=== PATIENT | female | born 1955 | race Caucasian/White ===

== ENCOUNTER 2020-05-19 08:12 | Outpatient (CLI) | payer MEDICARE, SELFPAY ==
--- NOTE | ~2020-05-19 | NM_ITS ---
EXAMINATION: NM madelyn stress w perfusion DATE: 05/19/2020 14:23 INDICATION: Dyspnea on exertion. TECHNIQUE: Rest images were obtained following intravenous administration of 10.9 mCi Tc99m tetrofosm in (Myoview). The patient was infused intravenously with Lexiscan (regadenoson). Then, 33 mCi Tc99m t etrofosmin (Myoview) was administered intravenously, and supine and prone stress images were obtained . Data was reconstructed into short axis and horizontal and vertical long axis SPECT images. Gated SP ECT images were also obtained. COMPARISON: Myocardial perfusion imaging 11/11/2016 FINDINGS: There is no definite reversible or fixed perfusion abnormality to suggest ischemia or infar ction. There is no segmental wall motion abnormality. Left ventricular ejection fraction measures > 70%. IMPRESSION: 1. No definite ischemia or infarct. 2. Normal left ventricular ejection fraction measuring >70%. Reviewed, dictated and finalized at location A.
--- NOTE | 2020-05-19 09:38 | EST_ITS ---
Patient Info Name: Inna Craig Age: 64 years : 1955 Gender: Female Ht: 60 in Wt: 250 lbs BSA: 2.27 m2 Exam Date: 05/19/2020 9:45 AM Exam Location: [facility] Stress Patient Status: Outpatient Admit Date: 05/19/2020 Staff Ordering Physician: Aleksandra Robbins NP Attending Provider: Aleksandra Robbins NP Exercise Technologist: Ashley Hampton RDCS Exercise Physician: Alvarez Nunes DO Exam Type: CA stress madelyn w NM Study Info Indications R06.02 - Shortness of breath A regadenoson stress test was performed. Summary 1. 1. Negative Lexiscan stress test for ischemic ST changes by ECG criteria. 2. 2. Stable hemodynamics throughout the test. 3. 3. Nuclear scan to follow and will be reported separately. Please correlate with it. 4. 4. Patient informed of the above results. Protocol: Lexiscan Stress ECG Details Stage: REST Duration (min): 9 min : 30 sec HR (bpm): 69 SBP (mmHg): 128 DBP (mmHg): 72 Stage: REST Duration (min): 14 min : 35 sec HR (bpm): 71 SBP (mmHg): 128 DBP (mmHg): 72 Stage: STAGE 1 Duration (min): 1 min : 0 sec HR (bpm): 72 SBP (mmHg): 137 DBP (mmHg): 80 Stage: RECOVERY Duration (min): 1 min : 0 sec HR (bpm): 78 SBP (mmHg): 137 DBP (mmHg): 80 Stage: RECOVERY Duration (min): 2 min : 0 sec HR (bpm): 78 SBP (mmHg): 128 DBP (mmHg): 76 Stage: RECOVERY Duration (min): 3 min : 0 sec HR (bpm): 77 SBP (mmHg): 117 DBP (mmHg): 71 Stage: RECOVERY Duration (min): 4 min : 0 sec HR (bpm): 76 SBP (mmHg): 117 DBP (mmHg): 71 Stage: RECOVERY Duration (min): 5 min : 0 sec HR (bpm): 74 SBP (mmHg): 130 DBP (mmHg): 71 Stage: RECOVERY Duration (min): 5 min : 3 sec HR (bpm): 74 SBP (mmHg): 130 DBP (mmHg): 71 Rest HR: 71 bpm Peak HR: 80 bpm Rest Sys BP: 128 mmHg Peak Sys BP: 137 mmHg Max Pred HR: 156 bpm % Max Pred HR: 51 % Target HR: 133 bpm Max RPP: 10,960 bpm*mmHg Termination Reason: Completed protocol Cardiac Symptoms: Shortness of breath Total Time: 1 min : 0 sec Rest Sales BP: 72 mmHg Peak Sales BP: 80 mmHg Total Dose: 0.4 mg Resting ECG Sinus rhythm. Stress ECG No ST changes. Arrhythmias None. Report Signatures
== END 2020-05-19 08:13 | disposition home or self-care (01) ==
LOC: ANHCARD 08:25
PROVIDERS: PCP Nurse Practitioner; Visit Provider Nurse Practitioner
DX: R06.02 Shortness of breath (principal)
CPT/HCPCS: 78452; 93017; A9502; J2785

== ENCOUNTER 2020-07-13 14:04 | Outpatient (CLI) | payer MEDICARE, SELFPAY ==
--- NOTE | ~2020-07-13 | MR_ITS ---
EXAMINATION: MR humerus RT wo con DATE: 07/13/2020 14:59 INDICATION: Right upper arm pain TECHNIQUE: Magnetic resonance imaging (MRI) of the right humerus/upper arm was performed without intr avenous contrast. Sequences included axial, sagittal and coronal T1-weighted FSE and axial, sagittal and coronal fluid sensitive FSE STIR. COMPARISON: Radiographs dated 03/21/2019 FINDINGS: Bone alignment is normal. Normal marrow signal throughout with no fracture, reactive edema or patholo gic marrow replacing process. Normal muscle bulk and signal throughout the right upper arm. No right elbow or glenohumeral joint effusion. Supraspinatus tendon tear along the greater tuberosity which ap pears likely for near full-thickness. Further assessment is limited by the large field of view of betsy ging no evident asymmetric fatty atrophy of the visualized rotator cuff musculature. IMPRESSION: 1. Right rotator cuff tear involving the distal supraspinatus tendon which appears winter near full-t hickness however evaluation is limited due to the large field of view of imaging. If clinically indic ated could consider dedicated right shoulder MRI. Reviewed, dictated and finalized at location A. 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 Right rotator cuff tear involving the distal supraspinatus tendon which appe ars winter near full-thickness however evaluation is limited due to the large f ield of view of imaging. If clinically indicated could consider dedicated right shoulder MRI.
== END 2020-07-13 14:05 | disposition home or self-care (01) ==
PROVIDERS: PCP Nurse Practitioner; Visit Provider Nurse Practitioner
DX: M75.111 Incomplete rotator cuff tear or rupture of right shoulder, not specified as traumatic (principal)
CPT/HCPCS: 73218

== ENCOUNTER → 2020-07-29 08:06 | Outpatient (CLI) | payer MEDICARE, SELFPAY ==
--- NOTE | ~2020-07-29 | CT_ITS ---
EXAMINATION:CT chest wo con DATE: 07/29/2020 08:31 INDICATION: Solitary pulmonary nodule. TECHNIQUE: Computed tomography (CT) of the chest was performed without intravenous contrast. Automate d exposure control and iterative reconstruction technique were employed. The dose-length product (DLP ) was 349.73 mGy-cm. COMPARISON: Chest CT 02/28/2014 FINDINGS: There is a 7 mm nodule in right upper lobe, stable from 02/28/2014. There is mild atelectasi s bilaterally. There are subpleural bands in the lower lobes. No pleural effusion. The heart size is normal. There are coronary artery calcifications. No pericardial effusion. There is diffuse hepatic s teatosis. There are changes of anterior fusion procedure in cervical spine. There is mild thoracic sp ondylosis. IMPRESSION: 1. Chronic pulmonary nodule, consistent with granulomatous disease. Reviewed, dictated and finalized at location A. ER ENAMELING
== END ==
PROVIDERS: PCP Nurse Practitioner; Visit Provider Nurse Practitioner
DX: R91.1 Solitary pulmonary nodule (principal)
CPT/HCPCS: 71250

== ENCOUNTER → 2020-08-31 13:29 | Outpatient (CLI) | payer MEDICARE, SELFPAY ==
--- NOTE | ~2020-08-31 | MM_ITS ---
EXAMINATION: MM screening lisa BI w isabella HISTORY: Screening TECHNIQUE: Craniocaudal and mediolateral oblique 3-D tomosynthesis images were obtained and synthetic 2-D images were generated. CAD analysis was submitted and interpreted. COMPARISON: Comparison to multiple prior studies sequentially, with oldest reviewed study dated 01/20. BREAST PARENCHYMAL COMPOSITION: There are scattered areas of fibroglandular density. FINDINGS: There is no evidence of suspicious mass, calcification, or architectural distortion to sugg est malignancy in either breast. There has been no suspicious interval change. IMPRESSION: 1. No mammographic evidence of malignancy. 2. Recommend routine screening mammography in one year. BI-RADS Category 1: Negative Reviewed, dictated and finalized at location A. 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
== END ==
PROVIDERS: PCP Nurse Practitioner; Visit Provider Nurse Practitioner
DX: Z12.31 Encounter for screening mammogram for malignant neoplasm of breast (principal)
CPT/HCPCS: 77063; 77067

== ENCOUNTER 2020-10-30 18:11 | Emergency (ER) | payer MEDICARE, SELFPAY ==
[2020-10-30 20:47] VITALS: BP 131/87; PULSE 116; RESP 20; TEMP 35.8; O2SAT 95
[2020-10-30] MEDS: IBUPROFEN 600 MG TABLET PO (22:23)
[2020-10-30] MEDS: diazePAM (*CRX) 5 MG TABLET PO (22:23)
--- NOTE | 2020-10-30 23:14 | ED.BACK ---
HPI - Back Pain/Injury General Chief Complaint: Back Pain/Injury Stated Complaint: jittery Time Seen by Provider: 10/30/20 21:32 History of Present Illness HPI Narrative: Patient is a 65-year-old female who presents ER with complaint of increased movement in her legs. Patient reports she has some chronic back pain that is flaring tonight. There is no improvement with Flexeril. Is causing her restless leg syndrome to be worse than typical and her legs just will not stop moving despite her taking her ropinirole. She denies any new traumatic injury. No numbness or tingling. She has no urinary or fecal incontinence/retention. Related Data Allergies Allergy/AdvReac Type Severity Reaction Status Date / Time adhesive Allergy Unknown Unknown Verified 10/30/20 20:46 ciprofloxacin Allergy Unknown Unknown Verified 10/30/20 20:46 clarithromycin Allergy Unknown Unknown Verified 10/30/20 20:46 gabapentin Allergy Unknown Unknown Verified 10/30/20 20:46 metformin Allergy Unknown diarrhea Verified 10/30/20 20:46 neomycin Allergy Unknown Itching Verified 10/30/20 20:46 oseltamivir Allergy Unknown Unknown Verified 10/30/20 20:46 Penicillins Allergy Unknown Unknown Verified 10/30/20 20:46 Sulfa (Sulfonamide Allergy Unknown Unknown Verified 10/30/20 20:46 Antibiotics) Review of Systems Genitourinary: Genitourinary: Denies nocturia and Denies urinary incontinence Musculoskeletal: Musculoskeletal: Reports back pain and Denies muscle cramps Comments: Restless legs Neurologic: Denies focal weakness and Denies numbness PMFSH Past Medical History Medical History Asthma Basal cell carcinoma BMI 45.0-49.9, adult Depression Diabetes Fibromyalgia Ganglion cyst GERD without esophagitis Hepatic steatosis Hyperlipemia, mixed Hypertension Hypertension IBS (irritable bowel syndrome) Lumbar disc disease Nodule of right lung Right rotator cuff tendinitis RLS (restless legs syndrome) Tinea pedis of both feet Type 2 diabetes mellitus with diabetic neuropathy Surgical History Surgical History History of carpal tunnel release (~1996) History of cholecystectomy (~1989) History of discectomy (~2004) Cervical History of hysterectomy (~1980) History of lithotripsy (~2001) Hx of sinus surgery (~1997) Hx of tonsillectomy Family History Family History Father Hypertension Cerebrovascular accident Family history of suicide, Onset Age: 72 Patient's father is Mother Family history of malignant neoplasm Family history of primary malignant neoplasm of liver, Onset Age: 50 Patient's mother is Grandparent Cerebrovascular accident Sibling Patient's brother is in good health Patient's sister is Other Diabetes mellitus Social History Social History Smoking status: Never smoker Alcohol intake: current Gender identity (if verbalized by the patient): Female Sexual Orientation (if Verbalized by the Patient): Straight or Heterosexual Exam Narrative: Exam Narrative: GENERAL: Well-appearing, well-nourished, and in no acute distress. HEAD: Normocephalic, atraumatic. EXTREMITIES: Normal range of motion. Constant restless movement of the lower extremities at the ankles. Back: No reproducible midline tenderness of the lumbar or sacral spine. No paraspinal muscular tenderness at these levels. No visual evidence of trauma. SKIN: Warm, dry, no rash. NEURO: No focal deficits. Alert and oriented x3. PSYCH: Normal mood and affect. Course Course Emergency Course: Patient feels much more comfortable and legs have calmed down since receiving Valium and ibuprofen. Discharge home. Vital Signs Vital signs: Vital Signs Temperature 96.4 F L 10/30/20 20:47 Pulse Rate 116 H
[2020-10-30 23:27] VITALS: BP 146/104; PULSE 99; RESP 22; O2SAT 96
== END 2020-10-30 23:29 | disposition home or self-care (01) ==
PROVIDERS: Emergency Provider Emergency Medicine; PCP Nurse Practitioner
DX: G25.81 Restless legs syndrome (principal); E11.42 Type 2 diabetes mellitus with diabetic polyneuropathy; J45.909 Unspecified asthma, uncomplicated; M79.7 Fibromyalgia; K21.9 Gastro-esophageal reflux disease without esophagitis; E78.2 Mixed hyperlipidemia; I10 Essential (primary) hypertension; K58.9 Irritable bowel syndrome, unspecified; Z85.828 Personal history of other malignant neoplasm of skin; Z79.84 Long term (current) use of oral hypoglycemic drugs
CPT/HCPCS: 99283; A9270

== ENCOUNTER 2020-11-04 13:49 | Emergency (ER) | payer MEDICARE, SELFPAY ==
[2020-11-04 13:54] VITALS: BP 148/84; PULSE 97; RESP 16; TEMP 36.9; O2SAT 98
--- NOTE | 2020-11-04 13:56 | ED.GENADULT ---
HPI - General Adult General Chief complaint: Skin/Abscess/Foreign Body Stated complaint: swelling in nose Time Seen by Provider: 11/04/20 13:52 Source: patient Mode of arrival: ambulatory Limitations: no limitations History of Present Illness HPI narrative: 65-year-old female patient presents to the [facility] with complaints of swelling to the inside of the left nostril for the past 2 to 3 days. Patient denies any injury to the nose that she is aware of. Patient states she went to her primary doctor yesterday and they looked inside her nose but just said that it was red. Patient states that the swelling has significantly worsened since yesterday. Patient states that it is a little tender when palpating the left outer nose. Patient denies any fevers, body aches or chills. Denies any nosebleed. Patient states she is scheduled to see Dr. Bello on Monday. Patient states she does have a history of basal cell carcinoma to this area. Related Data Allergies Allergy/AdvReac Type Severity Reaction Status Date / Time adhesive Allergy Unknown Unknown Verified 10/30/20 20:46 ciprofloxacin Allergy Unknown Unknown Verified 10/30/20 20:46 clarithromycin Allergy Unknown Unknown Verified 10/30/20 20:46 gabapentin Allergy Unknown Unknown Verified 10/30/20 20:46 metformin Allergy Unknown diarrhea Verified 10/30/20 20:46 neomycin Allergy Unknown Itching Verified 10/30/20 20:46 oseltamivir Allergy Unknown Unknown Verified 10/30/20 20:46 Penicillins Allergy Unknown Unknown Verified 10/30/20 20:46 Sulfa (Sulfonamide Allergy Unknown Unknown Verified 10/30/20 20:46 Antibiotics) Review of Systems Review of Systems: Narrative: CONSTITUTIONAL: Denies fever, chills, or sweats. EYES: Denies visual changes, redness, or discharge. ENT: Positive left nostril swelling and pain. Denies rhinorrhea, congestion, sore throat, or otalgia. CARDIOVASCULAR: Denies chest pain, palpitations, or edema. RESPIRATORY: Denies cough or dyspnea. GASTROINTESTINAL: Denies abdominal pain, nausea, vomiting, or diarrhea. GENITOURINARY: Denies dysuria or hematuria. SKIN: Denies rash or itching. MUSCULOSKELETAL: Denies back pain, joint pain, or myalgia. NEUROLOGIC: Denies headache, numbness, or weakness. PSYCHIATRIC: Denies anxiety or depression. [facility] Past Medical History Medical History Abdominal pain, chronic, left upper quadrant Abscess Allergic dermatitis Asthma Basal cell carcinoma Benign hypertension Bilateral leg cramps BMI 45.0-49.9, adult Cellulitis of left ear canal Chronic pain disorder Cough in adult Degeneration of intervertebral disc, site unspecified Depression Diabetes Diabetes 1.5, managed as type 2 Diarrhea in adult patient Difficulty chewing due to dentures Disorder of thyroid, unspecified NAVARRO (dyspnea on exertion) Encounter for screening mammogram for malignant neoplasm of breast Enlarged liver Essential (primary) hypertension Family history of other cardiovascular diseases Fibromyalgia Ganglion cyst Generalized anxiety disorder GERD without esophagitis Heartburn Hepatic steatosis Hx of pancreatitis Hyperlipemia, mixed Hyperlipidemia, unspecified Hypersomnia Hypertension Hypertension Hypokalemia IBS (irritable bowel syndrome) Impacted cerumen of both ears Intervertebral disc disorders with radiculopathy, thoracolumbar region Irritable bowel syndrome with diarrhea Irritable bowel syndrome without diarrhea Left leg pain Lumbar back pain with radiculopathy affecting right lower extremity Lumbar disc disease Lymph node symptom Medicare annual wellness visit, subsequent Morbid (severe) obesity due to excess calories Morbid obesity Myalgia and myositis, unspecified Nodule of right lung Obesity (BMI 30.0-34.9) Obesity, unspecified Obstructive sleep apnea (adult) (pediatric) Other and unspecified hyperlipidemia Other asthma Other chronic pain Other specified acquired hypothyroidism Presence o
== END 2020-11-04 14:14 | disposition home or self-care (01) ==
PROVIDERS: Emergency Provider Nurse Practitioner Family; PCP Nurse Practitioner Family
DX: J34.89 Other specified disorders of nose and nasal sinuses (principal); J45.909 Unspecified asthma, uncomplicated; Z85.828 Personal history of other malignant neoplasm of skin; I10 Essential (primary) hypertension; M79.7 Fibromyalgia; K21.9 Gastro-esophageal reflux disease without esophagitis; R11.2 Nausea with vomiting, unspecified; G25.81 Restless legs syndrome; E66.01 Morbid (severe) obesity due to excess calories; E11.42 Type 2 diabetes mellitus with diabetic polyneuropathy
CPT/HCPCS: 99213; G0463

== ENCOUNTER 2021-02-07 18:59 | Inpatient (IN) | payer MEDICARE, SELFPAY ==
--- NOTE | ~2021-02-07 | CT_ITS ---
EXAMINATION: CT abdomen pelvis w con DATE: 02/07/2021 20:27 INDICATION: Epigastric abdominal pain TECHNIQUE: Computed tomography (CT) of the abdomen and pelvis was performed with 100 cc Omnipaque 350 intravenous contrast. Automated exposure control and iterative reconstruction technique were employe d. Exam dose: 1316.31 mGy-cm total exam DLP. COMPARISON: None. FINDINGS: There is atelectasis at the base of the lingula and both lower lobes. Normal heart size. No pericardial or pleural effusion. Diffuse hepatic steatosis. Status post cholecystectomy. No pancreatic mass lesion or calcification. N ormal splenic size. Normal morphology of the adrenal glands. There is an indeterminate hypoenhancing 2.7 cm mid lateral left renal mass with attenuation of 30 Stan nsfield units. There is adjacent perinephric stranding thickening of the lateral conal fascia, which may indicate inflammatory change has been renal abscess versus malignancy. Consider MR renal examinat ion for further evaluation of both kidneys. There is loss of cortical medullary differentiation in the posterior lateral aspect of the mid right kidney and anteromedial lower pole of the right kidney. Consider pyelonephritis, infarction. At least one pinpoint nonobstructing right renal calculus is noted. No ureteral calculus or hydrouret eronephrosis. There is calcification of the abdominal aorta and iliac arteries but no aneurysm. No intraperitoneal or retroperitoneal or pelvic mass lesion or adenopathy or ascites. Stable appearance of the appendix since 11/23/2017. There is diverticulosis of the left colon; no CT e vidence of diverticulitis. No bowel obstruction, bowel wall thickening, pneumatosis or intraperitonea l free air is detected. The urinary bladder is evacuated, which may account for moderate prominent thickening of the urinary bladder wall. Status post hysterectomy. Diffuse idiopathic skeletal hyperostosis of the thoracic spine. No suspicious osteolytic or osteoblastic lesions are noted. IMPRESSION: Diffuse hepatic steatosis Status post cholecystectomy Indeterminate hypoenhancing 2.7 cm mid lateral left renal mass with adjacent perinephric stranding an d lateral conal fascial thickening, with attenuation of 30 Hounsfield units. Differential diagnosis i ncludes abscess, neoplasm. Consider MR evaluation Loss of cortical medullary differentiation at sites within the right kidney, suggesting possible infe ction versus infarction At least one pinpoint nonobstructing right renal calculus Diverticulosis of the colon; no CT evidence of diverticulitis Status post hysterectomy Reviewed, dictated and finalized at Location A. Reviewed, dictated and finalized at location A. IMPRESSION: Diffuse hepatic steatosis Status post cholecystectomy Indeterminate hypoenhancing 2.7 cm mid lateral left renal mass with adjacent pe rinephric stranding and lateral conal fascial thickening, with attenuation of 3 0 Hounsfield units. Differential diagnosis includes abscess, neoplasm. Consider MR evaluation Loss of cortical medullary differentiation at sites within the right kidney, knox ggesting possible infection versus infarction At least one pinpoint nonobstructing right renal calculus Diverticulosis of the colon; no CT evidence of diverticulitis Status post hysterectomy
--- NOTE | ~2021-02-07 | MR_ITS ---
EXAMINATION: MR abdomen wo/w con DATE: 02/08/2021 12:16 INDICATION: Left kidney mass. TECHNIQUE: Magnetic resonance imaging (MRI) of the abdomen was performed without and with 20 mL Multi Demian intravenous contrast. Sequences included coronal T2-weighted FS FSE, coronal and axial FIESTA F S, coronal LAVA-flex, axial LAVA, axial T2-weighted FSE, axial T1-weighted dual-echo FSPGR, axial STI R FSE, and axial DWI. Postcontrast sequences included coronal LAVA-flex and a time course of axial LA VA. COMPARISON: CT abdomen and pelvis 02/07/2021, 01/12/2016 FINDINGS: There is diffuse hepatic steatosis. The liver and spleen are normal. There are changes of cholecystec marni. The pancreas, adrenal glands are normal. There is cortical thinning of the kidneys. There is a 2.8 cm hemorrhagic cyst in left kidney. There are no dilated loops of bowel. There are no pathologica lly enlarged lymph nodes. There is no free intraperitoneal fluid. IMPRESSION: 1. 2.8 cm hemorrhagic cyst in left kidney. 2. Mild atrophy of the kidneys. 3. Diffuse hepatic steatosis. Reviewed, dictated and finalized at location A.
[2021-02-07 19:05] VITALS: BP 144/90; PULSE 79; RESP 18; TEMP 36.5; O2SAT 95
[2021-02-07 19:36] LABS: Basophils Absolute Auto 0.1 K/mm3 (0.0-0.1); Basophils Percent Auto 0.4 % (0.2-1.2); Eosinophils Absolute Auto 0.1 K/mm3 (0-0.3); Eosinophils Percent Auto 0.8 % (0-4.4); Hematocrit 40.6 % (37.0-47.0); Hemoglobin 13.1 g/dL (12.0-15.0); Immature Granulocyte Absolute 0.19 K/mm3 (0.00-0.031); Immature Granulocyte Percent A 1.1 % (0-0.5); Lymphocytes Absolute Auto 3.48 K/mm3 (0.9-3.2); Lymphocytes Percent Auto 20.4 % (18.3-44.2); Mean Corpuscular HGB Conc 32.3 g/dl (32-36); Mean Corpuscular Volume 83.5 fl (80-100); Mean Platelet Volume 10.9 fl (7.4-10.4); Monocytes Absolute Auto 1.2 K/mm3 (0.1-0.6); Monocytes Percent Auto 6.9 % (2.6-8.5); Neutrophils Percent Auto 70.4 % (45.5-73.1); Platelet Count Result 247 k/mm3 (150-375); Red Blood Count 4.86 M/mm3 (4.2-5.4); Red Cell Distribution Width 13.9 % (11.5-14.5); White Blood Count 17.1 K/mm3 (4.5-10.0)
[2021-02-07 19:41] LABS: Add Urine Microscopic? YES; Appearance Urine Cloudy (Clear); Bacteria Urine Trace /hpf; Bilirubin Urine Negative (Negative); Blood Urine Negative (Negative); Color Urine Amber (Yellow); Glucose Urine UA Negative (Negative); Ketones Urine Negative (Negative); Leukocyte Esterase Ur 2+ LEU/UL (Negative); Mucus Urine Rare /lpf; Nitrate Urine Negative (Negative); Protein Urine 2+ mg/dL (Negative); Specific Grav Ur 1.018 (1.001-1.035); Squamous Epithelial Cell Urine Many /hpf (Few); Transitional Epi Cells Urine Rare /hpf (None Seen); WBC Urine >75 /hpf
[2021-02-07 19:47] LABS: Alanine Aminotransferase 23 U/L (4-35); Alkaline Phosphatase 88 U/L (38-126); Anion Gap 12 mmol/L (8-16); Aspartate Amino Transferase 34 U/L (14-36); Bilirubin,Total 0.9 mg/dL (0.2-1.3); Blood Urea Nitrogen 13 mg/dL (7-17); Calcium 9.8 mg/dL (8.4-10.2); Carbon Dioxide 26 mmol/L (22-30); Chloride 98 mmol/L (98-107); Estimated CRCL calculation 58 ml/min; Estimated Glomerular Filt Rate > 60; Glucose 193 mg/dL (65-105); Lipase 24 U/L (23-300); Potassium 4.1 mmol/L (3.4-5.0); Sodium 136 mmol/L (137-145)
--- NOTE | 2021-02-07 19:50 | ED.ABDPAIN ---
HPI - Abdominal Pain General Chief Complaint: Abdominal Pain Stated Complaint: epigastric pain radiating to back Time Seen by Provider: 02/07/21 19:02 Source: patient, RN notes reviewed and old records reviewed Mode of arrival: ambulatory Limitations: no limitations History of Present Illness HPI narrative: Patient 65 years old white female drove herself to the emergency room because of abdominal pain and vomiting started yesterday. Patient reported the pain at the left abdomen radiating to the left flank area and across the abdomen. Associated with multiple vomiting yesterday. Today no vomiting, patient did not eat anything today. Patient reports possible fever, chills. History of cholecystectomy, appendectomy, diverticulitis and kidney stone. History of diabetes, hypertension, hyperlipidemia, asthma, hypothyroidism. Related Data Allergies Allergy/AdvReac Type Severity Reaction Status Date / Time adhesive Allergy Unknown Unknown Verified 02/07/21 19:44 ciprofloxacin Allergy Unknown Unknown Verified 02/07/21 19:44 clarithromycin Allergy Unknown Unknown Verified 02/07/21 19:44 gabapentin Allergy Unknown Unknown Verified 02/07/21 19:44 metformin Allergy Unknown diarrhea Verified 02/07/21 19:44 neomycin Allergy Unknown Itching Verified 02/07/21 19:44 oseltamivir Allergy Unknown Unknown Verified 02/07/21 19:44 Penicillins Allergy Unknown Unknown Verified 02/07/21 19:44 Sulfa (Sulfonamide Allergy Unknown Unknown Verified 02/07/21 19:44 Antibiotics) Review of Systems Review of Systems: Narrative: CONSTITUTIONAL: Denies fever, chills, or sweats. EYES: Denies visual changes, redness, or discharge. ENT: Denies rhinorrhea, congestion, sore throat, or otalgia. CARDIOVASCULAR: Denies chest pain, palpitations, or edema. RESPIRATORY: Denies cough or dyspnea. GASTROINTESTINAL: Denies abdominal pain, nausea, vomiting, or diarrhea. GENITOURINARY: Denies dysuria or hematuria. SKIN: Denies rash or itching. MUSCULOSKELETAL: Denies back pain, joint pain, or myalgia. NEUROLOGIC: Denies headache, numbness, or weakness. PSYCHIATRIC: Denies anxiety or depression. [facility] Past Medical History Medical History Abdominal pain, chronic, left upper quadrant Abscess Allergic dermatitis Asthma Basal cell carcinoma Benign hypertension Bilateral leg cramps BMI 45.0-49.9, adult BMI greater than 40 Cellulitis of left ear canal Chronic pain disorder Cough in adult Degeneration of intervertebral disc, site unspecified Depression Diabetes Diabetes 1.5, managed as type 2 Diarrhea in adult patient Difficulty chewing due to dentures Disorder of thyroid, unspecified NAVARRO (dyspnea on exertion) Encounter for screening mammogram for malignant neoplasm of breast Enlarged liver Essential (primary) hypertension Family history of other cardiovascular diseases Fibromyalgia Ganglion cyst Generalized anxiety disorder GERD without esophagitis Heartburn Hepatic steatosis Hx of pancreatitis Hyperlipemia, mixed Hyperlipidemia, unspecified Hypersomnia Hypertension Hypertension Hypokalemia IBS (irritable bowel syndrome) Impacted cerumen of both ears Intervertebral disc disorders with radiculopathy, thoracolumbar region Irritable bowel syndrome with diarrhea Irritable bowel syndrome without diarrhea Left leg pain Lumbar back pain with radiculopathy affecting right lower extremity Lumbar disc disease Lymph node symptom Medicare annual wellness visit, subsequent Morbid (severe) obesity due to excess calories Morbid obesity Myalgia and myositis, unspecified Nodule of right lung Obesity (BMI 30.0-34.9) Obesity, unspecified Obstructive sleep apnea (adult) (pediatric) Other and unspecified hyperlipidemia Other asthma Other chronic pain Other specified acquired hypothyroidism Presence of dental prosthetic device (complete) (partial) Pyelonephritis Renal insufficiency Right arm numbness Right rotator cuff tendinitis RLS
[2021-02-07] MEDS: SODIUM CHLORIDE 0.9% IV 1,000 ML 999 ML IV CONT (20:01)
[2021-02-07] MEDS: ONDANSETRON INJ 4 MG/2 ML VIAL IV PUSH (20:02)
[2021-02-07] MEDS: HYDROmorphone HCL INJ (*CRX) 1 MG/ML SYR 0.5 MG IV PUSH (20:04)
[2021-02-07 20:05] LABS: Troponin I < 0.012 ng/mL (0.000-0.034)
[2021-02-07 20:08] VITALS: BP 137/61; PULSE 75; RESP 18; O2SAT 92
[2021-02-07 22:18] VITALS: BP 107/63; PULSE 73; RESP 18; O2SAT 93
--- NOTE | 2021-02-07 23:31 | ADMGEN ---
This patient, Inna Craig, was admitted to 3 Medical Room 340-01 @2330. Patient/family oriented to hospital policies and general routines including ID bracelet, bed and alarms, visiting hours, pain management, procedures, bathroom and other care routines, personal items, smoking policy, room service/diet, and visiting hours. Information on how to activate the Rapid Response Team has been discussed. Patient/Family are encouraged to report perceived risks to care and to ask questions if they do not understand what they are told or what they should do.
[2021-02-07 23:38] VITALS: BP 134/68; PULSE 77; RESP 18; TEMP 36.9; O2SAT 98; BMI 44.5
[2021-02-08] MEDS: SODIUM CHLORIDE 0.9% IV 1,000 ML 125 ML IV CONT ×2 (00:02→08:12)
[2021-02-08] MEDS: traMADol HCL (*CRX) 50 MG TABLET PO ×4 (01:51→23:51)
--- NOTE | 2021-02-08 02:55 | PM.IMHP ---
H&P: HPI History of Present Illness Date/Time: 02/08/21 02:55 Chief Complaint: Left abdominal pain, left flank pain Narrative: 65-year-old female past medical history of kidney stones, prior urinary tract infections, uncontrolled diabetes and chronic pain who presented to the ER with abdominal pain and flank pain. The patient reports that she has had 3 days of left anterior abdominal pain that radiates through to her back similar to when she had prior kidney stones. Pain also has radiated across her anterior abdomen to the right side as well. She denies any accompanying dysuria or hematuria. She has noticed darker urine for the last 2 days. She reports chronic urinary urgency and frequency. She reported that her symptoms worsened on the when she developed nausea and vomiting. She reported that the only thing she was able to keep down was watermelon. Her emesis was clear without hematemesis or coffee-ground emesis. She reports chronic loose stools is unchanged from baseline. She denies any hematochezia or melena. She reported having diaphoresis, subjective fevers and chills. She checked her temperature with a temporal scanning thermometer when she was diaphoretic and temperature was 97.6?. She has been afebrile since presentation to the ER. She reports that her glucoses have been high for quite some time. However over the last couple of days her glucoses have been higher than usual up in the 300s. Her last hemoglobin A1c was 10.6. Her primary care physician was talking was starting her on some insulin but has not done so yet. Her diet with little success. She is requesting a dietitian consult. She reports that her vision has been blurry for the last several months. She has not scheduled her routine eye exam due to the pandemic. She reports her last kidney stone was about 6 years ago. She does have occasional dyspnea on exertion and chest tightness. Her symptoms are usually relieved with albuterol inhaler. She has not had any recent cough or congestion. Review of Systems Review of Systems: Narrative: 12 systems were reviewed with pertinent positives and negatives per HPI. Except as documented in the HPI, all other systems were reviewed and are negative. [facility] Past Medical History Medical History (Updated 02/08/21 @ 03:47 by Carolann Martinez DO) Allergic dermatitis Asthma Basal cell carcinoma BMI greater than 40 Chronic diarrhea Chronic pain disorder Degenerative disc disease Depression Diabetes 1.5, managed as type 2 Essential (primary) hypertension Fibromyalgia Generalized anxiety disorder GERD without esophagitis Hepatic steatosis Hyperlipemia, mixed Hypothyroidism Irritable bowel syndrome with diarrhea Lumbar back pain with radiculopathy affecting right lower extremity Lumbar disc disease Morbid (severe) obesity due to excess calories Morbid obesity Nodule of right lung Obesity, unspecified Obstructive sleep apnea (adult) (pediatric) Likely obstructive sleep apnea however patient has not have polysomnogram Other asthma Right arm numbness Right rotator cuff tendinitis RLS (restless legs syndrome) Tinea pedis of both feet Type 2 diabetes mellitus with diabetic neuropathy Type 2 diabetes mellitus with other specified complication Urinary incontinence in female Surgical History Surgical History (Updated 02/08/21 @ 03:22 by Carolann Martinez DO) History of appendectomy History of carpal tunnel release (~1996) History of cholecystectomy (~1989) History of discectomy (~2004) Cervical History of lithotripsy (~2001) History of total hysterectomy with bilateral salpingo-oophorectomy (BSO) (~1980) Hx of sinus surgery (~1997) Hx of tonsillectomy Family History Family History (Updated 02/08/21 @ 03:30 by Carolann Martinez DO) Father Hypertension Cerebrovascular accident Family history of suicide, Onset Age: 72 Mother Family history of malignant neoplasm Family history of primary ma
[2021-02-08 05:51] VITALS: BP 114/56; PULSE 73; RESP 16; TEMP 36.7; O2SAT 93
[2021-02-08] MEDS: LEVOTHYROXINE SODIUM 75 MCG TABLET PO (05:52)
[2021-02-08 06:04] LABS: Basophils Absolute Auto 0.1 K/mm3 (0.0-0.1); Basophils Percent Auto 0.4 % (0.2-1.2); Eosinophils Absolute Auto 0.2 K/mm3 (0-0.3); Eosinophils Percent Auto 1.3 % (0-4.4); Hematocrit 36.7 % (37.0-47.0); Hemoglobin 11.6 g/dL (12.0-15.0); Immature Granulocyte Percent A 0.8 % (0-0.5); Lymphocytes Absolute Auto 2.73 K/mm3 (0.9-3.2); Lymphocytes Percent Auto 21.8 % (18.3-44.2); Mean Corpuscular HGB Conc 31.6 g/dl (32-36); Mean Corpuscular Hemoglobin 26.9 pg (26-34); Mean Corpuscular Volume 85.2 fl (80-100); Monocytes Absolute Auto 0.8 K/mm3 (0.1-0.6); Monocytes Percent Auto 6.3 % (2.6-8.5); Neutrophils Absolute Auto 8.7 K/mm3 (1.3-6.7); Neutrophils Percent Auto 69.4 % (45.5-73.1); Platelet Count Result 210 k/mm3 (150-375); Red Blood Count 4.31 M/mm3 (4.2-5.4); Red Cell Distribution Width 13.8 % (11.5-14.5); White Blood Count 12.5 K/mm3 (4.5-10.0)
[2021-02-08 06:28] LABS: Anion Gap 9 mmol/L (8-16); Blood Urea Nitrogen 13 mg/dL (7-17); Calcium 8.4 mg/dL (8.4-10.2); Carbon Dioxide 25 mmol/L (22-30); Chloride 104 mmol/L (98-107); Estimated CRCL calculation 59 ml/min; Estimated Glomerular Filt Rate > 60; Glucose 152 mg/dL (65-105); Potassium 3.4 mmol/L (3.4-5.0); Sodium 138 mmol/L (137-145)
[2021-02-08 06:40] VITALS: O2SAT 93
[2021-02-08 08:04] LABS: Glucose Point of Care 146 mg/dl (65-105)
[2021-02-08] MEDS: ENOXAPARIN 40 MG/0.4 ML SYRINGE SUB-Q (08:13)
[2021-02-08] MEDS: PREGABALIN (*CRX) 50 MG CAPSULE PO (08:13)
[2021-02-08] MEDS: DULoxetine HCL 60 MG CAPSULE.DR PO (08:13)
[2021-02-08 08:14] VITALS: PULSE 96; O2SAT 93
[2021-02-08] MEDS: ROSUVASTATIN 10 MG TABLET 20 MG PO (08:14)
[2021-02-08] MEDS: LOSARTAN POTASSIUM 100 MG TABLET PO (08:14)
[2021-02-08] MEDS: GLIMEPIRIDE 2 MG TABLET PO (08:14)
[2021-02-08] MEDS: atenoloL 50 MG TABLET PO (08:14)
[2021-02-08] MEDS: hydroCHLOROthiazide 12.5 MG CAPSULE PO (08:14)
[2021-02-08] MEDS: PANTOPRAZOLE 40 MG TABLET PO (08:14)
[2021-02-08] MEDS: rOPINIRole HCL 0.5 MG TABLET PO ×3 (08:15→17:42)
--- NOTE | 2021-02-08 11:13 | PCNSR ---
On 02/08/21, the student,Tg Sidhu, provided care and completed [facility] documentation on this patient. I have reviewed the student's documentation and agree with the findings.
[2021-02-08 12:32] LABS: Glucose Point of Care 180 mg/dl (65-105)
--- NOTE | 2021-02-08 13:28 | WPDURCON ---
Assessment and Plan Assessment and plan (1) Renal cyst, left: Code(s): N28.1 - Cyst of kidney, acquired Status: Acute Assessment and Plan: this is a benign hemorrhagic cyst. No further Evaluation or treatment is needed (2) Abnormal urinalysis: Code(s): R82.90 - Unspecified abnormal findings in urine Status: Acute Assessment and Plan: admitted with a presumptive diagnosis of pyelonephritis. Urine culture pending. Treat with appropriate oral antibiotics (3) History of kidney stones: Code(s): Z87.442 - Personal history of urinary calculi Status: Acute Assessment and Plan: no large stones on CT scan. Suggestion of a punctate right renal stone on CT Urology Consult Note HPI Date Seen: 02/08/21 Requesting Physician: Eloy Chavez MD Primary Care Provider: Carlos Ivan NP Consult Narrative Narrative: Inna Craig is a 65 year old female With a previous history of nephrolithiasis. She has not had any stones in the last 7 or 8 years. She was treated with lithotripsy in the past and [facility] and [place]. She comes into the hospital with a several day history of left flank pain. She had some dark urine and low-grade fever. She has been presumptively diagnosed with pyelonephritis. A CT scan revealed a 2.7 cm left renal mass. It was cystic in nature. MRI confirms hemorrhagic cyst. She does not get frequent bladder infections. She has not get frequent kidney infections. Review of Systems Review of Systems: All systems reviewed & are unremarkable except as noted in HPI and below PMFSH Past Medical History Medical History (Updated 02/08/21 @ 13:30 by Reilly Abdi MD) Allergic dermatitis Asthma Basal cell carcinoma BMI greater than 40 Chronic diarrhea Chronic pain disorder Degenerative disc disease Depression Diabetes 1.5, managed as type 2 Essential (primary) hypertension Fibromyalgia Generalized anxiety disorder GERD without esophagitis Hepatic steatosis Hyperlipemia, mixed Hypothyroidism Irritable bowel syndrome with diarrhea Lumbar back pain with radiculopathy affecting right lower extremity Lumbar disc disease Morbid (severe) obesity due to excess calories Morbid obesity Nodule of right lung Obesity, unspecified Obstructive sleep apnea (adult) (pediatric) Likely obstructive sleep apnea however patient has not have polysomnogram Other asthma Right arm numbness Right rotator cuff tendinitis RLS (restless legs syndrome) Tinea pedis of both feet Type 2 diabetes mellitus with diabetic neuropathy Type 2 diabetes mellitus with other specified complication Urinary incontinence in female Surgical History Surgical History (Updated 02/08/21 @ 07:19 by Carolann Martinez DO) H/O cervical spine surgery History of appendectomy History of carpal tunnel release (~1996) History of cholecystectomy (~1989) History of discectomy (~2004) Cervical History of lithotripsy (~2001) History of total hysterectomy with bilateral salpingo-oophorectomy (BSO) (~1980) Hx of sinus surgery (~1997) Hx of tonsillectomy Family History Family History (Updated 02/08/21 @ 03:30 by Carolann Martinez DO) Father Hypertension Cerebrovascular accident Family history of suicide, Onset Age: 72 Mother Family history of malignant neoplasm Family history of primary malignant neoplasm of liver, Onset Age: 50 Grandparent Cerebrovascular accident Sibling Patient's brother is in good health Patient's sister is Other Diabetes mellitus Social History Social History (Updated 02/08/21 @ 03:38 by Carolann Martinez DO) Social History: She has been to her current for 18 years. 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 She has 2 daughters and 2 stepdaughters. She recently lost 1 of her stepdaughters. Primary care provider: Carlos Pearl
[2021-02-08 14:00] VITALS: BP 92/52; PULSE 66; RESP 16; TEMP 36.8; O2SAT 92
--- NOTE | 2021-02-08 14:57 | PM.IMPN ---
Progress Note: A&P Assessment and Plan (1) Acute pyelonephritis: Code(s): N10 - Acute pyelonephritis Status: Acute Assessment and Plan: uti with possible pyleonephritis with left flank pain. goign for evaluation with MRI today. will contieu ceftraixone which is ordered. follw urine culture (2) Left kidney mass: Code(s): N28.89 - Other specified disorders of kidney and ureter Status: Acute Assessment and Plan: will consult urology for evaluation of this. 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 along with glimiperide, januva. ssi. hypoglycmia protocol. she is planend to start on insulin as op basis which has not yet started. Subjective Date/time seen: 02/08/21 14:57 Interval history: reports pain in her left flank. no fever, chills. no nausea, vomtiign. may be she had low grade fever. ct scan reviewd. goign for MRI today. Review of Systems Review of Systems: Narrative: - CONSTITUTIONAL: Denies weight loss, fever and chills. - HEENT: Denies changes in vision and hearing - RESPIRATORY: Denies SOB and cough. - CV: Denies palpitations and CP. - GI: reports abdominal pain, denies nausea, vomiting and diarrhea. - : Denies dysuria and urinary frequency. - MSK: Denies myalgia and joint pain. - SKIN: Denies rash and pruritus. - NEUROLOGICAL: Denies headache and syncope. - PSYCHIATRIC: Denies recent changes in mood. Denies anxiety and depression. All systems reviewed & are unremarkable except as noted in HPI and below Constitutional: Constitutional: Reports fatigue and Reports weakness Neurologic: Reports weakness Endocrine: Endocrine: Reports fatigue Exam Narrative: Exam Narrative: PHYSICAL EXAM: General: Morbidly obese, no acute distress HEENT: Mucous membranes are tacky, edentulous in upper and lower jaw, crowded posterior oropharynx, pupils are equal and reactive, large neck circumference, palpable thyroid Respiratory: no added sounds clear to ausculation, no increased work of breathing Cardiovascular: Regular rate, regular rhythm, 2+ bilateral radial pedal pulses Gastrointestinal: Obese, nontender, soft, positive bowel sounds Skin: Generalized pallor, non jaundice Musculoskeletal: No pitting edema, no clubbing, no cyanosis Neurological: alert and oreinted, no gross motor deficits noted Psychiatric: Appropriate mood and affect, pleasant and cooperative : Deferred Hematologic/lymphatic: No petechiae, no bruising, no significant lymphadenopathy Objective Data Vital Signs Vital Signs: Vital Signs - 24 hr 02/07/21 19:05 02/07/21 20:08 02/07/21 22:18 Temperature 97.7 F Pulse Rate 79 75 73 Respiratory Rate 18 18 18 Blood Pressure 144/90 H 137/61 107/63 Pulse Oximetry 95 92 93 02/07/21 23:38 02/08/21 05:51 02/08/21 06:40 Temperature 98.5 F 98.0 F Pulse Rate 77 73 Respiratory Rate 18 16 Blood Pressure 134/68 114/56 L Pulse Oximetry 98 93 93 02/08/21 08:14 Temperature Pulse Rate 96 Respiratory Rate Blood Pressure Pulse Oximetry 93 Intake/Output Intake/Output: Intake & Output 02/05/21 02/06/21 02/07/21 02/08/21 23:59 23:59 23:59 23:59 Intake Total 1050 1630 Output Total 400 Balance 1050 1230 Meds/Results Medications: Active Medications Generic Name Dose Route Start Last Admin Trade Name Freq PRN Reason Stop Dose Admin Acetaminophen 650 mg 02/08/21 03:42 Acetaminophen 325 Mg Tablet PO Q4H PRN Mild Pain (1-3) or Fever Albuterol 2.5 mg 02/08/21 03:00 Albuterol Sulfate Neb 2.5 Mg/3 Ml Inh INHALATION Q4-6H PRN shortness of breath or wheezing Alprazol
[2021-02-08 15:40] LABS: Glucose Point of Care 170 mg/dl (65-105)
[2021-02-08 19:41] VITALS: BP 104/57; PULSE 75; RESP 18; TEMP 36.3; O2SAT 96
[2021-02-08] MEDS: INSULIN GLARGINE (*BKC) 100 UNITS/ML 10 UNITS SUB-Q (21:00)
[2021-02-08 22:03] LABS: Glucose Point of Care 158 mg/dl (65-105)
[2021-02-09 04:43] VITALS: BP 98/55; PULSE 87; RESP 16; TEMP 36.9; O2SAT 92
[2021-02-09] MEDS: traMADol HCL (*CRX) 50 MG TABLET PO (05:52)
[2021-02-09] MEDS: LEVOTHYROXINE SODIUM 75 MCG TABLET PO (05:52)
[2021-02-09 05:56] LABS: Basophils Percent Auto 0.3 % (0.2-1.2); Eosinophils Absolute Auto 0.2 K/mm3 (0-0.3); Eosinophils Percent Auto 1.7 % (0-4.4); Hemoglobin 11.7 g/dL (12.0-15.0); Immature Granulocyte Absolute 0.11 K/mm3 (0.00-0.031); Immature Granulocyte Percent A 0.8 % (0-0.5); Lymphocytes Percent Auto 23.1 % (18.3-44.2); Mean Corpuscular HGB Conc 30.8 g/dl (32-36); Mean Corpuscular Hemoglobin 26.4 pg (26-34); Mean Corpuscular Volume 85.8 fl (80-100); Mean Platelet Volume 11.2 fl (7.4-10.4); Monocytes Absolute Auto 0.7 K/mm3 (0.1-0.6); Monocytes Percent Auto 5.5 % (2.6-8.5); Neutrophils Absolute Auto 8.9 K/mm3 (1.3-6.7); Neutrophils Percent Auto 68.6 % (45.5-73.1); Platelet Count Result 254 k/mm3 (150-375); Red Blood Count 4.43 M/mm3 (4.2-5.4); Red Cell Distribution Width 13.8 % (11.5-14.5)
[2021-02-09 06:07] LABS: Anion Gap 10 mmol/L (8-16); Blood Urea Nitrogen 14 mg/dL (7-17); Calcium 9.1 mg/dL (8.4-10.2); Carbon Dioxide 25 mmol/L (22-30); Chloride 102 mmol/L (98-107); Estimated CRCL calculation 45 ml/min; Estimated Glomerular Filt Rate 45; Glucose 179 mg/dL (65-105); Potassium 3.6 mmol/L (3.4-5.0); Sodium 137 mmol/L (137-145)
[2021-02-09 07:03] LABS: Glucose Point of Care 166 mg/dl (65-105)
[2021-02-09] MEDS: GLIMEPIRIDE 2 MG TABLET PO (07:08)
[2021-02-09] MEDS: ENOXAPARIN 40 MG/0.4 ML SYRINGE SUB-Q (10:29)
[2021-02-09] MEDS: DULoxetine HCL 60 MG CAPSULE.DR PO (10:29)
[2021-02-09 10:30] VITALS: PULSE 87
[2021-02-09] MEDS: rOPINIRole HCL 0.5 MG TABLET PO ×3 (10:30→16:55)
[2021-02-09] MEDS: ROSUVASTATIN 10 MG TABLET 20 MG PO (10:30)
[2021-02-09] MEDS: PREGABALIN (*CRX) 50 MG CAPSULE PO (10:30)
[2021-02-09] MEDS: LOSARTAN POTASSIUM 100 MG TABLET PO (10:30)
[2021-02-09] MEDS: atenoloL 50 MG TABLET PO (10:30)
[2021-02-09] MEDS: PANTOPRAZOLE 40 MG TABLET PO (10:31)
[2021-02-09] MEDS: hydroCHLOROthiazide 12.5 MG CAPSULE PO (10:31)
[2021-02-09 11:39] LABS: Glucose Point of Care 135 mg/dl (65-105)
[2021-02-09 14:00] VITALS: BP 107/49; PULSE 73; RESP 14; TEMP 36; O2SAT 95
--- NOTE | 2021-02-09 14:36 | PM.IMPN ---
Progress Note: A&P Assessment and Plan (1) Acute pyelonephritis: Code(s): N10 - Acute pyelonephritis Status: Acute Assessment and Plan: uti with possible pyleonephritis with left flank pain. goign for evaluation with MRI today. will contieu ceftraixone which is ordered. follw urine culture 02/09/21 14:36 Patient morbidly obese admitted with a pyelonephritis urine culture is pending patient also found to have lesion on left kidney and was concerning for malignancy however MRI showed hemorrhagic cyst patient is seen by urologist and further recommendation to follow, today patient states feeling better denies any abdominal pain nausea or vomiting fever or chills, will continue the present management will follow-up on urine culture and recommendation from urologist for further planning. (2) Left kidney mass: Code(s): N28.89 - Other specified disorders of kidney and ureter Status: Acute Assessment and Plan: will consult urology for evaluation of this. also goign for MRI (3) Type 2 diabetes mellitus with hyperglycemia: Qualifiers: Diabetes mellitus senior living insulin use: without terminal system operator use Qualified Code(s): E11.65 - Type 2 diabetes mellitus with hyperglycemia Code(s): E11.65 - Type 2 diabetes mellitus with hyperglycemia Status: Acute Assessment and Plan: lantus 10 untis here. along with glimiperide, januva. ssi. hypoglycmia protocol. she is planend to start on insulin as op basis which has not yet started. Additional Plan Patient's urine is not impressive for evidence of UTI however CT does suggest pyelonephritis in the right kidney and possible kidney mass verses kidney abscess of the left kidney. Patient has subsequently been started on empiric antibiotic therapy with Rocephin. Urine cultures are pending. The patient reports that her allergy to penicillins is intractable nausea and vomiting. She has not had any further vomiting or nausea since admission to the floor. She does have longstanding uncontrolled diabetes. Will start the patient on Lantus 10 units subq daily. Will continue home glimepiride and Januvia. Will add moderate sliding scale insulin with Accu-Cheks a.c. HS and hypoglycemia protocol. Dietitian consult. Subjective Date/time seen: 02/09/21 14:36 Patient morbidly obese admitted with a pyelonephritis urine culture is pending patient also found to have lesion on left kidney and was concerning for malignancy however MRI showed hemorrhagic cyst patient is seen by urologist and further recommendation to follow, today patient states feeling better denies any abdominal pain nausea or vomiting fever or chills, will continue the present management will follow-up on urine culture and recommendation from urologist for further planning. Interval history: reports pain in her left flank. no fever, chills. no nausea, vomtiign. may be she had low grade fever. ct scan reviewd. goign for MRI today. Review of Systems Review of Systems: All systems reviewed & are unremarkable except as noted in HPI and below Exam Narrative: Exam Narrative: Morbidly obese Patient is comfortable, NAD HEENT: eyes are clear and none icteric LUNGS:CTA HEART: RR S1S2 ABD: BS+, Soft and nontender Lower extremities: no edema SKIN: nonjaundiced Neuro: grossly intact. Objective Data Vital Signs Vital Signs: Vital Signs - 24 hr 02/08/21 19:41 02/09/21 04:43 02/09/21 10:30 Temperature 97.4 F L 98.5 F Pulse Rate 75 87 87 Respiratory Rate 18 16 Blood Pressure 104/57 L 98/55 L Pulse Oximetry 96 92 02/09/21 14:00 Temperature 96.8 F L Pulse Rate 73 Respiratory Rate 14 Blood Pressure 107/49 L Pulse Oximetry 95 Intake/Output Intake/Output: Intake & Output 02/06/21 02/07/21 02/08/21 02/09/21 23:59 23:59 23:59 23:59 Intake Total 1050 2720 1120 Output Total 1200 900 Balance 1050 1520 220 Meds/Results Medications: Active Medications Generic Name Dose Ro
[2021-02-09 17:30] LABS: Glucose Point of Care 145 mg/dl (65-105)
[2021-02-09 17:49] LABS: Glucose Point of Care 142 mg/dl (65-105)
[2021-02-09 20:33] VITALS: BP 107/49; PULSE 61; RESP 16; TEMP 36.8; O2SAT 97
[2021-02-09] MEDS: INSULIN GLARGINE (*BKC) 100 UNITS/ML 10 UNITS SUB-Q (21:09)
[2021-02-09 21:13] LABS: Glucose Point of Care 145 mg/dl (65-105)
[2021-02-10] MEDS: traMADol HCL (*CRX) 50 MG TABLET PO ×2 (00:02→05:55)
[2021-02-10 05:17] VITALS: BP 138/75; PULSE 68; RESP 16; TEMP 36.1; O2SAT 70
[2021-02-10] MEDS: LEVOTHYROXINE SODIUM 75 MCG TABLET PO (05:55)
[2021-02-10 07:50] LABS: Glucose Point of Care 155 mg/dl (65-105)
[2021-02-10 09:03] LABS: Hematocrit 36.8 % (37.0-47.0); Hemoglobin 11.5 g/dL (12.0-15.0); Mean Corpuscular HGB Conc 31.3 g/dl (32-36); Mean Corpuscular Hemoglobin 25.9 pg (26-34); Mean Corpuscular Volume 82.9 fl (80-100); Mean Platelet Volume 10.8 fl (7.4-10.4); Platelet Count Result 278 k/mm3 (150-375); Red Blood Count 4.44 M/mm3 (4.2-5.4); Red Cell Distribution Width 13.4 % (11.5-14.5); White Blood Count 11.7 K/mm3 (4.5-10.0)
[2021-02-10 09:12] LABS: Anion Gap 11 mmol/L (8-16); Blood Urea Nitrogen 13 mg/dL (7-17); Calcium 10.1 mg/dL (8.4-10.2); Carbon Dioxide 29 mmol/L (22-30); Chloride 98 mmol/L (98-107); Estimated CRCL calculation 54 ml/min; Estimated Glomerular Filt Rate 56; Glucose 150 mg/dL (65-105); Potassium 3.8 mmol/L (3.4-5.0); Sodium 138 mmol/L (137-145)
[2021-02-10 10:09] VITALS: PULSE 68
[2021-02-10] MEDS: atenoloL 50 MG TABLET PO (10:09)
[2021-02-10] MEDS: GLIMEPIRIDE 2 MG TABLET PO (10:10)
[2021-02-10] MEDS: ENOXAPARIN 40 MG/0.4 ML SYRINGE SUB-Q (10:11)
[2021-02-10] MEDS: DULoxetine HCL 60 MG CAPSULE.DR PO (10:11)
[2021-02-10] MEDS: hydroCHLOROthiazide 12.5 MG CAPSULE PO (10:11)
[2021-02-10] MEDS: PREGABALIN (*CRX) 50 MG CAPSULE PO (10:12)
[2021-02-10] MEDS: LOSARTAN POTASSIUM 100 MG TABLET PO (10:12)
[2021-02-10] MEDS: PANTOPRAZOLE 40 MG TABLET PO (10:12)
[2021-02-10] MEDS: ROSUVASTATIN 10 MG TABLET 20 MG PO (10:13)
[2021-02-10] MEDS: rOPINIRole HCL 0.5 MG TABLET PO ×2 (10:13→12:55)
[2021-02-10 11:49] LABS: Glucose Point of Care 117 mg/dl (65-105)
[2021-02-10 12:00] VITALS: BMI 44.5
[2021-02-10] MEDS: CYCLOBENZAPRINE HCL 5 MG TABLET PO (12:55)
--- NOTE | 2021-02-10 13:11 | PM.DS ---
DS: Admitting Diagnosis Admitting Diagnosis Admitting Diagnosis: Chief Complaint: Left abdominal pain, left flank pain DS: Discharge Diagnosis Discharge Diagnosis (1) Acute pyelonephritis: Code(s): N10 - Acute pyelonephritis Status: Acute Assessment and Plan: uti with possible pyleonephritis with left flank pain. goign for evaluation with MRI today. will contieu ceftraixone which is ordered. [facility] urine culture 02/09/21 14:36 Patient morbidly obese admitted with a pyelonephritis urine culture is pending patient also found to have lesion on left kidney and was concerning for malignancy however MRI showed hemorrhagic cyst patient is seen by urologist and further recommendation to follow, today patient states feeling better denies any abdominal pain nausea or vomiting fever or chills, will continue the present management will follow-up on urine culture and recommendation from urologist for further planning. (2) Left kidney mass: Code(s): N28.89 - Other specified disorders of kidney and ureter Status: Acute Assessment and Plan: will consult urology for evaluation of this. 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 along with glimiperide, januva. ssi. hypoglycmia protocol. she is planend to start on insulin as op basis which has not yet started. DS: Summary Hospital Course Reason for hospitalization: Chief Complaint: Left abdominal pain, left flank pain Narrative: 65-year-old female past medical history of kidney stones, prior urinary tract infections, uncontrolled diabetes and chronic pain who presented to the ER with abdominal pain and flank pain. The patient reports that she has had 3 days of left anterior abdominal pain that radiates through to her back similar to when she had prior kidney stones. Pain also has radiated across her anterior abdomen to the right side as well. She denies any accompanying dysuria or hematuria. She has noticed darker urine for the last 2 days. She reports chronic urinary urgency and frequency. She reported that her symptoms worsened on the when she developed nausea and vomiting. She reported that the only thing she was able to keep down was watermelon. Her emesis was clear without hematemesis or coffee-ground emesis. She reports chronic loose stools is unchanged from baseline. She denies any hematochezia or melena. She reported having diaphoresis, subjective fevers and chills. She checked her temperature with a temporal scanning thermometer when she was diaphoretic and temperature was 97.6?. She has been afebrile since presentation to the ER. She reports that her glucoses have been high for quite some time. However over the last couple of days her glucoses have been higher than usual up in the 300s. Her last hemoglobin A1c was 10.6. Her primary care physician was talking was starting her on some insulin but has not done so yet. Her diet with little success. She is requesting a dietitian consult. She reports that her vision has been blurry for the last several months. She has not scheduled her routine eye exam due to the pandemic. She reports her last kidney stone was about 6 years ago. She does have occasional dyspnea on exertion and chest tightness. Her symptoms are usually relieved with albuterol inhaler. She has not had any recent cough or congestion. Hospital Course: Patient morbidly obese admitted with a pyelonephritis urine culture is pending patient also found to have lesion on left kidney and was concerning for malignancy however MRI showed hemorrhagic cyst patient is seen by urologist and further recommendation to follow, today patient states fe
== END 2021-02-10 14:00 | disposition home or self-care (01) | DRG 690 ==
LOC: ANHED 22:43 → ANH3MED 02-08 01:09
PROVIDERS: Emergency Medicine; Family Medicine; Admitting Provider Internal Medicine; Emergency Provider Emergency Medicine; PCP Nurse Practitioner Family; Visit Provider Internal Medicine
DX: N10 Acute pyelonephritis (principal); Z68.41 Body mass index [BMI] 40.0-44.9, adult; E66.01 Morbid (severe) obesity due to excess calories; N28.89 Other specified disorders of kidney and ureter; E13.65 Other specified diabetes mellitus with hyperglycemia; E13.42 Other specified diabetes mellitus with diabetic polyneuropathy; E78.5 Hyperlipidemia, unspecified; E03.9 Hypothyroidism, unspecified; J45.909 Unspecified asthma, uncomplicated; G47.33 Obstructive sleep apnea (adult) (pediatric); F41.1 Generalized anxiety disorder; M79.7 Fibromyalgia; K21.9 Gastro-esophageal reflux disease without esophagitis; K58.0 Irritable bowel syndrome with diarrhea; K76.0 Fatty (change of) liver, not elsewhere classified; G25.81 Restless legs syndrome; I10 Essential (primary) hypertension; R32 Unspecified urinary incontinence; Z87.442 Personal history of urinary calculi; Z90.49 Acquired absence of other specified parts of digestive tract; Z85.828 Personal history of other malignant neoplasm of skin; Z90.710 Acquired absence of both cervix and uterus; Z90.722 Acquired absence of ovaries, bilateral
CPT/HCPCS: 36415; 74177; 74183; 80048; 80053; 81001; 82948; 83690; 84484; 85025; 85027; 87077; 87086; 87088; 87186; 96361; 96374; 96375; 99285; A9270; A9577; J0696; J1170; J1650; J1815; J2405; J7030; Q9967

== ENCOUNTER → 2021-06-19 08:41 | Outpatient (CLI) | payer MEDICARE, SELFPAY ==
--- NOTE | ~2021-06-19 | XR_ITS ---
XR ankle LT 2V 06/19/2021 13:23 Indication: Left ankle pain Procedure: 2 views left ankle Comparison: 07/11/2018 Findings: There is anatomic alignment. No fracture, subluxation or dislocation. There is degenerative calcaneal enthesophyte. No focal soft tissue abnormality. Ankle mortise intact. Impression: 1: No acute bone or joint abnormality. Reviewed, dictated and finalized at location A. Impression: 1: No acute bone or joint abnormality.
--- NOTE | ~2021-06-19 | XR_ITS ---
XR knee LT 2V 06/19/2021 13:23 Indication: Left knee pain Procedure: 2 views left knee Comparison: 06/15/2015 Findings: No fracture, subluxation or dislocation. No significant joint effusion. No significant join t space narrowing. No soft tissue abnormality. No foreign bodies. Impression: 1: No acute bone or joint abnormality. Reviewed, dictated and finalized at location A. Impression: 1: No acute bone or joint abnormality.
--- NOTE | ~2021-06-19 | XR_ITS ---
XR elbow LT 2V 06/19/2021 13:23 Indication: Left elbow pain Procedure: 2 views left elbow Comparison: No prior studies for comparison. Findings: No fracture, subluxation or dislocation. No significant joint effusion. No foreign bodies. Impression: 1: No acute bone or joint abnormality. Reviewed, dictated and finalized at location A. Impression: 1: No acute bone or joint abnormality.
== END ==
PROVIDERS: Visit Provider Nurse Practitioner Family
DX: M25.40 Effusion, unspecified joint (principal); M25.522 Pain in left elbow; M25.562 Pain in left knee; M25.572 Pain in left ankle and joints of left foot
CPT/HCPCS: 73070; 73560; 73600

== ENCOUNTER 2021-07-01 13:22 | Outpatient (CLI) | payer MEDICARE, SELFPAY ==
--- NOTE | ~2021-07-01 | US_ITS ---
EXAMINATION: US venous doppler LE EXAM DATE: 07/01/2021 15:34 INDICATION: M79.89 - Other specified soft tissue disorders. Bilateral leg pain. TECHNIQUE: Multiple grayscale, color flow and Doppler images of the lower extremity deep venous syste ms bilaterally were obtained and reviewed. Comparison is made to prior examination from 07/11/2018. FINDINGS: Right side: The right common femoral, femoral and profunda veins demonstrate normal color flow, respi ratory variation, augmentation and compressibility. Compressibility, color flow confirmed within the right popliteal, posterior tibial, peroneal, and greater saphenous veins. There is an anechoic righ t popliteal fossa round region measuring about 1.2 cm, without internal vascularity demonstrated, con tiguous to the popliteal artery and vein. No internal vascularity was demonstrated. Could be Rossi's cyst or thrombosed pseudoaneurysm. Left side: The left common femoral, femoral and profunda veins demonstrate normal color flow, respira tory variation, augmentation and compressibility. Compressibility, color flow confirmed within the l eft popliteal, posterior tibial, peroneal, and greater saphenous veins. IMPRESSION: 1. No lower extremity deep venous thrombosis bilaterally. 2. Round anechoic right popliteal fossa region, Rossi's cyst or possibly thrombosed pseudoaneurysm. Reviewed, dictated and finalized at location B. IMPRESSION: 1. No lower extremity deep venous thrombosis bilaterally. 2. Round anechoic right popliteal fossa region, Rossi's cyst or possibly throm bosed pseudoaneurysm.
== END 2021-07-01 13:23 | disposition home or self-care (01) ==
LOC: ANHIMG 13:29
PROVIDERS: PCP Family Medicine; Visit Provider Nurse Practitioner Family
DX: M79.89 Other specified soft tissue disorders (principal)
CPT/HCPCS: 93970

== ENCOUNTER → 2021-08-04 07:33 | Outpatient (CLI) | payer MEDICARE, SELFPAY ==
--- NOTE | ~2021-08-04 | XR_ITS ---
EXAMINATION: XR thoracic spine 2V EXAM DATE: 08/04/2021 09:26 INDICATION: M54.9 - Dorsalgia, unspecified . Mid and lower back pain. TECHNIQUE: Frontal and lateral projections of the thoracic spine as well as lateral swimmers projecti on of the upper thoracic spine for interpretation. There is no prior study for comparison. FINDINGS: Lower cervical fusion hardware. There is mild mid and lower thoracic disc disease. Mild mi d thoracic dextrocurvature. There are no bony erosions identified. There are no acute fractures ident ified. Paraspinal soft tissue is unremarkable. IMPRESSION: Mild thoracic spondylosis and scoliosis. Reviewed, dictated and finalized at location A. 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
--- NOTE | ~2021-08-04 | XR_ITS ---
EXAMINATION: XR lumbar spine 2-3V EXAM DATE: 08/04/2021 09:26 INDICATION: M54.9 - Dorsalgia, unspecified . TECHNIQUE: Lumber spine frontal, lateral, lateral L5-S1 projections for interpretation. There is no prior study for comparison. FINDINGS: Moderate scattered aortic arterial sclerosis. Mild diffuse lumbar disc disease. The verteb ral bodies are aligned in the AP dimension. There is moderate lower lumbar facet arthropathy. There a re no acute fractures identified. No spondylolysis. Mild lumbar levocurvature. There are cholecystect gwen clips. Sacrum, sacroiliac joints, sacral arcuate lines are intact. IMPRESSION: 1. Moderate lower lumbar facet arthropathy. 2. Mild disc disease. Reviewed, dictated and finalized at location A. ESS SERVICES MANAGER
--- NOTE | ~2021-08-04 | MM_ITS ---
EXAMINATION: MM diagnostic lisa BI w isabella HISTORY: Bilateral breast pain, tender medial palpable right breast lump, bilateral axillary swelling , redness TECHNIQUE: ML, MLO and craniocaudal 3-D tomosynthesis images of both breasts were performed and synth etic 2-D images were generated. CAD analysis was submitted and interpreted. COMPARISON: 08/31/2020, 08/19/2019, 08/08/2018 bilateral screening mammogram examinations BREAST PARENCHYMAL COMPOSITION: The breasts are almost entirely fatty. FINDINGS: Scattered bilateral benign calcifications are noted. No suspicious mass or architectural di stortion, malignant calcification, skin thickening or retraction or significant new or developing den sity is detected. IMPRESSION: 1. No mammographic evidence of malignancy 2. Routine mammographic screening is recommended. BI-RADS Category 1: Negative Reviewed, dictated and finalized at location A. R TELEVISION CONSOLE MONITOR
--- NOTE | ~2021-08-04 | US_ITS ---
US abdomen complete EXAMINATION: US Abdomen Complete INDICATION: Generalized abdominal pain PROCEDURE: Realtime High Resolution abdomen ultrasound. COMPARISON: No prior studies for comparison FINDINGS: Gallbladder is surgically absent. Common bile duct measures 10 mm. Liver echotexture is increased, consistent with fatty infiltration. Pancreas within normal limits. Pancreatic tail is obscured by bowel gas. Spleen is unremarkeable. Renal echotexture is within lorena l limits bilaterally without hydronephrosis, contour deforming mass or renal stone. Right kidney jamila ures 7.7 cm. Left kidney measures 9.3 cm. Visualized aspects of the aorta and IVC are within normal limits. Portal vein is patent. No sonograph ic Joyner's sign indicated by the technologist. IMPRESSION: 1: Hepatic steatosis 2: Status post cholecystectomy with expected prominence of the common duct. Reviewed, dictated and finalized at location B. PULLER
== END ==
PROVIDERS: PCP Nurse Practitioner Family; Visit Provider Nurse Practitioner Family
DX: N64.4 Mastodynia (principal); M51.36 Other intervertebral disc degeneration, lumbar region; M47.894 Other spondylosis, thoracic region; M41.9 Scoliosis, unspecified; K76.0 Fatty (change of) liver, not elsewhere classified; Z90.49 Acquired absence of other specified parts of digestive tract
CPT/HCPCS: 72070; 72100; 76700; 77062; 77066; G0279

== ENCOUNTER → 2021-09-06 01:10 | Outpatient (CLI) | payer OTHER, SELFPAY ==
[2021-09-07 13:55] LABS: SARS-CoV-2 RNA PCR Negative
== END ==
PROVIDERS: PCP Nurse Practitioner Family; Visit Provider Nurse Practitioner Family
DX: R68.89 Other general symptoms and signs (principal); Z20.822 Contact with and (suspected) exposure to COVID-19
CPT/HCPCS: C9803; U0003; U0005

== ENCOUNTER 2021-09-16 10:06 | Outpatient (CLI) | payer OTHER, SELFPAY ==
--- NOTE | 2021-09-16 11:30 | NEURO_ITS ---
Impression: # Complains of left upper extremity numbness particularly left 4th and 5th fingers. # Left ulnar neuropathy. # No Carpal Tunnel Syndrome. # Normal needle/EMG exam. Nerve Conduction Studies Anti Sensory Summary Table Stim Site NR Peak (ms) P-T Amp (?V) Site1 Site2 Delta-P (ms) Dist (cm) Robi (m/s) Left Median Anti Sensory (2-3nd Digit) Wrist 3.2 63.4 Wrist 2-3nd Digit 3.2 14.0 44 Wrist 3.3 39.1 Wrist 2-3nd Digit 3.2 14.0 44 Right Median Anti Sensory (2-3nd Digit) Wrist 2.4 92.0 Wrist 2-3nd Digit 2.4 14.0 58 Wrist 2.4 70.3 Wrist 2-3nd Digit 2.4 14.0 58 Left Radial Anti Sensory (Base 1st Digit) Wrist 2.1 18.0 Wrist Base 1st Digit 2.1 0.0 Right Radial Anti Sensory (Base 1st Digit) Wrist 2.1 17.5 Wrist Base 1st Digit 2.1 0.0 Left Ulnar Anti Sensory (5th Digit) Wrist 2.3 44.6 Wrist 5th Digit 2.3 14.0 61 Right Ulnar Anti Sensory (5th Digit) Wrist 2.1 56.5 Wrist 5th Digit 2.1 14.0 67 Motor Summary Table Stim Site NR Onset (ms) O-P Amp (mV) Site1 Site2 Delta-0 (ms) Dist (cm) Robi (m/s) Left Median Motor (Abd Poll Brev) Wrist 3.7 1.5 Elbow Wrist 4.8 27.0 56 Elbow 8.5 2.7 Right Median Motor (Abd Poll Brev) Wrist 2.8 2.3 Elbow Wrist 4.4 24.0 55 Elbow 7.2 1.5 Left Ulnar Motor (Abd Dig Minimi) Wrist 2.7 5.7 A Elbow Wrist 5.7 28.0 49 A Elbow 8.4 4.8 B Elbow Wrist 4.3 25.0 58 B Elbow 7.0 8.3 Right Ulnar Motor (Abd Dig Minimi) Wrist 2.3 6.9 A Elbow Wrist 4.4 25.0 57 A Elbow 6.7 7.5 F Wave Studies NR F-Lat (ms) L-R F-Lat (ms) Left Median (Mrkrs) (Abd Poll Brev) 27.33 0.16 Right Median (Mrkrs) (Abd Poll Brev) 27.17 0.16 Left Ulnar (Mrkrs) (Abd Dig Min) 28.95 1.03 Right Ulnar (Mrkrs) (Abd Dig Min) 27.91 1.03 EMG Side Muscle Nerve Root Ins Act Fibs Amp Dur Recrt Comment Right 1stDorInt Ulnar C8-T1 Nml Nml Nml Nml Nml Right Ext Indicis Radial (Post Int) C7-8 Nml Nml Nml Nml Nml Right Ext Digitorum Radial (Post Int) C7-8 Nml Nml Nml Nml Nml Right BrachioRad Radial C5-6 Nml Nml Nml Nml Nml Right PronatorTeres Median C6-7 Nml Nml Nml Nml Nml Right Abd Poll Brev Median C8-T1 Nml Nml Nml Nml Nml Left 1stDorInt Ulnar C8-T1 Nml Nml Nml Nml Nml Left Ext Indicis Radial (Post Int) C7-8 Nml Nml Nml Nml Nml Left Ext Digitorum Radial (Post Int) C7-8 Nml Nml Nml Nml Nml Left BrachioRad Radial C5-6 Nml Nml Nml Nml Nml Left PronatorTeres Median C6-7 Nml Nml Nml Nml Nml Left Abd Poll Brev Median C8-T1 Nml Nml Nml Nml Nml MTDD
== END 2021-09-16 10:07 | disposition home or self-care (01) ==
LOC: ANHNEURO 10:08
PROVIDERS: PCP Nurse Practitioner Family; Visit Provider Nurse Practitioner Family
DX: R20.2 Paresthesia of skin (principal); G56.22 Lesion of ulnar nerve, left upper limb
CPT/HCPCS: 95886; 95911

== ENCOUNTER 2022-03-05 17:05 | Emergency (ER) | payer MEDICARE, SELFPAY ==
[2022-03-05 17:08] VITALS: BP 152/82; PULSE 69; RESP 18; TEMP 36.5; O2SAT 97
--- NOTE | 2022-03-05 17:32 | ED.BACK ---
HPI - Back Pain/Injury General Chief Complaint: Back Pain/Injury Stated Complaint: back pain Time Seen by Provider: 03/05/22 17:13 Source: patient History of Present Illness HPI Narrative: Patient presents with low back pain. Reports a history of degenerative disc disease has had intermittent back pain but this episode is more severe than usual. Her pain has been present for approximately 1 week achy constant no radiation worse with utilizing her back. She saw her primary care doctor got a shot of Toradol with some relief of her symptoms however pain is returned so she wanted to come to the ER for further evaluation. She denies any focal numbness or weakness denies any bowel or bladder incontinence denies any recent spinal instrumentation. Reports she has previously seen a neurosurgeon for her back pain and was told there is anything that can be done to help her pain. She has previously attempted muscle relaxers and is currently on pregabalin. Reports she was just sitting there when her pain started she denies any trauma or injuries to the area. She denies any major change in weight history of malignancy IV drug use and recent spinal instrumentation. Related Data Allergies Allergy/AdvReac Type Severity Reaction Status Date / Time adhesive Allergy Unknown Unknown Verified 03/01/22 12:58 ciprofloxacin Allergy Unknown Unknown Verified 03/01/22 12:58 clarithromycin Allergy Unknown Unknown Verified 03/01/22 12:58 gabapentin Allergy Unknown Unknown Verified 03/01/22 12:58 metformin Allergy Unknown diarrhea Verified 03/01/22 12:58 neomycin Allergy Unknown Itching Verified 03/01/22 12:58 oseltamivir Allergy Unknown Unknown Verified 03/01/22 12:58 Penicillins Allergy Unknown Unknown Verified 03/01/22 12:58 Sulfa (Sulfonamide Allergy Unknown Unknown Verified 03/01/22 12:58 Antibiotics) Review of Systems Review of Systems: CONSTITUTIONAL: Denies fever, chills, or sweats. EYES: Denies visual changes, redness, or discharge. ENT: Denies rhinorrhea, congestion, sore throat, or otalgia. CARDIOVASCULAR: Denies chest pain, palpitations, or edema. RESPIRATORY: Denies cough or dyspnea. GASTROINTESTINAL: Denies abdominal pain, nausea, vomiting, or diarrhea. GENITOURINARY: Denies dysuria or hematuria. SKIN: Denies rash or itching. MUSCULOSKELETAL: Denies back pain, joint pain, or myalgia. NEUROLOGIC: Denies headache, numbness, dizziness, or weakness. PSYCHIATRIC: Denies anxiety or depression. All systems reviewed & are unremarkable except as noted in HPI and below PMFSH Past Medical History Medical History Allergic dermatitis Asthma Basal cell carcinoma BMI greater than 40 Chronic diarrhea Chronic pain disorder Degenerative disc disease Depression Diabetes 1.5, managed as type 2 Essential (primary) hypertension Fibromyalgia Generalized anxiety disorder GERD without esophagitis Hepatic steatosis Hyperlipemia, mixed Hypothyroidism Irritable bowel syndrome with diarrhea Lumbar back pain with radiculopathy affecting right lower extremity Lumbar disc disease Morbid (severe) obesity due to excess calories Morbid obesity Nodule of right lung Obesity, unspecified Obstructive sleep apnea (adult) (pediatric) Likely obstructive sleep apnea however patient has not have polysomnogram Other asthma Restless leg syndrome Right arm numbness Right rotator cuff tendinitis RLS (restless legs syndrome) Tinea pedis of both feet Type 2 diabetes mellitus with diabetic neuropathy Type 2 diabetes mellitus with other specified complication Ulnar neuropathy at elbow Urinary incontinence in female Surgical History Surgical History H/O cervical spine surgery History of appendectomy History of carpal tunnel release (~1996) History of cholecystectomy (~1989) History of discectomy (~2004) Cervical History of lithotripsy (~2001) History of total hysterectom
[2022-03-05] MEDS: KETOROLAC 30 MG/ML VIAL (*BKC) IM (17:35)
== END 2022-03-05 17:44 | disposition home or self-care (01) ==
PROVIDERS: Emergency Provider Emergency Medicine; PCP Nurse Practitioner Family
DX: M54.50 Low back pain, unspecified (principal); E78.2 Mixed hyperlipidemia; E03.9 Hypothyroidism, unspecified; E11.9 Type 2 diabetes mellitus without complications; I10 Essential (primary) hypertension
CPT/HCPCS: 96372; 99283; J1885

== ENCOUNTER 2022-03-16 10:53 | Outpatient (CLI) | payer MEDICARE, SELFPAY ==
--- NOTE | ~2022-03-16 | CT_ITS ---
EXAMINATION: CT diagnostic chest wo con DATE: 03/16/2022 11:17 INDICATION: Solitary pulmonary nodule TECHNIQUE: Computed tomography (CT) of the chest was performed without intravenous contrast. Automate d exposure control and iterative reconstruction technique were employed. Exam dose: 323.95 mGy-cm to israel exam DLP. COMPARISON: 07/29/2020 CT chest FINDINGS: There is a stable posterior right upper lobe mass measuring approximately 5 x 7 mm, unchang ed since 07/29/2024 02/28/2014, consistent with benign process. No other pulmonary mass lesion is detected. There is mild discoid atelectasis or scarring in the right upper lobe, middle lobe, lingula and lower lobes and mild bilateral dependent lower lobe atelectasis. Otherwise no pulmonary infiltrate or consolidation. Normal heart size. No pericardial or pleural effusion. No thoracic aortic aneurysm or dissection. No hilar or mediastinal mass lesion or lymphadenopathy. Probable cholecystectomy clip is noted on the lowermost image. Included portions of the adrenal gland s are normal. Status post lower anterior cervical spine surgical fusion. No suspicious osteolytic or osteoblastic lesions. IMPRESSION: Long-term stable 5 x 7 mm posterior segment right upper lobe nodule, not significant kathrine nge since 2013, consistent with benign process Scattered areas of mild discoid atelectasis or scarring of both lungs Reviewed, dictated and finalized at Location A. Reviewed, dictated and finalized at location A. IMPRESSION: Long-term stable 5 x 7 mm posterior segment right upper lobe nodul e, not significant change since 2013, consistent with benign process Scattered areas of mild discoid atelectasis or scarring of both lungs
== END 2022-03-16 10:54 ==
PROVIDERS: PCP Nurse Practitioner Family; Visit Provider Nurse Practitioner Family
DX: R91.1 Solitary pulmonary nodule (principal); Z98.1 Arthrodesis status
CPT/HCPCS: 71250

== ENCOUNTER 2022-03-18 13:15 | Outpatient (CLI) | payer MEDICARE, SELFPAY ==
--- NOTE | ~2022-03-18 | MR_ITS ---
EXAMINATION: MR lumbar spine wo con DATE: 03/18/2022 14:18 INDICATION: Low back pain. TECHNIQUE: Magnetic resonance imaging (MRI) of the lumbar spine was performed without intravenous con trast. Sequences included sagittal T2-weighted FSE, sagittal T2-weighted FS FSE, sagittal T1-weighted FSE, and axial T2-weighted FSE. COMPARISON: Lumbar spine MRI 07/19/2018 FINDINGS: There is 12 degrees levoscoliosis of lumbar spine. Vertebral body heights are normal. There are hemangiomas in L2 and L3 vertebral bodies. There is mildly decreased disc height at L4-L5. The d istal spinal cord signal intensity is normal. The conus medullaris is at L1. The following disc level s are specifically discussed: L1-L2: There is a right central protrusion. There is no facet joint osteoarthritis. There is no neura l foraminal stenosis. There is mild central canal stenosis. L2-L3: The disc is mildly bulging. There is mild bilateral facet joint osteoarthritis. There is mild left neural foraminal stenosis. There is mild central canal stenosis. L3-L4: The disc is bulging and has an annular fissure. There is severe bilateral facet joint osteoart hritis. There is mild bilateral neural foraminal stenosis. There is no central canal stenosis. L4-L5: The disc is bulging and has an annular fissure. There is severe right and moderate left facet joint osteoarthritis. There is mild bilateral neural foraminal stenosis. There is mild central canal stenosis. L5-S1: The disc does not extend beyond the endplate margin. There is severe bilateral facet joint ost eoarthritis. There is mild bilateral neural foraminal stenosis. There is no central canal stenosis. IMPRESSION: 1. Mild lumbar spondylosis, stable from 07/19/2018. Reviewed, dictated and finalized at location A.
== END 2022-03-18 13:16 ==
LOC: MICIMG 13:17
PROVIDERS: PCP Nurse Practitioner Family; Visit Provider Nurse Practitioner Family
DX: M47.896 Other spondylosis, lumbar region (principal)
CPT/HCPCS: 72148

== ENCOUNTER 2022-05-31 17:57 | Emergency (ER) | payer OTHER, SELFPAY ==
[2022-05-31] VITALS (13 sets, daily range): BP systolic 115–184; BP diastolic 55–84; PULSE 64–83; RESP 12–18; TEMP 36.2; O2SAT 95–100
--- NOTE | ~2022-05-31 | XR_ITS ---
EXAMINATION: XR chest 1V portable DATE: 05/31/2022 19:22 INDICATION: Chest pain and shortness of breath TECHNIQUE: frontal view of the chest was obtained. COMPARISON: Chest CT dated 03/16/2022 FINDINGS: Opacities at the left lower lung zone extending between the apex of the heart and the costophrenic an gle which corresponds to a prominent left paracardial fat pad and mild lingular atelectasis on prior CT. No other airspace opacities, pulmonary edema, pleural effusion or pneumothorax. The cardiomediast inal silhouette is normal. Anterior spinal fusion with anterior plate and screw fixation at C5-C7. IMPRESSION: 1. No acute cardiopulmonary disease. Reviewed, dictated and finalized at location A.
--- NOTE | 2022-05-31 18:00 | ECG_ITS ---
Measurements Intervals [place] Rate: 74 P: 41 MI: 131 QRS: -3 QRSD: 89 T: 52 QT: 381 QTc: 423 Interpretive Statements SINUS RHYTHM BORDERLINE R WAVE PROGRESSION, ANTERIOR LEADS INFERIOR INFARCT, AGE INDETERMINATE BORDERLINE ST-T WAVE ABNORMALITY- HIGH LATERAL LEADS ABNORMAL ECG NO PREVIOUS ECG AVAILABLE FOR COMPARISON Electronically Signed On 05-31-2022 21:53:51 CDT by Alvarez Nunes D.O.
[2022-05-31 18:21] LABS: Glucose Point of Care 321 mg/dl (65-105)
[2022-05-31 18:35] LABS: Basophils Absolute Auto 0.1 K/mm3 (0.0-0.1); Basophils Percent Auto 0.5 % (0.2-1.2); Eosinophils Absolute Auto 0.2 K/mm3 (0-0.3); Eosinophils Percent Auto 1.7 % (0-4.4); Hematocrit 44.8 % (37.0-47.0); Hemoglobin 13.9 g/dL (12.0-15.0); Immature Granulocyte Absolute 0.07 K/mm3 (0.00-0.031); Immature Granulocyte Percent A 0.7 % (0-0.5); Lymphocytes Percent Auto 35.8 % (18.3-44.2); Mean Corpuscular Hemoglobin 26.6 pg (26-34); Mean Corpuscular Volume 85.7 fl (80-100); Mean Platelet Volume 11.5 fl (7.4-10.4); Monocytes Absolute Auto 0.5 K/mm3 (0.1-0.6); Monocytes Percent Auto 4.9 % (2.6-8.5); Neutrophils Percent Auto 56.4 % (45.5-73.1); Platelet Count Result 227 k/mm3 (150-375); Red Blood Count 5.23 M/mm3 (4.2-5.4); Red Cell Distribution Width 14.7 % (11.5-14.5); White Blood Count 10.6 K/mm3 (4.5-10.0)
[2022-05-31 18:44] LABS: Appearance Urine Slightly Cloudy (Clear); Bilirubin Urine Negative (Negative); Blood Urine Negative (Negative); Color Urine Yellow (Yellow); Glucose Urine UA 3+ mg/dL (Negative); Ketones Urine Trace mg/dL (Negative); Leukocyte Esterase Ur Negative LEU/UL (Negative); Nitrate Urine Negative (Negative); Protein Urine Negative (Negative)
[2022-05-31 18:46] LABS: Prothrombin Time 13.2 Seconds (11.1-14.7)
[2022-05-31 18:47] LABS: Partial Thromboplastin Time 26.1 SECONDS (22.3-36.8)
[2022-05-31 18:51] LABS: Alanine Aminotransferase 15 U/L (6-35); Alkaline Phosphatase 102 U/L (38-126); Anion Gap 10 mmol/L (8-16); Aspartate Amino Transferase 15 U/L (14-36); Bilirubin,Total 0.3 mg/dL (0.2-1.3); Blood Urea Nitrogen 7 mg/dL (7-17); Carbon Dioxide 27 mmol/L (22-30); Chloride 103 mmol/L (98-107); Estimated CRCL calculation 53 ml/min; Estimated Glomerular Filt Rate 55; Glucose 315 mg/dL (65-110); Lipase 58 U/L (23-300); Potassium 3.4 mmol/L (3.4-5.0); Sodium 140 mmol/L (137-145)
[2022-05-31 18:55] LABS: Bacteria Urine Trace /hpf; Mucus Urine Rare /lpf; RBC Urine 0-2 /hpf (0-2); Squamous Epithelial Cell Urine Many /hpf (Few); WBC Urine 0-3 /hpf
[2022-05-31 18:56] LABS: Add Urine Microscopic? YES
[2022-05-31 18:59] LABS: Troponin I < 0.012 ng/mL (0.000-0.034)
--- NOTE | 2022-05-31 19:25 | ED.GENADULT ---
HPI - General Adult General Chief complaint: Chest Pain Stated complaint: cp, sob Time Seen by Provider: 05/31/22 19:00 History of Present Illness HPI narrative: 66-year-old female with history of type 2 diabetes presenting to the emergency department for evaluation of multiple days of not feeling right . Patient states she has had some intermittent nausea lightheaded and dizziness. Patient states she did have some chest pressure earlier but denies any current chest pressure. Patient has no prior history of GA. Patient did have a stress test approximately 5 to 6 years ago. Patient denies any sick contacts. Related Data Allergies Allergy/AdvReac Type Severity Reaction Status Date / Time adhesive Allergy Unknown Unknown Verified 05/31/22 19:13 ciprofloxacin Allergy Unknown Unknown Verified 05/31/22 19:13 clarithromycin Allergy Unknown Unknown Verified 05/31/22 19:13 gabapentin Allergy Unknown Unknown Verified 05/31/22 19:13 metformin Allergy Unknown diarrhea Verified 05/31/22 19:13 neomycin Allergy Unknown Itching Verified 05/31/22 19:13 oseltamivir Allergy Unknown Unknown Verified 05/31/22 19:13 Penicillins Allergy Unknown Unknown Verified 05/31/22 19:13 Sulfa (Sulfonamide Allergy Unknown Unknown Verified 05/31/22 19:13 Antibiotics) Review of Systems Review of Systems: CONSTITUTIONAL: Not feeling well EYES: Denies visual changes, redness, or discharge. ENT: Denies rhinorrhea, congestion, sore throat, or otalgia. CARDIOVASCULAR: See HPI RESPIRATORY: Denies cough or dyspnea. GASTROINTESTINAL: Some nausea but no vomiting GENITOURINARY: Denies dysuria or hematuria. SKIN: Denies rash or itching. MUSCULOSKELETAL: Denies back pain, joint pain, or myalgia. NEUROLOGIC: Denies headache, numbness, or weakness. PSYCHIATRIC: History of anxiety COUNTS INCLUDE 234 BEDS AT [facility] Past Medical History Medical History Allergic dermatitis Asthma Basal cell carcinoma BMI greater than 40 Chronic diarrhea Chronic pain disorder Degenerative disc disease Depression Diabetes 1.5, managed as type 2 Essential (primary) hypertension Fibromyalgia Generalized anxiety disorder GERD without esophagitis Hepatic steatosis Hyperlipemia, mixed Hypothyroidism Irritable bowel syndrome with diarrhea Lumbar back pain with radiculopathy affecting right lower extremity Lumbar disc disease Morbid (severe) obesity due to excess calories Morbid obesity Nodule of right lung Obesity, unspecified Obstructive sleep apnea (adult) (pediatric) Likely obstructive sleep apnea however patient has not have polysomnogram Other asthma Restless leg syndrome Right arm numbness Right rotator cuff tendinitis RLS (restless legs syndrome) Tinea pedis of both feet Type 2 diabetes mellitus with diabetic neuropathy Type 2 diabetes mellitus with other specified complication Ulnar neuropathy at elbow Urinary incontinence in female Surgical History Surgical History H/O cervical spine surgery History of appendectomy History of carpal tunnel release (~1996) History of cholecystectomy (~1989) History of discectomy (~2004) Cervical History of lithotripsy (~2001) History of total hysterectomy with bilateral salpingo-oophorectomy (BSO) (~1980) Hx of sinus surgery (~1997) Hx of tonsillectomy Family History Family History Father Hypertension Cerebrovascular accident Family history of suicide, Onset Age: 72 Mother Family history of malignant neoplasm Family history of primary malignant neoplasm of liver, Onset Age: 50 Grandparent Cerebrovascular accident Sibling Patient's brother is in good health Patient's sister is Other Diabetes mellitus Social History Social History Social History: She has been to her current for 18 years. S
[2022-05-31] MEDS: ASPIRIN 81 MG CHEWABLE TABLET 324 MG PO (19:30)
[2022-05-31 20:18] LABS: SARS-CoV-2 RNA PCR Negative
[2022-05-31 21:44] LABS: Troponin I < 0.012 ng/mL (0.000-0.034)
[2022-05-31] MEDS: SODIUM CHLORIDE 0.9% IV 1,000 ML 999 ML IV CONT (22:05)
[2022-05-31 23:21] LABS: Glucose Point of Care 99 mg/dl (65-105)
== END 2022-06-01 00:02 | disposition home or self-care (01) ==
PROVIDERS: General Practice; Emergency Provider Emergency Medicine; PCP Nurse Practitioner Family
DX: E13.65 Other specified diabetes mellitus with hyperglycemia (principal); R53.1 Weakness; Z20.822 Contact with and (suspected) exposure to COVID-19; E13.40 Other specified diabetes mellitus with diabetic neuropathy, unspecified; J45.998 Other asthma; E03.9 Hypothyroidism, unspecified; K21.9 Gastro-esophageal reflux disease without esophagitis; K58.0 Irritable bowel syndrome with diarrhea; G25.81 Restless legs syndrome; G89.4 Chronic pain syndrome; M79.7 Fibromyalgia; R07.89 Other chest pain; E66.01 Morbid (severe) obesity due to excess calories; Z68.41 Body mass index [BMI] 40.0-44.9, adult; Z90.710 Acquired absence of both cervix and uterus; Z90.722 Acquired absence of ovaries, bilateral; Z79.4 Long term (current) use of insulin; Z79.84 Long term (current) use of oral hypoglycemic drugs; Z79.899 Other long term (current) drug therapy; R94.31 Abnormal electrocardiogram [ECG] [EKG]
CPT/HCPCS: 36415; 71045; 80053; 81001; 82948; 83690; 84484; 85025; 85610; 85730; 93005; 96360; 96361; 99284; A9270; C9803; J7030; U0003; U0005

== ENCOUNTER 2022-06-27 13:02 | Observation (INO) | payer OTHER, SELFPAY ==
[2022-06-27] VITALS (25 sets, daily range): BP systolic 88–135; BP diastolic 39–68; PULSE 57–79; RESP 15–20; TEMP 36.2–36.6; O2SAT 91–100; BMI 46.5
--- NOTE | ~2022-06-27 | CT_ITS ---
EXAMINATION: CT brain wo con DATE: 06/28/2022 11:53 INDICATION: Weakness. Altered mental status with responsive changes. Hypertension. TECHNIQUE: Computed tomography (CT) of the head was performed without intravenous contrast. Sagittal and coronal reconstructions were performed. The mA was adjusted according to patient size. Iterative reconstruction technique was employed. The dose-length product was 605.33 mGy-cm. COMPARISON: 02/20/2016 FINDINGS: No acute intracranial hemorrhage, acute infarction or abnormal extra axial fluid collection. Small ol d lacunar infarct at the left basal ganglia, new since the prior study. There is minimal scattered wh ite matter hypoattenuation consistent with chronic small vessel ischemic disease. Ventricles are nor mal and symmetric. No mass/mass effect. Changes of bilateral intraocular lens replacement. The orbits and mastoid air cells are normal. Mild mucoperiosteal thickening the bilateral ethmoid sinuses. IMPRESSION: 1. No acute intracranial process. 2. Small old lacunar infarct at the left basal ganglia and minimal scattered white matter hypoattenua tion consistent with chronic small vessel ischemic disease. Reviewed, dictated and finalized at location A. IMPRESSION: 1. No acute intracranial process. 2. Small old lacunar infarct at the left basal ganglia and minimal scattered wh ite matter hypoattenuation consistent with chronic small vessel ischemic disecrystal johnson
--- NOTE | ~2022-06-27 | CT_ITS ---
EXAMINATION: CT abdomen pelvis w con DATE: 06/27/2022 18:00 INDICATION: Generalized abdominal pain. Diarrhea. Weakness. TECHNIQUE: Computed tomography (CT) of the abdomen and pelvis was performed with 100 CC Omnipaque 350 intravenous contrast. Automated exposure control and iterative reconstruction technique were employe d. Exam dose: 1490.46 mGy-cm total exam DLP. COMPARISON: 08/04/2021 abdominal ultrasound complete examination 02/07/2021 CT abdomen pelvis FINDINGS: There is minimal dependent atelectasis in the mid and lower lung zones. Normal heart size. No pericardial or pleural effusion. There is diffuse hepatic steatosis. No hepatic, splenic, pancreatic or adrenal space-occupying mass l esion. Status post cholecystectomy with chronic stable mild bile duct prominence. Normal pancreatic duct yaneth iber. Mild bilateral renal scarring. No renal space occupying mass lesion is detected. Resolution of indete rminate 2.7 cm mid lateral left renal mass and adjacent fascial thickening since 02/07/2021. Line there is atherosclerotic calcification of the abdominal aorta and iliac arteries. No abdominal aortic aneu rysm. No intraperitoneal or retroperitoneal or pelvic mass lesion or adenopathy or ascites. Mild colonic diverticulosis; no CT evidence of diverticulitis. No bowel obstruction or intraperitonea l free air. Small fat-containing umbilical hernia. The urinary bladder is unremarkable. Status post hysterectomy. There are several nonobstructing right renal calculi, measuring approximately 4 mm or smaller. No ure teral calculus or hydroureteronephrosis. No suspicious osteolytic or osteoblastic lesions. IMPRESSION: Hepatic steatosis Status post cholecystectomy Right nonobstructive nephrolithiasis Bilateral renal scarring Mild colonic diverticulosis Reviewed, dictated and finalized at Location [facility]. Reviewed, dictated and finalized at location A.
--- NOTE | ~2022-06-27 | XR_ITS ---
EXAMINATION: XR chest 2V DATE: 06/27/2022 14:27 INDICATION: Shortness of breath. Dizziness. TECHNIQUE: Frontal and lateral views of the chest were obtained. COMPARISON: Chest single view 03/30/2022 FINDINGS: There is no pneumonia, pleural effusion, or pneumothorax. The heart size is normal. There a re changes of anterior fusion procedure in cervical spine. There are surgical clips in the abdomen. IMPRESSION: 1. No acute cardiopulmonary disease. Reviewed, dictated and finalized at location A.
--- NOTE | 2022-06-27 13:08 | ECG_ITS ---
Measurements Intervals [place] Rate: 59 P: 41 DE: 148 QRS: -6 QRSD: 82 T: 90 QT: 414 QTc: 412 Interpretive Statements SINUS BRADYCARDIA NONSPECIFIC T-WAVE ABNORMALITY LOW-VOLTAGE QRS IN PRECORDIAL LEADS CANNOT RULE OUT INFERIOR INFARCT, AGE INDETERMINATE ABNORMAL ECG COMPARED TO ECG 05/31/2022 18:13:41 HEART RATE HAS DECREASED Electronically Signed On 06-27-2022 16:25:10 CDT by Clark Gutiérrez M.D.
--- NOTE | 2022-06-27 13:30 | ED.GENADULT ---
HPI - General Adult General Chief complaint: Shortness of Breath/Dyspnea Stated complaint: dizzy, weakness, ear pain Time Seen by Provider: 06/27/22 13:09 History of Present Illness HPI narrative: this is a 66-year-old female presenting ED with a chief complaint of fatigue. Patient says that starting yesterday she has been feeling dizzy and weak. She has had multiple episodes of explosive diarrhea. She has also been nauseous. She reports being short of breath and is was 90% on room air. EMS was called she was brought to hospital. Patient denies chest pain, abdominal pain, fever or chills. Patient is vaccinated against COVID. patient has not gotten a flu vaccine this year. Related Data Allergies Allergy/AdvReac Type Severity Reaction Status Date / Time adhesive Allergy Unknown Unknown Verified 06/27/22 13:11 ciprofloxacin Allergy Unknown Unknown Verified 06/27/22 13:11 clarithromycin Allergy Unknown Unknown Verified 06/27/22 13:11 gabapentin Allergy Unknown Unknown Verified 06/27/22 13:11 metformin Allergy Unknown diarrhea Verified 06/27/22 13:11 neomycin Allergy Unknown Itching Verified 06/27/22 13:11 oseltamivir Allergy Unknown Unknown Verified 06/27/22 13:11 Penicillins Allergy Unknown Unknown Verified 06/27/22 13:11 Sulfa (Sulfonamide Allergy Unknown Unknown Verified 06/27/22 13:11 Antibiotics) [facility] Past Medical History Medical History Allergic dermatitis Asthma Basal cell carcinoma BMI greater than 40 Chronic diarrhea Chronic pain disorder Degenerative disc disease Depression Diabetes 1.5, managed as type 2 Essential (primary) hypertension Fibromyalgia Generalized anxiety disorder GERD without esophagitis Hepatic steatosis Hyperlipemia, mixed Hypothyroidism Irritable bowel syndrome with diarrhea Lumbar back pain with radiculopathy affecting right lower extremity Lumbar disc disease Morbid (severe) obesity due to excess calories Morbid obesity Nodule of right lung Obesity, unspecified Obstructive sleep apnea (adult) (pediatric) Likely obstructive sleep apnea however patient has not have polysomnogram Other asthma Restless leg syndrome Right arm numbness Right rotator cuff tendinitis RLS (restless legs syndrome) Tinea pedis of both feet Type 2 diabetes mellitus with diabetic neuropathy Type 2 diabetes mellitus with other specified complication Ulnar neuropathy at elbow Urinary incontinence in female Surgical History Surgical History H/O cervical spine surgery History of appendectomy History of carpal tunnel release (~1996) History of cholecystectomy (~1989) History of discectomy (~2004) Cervical History of lithotripsy (~2001) History of total hysterectomy with bilateral salpingo-oophorectomy (BSO) (~1980) Hx of sinus surgery (~1997) Hx of tonsillectomy Family History Family History Father Hypertension Cerebrovascular accident Family history of suicide, Onset Age: 72 Mother Family history of malignant neoplasm Family history of primary malignant neoplasm of liver, Onset Age: 50 Grandparent Cerebrovascular accident Sibling Patient's brother is in good health Patient's sister is Other Diabetes mellitus Social History Social History Social History: She has been to her current for 18 years. 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 She has 2 daughters and 2 stepdaughters. She recently lost 1 of her stepdaughters. Primary care provider: Carlos Ivan NP Code status: Full code Surrogate decision maker: Smoking status: Never smoker Second hand tobacco smoke exposure: Yes Alcohol intake: current Alcohol use details: [place]
[2022-06-27] MEDS: SODIUM CHLORIDE 0.9% IV 2,000 ML 999 ML IV CONT (13:41)
[2022-06-27 14:01] LABS: Basophils Absolute Auto 0.1 K/mm3 (0.0-0.1); Basophils Percent Auto 0.8 % (0.2-1.2); Eosinophils Absolute Auto 0.2 K/mm3 (0-0.3); Eosinophils Percent Auto 1.7 % (0-4.4); Hematocrit 42.2 % (37.0-47.0); Hemoglobin 13.4 g/dL (12.0-15.0); Immature Granulocyte Absolute 0.04 K/mm3 (0.00-0.031); Immature Granulocyte Percent A 0.4 % (0-0.5); Immature Platelet Fraction Pct 15.7 % (0.9-11.2); Lymphocytes Absolute Auto 3.33 K/mm3 (0.9-3.2); Lymphocytes Percent Auto 33.6 % (18.3-44.2); Mean Corpuscular HGB Conc 31.8 g/dl (32-36); Mean Corpuscular Volume 85.1 fl (80-100); Mean Platelet Volume 13.2 fl (7.4-10.4); Monocytes Absolute Auto 0.7 K/mm3 (0.1-0.6); Monocytes Percent Auto 6.6 % (2.6-8.5); Neutrophils Absolute Auto 5.6 K/mm3 (1.3-6.7); Neutrophils Percent Auto 56.9 % (45.5-73.1); Platelet Count Result 200 k/mm3 (150-375); Red Blood Count 4.96 M/mm3 (4.2-5.4); Red Cell Distribution Width 14.1 % (11.5-14.5); White Blood Count 9.9 K/mm3 (4.5-10.0)
[2022-06-27 14:10] LABS: INR 1.1; Prothrombin Time 13.5 Seconds (11.1-14.7)
[2022-06-27 14:11] LABS: Partial Thromboplastin Time 21.1 SECONDS (22.3-36.8)
[2022-06-27 14:19] LABS: Add Urine Microscopic? YES; Appearance Urine Cloudy (Clear); Bacteria Urine Trace /hpf; Bilirubin Urine Negative (Negative); Blood Urine Negative (Negative); Color Urine Amber (Yellow); Glucose Urine UA 3+ mg/dL (Negative); Ketones Urine Negative (Negative); Leukocyte Esterase Ur Negative LEU/UL (Negative); Mucus Urine Rare /lpf; Nitrate Urine Negative (Negative); Protein Urine Negative (Negative); RBC Urine 0-2 /hpf (0-2); Squamous Epithelial Cell Urine Many /hpf (Few); Urobilinogen Urine Negative mg/dL (<2.0); WBC Urine 0-3 /hpf
[2022-06-27 14:37] LABS: Influenza A QL RT-PCR Negative (Negative); Influenza B QL RT-PCR Negative (Negative); SARS-CoV-2 RNA PCR Negative
[2022-06-27 14:54] LABS: Alanine Aminotransferase 23 U/L (6-35); Albumin Level 3.8 g/dL (3.5-5.1); Alkaline Phosphatase 94 U/L (38-126); Anion Gap 11 mmol/L (8-16); Aspartate Amino Transferase 42 U/L (14-36); Bilirubin,Total 0.8 mg/dL (0.2-1.3); Blood Urea Nitrogen 10 mg/dL (7-17); Calcium 8.5 mg/dL (8.4-10.2); Carbon Dioxide 20 mmol/L (22-30); Chloride 105 mmol/L (98-107); Estimated CRCL calculation 54 ml/min; Estimated Glomerular Filt Rate 55; Glucose 163 mg/dL (65-110); Lipase 431 U/L (23-300); Potassium 3.6 mmol/L (3.4-5.0); Sodium 136 mmol/L (137-145)
[2022-06-27 15:06] LABS: Troponin I < 0.012 ng/mL (0.000-0.034)
[2022-06-27] MEDS: DOXYCYCLINE 100 MG/NS 100 ML 100 MG/100 ML BAG IVPB (16:13)
[2022-06-27] MEDS: SODIUM CHLORIDE 0.9% IV 1,000 ML 999 ML IV CONT (16:30)
[2022-06-27 16:33] LABS: Troponin I < 0.012 ng/mL (0.000-0.034)
--- NOTE | 2022-06-27 17:25 | PC.NURSE ---
Ambulatory to bathroom without difficulty.
--- NOTE | 2022-06-27 18:00 | PM.IMHP ---
H&P: HPI History of Present Illness Date/Time: 06/27/22 18:00 <Juany Palencia PA-C - Last Filed: 06/28/22 00:11> Chief Complaint: Weakness. <Juany Palencia PA-C - Last Filed: 06/28/22 00:11> Narrative: This is a 66-year-old female with hypertension, hyperlipidemia, diabetes, hypothyroidism, history of pancreatitis, and other comorbidities who presented to the emergency department for evaluation of weakness. She reports loose stools the last several days with nausea and decreased appetite which has caused her to feel more weak than usual. This morning while on the phone with her daughter she had difficulties staying awake however with further questioning it sounds as though this is a chronic finding for the patient. They have suspected that she has sleep apnea for quite some time though with the COVID pandemic she was never able to have a formal sleep study done. It is not unusual for her to fall asleep in mid sentence and she frequently snores at night with occasional paroxysmal nocturnal dyspnea. She tells me that she is always exhausted and that her thinking is a bit foggy. In any event, her vital signs were stable on arrival to the ER. Aside from a mild bump in AST and lipase, 42 and 431 respectively, her labs were unremarkable. CT scan of the abdomen and pelvis showed no acute findings and her chest x-ray was also unremarkable. Due to continued diarrhea and weakness she is being admitted overnight for cautious IV fluid rehydration and PT/OT consult. At the time my evaluation she has no specific complaints and she denies chills, sweats, fever, sinus congestion, sore throat, cough, vomiting, melena, hematochezia, dysuria, focal weakness, paresthesias, vertigo, dysarthria, dysphagia, and facial asymmetry. <Juany Palencia PA-C - Last Filed: 06/28/22 00:11> Review of Systems Review of Systems: Twelve systems were reviewed and are negative except for as per HPI. <Juany Palencia PA-C - Last Filed: 06/28/22 00:11> FORMERLY [facility] Past Medical History Medical History: Medical History Allergic dermatitis Asthma Basal cell carcinoma BMI greater than 40 Chronic diarrhea Chronic pain disorder Degenerative disc disease Depression Diabetes 1.5, managed as type 2 Essential (primary) hypertension Fibromyalgia Generalized anxiety disorder GERD without esophagitis Hepatic steatosis History of bruising easily History of stress test Hyperlipemia, mixed Hypothyroidism Irritable bowel syndrome with diarrhea Lumbar back pain with radiculopathy affecting right lower extremity Lumbar disc disease Morbid (severe) obesity due to excess calories Morbid obesity Nodule of right lung Obesity, unspecified Obstructive sleep apnea (adult) (pediatric) Likely obstructive sleep apnea however patient has not have polysomnogram Other asthma Restless leg syndrome Right arm numbness Right rotator cuff tendinitis RLS (restless legs syndrome) Suspected sleep apnea Tinea pedis of both feet Type 2 diabetes mellitus with diabetic neuropathy Type 2 diabetes mellitus with other specified complication Ulnar neuropathy at elbow Urinary incontinence in female <Juany Palencia PA-C - Last Filed: 06/28/22 00:11> Surgical History Surgical History: Surgical History H/O cervical spine surgery H/O colonoscopy with polypectomy History of appendectomy (~1980) History of carpal tunnel release (~1996) History of cholecystectomy (~1995) History of dental surgery History of discectomy (~2004) Cervical History of lithotripsy (~2001) History of total hysterectomy with bilateral salpingo-oophorectomy (BSO) (~1980) Hx of sinus surgery (~1997) Hx of tonsillectomy (~1961) <Juany Palencia PA-C - Last Filed: 06/28/22 00:11> Family History Family History: Family History (Reviewed 07/11/22 @ 11:05 by Kezia Mustafa
--- NOTE | 2022-06-27 18:41 | ADMGEN ---
This patient, Inna Craig, was admitted to Medical Room 250-01. Patient/family oriented to hospital policies and general routines including ID bracelet, bed and alarms, visiting hours, pain management, procedures, bathroom and other care routines, personal items, smoking policy, room service/diet, and visiting hours. Information on how to activate the Rapid Response Team has been discussed. Patient/Family are encouraged to report perceived risks to care and to ask questions if they do not understand what they are told or what they should do.
[2022-06-27 19:44] LABS: Troponin I < 0.012 ng/mL (0.000-0.034)
[2022-06-27 21:51] LABS: Glucose Point of Care 236 mg/dl (65-105)
[2022-06-27] MEDS: cycloSPORINE 0.4 ML OPHTH SOLUTION 1 DROP EACH EYE (22:59)
[2022-06-27] MEDS: PREGABALIN (*CRX) 75 MG CAPSULE PO (22:59)
[2022-06-27] MEDS: rOPINIRole HCL 0.5 MG TABLET PO (22:59)
--- NOTE | 2022-06-28 00:08 | ECHO_ITS ---
Patient Info Name: Inna Craig Age: 66 years : 1955 Gender: Female Ht: 60 in Wt: 238 lbs BSA: 2.21 m2 HR: 75 bpm BP: 124 / 70 mmHg Technical Quality: Fair Exam Date: 06/28/2022 11:20 AM Exam Location: [facility] Patient Status: Outpatient Admit Date: 06/27/2022 Staff Ordering Physician: Juany Palencia PA-C Tube Winder: Ashley Hampton RDCS Attending Provider: Ninoska Segura MD Referring Physician: Talha JIANG; Exam Type: CA echo doppler color flow Study Info Indications R01.1 - Cardiac murmur, unspecified R53.1 - Weakness Complete two-dimensional, color flow and Doppler transthoracic echocardiogram is performed. Summary 1. Complete two-dimensional, color flow and Doppler transthoracic echocardiogram is performed. 2. Left ventricular chamber dimension is normal. 3. Left ventricular systolic function is normal, estimated at 60-65%. 4. There is mildly increased left ventricular wall thickness. 5. The left ventricular diastolic function is grade I diastolic dysfunction. 6. E/e' 12 is mildly elevated. 7. Global longitudinal strain is abnormal at -14.7%. 8. There is mild aortic valve sclerosis. 9. There is trace tricuspid valve regurgitation. 10. Mild pulmonary hypertension, estimated pulmonary arterial systolic pressure is 45 mmHg. Left Ventricle E/e' 12 is mildly elevated. Global longitudinal strain is abnormal at -14.7%. Left ventricular chamber dimension is normal. Left ventricular systolic function is normal, estimated at 60-65%. There is mildly increased left ventricular wall thickness. The left ventricular diastolic function is grade I diastolic dysfunction. Right Ventricle Right ventricular systolic function is normal and with normal TAPSE 2.8 cm. Right ventricular chamber dimension is normal. Left Atria Left atrial chamber dimension is normal. Right Atria Right atrial chamber dimension is normal. Aortic Valve The aortic valve is trileaflet. There is mild aortic valve sclerosis. There is no aortic valve stenosis. There is no aortic valve regurgitation. Pulmonic Valve There is no pulmonic regurgitation. Mitral Valve There is no mitral valve stenosis. There is no mitral valve regurgitation. Tricuspid Valve There is trace tricuspid valve regurgitation. Mild pulmonary hypertension, estimated pulmonary arterial systolic pressure is 45 mmHg. Pericardium/Pleural There is no pericardial effusion. Inferior Vena Cava Normal inferior vena cava with >50% collapse upon inspiration consistent with normal right atrial pressure, 5 mmHg. Aorta The aortic root size at the sinus of Valsalva is normal. Left Ventricular Outflow Tract Name Value Normal LVOT 2D LVOT Diameter 1.9 cm LVOT Doppler LVOT Peak Gradient 8 mmHg LVOT Mean Gradient 4 mmHg LVOT VTI 29 cm LVOT VTI/AV VTI Ratio 0.8 LVOT Stroke Volume 80 ml LVOT CO 6.0 l/min LVOT CI
[2022-06-28] MEDS: SODIUM CHLORIDE 0.9% IV 1,000 ML 100 ML IV CONT (03:18)
[2022-06-28 06:22] LABS: Hematocrit 38.4 % (37.0-47.0); Hemoglobin 12.2 g/dL (12.0-15.0); Mean Corpuscular HGB Conc 31.8 g/dl (32-36); Mean Corpuscular Hemoglobin 26.5 pg (26-34); Mean Corpuscular Volume 83.3 fl (80-100); Mean Platelet Volume 11.8 fl (7.4-10.4); Platelet Count Result 159 k/mm3 (150-375); Red Blood Count 4.61 M/mm3 (4.2-5.4); Red Cell Distribution Width 14.2 % (11.5-14.5); White Blood Count 9.1 K/mm3 (4.5-10.0)
[2022-06-28] MEDS: LEVOTHYROXINE SODIUM 75 MCG TABLET PO (06:29)
[2022-06-28 06:32] LABS: Alanine Aminotransferase 18 U/L (6-35); Albumin Level 3.6 g/dL (3.5-5.1); Alkaline Phosphatase 82 U/L (38-126); Anion Gap 10 mmol/L (8-16); Aspartate Amino Transferase 22 U/L (14-36); Bilirubin,Total 0.3 mg/dL (0.2-1.3); Blood Urea Nitrogen 8 mg/dL (7-17); Calcium 8.3 mg/dL (8.4-10.2); Carbon Dioxide 25 mmol/L (22-30); Chloride 106 mmol/L (98-107); Estimated CRCL calculation 54 ml/min; Estimated Glomerular Filt Rate 55; Glucose 154 mg/dL (65-110); Lipase 56 U/L (23-300); Magnesium 1.6 mg/dL (1.6-2.3); Potassium 3.5 mmol/L (3.4-5.0); Sodium 141 mmol/L (137-145)
[2022-06-28] MEDS: MAGNESIUM SULF 4 GM/WATER100ML 4 GM/100 ML BAG IVPB (06:49)
[2022-06-28 06:50] VITALS: BP 114/42; BP 98/61; PULSE 101; PULSE 73; RESP 16; RESP 18; TEMP 36.1; TEMP 36.4; O2SAT 94; O2SAT 95
[2022-06-28 06:55] LABS: Hemoglobin A1C 8.3 % (<5.7)
[2022-06-28 08:00] VITALS: BP 131/45; PULSE 64
[2022-06-28 08:04] VITALS: BP 142/62; PULSE 66
[2022-06-28 08:08] VITALS: BP 122/66; PULSE 71
[2022-06-28 08:09] LABS: Free T4 Free Thyroxine Reflex 1.26 ng/dL (0.78-2.19)
--- NOTE | 2022-06-28 08:15 | PM.IMPN ---
Progress Note: A&P Assessment and Plan (1) Diarrhea: Code(s): R19.7 - Diarrhea, unspecified Status: Acute Assessment and Plan: Chronic, however worse then normal Stool studies pending Could be contributing to her dehydration GI consult for further recommendations (2) Generalized weakness: Code(s): R53.1 - Weakness Status: Acute Assessment and Plan: Reported increased weakness Daughter reported noticeable responsive changes Could be related to infection, however, no indication at this time PT/OT eval Seems to be resolved (3) Hypertension: Code(s): I10 - Essential (primary) hypertension Status: Acute Assessment and Plan: Current BP is 124/40 Hold atenolol as her blood pressure is labile and is currently low Echo ordered Trend BP Adjust therapy as indicated (4) Hypothyroidism: Qualifiers: Hypothyroidism type: unspecified Qualified Code(s): E03.9 - Hypothyroidism, unspecified Code(s): E03.9 - Hypothyroidism, unspecified Status: Acute Assessment and Plan: Continue levothyroxine 75 mcg PO Daily TSH 4.320, T4 1.26, T3 1.11 Adjust therapy as indicated (5) Diabetes mellitus: Code(s): E11.9 - Type 2 diabetes mellitus without complications Status: Acute Assessment and Plan: Glucose is 154 Continue glimepiride 4mg PO daily Continue sliding scale GLP-1 on hold AC/HS A1c is Trend glucose Adjust therapy as indicated (6) Hypotension: Code(s): I95.9 - Hypotension, unspecified Status: Acute Assessment and Plan: BP noted to be 88/39 in the ed Currently stable at 124/40 Hold home atenolol Probably related to dehydration Echo ordered Seems to be present at this time (7) Mild dehydration: Code(s): E86.0 - Dehydration Status: Acute Assessment and Plan: BP noted to be low No renal failure noted IV fluids overnight Continue to trend renal function BP is stable (8) Suspected sleep apnea: Code(s): R29.818 - Other symptoms and signs involving the nervous system Status: Acute Assessment and Plan: Apnea link overnight AHI is 13 Indicates further work up need Sleep study outpatient needed (9) Elevated lipase: Code(s): R74.8 - Abnormal levels of other serum enzymes Status: Acute Assessment and Plan: Lipase 431 on admission Current lipase 56 IV fluids on board Trend labs stable at this time Time Spent With Patient Time with patient: Greater than 35 minutes Subjective Date/time seen: 06/28/22 08:15 Interval history: 06/28/22814 Patient stated that she is just having some sciatic pain today. She stated that the pain is pretty normal for her. She denies any chest pain, shortness a breath, nausea, vomiting, constipation. She did state that she had a bout of diarrhea overnight last night. She also stated that they were waiting to get stool samples. She stated that her biggest complaint is that the diarrhea is out of control and that is explosive. She also stated that when it comes it does not given a warning and his fast and she is unable to get the bathroom. She stated that her diarrhea is more than usual. She has never see Diya with GI. Also talk to her a sleep study which she said she had schedule in the past however never followed through due to COVID and never went to follow-up. Explained her that she will need to have a sleep study outpatient when she leaves. 06/27/22? 18:00 This is a 66-year-old female with hypertension, hyperlipidemia, diabetes, hypothyroidism, history of pancreatitis, and other comorbidities who presented to the emergency department for evaluation of weakness. She reports loose stools the last several days with nausea and decreased appetite
--- NOTE | 2022-06-28 08:15 | P.PNIM_ITS ---
Progress Note: A&P Assessment and Plan (1) Diarrhea: Code(s): R19.7 - Diarrhea, unspecified Status: Acute Assessment and Plan: * Chronic, however worse then normal * Stool studies pending * Could be contributing to her dehydration * GI consult for further recommendations (2) Generalized weakness: Code(s): R53.1 - Weakness Status: Acute Assessment and Plan: * Reported increased weakness * Daughter reported noticeable responsive changes * Could be related to infection, however, no indication at this time * PT/OT eval * Seems to be resolved (3) Hypertension: Code(s): I10 - Essential (primary) hypertension Status: Acute Assessment and Plan: * Current BP is 124/40 * Hold atenolol as her blood pressure is labile and is currently low * Echo ordered * Trend BP * Adjust therapy as indicated (4) Hypothyroidism: Qualifiers: Hypothyroidism type: unspecified Qualified Code(s): E03.9 - Hypothyroidism, unspecified Code(s): E03.9 - Hypothyroidism, unspecified Status: Acute Assessment and Plan: * Continue levothyroxine 75 mcg PO Daily * TSH 4.320, T4 1.26, T3 1.11 * Adjust therapy as indicated (5) Diabetes mellitus: Code(s): E11.9 - Type 2 diabetes mellitus without complications Status: Acute Assessment and Plan: * Glucose is 154 * Continue glimepiride 4mg PO daily * Continue sliding scale * GLP-1 on hold * AC/HS * A1c is * Trend glucose * Adjust therapy as indicated (6) Hypotension: Code(s): I95.9 - Hypotension, unspecified Status: Acute Assessment and Plan: * BP noted to be 88/39 in the ed * Currently stable at 124/40 * Hold home atenolol * Probably related to dehydration * Echo ordered * Seems to be present at this time (7) Mild dehydration: Code(s): E86.0 - Dehydration Status: Acute Assessment and Plan: * BP noted to be low * No renal failure noted * IV fluids overnight * Continue to trend renal function * BP is stable (8) Suspected sleep apnea: Code(s): R29.818 - Other symptoms and signs involving the nervous system Status: Acute Assessment and Plan: * Apnea link overnight * AHI is 13 * Indicates further work up need * Sleep study outpatient needed (9) Elevated lipase: Code(s): R74.8 - Abnormal levels of other serum enzymes Status: Acute Assessment and Plan: * Lipase 431 on admission * Current lipase 56 * IV fluids on board * Trend labs * stable at this time Time Spent With Patient Time with patient: Greater than 35 minutes Subjective Date/time seen: 06/28/22 08:15 Interval history: 06/28/22814 Patient stated that she is just having some sciatic pain today. She stated that the pain is pretty normal for her. She denies any chest pain, shortness a breath, nausea, vomiting, constipation. She did state that she had a bout of diarrhea overnight last night. She also stated that they were waiting to get stool samples. She stated that her biggest complaint is that the diarrhea is out of control and that is explosive. She also stated that when it comes it does n
[2022-06-28 08:50] LABS: Total Triiodothyronine (T3) 1.11 NG/ML (0.97-1.69)
[2022-06-28 08:58] LABS: Glucose Point of Care 172 mg/dl (65-105)
[2022-06-28] MEDS: ENOXAPARIN 40 MG/0.4 ML SYRINGE SUB-Q (10:04)
[2022-06-28] MEDS: cycloSPORINE 0.4 ML OPHTH SOLUTION 1 DROP EACH EYE ×2 (10:04→21:33)
[2022-06-28] MEDS: GLIMEPIRIDE 2 MG TABLET 4 MG PO (10:05)
[2022-06-28] MEDS: DULoxetine HCL 60 MG CAPSULE.DR PO (10:06)
[2022-06-28 12:21] LABS: Glucose Point of Care 242 mg/dl (65-105)
[2022-06-28] MEDS: INSULIN ASPART (*BKC) 100 UNITS/ML SUB-Q (12:31)
[2022-06-28] MEDS: TIZANIDINE HCL 2 MG TABLET PO (12:31)
[2022-06-28 14:05] VITALS: BP 128/62; PULSE 70; RESP 18; TEMP 36.4; O2SAT 97
[2022-06-28] MEDS: HYDROcodone/acetaminophen (*CRX) 5-325 MG TABLET 1 TAB PO (16:38)
[2022-06-28 17:11] LABS: Glucose Point of Care 157 mg/dl (65-105)
[2022-06-28] MEDS: PREGABALIN (*CRX) 75 MG CAPSULE PO (21:24)
[2022-06-28] MEDS: rOPINIRole HCL 0.5 MG TABLET PO (21:33)
[2022-06-28 21:44] LABS: Glucose Point of Care 152 mg/dl (65-105)
[2022-06-28 22:32] VITALS: BP 122/69; PULSE 70; RESP 16; TEMP 36.2; O2SAT 94
[2022-06-29] VITALS (10 sets, daily range): BP systolic 121–174; BP diastolic 44–81; PULSE 69–81; RESP 18–22; TEMP 35.7–36.6; O2SAT 93–99
[2022-06-29] MEDS: HYDROcodone/acetaminophen (*CRX) 5-325 MG TABLET 1 TAB PO ×3 (01:45→22:14)
[2022-06-29 05:40] LABS: Basophils Absolute Auto 0.1 K/mm3 (0.0-0.1); Basophils Percent Auto 0.8 % (0.2-1.2); Eosinophils Absolute Auto 0.2 K/mm3 (0-0.3); Eosinophils Percent Auto 2.4 % (0-4.4); Hematocrit 38.7 % (37.0-47.0); Hemoglobin 12.1 g/dL (12.0-15.0); Immature Granulocyte Absolute 0.07 K/mm3 (0.00-0.031); Immature Granulocyte Percent A 0.8 % (0-0.5); Lymphocytes Absolute Auto 4.43 K/mm3 (0.9-3.2); Lymphocytes Percent Auto 47.8 % (18.3-44.2); Mean Corpuscular HGB Conc 31.3 g/dl (32-36); Mean Corpuscular Hemoglobin 26.4 pg (26-34); Mean Corpuscular Volume 84.3 fl (80-100); Mean Platelet Volume 11.5 fl (7.4-10.4); Monocytes Absolute Auto 0.6 K/mm3 (0.1-0.6); Neutrophils Absolute Auto 3.9 K/mm3 (1.3-6.7); Neutrophils Percent Auto 42.2 % (45.5-73.1); Platelet Count Result 169 k/mm3 (150-375); Red Blood Count 4.59 M/mm3 (4.2-5.4); Red Cell Distribution Width 14.4 % (11.5-14.5); White Blood Count 9.3 K/mm3 (4.5-10.0)
[2022-06-29 05:49] LABS: Alanine Aminotransferase 18 U/L (6-35); Albumin Level 3.9 g/dL (3.5-5.1); Alkaline Phosphatase 77 U/L (38-126); Anion Gap 8 mmol/L (8-16); Aspartate Amino Transferase 21 U/L (14-36); Bilirubin,Total 0.5 mg/dL (0.2-1.3); Blood Urea Nitrogen 9 mg/dL (7-17); Calcium 8.5 mg/dL (8.4-10.2); Carbon Dioxide 27 mmol/L (22-30); Chloride 104 mmol/L (98-107); Estimated CRCL calculation 55 ml/min; Estimated Glomerular Filt Rate 55; Glucose 115 mg/dL (65-110); Magnesium 2.2 mg/dL (1.6-2.3); Potassium 3.3 mmol/L (3.4-5.0); Sodium 139 mmol/L (137-145)
[2022-06-29] MEDS: LEVOTHYROXINE SODIUM 75 MCG TABLET PO (05:52)
[2022-06-29] MEDS: POTASSIUM CHLORIDE 20 MEQ TABLET PO (08:35)
[2022-06-29] MEDS: GLIMEPIRIDE 2 MG TABLET 4 MG PO (08:35)
[2022-06-29] MEDS: ENOXAPARIN 40 MG/0.4 ML SYRINGE SUB-Q (08:35)
[2022-06-29] MEDS: cycloSPORINE 0.4 ML OPHTH SOLUTION 1 DROP EACH EYE ×2 (08:36→20:51)
[2022-06-29] MEDS: DULoxetine HCL 60 MG CAPSULE.DR PO (08:36)
[2022-06-29 08:41] LABS: Glucose Point of Care 113 mg/dl (65-105)
[2022-06-29 11:59] LABS: Glucose Point of Care 136 mg/dl (65-105)
--- NOTE | 2022-06-29 13:33 | PC.NURSE ---
On 06/29/22, the student, [Altagracia Hill], provided care and completed [facility] documentation on this patient. I have reviewed the student's documentation and agree with the findings.
--- NOTE | 2022-06-29 14:19 | PC.NURSE ---
On 06/29/22, the student, [Altagracia Hill], provided care and completed [facility] documentation on this patient. I have reviewed the student's documentation and agree with the findings.
[2022-06-29 16:57] LABS: Glucose Point of Care 155 mg/dl (65-105)
--- NOTE | 2022-06-29 17:14 | WPDGICN ---
Assessment and Plan Assessment and plan (1) Chronic diarrhea: Code(s): K52.9 - Noninfective gastroenteritis and colitis, unspecified Status: Acute Assessment and Plan: wonder if could be functional or related to DM, will do a colonoscopy with random colon bx to check if colitis also get esr, crp and serology for celiac disease another differential could be EPI (apparently h/o pancreatitis), CT scan negative but mild elevated lipase. If work up negative probably can try as outpatient on pancreatic enzymes (2) Diabetes mellitus: Code(s): E11.9 - Type 2 diabetes mellitus without complications Status: Acute Assessment and Plan: on treatment (3) Elevated lipase: Code(s): R74.8 - Abnormal levels of other serum enzymes Status: Acute Assessment and Plan: no abdominal pain or signs of pancreatitis monitor (4) Mild dehydration: Code(s): E86.0 - Dehydration Status: Acute Assessment and Plan: treated (5) Hypotension: Code(s): I95.9 - Hypotension, unspecified Status: Acute Assessment and Plan: treated (6) Generalized weakness: Code(s): R53.1 - Weakness Status: Acute GI Consult Note Consult date/time: 06/29/22 17:14 Reason for consult: diarrhea HPI: Inna Craig is a 66 year old female with history of hypertension, hyperlipidemia, diabetes, hypothyroidism, history of pancreatitis who presented to the emergency department for evaluation of weakness and also slurred speech and difficulty staying awake. She was hypotensive and treated accordingly. She is feeling ok right now. She has chronic diarrhea and diagnosed with possible IBS and fibromyalgia years ago but last few months has been experiencing loose stools mostly after eating anything, sometimes she can not even make it to the restroom and will have accidents, she is not taking anything to control diarrhea. Also history of GERD on omeprazole daily, last colonoscopy about [address] scan of the abdomen and pelvis reviewed and acute findings and her chest x-ray was also unremarkable. Review of Systems Review of Systems: CONSTITUTIONAL: Not feeling well EYES: Denies visual changes, redness, or discharge. ENT: Denies rhinorrhea, congestion, sore throat, or otalgia. CARDIOVASCULAR: See HPI RESPIRATORY: Denies cough or dyspnea. GASTROINTESTINAL: Some nausea but no vomiting GENITOURINARY: Denies dysuria or hematuria. SKIN: Denies rash or itching. MUSCULOSKELETAL: Denies back pain, joint pain, or myalgia. NEUROLOGIC: Denies headache, numbness, or weakness. PSYCHIATRIC: History of anxiety [facility] Past Medical History Medical History (Updated 06/29/22 @ 17:19 by Stephen Royal MD) Allergic dermatitis Asthma Basal cell carcinoma BMI greater than 40 Chronic diarrhea Chronic pain disorder Degenerative disc disease Depression Diabetes 1.5, managed as type 2 Essential (primary) hypertension Fibromyalgia Generalized anxiety disorder GERD without esophagitis Hepatic steatosis Hyperlipemia, mixed Hypothyroidism Irritable bowel syndrome with diarrhea Lumbar back pain with radiculopathy affecting right lower extremity Lumbar disc disease Morbid (severe) obesity due to excess calories Morbid obesity Nodule of right lung Obesity, unspecified Obstructive sleep apnea (adult) (pediatric) Likely obstructive sleep apnea however patient has not have polysomnogram Other asthma Restless leg syndrome Right arm numbness Right rotator cuff tendinitis RLS (restless legs syndrome) Suspected sleep apnea Tinea pedis of both feet Type 2 diabetes mellitus with diabetic neuropathy Type 2 diabetes mellitus with other specified complication Ulnar neuropathy at elbow Urinary incontinence in female Surgical History Surgical History H/O cervical spine surgery History of appendectomy History of carpal tunnel release (
--- NOTE | 2022-06-29 17:37 | PM.IMPN ---
Progress Note: A&P Assessment and Plan (1) Diarrhea: Code(s): R19.7 - Diarrhea, unspecified Status: Chronic Assessment and Plan: chronic issue which she states has worsened appreciate GI consultation planning for colonoscopy tomorrow with biopsy serology for celiac disease pending (2) Mild dehydration: Code(s): E86.0 - Dehydration Status: Acute Assessment and Plan: patient with poor p.o. intake and chronic diarrhea, appeared dry and dehydration with low BP she has been rehydrated with IV fluids volume status is adequate at this time tolerating p.o. intake without difficulty. encouraged continued p.o. fluid intake (3) Generalized weakness: Code(s): R53.1 - Weakness Status: Acute Assessment and Plan: presented with increased weakness likely related to acute dehydration she is at her baseline functional status at this time (4) Hypotension: Code(s): I95.9 - Hypotension, unspecified Status: Acute Assessment and Plan: BP noted to be 88/39 on presentation patient was adequately rehydrated and BP has improved remaining stable on the lower end of normal home atenolol is on hold monitor orthostatics (5) Hypothyroidism: Qualifiers: Hypothyroidism type: unspecified Qualified Code(s): E03.9 - Hypothyroidism, unspecified Code(s): E03.9 - Hypothyroidism, unspecified Status: Acute Assessment and Plan: TSH 4.320, T4 1.26, T3 1.11 continue home levothyroxine (6) Diabetes mellitus: Code(s): E11.9 - Type 2 diabetes mellitus without complications Status: Acute Assessment and Plan: A1c is 8.3. Blood sugars have been well controlled continue Accu-Cheks, sliding scale insulin, and hypoglycemic protocol continue home glimepiride 4 mg daily semaglutide on hold (7) Suspected sleep apnea: Code(s): R29.818 - Other symptoms and signs involving the nervous system Status: Acute Assessment and Plan: Apnea link completed with AHI is 13 will need outpatient formal sleep study Subjective Date/time seen: 06/29/22 17:37 Interval history: date of service: 06/29/2022 Inna Craig is a 66-year-old female with a history of hypertension, hyperlipidemia, hypothyroidism, CARMEN, type 2 diabetes mellitus, fibromyalgia, asthma, and several other medical problems who is seen in follow-up for acute dehydration and diarrhea. She is feeling much better today. She does have a mild headache. Her dizziness has resolved. Her last bowel movement was on Monday when she had explosive diarrhea but has not had any bowel movements since that time. She has no abdominal pain. She denies nausea or vomiting. She is tolerating her diet. No fevers or chills. No shortness breath, cough, chest pain, palpitations. Review of Systems Review of Systems: All systems reviewed & are unremarkable except as noted in HPI and below Exam Narrative: General: Obese, well-appearing 66-year-old female, sitting up in bed, comfortable, NARD Neuro: awake, alert and oriented x4, speech clear, no focal neuro deficits noted HEENMT: normocephalic, atraumatic, EOMI, sclerae anicteric Respiratory: clear to auscultation bilaterally, nonlabored breathing Cardio: regular rate, regular rhythm with S1-S2 Abdomen: nondistended, normoactive bowel sounds, soft, nontender to palpation Extremities: no edema, erythema, or tenderness to palpation, DP pulses 2+ bilaterally Skin: no rashes or lesions, warm and dry Psych: appropriate mood and affect, judgment and insight intact Objective Data Vital Signs Vital Signs: Vital Signs - 24 hr 06/28/22 22:32 06/29/22 06:00 06/29/22 06:00 Temperature 97.1 F L 96.3 F L 96.3 F L Pulse Rate 70 69 69 Respiratory Rate 16 20 20 Blood Pressure 122/69 121/47 L 121/47 L Pulse Oximetry 94 99 99 Oxygen Delivery 06/29/22 06:05 06/05
[2022-06-29] MEDS: polyethylene glycoL 3350 238 GM BOTTLE PO (18:13)
[2022-06-29] MEDS: BISACODYL 5 MG TABLET EC 20 MG PO (18:59)
[2022-06-29] MEDS: rOPINIRole HCL 0.5 MG TABLET PO (20:51)
[2022-06-29] MEDS: PREGABALIN (*CRX) 75 MG CAPSULE PO (20:51)
[2022-06-29 21:03] LABS: Glucose Point of Care 224 mg/dl (65-105)
[2022-06-30] VITALS (15 sets, daily range): BP systolic 110–154; BP diastolic 45–78; PULSE 69–92; RESP 14–20; TEMP 35.8–36.8; O2SAT 94–99
[2022-06-30 05:19] LABS: Hematocrit 37.1 % (37.0-47.0); Hemoglobin 11.8 g/dL (12.0-15.0); Mean Corpuscular HGB Conc 31.8 g/dl (32-36); Mean Corpuscular Hemoglobin 26.4 pg (26-34); Platelet Count Result 171 k/mm3 (150-375); Red Blood Count 4.47 M/mm3 (4.2-5.4); Red Cell Distribution Width 14.2 % (11.5-14.5); White Blood Count 8.6 K/mm3 (4.5-10.0)
[2022-06-30 05:31] LABS: Anion Gap 10 mmol/L (8-16); Blood Urea Nitrogen 6 mg/dL (7-17); CRP 1.4 mg/dL (<1.0); Calcium 8.6 mg/dL (8.4-10.2); Carbon Dioxide 27 mmol/L (22-30); Chloride 104 mmol/L (98-107); Estimated CRCL calculation 62 ml/min; Estimated Glomerular Filt Rate > 60; Glucose 113 mg/dL (65-110); Potassium 3.6 mmol/L (3.4-5.0); Sodium 141 mmol/L (137-145)
[2022-06-30] MEDS: LEVOTHYROXINE SODIUM 75 MCG TABLET PO (06:00)
[2022-06-30] MEDS: PANTOPRAZOLE 40 MG TABLET PO (06:18)
[2022-06-30 08:33] LABS: Glucose Point of Care 109 mg/dl (65-105)
[2022-06-30] MEDS: ENOXAPARIN 40 MG/0.4 ML SYRINGE SUB-Q (08:42)
[2022-06-30] MEDS: cycloSPORINE 0.4 ML OPHTH SOLUTION 1 DROP EACH EYE ×2 (08:43→20:32)
[2022-06-30] MEDS: GLIMEPIRIDE 2 MG TABLET 4 MG PO (08:43)
[2022-06-30] MEDS: DULoxetine HCL 60 MG CAPSULE.DR PO (08:43)
[2022-06-30 08:50] LABS: Erythrocyte Sedimentation Rate 18 mm/hr (0-20)
[2022-06-30] MEDS: HYDROcodone/acetaminophen (*CRX) 5-325 MG TABLET 1 TAB PO ×2 (11:36→20:35)
[2022-06-30 12:26] LABS: Glucose Point of Care 91 mg/dl (65-105)
--- NOTE | 2022-06-30 13:02 | WPDANESEPPF ---
Anes - Initial Pre Proc Eval Procedure: Operation Date: 06/30/22 16:00 Proposed Procedures p Colonoscopy - Stephen Royal MD Date/Time: 06/30/22 13:02 Surgeon: Kelly Marinelli PA-C Pre Op Diagnosis: Dehydration Patient Data Age: 66 Gender: F Height: 1.52 m Weight: 113 kg Last Vital Signs Temp 36.2 C L 06/30/22 10:17 Pulse 78 06/30/22 10:17 Resp 17 06/30/22 10:17 BP 144/65 H 06/30/22 10:17 Pulse Ox 96 06/30/22 10:17 O2 Del Method Room Air 06/30/22 08:40 O2 Flow Rate 2 06/27/22 13:10 Allergies Allergy/AdvReac Type Severity Reaction Status Date / Time adhesive Allergy Unknown Unknown Verified 06/27/22 18:50 ciprofloxacin Allergy Unknown Unknown Verified 06/27/22 18:50 clarithromycin Allergy Unknown Unknown Verified 06/27/22 18:50 gabapentin Allergy Unknown Unknown Verified 06/27/22 18:50 metformin Allergy Unknown diarrhea Verified 06/27/22 18:50 neomycin Allergy Unknown Itching Verified 06/27/22 18:50 oseltamivir Allergy Unknown Unknown Verified 06/27/22 18:50 Penicillins Allergy Unknown Unknown Verified 06/27/22 18:50 Sulfa (Sulfonamide Allergy Unknown Unknown Verified 06/27/22 18:50 Antibiotics) Home Medications Medication Instructions Recorded Confirmed Type lancets (Accu-Chek Multiclix #200 ea 06/28/21 06/28/22 Rx Lancet) cyclosporine 0.05 % eye drops 1 drp EACH EYE Q12H #5.5 mL 11/17/21 06/27/22 Rx (Restasis MultiDose) propylene glycol 0.6 % eye drops 1 drp EACH EYE TID PRN dry eye(s) 11/17/21 06/27/22 Rx (Systane Complete) #5 mL albuterol sulfate 2.5 mg/3 mL 2.5 mg (3 mL) inhalation Q4-6H PRN 11/25/21 06/27/22 Rx (0.083 %) solution for nebulization shortness of breath or wheezing #75 mL alprazolam 0.25 mg tablet 0.25 mg PO DAILY PRN anxiety #90 11/25/21 06/27/22 Rx tabs ondansetron HCl 4 mg tablet 4 mg PO Q8H PRN nausea and 11/25/21 06/27/22 Rx vomiting #30 tabs blood sugar diagnostic (Accu-Chek #150 strips 03/07/22 06/28/22 Rx Guide test strips) albuterol sulfate 90 mcg/actuation 2 puff inhalation Q4H PRN 03/08/22 06/27/22 Rx aerosol inhaler Shortness Of Breath #8.5 grams duloxetine 60 mg capsule,delayed 60 mg PO DAILY #90 caps 04/12/22 06/27/22 Rx release glimepiride 4 mg tablet 4 mg PO QAM #90 tabs 04/20/22 06/27/22 Rx insulin aspart U-100 100 unit/mL 1 sliding scale dose subcut TIDWM 04/20/22 06/27/22 Rx subcutaneous solution #10 mL semaglutide 0.25 mg or 0.5 mg (2 0.25 mg (0.2 mL) subcut WEEKLY 05/12/22 06/27/22 Rx mg/1.5 mL) subcutaneous pen #1.5 mL injector ([employer]) blood-glucose meter (Accu-Chek #1 ea 05/26/22 06/28/22 Rx Guide Glucose Meter) insulin syringe-needle U-100 0.5 #100 ea 05/26/22 06/28/22 Rx mL 30 gauge x 1/2 (BD Insulin Syringe Ultra-Fine) tizanidine 2 mg tablet 2 mg PO TID PRN pain #30 tabs 06/17/22 06/27/22 Rx atenolol 50 mg tablet 50 mg PO DAILY 06/27/22 06/27/22 History clobetasol 0.05 % topical cream 1 applic topical DAILY PRN 06/27/22 06/27/22 History irritation levothyroxine 75 mcg tablet 75 mcg PO DAILY 06/27/22 06/27/22 History nystatin 100,000 unit/gram topical 1 applic topical TID PRN Itching 06/27/22 06/27/22 History powder omeprazole 20 mg capsule,delayed 20 mg PO DAILY PRN Heartburn 06/27/22 06/27/22 History release pregabalin 75 mg capsule 75 mg PO HS 06/27/22 06/27/22 History ropinirole 0.5 mg tablet 0.5 mg PO HS 06/27/22 06/27/22 History triamcinolone acetonide 0.1 % 1 applic topical BID PRN Skin 06/27/22 06/27/22 History topical cream Irritation Laboratory Tests 06/29/22 06/29/22 06/30/22 16:54 20:53 05:07 WBC 8.6 K/mm3 K/mm3 (4.5-10.0) RBC 4.47 M/mm3 M/mm3 (4.2-5.4) Hgb 11.8 g/dL L g/dL (12.0-15.0) Hct 37.1 % % (37.0-47.0) MCV 83.0 fl fl (80-100) MCH 26.4 pg pg (26-34) MCHC 31.8 g/dl L g/dl (32-36) RDW 14.2 % % (11.5-14.5) Plt Count 17
--- NOTE | 2022-06-30 14:15 | PM.IMPN ---
Progress Note: A&P Assessment and Plan (1) Diarrhea: Code(s): R19.7 - Diarrhea, unspecified Status: Chronic Assessment and Plan: chronic issue which she states has worsened appreciate GI consultation planning for colonoscopy this afternoon serology for celiac disease pending (2) Mild dehydration: Code(s): E86.0 - Dehydration Status: Resolved Assessment and Plan: patient with poor p.o. intake and chronic diarrhea, appeared dry and dehydrated with low BP she has been rehydrated with IV fluids volume status is adequate at this time tolerating p.o. intake without difficulty (NPO today for colonoscopy) (3) Generalized weakness: Code(s): R53.1 - Weakness Status: Acute Assessment and Plan: presented with increased weakness likely related to acute dehydration she is at her baseline functional status at this time (4) Hypotension: Code(s): I95.9 - Hypotension, unspecified Status: Acute Assessment and Plan: BP noted to be 88/39 on presentation patient was adequately rehydrated and BP has improved Blood pressures improved now. Will resume PO atenolol following colonoscopy monitor orthostatics (5) Hypothyroidism: Qualifiers: Hypothyroidism type: unspecified Qualified Code(s): E03.9 - Hypothyroidism, unspecified Code(s): E03.9 - Hypothyroidism, unspecified Status: Acute Assessment and Plan: TSH 4.320, T4 1.26, T3 1.11 continue home levothyroxine (6) Diabetes mellitus: Code(s): E11.9 - Type 2 diabetes mellitus without complications Status: Acute Assessment and Plan: A1c is 8.3. Blood sugars have been well controlled continue Accu-Cheks, sliding scale insulin, and hypoglycemic protocol continue home glimepiride 4 mg daily semaglutide on hold (7) Suspected sleep apnea: Code(s): R29.818 - Other symptoms and signs involving the nervous system Status: Acute Assessment and Plan: Apnea link completed with AHI is 13 will need outpatient formal sleep study Subjective Date/time seen: 06/30/22 14:15 Interval history: date of service: 06/30/2022 Inna Craig is a 66-year-old female with a history of hypertension, hyperlipidemia, hypothyroidism, CARMEN, type 2 diabetes mellitus, fibromyalgia, asthma, and several other medical problems who is seen in follow-up for acute dehydration and diarrhea. She is feeling okay today. She does have some shoulder and arm discomfort. She thinks this is related to her fibromyalgia and thinks it has been irritated by having her blood pressure checked on the arm. She also has some low back pain which she contributes to sciatica. She tolerated prep for colonoscopy well. She has been having loose, yellowish stools today. She denies nausea or vomiting. She did have an episode of GERD last night but this improved with medication. She denies shortness of breath. No fever, chills, nausea, vomiting. Denies urinary symptoms. She was concerned because she noticed some inaccurate diagnoses in her medical chart. Informed her that she can be in touch with medical records to request correction. Offered to provide phone number but patient states she will follow-up in person. Review of Systems Review of Systems: All systems reviewed & are unremarkable except as noted in HPI and below Exam Narrative: General: Obese, well-appearing 66-year-old female, sitting up in bed, comfortable, NARD Neuro: awake, alert and oriented x4, speech clear, no focal neuro deficits noted HEENMT: normocephalic, atraumatic, EOMI, sclerae anicteric Respiratory: clear to auscultation bilaterally, nonlabored breathing Cardio: regular rate, regular rhythm with S1-S2 Abdomen: nondistended, normoactive bowel sounds, soft, nontender to palpation Extremities: no edema, erythema, or tenderness to palpation, DP pulses 2+ bilater
--- NOTE | 2022-06-30 14:54 | PCPTNOTE ---
Patient refused treatment this session due to patient waiting to go down for testing and wanted to stay in bed at this time.
[2022-06-30] MEDS: LACTATED RINGERS 1,000 ML 150 ML IV CONT (15:45)
[2022-06-30 17:26] LABS: Glucose Point of Care 71 mg/dl (65-105)
[2022-06-30 19:03] LABS: Glucose Point of Care 73 mg/dl (65-105)
[2022-06-30] MEDS: PREGABALIN (*CRX) 75 MG CAPSULE PO (20:32)
[2022-06-30] MEDS: rOPINIRole HCL 0.5 MG TABLET PO (20:32)
[2022-06-30 20:42] LABS: Glucose Point of Care 91 mg/dl (65-105)
[2022-07-01 03:13] VITALS: BP 117/51; PULSE 66; RESP 18; TEMP 35.7; O2SAT 95
[2022-07-01] MEDS: HYDROcodone/acetaminophen (*CRX) 5-325 MG TABLET 1 TAB PO ×2 (03:22→10:04)
[2022-07-01 05:33] LABS: Hematocrit 35.6 % (37.0-47.0); Hemoglobin 11.2 g/dL (12.0-15.0); Mean Corpuscular HGB Conc 31.5 g/dl (32-36); Mean Corpuscular Hemoglobin 26.2 pg (26-34); Mean Corpuscular Volume 83.4 fl (80-100); Mean Platelet Volume 11.4 fl (7.4-10.4); Platelet Count Result 171 k/mm3 (150-375); Red Blood Count 4.27 M/mm3 (4.2-5.4); Red Cell Distribution Width 14.2 % (11.5-14.5); White Blood Count 7.8 K/mm3 (4.5-10.0)
[2022-07-01] MEDS: LEVOTHYROXINE SODIUM 75 MCG TABLET PO (05:49)
[2022-07-01 06:10] LABS: Anion Gap 10 mmol/L (8-16); Blood Urea Nitrogen 5 mg/dL (7-17); Calcium 8.4 mg/dL (8.4-10.2); Carbon Dioxide 26 mmol/L (22-30); Chloride 104 mmol/L (98-107); Estimated CRCL calculation 61 ml/min; Estimated Glomerular Filt Rate > 60; Glucose 108 mg/dL (65-110); Potassium 3.2 mmol/L (3.4-5.0); Sodium 140 mmol/L (137-145)
[2022-07-01 09:12] LABS: Glucose Point of Care 96 mg/dl (65-105)
[2022-07-01] MEDS: POTASSIUM CHLORIDE 20 MEQ TABLET 40 MEQ PO (09:35)
[2022-07-01] MEDS: GLIMEPIRIDE 2 MG TABLET 4 MG PO (09:35)
[2022-07-01] MEDS: ENOXAPARIN 40 MG/0.4 ML SYRINGE SUB-Q (09:35)
[2022-07-01] MEDS: DULoxetine HCL 60 MG CAPSULE.DR PO (09:35)
[2022-07-01 10:50] VITALS: BP 139/58
[2022-07-01 10:55] VITALS: BP 141/66
[2022-07-01 11:00] VITALS: BP 127/61
[2022-07-01 12:26] LABS: Glucose Point of Care 139 mg/dl (65-105)
--- NOTE | 2022-07-01 13:16 | PM.DS ---
DS: Admitting Diagnosis Discharge Date 07/01/2022 Admitting Diagnosis Dehydration DS: Discharge Diagnosis Discharge Diagnosis (1) Diarrhea: Code(s): R19.7 - Diarrhea, unspecified Status: Chronic Assessment and Plan: Chronic issue which she states has worsened recently. She was seen in consultation by GI and underwent colonoscopy which revealed diverticulosis, colon polyp, and internal hemorrhoids without evidence of obvious colitis or any other findings to explain diarrhea. Several biopsies taken to evaluate for microscopic colitis. Serology for celiac disease pending. She will follow-up with GI as an outpatient for review of biopsy and serology results. (2) Mild dehydration: Code(s): E86.0 - Dehydration Status: Resolved Assessment and Plan: Patient with poor p.o. intake and chronic diarrhea, appeared dry and dehydrated with low BP on admission. She was adequately rehydrated with IV fluids and was able to tolerate appropriate PO intake. (3) Generalized weakness: Code(s): R53.1 - Weakness Status: Acute Assessment and Plan: Presented with increased weakness. Likely related to acute dehydration. This improved and patient returned to baseline functional status. (4) Hypotension: Code(s): I95.9 - Hypotension, unspecified Status: Acute Assessment and Plan: BP noted to be 88/39 on presentation. Improved with IV fluid bolus. BP stable following. Orthostatics negative. (5) Hypothyroidism: Qualifiers: Hypothyroidism type: unspecified Qualified Code(s): E03.9 - Hypothyroidism, unspecified Code(s): E03.9 - Hypothyroidism, unspecified Status: Acute Assessment and Plan: TSH 4.320, T4 1.26, T3 1.11. Continue home levothyroxine (6) Diabetes mellitus: Code(s): E11.9 - Type 2 diabetes mellitus without complications Status: Acute Assessment and Plan: A1c is 8.3. Blood sugars were well controlled during admission. Continue home glimepiride 4 mg daily and weekly Ozempic. (7) Suspected sleep apnea: Code(s): R29.818 - Other symptoms and signs involving the nervous system Status: Acute Assessment and Plan: Apnea link completed with AHI 13. Will need outpatient formal sleep study (8) Hypokalemia: Code(s): E87.6 - Hypokalemia Status: Acute Assessment and Plan: Potassium slightly low at 3.2 following colonoscopy, likely due to colonoscopy prep and subsequent diarrhea and NPO for procedure. Potassium supplemented. Anticipate complete resolution as diet was resumed. DS: Summary Hospital Course Hospital Course: Date of admission 06/27/2022 Date of discharge 07/01/2022 Inna Craig is a 66-year-old female with a history of hypertension, hyperlipidemia, hypothyroidism, CARMEN, type 2 diabetes mellitus, fibromyalgia, asthma, and several other medical problems who presented to the emergency department on 06/27/2022 with complaints of fatigue and weakness following several episodes of diarrhea. On presentation to the ED, her BP was low at 95/54 with additional vital signs stable, laboratory workup relatively unremarkable, COVID influenza negative, UA without concerns for infection, CXR showed no acute findings, and CT of the abdomen/pelvis showed hepatic steatosis and mild colonic diverticulosis with no other acute findings. She was admitted to the hospitalist service for further evaluation and management was seen in consultation by Gastroenterology. Please see above for further details. Patient was rehydrated and had symptomatic improvement. She was ambulating independently. Underwent colonoscopy and will follow-up outpatient with GI to review results. Patient very eager for discharge back home given her overall improvement. She determined to no longer require inpatient care and was discharged in hemodynamically stable condition 07/01/2022. Discussed with the pa
[2022-07-05 18:22] LABS: Tissue Transglutaminase IgA Ab <1.0 U/mL (<15.0)
[2022-07-06 17:48] LABS: Tissue Transglutaminase IgG Ab <1.0 U/mL (<15.0)
== END 2022-07-01 14:27 | disposition home or self-care (01) ==
LOC: ANHED 16:05 → ANH2MED 18:43
PROVIDERS: Emergency Medicine; Internal Medicine Gastroenterology; Nurse Practitioner; Physician Assistant; Admitting Provider Family Medicine; Emergency Provider Emergency Medicine; PCP Family Medicine; Visit Provider Physician Assistant
PROC: 0DJD8ZZ Inspection of Lower Intestinal Tract, Via Natural or Artificial Opening Endoscopic (ICD-10-PCS; CPT 45378; principal; 2022-06-30 16:00)
DX: D12.0 Benign neoplasm of cecum (principal); D12.3 Benign neoplasm of transverse colon; N20.0 Calculus of kidney; K57.30 Diverticulosis of large intestine without perforation or abscess without bleeding; R19.7 Diarrhea, unspecified; R53.1 Weakness; K64.8 Other hemorrhoids; J45.909 Unspecified asthma, uncomplicated; I11.0 Hypertensive heart disease with heart failure; I50.30 Unspecified diastolic (congestive) heart failure; I27.20 Pulmonary hypertension, unspecified; I35.8 Other nonrheumatic aortic valve disorders; Z20.822 Contact with and (suspected) exposure to COVID-19; E78.2 Mixed hyperlipidemia; E03.9 Hypothyroidism, unspecified; G47.30 Sleep apnea, unspecified; R29.818 Other symptoms and signs involving the nervous system; R06.09 Other forms of dyspnea; I95.9 Hypotension, unspecified; E66.01 Morbid (severe) obesity due to excess calories; E86.0 Dehydration; Z68.42 Body mass index [BMI] 45.0-49.9, adult; E11.40 Type 2 diabetes mellitus with diabetic neuropathy, unspecified; Z90.49 Acquired absence of other specified parts of digestive tract; Z82.49 Family history of ischemic heart disease and other diseases of the circulatory system; Z83.3 Family history of diabetes mellitus; Z77.22 Contact with and (suspected) exposure to environmental tobacco smoke (acute) (chronic); F10.90 Alcohol use, unspecified, uncomplicated; F12.90 Cannabis use, unspecified, uncomplicated; Z87.19 Personal history of other diseases of the digestive system; R74.8 Abnormal levels of other serum enzymes; Z86.73 Personal history of transient ischemic attack (TIA), and cerebral infarction without residual deficits; Z79.51 Long term (current) use of inhaled steroids; Z79.84 Long term (current) use of oral hypoglycemic drugs; Z79.52 Long term (current) use of systemic steroids; Z79.899 Other long term (current) drug therapy
CPT/HCPCS: 45380; 36415; 51701; 70450; 71046; 74177; 80048; 80053; 81001; 82948; 83036; 83516; 83690; 83735; 84439; 84443; 84480; 84484; 85025; 85027; 85055; 85610; 85652; 85730; 86140; 87040; 87502; 88305; 93005; 93306; 96361; 96365; 96367; 96372; 96375; 97110; 97161; 97165; 97530; 99285; A9270; G0378; J0696; J1650; J1815; J2704; J3475; J7030; J7120; Q9967; U0003; U0005

== ENCOUNTER 2022-07-05 13:40 | Outpatient (CLI) | payer OTHER, SELFPAY ==
--- NOTE | ~2022-07-05 | MMUS_ITS ---
EXAMINATION: MM diagnostic lisa BI w isabella, US breast BI complete HISTORY: Right breast lump. Bilateral breast pain. TECHNIQUE: Additional 3-D tomosynthesis images of the breasts were performed and synthetic 2-D images were generated. CAD analysis was submitted and interpreted. High resolution complete bilateral breas t ultrasound was performed. COMPARISON: Comparison to multiple prior studies sequentially, with oldest reviewed study dated 05/31. BREAST PARENCHYMAL COMPOSITION: Breast composition is almost entirely fatty FINDINGS: MAMMOGRAPHIC FINDINGS: The breast are stable. No suspicious masses, calcifications or architectural distortion are seen in e ither breast to suggest malignancy. ULTRASOUND: Complete bilateral US of all 4 quadrants of the breasts and retroareolar region was reviewed. There a re bilateral breast cysts including a 3 mm cyst at the right breast at 11:00, 5 cm from the nipple a 3 mm cyst in the left breast at 9:00, 6 cm from the nipple and a 5 mm cyst in the left breast at 10:0 0, 5 cm from the nipple. No suspicious solid masses to suggest malignancy IMPRESSION: 1. No evidence for malignancy in either breast. Benign findings. 2. Routine yearly screening mammogram and regular clinical breast examination are recommended. BI-RADS Category 2: Benign finding(s). Reviewed, dictated and finalized at location A. IMPRESSION: 1. No evidence for malignancy in either breast. Benign findings. 2. Routine yearly screening mammogram and regular clinical breast examination a re recommended. BI-RADS Category 2: Benign finding(s).
== END 2022-07-05 13:41 ==
PROVIDERS: PCP Nurse Practitioner Family; Visit Provider Nurse Practitioner Family
DX: N63.10 Unspecified lump in the right breast, unspecified quadrant (principal); R92.8 Other abnormal and inconclusive findings on diagnostic imaging of breast
CPT/HCPCS: 76641; 77062; 77066; G0279

== ENCOUNTER 2022-10-26 08:28 | Outpatient (CLI) | payer OTHER, SELFPAY ==
--- NOTE | 2022-11-06 14:55 | WPDHOMESLEEP ---
Sleep Study - Home Unattended Date of Study: 10/26/22 Ordering Provider: Sam Delgado MD Interpreting Provider: Rhina Thakkar, DO Home Sleep Study Type: Watch PAT Height: 1.52 m Weight: 104.326 kg Body Mass Index: 44.9 Neck Circumference (inches): 16.5 [place]: 14 Reason for Sleep Study Loud snoring, multiple nighttime awakenings Sleep History The patient is a 67-year-old female with hypothyroidism, hypertension, GERD, depression, fibromyalgia, anxiety, type 2 diabetes, restless legs morbid obesity had a sleep study ordered for evaluation of sleep apnea. The patient constantly awakens from sleep short of breath. She constantly awakens at night with heartburn, belching or cough. She constantly snores loudly enough that others complain. She constantly has trouble sleeping when she has a cold. She frequently wakes up gasping for air throughout the night. She frequently has breathing problems at night observed by herself or others. She constantly sweats excessively at night. He frequently has heart palpitations or irregular heartbeats during the night. She constantly falls asleep during the day but never while driving. He denies sleep paralysis and cataplexy. She denies having trouble at school or work due to sleepiness. She constantly experiences vivid dreamlike scenes upon awakening or falling asleep. He denies feeling afraid of going to sleep. She occasionally has nightmares occasionally remembers her dreams. She constantly has thoughts racing through her mind. She constantly feels sad or depressed. She constantly has anxiety. She frequently has muscular tension. She occasionally notices parts of her body jerk. She frequently has crawling and aching feelings in her legs and frequently has leg pain during the night. she is constantly bothered by pain during the day it but rarely awakened by pain during the night. She constantly wakes up feeling stiff morning. She constantly wakes up with sore or achy muscles. She constantly wakes up with pain in the neck, spine or other joints. She does not have a set bedtime on weekdays or weekends. the amount of time it takes for her to fall asleep is variable. She wakes up every 1-2 hours for unknown reasons. It can take her up to an hour or 2 to fall back asleep. When she awakens during the night, she will roque. She does not have a set wake up time on weekdays or weekends. She will get 6 hours of sleep at most throughout the night and during the day. She will stay in bed most of the day after waking up in the morning. She will sit and roque while watching television. She currently lives with her . She will consume caffeinated beverages within 2 hours of bedtime. She does not engage in physical exercise before bedtime. She will watch television before falling asleep. She will take naps in the afternoon or the evening but they are not refreshing. She drinks 2 caffeinated beverages throughout the day. She denies tobacco and alcohol use. She does use CBD gummies. [facility] Past Medical History Medical History Allergic dermatitis Asthma Basal cell carcinoma BMI greater than 40 Chronic diarrhea Chronic pain disorder Degenerative disc disease Depression Diabetes 1.5, managed as type 2 Essential (primary) hypertension Fibromyalgia Generalized anxiety disorder GERD without esophagitis Hepatic steatosis History of bruising easily History of stress test Hyperlipemia, mixed Hypothyroidism Irritable bowel syndrome with diarrhea Lumbar back pain with radiculopathy affecting right lower extremity Lumbar disc disease Morbid (severe) obesity due to excess calories Morbid obesity Nodule of right lung Obesity, unspecified Obstructive sleep apnea (adult) (pediatric) Likely obstructive sleep apnea however patient has not have polysomnogram Other asthma Restless leg syndrome Right arm numbness Right rotator cuff
[2022-11-06 15:13] VITALS: BMI 44.9
== END 2022-10-27 10:09 | disposition home or self-care (01) ==
LOC: ANHCSM 08:30
PROVIDERS: PCP Nurse Practitioner Family; Visit Provider Family Medicine
DX: R29.818 Other symptoms and signs involving the nervous system (principal); G47.10 Hypersomnia, unspecified; G47.33 Obstructive sleep apnea (adult) (pediatric)
CPT/HCPCS: 95800

== ENCOUNTER 2022-12-20 16:38 | Outpatient (CLI) | payer OTHER, SELFPAY ==
--- NOTE | ~2022-12-20 | DEXA_ITS ---
Bone Density Report Name: KEYON SINGLETARY Age: 67 Sex: Female Ethnicity: White Date of : 1955 Indication: postmenopausal; screening for osteoporosis; hysterectomy; Referring Provider: ISIDRO FRY Study: Bone densitometry was performed. Exam Date: December 20, 2022 Accession number: [id number] Bone Density: Region BMD T-score Z-score Classification AP Spine(L1-L4) 1.000 -0.4 1.5 Normal Femoral Neck (Left) 0.752 -0.9 0.8 Normal Total Hip (Left) 0.945 0.0 1.4 Normal Femoral Neck (Right) 0.757 -0.8 0.8 Normal Total Hip (Right) 0.945 0.0 1.4 Normal Total Hip Mean 0.945 0.0 1.4 Normal World Health Organization criteria for BMD impression classify patients as: Normal (T-score at or above -1.0), Osteopenia (T-score between -1.0 and -2.5), or Osteoporosis (T-score at or below -2.5). 10-year Fracture Risk: FRAX not reported because: All T-scores for Spine Total, Hip Total, Femoral Neck at or above -1.0 Clinical Information Provided by Patient: Has the following medical conditions: Hysterectomy Patient maximum height was 60 Menopause Age: 36 No regular weight bearing exercise Drinks caffeinated beverages Onset of menses at age 13 Number of children 2 Impression: The patient has normal bone mass. Discussion: BONE DENSITY IS ABOVE THE MINIMUM DESIRABLE LEVEL AT ALL SKELETAL SITES TESTED. This patient?s bone mineral density is above the minimum desirable level (T-score -1.0 or better) at all sites measured. The patient should follow a healthful lifestyle (good nutrition with adequate calcium and vitamin D, and appropriate weight-bearing exercise). Follow-Up: Consider repeating this study in 5 years or sooner if there is some new clinical indication. Reported by: [facility] on 12/20/2022 5:02:00 PM. Reviewed, dictated and finalized at location [facility]
== END 2022-12-20 16:39 | disposition home or self-care (01) ==
PROVIDERS: PCP Family Medicine; Visit Provider Nurse Practitioner Family
DX: Z78.0 Asymptomatic menopausal state (principal); Z91.89 Other specified personal risk factors, not elsewhere classified
CPT/HCPCS: 77080

== ENCOUNTER 2023-02-10 09:44 | Emergency (ER) | payer OTHER, SELFPAY ==
--- NOTE | ~2023-02-10 | XR_ITS ---
EXAMINATION: XR shoulder LT min 2V DATE: 02/10/2023 10:57 INDICATION: Left shoulder pain. TECHNIQUE: 4 views of left shoulder were obtained. COMPARISON: None. FINDINGS: Bone alignment is normal. No fracture. There is mild osteoarthritis of glenohumeral joint a nd severe osteoarthritis of acromioclavicular joint. There are changes of anterior fusion procedure i n cervical spine. IMPRESSION: 1. Polyarticular osteoarthritis. Reviewed, dictated and finalized at location A.
[2023-02-10 09:45] VITALS: BP 182/64; PULSE 79; RESP 16; TEMP 36.4; O2SAT 98
[2023-02-10] MEDS: KETOROLAC 15 MG/ML VIAL (*BKC) IV PUSH (10:31)
[2023-02-10 10:55] LABS: Basophils Absolute Auto 0.1 K/mm3 (0.0-0.1); Basophils Percent Auto 0.7 % (0.2-1.2); Eosinophils Absolute Auto 0.2 K/mm3 (0-0.3); Eosinophils Percent Auto 1.7 % (0-4.4); Hematocrit 41.9 % (37.0-47.0); Hemoglobin 12.9 g/dL (12.0-15.0); Immature Granulocyte Absolute 0.07 K/mm3 (0.00-0.031); Immature Granulocyte Percent A 0.7 % (0-0.5); Lymphocytes Absolute Auto 3.49 K/mm3 (0.9-3.2); Lymphocytes Percent Auto 36.9 % (18.3-44.2); Mean Corpuscular HGB Conc 30.8 g/dl (32-36); Mean Corpuscular Hemoglobin 25.4 pg (26-34); Mean Corpuscular Volume 82.5 fl (80-100); Mean Platelet Volume 11.9 fl (7.4-10.4); Monocytes Absolute Auto 0.5 K/mm3 (0.1-0.6); Monocytes Percent Auto 5.5 % (2.6-8.5); Neutrophils Absolute Auto 5.2 K/mm3 (1.3-6.7); Neutrophils Percent Auto 54.5 % (45.5-73.1); Platelet Count Result 188 k/mm3 (150-375); Red Blood Count 5.08 M/mm3 (4.2-5.4); Red Cell Distribution Width 14.6 % (11.5-14.5); White Blood Count 9.5 K/mm3 (4.5-10.0)
[2023-02-10 10:58] LABS: Appearance Urine Clear (Clear); Bilirubin Urine Negative (Negative); Blood Urine Negative (Negative); Color Urine Yellow (Yellow); Glucose Urine UA 3+ mg/dL (Negative); Ketones Urine Negative (Negative); Leukocyte Esterase Ur Negative LEU/UL (Negative); Nitrate Urine Negative (Negative); Protein Urine Negative (Negative); Specific Grav Ur 1.035 (1.001-1.035); Urobilinogen Urine 0.2 mg/dL (<2.0); pH Urine 6.5 (5.0-9.0)
[2023-02-10 11:08] LABS: Alanine Aminotransferase 17 U/L (6-35); Alkaline Phosphatase 119 U/L (38-126); Anion Gap 6 mmol/L (8-16); Aspartate Amino Transferase 17 U/L (14-36); Bilirubin,Total 0.3 mg/dL (0.2-1.3); Blood Urea Nitrogen 17 mg/dL (7-17); Calcium 9.4 mg/dL (8.4-10.2); Carbon Dioxide 27 mmol/L (22-30); Chloride 102 mmol/L (98-107); Estimated CRCL calculation 65 ml/min; Estimated Glomerular Filt Rate > 60; Glucose 335 mg/dL (65-110); Potassium 3.9 mmol/L (3.4-5.0); Sodium 135 mmol/L (137-145)
[2023-02-10 11:11] LABS: Add Urine Microscopic? NO
--- NOTE | 2023-02-10 12:23 | ED.BACK ---
HPI - Back Pain/Injury General Chief Complaint: Back Pain/Injury Stated Complaint: back pain Time Seen by Provider: 02/10/23 09:59 History of Present Illness HPI Narrative: Patient is a 67-year-old female with history of fibromyalgia that presents ER with right-sided back pain. Sudden onset this morning. Is a grabbing sensation. No radiation into the legs. No numbness or tingling in the legs or groin. Has not taken any medication for it. Denies fevers or chills or sweats. Patient also reports that she has been having left shoulder discomfort for the last 3 weeks. She saw her PCP 2 days ago and mention it but there is been no orders in regards to it. Denies any known injury. No numbness or tingling. Related Data Home Medications Medication Instructions Recorded Confirmed clobetasol 0.05 % topical cream 1 applic topical DAILY PRN 06/27/22 02/07/23 irritation nystatin 100,000 unit/gram topical 1 applic topical TID PRN Itching 06/27/22 02/07/23 powder omeprazole 20 mg capsule,delayed 20 mg PO DAILY PRN Heartburn 06/27/22 02/07/23 release triamcinolone acetonide 0.1 % 1 applic topical BID PRN Skin 06/27/22 02/07/23 topical cream Irritation Allergies Allergy/AdvReac Type Severity Reaction Status Date / Time adhesive Allergy Unknown Unknown Verified 02/10/23 09:56 ciprofloxacin Allergy Unknown Unknown Verified 02/10/23 09:56 clarithromycin Allergy Unknown Unknown Verified 02/10/23 09:56 gabapentin Allergy Unknown Unknown Verified 02/10/23 09:56 metformin Allergy Unknown diarrhea Verified 02/10/23 09:56 neomycin Allergy Unknown Itching Verified 02/10/23 09:56 oseltamivir Allergy Unknown Unknown Verified 02/10/23 09:56 Penicillins Allergy Unknown Unknown Verified 02/10/23 09:56 Sulfa (Sulfonamide Allergy Unknown Unknown Verified 02/10/23 09:56 Antibiotics) [facility] Past Medical History Medical History Allergic dermatitis Asthma Basal cell carcinoma BMI greater than 40 Chronic diarrhea Chronic pain disorder Degenerative disc disease Depression Diabetes 1.5, managed as type 2 Essential (primary) hypertension Fibromyalgia Generalized anxiety disorder GERD without esophagitis Hepatic steatosis History of bruising easily History of stress test Hyperlipemia, mixed Hypothyroidism Irritable bowel syndrome with diarrhea Lumbar back pain with radiculopathy affecting right lower extremity Lumbar disc disease Morbid (severe) obesity due to excess calories Morbid obesity Nodule of right lung Obesity, unspecified Obstructive sleep apnea (adult) (pediatric) Likely obstructive sleep apnea however patient has not have polysomnogram Other asthma Restless leg syndrome Right arm numbness Right rotator cuff tendinitis RLS (restless legs syndrome) Suspected sleep apnea Tinea pedis of both feet Type 2 diabetes mellitus with diabetic neuropathy Type 2 diabetes mellitus with other specified complication Ulnar neuropathy at elbow Urinary incontinence in female Surgical History Surgical History H/O cervical spine surgery H/O colonoscopy with polypectomy History of appendectomy (~1980) History of carpal tunnel release (~1996) History of cholecystectomy (~1995) History of dental surgery History of discectomy (~2004) Cervical History of lithotripsy (~2001) History of total hysterectomy with bilateral salpingo-oophorectomy (BSO) (~1980) Hx of sinus surgery (~1997) Hx of tonsillectomy (~1961) Family History Family History Father Hypertension Cerebrovascular accident Family history of suicide, Onset Age: 72 Mother Family history of malignant neoplasm Family history of primary malignant neoplasm of liver, Onset Age: 50 Liver cancer Grandparent Cerebrovascular accident Sibling Patient's brother is in good health Pat
[2023-02-10 12:56] VITALS: BP 226/79; PULSE 76; RESP 20; O2SAT 100
== END 2023-02-10 12:57 | disposition home or self-care (01) ==
PROVIDERS: Emergency Provider Emergency Medicine; PCP Family Medicine
DX: M54.9 Dorsalgia, unspecified (principal); J45.909 Unspecified asthma, uncomplicated; F32.A Depression, unspecified; E11.9 Type 2 diabetes mellitus without complications; I10 Essential (primary) hypertension; M79.7 Fibromyalgia; F41.9 Anxiety disorder, unspecified; K21.9 Gastro-esophageal reflux disease without esophagitis; E03.9 Hypothyroidism, unspecified
CPT/HCPCS: 36415; 73030; 80053; 81003; 85025; 96374; 99284; J1885

== ENCOUNTER 2023-07-27 06:16 | Emergency (ER) | payer MEDICARE, SELFPAY ==
[2023-07-27 06:19] VITALS: BP 181/90; PULSE 88; RESP 20; TEMP 37; O2SAT 97
--- NOTE | 2023-07-27 07:00 | ED.EXTPRO ---
HPI - Extremity Problem General Chief complaint: Extremity Problem,Nontraumatic Stated complaint: bilateral leg pain Time Seen by Provider: 07/27/23 06:51 History of Present Illness HPI Narrative: 67-year-old female history of fibromyalgia and restless leg presented to the emergency department for evaluation of worsening chronic leg pain. Patient denies any falls or injuries. Patient states the last 2 days she has increased bilateral knee and ankle pain but denies any falls or injuries. Patient also describes a worsening of her restless legs syndrome. Patient did take her medications last night with no significant improvement. Patient did take her gabapentin and Tylenol for pain control. Related Data Home Medications Medication Instructions Recorded Confirmed clobetasol 0.05 % topical cream 1 applic topical DAILY PRN 06/27/22 05/12/23 irritation nystatin 100,000 unit/gram topical 1 applic topical TID PRN Itching 06/27/22 05/12/23 powder omeprazole 20 mg capsule,delayed 20 mg PO DAILY PRN Heartburn 06/27/22 05/12/23 release triamcinolone acetonide 0.1 % 1 applic topical BID PRN Skin 06/27/22 05/12/23 topical cream Irritation empagliflozin 25 mg tablet 25 mg PO DAILY 05/12/23 05/12/23 (Jardiance) Allergies Allergy/AdvReac Type Severity Reaction Status Date / Time adhesive Allergy Unknown Unknown Verified 07/27/23 08:06 ciprofloxacin Allergy Unknown Unknown Verified 07/27/23 08:06 clarithromycin Allergy Unknown Unknown Verified 07/27/23 08:06 gabapentin Allergy Unknown Unknown Verified 07/27/23 08:06 metformin Allergy Unknown diarrhea Verified 07/27/23 08:06 neomycin Allergy Unknown Itching Verified 07/27/23 08:06 oseltamivir Allergy Unknown Unknown Verified 07/27/23 08:06 Penicillins Allergy Unknown Unknown Verified 07/27/23 08:06 Sulfa (Sulfonamide Allergy Unknown Unknown Verified 07/27/23 08:06 Antibiotics) Review of Systems Review of Systems: All systems reviewed & are unremarkable except as noted in HPI and below PMFSH Past Medical History Medical History (Updated 07/27/23 @ 08:12 by Jim Garza MD) Allergic dermatitis Asthma Basal cell carcinoma BMI greater than 40 Chronic diarrhea Chronic pain disorder Degenerative disc disease Depression Diabetes 1.5, managed as type 2 Essential (primary) hypertension Fibromyalgia Generalized anxiety disorder GERD without esophagitis Hepatic steatosis History of bruising easily History of kidney stones History of stress test Hyperlipemia, mixed Hypothyroidism Irritable bowel syndrome with diarrhea Lumbar back pain with radiculopathy affecting right lower extremity Lumbar disc disease Morbid (severe) obesity due to excess calories Morbid obesity Nodule of right lung Obesity, unspecified Obstructive sleep apnea (adult) (pediatric) Likely obstructive sleep apnea however patient has not have polysomnogram Other asthma Restless leg syndrome Right arm numbness Right rotator cuff tendinitis RLS (restless legs syndrome) Suspected sleep apnea Tinea pedis of both feet Type 2 diabetes mellitus with diabetic neuropathy Type 2 diabetes mellitus with other specified complication Ulnar neuropathy at elbow Urinary incontinence in female Surgical History Surgical History (Updated 05/12/23 @ 14:41 by Sam Delgado MD) H/O cervical spine surgery H/O colonoscopy with polypectomy History of appendectomy (~1980) History of carpal tunnel release (~1996) History of carpal tunnel surgery History of cholecystectomy (~1995) History of dental surgery History of discectomy (~2004) Cervical History of lithotripsy (~2001) History of total hysterectomy with bilateral salpingo-oophorectomy (BSO) (~1980) Hx of sinus surgery (~1997) Hx of tonsillectomy (~1961) Family History Family History Father Hypertension Cerebrovascular accident Family history of suicide, Onset Age: 72 Mother Dec
[2023-07-27] MEDS: HYDROcodone/acetaminophen (*CRX) 5-325 MG TABLET 1 TAB PO ×2 (07:05→08:15)
--- NOTE | 2023-07-27 07:08 | PC.NURSE ---
Report to KARENA English.
[2023-07-27 07:22] LABS: Basophils Percent Auto 0.4 % (0.2-1.2); Eosinophils Absolute Auto 0.1 K/mm3 (0-0.3); Eosinophils Percent Auto 1.3 % (0-4.4); Hematocrit 40.2 % (37.0-47.0); Hemoglobin 12.6 g/dL (12.0-15.0); Immature Granulocyte Absolute 0.04 K/mm3 (0.00-0.031); Immature Granulocyte Percent A 0.4 % (0-0.5); Lymphocytes Absolute Auto 3.29 K/mm3 (0.9-3.2); Mean Corpuscular HGB Conc 31.3 g/dl (32-36); Mean Corpuscular Hemoglobin 26.4 pg (26-34); Mean Corpuscular Volume 84.1 fl (80-100); Mean Platelet Volume 12.8 fl (7.4-10.4); Monocytes Absolute Auto 0.7 K/mm3 (0.1-0.6); Monocytes Percent Auto 7.1 % (2.6-8.5); Neutrophils Absolute Auto 5.5 K/mm3 (1.3-6.7); Neutrophils Percent Auto 56.8 % (45.5-73.1); Platelet Count Result 167 k/mm3 (150-375); Red Blood Count 4.78 M/mm3 (4.2-5.4); Red Cell Distribution Width 14.6 % (11.5-14.5); White Blood Count 9.7 K/mm3 (4.5-10.0)
[2023-07-27 07:31] LABS: Alanine Aminotransferase 18 U/L (6-35); Albumin Level 3.8 g/dL (3.5-5.1); Alkaline Phosphatase 110 U/L (38-126); Anion Gap 9 mmol/L (8-16); Aspartate Amino Transferase 19 U/L (14-36); Bilirubin,Total 0.4 mg/dL (0.2-1.3); Blood Urea Nitrogen 10 mg/dL (7-17); Calcium 9.1 mg/dL (8.4-10.2); Carbon Dioxide 24 mmol/L (22-30); Chloride 101 mmol/L (98-107); Creatine Kinase 59 U/L (30-135); Estimated CRCL calculation 71 ml/min; Estimated Glomerular Filt Rate > 60; Glucose 307 mg/dL (65-110); Potassium 4.2 mmol/L (3.4-5.0); Sodium 134 mmol/L (137-145)
[2023-07-27] MEDS: LORazepam (*CRX) 1 MG TABLET PO (07:51)
[2023-07-27 07:54] VITALS: BP 147/78; PULSE 93; RESP 16; O2SAT 97
== END 2023-07-27 08:22 | disposition home or self-care (01) ==
PROVIDERS: Emergency Provider Emergency Medicine; PCP Family Medicine
DX: G25.81 Restless legs syndrome (principal); J45.909 Unspecified asthma, uncomplicated; I10 Essential (primary) hypertension; E13.40 Other specified diabetes mellitus with diabetic neuropathy, unspecified; E78.2 Mixed hyperlipidemia; E66.01 Morbid (severe) obesity due to excess calories; Z68.41 Body mass index [BMI] 40.0-44.9, adult; M79.7 Fibromyalgia; K21.9 Gastro-esophageal reflux disease without esophagitis; G47.33 Obstructive sleep apnea (adult) (pediatric); F32.A Depression, unspecified; Z87.442 Personal history of urinary calculi; Z90.49 Acquired absence of other specified parts of digestive tract; Z90.710 Acquired absence of both cervix and uterus; Z90.722 Acquired absence of ovaries, bilateral; Z90.79 Acquired absence of other genital organ(s); Z77.22 Contact with and (suspected) exposure to environmental tobacco smoke (acute) (chronic); Z79.4 Long term (current) use of insulin; Z79.84 Long term (current) use of oral hypoglycemic drugs
CPT/HCPCS: 36415; 80053; 82550; 85025; 99283; A9270

== ENCOUNTER 2023-09-05 16:30 | Emergency (ER) | payer MEDICARE, SELFPAY ==
[2023-09-05 16:31] VITALS: BP 182/83; PULSE 99; RESP 16; TEMP 36.8; O2SAT 99
--- NOTE | 2023-09-05 18:52 | PC.NURSE ---
pt states she is going to go home.
--- NOTE | 2023-09-05 20:31 | PC.NURSE ---
Patient did not answer page to go to room
== END 2023-09-05 21:21 | disposition left against medical advice (07) ==
PROVIDERS: PCP Family Medicine
DX: K59.00 Constipation, unspecified (principal)
CPT/HCPCS: 99199

== ENCOUNTER 2023-11-25 14:52 | Inpatient (IN) | payer MEDICARE, SELFPAY ==
[2023-11-25] VITALS (22 sets, daily range): BP systolic 84–121; BP diastolic 51–87; PULSE 57–91; RESP 12–25; TEMP 36.1–36.3; O2SAT 92–100
--- NOTE | ~2023-11-25 | CT_ITS ---
EXAMINATION: CTA brain carotid DATE: 11/25/2023 18:29 INDICATION: ams, slurred speech, lethargy TECHNIQUE: Computed tomographic angiography (CTA) of the head and neck was performed with 100 mL Omni paque-350 intravenous contrast. Automated exposure control and iterative reconstruction technique wer e employed. The dose-length product was 970.19 mGy-cm. Maximum intensity projection and volume rende red 3D-reconstructions were created by the technologist on a separate workstation. COMPARISON: CT brain, same date. FINDINGS: CTA HEAD: No large vessel occlusion, aneurysm, high flow vascular malformation, nidus or extravasation. Hypopla stic bilateral P1 segments with dominant flow coming from the bilateral posterior to indicating arter ies. CTA NECK: Aortic arch and proximal great vessels: Atherosclerotic calcifications at the visualized aortic arch and proximal great vessels. Moderate stenosis of the left subclavian artery origin. Moderate short se gment stenosis at the origin of the left vertebral artery. Patent cerebral veins. Symmetric parenchym al enhancement. Right common carotid, carotid bifurcation, and internal carotid artery: Moderate calcified and noncal cified plaque at the bifurcation and carotid bulb.There is 17% stenosis of the proximal right interna l carotid artery relative to normal distal artery lumen diameter (NASCET criteria). Left common carotid, carotid bifurcation, and internal carotid artery: Atherosclerosis-descibe if com plex features:No significant moderate calcified and noncalcified plaque at the bifurcation and caroti d bulb.There is 0% stenosis of the proximal left internal carotid artery relative to normal distal ar maggie lumen diameter (NASCET criteria). Vertebral arteries: No significant plaque or stenosis. Vertebral arteries co-dominant. Other findings: None. IMPRESSION: No large vessel intracranial occlusion, high-grade intracranial stenosis, or aneurysm. No carotid or vertebral artery occlusion, dissection, or significant stenosis. Reviewed, dictated and finalized at location K. IMPRESSION: No large vessel intracranial occlusion, high-grade intracranial stenosis, or an eurysm. No carotid or vertebral artery occlusion, dissection, or significant stenosis.
--- NOTE | ~2023-11-25 | CT_ITS ---
EXAMINATION: CT brain wo con DATE: 11/25/2023 15:48 INDICATION: ams . TECHNIQUE: Computed tomography (CT) of the head was performed without 06/28/2022 intravenous contrast . The mA was adjusted according to patient size. Iterative reconstruction technique was employed. The dose-length product was 605.33 mGy-cm. COMPARISON: None. FINDINGS: No acute intracranial hemorrhage or extra-axial fluid collection. No hydrocephalus, mass, or herniation. No acute ischemic infarct. Unremarkable dural venous sinus attenuation. No acute osseous abnormality. The aerated spaces are clear. Mild atrophy and chronic white matter change. Atherosclerotic intracranial calcification. Bilateral l ens replacements. IMPRESSION: No acute intracranial process. Reviewed, dictated and finalized at location K.
--- NOTE | ~2023-11-25 | MR_ITS ---
EXAMINATION: MR lumbar spine wo con DATE: 11/27/2023 17:20 INDICATION: Left sided weakness. TECHNIQUE: Magnetic resonance imaging (MRI) of the lumbar spine was performed without intravenous con trast. Sequences included sagittal T2-weighted FSE, sagittal T2-weighted FS FSE, sagittal T1-weighted FSE, and axial T2-weighted FSE. COMPARISON: Lumbar spine MRI 03/18/2022 FINDINGS: There is 8 degrees levocurvature of lumbar spine. Vertebral body heights are normal. There are hemangiomas in L2 and L3 vertebral bodies. There is mildly decreased disc height at L4-L5. The di stal spinal cord signal intensity is normal. The conus medullaris is at L1. The following disc levels are specifically discussed: L1-L2: The disc is bulging. There is mild bilateral facet joint osteoarthritis. There is mild bilater al neural foraminal stenosis. There is mild central canal stenosis. L2-L3: The disc is bulging. There is severe right and moderate left facet joint osteoarthritis. There is mild bilateral neural foraminal stenosis. There is mild central canal stenosis. L3-L4: The disc is bulging. There is severe bilateral facet joint osteoarthritis. There is mild bilat eral neural foraminal stenosis. There is mild central canal stenosis. L4-L5: The disc is bulging. There is severe bilateral facet joint osteoarthritis. There is mild bilat eral neural foraminal stenosis. There is mild central canal stenosis. L5-S1: The disc is bulging. There is severe bilateral facet joint osteoarthritis. There is mild bilat eral neural foraminal stenosis. There is mild central canal stenosis. IMPRESSION: 1. Mild lumbar spondylosis, stable from 03/18/2022. Reviewed, dictated and finalized at location E.
--- NOTE | ~2023-11-25 | MR_ITS ---
EXAMINATION: MR brain/brain stem wo con DATE: 11/27/2023 17:20 INDICATION: Altered mental status and left-sided weakness. TECHNIQUE: Magnetic resonance imaging (MRI) of the brain and brainstem was performed without intraven ous contrast. Sequences included sagittal and axial T1-weighted SE, axial diffusion-weighted FS SE, a xial T2*-weighted GRE, axial 3D SWAN, axial T2-weighted FLAIR, and axial T2-weighted FSE. Apparent di ffusion coefficient (ADC) maps were created. COMPARISON: Head CT and CT angiogram dated 11/25/2023 FINDINGS: There are no areas of restricted diffusion to suggest acute infarction. No intracranial hemorrhage or abnormal intracranial mass lesion. There are no intraparenchymal signal abnormalities seen on the ot her pulse sequences. The ventricles are symmetric and normal in size. There are no abnormal extra-axi al fluid collections. Flow voids are seen in the cerebral arteries on the T2-weighted sequences consi stent with their expected patency. Changes of bilateral intraocular lens replacement. Visualized orb its and soft tissues are unremarkable. There are no areas of abnormal enhancement on the post contras t images. IMPRESSION: 1. Unremarkable brain MRI. No acute intracranial process. Reviewed, dictated and finalized at location A.
--- NOTE | ~2023-11-25 | CT_ITS ---
EXAMINATION: CT abdomen pelvis w con DATE: 11/25/2023 16:43 INDICATION: L lower back pain, ams TECHNIQUE: Computed tomography (CT) of the abdomen and pelvis was performed with 100 mL Omnipaque-350 intravenous contrast. Automated exposure control and iterative reconstruction technique were employe d. The dose-length product was 1358.59 mGy-cm. COMPARISON: 06/27/2022. FINDINGS: Lower thorax: Coronary artery calcification. Dependent scar/atelectasis. Liver: Diffusely low density liver parenchyma. Biliary/Gallbladder: Gallbladder is absent. Mildly dilated common bile duct likely secondary to age a nd cholecystectomy change. Pancreas: No mass or duct dilation. Spleen: Normal. Adrenals:No mass. Kidneys: No suspicious mass, obstructing stone, or hydronephrosis. Punctate nonobstructing right katie l calculi. GI tract: Mild distal esophageal and gastric wall edema. Segmental mid sigmoid wall thickening with m ild surrounding inflammatory change/fluid and an inflamed diverticulum. No adjacent gas collection. N o rim-enhancing fluid collection to suggest abscess. No small or large bowel dilation. Normal appendi x. Mesentery/Peritoneum: No ascites, mass, or free air. Retroperitoneum: No mass. Atherosclerotic abdominal aortic and/or arterial calcifications. Pelvis: Mild stranding about the urinary bladder. Absent uterus. Normal left ovary. Right ovary not c onfidently identified.. Soft Tissues: Soft tissues and body wall unremarkable. Bones: No acute osseous finding. IMPRESSION: Mild esophagitis/gastritis. Hepatic steatosis. Acute uncomplicated sigmoid diverticulitis. Mild bladder wall inflammation may be related to cystitis or reactive inflammatory change. Reviewed, dictated and finalized at location K. IMPRESSION: Mild esophagitis/gastritis. Hepatic steatosis. Acute uncomplicated sigmoid diverticulitis. Mild bladder wall inflammation may be related to cystitis or reactive inflammat ory change.
--- NOTE | ~2023-11-25 | XR_ITS ---
EXAMINATION: XR chest 2V Exam Date/Time: 11/25/2023 15:50 CDT HISTORY: ams Comparison: 06/27/2022. RESULT: Lines, tubes, and devices: ACDF hardware. Lungs and pleura: Low volumes with crowding. No focal consolidation, pleural effusion, or pneumothor ax. Cardiomediastinal silhouette: Stable. Other: No acute osseous or upper abdominal finding. IMPRESSION: No acute cardiopulmonary process. Reviewed, dictated and finalized at location K.
--- NOTE | ~2023-11-25 | MR_ITS ---
EXAMINATION: MR cervical spine wo con DATE: 11/27/2023 17:20 INDICATION: Left-sided weakness. TECHNIQUE: Magnetic resonance imaging (MRI) of the cervical spine was performed without intravenous c ontrast. COMPARISON: Cervical spine MRI 10/18/2012 FINDINGS: There is mild kyphosis of cervical spine. Vertebral body heights are normal. There are sol ges of anterior fusion procedure from C5 to C7 with anterior plate and screws. There is moderately de creased disc height at C3-C4 and mildly decreased disc height at C4-C5. There is chronic increased T2 -weighted signal intensity in the spinal cord at C5-C6 on the right, consistent with myelomalacia. Th e following disc levels are specifically discussed: C2-C3: The disc does not extend beyond the endplate margin. There is no uncovertebral joint osteoarth ritis. There is severe bilateral facet joint osteoarthritis. There is mild bilateral neural foraminal stenosis. There is no central canal stenosis. C3-C4: The disc is bulging. There is severe bilateral uncovertebral joint osteoarthritis. There is se khari bilateral facet joint osteoarthritis. There is moderate bilateral neural foraminal stenosis. The re is moderate central canal stenosis with ventral and dorsal indentation of the spinal cord. C4-C5: There is a left central extrusion. There is severe bilateral uncovertebral joint osteoarthriti s. There is severe right and moderate left facet joint osteoarthritis. There is mild bilateral neural foraminal stenosis. There is mild central canal stenosis. C5-C6: There is mild bilateral uncovertebral joint hypertrophy. There is moderate bilateral facet analy nt osteoarthritis. There is mild bilateral neural foraminal stenosis. There is no central canal steno sis. C6-C7: There is mild bilateral uncovertebral joint hypertrophy. There is moderate bilateral facet analy nt hypertrophy. There is mild bilateral neural foraminal stenosis. There is no central canal stenosis . C7-T1: The disc does not extend beyond the endplate margin. There is mild bilateral uncovertebral analy nt osteoarthritis. There is severe bilateral facet joint osteoarthritis. There is mild bilateral neur al foraminal stenosis. There is no central canal stenosis. IMPRESSION: 1. Moderate cervical spondylosis, worsened from 10/18/2012. 2. Anterior fusion procedure from C5 to C7. 3. Chronic myelomalacia at C5-C6. Reviewed, dictated and finalized at location E.
--- NOTE | 2023-11-25 15:00 | ECG_ITS ---
Measurements Intervals [place] Rate: 57 P: 43 TN: 140 QRS: -7 QRSD: 91 T: 87 QT: 423 QTc: 415 Interpretive Statements SINUS BRADYCARDIA DELAYED PRECORDIAL R/S TRANSITION CONSIDER INFERIOR INFARCT, AGE INDETERMINATE BORDERLINE T WAVE ABNORMALITY- HIGH LATERAL LEADS ABNORMAL ECG COMPARED TO ECG 06/27/2022 13:06:54 NO SIGNIFICANT CHANGES Electronically Signed On 11-26-2023 7:33:16 CDT by Alvarez Nunes D.O.
[2023-11-25 15:23] LABS: Basophils Percent Auto 0.3 % (0.2-1.2); Eosinophils Absolute Auto 0.2 K/mm3 (0-0.3); Eosinophils Percent Auto 1.7 % (0-4.4); Hematocrit 43.5 % (37.0-47.0); Hemoglobin 13.7 g/dL (12.0-15.0); Immature Granulocyte Absolute 0.07 K/mm3 (0.00-0.031); Immature Granulocyte Percent A 0.7 % (0-0.5); Lymphocytes Percent Auto 40.4 % (18.3-44.2); Mean Corpuscular HGB Conc 31.5 g/dl (32-36); Mean Corpuscular Hemoglobin 26.4 pg (26-34); Mean Platelet Volume 10.2 fl (7.4-10.4); Monocytes Absolute Auto 0.5 K/mm3 (0.1-0.6); Neutrophils Percent Auto 51.9 % (45.5-73.1); Platelet Count Result 257 k/mm3 (150-375); Red Blood Count 5.18 M/mm3 (4.2-5.4); Red Cell Distribution Width 15.8 % (11.5-14.5); White Blood Count 9.7 K/mm3 (4.5-10.0)
[2023-11-25 15:31] LABS: Alanine Aminotransferase 12 U/L (6-35); Albumin Level 4.1 g/dL (3.5-5.1); Alkaline Phosphatase 101 U/L (38-126); Anion Gap 7 mmol/L (8-16); Aspartate Amino Transferase 16 U/L (14-36); Bilirubin,Total 0.5 mg/dL (0.2-1.3); Blood Urea Nitrogen 16 mg/dL (7-17); Carbon Dioxide 26 mmol/L (22-30); Chloride 103 mmol/L (98-107); Estimated CRCL calculation 75 ml/min; Estimated Glomerular Filt Rate > 60; Glucose 151 mg/dL (65-110); INR 0.9; Potassium 3.3 mmol/L (3.4-5.0); Prothrombin Time 12.8 Seconds (11.1-14.7); Sodium 136 mmol/L (137-145)
[2023-11-25 15:32] LABS: Partial Thromboplastin Time 24.8 Seconds (22.3-36.8)
[2023-11-25 15:37] LABS: Magnesium 1.7 mg/dL (1.6-2.3)
[2023-11-25 15:39] LABS: Glucose Point of Care 150 mg/dl (65-105)
[2023-11-25 15:40] LABS: Alveolar/Arterial O2 Gradient 36.5 mmHg; Carboxyhemoglobin 0.4 % THb (0-2.0); Fractional Inspired Oxygen 21 %; HCO3 ABG 23.5 mEq/l (22.0-26.0); Methemoglobin ABG 0.2 %THb (0-1.5); Oxygen Content ABG 17.6 %vol (16.0-22.0); Oxygen Saturation ABG 95.2 % (95.0-100.0); Oxyhemoglobin 93.9 % THb (90.0-100.0); PCO2 ABG 34.6 mmHg (35.0-45.0); PO2 ABG 71.8 mmHg (80.0-100.0); PO2 FiO2 Ratio Arterial Blood 3.42 %; Reduced Hemoglobin 5.5 %THb (0-5.0); Total Hemoglobin 13.3 g/dL (12.0-18.0); pH ABG 7.449 (7.350-7.450)
[2023-11-25 15:40] LABS: Lactic Acid Reflex 2.3 mmol/L (0.7-2.0)
[2023-11-25 15:41] LABS: Device ROOM AIR; Modified Allen's Test Pass; Site Drawn RIGHT RADIAL
[2023-11-25 15:48] LABS: NT Pro B Type Natriuretic Pept 117 pg/mL (19.9-100)
[2023-11-25 15:53] LABS: Influenza A QL RT-PCR Negative (Negative); Influenza B QL RT-PCR Negative (Negative); RSV RNA, RT-PCR Negative (Negative); SARS-CoV-2 RNA PCR Negative (Negative)
[2023-11-25 15:55] LABS: Beta-Hydroxybutyrate/Acetoacetate 0.08 mmol/L (0.02-0.27)
--- NOTE | 2023-11-25 15:55 | ED.AMS ---
HPI - Altered Mental Status General Chief Complaint: Altered Mental Status <Tammy Wilkins PA-C - Last Filed: 11/25/23 18:21> Stated Complaint: ams <Tammy Wilkins PA-C - Last Filed: 11/25/23 18:21> Time Seen by Provider: 11/25/23 15:07 <Tammy Wilkins PA-C - Last Filed: 11/25/23 18:21> Source: patient <Tammy Wilkins PA-C - Last Filed: 11/25/23 18:21> Mode of arrival: EMS <CONRADO Alatorre Last Filed: 11/25/23 18:21> Limitations: altered mental status and clinical condition <CONRADO Alatorre Last Filed: 11/25/23 18:21> History of Present Illness HPI narrative: Patient is a 68-year-old female, with pmh of CARMEN noncompliant with CPAP, RLS, IDDM, hypothyroidism, fibromyalgia, who presents to the ED via EMS with report of AMS. patient is able to answer my questions, but does appear very somnolent on exam, slurred speech noted. She complains of pain to her left lower back, intermittently radiating down her left leg. She does have history of sciatica. Family at bedside assisted in providing information. They report patient has been increasingly weak and fatigued over the last several months. They state she will often fall asleep mid sentence. They have not tried following up with PCP. She has been increasingly altered and lethargic today. They state she was unable to ambulate or dress herself due to weakness and confusion. Family also noticed patient to have slurred speech today which prompted them to call EMS. Daughter reports patient's BG was in the 400s earlier today. She was given 40 units of her insulin prior to arrival. <Tammy Wilkins PA-C - Last Filed: 11/25/23 18:21> Related Data Home Medications: Home Medications Medication Instructions Recorded Confirmed clobetasol 0.05 % topical cream 1 applic topical DAILY PRN 06/27/22 10/20/23 irritation nystatin 100,000 unit/gram topical 1 applic topical TID PRN Itching 06/27/22 10/20/23 powder omeprazole 20 mg capsule,delayed 20 mg PO DAILY PRN Heartburn 06/27/22 10/20/23 release triamcinolone acetonide 0.1 % 1 applic topical BID PRN Skin 06/27/22 10/20/23 topical cream Irritation empagliflozin 25 mg tablet 25 mg PO DAILY 05/12/23 10/20/23 (Jardiance) <Tammy Wilkins PA-C - Last Filed: 11/25/23 18:21> Allergies/Adverse Reactions: Allergies Allergy/AdvReac Type Severity Reaction Status Date / Time adhesive Allergy Unknown Unknown Verified 10/11/23 07:53 ciprofloxacin Allergy Unknown Unknown Verified 10/11/23 07:53 clarithromycin Allergy Unknown Unknown Verified 10/11/23 07:53 gabapentin Allergy Unknown Unknown Verified 10/11/23 07:53 metformin Allergy Unknown diarrhea Verified 10/11/23 07:53 neomycin Allergy Unknown Itching Verified 10/11/23 07:53 oseltamivir Allergy Unknown Unknown Verified 10/11/23 07:53 Penicillins Allergy Unknown Unknown Verified 10/11/23 07:53 Sulfa (Sulfonamide Allergy Unknown Unknown Verified 10/11/23 07:53 Antibiotics) <Tammy Wilkins PA-C - Last Filed: 11/25/23 18:21> Review of Systems Review of Systems: CONSTITUTIONAL: Denies fever, chills, or sweats. MUSCULOSKELETAL: See HPI. NEUROLOGIC: See HPI. <Tammy Wilkins PA-C - Last Filed: 11/25/23 18:21> ROS unobtainable: Yes unobtainable due to mental status <Tammy Wilkins PA-C - Last Filed: 11/25/23 18:21> PMFSH Past Medical History Medical History: Medical History Allergic dermatitis Asthma Basal cell carcinoma BMI greater than 40 Body mass index (BMI) of 40.1 to 44.9 in adult Chronic diarrhea Chronic pain disorder Degenerative disc disease Depression Diabetes 1.5, managed as type 2 Essential (primary) hypertension Fibromyalgia Generalized anxiety disorder GERD without esophagitis Hepatic steatosis History of bruising easily History of kidney stones Histor
[2023-11-25 16:12] LABS: Appearance Urine Clear (Clear); Color Urine Yellow (Yellow)
[2023-11-25 16:14] LABS: Add Urine Microscopic? NO; Bilirubin Urine Negative (Negative); Blood Urine Negative (Negative); Glucose Urine UA 3+ mg/dL (Negative); Ketones Urine Trace mg/dL (Negative); Leukocyte Esterase Ur Negative LEU/UL (Negative); Nitrate Urine Negative (Negative); Protein Urine Negative (Negative); Urobilinogen Urine 0.2 mg/dL (<2.0)
[2023-11-25 16:15] LABS: Amphetamine Screen Urine Negative (Negative); Barbiturate Screen Urine Negative (Negative); Benzodiazepines Screen Urine Positive (Negative); Cannabinoid Screen Urine Negative (Negative); Cocaine Screen Urine Negative (Negative); Methadone Screen Urine Negative (Negative); Opiate Screen Urine Negative (Negative); Phencyclidine Screen Urine Negative (Negative)
[2023-11-25 16:35] LABS: Ethanol < 10 mg/dL (<10)
[2023-11-25] MEDS: KCL 20 MEQ/SW 100 ML 100 ML 50 MEQ IVPB (16:53)
[2023-11-25] MEDS: SODIUM CHLORIDE 0.9% IV 1,000 ML 999 ML IV CONT ×2 (16:53→17:05)
[2023-11-25] MEDS: MAGNESIUM SULF 2 GM/WATER 50ML 2 GM/50 ML BAG IVPB (16:56)
[2023-11-25 18:04] LABS: Folic Acid 6.8 ng/mL (2.76->20)
[2023-11-25 18:28] LABS: Reflex Lactic Acid Yes or No Add Lactic
[2023-11-25] MEDS: metroNIDAZOLE 500 MG/ISO 100ML 500 MG/100 ML BAG 100 MG IVPB (18:37)
[2023-11-25 19:15] LABS: Lactic Acid 2.3 mmol/L (0.7-2.0)
--- NOTE | 2023-11-25 19:56 | PM.IMHP ---
H&P: HPI History of Present Illness Date/Time: 11/25/23 19:00 Chief Complaint: Confusion. Narrative: This is a pleasant 68-year-old female with hypertension, hyperlipidemia, insulin-dependent type 2 diabetes mellitus, hypothyroidism, pancreatitis, untreated obstructive sleep apnea, restless leg syndrome, and other comorbidities who presented to the emergency department for evaluation of confusion. She is alert and oriented x4 at the time my evaluation and is able to provide a good history. Her daughters provide additional information, with the patient's permission. Her unexpectedly approximately 5 months ago and she has been grieving his loss but she feels as though she is handling it quite well. Daughters report that her sleep seems to be disturbed and it is not unusual for her to sleep for 2 hours at a time before getting up. She has excessive daytime sleepiness and can fall asleep easily during the middle of conversations. She has periods of forgetfulness and sometime she does not remember conversations that she had with her daughters an hour prior. Her balance is not great and she has had several near falls. She holds onto ann and furniture when ambulating to prevent herself from falling. She is having intermittent tremors of the hands which she is unable to control. Her appetite has not been great for several days and she reports intermittent diarrhea and left-sided abdominal discomfort. This morning she once again seemed to be confused and required assistance dressing herself. Daughter became increasingly concerned as her speech was very slurred and difficult to understand which is somewhat of a new finding. She was given a L of normal saline and something to eat on arrival to the ED and she is awake, alert, and oriented x4 at the time of my evaluation. She denies headache, syncope, visual changes, facial droop, difficulty swallowing, focal weakness, paresthesias, fever, chills, sweats, cold and flu symptoms, chest and pleuritic pain, nausea, vomiting, dysuria, and incontinence. She has not had any recent change in medications and denies concerns for accidental overdose. If anything, she tends to miss some of her medications. She does not take her alprazolam daily. In the ED: She was afebrile on arrival. Blood pressure was as low as 84/51 but has improved after receiving 2 L normal saline bolus. Labs were significant for WBC count of 9.7, hemoglobin 13.7, sodium 136, potassium 3.3, lactic acid 2.3, BUN 16, creatinine 0.70, glucose 151. Urine was positive for 3+ glucose and trace ketones. Urine drug screen was positive for benzodiazepines. She tested negative for influenza, RSV, and COVID. Brain CT showed no acute intracranial process and CT of the head and neck was without significant findings. CT of the abdomen and pelvis showed findings of mild esophagitis/gastritis, acute uncomplicated sigmoid diverticulitis, mild bladder wall inflammation, and hepatic steatosis. Potassium was replaced and she was started on ceftriaxone and metronidazole for findings of diverticulitis. She is being admitted in this setting for further treatment and evaluation. Review of Systems Review of Systems: Twelve systems were reviewed and are negative except for as per HPI. [facility] Past Medical History Medical History (Updated 11/25/23 @ 22:37 by Juany Palencia PA-C) Allergic dermatitis Asthma Basal cell carcinoma Chronic diarrhea Chronic pain disorder Degenerative disc disease Depression Essential (primary) hypertension Fibromyalgia Generalized anxiety disorder GERD without esophagitis Hepatic steatosis History of kidney stones Hyperlipemia, mixed Hypothyroidism Irritable bowel syndrome with diarrhea Lichen sclerosus Obstructive sleep apnea (adult) (pediatric) Likely obstructive sleep apnea however patient has not have polysomnogram Restless leg syndrome Type 2 diabetes mellitus with diabetic neuropathy Ulnar neuropathy at elbow Urinary i
[2023-11-26] VITALS (13 sets, daily range): BP systolic 101–146; BP diastolic 57–83; PULSE 57–108; RESP 12–20; TEMP 36.1–36.4; O2SAT 94–100
[2023-11-26] MEDS: ACETAMINOPHEN 325 MG TABLET 650 MG PO
[2023-11-26] MEDS: atenoloL 25 MG TABLET 75 MG PO ×2 (00:01→21:45)
[2023-11-26] MEDS: SODIUM CHLORIDE 0.9% IV 1,000 ML 100 ML IV CONT (00:01)
[2023-11-26] MEDS: HYDROmorphone HCL INJ (*CRX) 1 MG/ML SYR IV PUSH ×5 (03:01→21:44)
[2023-11-26] MEDS: LEVOTHYROXINE SODIUM 75 MCG TABLET PO (05:40)
[2023-11-26] MEDS: metroNIDAZOLE 500 MG/ISO 100ML 500 MG/100 ML BAG 100 MG IVPB ×3 (05:40→21:46)
[2023-11-26 07:28] LABS: Hematocrit 40.1 % (37.0-47.0); Hemoglobin 12.1 g/dL (12.0-15.0); Mean Corpuscular HGB Conc 30.2 g/dl (32-36); Mean Corpuscular Hemoglobin 26.4 pg (26-34); Mean Corpuscular Volume 87.6 fl (80-100); Mean Platelet Volume 10.8 fl (7.4-10.4); Platelet Count Result 254 k/mm3 (150-375); Red Blood Count 4.58 M/mm3 (4.2-5.4); Red Cell Distribution Width 16.1 % (11.5-14.5); White Blood Count 10.9 K/mm3 (4.5-10.0)
[2023-11-26 07:45] LABS: Glucose Point of Care 229 mg/dl (65-105)
[2023-11-26 07:48] LABS: Anion Gap 7 mmol/L (8-16); Blood Urea Nitrogen 13 mg/dL (7-17); Calcium 8.3 mg/dL (8.4-10.2); Carbon Dioxide 19 mmol/L (22-30); Chloride 110 mmol/L (98-107); Estimated CRCL calculation 75 ml/min; Estimated Glomerular Filt Rate > 60; Glucose 232 mg/dL (65-110); Magnesium 1.9 mg/dL (1.6-2.3); Potassium 4.6 mmol/L (3.4-5.0); Sodium 136 mmol/L (137-145)
[2023-11-26] MEDS: DULoxetine HCL 60 MG CAPSULE.DR 120 MG PO (09:12)
[2023-11-26] MEDS: GLIMEPIRIDE 2 MG TABLET 4 MG PO (09:12)
[2023-11-26] MEDS: PREGABALIN (*CRX) 75 MG CAPSULE PO ×2 (09:12)
[2023-11-26] MEDS: EMPAGLIFLOZIN 25 MG TABLET PO (09:12)
[2023-11-26] MEDS: buPROPion HCL XL (24 HR) 150 MG TABCR PO (09:12)
[2023-11-26] MEDS: INSULIN ASPART (*BKC) 100 UNITS/ML SUB-Q (09:13)
[2023-11-26] MEDS: ENOXAPARIN 40 MG/0.4 ML SYRINGE SUB-Q (09:13)
[2023-11-26 11:21] LABS: Glucose Point of Care 160 mg/dl (65-105)
--- NOTE | 2023-11-26 14:28 | PM.IMPN ---
Progress Note: A&P Assessment and Plan (1) Insulin dependent type 2 diabetes mellitus: Code(s): E11.9 - Type 2 diabetes mellitus without complications; Z79.4 - [facility] (current) use of insulin Status: Acute (2) Obstructive sleep apnea: Code(s): G47.33 - Obstructive sleep apnea (adult) (pediatric) Status: Acute (3) Elevated lactic acid level: Code(s): R79.89 - Other specified abnormal findings of blood chemistry Status: Acute (4) Daytime hypersomnolence: Code(s): G47.19 - Other hypersomnia Status: Acute (5) Intermittent confusion: Code(s): R41.0 - Disorientation, unspecified Status: Acute (6) Lethargy: Code(s): R53.83 - Other fatigue Status: Acute (7) Slurred speech: Code(s): R47.81 - Slurred speech Status: Acute Plan 68-year-old female with a history of hypertension, hyperlipidemia, insulin-dependent type 2 diabetes mellitus, hypothyroidism, obesity, history of pancreatitis, CARMEN noncompliant with CPAP, restless leg syndrome, fibromyalgia, sciatica, chronic pain, depression, GERD, generalized anxiety disorder. Patient presents as noticed by family to be sleeping during the day and on able to be aroused. Reports she had slurred speech as well. Patient admitted on 11/24 for further evaluation and treatment. Do not think that the patient has any acute abnormalities that can be fixed in this hospital stay aside from diverticulitis which we will continue antibiotics for. An extensive discussion held with multiple family members in the room about the patient's possible just met disorder from her 's , her noncompliant with CPAP in all other medications and hyperglycemia, her use of multiple sedatives/polypharmacy. Plan will be as follows: Neurology consult pending Continue ceftriaxone and metronidazole Lovenox 40 mg subQ daily Continue Wellbutrin and duloxetine Continue sliding scale and Accu-Cheks. Continue glimepiride and Jardiance Continue ropinirole Continue levothyroxine Continue Xanax low-dose Add capsaicin cream Add lidocaine patch Discontinue Lyrica Counseled on CPAP use. Rubio patient to follow-up with pulmonology Advised patient to adhere to medical recommendations. Avoid CBD gummies. Follow-up TSH and B12 streetcar dispatcher consulted. Family would like to be present when the educators there. The patient lives alone. Check HbA1c She reports her chronic sciatica cause for her poor quality of life. Advised the patient she needs to be referred to a physical medicine and rehabilitation doctor or a pain doctor. Advised on lifestyle modification including weight loss. Monitor leukocytosis Trend lactic acid Patient has received fluid resuscitation for dehydration Full code Stable on medical floor Subjective Date/time seen: 11/26/23 14:28 Interval history: No acute overnight events. The patient complains of sciatica. She is lucid and her family is at bedside. Review of Systems Review of Systems: All systems reviewed & are unremarkable except as noted in HPI and below (Subjective) Exam Const: General: comfortable and no acute distress Other: A&O x4 Eyes: Pupils: Equal, round and reactive pupils present Neck: Neck: supple Resp: Effort & Inspection: normal respiratory effort Auscultation: clear to auscultation bilaterally Cardio: Rate: regular rate Rhythm: regular rhythm GI: GI Palp: Yes Soft to palpation and No Tenderness to palpation present (GI) Neuro: Motor exam (neuro): 5/5 motor strength present throughout Sensory Exam: normal sensation Other: Cranial nerves 2-12 grossly intact Extrem: General: no edema Objective Data Vital Signs Vital Signs: Vital Signs - 24 hr 11/25/23 14:54 11/25/23 14:57 11/25/23 15:00 Temperature 97.4 F L Pulse Rate 64 68 60 Respiratory Rate 25 H 19 21 H Blood Pressure 92/64 L Pulse Oximetry 100 Oxygen Delivery Room Air 11/25/23 15:
--- NOTE | 2023-11-26 14:54 | PC.NURSE ---
On 11/26/23, the BIOLOGY MANAGER, Sanjuanita, provided care and completed [facility] documentation on this patient. I have reviewed the BIOLOGY MANAGER's documentation and agree with the findings
[2023-11-26] MEDS: rOPINIRole HCL 1 MG TABLET PO ×2 (15:27→21:45)
[2023-11-26 16:34] LABS: Glucose Point of Care 159 mg/dl (65-105)
[2023-11-26 21:17] LABS: Glucose Point of Care 170 mg/dl (65-105)
[2023-11-26] MEDS: INSULIN GLARGINE (*BKC) 100 UNITS/ML 15 UNITS SUB-Q (21:42)
[2023-11-26] MEDS: CAPSAICIN 0.025% CREAM 60 GM TUBE 1 APPLIC TOPICAL (21:45)
[2023-11-27] VITALS (9 sets, daily range): BP systolic 113–152; BP diastolic 44–72; PULSE 56–93; RESP 16–20; TEMP 36.1–36.6; O2SAT 94–98; BMI 36.3
[2023-11-27] MEDS: HYDROmorphone HCL INJ (*CRX) 1 MG/ML SYR IV PUSH ×2 (03:50→11:00)
[2023-11-27] MEDS: LEVOTHYROXINE SODIUM 75 MCG TABLET PO (05:24)
[2023-11-27] MEDS: metroNIDAZOLE 500 MG/ISO 100ML 500 MG/100 ML BAG 100 MG IVPB ×3 (05:24→21:07)
[2023-11-27] MEDS: rOPINIRole HCL 1 MG TABLET PO ×3 (05:26→21:04)
[2023-11-27 06:47] LABS: Anion Gap 6 mmol/L (8-16); Blood Urea Nitrogen 15 mg/dL (7-17); Calcium 8.5 mg/dL (8.4-10.2); Carbon Dioxide 19 mmol/L (22-30); Chloride 109 mmol/L (98-107); Estimated CRCL calculation 75 ml/min; Estimated Glomerular Filt Rate > 60; Glucose 205 mg/dL (65-110); Potassium 4.6 mmol/L (3.4-5.0); Sodium 134 mmol/L (137-145)
[2023-11-27 07:09] LABS: Lactic Acid Reflex 1.2 mmol/L (0.7-2.0)
[2023-11-27 07:10] LABS: Procalcitonin 0.1 ng/mL
[2023-11-27 07:27] LABS: Glucose Point of Care 168 mg/dl (65-105)
[2023-11-27] MEDS: GLIMEPIRIDE 2 MG TABLET 4 MG PO (08:56)
[2023-11-27] MEDS: buPROPion HCL XL (24 HR) 150 MG TABCR PO (08:56)
[2023-11-27] MEDS: EMPAGLIFLOZIN 25 MG TABLET PO (08:57)
[2023-11-27] MEDS: LIDOCAINE 5% PATCH 1 PATCH TRANSDERM (08:57)
[2023-11-27] MEDS: ENOXAPARIN 40 MG/0.4 ML SYRINGE SUB-Q (08:57)
[2023-11-27] MEDS: DULoxetine HCL 60 MG CAPSULE.DR 120 MG PO (08:57)
[2023-11-27 08:59] LABS: Basophils Absolute Auto 0.1 K/mm3 (0.0-0.1); Basophils Percent Auto 0.5 % (0.2-1.2); Eosinophils Absolute Auto 0.2 K/mm3 (0-0.3); Eosinophils Percent Auto 2.2 % (0-4.4); Hematocrit 38.2 % (37.0-47.0); Hemoglobin 11.6 g/dL (12.0-15.0); Immature Granulocyte Absolute 0.07 K/mm3 (0.00-0.031); Immature Granulocyte Percent A 0.8 % (0-0.5); Lymphocytes Absolute Auto 3.45 K/mm3 (0.9-3.2); Lymphocytes Percent Auto 37.3 % (18.3-44.2); Mean Corpuscular HGB Conc 30.4 g/dl (32-36); Mean Corpuscular Hemoglobin 26.5 pg (26-34); Mean Corpuscular Volume 87.4 fl (80-100); Mean Platelet Volume 10.8 fl (7.4-10.4); Monocytes Absolute Auto 0.6 K/mm3 (0.1-0.6); Neutrophils Absolute Auto 4.9 K/mm3 (1.3-6.7); Neutrophils Percent Auto 53.2 % (45.5-73.1); Platelet Count Result 229 k/mm3 (150-375); Red Blood Count 4.37 M/mm3 (4.2-5.4); Red Cell Distribution Width 16.5 % (11.5-14.5); White Blood Count 9.3 K/mm3 (4.5-10.0)
[2023-11-27 11:23] LABS: Glucose Point of Care 160 mg/dl (65-105)
--- NOTE | 2023-11-27 13:31 | WPDNEURCNPN ---
Assessment and Plan Assessment and plan (1) Daytime hypersomnolence: Code(s): G47.19 - Other hypersomnia Status: Acute (2) Intermittent confusion: Code(s): R41.0 - Disorientation, unspecified Status: Acute (3) Obstructive sleep apnea: Code(s): G47.33 - Obstructive sleep apnea (adult) (pediatric) Status: Acute (4) Insulin dependent type 2 diabetes mellitus: Code(s): E11.9 - Type 2 diabetes mellitus without complications; Z79.4 - intermediate (current) use of insulin Status: Acute (5) Diverticulitis of sigmoid colon: Code(s): K57.32 - Diverticulitis of large intestine without perforation or abscess without bleeding Status: Acute Plan Inna Craig is a 68 year old female with a history of diabetes, CARMEN, fibromyalgia, HLD, RLS, hypothyroidism, anxiety, depression, presenting for evaluation of excessive somnolence and altered mental status. Seems likely to be multifactorial -- she takes Xanax PRN, is not compliant with her CPAP for CARMEN, and hyperglycemia. Also found to have diverticulitis which could be contributing as well. She is complaining of weakness/numbness in the LUE/LLE. Seems more likely spine related but will obtain MRI brain, in addition to MRI cervical spine and MRI lumbar spine. If the spine imaging shows chronic changes, she will need to follow-up with her spine doctor as outpatient. If any acute is seen on brain imaging, that will addressed accordingly. Consult date: 11/27/23 Reason for consult: Altered mental status HPI: Inna Craig is a 68 year old female with a history of diabetes, CARMEN, fibromyalgia, HLD, RLS, hypothyroidism, anxiety, depression, presenting for evaluation of altered mental status. Patient presented appearing to be somnolent, with slurred speech. In the ED, her glucose was elevated to 400s. She was AOx3 but somnolent. Her BP was 92/64-114/64. WBC was normal. TSH slightly elevated to 4.690. UA was not concerning for infection. She does take Xanax PRN. Her tox screen was positive for benzodiazepines. CT abdomen/pelvis showed evidence of uncomplicated diverticulitis. She was started on antibiotics and admitted. Her B12 is borderline low at 319. Patient does not use her CPAP due to discomfort with the mask. Blood sugars have improved but still elevated up to 200s. She is complaining of weakness/numbness/pain in the LUE and LLE. She has previously had cervical spine surgery. She has a history of lumbar radiculopathy, but has not had any surgery on lumbar spine. She received fentanyl this morning for back pain just prior to my evaluation. From a mental status standpoint, she appears to be close to her baseline. Review of Systems Review of Systems: All systems reviewed & are unremarkable except as noted in HPI and below PMFSH Past Medical History Medical History Allergic dermatitis Asthma Basal cell carcinoma Chronic diarrhea Chronic pain disorder Degenerative disc disease Depression Essential (primary) hypertension Fibromyalgia Generalized anxiety disorder GERD without esophagitis Hepatic steatosis History of kidney stones Hyperlipemia, mixed Hypothyroidism Irritable bowel syndrome with diarrhea Lichen sclerosus Obstructive sleep apnea (adult) (pediatric) Likely obstructive sleep apnea however patient has not have polysomnogram Restless leg syndrome Type 2 diabetes mellitus with diabetic neuropathy Ulnar neuropathy at elbow Urinary incontinence in female Surgical History Surgical History History of appendectomy (~1980) History of carpal tunnel surgery History of cervical discectomy History of cholecystectomy (~1995) History of colonoscopy with polypectomy History of dental surgery History of lithotripsy (~2001) History of sinus surgery History of tonsillectomy History of total hysterectomy with bilateral salpingo-oophorectomy (BSO)
--- NOTE | 2023-11-27 14:14 | PM.IMPN ---
Progress Note: A&P Assessment and Plan (1) Insulin dependent type 2 diabetes mellitus: Code(s): E11.9 - Type 2 diabetes mellitus without complications; Z79.4 - [facility] (current) use of insulin Status: Acute (2) Obstructive sleep apnea: Code(s): G47.33 - Obstructive sleep apnea (adult) (pediatric) Status: Acute (3) Elevated lactic acid level: Code(s): R79.89 - Other specified abnormal findings of blood chemistry Status: Acute (4) Daytime hypersomnolence: Code(s): G47.19 - Other hypersomnia Status: Acute (5) Intermittent confusion: Code(s): R41.0 - Disorientation, unspecified Status: Acute (6) Lethargy: Code(s): R53.83 - Other fatigue Status: Acute (7) Slurred speech: Code(s): R47.81 - Slurred speech Status: Acute Plan 68-year-old female with a history of hypertension, hyperlipidemia, insulin-dependent type 2 diabetes mellitus, hypothyroidism, obesity, history of pancreatitis, CARMEN noncompliant with CPAP, restless leg syndrome, fibromyalgia, sciatica, chronic pain, depression, GERD, generalized anxiety disorder. Patient presents as noticed by family to be sleeping during the day and unable to be aroused. Reports she had slurred speech as well. By the time she was admitted she was back to her baseline status. CT head and CTA head and neck on admission did not demonstrate acute abnormalities. Patient admitted on 11/24 for further evaluation and treatment. The patient otherwise has a multitude of other complaints which are all chronic. She complains of intermittent tremors of the hands along with intermittent tremors of the 1st and 2nd digits of the hands bilaterally at the same time. She reports her mother had Parkinson's disease. She thinks that this intermittent tremor has caused weakness although the weakness is isolated to the left arm and leg. Her only deficit on neurological exam is may be 4.5/5 strength of the left lower extremity. No sequela of Parkinson's. Briefly discussed with Dr. Rueda of Neurology today we will obtain a MRI noncontrast of the brain, C-spine and L-spine. Appreciate the complete Neurology recommendation later today. 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 Around the time of her hypersomnolence she was noted to have blood sugar in 400's as well. She was taking Xanax and Lyrica at home. Xanax has been restarted at a very low dose but Lyrica has been held. 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 She was also taking CBD gummies. She has been educated extensively. For her pain we will continue Tylenol and I have added a lidocaine patch and capsaicin cream. The patient does not seem to want to participate with rehab but she has been educated to try as narcotics and sedatives should be avoided. Also suggested if her pain continues to be uncontrolled he should seek out evaluation by PM&R or pain medicine doctor. She is also on Wellbutrin and duloxetine for her depression and fibromyalgia. Unclear if diverticulitis had a role to play in her altered mental status. CT abdomen pelvis with contrast demonstrating segmental mid sigmoid wall thickening and mild surrounding inflammatory change and inflamed diverticulum. Sepsis without shock technically present on admission with lactic acidosis and leukocytosis which is now resolved. Continue ceftriaxone and Flagyl today and transition to p.o. tomorrow if she is stable and still no evidence of sepsis. Continue Accu-Cheks and sliding scale. Continue levothyroxine Continue CPAP at night. Advised to follow with PCP and pulmonology. TSH high. It was not reflex to free T4 so we will check that now. Vitamin B12 within normal limits. FEN: Saline lock IV GI prophylaxis: Not indicated DVT prophyla
[2023-11-27 17:12] LABS: Glucose Point of Care 134 mg/dl (65-105)
[2023-11-27 20:32] LABS: Glucose Point of Care 141 mg/dl (65-105)
[2023-11-27] MEDS: atenoloL 25 MG TABLET 75 MG PO (21:04)
[2023-11-27] MEDS: ALPRAZolam (*CRX) 0.5 MG TABLET PO (21:05)
[2023-11-27] MEDS: INSULIN GLARGINE (*BKC) 100 UNITS/ML 15 UNITS SUB-Q (21:16)
[2023-11-27] MEDS: CYCLOBENZAPRINE HCL 5 MG TABLET PO (22:01)
[2023-11-27 22:06] LABS: Hemoglobin A1C 11.5 % (<5.7)
[2023-11-28] VITALS (8 sets, daily range): BP systolic 145–155; BP diastolic 70–85; PULSE 58–72; RESP 13–18; TEMP 36.1–36.3; O2SAT 96–100
--- NOTE | 2023-11-28 01:47 | PC.NURSE ---
Spoke with Dr. Ferguson at this time r/t chronic back pain. Cyclobenzoprine not effective. New order received for tramadol 50 mg PO once.
[2023-11-28] MEDS: traMADol HCL (*CRX) 50 MG TABLET PO ×2 (01:56→06:07)
--- NOTE | 2023-11-28 02:20 | PC.NURSE ---
2030 Patient comes out of room fully dressed in street clothes asking what am I supposed to be doing now. I asked patient if she knew where she was and she said in the hospital. She said she was going to go back upstairs where she was. I explained to patient that she has been in this same room since she got here. Patient then asked why she was in the hospital. I explained that she had been confused at home and was in a lot of pain, so her daughters brought here and that we were treating her with antibiotics for diverticulitis. Patient goes back to bed and called her daughter. Daughter called and I updated her on recent event. Daughter says that patient has been acting like this at home recently, but she seemed fine and oriented when she was visiting her today. I explained that patient has had some periods of confusion at night since she's been here, but has been easily re-oriented. All questions and concerns answered.
--- NOTE | 2023-11-28 05:49 | PC.NURSE ---
Spoke with Dr. Ferguson about patient asking for another pain med. New order received for tramadol 50 mg po once.
[2023-11-28] MEDS: LEVOTHYROXINE SODIUM 75 MCG TABLET PO (06:07)
[2023-11-28] MEDS: rOPINIRole HCL 1 MG TABLET PO ×3 (06:07→21:40)
[2023-11-28] MEDS: metroNIDAZOLE 500 MG/ISO 100ML 500 MG/100 ML BAG 100 MG IVPB ×3 (06:08→21:39)
[2023-11-28 07:06] LABS: Basophils Absolute Auto 0.1 K/mm3 (0.0-0.1); Basophils Percent Auto 0.7 % (0.2-1.2); Eosinophils Absolute Auto 0.2 K/mm3 (0-0.3); Eosinophils Percent Auto 2.2 % (0-4.4); Hematocrit 41.7 % (37.0-47.0); Hemoglobin 12.9 g/dL (12.0-15.0); Immature Granulocyte Absolute 0.08 K/mm3 (0.00-0.031); Immature Granulocyte Percent A 0.8 % (0-0.5); Lymphocytes Percent Auto 36.8 % (18.3-44.2); Mean Corpuscular HGB Conc 30.9 g/dl (32-36); Mean Corpuscular Hemoglobin 26.4 pg (26-34); Mean Corpuscular Volume 85.3 fl (80-100); Mean Platelet Volume 10.6 fl (7.4-10.4); Monocytes Absolute Auto 0.6 K/mm3 (0.1-0.6); Monocytes Percent Auto 5.6 % (2.6-8.5); Neutrophils Absolute Auto 5.6 K/mm3 (1.3-6.7); Neutrophils Percent Auto 53.9 % (45.5-73.1); Platelet Count Result 253 k/mm3 (150-375); Red Blood Count 4.89 M/mm3 (4.2-5.4); Red Cell Distribution Width 16.3 % (11.5-14.5); White Blood Count 10.3 K/mm3 (4.5-10.0)
[2023-11-28 07:34] LABS: Anion Gap 5 mmol/L (8-16); Blood Urea Nitrogen 17 mg/dL (7-17); Calcium 8.9 mg/dL (8.4-10.2); Carbon Dioxide 23 mmol/L (22-30); Chloride 107 mmol/L (98-107); Estimated CRCL calculation 86 ml/min; Estimated Glomerular Filt Rate > 60; Glucose 134 mg/dL (65-110); Potassium 4.1 mmol/L (3.4-5.0); Sodium 135 mmol/L (137-145)
[2023-11-28 07:53] LABS: Glucose Point of Care 133 mg/dl (65-105)
[2023-11-28 08:19] LABS: Free T4 Free Thyroxine 1.13 ng/mL (0.78-2.19)
[2023-11-28] MEDS: GLIMEPIRIDE 2 MG TABLET 4 MG PO (09:22)
[2023-11-28] MEDS: ACETAMINOPHEN 325 MG TABLET 650 MG PO (09:22)
[2023-11-28] MEDS: EMPAGLIFLOZIN 25 MG TABLET PO (09:23)
[2023-11-28] MEDS: DULoxetine HCL 60 MG CAPSULE.DR 120 MG PO (09:23)
[2023-11-28] MEDS: buPROPion HCL XL (24 HR) 150 MG TABCR PO (09:23)
[2023-11-28] MEDS: LIDOCAINE 5% PATCH 1 PATCH TRANSDERM (09:24)
[2023-11-28] MEDS: ENOXAPARIN 40 MG/0.4 ML SYRINGE SUB-Q (09:24)
[2023-11-28 11:38] LABS: Glucose Point of Care 188 mg/dl (65-105)
[2023-11-28] MEDS: HYDROcodone/acetaminophen (*CRX) 5-325 MG TABLET 1 TAB PO ×2 (12:18→21:39)
[2023-11-28] MEDS: MORPHINE SULFATE (*CRX) 4 MG/ML INJ IV PUSH (15:26)
--- NOTE | 2023-11-28 15:57 | PM.IMPN ---
Progress Note: A&P Assessment and Plan (1) Insulin dependent type 2 diabetes mellitus: Code(s): E11.9 - Type 2 diabetes mellitus without complications; Z79.4 - [facility] (current) use of insulin Status: Acute (2) Obstructive sleep apnea: Code(s): G47.33 - Obstructive sleep apnea (adult) (pediatric) Status: Acute (3) Elevated lactic acid level: Code(s): R79.89 - Other specified abnormal findings of blood chemistry Status: Acute (4) Daytime hypersomnolence: Code(s): G47.19 - Other hypersomnia Status: Acute (5) Intermittent confusion: Code(s): R41.0 - Disorientation, unspecified Status: Acute (6) Lethargy: Code(s): R53.83 - Other fatigue Status: Acute (7) Slurred speech: Code(s): R47.81 - Slurred speech Status: Acute Plan 68-year-old female with a history of hypertension, hyperlipidemia, insulin-dependent type 2 diabetes mellitus, hypothyroidism, obesity, history of pancreatitis, CARMEN noncompliant with CPAP, restless leg syndrome, fibromyalgia, sciatica, chronic pain, depression, GERD, generalized anxiety disorder. Patient presents as noticed by family to be sleeping during the day and unable to be aroused. Reports she had slurred speech as well. By the time she was admitted she was back to her baseline status. CT head and CTA head and neck on admission did not demonstrate acute abnormalities. Patient admitted on 11/24 for further evaluation and treatment. The patient otherwise has a multitude of other complaints which are all chronic. She complains of intermittent tremors of the hands along with intermittent tremors of the 1st and 2nd digits of the hands bilaterally at the same time. She reports her mother had Parkinson's disease. She thinks that this intermittent tremor has caused weakness although the weakness is isolated to the left arm and leg. Her only deficit on neurological exam is may be 4.5/5 strength of the left lower extremity. No sequela of Parkinson's. Briefly discussed with Dr. Rueda of Neurology today we will obtain a MRI noncontrast of the brain, C-spine and L-spine. Appreciate the complete Neurology recommendation later today. 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 Around the time of her hypersomnolence she was noted to have blood sugar in 400's as well. She was taking Xanax and Lyrica at home. Xanax has been restarted at a very low dose but Lyrica has been held. 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 She was also taking CBD gummies. She has been educated extensively. For her pain we will continue Tylenol and I have added a lidocaine patch and capsaicin cream. The patient does not seem to want to participate with rehab but she has been educated to try as narcotics and sedatives should be avoided. Also suggested if her pain continues to be uncontrolled he should seek out evaluation by PM&R or pain medicine doctor. She is also on Wellbutrin and duloxetine for her depression and fibromyalgia. Unclear if diverticulitis had a role to play in her altered mental status. CT abdomen pelvis with contrast demonstrating segmental mid sigmoid wall thickening and mild surrounding inflammatory change and inflamed diverticulum. Sepsis without shock technically present on admission with lactic acidosis and leukocytosis which is now resolved. Continue with IV ceftriaxone and Flagyl. Will transition to oral on discharge. Continue Accu-Cheks and sliding scale. Continue levothyroxine Continue CPAP at night. Advised to follow with PCP and pulmonology. TSH borderline high at 4.690, free T4 borderline low at 1.3. Increased levothyroxine to 88 mcg daily. Chronic low back: Patient started on tramadol without much help. Advanced to [place] 5/325 mg p.o. q.8 h
[2023-11-28 16:22] LABS: Glucose Point of Care 205 mg/dl (65-105)
[2023-11-28] MEDS: INSULIN ASPART (*BKC) 100 UNITS/ML SUB-Q (17:20)
[2023-11-28 20:36] LABS: Glucose Point of Care 187 mg/dl (65-105)
[2023-11-28] MEDS: ALPRAZolam (*CRX) 0.5 MG TABLET PO (21:40)
[2023-11-28] MEDS: atenoloL 25 MG TABLET 75 MG PO (21:40)
[2023-11-28] MEDS: INSULIN GLARGINE (*BKC) 100 UNITS/ML 15 UNITS SUB-Q (21:51)
[2023-11-29 05:13] VITALS: BP 134/71; PULSE 57; RESP 13; TEMP 36.3; O2SAT 97
[2023-11-29] MEDS: rOPINIRole HCL 1 MG TABLET PO ×2 (05:45→14:06)
[2023-11-29] MEDS: LEVOTHYROXINE SODIUM 88 MCG TABLET PO (05:45)
[2023-11-29] MEDS: metroNIDAZOLE 500 MG/ISO 100ML 500 MG/100 ML BAG 100 MG IVPB ×2 (05:45→14:06)
[2023-11-29 07:32] LABS: Basophils Absolute Auto 0.1 K/mm3 (0.0-0.1); Basophils Percent Auto 0.5 % (0.2-1.2); Eosinophils Absolute Auto 0.2 K/mm3 (0-0.3); Hematocrit 40.2 % (37.0-47.0); Hemoglobin 12.5 g/dL (12.0-15.0); Immature Granulocyte Absolute 0.09 K/mm3 (0.00-0.031); Lymphocytes Absolute Auto 3.38 K/mm3 (0.9-3.2); Lymphocytes Percent Auto 36.1 % (18.3-44.2); Mean Corpuscular HGB Conc 31.1 g/dl (32-36); Mean Corpuscular Hemoglobin 26.3 pg (26-34); Mean Corpuscular Volume 84.6 fl (80-100); Mean Platelet Volume 10.3 fl (7.4-10.4); Monocytes Absolute Auto 0.5 K/mm3 (0.1-0.6); Monocytes Percent Auto 5.7 % (2.6-8.5); Neutrophils Absolute Auto 5.1 K/mm3 (1.3-6.7); Neutrophils Percent Auto 54.7 % (45.5-73.1); Platelet Count Result 252 k/mm3 (150-375); Red Blood Count 4.75 M/mm3 (4.2-5.4); Red Cell Distribution Width 16.6 % (11.5-14.5); White Blood Count 9.4 K/mm3 (4.5-10.0)
[2023-11-29 07:50] LABS: Anion Gap 3 mmol/L (4-12); Blood Urea Nitrogen 14 mg/dL (7-17); Carbon Dioxide 27 mmol/L (22-30); Chloride 105 mmol/L (98-107); Estimated CRCL calculation 75 ml/min; Estimated Glomerular Filt Rate > 60; Glucose 129 mg/dL (65-110); Phosphorus 4.1 mg/dL (2.5-4.5); Potassium 3.9 mmol/L (3.4-5.0); Sodium 135 mmol/L (137-145)
[2023-11-29 08:05] LABS: Glucose Point of Care 107 mg/dl (65-105)
[2023-11-29] MEDS: HYDROcodone/acetaminophen (*CRX) 5-325 MG TABLET 1 TAB PO (09:14)
[2023-11-29] MEDS: ENOXAPARIN 40 MG/0.4 ML SYRINGE SUB-Q (09:14)
[2023-11-29] MEDS: GLIMEPIRIDE 2 MG TABLET 4 MG PO (09:14)
[2023-11-29] MEDS: DULoxetine HCL 60 MG CAPSULE.DR 120 MG PO (09:14)
[2023-11-29] MEDS: buPROPion HCL XL (24 HR) 150 MG TABCR PO (09:14)
[2023-11-29] MEDS: LIDOCAINE 5% PATCH 1 PATCH TRANSDERM (09:14)
[2023-11-29] MEDS: EMPAGLIFLOZIN 25 MG TABLET PO (09:15)
[2023-11-29 11:39] LABS: Glucose Point of Care 138 mg/dl (65-105)
--- NOTE | 2023-11-29 11:39 | WPDNEUROPN ---
Progress Note: A&P Time Spent With Patient Time with patient: 15 - 25 minutes Subjective Date/time seen: 11/29/23 11:39 Interval history: 68 years old right-handed female with multiple medical problems including diabetes mellitus, obstructive sleep apnea, fibromyalgia, hyperlipidemia, restless leg syndrome, hypothyroidism, anxiety with depression, admitted for excessive somnolence also poorly control of the pain she has been taking multiple medication initial documentation of non compliant with the CPAP . doing very well wants to find the pain medication which is not being provided by the family physician advised her the control of the pain medication will be under his care once she gets discharged from here, her MRI of cervical spine has documented moderate cervical spondylosis worsen from 214 to 013 and with anterior fusion procedure from C5-C7 and chronic myelomalacia at C5 and C6, multiple lumbar is spondylosis noted on the MRI of lumbosacral spine but MRI of the head is completely normal routine blood studies are not significant she will be followed by her family physician the control of the pain Objective Data Vital Signs Vital Signs: Vital Signs - 24 hr 11/28/23 14:00 11/28/23 20:00 11/28/23 20:53 Temperature 36.1 C L 36.1 C L Pulse Rate 66 69 71 Respiratory Rate 18 13 Blood Pressure 154/70 H 148/76 H 152/78 H Pulse Oximetry 97 98 99 Oxygen Delivery 11/28/23 20:53 11/28/23 21:32 11/28/23 20:00 Temperature 36.1 C L Pulse Rate 72 69 Respiratory Rate 13 Blood Pressure 148/70 H 148/76 H Pulse Oximetry 100 98 98 Oxygen Delivery Room Air 11/29/23 05:13 11/29/23 08:00 Temperature 36.3 C L Pulse Rate 57 L Respiratory Rate 13 Blood Pressure 134/71 Pulse Oximetry 97 Oxygen Delivery Room Air Intake/Output Intake/Output: Intake & Output 11/26/23 11/27/23 11/28/23 11/29/23 23:59 23:59 23:59 23:59 Intake Total 2078 2790 1936 990 Output Total 400 4400 2200 Balance 0769 -1610 -301 990 Meds/Results Medications: Active Medications Generic Name Dose Route Start Last Admin Trade Name Freq PRN Reason Stop Dose Admin Acetaminophen 650 mg 11/25/23 22:42 03/26/24 09:22 Acetaminophen 325 Mg Tablet PO 650 mg Q6H PRN Administration Mild Pain (1-3) or Fever Hydrocodone Bitart/Acetaminophen 1 tab 11/28/23 11:35 11/29/23 09:14 Hydrocodone/Acetaminophen (*Crx) 5-325 Mg Tablet PO 1 tab Q8H PRN Administration Pain Rated 4-6 Albuterol 2.5 mg 11/25/23 22:44 Albuterol Sulfate Neb 2.5 Mg/3 Ml Inh INHALATION Q4-6H PRN shortness of breath or wheezing Albuterol 2 puff 11/25/23 22:44 Albuterol Sulfate (*Sp) Aerosol 1 Puff INHALATION Q4H PRN Shortness Of Breath Alprazolam 0.5 mg 11/25/23 22:44 11/28/23 21:40 Alprazolam (*Crx) 0.5 Mg Tablet PO 0.5 mg BID PRN Administration anxiety Artificial Tears 1 drop 11/25/23 23:01 Artificial Tears Ophth Soln 15 Ml Bottle EACH EYE TID PRN dry eye(s) Atenolol 75 mg 11/25/23 21:00 11/28/23 21:40 Atenolol 25 Mg Tablet PO 75 mg HS RO Administration Bupropion HCl 150 mg 11/26/23 09:00 11/29/23 09:14 Bupropion Hcl Xl (24 Hr) 150 Mg Tabcr PO 150 mg QAM RO Administration Capsaicin 1 applic 11/26/23 22:00 11/29/23 05:08 Capsaicin 0.025% Cream 60 Gm Tube TOPICAL Not Given Q8HR RO Clobetasol Propionate 1 applic 11/25/23 22:44 Clobetasol Propionate 0.05% Cream 15 Gm TOPICAL DAILY PRN irritation Cyclosporine 1 drop 11/25/23 22:44 Cyclosporine 0.4 Ml Ophth Solution EACH EYE Q12H PRN Dry Eyes Dextrose 12.5 gm 11/25/23 22:42 Dextrose 50% 25 Gm/50 Ml Syringe IV PUSH PRN PRN Hypoglycemia Protocol Duloxetine HCl 120 mg 11/26/23 09:00 11/29/23 09:14 Duloxetine Hcl 60 Mg Capsule.Dr PO 120 mg DAILY RO Administration Empagliflozin 25 mg 11/26/23 09:00 11/29/23 09:15 Empagliflo
--- NOTE | 2023-11-29 13:57 | PM.DS ---
DS: Admitting Diagnosis Discharge Date 11/29/2023: Admitting Diagnosis (1) Insulin dependent type 2 diabetes mellitus: ?Code(s): E11.9 - Type 2 diabetes mellitus without complications; Z79.4 - skilled nursing (current) use of insulin ?Status:?Acute (2) Obstructive sleep apnea: ?Code(s): G47.33 - Obstructive sleep apnea (adult) (pediatric) ?Status:?Acute (3) Elevated lactic acid level: ?Code(s): R79.89 - Other specified abnormal findings of blood chemistry ?Status:?Acute (4) Daytime hypersomnolence: ?Code(s): G47.19 - Other hypersomnia ?Status:?Acute (5) Intermittent confusion: ?Code(s): R41.0 - Disorientation, unspecified ?Status:?Acute (6) Lethargy: ?Code(s): R53.83 - Other fatigue ?Status:?Acute (7) Slurred speech: ?Code(s): R47.81 - Slurred speech ?Status:?Acute DS: Discharge Diagnosis Discharge Diagnosis (1) Insulin dependent type 2 diabetes mellitus: Code(s): E11.9 - Type 2 diabetes mellitus without complications; 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 Status: Acute (2) Obstructive sleep apnea: Code(s): G47.33 - Obstructive sleep apnea (adult) (pediatric) Status: Acute (3) Daytime hypersomnolence: Code(s): G47.19 - Other hypersomnia Status: Acute (4) Intermittent confusion: Code(s): R41.0 - Disorientation, unspecified Status: Acute (5) Lichen sclerosus: Code(s): L90.0 - Lichen sclerosus et atrophicus Status: Acute (6) Lactic acidosis: Code(s): E87.20 - Acidosis, unspecified Status: Acute (7) Diverticulitis of sigmoid colon: Code(s): K57.32 - Diverticulitis of large intestine without perforation or abscess without bleeding Status: Acute (8) Type 2 diabetes mellitus with diabetic neuropathy: Qualifiers: Diabetes mellitus qualification engineer insulin use: without group home use Qualified Code(s): E11.40 - Type 2 diabetes mellitus with diabetic neuropathy, unspecified Code(s): E11.40 - Type 2 diabetes mellitus with diabetic neuropathy, unspecified Status: Chronic (9) Fibromyalgia: Code(s): M79.7 - Fibromyalgia Status: Chronic (10) Hyperlipemia, mixed: Code(s): E78.2 - Mixed hyperlipidemia Status: Chronic (11) Hypothyroidism: Qualifiers: Hypothyroidism type: unspecified Qualified Code(s): E03.9 - Hypothyroidism, unspecified Code(s): E03.9 - Hypothyroidism, unspecified Status: Chronic (12) RLS (restless legs syndrome): Code(s): G25.81 - Restless legs syndrome Status: Chronic (13) Vitamin D deficiency, unspecified: Code(s): E55.9 - Vitamin D deficiency, unspecified Status: Chronic (14) Anxiety and depression: Code(s): F41.9 - Anxiety disorder, unspecified; F32.9 - Major depressive disorder, single episode, unspecified Status: Chronic (15) Hyperlipidemia: Qualifiers: Hyperlipidemia type: unspecified Qualified Code(s): E78.5 - Hyperlipidemia, unspecified Code(s): E78.5 - Hyperlipidemia, unspecified Status: Chronic (16) Degenerative disc disease: Status: Chronic (17) Neuropathy: Code(s): G62.9 - Polyneuropathy, unspecified Status: Chronic (18) Anemia: Qualifiers: Anemia type: unspecified type Qualified Code(s): D64.9 - Anemia, unspecified Code(s): D64.9 - Anemia, unspecified Status: Chronic (19) Panic attacks: Code(s): F41.0 - Panic disorder [episodic paroxysmal anxiety] Status: Chronic (20) Iron deficiency: Code(s): E61.1 - Iron deficiency Status: Chronic (21) CARMEN (obstructive sleep apnea): Code(s): G47.33 - Obstructive sleep apnea (adult) (pediatric) Status: Chronic (22) Postmenopausal: Code(s): Z78.0 - Asymptomatic menopausal state Status: Acute (23) Primary localized osteoarthritis of both knees: Code(s
[2023-11-29 14:00] VITALS: BP 122/57; PULSE 65; RESP 18; TEMP 36; O2SAT 96
--- NOTE | 2023-12-04 15:28 | PCCDE ---
12/04/23 Reached patient by phone. Denies immediate questions. Stating BGs gotten into the mid'100's. FJ
== END 2023-11-29 14:50 | disposition home or self-care (01) | DRG 392 ==
LOC: ANHED 17:27 → ANH3MEDSUR 20:43
PROVIDERS: Emergency Medicine; General Practice; Physician Assistant; Admitting Provider Internal Medicine; Emergency Provider Physician Assistant; PCP Family Medicine; Visit Provider Family Medicine
DX: K57.32 Diverticulitis of large intestine without perforation or abscess without bleeding (principal); E87.21 Acute metabolic acidosis; R47.81 Slurred speech; I95.9 Hypotension, unspecified; G47.33 Obstructive sleep apnea (adult) (pediatric); E66.9 Obesity, unspecified; E03.9 Hypothyroidism, unspecified; E78.5 Hyperlipidemia, unspecified; I10 Essential (primary) hypertension; G25.81 Restless legs syndrome; M79.7 Fibromyalgia; K21.9 Gastro-esophageal reflux disease without esophagitis; F32.A Depression, unspecified; F41.1 Generalized anxiety disorder; R25.1 Tremor, unspecified; G47.19 Other hypersomnia; R91.1 Solitary pulmonary nodule; E55.9 Vitamin D deficiency, unspecified; E11.42 Type 2 diabetes mellitus with diabetic polyneuropathy; R32 Unspecified urinary incontinence; M19.90 Unspecified osteoarthritis, unspecified site; M50.30 Other cervical disc degeneration, unspecified cervical region; M51.36 Other intervertebral disc degeneration, lumbar region; K58.0 Irritable bowel syndrome with diarrhea; Z68.36 Body mass index [BMI] 36.0-36.9, adult; Z91.199 Patient's noncompliance with other medical treatment and regimen due to unspecified reason; Z85.828 Personal history of other malignant neoplasm of skin; Z87.442 Personal history of urinary calculi; Z90.49 Acquired absence of other specified parts of digestive tract; Z90.710 Acquired absence of both cervix and uterus; Z90.722 Acquired absence of ovaries, bilateral
CPT/HCPCS: 36415; 36600; 70450; 70496; 70498; 70551; 71046; 72141; 72148; 74177; 80048; 80053; 80307; 81003; 82010; 82375; 82607; 82746; 82805; 82948; 83036; 83050; 83605; 83735; 83880; 84100; 84145; 84439; 84443; 85025; 85027; 85610; 85730; 87040; 87637; 93005; 96365; 96366; 96367; 96368; 96372; 96375; 96376; 97161; 97165; 99285; A9270; G0378; J0696; J1170; J1650; J1815; J1836; J2270; J3475; J3480; J7030; Q9967

== ENCOUNTER 2024-01-23 13:00 | Outpatient (RCR) | payer MEDICARE, SELFPAY ==
[2024-01-23 12:58] VITALS: BMI 41.5
[2024-01-23 13:40] VITALS: BMI 41.5
== END 2024-03-18 09:10 | disposition home or self-care (01) ==
LOC: ANHDMC 13:00
PROVIDERS: PCP Family Medicine; Visit Provider Family Medicine
DX: E11.40 Type 2 diabetes mellitus with diabetic neuropathy, unspecified (principal); Z71.89 Other specified counseling; Z71.3 Dietary counseling and surveillance
CPT/HCPCS: 97802; G0108

== ENCOUNTER 2024-02-16 11:08 | Emergency (ER) | payer MEDICARE, SELFPAY ==
[2024-02-16 11:13] VITALS: BP 169/79; PULSE 116; RESP 20; TEMP 36.3; O2SAT 97
--- NOTE | 2024-02-16 11:52 | ED.GENADULT ---
HPI - General Adult General Chief complaint: Skin/Abscess/Foreign Body Stated complaint: sore spots on top of head/neck Time Seen by Provider: 02/16/24 11:26 History of Present Illness HPI narrative: Patient is a 68-year-old female who presents ER with to sores the top of her head. Right side. One at the right occipital condyle and 1 at the top of the head in the right side parietal region. No draining. Mild tenderness to touch. Mild swelling of lymph nodes behind the right ear. No vesicles or pustules. No known trauma. Patient is not had exposure to outdoor allergens. No itching or burning or tingling. Related Data Home Medications Medication Instructions Recorded Confirmed clobetasol 0.05 % topical cream 1 applic topical DAILY PRN 06/27/22 01/24/24 irritation nystatin 100,000 unit/gram topical 1 applic topical TID PRN Itching 06/27/22 01/24/24 powder triamcinolone acetonide 0.1 % 1 applic topical BID PRN Skin 06/27/22 01/24/24 topical cream Irritation empagliflozin 25 mg tablet 25 mg PO DAILY 05/12/23 01/24/24 (Jardiance) cyclosporine 0.05 % eye drops 1 drp EACH EYE Q12H PRN Dry Eyes 11/25/23 01/24/24 (Restasis MultiDose) cyclobenzaprine 10 mg tablet 10 mg PO ONCE 12/12/23 01/24/24 Allergies Allergy/AdvReac Type Severity Reaction Status Date / Time adhesive Allergy Unknown Unknown Verified 02/16/24 11:43 clarithromycin Allergy Unknown Unknown Verified 02/16/24 11:43 gabapentin Allergy Unknown Unknown Verified 02/16/24 11:43 metformin Allergy Unknown diarrhea Verified 02/16/24 11:43 neomycin Allergy Unknown Itching Verified 02/16/24 11:43 oseltamivir Allergy Unknown Unknown Verified 02/16/24 11:43 Penicillins Allergy Unknown Unknown Verified 02/16/24 11:43 Sulfa (Sulfonamide Allergy Unknown Unknown Verified 02/16/24 11:43 Antibiotics) latex Allergy Mild Hives Uncoded 02/16/24 11:43 Review of Systems Constitutional: Constitutional: Reports no additional constitutional complaints Integumentary/Breasts: Skin/Breast: Denies pruritus, Reports erythema, Denies rash and Reports skin ulcer PMFSH Past Medical History Medical History (Updated 02/16/24 @ 11:57 by Joe Mccollum MD) Allergic dermatitis Asthma Basal cell carcinoma Chronic diarrhea Chronic pain disorder Degenerative disc disease Degenerative disc disease, cervical Degenerative disc disease, lumbar Depression Diverticulitis of sigmoid colon Essential (primary) hypertension Fibromyalgia Forgetfulness Generalized anxiety disorder GERD without esophagitis Hepatic steatosis History of abnormal mammogram History of kidney stones Hyperlipemia, mixed Hypothyroidism Irritable bowel syndrome with diarrhea Lichen sclerosus Morbid (severe) obesity due to excess calories Nasal lesion Obstructive sleep apnea (adult) (pediatric) Likely obstructive sleep apnea however patient has not have polysomnogram Pain aggravated by physical activity Panic attacks Postmenopausal Renal cyst, left Restless leg syndrome Screening for osteoporosis Skin exam for malignant neoplasm Type 2 diabetes mellitus with diabetic neuropathy Ulnar neuropathy at elbow Urinary incontinence in female Surgical History Surgical History History of appendectomy (~1980) History of carpal tunnel surgery History of cervical discectomy History of cholecystectomy (~1995) History of colonoscopy with polypectomy History of dental surgery History of lithotripsy (~2001) History of sinus surgery History of tonsillectomy History of total hysterectomy with bilateral salpingo-oophorectomy (BSO) (~1980) Family History Family History Father Hypertension Cerebrovascular accident Family history of suicide, Onset Age: 72 Mother Family history of malignant neoplasm Family history of primary malignant neoplasm of liver, Onset Age: 50 Dec
[2024-02-16 12:15] VITALS: BP 151/74; PULSE 98; RESP 16; TEMP 36.5; O2SAT 98
== END 2024-02-16 12:16 | disposition home or self-care (01) ==
PROVIDERS: Emergency Provider Emergency Medicine; PCP Family Medicine
DX: L73.9 Follicular disorder, unspecified (principal); I10 Essential (primary) hypertension; E11.40 Type 2 diabetes mellitus with diabetic neuropathy, unspecified; E03.9 Hypothyroidism, unspecified; E78.2 Mixed hyperlipidemia; G47.33 Obstructive sleep apnea (adult) (pediatric); G25.81 Restless legs syndrome; K58.0 Irritable bowel syndrome with diarrhea; K21.9 Gastro-esophageal reflux disease without esophagitis; M79.7 Fibromyalgia; R32 Unspecified urinary incontinence; Z87.442 Personal history of urinary calculi; Z85.828 Personal history of other malignant neoplasm of skin; Z90.49 Acquired absence of other specified parts of digestive tract; Z90.710 Acquired absence of both cervix and uterus; Z90.722 Acquired absence of ovaries, bilateral; Z90.79 Acquired absence of other genital organ(s); Z79.84 Long term (current) use of oral hypoglycemic drugs
CPT/HCPCS: 99283

== ENCOUNTER 2024-02-28 13:47 | Outpatient (CLI) | payer MEDICARE, SELFPAY ==
--- NOTE | ~2024-02-28 | XR_ITS ---
EXAMINATION: XR_KNEE1-2VRT_CR, XR_KNEE1-2VLT_CR DATE: 02/28/2024 14:08 INDICATION: Bilateral knee pain TECHNIQUE: 1. AP and lateral views of the right knee were obtained. 2. AP and lateral views of the left knee were obtained.. COMPARISON: None. FINDINGS: Bone alignment is normal at both knees. No fracture. Mild joint space narrowing at the medial compart ment the right knee seen on the lateral projection. Remaining joint spaces appear normal. Small enthe sophytes at the inferior poles of the patellae and at the right anterior tibial tuberosity. Soft tiss ues are unremarkable with no knee joint effusions. IMPRESSION: 1. Mild osteoarthritis at the medial compartment of the right knee. No joint effusion or acute osseou s abnormality at either knee. Reviewed, dictated and finalized at location B. IMPRESSION: 1. Mild osteoarthritis at the medial compartment of the right knee. No joint ef fusion or acute osseous abnormality at either knee.
== END 2024-02-28 13:48 | disposition home or self-care (01) ==
LOC: ANHIMG 13:48
PROVIDERS: PCP Family Medicine; Visit Provider Nurse Practitioner Adult Health
DX: M25.562 Pain in left knee (principal); M17.11 Unilateral primary osteoarthritis, right knee
CPT/HCPCS: 73560

== ENCOUNTER 2024-04-30 02:09 | Day surgery (SDC) | payer MEDICARE, SELFPAY ==
[2024-03-14 14:33] VITALS: BMI 41.5
[2024-04-17 08:29] VITALS: BMI 41.5
[2024-04-30 13:19] VITALS: BP 148/86; PULSE 109; RESP 18; TEMP 36.2; O2SAT 98
[2024-04-30 13:22] LABS: Glucose Point of Care 231 mg/dl (65-105)
[2024-04-30] MEDS: LACTATED RINGERS 1,000 ML 150 ML IV CONT (13:30)
--- NOTE | 2024-04-30 14:03 | WPDANESEPPF ---
Anes - Initial Pre Proc Eval Procedure: Operation Date: 04/30/24 14:30 Proposed Procedures p Esophagogastroduodenoscopy & Colonoscopy - Stephen Royal MD Date/Time: 04/30/24 14:03 Surgeon: Stephen Royal MD Pre Op Diagnosis: Anorexia, GERD, Full incontinence of feces, Patient Data Age: 68 Gender: F Height: 1.52 m Weight: 92.2 kg Last Vital Signs Temp 97.2 F L 04/30/24 13:19 Pulse 109 H 04/30/24 13:19 Resp 18 04/30/24 13:19 BP 148/86 H 04/30/24 13:19 Pulse Ox 98 04/30/24 13:19 O2 Del Method Room Air 04/30/24 13:19 Allergies Allergy/AdvReac Type Severity Reaction Status Date / Time adhesive Allergy Unknown Unknown Verified 04/30/24 13:17 clarithromycin Allergy Unknown Unknown Verified 04/30/24 13:17 gabapentin Allergy Unknown Unknown Verified 04/30/24 13:17 metformin Allergy Unknown diarrhea Verified 04/30/24 13:17 neomycin Allergy Unknown Itching Verified 04/30/24 13:17 oseltamivir Allergy Unknown Unknown Verified 04/30/24 13:17 Penicillins Allergy Unknown Unknown Verified 04/30/24 13:17 Sulfa (Sulfonamide Allergy Unknown Unknown Verified 04/30/24 13:17 Antibiotics) latex Allergy Mild Hives Uncoded 04/17/24 08:23 Home Medications Medication Instructions Recorded Confirmed Type propylene glycol 0.6 % eye drops 1 drp EACH EYE TID PRN dry eye(s) 11/17/21 04/30/24 Rx (Systane Complete) #5 mL ondansetron HCl 4 mg tablet 4 mg PO Q8H PRN nausea and 11/25/21 04/30/24 Rx vomiting #30 tabs albuterol sulfate 90 mcg/actuation 2 puff inhalation Q4H PRN 03/08/22 04/30/24 Rx aerosol inhaler Shortness Of Breath #8.5 grams glimepiride 4 mg tablet 4 mg PO QAM #90 tabs 04/20/22 04/30/24 Rx clobetasol 0.05 % topical cream 1 applic topical DAILY PRN 06/27/22 04/30/24 History irritation nystatin 100,000 unit/gram topical 1 applic topical TID PRN Itching 06/27/22 04/30/24 History powder triamcinolone acetonide 0.1 % 1 applic topical BID PRN Skin 06/27/22 04/30/24 History topical cream Irritation blood-glucose meter (Accu-Chek #1 ea 07/06/22 04/17/24 Rx Guide Glucose Meter) pregabalin 75 mg capsule 75 mg PO BID #180 caps 05/01/23 04/30/24 Rx empagliflozin 25 mg tablet 25 mg PO DAILY 05/12/23 04/30/24 History (Jardiance) blood sugar diagnostic (Accu-Chek #100 ea 06/08/23 04/17/24 Rx Guide test strips) ropinirole 1 mg tablet 1 mg PO TID #270 tabs 10/10/23 04/30/24 Rx cyclosporine 0.05 % eye drops 1 drp EACH EYE Q12H PRN Dry Eyes 11/25/23 04/30/24 History (Restasis MultiDose) duloxetine 60 mg capsule,delayed 60 mg PO DAILY #180 caps 12/12/23 04/30/24 Rx release (Cymbalta) insulin lispro 100 unit/mL 1 sliding scale dose subcut .QAC 12/12/23 04/30/24 Rx subcutaneous pen #15 mL insulin glargine 100 unit/mL 15 unit (0.15 mL) subcut HS #30 mL 01/10/24 04/30/24 Rx subcutaneous solution omeprazole 40 mg capsule,delayed 40 mg PO DAILY #30 caps 01/22/24 04/30/24 Rx release atenolol 50 mg tablet 75 mg PO DAILY #90 tabs 01/24/24 04/30/24 Rx bupropion HCl 150 mg 24 hr tablet, 300 mg PO QAM #90 tabs 01/24/24 04/30/24 Rx extended release levothyroxine 88 mcg tablet 88 mcg PO DAILY #90 tabs 01/24/24 04/30/24 Rx albuterol sulfate 2.5 mg/3 mL 2.5 mg (3 mL) inhalation Q4-6H PRN 02/13/24 04/30/24 Rx (0.083 %) solution for nebulization shortness of breath or wheezing #75 mL atorvastatin 20 mg tablet 20 mg PO DAILY #30 tabs 03/08/24 04/30/24 Rx alprazolam 0.5 mg tablet 0.5 mg PO BID PRN anxiety #60 tabs 04/09/24 04/30/24 Rx Laboratory Tests 04/30/24 13:20 POC Capillary Glucose 231 H mg/dl (65-105) Patient hx anesthesia problems: none Family hx anesthesia problems: none Results Review: All pre-operative results and documents have been reviewed as part of the pre-operative evaluation. [facility] Past Medical History Medical History (Updated 02/17/24 @ 00:01 by Background Hemant) Allergic dermatitis Asthma Basal cell carcino
--- NOTE | 2024-04-30 14:04 | PM.HPGS ---
History of Present Illness History of Present Illness Consent: Risks, benefits, and alternatives have been discussed and questions answered. Patient agrees to proceed with procedure. Chief complaint: Anorexia, GERD, Full incontinence of feces, Narrative: Inna Craig is a 68 year old female here for egd and colonoscopy, she was in hospital June 2022 for diarrhea and had a colonoscopy 06/30/2022- no microscopic colitis, had TA polyps. She has lower abdominal pain that is crampy and intermittent in nature and improves with BM's. She has occasional nausea without vomiting, still with diarrhea. Review of Systems Review of Systems: All systems reviewed & are unremarkable except as noted in HPI and below PMFSH Past Medical History Medical History (Updated 02/17/24 @ 00:01 by Rey Marcos) Allergic dermatitis Asthma Basal cell carcinoma Chronic diarrhea Chronic pain disorder Degenerative disc disease Degenerative disc disease, cervical Degenerative disc disease, lumbar Depression Diverticulitis of sigmoid colon Essential (primary) hypertension Fibromyalgia Forgetfulness Generalized anxiety disorder GERD without esophagitis Hepatic steatosis History of abnormal mammogram History of kidney stones Hyperlipemia, mixed Hypothyroidism Irritable bowel syndrome with diarrhea Lichen sclerosus Morbid (severe) obesity due to excess calories Nasal lesion Obstructive sleep apnea (adult) (pediatric) Likely obstructive sleep apnea however patient has not have polysomnogram Pain aggravated by physical activity Panic attacks Postmenopausal Renal cyst, left Restless leg syndrome Screening for osteoporosis Skin exam for malignant neoplasm Type 2 diabetes mellitus with diabetic neuropathy Ulnar neuropathy at elbow Urinary incontinence in female Surgical History Surgical History History of appendectomy (~1980) History of carpal tunnel surgery History of cervical discectomy History of cholecystectomy (~1995) History of colonoscopy with polypectomy History of dental surgery History of lithotripsy (~2001) History of sinus surgery History of tonsillectomy History of total hysterectomy with bilateral salpingo-oophorectomy (BSO) (~1980) Family History Family History Father Hypertension Cerebrovascular accident Family history of suicide, Onset Age: 72 Mother Family history of malignant neoplasm Family history of primary malignant neoplasm of liver, Onset Age: 50 Liver cancer Grandparent Cerebrovascular accident Sibling Patient's brother is in good health Patient's sister is Other Diabetes mellitus Social History Social History Social History: Surrogate medical decision maker: Estefanía Gutierrez and Dalila Oconnor (daughters). Code status: Full code. Smoking status: Never smoker Second hand tobacco smoke exposure: Yes Alcohol intake: current Drinks per week: 1 Alcohol use details: Occasional Substance use: current Substance use type: does not use Other substance usage details: CBD Last use: cbd gummies Do You Feel Safe in your Home?: Yes Lack of Transportation: No Lack of Food: Never True Current Housing: I Have Housing Concerned About Future Housing: No Difficulty Paying Gas/Electric Bills: No Difficulty Paying for Meds: YES Currently Unemployed: YES Education: High School Diploma/GED Difficulty w/ Childcare or Family Care: No Living arrangements: alone Additional living arrangements comments: fall 2022. 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
--- NOTE | 2024-04-30 14:18 | SUR.OPER ---
EGD end time: 1410, Colonoscopy start time: 1417
[2024-04-30 14:33] VITALS: BP 121/61; PULSE 84; RESP 19; O2SAT 97
[2024-04-30 14:43] VITALS: BP 121/73; PULSE 84; RESP 17; O2SAT 99
[2024-04-30 14:53] VITALS: BP 122/69; PULSE 82; RESP 23; O2SAT 100
[2024-04-30 14:56] LABS: Glucose Point of Care 186 mg/dl (65-105)
== END 2024-04-30 15:02 | disposition home or self-care (01) ==
PROVIDERS: PCP Family Medicine; Referring Provider Nurse Practitioner Family; Visit Provider Internal Medicine Gastroenterology
PROC: 0DJ08ZZ Inspection of Upper Intestinal Tract, Via Natural or Artificial Opening Endoscopic (ICD-10-PCS; CPT 43235; principal; 2024-04-30 14:30)
DX: K29.50 Unspecified chronic gastritis without bleeding (principal); B96.81 Helicobacter pylori [H. pylori] as the cause of diseases classified elsewhere; D12.2 Benign neoplasm of ascending colon; K64.8 Other hemorrhoids; Z90.710 Acquired absence of both cervix and uterus; J45.909 Unspecified asthma, uncomplicated; I10 Essential (primary) hypertension; K21.9 Gastro-esophageal reflux disease without esophagitis; F41.8 Other specified anxiety disorders; E03.9 Hypothyroidism, unspecified; E66.01 Morbid (severe) obesity due to excess calories; Z68.39 Body mass index [BMI] 39.0-39.9, adult; E11.40 Type 2 diabetes mellitus with diabetic neuropathy, unspecified
CPT/HCPCS: 45380; 45385; 43239; 82948; 88305; 88342; J2001; J2704; J7120

== ENCOUNTER 2024-05-12 08:06 | Emergency (ER) | payer MEDICARE, SELFPAY ==
[2024-05-12 08:15] VITALS: BP 172/83; PULSE 84; RESP 20; TEMP 36.9; O2SAT 97
--- NOTE | 2024-05-12 09:22 | ED.GENADULT ---
HPI - General Adult General Chief complaint: Wound/Laceration Stated complaint: wound to top of head Time Seen by Provider: 05/12/24 09:06 History of Present Illness HPI narrative: Patient is a 60-year-old female who presents emergency department with chief complaint of wound on her scalp. Patient reported that she noticed several small bumps that appeared on her scalp several days ago reports that she then noticed there was some redness and swelling in the area patient states that hoang and itches. Related Data Home Medications Medication Instructions Recorded Confirmed clobetasol 0.05 % topical cream 1 applic topical DAILY PRN 06/27/22 04/30/24 irritation nystatin 100,000 unit/gram topical 1 applic topical TID PRN Itching 06/27/22 04/30/24 powder triamcinolone acetonide 0.1 % 1 applic topical BID PRN Skin 06/27/22 04/30/24 topical cream Irritation empagliflozin 25 mg tablet 25 mg PO DAILY 05/12/23 04/30/24 (Jardiance) cyclosporine 0.05 % eye drops 1 drp EACH EYE Q12H PRN Dry Eyes 11/25/23 04/30/24 (Restasis MultiDose) Allergies Allergy/AdvReac Type Severity Reaction Status Date / Time adhesive Allergy Unknown Unknown Verified 04/30/24 13:17 clarithromycin Allergy Unknown Unknown Verified 04/30/24 13:17 gabapentin Allergy Unknown Unknown Verified 04/30/24 13:17 metformin Allergy Unknown diarrhea Verified 04/30/24 13:17 neomycin Allergy Unknown Itching Verified 04/30/24 13:17 oseltamivir Allergy Unknown Unknown Verified 04/30/24 13:17 Penicillins Allergy Unknown Unknown Verified 04/30/24 13:17 Sulfa (Sulfonamide Allergy Unknown Unknown Verified 04/30/24 13:17 Antibiotics) latex Allergy Mild Hives Uncoded 04/17/24 08:23 Review of Systems Review of Systems: A 10 system review of systems was completed on the patient and is negative except for what is stated in the HPI. Nursing and ancillary documentation was reviewed. [facility] Past Medical History Medical History Allergic dermatitis Asthma Basal cell carcinoma Chronic diarrhea Chronic pain disorder Degenerative disc disease Degenerative disc disease, cervical Degenerative disc disease, lumbar Depression Diverticulitis of sigmoid colon Essential (primary) hypertension Fibromyalgia Forgetfulness Generalized anxiety disorder GERD without esophagitis Helicobacter positive gastritis Hepatic steatosis History of abnormal mammogram History of kidney stones Hyperlipemia, mixed Hypothyroidism Irritable bowel syndrome with diarrhea Lichen sclerosus Morbid (severe) obesity due to excess calories Nasal lesion Obstructive sleep apnea (adult) (pediatric) Likely obstructive sleep apnea however patient has not have polysomnogram Pain aggravated by physical activity Panic attacks Postmenopausal Renal cyst, left Restless leg syndrome Screening for osteoporosis Skin exam for malignant neoplasm Type 2 diabetes mellitus with diabetic neuropathy Ulnar neuropathy at elbow Urinary incontinence in female Surgical History Surgical History History of appendectomy (~1980) History of carpal tunnel surgery History of cervical discectomy History of cholecystectomy (~1995) History of colonoscopy with polypectomy History of dental surgery History of lithotripsy (~2001) History of sinus surgery History of tonsillectomy History of total hysterectomy with bilateral salpingo-oophorectomy (BSO) (~1980) Family History Family History Father Hypertension Cerebrovascular accident Family history of suicide, Onset Age: 72 Mother Family history of malignant neoplasm Family history of primary malignant neoplasm of liver, Onset Age: 50 Liver cancer Grandparent Cerebrovascular accident Sibling Patient's brother is in good health Patient's siste
== END 2024-05-12 09:44 | disposition home or self-care (01) ==
PROVIDERS: Emergency Provider Emergency Medicine; PCP Family Medicine
DX: L03.811 Cellulitis of head [any part, except face] (principal); B02.9 Zoster without complications; E11.40 Type 2 diabetes mellitus with diabetic neuropathy, unspecified; E78.5 Hyperlipidemia, unspecified; I10 Essential (primary) hypertension; E03.9 Hypothyroidism, unspecified; J45.909 Unspecified asthma, uncomplicated; M79.7 Fibromyalgia; K21.9 Gastro-esophageal reflux disease without esophagitis; K58.0 Irritable bowel syndrome with diarrhea; G47.33 Obstructive sleep apnea (adult) (pediatric); G25.81 Restless legs syndrome; Z79.84 Long term (current) use of oral hypoglycemic drugs; Z79.4 Long term (current) use of insulin; Z79.51 Long term (current) use of inhaled steroids
CPT/HCPCS: 99283

== ENCOUNTER 2024-05-14 06:55 | Emergency (ER) | payer MEDICARE, SELFPAY ==
[2024-05-14] VITALS (23 sets, daily range): BP systolic 103–146; BP diastolic 44–92; PULSE 73–77; RESP 12–22; TEMP 36.2; O2SAT 91–97
--- NOTE | 2024-05-14 09:49 | ED.HA ---
HPI - Headache General Chief Complaint: Headache Stated Complaint: knot on top of head , dizziness, VEGA Time Seen by Provider: 05/14/24 09:31 Source: patient and family Limitations: no limitations History of Present Illness HPI Narrative: Patient presents with report of a headache, dizziness, and a knot on the top of her head. Recently seen and diagnosed with cellulitis. Discharged with Rx x2 but states symptoms worsening including pain which she states is at this lump which is sharp. States the skin feels tight. Thinks she might have had MRSA at one point though unsure. Daughter is also a patient and states she has had recurrent abscesses. Related Data Home Medications Medication Instructions Recorded Confirmed clobetasol 0.05 % topical cream 1 applic topical DAILY PRN 06/27/22 04/30/24 irritation nystatin 100,000 unit/gram topical 1 applic topical TID PRN Itching 06/27/22 04/30/24 powder triamcinolone acetonide 0.1 % 1 applic topical BID PRN Skin 06/27/22 04/30/24 topical cream Irritation empagliflozin 25 mg tablet 25 mg PO DAILY 05/12/23 04/30/24 (Jardiance) cyclosporine 0.05 % eye drops 1 drp EACH EYE Q12H PRN Dry Eyes 11/25/23 04/30/24 (Restasis MultiDose) Allergies Allergy/AdvReac Type Severity Reaction Status Date / Time adhesive Allergy Unknown Unknown Verified 05/14/24 06:56 clarithromycin Allergy Unknown Unknown Verified 05/14/24 06:56 gabapentin Allergy Unknown Unknown Verified 05/14/24 06:56 metformin Allergy Unknown diarrhea Verified 05/14/24 06:56 neomycin Allergy Unknown Itching Verified 05/14/24 06:56 oseltamivir Allergy Unknown Unknown Verified 05/14/24 06:56 Penicillins Allergy Unknown Unknown Verified 05/14/24 06:56 Sulfa (Sulfonamide Allergy Unknown Unknown Verified 05/14/24 06:56 Antibiotics) latex Allergy Mild Hives Uncoded 04/17/24 08:23 PENDING SALE TO [facility] Past Medical History Medical History Allergic dermatitis Asthma Basal cell carcinoma Chronic diarrhea Chronic pain disorder Degenerative disc disease, cervical Degenerative disc disease, lumbar Depression Diverticulitis of sigmoid colon Essential (primary) hypertension Fibromyalgia Forgetfulness Generalized anxiety disorder GERD without esophagitis Helicobacter positive gastritis Hepatic steatosis History of abnormal mammogram History of kidney stones Hyperlipemia, mixed Hypothyroidism Irritable bowel syndrome with diarrhea Lichen sclerosus Morbid (severe) obesity due to excess calories Nasal lesion Obstructive sleep apnea (adult) (pediatric) Likely obstructive sleep apnea however patient has not have polysomnogram Pain aggravated by physical activity Panic attacks Postmenopausal Renal cyst, left Restless leg syndrome Screening for osteoporosis Skin exam for malignant neoplasm Type 2 diabetes mellitus with diabetic neuropathy Ulnar neuropathy at elbow Urinary incontinence in female Surgical History Surgical History History of appendectomy (~1980) History of carpal tunnel surgery History of cervical discectomy History of cholecystectomy (~1995) History of colonoscopy with polypectomy History of dental surgery History of lithotripsy (~2001) History of sinus surgery History of tonsillectomy History of total hysterectomy with bilateral salpingo-oophorectomy (BSO) (~1980) Family History Family History (Updated 05/14/24 @ 22:34 by Audra Calvillo MD) Father Hypertension Cerebrovascular accident Family history of suicide, Onset Age: 72 Mother Family history of malignant neoplasm Family history of primary malignant neoplasm of liver, Onset Age: 50 Liver cancer Grandparent Cerebrovascular accident Sibling Patient's brother is in good health Patient's sister is Daughter Abscess Other Diabetes mellitus Social History Social History (Revi
[2024-05-14] MEDS: MORPHINE SULFATE INJ (*CRX) 10 MG/ML AMP 4 MG IM (10:28)
== END 2024-05-14 13:15 | disposition home or self-care (01) ==
PROVIDERS: Emergency Provider Student in an Organized Health Care Education/Training Program; PCP Family Medicine
DX: L02.811 Cutaneous abscess of head [any part, except face] (principal); L03.811 Cellulitis of head [any part, except face]; I10 Essential (primary) hypertension; E11.40 Type 2 diabetes mellitus with diabetic neuropathy, unspecified; E66.01 Morbid (severe) obesity due to excess calories; Z68.39 Body mass index [BMI] 39.0-39.9, adult; J45.909 Unspecified asthma, uncomplicated; G25.81 Restless legs syndrome; E03.9 Hypothyroidism, unspecified; K21.9 Gastro-esophageal reflux disease without esophagitis; M79.7 Fibromyalgia; M50.30 Other cervical disc degeneration, unspecified cervical region; M51.36 Other intervertebral disc degeneration, lumbar region; F41.1 Generalized anxiety disorder; F32.A Depression, unspecified; Z87.442 Personal history of urinary calculi; Z85.828 Personal history of other malignant neoplasm of skin; Z90.49 Acquired absence of other specified parts of digestive tract; Z90.710 Acquired absence of both cervix and uterus; Z90.722 Acquired absence of ovaries, bilateral; Z90.79 Acquired absence of other genital organ(s); Z79.4 Long term (current) use of insulin; Z79.899 Other long term (current) drug therapy; Z79.84 Long term (current) use of oral hypoglycemic drugs
CPT/HCPCS: 10060; 96372; 99283; J2270

== ENCOUNTER 2024-06-08 07:48 | Inpatient (IN) | payer MEDICARE, SELFPAY ==
[2024-06-08] VITALS (20 sets, daily range): BP systolic 124–179; BP diastolic 66–104; PULSE 70–98; RESP 12–20; TEMP 36.2–36.8; O2SAT 94–98; BMI 38.8
--- NOTE | ~2024-06-08 | CT_ITS ---
EXAMINATION: CTA BRAIN/CAROTID DATE: 06/08/2024 09:45 INDICATION: Ataxia TECHNIQUE: Computed tomographic angiography (CTA) of the head and neck was performed with 100 mL Omni paque-350 intravenous contrast. Multiplanar reconstructions and maximum intensity projection 3D-recon structions of the carotid arteries and of the intracranial arteries were created by the technologist on a separate workstation. Precontrast CT of the head was also obtained. Automated exposure control and iterative reconstruction technique were employed.The dose-length product was 2134.89 mGy-cm. COMPARISON: Brain MR dated 11/27/[address] brain and carotids dated 11/25/2023 FINDINGS: Carotid arteries: Visualized aortic arch is normal in caliber with no dissection. There is 0% stenosis of the right car otid bulb relative to normal distal artery lumen diameter (NASCET criteria). There is minimal atheros clerotic plaque with 0% stenosis of the left carotid bulb relative to normal distal artery lumen diam eter. Likely benign 6 mm pleural-based nodules at the posterior right upper lobe which is unchanged s kush chest CT dated 03/16/2022. Severe cervical spondylosis with C5-C7 anterior spinal fusion with ant erior plate and screw fixation. Head: No acute intracranial hemorrhage, acute infarction or abnormal extra axial fluid collection. There is mild scattered white matter hypoattenuation consistent with chronic small vessel ischemic disease. V entricles are normal and symmetric. No mass/mass effect. No abnormally enhancing brain lesions on the postcontrast imaging. Changes of bilateral intraocular lens replacement. The orbits, paranasal sinus es and mastoid air cells are normal. Intracranial arteries There is no hemodynamically significant stenosis in the vertebral, basilar and internal carotid arter ies. Vertebral arteries are codominant. There are no aneurysms identified. Both A1 segments are deleon nt. There are diminutive bilateral P1 segments with the majority of vessel flow to the posterior cere bral artery supplied via a patent bilateral posterior commuting arteries. Cerebral arterial arborizat ion appears symmetric. IMPRESSION: 1. 0% stenosis of the right and left carotid bulbs relative to normal distal artery lumen diameter (N ASCET criteria). 2. Mild scattered white matter hypoattenuation consistent with chronic small vessel disease. No acute intracranial process or abnormally enhancing brain lesions. 3. Unremarkable cerebral CT angiogram with no aneurysm, thrombosis or hemodynamically significant jyoti nosis. Reviewed, dictated and finalized at location A. IMPRESSION: 1. 0% stenosis of the right and left carotid bulbs relative to normal distal ar maggie lumen diameter (NASCET criteria). 2. Mild scattered white matter hypoattenuation consistent with chronic small ve ssel disease. No acute intracranial process or abnormally enhancing brain lesio ns. 3. Unremarkable cerebral CT angiogram with no aneurysm, thrombosis or hemodynam ically significant stenosis.
--- NOTE | ~2024-06-08 | XR_ITS ---
EXAMINATION: XR chest 2V DATE: 06/08/2024 08:43 INDICATION: Weakness, diplopia and tremors TECHNIQUE: frontal and lateral views of the chest were obtained. COMPARISON: Chest radiograph dated 11/25/[address] dated 03/16/2022 FINDINGS: Mild discoid atelectasis at the lingula. Lungs are otherwise clear with no other airspace opacities, pulmonary edema, pleural effusion or pneumothorax. The cardiomediastinal silhouette is normal. Modera te thoracic spondylosis. Anterior plate-screw fixation for lower cervical anterior spinal fusion. Cho lecystectomy clips in the upper abdomen. IMPRESSION: 1. Mild discoid atelectasis at the lingula. No other acute cardiopulmonary disease. Reviewed, dictated and finalized at location A. IMPRESSION: 1. Mild discoid atelectasis at the lingula. No other acute cardiopulmonary dise ase.
--- NOTE | ~2024-06-08 | MR_ITS ---
MRI of the brain Clinical History: Change in neuro exam Technique: Axial and sagittal T1-weighted images were acquired. These were followed by axial T2-weigh evelin, diffusion weighted, gradient, and FLAIR images. COMPARISON: 11/27/2023 Findings: No abnormal signal seen in the brain parenchyma. No acute infarct, intracranial hemorrhage or mass lesion. Ventricles and subarachnoid spaces are unremarkable. Orbits are unremarkable. Paranasal sinuses and m astoid air cells are clear. Major intracranial flow voids are intact. Sagittal midline structures are intact. IMPRESSION: Normal exam. Reviewed, dictated and finalized at location M. IMPRESSION: Normal exam.
--- NOTE | 2024-06-08 08:01 | ECG_ITS ---
Test Date: 2024-06-08 08:23:17 Measurements Intervals [place] Rate: 82 P: 43 MI: 145 QRS: -10 QRSD: 91 T: 23 QT: 387 QTc: 454 Interpretive Statements SINUS RHYTHM poor R-wave progression. INFERIOR MYOCARDIAL INFARCTION , PROBABLY OLD [40+ ms Q WAVE AND/OR ST/T ABNORMALITY IN II/aVF] No previous ECG available for comparison Electronically Signed On 06-08-2024 16:21:38 CDT by Ananya Gr M.D.
[2024-06-08 08:02] LABS: Glucose Point of Care 229 mg/dl (65-105)
--- NOTE | 2024-06-08 08:45 | ED.WEAKNESS ---
HPI - Weakness General Chief complaint: Weakness Stated complaint: dizzyness Time Seen by Provider: 06/08/24 08:00 Source: patient and family Mode of arrival: ambulatory Limitations: no limitations History of Present Illness HPI Narrative: This is a 68-year-old female, with history of COPD, diabetes, hypothyroidism and hypertension, who presents to the emergency department complaining loss of balance and double vision for the past several days. The patient states last known well was 4 days ago, when she noticed this sensation of feeling off balance. This was associated with some trembling in the arms. In the past 2 days, she began noticing double vision. She denies other focal weakness, nausea, vomiting, chest pain or shortness of breath. She states she has fallen twice in the past 4 days though denies head injury or loss of consciousness. She has no other complaints at this time. Related Data Home Medications Medication Instructions Recorded Confirmed clobetasol 0.05 % topical cream 1 applic topical DAILY PRN 06/27/22 06/08/24 irritation triamcinolone acetonide 0.1 % 1 applic topical BID PRN Skin 06/27/22 06/08/24 topical cream Irritation cyclosporine 0.05 % eye drops 1 drp EACH EYE Q12H PRN Dry Eyes 11/25/23 06/08/24 (Restasis MultiDose) alprazolam 1 mg tablet 1 mg PO Q12H PRN anxiety 06/08/24 06/08/24 atenolol 50 mg tablet 75 mg PO HS 06/08/24 06/08/24 bismuth subsalicylate 262 mg 2 tablet PO QID 06/08/24 06/08/24 chewable tablet doxycycline hyclate 100 mg capsule 100 mg PO Q12H 06/08/24 06/08/24 glimepiride 4 mg tablet 4 mg PO QAM 06/08/24 06/08/24 insulin glargine 100 unit/mL 15 unit subcut HS 06/08/24 06/08/24 subcutaneous solution (Lantus U-100 Insulin) metronidazole 500 mg tablet 500 mg PO Q8H 06/08/24 06/08/24 pregabalin 75 mg capsule 75 mg PO Q12H 06/08/24 06/08/24 tetracycline 500 mg capsule 500 mg PO Q6H 06/08/24 06/08/24 tirzepatide 2.5 mg/0.5 mL 2.5 mg subcut WEEKLY 06/08/24 06/08/24 subcutaneous pen injector (Gopalunabilioro) valacyclovir 1 gram tablet 1,000 mg PO TID 06/08/24 06/08/24 Allergies Allergy/AdvReac Type Severity Reaction Status Date / Time adhesive Allergy Unknown Unknown Verified 05/22/24 15:44 clarithromycin Allergy Unknown Unknown Verified 05/22/24 15:44 gabapentin Allergy Unknown Unknown Verified 05/22/24 15:44 metformin Allergy Unknown diarrhea Verified 05/22/24 15:44 neomycin Allergy Unknown Itching Verified 05/22/24 15:44 oseltamivir Allergy Unknown Unknown Verified 05/22/24 15:44 Penicillins Allergy Unknown Unknown Verified 05/22/24 15:44 Sulfa (Sulfonamide Allergy Unknown Unknown Verified 05/22/24 15:44 Antibiotics) latex Allergy Mild Hives Uncoded 05/22/24 15:44 Review of Systems Review of Systems: All systems reviewed & are unremarkable except as noted in HPI and below PMFSH Past Medical History Medical History Abscess Allergic dermatitis Asthma Basal cell carcinoma Cristina infection Chronic diarrhea Chronic pain disorder Degenerative disc disease, cervical Degenerative disc disease, lumbar Depression Diverticulitis of sigmoid colon Essential (primary) hypertension Fibromyalgia Forgetfulness Generalized anxiety disorder GERD without esophagitis Glucosuria Helicobacter positive gastritis Hepatic steatosis History of abnormal mammogram History of kidney stones Hyperlipemia, mixed Hypothyroidism Irritable bowel syndrome with diarrhea Lichen sclerosus Morbid (severe) obesity due to excess calories Nasal lesion Obstructive sleep apnea (adult) (pediatric) Likely obstructive sleep apnea however patient has not have polysomnogram Pain aggravated by physical activity Panic attacks Postmenopausal Renal cyst, left Restless leg syndrome Screening for osteoporosis Skin exam for malignant neoplasm Type 2 diabetes mellitus with diabetic neuropathy Ulnar neuropathy at elbow Urinary incontinence in female Surg
[2024-06-08 08:59] LABS: Basophils Absolute Auto 0.1 K/mm3 (0.0-0.1); Basophils Percent Auto 0.6 % (0.2-1.2); Eosinophils Absolute Auto 0.1 K/mm3 (0-0.3); Eosinophils Percent Auto 1.1 % (0-4.4); Hemoglobin 14.4 g/dL (12.0-15.0); Immature Granulocyte Absolute 0.07 K/mm3 (0.00-0.031); Immature Granulocyte Percent A 0.7 % (0-0.5); Lymphocytes Percent Auto 31.4 % (18.3-44.2); Mean Corpuscular HGB Conc 32.7 g/dl (32-36); Mean Corpuscular Hemoglobin 27.4 pg (26-34); Mean Corpuscular Volume 83.7 fl (80-100); Mean Platelet Volume 11.7 fl (7.4-10.4); Monocytes Absolute Auto 0.8 K/mm3 (0.1-0.6); Monocytes Percent Auto 7.7 % (2.6-8.5); Neutrophils Percent Auto 58.5 % (45.5-73.1); Platelet Count Result 246 k/mm3 (150-375); Red Blood Count 5.26 M/mm3 (4.2-5.4); Red Cell Distribution Width 16.1 % (11.5-14.5); White Blood Count 10.2 K/mm3 (4.5-10.0)
[2024-06-08 09:01] LABS: Add Urine Microscopic? NO; Appearance Urine Clear (Clear); Bilirubin Urine Negative (Negative); Blood Urine Negative (Negative); Color Urine Yellow (Yellow); Glucose Urine UA 3+ mg/dL (Negative); Ketones Urine Negative (Negative); Leukocyte Esterase Ur Negative LEU/UL (Negative); Nitrate Urine Negative (Negative); Protein Urine Negative (Negative); Specific Grav Ur > 1.045 (1.001-1.035); pH Urine 6.5 (5.0-9.0)
[2024-06-08 09:10] LABS: Alanine Aminotransferase 12 U/L (6-35); Albumin Level 4.1 g/dL (3.5-5.1); Alkaline Phosphatase 81 U/L (38-126); Anion Gap 11 mmol/L (4-12); Aspartate Amino Transferase 16 U/L (14-36); Bilirubin,Total 0.6 mg/dL (0.2-1.3); Blood Urea Nitrogen 10 mg/dL (7-17); Calcium 9.5 mg/dL (8.4-10.2); Carbon Dioxide 25 mmol/L (22-30); Chloride 102 mmol/L (98-107); Estimated Glomerular Filt Rate > 60; Glucose 215 mg/dL (65-110); Potassium 2.8 mmol/L (3.4-5.0); Sodium 138 mmol/L (137-145)
[2024-06-08 09:13] LABS: Ethanol < 10 mg/dL (<10)
[2024-06-08 09:18] LABS: Amphetamine Screen Urine Negative (Negative); Barbiturate Screen Urine Negative (Negative); Benzodiazepines Screen Urine Negative (Negative); Cannabinoid Screen Urine Negative (Negative); Cocaine Screen Urine Negative (Negative); Methadone Screen Urine Negative (Negative); Opiate Screen Urine Negative (Negative); Phencyclidine Screen Urine Negative (Negative)
[2024-06-08 09:23] LABS: Troponin I < 0.012 ng/mL (0.000-0.034)
[2024-06-08] MEDS: POTASSIUM CHLORIDE 20 MEQ PACKET (FOR LIQUID) 40 MEQ PO (11:29)
--- NOTE | 2024-06-08 12:32 | PM.IMHP ---
H&P: HPI History of Present Illness Date/Time: 06/08/24 12:32 Chief Complaint: CC: weakness This is a 68-year-old female with PMH/o COPD, diabetes, hypothyroidism and hypertension, who admitted from ED for c/o loss of balance and double vision for the past several days. This was associated with some trembling in the arms. In the past 2 days, she began noticing double vision. She denies other focal weakness, nausea, vomiting, chest pain or shortness of breath. She has fallen twice in the past 4 days - denies head injury or loss of consciousness. She has no other complaints at this time. IN ED: CBC unremarkable. Hypokalemia with potassium of 2.8. Chest x-ray negative for acute cardiopulmonary process. CT of the head and neck could not concerning for intracranial hemorrhage or mass. CT angiogram not concerning for acute occlusion. Urinalysis not concerning for UTI. Urine drug screen negative. Serum alcohol level negative. EKG demonstrates sinus rhythm without other concerning for ischemia or arrhythmia. Neurologist, Dr. Lucia was consulted. of note- she was seen per her PCP on 05/22/24- for hospital f/u- admit 05-14-24 cc: headache Dx: cellulitis of scalp and 05-12-24 cc: wound on top of head. Dx: shingles. She reported anxiety worsening (upcoming first anniversary of her husbands unexpected ). She was also c/o pain and itching under her breasts d/t yeast, it is red and has an odor. 06/06- pt is very pleasant. reports feeling fine this afternoon. Weak and dizzy, recent falls. blurred vision at times. Review of Systems Review of Systems: All systems reviewed & are unremarkable except as noted in HPI and below (h/p) [facility] Past Medical History Medical History Abscess Allergic dermatitis Asthma Basal cell carcinoma Cristina infection Chronic diarrhea Chronic pain disorder Degenerative disc disease, cervical Degenerative disc disease, lumbar Depression Diverticulitis of sigmoid colon Essential (primary) hypertension Fibromyalgia Forgetfulness Generalized anxiety disorder GERD without esophagitis Glucosuria Helicobacter positive gastritis Hepatic steatosis History of abnormal mammogram History of kidney stones Hyperlipemia, mixed Hypothyroidism Irritable bowel syndrome with diarrhea Lichen sclerosus Morbid (severe) obesity due to excess calories Nasal lesion Obstructive sleep apnea (adult) (pediatric) Likely obstructive sleep apnea however patient has not have polysomnogram Pain aggravated by physical activity Panic attacks Postmenopausal Renal cyst, left Restless leg syndrome Screening for osteoporosis Skin exam for malignant neoplasm Type 2 diabetes mellitus with diabetic neuropathy Ulnar neuropathy at elbow Urinary incontinence in female Surgical History Surgical History History of appendectomy (~1980) History of carpal tunnel surgery History of cervical discectomy History of cholecystectomy (~1995) History of colonoscopy with polypectomy History of dental surgery History of lithotripsy (~2001) History of sinus surgery History of tonsillectomy History of total hysterectomy with bilateral salpingo-oophorectomy (BSO) (~1980) Family History Family History Father Hypertension Cerebrovascular accident Family history of suicide, Onset Age: 72 Mother Family history of malignant neoplasm Family history of primary malignant neoplasm of liver, Onset Age: 50 Liver cancer Grandparent Cerebrovascular accident Sibling Patient's brother is in good health Patient's sister is Daughter Abscess Other Diabetes mellitus Social History Social History Social History: Surrogate medical decision maker: Estefanía Gutierrez and Dalila Oconnor (daughters). Code status: Full code.
--- NOTE | 2024-06-08 13:28 | ADMGEN ---
This patient, Inna Craig, was admitted to IMU Room 209-01. Patient/family oriented to hospital policies and general routines including ID bracelet, bed and alarms, visiting hours, pain management, procedures, bathroom and other care routines, personal items, smoking policy, room service/diet, and visiting hours. Information on how to activate the Rapid Response Team has been discussed. Patient/Family are encouraged to report perceived risks to care and to ask questions if they do not understand what they are told or what they should do.
--- NOTE | 2024-06-08 13:39 | ADMGEN ---
This patient, Inna Craig, was admitted to IMU Room 209-01. Patient/family oriented to hospital policies and general routines including ID bracelet, bed and alarms, visiting hours, pain management, procedures, bathroom and other care routines, personal items, smoking policy, room service/diet, and visiting hours. Information on how to activate the Rapid Response Team has been discussed. Patient/Family are encouraged to report perceived risks to care and to ask questions if they do not understand what they are told or what they should do. Patient arrive to the IMU at 1430.
--- NOTE | 2024-06-08 14:02 | WPDNEURCNPN ---
Consult date: 06/08/24 HPI: Inna Craig is a 68 year old female Admitted to the hospital through the emergency room where he presented with the complaints of headache, dizziness, and a knot on the top of her head. Has been to the hospital before and has been discharged x2 but reportedly symptomatology is getting worse she also complained of knees feeling tight and was concerned about the possibility of MRSA . At the time of admission to the hospital this time through the ER medications included Jardiance 25mg daily and also history of multiple allergies as outlined. Patient does have ongoing history of multiple medical problem which particularly involves chronic pain disorder, degenerate disc disease of cervical and lumbar spine, generalized anxiety disorder with fibromyalgia, restless leg syndrome, and has undergone multiple surgeries as outlined including cervical diskectomy, she has history of occasional alcohol use, initial exam in the emergency room was documented with no focal neurological deficit and her vital signs were normal particularly she was afebrile with blood pressure 46/82 which came down to 116/59, CTA of the brain was normal with no evidence of aneurysm or thrombosis, cervical spine MRI has been done in November of this year and was compatible with only moderate cervical spondylosis along with the anterior fusion procedure from C5-C7 and chronic myelomalacia at C5 and C6. routine lab studies at this time documented a potassium of only 2.8 with glucose of 215 and urine drug screen was negative. On the revisit to the ER on 06/08 24 main complaint of loss of balance and double vision the last several days along with the trembling sensation and history of fall twice in the last 4 days without becoming unconscious PMFSH Past Medical History Medical History Abscess Allergic dermatitis Asthma Basal cell carcinoma Cristina infection Chronic diarrhea Chronic pain disorder Degenerative disc disease, cervical Degenerative disc disease, lumbar Depression Diverticulitis of sigmoid colon Essential (primary) hypertension Fibromyalgia Forgetfulness Generalized anxiety disorder GERD without esophagitis Glucosuria Helicobacter positive gastritis Hepatic steatosis History of abnormal mammogram History of kidney stones Hyperlipemia, mixed Hypothyroidism Irritable bowel syndrome with diarrhea Lichen sclerosus Morbid (severe) obesity due to excess calories Nasal lesion Obstructive sleep apnea (adult) (pediatric) Likely obstructive sleep apnea however patient has not have polysomnogram Pain aggravated by physical activity Panic attacks Postmenopausal Renal cyst, left Restless leg syndrome Screening for osteoporosis Skin exam for malignant neoplasm Type 2 diabetes mellitus with diabetic neuropathy Ulnar neuropathy at elbow Urinary incontinence in female Surgical History Surgical History History of appendectomy (~1980) History of carpal tunnel surgery History of cervical discectomy History of cholecystectomy (~1995) History of colonoscopy with polypectomy History of dental surgery History of lithotripsy (~2001) History of sinus surgery History of tonsillectomy History of total hysterectomy with bilateral salpingo-oophorectomy (BSO) (~1980) Family History Family History Father Hypertension Cerebrovascular accident Family history of suicide, Onset Age: 72 Mother Family history of malignant neoplasm Family history of primary malignant neoplasm of liver, Onset Age: 50 Liver cancer Grandparent Cerebrovascular accident Sibling Patient's brother is in good health Patient's sister is Daughter Abscess Other Diabetes mellitus Social History Social History [place]
--- NOTE | 2024-06-08 14:35 | WPDNEURCNPN ---
Assessment and Plan Assessment and plan (1) Ataxia: Code(s): R27.0 - Ataxia, unspecified Status: Acute (2) Diabetic neuropathy: Code(s): E11.40 - Type 2 diabetes mellitus with diabetic neuropathy, unspecified Status: Acute (3) Neurologic gait dysfunction: Code(s): R26.9 - Unspecified abnormalities of gait and mobility Status: Acute Plan 1. Diabetes mellitus 2. Hypertension 3. Possible TIA for the complaints of double vision 4. Diabetic neuropathy with gait dysfunction 5. Hypothyroidism by history. And 6. Fibromyalgia by history. Suggestion to educate, give her physical therapy, head and neck CTA is negative, cervical MRI in the past has already documented significant spondylosis with chronic myelomalacia which obviously can aggravate the ambulatory dysfunction, and brain MRI in November of this year was completely normal. She can be a educated for the ongoing chronic problems to avoid the fall, to avoid the overmedication ,and regular follow-up with the family physician. In addition to physical therapy, as for as the scalp lesion concerned, again that needs to be clarified to her Consult date: 06/08/24 HPI: Inna Craig is a 68 year old female Admitted to the hospital through the emergency room where she presented with the complaints of headaches dizziness and knot on the top of her head. Patient has been to the hospital before and has been discharged x2 but reportedly symptomatology is getting worse she also complained of knees feeling tight and was concerned about the possibility of MRSA infection. At the time of admission to the hospital this time, through the ER, medications included Jardiance 25mg daily, history of multiple allergies as outlined. Patient does have ongoing history of multiple medical problems which particularly involve chronic pain disorder, degenerative disc disease of cervical and lumbar spine, generalized anxiety disorder with fibromyalgia, restless leg syndrome and has undergone multiple surgeries as outlined including cervical diskectomy, she also has history of occasional alcohol use, initial exam in the emergency room was documented with no focal neurological deficit and her vital signs were normal particularly she was afebrile with blood pressure of 146/82 which came down to 116/59 subsequently, CTA of the brain was normal with no evidence of aneurysm, thrombosis and cervical spine MRI was done in November of this year which was compatible with only moderate cervical spondylosis along with the anterior fusion procedure from C5-C7 and chronic myelomalacia at C5 and C6. Routine lab studies at this time documented a potassium of only 2.8 with glucose of 215 and urine drug screen was negative. On the visit to the ER on June 08, 2024 main complaint was of loss of balance and double vision the last several days along with the trembling sensation and history of fall twice in the last 4 days without becoming unconscious. Review of Systems Review of Systems: All systems reviewed & are unremarkable except as noted in HPI and below PMFSH Past Medical History Medical History Abscess Allergic dermatitis Asthma Basal cell carcinoma Cristina infection Chronic diarrhea Chronic pain disorder Degenerative disc disease, cervical Degenerative disc disease, lumbar Depression Diverticulitis of sigmoid colon Essential (primary) hypertension Fibromyalgia Forgetfulness Generalized anxiety disorder GERD without esophagitis Glucosuria Helicobacter positive gastritis Hepatic steatosis History of abnormal mammogram History of kidney stones Hyperlipemia, mixed Hypothyroidism Irritable bowel syndrome with diarrhea Lichen sclerosus Morbid (severe) obesity due to excess calories Nasal lesion Obstructive sleep apnea (adult) (pediatric) Likely obstructive sleep apnea however patient has not have polysomnogram Pain aggravated by physical activity Pa
[2024-06-08 15:21] LABS: Hemoglobin A1C 9.6 % (<5.7)
--- NOTE | 2024-06-08 15:24 | PCRCNOTE ---
Discussed with patient the home BiPAP/CPAP order that was put in. Pt said that she does not wear her home unit very often. Daughter said mom you have never worn it and have not even set it up . Pt does not want to wear it at home and stated that she does not wish for us to supply her with one here in the hospital. I did tell patient and daughter that if the patient decides that she would like to try it or feels that she needs it that she can let the nurse know and they can inform respiratory therapy.
[2024-06-08] MEDS: POTASSIUM CHLORIDE INJ 40 MEQ in SODIUM CHLORIDE 0.9% IV 500 ML 130 MEQ IVPB (16:38)
[2024-06-08] MEDS: valACYclovir HCL 500 MG TABLET 1000 MG PO (16:39)
[2024-06-08] MEDS: rOPINIRole HCL 1 MG TABLET PO (16:39)
[2024-06-08] MEDS: BISMUTH SUBSALICYLATE 262 MG CHEWABLE TABLET 524 MG PO (16:40)
[2024-06-08 16:56] LABS: Glucose Point of Care 286 mg/dl (65-105)
[2024-06-08] MEDS: INSULIN GLARGINE (*BKC) 100 UNITS/ML 15 UNITS SUB-Q (20:08)
[2024-06-08] MEDS: TRIAMCINOLONE ACET 0.1% CREAM 15 GM TUBE 1 APPLIC TOPICAL (20:08)
[2024-06-08] MEDS: atenoloL 25 MG TABLET 75 MG PO (20:09)
[2024-06-08] MEDS: ALPRAZolam (*CRX) 0.5 MG TABLET 1 MG PO (20:15)
[2024-06-08 20:24] LABS: Glucose Point of Care 254 mg/dl (65-105)
--- NOTE | 2024-06-08 22:33 | PC.NURSE ---
Return phone call received from Michelle SALVADOR. Jack SALVADOR made a johnson of patient c/o of headache and request for Tylenol. OK to order Tylenol at this time.
[2024-06-08] MEDS: ACETAMINOPHEN 325 MG TABLET 650 MG PO (22:43)
[2024-06-09] VITALS (18 sets, daily range): BP systolic 111–155; BP diastolic 52–77; PULSE 58–78; RESP 16–22; TEMP 36.1–36.8; O2SAT 97–100
[2024-06-09 04:22] LABS: Basophils Percent Auto 0.5 % (0.2-1.2); Eosinophils Absolute Auto 0.2 K/mm3 (0-0.3); Eosinophils Percent Auto 2.6 % (0-4.4); Hematocrit 41.5 % (37.0-47.0); Hemoglobin 12.9 g/dL (12.0-15.0); Immature Granulocyte Absolute 0.05 K/mm3 (0.00-0.031); Immature Granulocyte Percent A 0.6 % (0-0.5); Lymphocytes Absolute Auto 3.99 K/mm3 (0.9-3.2); Lymphocytes Percent Auto 45.2 % (18.3-44.2); Mean Corpuscular HGB Conc 31.1 g/dl (32-36); Mean Corpuscular Hemoglobin 26.7 pg (26-34); Mean Corpuscular Volume 85.9 fl (80-100); Mean Platelet Volume 11.9 fl (7.4-10.4); Monocytes Absolute Auto 0.6 K/mm3 (0.1-0.6); Monocytes Percent Auto 7.2 % (2.6-8.5); Neutrophils Absolute Auto 3.9 K/mm3 (1.3-6.7); Neutrophils Percent Auto 43.9 % (45.5-73.1); Platelet Count Result 221 k/mm3 (150-375); Red Blood Count 4.83 M/mm3 (4.2-5.4); Red Cell Distribution Width 16.3 % (11.5-14.5); White Blood Count 8.8 K/mm3 (4.5-10.0)
[2024-06-09 04:33] LABS: Potassium 3.2 mmol/L (3.4-5.0)
[2024-06-09 04:36] LABS: Anion Gap 8 mmol/L (4-12); Blood Urea Nitrogen 6 mg/dL (7-17); Calcium 8.6 mg/dL (8.4-10.2); Carbon Dioxide 26 mmol/L (22-30); Chloride 105 mmol/L (98-107); Estimated CRCL calculation 59 ml/min; Estimated Glomerular Filt Rate > 60; Glucose 189 mg/dL (65-110); Sodium 139 mmol/L (137-145)
[2024-06-09] MEDS: rOPINIRole HCL 1 MG TABLET PO ×3 (05:44→18:37)
[2024-06-09] MEDS: LEVOTHYROXINE SODIUM 88 MCG TABLET PO (05:44)
[2024-06-09 07:44] LABS: Glucose Point of Care 194 mg/dl (65-105)
--- NOTE | 2024-06-09 08:05 | PM.IMPN ---
Progress Note: A&P Assessment and Plan (1) Ataxia: Code(s): R27.0 - Ataxia, unspecified Status: Acute Assessment and Plan: - neurology consulted - tele - high fall risk -neurology saw her on 06/08- notes reviewed: Suggestion to educate, give her physical therapy, head and neck CTA is negative, cervical MRI in the past has already documented significant spondylosis with chronic myelomalacia which obviously can aggravate the ambulatory dysfunction, and brain MRI in November of this year was completely normal. She can be a educated for the ongoing chronic problems to avoid the fall, to avoid the overmedication ,and regular follow-up with the family physician. - will add PT/OT today - possible downgrade to medsur floor if stable (2) Acute hypokalemia: Code(s): E87.6 - Hypokalemia Status: Acute Assessment and Plan: - replaced K in ed with 40 meq - will order IV dose -will recheck and monitor -06/09- K 3.2 today- will continue with PO replacement now (3) Abscess: Code(s): L02.91 - Cutaneous abscess, unspecified Status: Acute (4) GERD (gastroesophageal reflux disease): Qualifiers: Esophagitis presence: esophagitis presence not specified Qualified Code(s): K21.9 - Gastro-esophageal reflux disease without esophagitis Code(s): K21.9 - Gastro-esophageal reflux disease without esophagitis Status: Acute Assessment and Plan: chronic issues - will resume home pomeprazole (5) Chronic pain disorder: Code(s): G89.4 - Chronic pain syndrome Status: Acute Assessment and Plan: continue home pain regimen (6) Degenerative disc disease, cervical: Code(s): M50.30 - Other cervical disc degeneration, unspecified cervical region Status: Acute (7) Insulin dependent type 2 diabetes mellitus: Code(s): E11.9 - Type 2 diabetes mellitus without complications; Z79.4 - drawer maker (current) use of insulin Status: Acute Assessment and Plan: on home glimepiride, jardiance, mounjaro (monday will be 3rd dose) lantus 15 units and ss - will hold po meds, hold mounjaro and order ss and lantus 15 units - hypoglycemic protocol, c carb diet 10/6- will increase lantus a little bit to provide better bS control - when pt is discharged, she is to go back to her 15 units of lantus- no need to keep 17 as she would resume her tirzepitide dose and the ultimate goal would be to d/c insulin all together Plan # hypothyroid- chronic- resume home meds # RLS- will resume home meds # Huan - chronic- duloxetine, wellbutrin, xanax prn # HLD- chronic- continue home statin DVT prophylaxis: lonenox 40 mg SQ Time Spent With Patient Time with patient: Greater than 35 minutes Subjective Date/time seen: 06/09/24 08:05 Interval history: pt is seen and examined this am. Reports no acute events overnight. Neurology saw her- no new work up is advised. Still reports some blurred vision and dizzy/unsteady but otherwise feels ok. Review of Systems Review of Systems: All systems reviewed & are unremarkable except as noted in HPI and below (h/p) Eyes: Eyes: Reports blurry vision Respiratory: Respiratory: Denies chest congestion and Denies cough Gastrointestinal: Gastrointestinal: Denies abdominal pain Genitourinary: Genitourinary: Denies hematuria Neurologic: Reports abnormal gait Exam Const: General: comfortable Resp: Effort & Inspection: normal respiratory effort Auscultation: clear to auscultation bilaterally Cardio: Rate: regular rate Rhythm: regular rhythm Skin: General skin exam: normal color Neuro: Speech: normal speech Motor exam (neuro): 5/5 motor strength present throughout Extrem: General: normal to inspection Psych: Mental Status: mental status grossly normal Affect: normal affect Objective Data Vital Signs Vital Signs: Vital Signs - 24 hr 06/08/24 08:08 06/08/24 08:31 06/08/24 09:01 Temperature 97.9 F 97.8 F
[2024-06-09] MEDS: ALPRAZolam (*CRX) 0.5 MG TABLET 1 MG PO ×2 (09:24→20:03)
[2024-06-09] MEDS: buPROPion HCL XL (24 HR) 150 MG TABCR 300 MG PO (09:24)
[2024-06-09] MEDS: ATORVASTATIN 20 MG TABLET PO (09:25)
[2024-06-09] MEDS: valACYclovir HCL 500 MG TABLET 1000 MG PO ×3 (09:25→18:37)
[2024-06-09] MEDS: DULoxetine HCL 60 MG CAPSULE.DR PO (09:25)
[2024-06-09] MEDS: PANTOPRAZOLE 40 MG TABLET PO ×2 (09:26→18:36)
[2024-06-09] MEDS: POTASSIUM CHLORIDE 20 MEQ PACKET (FOR LIQUID) 40 MEQ PO (09:26)
[2024-06-09] MEDS: BISMUTH SUBSALICYLATE 262 MG CHEWABLE TABLET 524 MG PO ×3 (09:27→18:36)
[2024-06-09] MEDS: TRIAMCINOLONE ACET 0.1% CREAM 15 GM TUBE 1 APPLIC TOPICAL (09:28)
[2024-06-09 11:51] LABS: Glucose Point of Care 210 mg/dl (65-105)
[2024-06-09] MEDS: INSULIN ASPART (*BKC) 100 UNITS/ML SUB-Q (12:06)
--- NOTE | 2024-06-09 15:17 | PC.NURSE ---
1535 - Patient reported she was feeling confused, dizzy, and more tired than usual. This RN completed a full neuro exam noting mild ataxia present in the right upper extremity consistent with patients baseline exam, mildly blurry vision, and double vision present in the lower merritt of vision. Sensation, strength, and pupillary response intact. The patient is alert and oriented x4, NSR in the 70s, BP 148/55 (77), blood sugar 164, patient denies headache and other vision changes.
[2024-06-09 15:54] LABS: Glucose Point of Care 164 mg/dl (65-105)
[2024-06-09] MEDS: INSULIN GLARGINE (*BKC) 100 UNITS/ML 17 UNITS SUB-Q (20:01)
[2024-06-09] MEDS: atenoloL 25 MG TABLET 75 MG PO (20:02)
[2024-06-09 20:28] LABS: Glucose Point of Care 237 mg/dl (65-105)
--- NOTE | 2024-06-09 21:15 | PC.NURSE ---
This patient, Inna Craig, was transferred to [[id number] ] on 06/09/24 at 2113. Personal belongings sent with patient. Report given to [ Scott RN]. Appropriate documentation sent with patient.
[2024-06-10] VITALS: PULSE 72
[2024-06-10 04:00] VITALS: BP 147/78; PULSE 61; PULSE 69; RESP 22; TEMP 36.2; O2SAT 100
[2024-06-10] MEDS: LEVOTHYROXINE SODIUM 88 MCG TABLET PO (06:41)
[2024-06-10 07:03] LABS: Basophils Percent Auto 0.5 % (0.2-1.2); Eosinophils Absolute Auto 0.4 K/mm3 (0-0.3); Eosinophils Percent Auto 4.8 % (0-4.4); Hematocrit 40.3 % (37.0-47.0); Hemoglobin 12.4 g/dL (12.0-15.0); Immature Granulocyte Absolute 0.04 K/mm3 (0.00-0.031); Immature Granulocyte Percent A 0.5 % (0-0.5); Lymphocytes Absolute Auto 3.59 K/mm3 (0.9-3.2); Lymphocytes Percent Auto 45.4 % (18.3-44.2); Mean Corpuscular HGB Conc 30.8 g/dl (32-36); Mean Corpuscular Hemoglobin 26.7 pg (26-34); Mean Corpuscular Volume 86.7 fl (80-100); Mean Platelet Volume 11.8 fl (7.4-10.4); Monocytes Absolute Auto 0.6 K/mm3 (0.1-0.6); Monocytes Percent Auto 7.1 % (2.6-8.5); Neutrophils Absolute Auto 3.3 K/mm3 (1.3-6.7); Neutrophils Percent Auto 41.7 % (45.5-73.1); Platelet Count Result 203 k/mm3 (150-375); Red Blood Count 4.65 M/mm3 (4.2-5.4); Red Cell Distribution Width 16.5 % (11.5-14.5); White Blood Count 7.9 K/mm3 (4.5-10.0)
[2024-06-10 07:15] LABS: Magnesium 1.6 mg/dL (1.6-2.3)
[2024-06-10 07:17] LABS: Alanine Aminotransferase 11 U/L (6-35); Albumin Level 3.5 g/dL (3.5-5.1); Alkaline Phosphatase 68 U/L (38-126); Anion Gap 8 mmol/L (4-12); Aspartate Amino Transferase 14 U/L (14-36); Bilirubin,Total 0.4 mg/dL (0.2-1.3); Blood Urea Nitrogen 6 mg/dL (7-17); Calcium 8.8 mg/dL (8.4-10.2); Carbon Dioxide 23 mmol/L (22-30); Chloride 107 mmol/L (98-107); Estimated CRCL calculation 68 ml/min; Estimated Glomerular Filt Rate > 60; Glucose 165 mg/dL (65-110); Potassium 3.1 mmol/L (3.4-5.0); Sodium 138 mmol/L (137-145)
[2024-06-10 07:18] LABS: Glucose Point of Care 138 mg/dl (65-105)
[2024-06-10 08:00] VITALS: BP 148/67; PULSE 65; RESP 19; TEMP 36.1; O2SAT 99
[2024-06-10 08:21] LABS: Folic Acid 4.1 ng/mL (2.76->20)
--- NOTE | 2024-06-10 08:41 | PM.IMPN ---
Progress Note: A&P Assessment and Plan (1) Ataxia: Code(s): R27.0 - Ataxia, unspecified Status: Acute Assessment and Plan: Head/neck CTA: 1. 0% stenosis of the right and left carotid bulbs relative to normal distal artery lumen diameter (NASCET criteria). 2. Mild scattered white matter hypoattenuation consistent with chronic small vessel disease. No acute intracranial process or abnormally enhancing brain lesions. 3. Unremarkable cerebral CT angiogram with no aneurysm, thrombosis or hemodynamically significant stenosis. Brain MRI: Normal exam - Continue tele - High fall risk, continue fall precautions - B12 06/10: 284 -Neurology consulted Educate for the ongoing chronic problems to avoid the fall, to avoid the overmedication ,and regular follow-up with the family physician. Give her physical therapy. - PT/OT consulted (2) Acute hypokalemia: Code(s): E87.6 - Hypokalemia Status: Acute Assessment and Plan: - replaced K in ed with 40 meq - will order IV dose -will recheck and monitor -06/10 K 3.1 (3) GERD (gastroesophageal reflux disease): Qualifiers: Esophagitis presence: esophagitis presence not specified Qualified Code(s): K21.9 - Gastro-esophageal reflux disease without esophagitis Code(s): K21.9 - Gastro-esophageal reflux disease without esophagitis Status: Acute Assessment and Plan: chronic issues - will resume home pomeprazole (4) Chronic pain disorder: Code(s): G89.4 - Chronic pain syndrome Status: Acute Assessment and Plan: continue home pain regimen (5) Degenerative disc disease, cervical: Code(s): M50.30 - Other cervical disc degeneration, unspecified cervical region Status: Acute (6) Insulin dependent type 2 diabetes mellitus: Code(s): E11.9 - Type 2 diabetes mellitus without complications; Z79.4 - 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 purification 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 (current) use of insulin Status: Acute Assessment and Plan: on home glimepiride, jardiance, mounjaro (monday will be 3rd dose) lantus 15 units and ss - will hold po meds, hold mounjaro and order ss and lantus 15 units - hypoglycemic protocol, c carb diet 06/09- will increase lantus a little bit to provide better bS control - when pt is discharged, she is to go back to her 15 units of lantus- no need to keep 17 as she would resume her tirzepitide dose and the ultimate goal would be to d/c insulin all together Plan # hypothyroid- chronic- resume home meds # RLS- will resume home meds # Huan - chronic- duloxetine, wellbutrin, xanax prn # HLD- chronic- continue home statin DVT prophylaxis: lonenox 40 mg SQ Subjective Date/time seen: 06/10/24 08:41 Interval history: 68-year-old female with PMH/o COPD, diabetes, hypothyroidism and hypertension, who admitted from ED for c/o loss of balance and double vision for the past several days. Review of Systems Review of Systems: All systems reviewed & are unremarkable except as noted in HPI and below (h/p) Exam Narrative: AF HR 63 RR 19 SpO2 100 BP 136/52 General: female in no acute respiratory distress who is nontoxic appearing, lying semi recumbent in bed. HEENT: Normocephalic. Atraumatic. Pupils equal round reactive to light. Extraocular movement intact. Sclera clear and anicteric. No facial asymmetry. Chest: Lungs are clear to auscultation bilaterally. No wheezes or crackles. CV: Heart was regular rate and rhythm. S1-S2. No murmurs, gallops, or rubs. Abd: Abdomen was soft. Nontender. Nondistended. Positive bowel sounds. No organomegaly or masses. Ext: No clubbing, cyanosis, or edema. 2+ DP pulses bilaterally. Neuro: Patient is alert and oriented x4. Strength is 5/5 in both upper and lower extremities. Cranial nerves 2-12 are intact. Speech is clear. Objective Data Vital Signs Vital Signs: Vital Signs - 24 hr 06/09/24 10:00 06/09/24 11:52 06/09/24 12:00 Temperature 98.1 F Pulse Rate 67 74 72 Respiratory Rate
[2024-06-10] MEDS: POTASSIUM CHLORIDE 20 MEQ ER TABLET 40 MEQ PO (09:11)
[2024-06-10] MEDS: buPROPion HCL XL (24 HR) 150 MG TABCR 300 MG PO (09:12)
[2024-06-10] MEDS: ATORVASTATIN 20 MG TABLET PO (09:12)
[2024-06-10] MEDS: POTASSIUM CHLORIDE 20 MEQ PACKET (FOR LIQUID) 40 MEQ PO (09:12)
[2024-06-10] MEDS: PANTOPRAZOLE 40 MG TABLET PO (09:13)
[2024-06-10] MEDS: valACYclovir HCL 500 MG TABLET 1000 MG PO (09:13)
[2024-06-10] MEDS: rOPINIRole HCL 1 MG TABLET PO (09:14)
[2024-06-10] MEDS: DULoxetine HCL 60 MG CAPSULE.DR PO (09:15)
[2024-06-10] MEDS: TRIAMCINOLONE ACET 0.1% CREAM 15 GM TUBE 1 APPLIC TOPICAL (09:17)
--- NOTE | 2024-06-10 10:20 | WPDNEUROPN ---
Progress Note: A&P Assessment and Plan (1) Diabetic neuropathy: Code(s): E11.40 - Type 2 diabetes mellitus with diabetic neuropathy, unspecified Status: Acute (2) Ataxia: Code(s): R27.0 - Ataxia, unspecified Status: Acute (3) Double vision: Code(s): H53.2 - Diplopia Status: Acute (4) Insulin dependent type 2 diabetes mellitus: Code(s): E11.9 - Type 2 diabetes mellitus without complications; Z79.4 - custodial (current) use of insulin Status: Acute (5) Obstructive sleep apnea: Code(s): G47.33 - Obstructive sleep apnea (adult) (pediatric) Status: Acute (6) Fibromyalgia: Code(s): M79.7 - Fibromyalgia Status: Chronic Plan Patient has symptoms of diplopia and imbalance and occasional headache. She had surgery on the cervical spine 2002. She suffer from diabetes mellitus and obstructive sleep apnea syndrome. Based upon overall evaluation I think the test she requires continued physical therapy and gait strengthening to prevent fall. CT angiogram of the head and neck was normal. MRI of the brain was performed this morning which also did not show any abnormalities. Prior to that she has had MRI of the brain and CT angiogram of head and neck in November 2023. MRI of the lumbosacral spine was performed on 11/27/2023 which shows mild lumbar spondylosis stable compared to the previous examination on 03/18/2022. The patient may also have deconditioning and attention to pain and conditioning help. With regard to diplopia I did not find any significant focal deficit however I will go ahead and order a acetylcholine receptor antibody. Subjective Date/time seen: 06/10/24 10:20 Interval history: Patient is 68-year-old with complaints of headache and dizziness. Headaches are better however she is feeling dizzy. She states that she was very blurry and had difficulty seeing because the symptoms. Patient has history of diabetes mellitus and obstructive sleep apnea syndrome and she has had a surgeon cervical spine 2002. She was seen by Dr. Hull 2 days ago. Previous reports and consultation and investigations were reviewed. Patient has had issue with the balance and diplopia on and off. She has difficulty with ambulation. Physical therapy was about start working on her today. Patient does admit that she is not able to exercise or walk on a regular basis. Patient has had MRI of the brain and cervical spine and lumbar spine this year and the results were reviewed. CT angiogram of the head and neck was performed which did not show any abnormality on this admission. Review of Systems Review of Systems: All systems reviewed & are unremarkable except as noted in HPI and below Exam Narrative: Fully conscious , alert and oriented. no aphasia or dysarthria. Cranial nerves used intact. No nystagmus intention tremors were noted. Normal strength in upper and lower limbs. Deep tendon reflexes the knees and ankles appear decreased but no asymmetry was noted. No involuntary movements are seen. Sensory is grossly intact. Objective Data Vital Signs Vital Signs: Vital Signs - 24 hr 06/09/24 11:52 06/09/24 12:00 06/09/24 12:00 Temperature 98.1 F Pulse Rate 74 72 Respiratory Rate 16 Blood Pressure 112/52 L Pulse Oximetry 98 Oxygen Delivery Room Air 06/09/24 14:00 06/09/24 16:00 06/09/24 16:00 Temperature 98.0 F Pulse Rate 75 70 70 Respiratory Rate 20 Blood Pressure 151/74 H Pulse Oximetry 97 Oxygen Delivery 06/09/24 18:00 06/09/24 19:37 06/09/24 20:02 Temperature 98.2 F Pulse Rate 68 78 75 Respiratory Rate 20 Blood Pressure 138/63 Pulse Oximetry 97 Oxygen Delivery 06/09/24 20:00 06/09/24 20:00 06/09/24 21:31 Temperature 97.0 F L Pulse Rate 75 70 Respiratory Rate 16 Blood Pressure 111/74 Pulse Oximetry 97 Oxygen Delivery Room Air 06/09/24 23:53 06/10/24 00:00 06/10/24 04:00 Temperature
[2024-06-10 11:13] LABS: Creatine Kinase 40 U/L (30-135)
[2024-06-10 11:38] LABS: Vitamin D 25 Hydroxy 29.1 ng/mL
[2024-06-10 11:45] VITALS: BP 136/52; PULSE 63; RESP 19; TEMP 35.4; O2SAT 100
[2024-06-10 11:46] LABS: Glucose Point of Care 204 mg/dl (65-105)
--- NOTE | 2024-06-10 11:55 | PC.NURSE ---
On 06/10/24, the student, [Peter Barrios], provided care and completed [facility] documentation on this patient. I have reviewed the student's documentation and agree with the findings.
[2024-06-10 12:00] VITALS: PULSE 68
[2024-06-10] MEDS: INSULIN ASPART (*BKC) 100 UNITS/ML SUB-Q (12:21)
--- NOTE | 2024-06-10 14:12 | PM.DS ---
DS: Admitting Diagnosis Discharge Date 06/10/2024 Admitting Diagnosis ataxia acute hypokalemia GERD chronic pain degenerative disc disease insulin dependent type 2 diabetes DS: Discharge Diagnosis Discharge Diagnosis (1) Ataxia: Code(s): R27.0 - Ataxia, unspecified Status: Acute (2) Acute hypokalemia: Code(s): E87.6 - Hypokalemia Status: Acute (3) GERD (gastroesophageal reflux disease): Qualifiers: Esophagitis presence: esophagitis presence not specified Qualified Code(s): K21.9 - Gastro-esophageal reflux disease without esophagitis Code(s): K21.9 - Gastro-esophageal reflux disease without esophagitis Status: Acute (4) Chronic pain disorder: Code(s): G89.4 - Chronic pain syndrome Status: Acute (5) Degenerative disc disease, cervical: Code(s): M50.30 - Other cervical disc degeneration, unspecified cervical region Status: Acute (6) Insulin dependent type 2 diabetes mellitus: Code(s): E11.9 - Type 2 diabetes mellitus without complications; Z79.4 - exterminator helper termite (current) use of insulin Status: Acute DS: Summary Hospital Course Reason for hospitalization: ataxia acute hypokalemia GERD chronic pain degenerative disc disease insulin dependent type 2 diabetes Hospital Course: 68-year-old female with PMH/o COPD, diabetes, hypothyroidism and hypertension, who admitted from ED for c/o loss of balance and double vision for the past several days. On admission her labs were primary unremarkable besides a potassium of 2.8. She received supplementation and was started on daily potassium at time of discharge with plan to follow up with her PCP. UDS negative. Chest x-ray negative for acute cardiopulmonary process. Head/neck CTA showed 0% stenosis of the right and left carotid bulbs and mild scattered white matter hypoattenuation consistent with chronic small vessel disease. No acute intracranial process was seen. Unremarkable cerebral CT angiogram with no aneurysm, thrombosis or hemodynamically significant stenosis. A brain MRI was normal and B12 was WNL. Neurology was consulted. Per neurology the ataxia seems to be more so related to deconditioning and attention to pain. They recommend continued therapy. patient worked with PT /OT during her admission and ataxia was not noted , they are recommending home health services at time of discharge. As for the patients diplopia no focal deficit was seen but an acetylcholine receptor antibody was obtained by neurology. Prior to discharge patient denies any headaches or vision changes. She also denied chest pain, shortness a breath, nausea/ vomiting, and abdominal pain. patient discharged home with home health in a stable condition. She has a follow-up with her primary care provider in 1 week. Status at Discharge Functional status at discharge: independent ambulation Time Spent with Patient Time attestation: Total time spent providing and/or coordinating discharge services: Time spent: Greater than 30 minutes Exam Narrative: AF HR 63 RR 19 SpO2 100 BP 136/52 General: female in no acute respiratory distress who is nontoxic appearing, lying semi recumbent in bed. HEENT: Normocephalic. Atraumatic. Pupils equal round reactive to light. Extraocular movement intact. Sclera clear and anicteric. No facial asymmetry. Chest: Lungs are clear to auscultation bilaterally. No wheezes or crackles. CV: Heart was regular rate and rhythm. S1-S2. No murmurs, gallops, or rubs. Abd: Abdomen was soft. Nontender. Nondistended. Positive bowel sounds. No organomegaly or masses. Ext: No clubbing, cyanosis, or edema. 2+ DP pulses bilaterally. Neuro: Patient is alert and oriented x4. Strength is 5/5 in both upper and lower extremities. Cranial nerves 2-12 are intact. Speech is clear. DS: Data Data Completed and Pending Completed studies during hospitalization: Brain MRI head/neck CTA chest x-ray Labs on day of di
[2024-06-15 08:04] LABS: Methylmalonic Acid 231 nmol/L (69-390)
== END 2024-06-10 15:10 | disposition home health service (06) | DRG 92 ==
LOC: ANHED 10:30 → ANHIMU 14:58 → ANH3MEDSUR 06-10 06:45 → ANHIMU 06-12 11:11
PROVIDERS: Nurse Practitioner; Psychiatry & Neurology Neurology; Admitting Provider Internal Medicine; Emergency Provider Preventive Medicine Aerospace Medicine; PCP Family Medicine; Visit Provider Student in an Organized Health Care Education/Training Program
DX: R27.0 Ataxia, unspecified (principal); G95.89 Other specified diseases of spinal cord; J44.9 Chronic obstructive pulmonary disease, unspecified; I10 Essential (primary) hypertension; E03.9 Hypothyroidism, unspecified; E78.2 Mixed hyperlipidemia; E11.42 Type 2 diabetes mellitus with diabetic polyneuropathy; E87.6 Hypokalemia; K58.0 Irritable bowel syndrome with diarrhea; K21.9 Gastro-esophageal reflux disease without esophagitis; K57.30 Diverticulosis of large intestine without perforation or abscess without bleeding; K76.0 Fatty (change of) liver, not elsewhere classified; L90.0 Lichen sclerosus et atrophicus; M51.369 Other intervertebral disc degeneration, lumbar region without mention of lumbar back pain or lower extremity pain; M50.30 Other cervical disc degeneration, unspecified cervical region; M79.7 Fibromyalgia; G89.4 Chronic pain syndrome; G25.81 Restless legs syndrome; G47.33 Obstructive sleep apnea (adult) (pediatric); H53.2 Diplopia; F32.A Depression, unspecified; F41.1 Generalized anxiety disorder; Z87.442 Personal history of urinary calculi; Z79.4 Long term (current) use of insulin
CPT/HCPCS: 36415; 70496; 70498; 70551; 71046; 80048; 80053; 80307; 81003; 82077; 82306; 82550; 82607; 82746; 82948; 83036; 83735; 83921; 84443; 84484; 85025; 93005; 97161; 97165; 99285; A9270; J1815; J3480; J7040; Q9967

== ENCOUNTER 2024-07-16 11:23 | Emergency (ER) | payer MEDICARE, SELFPAY ==
--- NOTE | ~2024-07-16 | XR_ITS ---
3 VIEWS LUMBAR SPINE Ordering provider: Jim Garza MD History: . low back pain X 20+ YRS, WORSENING . Comparison: None. FINDINGS: VERTEBRAL BODIES: No visible fracture or subluxation. Degenerative changes of the spine. Levoscoliosi s. Bending of the coccyx. DISK SPACES: Narrowing of the disc L1-L2, L4-L5 and L5-S1. Facet joint disease at the level of L5-S1 SOFT TISSUES: Aortic atherosclerotic changes. IMPRESSION: No acute osseous abnormality lumbar spine. Multilevel degenerative disc disease. Reviewed, dictated and finalized at location A. TH INFORMATION MANAGER
[2024-07-16 11:45] VITALS: BP 155/113; PULSE 92; RESP 17; TEMP 36.5; O2SAT 97
--- NOTE | 2024-07-16 12:39 | ED.GENADULT ---
HPI - General Adult General Chief complaint: Back Pain/Injury Stated complaint: lower back pain Time Seen by Provider: 07/16/24 12:20 History of Present Illness HPI narrative: 68-year-old female present to the emergency department for evaluation for acute on chronic back pain. Patient states she does typically have lower back pain but feels that it is been worsening. Patient does have a history of remote falls but denies any recent falls or injuries. Patient denies any change in bowel or bladder habits. Related Data Home Medications Medication Instructions Recorded Confirmed clobetasol 0.05 % topical cream 1 applic topical DAILY PRN 06/27/22 06/18/24 irritation triamcinolone acetonide 0.1 % 1 applic topical BID PRN Skin 06/27/22 06/18/24 topical cream Irritation cyclosporine 0.05 % eye drops 1 drp EACH EYE Q12H PRN Dry Eyes 11/25/23 06/18/24 (Restasis MultiDose) alprazolam 1 mg tablet 1 mg PO Q12H PRN anxiety 06/08/24 06/18/24 atenolol 50 mg tablet 75 mg PO HS 06/08/24 06/18/24 bismuth subsalicylate 262 mg 2 tablet PO QID PRN Acid Reflux 06/08/24 06/18/24 chewable tablet glimepiride 4 mg tablet 4 mg PO QAM 06/08/24 06/18/24 insulin glargine 100 unit/mL 15 unit subcut HS 06/08/24 06/18/24 subcutaneous solution (Lantus U-100 Insulin) valacyclovir 1 gram tablet 1,000 mg PO TID PRN Cold Sores 06/08/24 06/18/24 ropinirole 1 mg tablet 1 mg PO BID 06/13/24 06/18/24 Allergies Allergy/AdvReac Type Severity Reaction Status Date / Time adhesive Allergy Unknown Unknown Verified 07/16/24 11:24 clarithromycin Allergy Unknown Unknown Verified 07/16/24 11:24 gabapentin Allergy Unknown Unknown Verified 07/16/24 11:24 metformin Allergy Unknown diarrhea Verified 07/16/24 11:24 neomycin Allergy Unknown Itching Verified 07/16/24 11:24 oseltamivir Allergy Unknown Unknown Verified 07/16/24 11:24 Penicillins Allergy Unknown Unknown Verified 07/16/24 11:24 Sulfa (Sulfonamide Allergy Unknown Unknown Verified 07/16/24 11:24 Antibiotics) latex Allergy Mild Hives Uncoded 07/16/24 11:24 Review of Systems Review of Systems: All systems reviewed & are unremarkable except as noted in HPI and below [facility] Past Medical History Medical History (Updated 07/17/24 @ 00:00 by Background Daemon) Abscess Allergic dermatitis Asthma Basal cell carcinoma Cristina infection Chronic diarrhea Chronic pain disorder Degenerative disc disease, cervical Degenerative disc disease, lumbar Depression Diverticulitis of sigmoid colon Essential (primary) hypertension Fibromyalgia Forgetfulness Frequent falls Generalized anxiety disorder GERD without esophagitis Glucosuria Helicobacter positive gastritis Hepatic steatosis History of abnormal mammogram History of kidney stones Hyperlipemia, mixed Hypothyroidism Irritable bowel syndrome with diarrhea Lichen sclerosus Morbid (severe) obesity due to excess calories Nasal lesion Obstructive sleep apnea (adult) (pediatric) Likely obstructive sleep apnea however patient has not have polysomnogram Pain aggravated by physical activity Panic attacks Postmenopausal Renal cyst, left Restless leg syndrome Screening for osteoporosis Skin exam for malignant neoplasm Type 2 diabetes mellitus with diabetic neuropathy Ulnar neuropathy at elbow Urinary incontinence in female Surgical History Surgical History History of appendectomy (~1980) History of carpal tunnel surgery History of cervical discectomy History of cholecystectomy (~1995) History of colonoscopy with polypectomy History of dental surgery History of lithotripsy (~2001) History of sinus surgery History of tonsillectomy History of total hysterectomy with bilateral salpingo-oophorectomy (BSO) (~1980) Family History Family History Father Hypertension Cerebrovascular accident Family history of suicide, Onset Age: 72 Mother Family history of malignant neoplasm Family history of primary malignant neoplasm of liver, Onset Age: 50 Liver cancer Grandparent Cerebrovascular accident Sibling Patient's brother is in good health Patient's sister is Daughter Abscess Other Diabetes mellitus Social History Social History Social History: Surrogate medical decision maker: Estefanía Gutierrez and Dalila Oconnor (daughters). Code status: Full code. Smoking status: Never smoker Second hand tobacco smoke exposure: Yes Alcohol intake: never Drinks per week: 1 Alcohol use details: Occasional Substance use: never Substance use type: does not use Other substance usage details: CBD Last use: cbd gummies Do You Feel Safe in your Home?: Yes Lack of Transportation: No Lack of Food: Never True Current Housing: I Have Housing Concerned About Future Housing: No Difficulty Paying Gas/Electric Bills: No Difficulty Paying for Meds: No Currently Unemployed: No Education: Associate Degree Difficulty w/ Childcare or Family Care: No Living arrangements: alone Additional living arrangements comments: fall 2022. 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 HEAD: normocephalic, atraumatic. EYES: PERRLA/EOMI, conjunctivae clear. NOSE: Normal no drainage EARS:TMS clear with good light reflex. THROAT: Pharynx clear, no exudate. NECK: Supple. No adenopathy, no masses. RESPIRATORY: Airway patent, respirations nonlabored. Clear to auscultation bilaterally, no rales, rhonchi, wheezing. CARDIOVASCULAR: Regular rate and rhythm without murmurs rubs or gallops. ABDOMINAL: Soft, nontender, nondistended, normal bowel sounds MUSCULOSKELETAL: Midline lower back tenderness to palpation with no deformity NEURO: Alert. Cranial nerves II through XII intact. Good gait. Good coordination SKIN: Warm, dry. Normal Color Course Vital Signs Vital signs: Vital Signs Temperature 97.7 F 07/16/24 11:45 Pulse Rate 92 07/16/24 11:45 Respiratory Rate 17 07/16/24 11:45 Blood Pressure 155/113 H 07/16/24 11:45 Pulse Oximetry 97 07/16/24 11:45 Oxygen Delivery Room Air 07/16/24 11:45 Temperature 98.1 F 07/16/24 14:07 Pulse Rate 91 07/16/24 14:07 Respiratory Rate 17 07/16/24 14:07 Blood Pressure 131/85 07/16/24 14:07 Pulse Oximetry 96 07/16/24 14:07 Oxygen Delivery Room Air 07/16/24 11:45 Medical Decision Making MDM Narrative Medical decision making narrative: 60-year-old female presents to the emergency department for evaluation for acute on chronic lower back pain. Patient denies any recent falls or injuries. UA shows no significant urinary tract infection. Urinary culture was ordered. Lumbar x-ray shows no acute fracture dislocation. Patient was provided narcotic pain medication and Flexeril for increased pain relief at home. Patient was encouraged of close follow-up with her primary care physician P Differential Diagnosis Differential Diagnosis: Back strain, deconditioning, arthritis Vital Signs Vital Signs: Vital Signs Temperature 97.7 F 07/16/24 11:45 Pulse Rate 92 07/16/24 11:45 Respiratory Rate 17 07/16/24 11:45 Blood Pressure 155/113 H 07/16/24 11:45 Pulse Oximetry 97 07/16/24 11:45 Oxygen Delivery Room Air 07/16/24 11:45 Temperature 98.1 F 07/16/24 14:07 Pulse Rate 91 07/16/24 14:07 Respiratory Rate 17 07/16/24 14:07 Blood Pressure 131/85 07/16/24 14:07 Pulse Oximetry 96 07/16/24 14:07 Oxygen Delivery Room Air 07/16/24 11:45 Lab Data Lab results reviewed: Yes I reviewed the patient's lab results. Labs: Lab Results 07/16/24 Range/Units 11:53 Urine Color Dark yellow (Yellow) Urine Appearance Cloudy H (Clear) Urine pH 6.5 (5.0-9.0) Ur Specific [place] 1.041 H (1.001-1.035) Urine Protein 2+ H (Negative) mg/dL Urine Glucose (UA) 2+ H (Negative) mg/dL Urine Ketones 1+ H (Negative) mg/dL Ur Blood (Man) Negative (Negative) Urine Nitrate Negative (Negative) Urine Bilirubin 1+ H (Negative) Urine Urobilinogen 1.0 (<2.0) mg/dL Add Ur Microanalysis Reviewed Leukocyte Esterase Rfl Negative (Negative) SUSAN/UL Urine RBC 0-2 (0-2) /hpf Urine WBC 0-5 (0-3) /hpf Ur Squamous Epith Cells Moderate (Few) /hpf Urine Bacteria 1+ H /hpf Urine Casts 11-20 Discharge Plan Discharge Clinical Impression: Acute exacerbation of chronic low back pain Patient Disposition: Home, Self-Care Condition: Stable Instructions: Antibiotic Form, Back Pain (ED) Additional Instructions: Flexeril for muscle spasm. [place] for back pain. Have close follow-up with primary care physician. If you have any worsening symptoms then please call or return to the emergency department. Prescriptions: New hydrocodone-acetaminophen 5-325 mg tablet 1 tablet PO Q12H PRN (Reason: pain) Qty: 14 0RF No Action duloxetine [Cymbalta] 60 mg capsule,delayed release(DR/EC) 60 mg PO DAILY Qty: 180 0RF dapagliflozin propanediol [Farxiga] 5 mg tablet 5 mg PO DAILY Qty: 90 1RF tirzepatide 5 mg/0.5 mL pen injector 5 mg SUBCUT WEEKLY Qty: 2 2RF Rx Instructions: for 4 weeks atorvastatin 20 mg tablet 20 mg PO DAILY Qty: 30 6RF bupropion HCl 300 mg tablet extended release 24 hr 300 mg PO QAM Qty: 30 3RF nystatin 100,000 unit/gram powder 1 applic topical TID PRN (Reason: Itching) Qty: 30 1RF ropinirole 1 mg tablet 1 mg PO BID cholecalciferol (vitamin D3) 1,250 mcg (50,000 unit) capsule 1,250 mcg PO WEEKLY Qty: 8 0RF Systane Complete 0.6 % drops 1 drp EACH EYE TID PRN (Reason: dry eye(s)) Qty: 5 0RF (DME) blood-glucose meter [Accu-Chek Guide Glucose Meter] Misc See Rx Instructions .Route Qty: 1 0RF Rx Instructions: As directed for diabetes clobetasol 0.05 % cream 1 applic TOPICAL DAILY PRN (Reason: irritation) Rx Instructions: vaginal area triamcinolone acetonide 0.1 % cream 1 applic topical BID PRN (Reason: Skin Irritation) insulin glargine [Lantus U-100 Insulin] 100 unit/mL solution 15 unit SUBCUT HS valacyclovir 1 gram Tablet 1,000 mg PO TID PRN (Reason: Cold Sores) glimepiride 4 mg Tablet 4 mg PO QAM Rx Instructions: administer with breakfast bismuth subsalicylate 262 mg Tablet,Chewable 2 tablet PO QID PRN (Reason: Acid Reflux) alprazolam 1 mg tablet 1 mg PO Q12H PRN (Reason: anxiety) atenolol 50 mg tablet 75 mg PO HS Rx Instructions: Takes med before bed potassium chloride 20 mEq Packet 40 meq PO DAILY Qty: 30 0RF Restasis MultiDose 0.05 % drops 1 drp EACH EYE Q12H PRN (Reason: Dry Eyes) Rx Instructions: Uses PRN albuterol sulfate 90 mcg/actuation HFA aerosol inhaler 2 puff inhalation Q4H PRN (Reason: Shortness Of Breath) Qty: 8.5 5RF Rx Instructions: INHALE 2 PUFFS EVERY 4 HOURS NEEDED FOR SHORTNESS OF BREATH OR WHEEZING (DME) Accu-Chek Guide test strips Strip See Rx Instructions .ROUTE .MEDSUPPLY Qty: 100 0RF Rx Instructions: Check glucose bid for diabetes levothyroxine 88 mcg tablet 88 mcg PO DAILY Qty: 90 0RF albuterol sulfate 2.5 mg /3 mL (0.083 %) solution for nebulization 2.5 mg INHALATION Q4-6H PRN (Reason: shortness of breath or wheezing) Qty: 75 2RF insulin aspart U-100 [Novolog U-100 Insulin aspart] 100 unit/mL solution 1 sliding scale dose subcut USEASDIRECTD Qty: 10 1RF omeprazole 40 mg capsule,delayed release(DR/EC) 40 mg PO DAILY Qty: 30 2RF ondansetron HCl 4 mg tablet 4 mg PO Q8H PRN (Reason: nausea and vomiting) Qty: 30 2RF cyclobenzaprine 5 mg tablet 5 mg PO DAILY PRN (Reason: muscle spasm) Qty: 20 0RF Follow-up/Referrals: Sam Delgado MD [Primary Care Provider] -
[2024-07-16 12:41] LABS: Add Urine Microscopic? YES; Appearance Urine Cloudy (Clear); Bacteria Urine 1+ /hpf; Bilirubin Urine 1+ (Negative); Blood Urine Negative (Negative); Color Urine Dark Yellow (Yellow); Glucose Urine UA 2+ mg/dL (Negative); Ketones Urine 1+ mg/dL (Negative); Leukocyte Esterase Ur Negative LEU/UL (Negative); Need Manual Microscopic Reviewed; Nitrate Urine Negative (Negative); Protein Urine 2+ mg/dL (Negative); RBC Urine 0-2 /hpf (0-2); Specific Grav Ur 1.041 (1.001-1.035); Squamous Epithelial Cell Urine Moderate /hpf (Few); WBC Urine 0-5 /hpf (0-3); pH Urine 6.5 (5.0-9.0)
[2024-07-16] MEDS: KETOROLAC 30 MG/ML VIAL (*BKC) IM (12:57)
[2024-07-16] MEDS: HYDROcodone/acetaminophen (*CRX) 5-325 MG TABLET 1 TAB PO (12:58)
[2024-07-16 14:07] VITALS: BP 131/85; PULSE 91; RESP 17; TEMP 36.7; O2SAT 96
== END 2024-07-16 14:08 | disposition home or self-care (01) ==
PROVIDERS: Emergency Provider Emergency Medicine; PCP Family Medicine
DX: M54.50 Low back pain, unspecified (principal); G89.29 Other chronic pain; J45.909 Unspecified asthma, uncomplicated; F32.A Depression, unspecified; I10 Essential (primary) hypertension; F41.9 Anxiety disorder, unspecified; K21.9 Gastro-esophageal reflux disease without esophagitis; K76.0 Fatty (change of) liver, not elsewhere classified; E78.5 Hyperlipidemia, unspecified; E03.9 Hypothyroidism, unspecified; G47.30 Sleep apnea, unspecified; E11.9 Type 2 diabetes mellitus without complications; Z79.4 Long term (current) use of insulin
CPT/HCPCS: 72100; 81001; 96372; 99283; A9270; J1885

== ENCOUNTER 2024-07-18 13:47 | Emergency (ER) | payer MEDICARE, SELFPAY ==
--- NOTE | ~2024-07-18 | CT_ITS ---
EXAMINATION: CT abdomen pelvis wo con DATE: 07/18/2024 15:04 INDICATION: Left lower quadrant abdominal and back pain TECHNIQUE: Computed tomography (CT) of the abdomen and pelvis was performed without intravenous contr ast. Automated exposure control and iterative reconstruction technique were employed. The dose-length product was 1025.10 mGy-cm. COMPARISON: None FINDINGS: Mild discoid atelectasis in the left lower lobe and lingula. Heart size is normal. Atherosclerotic co ronary artery calcification. No pericardial or pleural effusion. Cholecystectomy clips at gallbladder fossa. Liver, spleen, pancreas and bilateral adrenal glands are normal. Bilateral nonobstructing nep hrolithiasis with 3 stones measuring up to 3-4 mm and single 1 mm stone at a lower pole calyx of the left kidney. No ureteral stones or hydronephrosis. Mild scattered colonic diverticulosis. There is fo yaneth wall thickening at the mid sigmoid colon with mild stranding extending adjacent left pelvic retro peritoneal fat. No bowel obstruction. The appendix is not visualized. No pericecal inflammatory rosas e to suggest acute appendicitis. Bladder is normal. The uterus is not identified and has likely been surgically resected. Small fat-containing umbilical hernia. No free intraperitoneal gas or fluid. No pathologically enlarged abdominal or pelvic lymphadenopathy. Mild lumbar levoscoliosis with moderate lumbar and lower thoracic spondylosis. IMPRESSION: 1. Wall thickening and mild associated stranding along a short segment of the sigmoid colon suspiciou s for diverticulitis. If not recently performed would recommend follow-up colonoscopy when clinically appropriate to exclude colon cancer which could present similarly. 2. Nonobstructing bilateral nephrolithiasis. Reviewed, dictated and finalized at location B. [facility] IMPRESSION: 1. Wall thickening and mild associated stranding along a short segment of the s igmoid colon suspicious for diverticulitis. If not recently performed would rec ommend follow-up colonoscopy when clinically appropriate to exclude colon cance r which could present similarly. 2. Nonobstructing bilateral nephrolithiasis.
[2024-07-18 14:03] VITALS: BP 165/113; PULSE 116; RESP 18; TEMP 36.6; O2SAT 100
--- NOTE | 2024-07-18 14:34 | ED_ITS ---
HPI - Back Pain/Injury General Chief Complaint: Back Pain/Injury Stated Complaint: Lower Back pain, Here 3 days in a row Focused HPI: 68-year-old female presents to the emergency department for acute on chronic low back pain. Patient states the pain is in her lower back around to the left side. She was evaluated in our emergency department yesterday for back pain. She had a negative lumbar x-ray and urinalysis was discharged home with hydrocodone. She has been using this with improvement for a while and then the pain returns. Today she noticed pain in her left lower quadrant which is new from yesterday. She does report a history of kidney stones but denies dysuria, hematuria frequency or urgency. She denies fever. Denies recent injury trauma or back, saddle anesthesia, leg weakness. GENERAL: Well-appearing, well-nourished, and in no acute distress. HEAD: Normocephalic, atraumatic. CHEST: Clear to auscultation. ?No respiratory distress. HEART: Regular rate and rhythm.? NEURO: ?Alert and oriented x3. Patient screened in triage and initial orders placed.? ?Additional care and disposition to be based upon?diagnostic testing and treatment. Related Data Home Medications Medication Instructions Recorded Confirmed clobetasol 0.05 % topical cream 1 applic topical DAILY PRN 06/27/22 06/18/24 irritation triamcinolone acetonide 0.1 % 1 applic topical BID PRN Skin 06/27/22 06/18/24 topical cream Irritation cyclosporine 0.05 % eye drops 1 drp EACH EYE Q12H PRN Dry Eyes 11/25/23 06/18/24 (Restasis MultiDose) alprazolam 1 mg tablet 1 mg PO Q12H PRN anxiety 06/08/24 06/18/24 atenolol 50 mg tablet 75 mg PO HS 06/08/24 06/18/24 bismuth subsalicylate 262 mg 2 tablet PO QID PRN Acid Reflux 06/08/24 06/18/24 chewable tablet glimepiride 4 mg tablet 4 mg PO QAM 06/08/24 06/18/24 insulin glargine 100 unit/mL 15 unit subcut HS 06/08/24 06/18/24 subcutaneous solution (Lantus U-100 Insulin) valacyclovir 1 gram tablet 1,000 mg PO TID PRN Cold Sores 06/08/24 06/18/24 ropinirole 1 mg tablet 1 mg PO BID 06/13/24 06/18/24 Allergies Allergy/AdvReac Type Severity Reaction Status Date / Time adhesive Allergy Unknown Unknown Verified 07/18/24 13:48 clarithromycin Allergy Unknown Unknown Verified 07/18/24 13:48 gabapentin Allergy Unknown Unknown Verified 07/18/24 13:48 metformin Allergy Unknown diarrhea Verified 07/18/24 13:48 neomycin Allergy Unknown Itching Verified 07/18/24 13:48 oseltamivir Allergy Unknown Unknown Verified 07/18/24 13:48 Penicillins Allergy Unknown Unknown Verified 07/18/24 13:48 Sulfa (Sulfonamide Allergy Unknown Unknown Verified 07/18/24 13:48 Antibiotics) latex Allergy Mild Hives Uncoded 07/18/24 13:48 [facility] Past Medical History Medical History Abscess Allergic dermatitis Asthma Basal cell carcinoma Cristina infection Chronic diarrhea Chronic pain disorder Degenerative disc disease, cervical Degenerative disc disease, lumbar Depression Diverticulitis of sigmoid colon Essential (primary) hypertension Fibromyalgia Forgetfulness Frequent falls Generalized anxiety disorder GERD without esophagitis Glucosuria Helicobacter positive gastritis Hepatic steatosis History of abnormal mammogram History of kidney stones Hyperlipemia, mixed Hypothyroidism Irritable bowel syndrome with diarrhea Lichen sclerosus Morbid (severe) obesity due to excess calories Nasal lesion Obstructive sleep apnea (adult) (pediatric) Likely obstructive sleep apnea however patient has not have polysomnogram Pain aggravated by physical activity Panic attacks Postmenopausal Renal cyst, left Restless leg syndrome Screening for osteoporosis Skin exam for malignant neoplasm Type 2 diabetes mellitus with diabetic neuropathy Ulnar neuropathy at elbow Urinary incontinence in female Surgical History Surgical History History of appendectomy (~1980) History of carpal tunnel surgery History of cervical discectomy History of cholecystectomy (~1995) History of colonoscopy with polypectomy History of dental surgery History of lithotripsy (~2001) History of sinus surgery History of tonsillectomy History of total hysterectomy with bilateral salpingo-oophorectomy (BSO) (~1980) Family History Family History Father Hypertension Cerebrovascular accident Family history of suicide, Onset Age: 72 Mother Family history of malignant neoplasm Family history of primary malignant neoplasm of liver, Onset Age: 50 Liver cancer Grandparent Cerebrovascular accident Sibling Patient's brother is in good health Patient's sister is Daughter Abscess Other Diabetes mellitus Social History Social History Social History: Surrogate medical decision maker: Estefanía Gutierrez and Dalila Oconnor (daughters). Code status: Full code. Smoking status: Never smoker Second hand tobacco smoke exposure: Yes Alcohol intake: never Drinks per week: 1 Alcohol use details: Occasional Substance use: never Substance use type: does not use Other substance usage details: CBD Last use: cbd gummies Do You Feel Safe in your Home?: Yes Lack of Transportation: No Lack of Food: Never True Current Housing: I Have Housing Concerned About Future Housing: No Difficulty Paying Gas/Electric Bills: No Difficulty Paying for Meds: No Currently Unemployed: No Education: Associate Degree Difficulty w/ Childcare or Family Care: No Living arrangements: alone Additional living arrangements comments: fall 2022. 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 Lab Data 07/18/24 16:30 07/18/24 16:30 Labs: Lab Results 07/18/24 Range/Units 16:30 WBC 12.8 H (4.5-10.0) K/mm3 RBC 5.69 H (4.2-5.4) M/mm3 Hgb 15.6 H D (12.0-15.0) g/dL Hct 47.7 H (37.0-47.0) % MCV 83.8 (80-100) fl MCH 27.4 (26-34) pg MCHC 32.7 (32-36) g/dl RDW 15.4 H (11.5-14.5) % Plt Count 244 (150-375) k/mm3 MPV 11.7 H (7.4-10.4) fl Immature Gran % (Auto) 0.5 (0-0.5) % Neut % (Auto) 61.7 (45.5-73.1) % Lymph % (Auto) 30.2 (18.3-44.2) % [place] % (Auto) 5.0 (2.6-8.5) % Eos % (Auto) 2.2 (0-4.4) % Baso % (Auto) 0.4 (0.2-1.2) % Lymph # (Auto) 3.88 H (0.9-3.2) K/mm3 [place] # (Auto) 0.6 (0.1-0.6) K/mm3 Eos # (Auto) 0.3 (0-0.3) K/mm3 Baso # (Auto) 0.1 (0.0-0.1) K/mm3 Abs Immat Gran (auto) 0.06 H (0.00-0.031) K/mm3 Absolute Neuts (auto) 7.9 H (1.3-6.7) K/mm3 Absolute Nucleated RBC 0.000 (0.0-0.012) K/mm3 Nucleated RBC % 0.0 (0.0-0.2) % Sodium 138 (137-145) mmol/L Potassium 3.8 (3.4-5.0) mmol/L Chloride 102 (98-107) mmol/L Carbon Dioxide 26 (22-30) mmol/L Anion Gap 10 (4-12) mmol/L BUN 15 D (7-17) mg/dL Creatinine 0.70 (0.7-1.0) mg/dL Estim Creat Clear Calc 66 ml/min Estimated GFR > 60 (59 - ) Glucose 245 H (65-110) mg/dL Calcium 9.9 (8.4-10.2) mg/dL Total Bilirubin 0.3 (0.2-1.3) mg/dL AST 19 (14-36) U/L ALT 14 (6-35) U/L Alkaline Phosphatase 131 H (38-126) U/L Total Protein 8.0 (6.3-8.2) g/dL Albumin 4.4 (3.5-5.1) g/dL Lipase 62 (23-300) U/L Urine Color Yellow (Yellow) Urine Appearance Cloudy H (Clear) Urine pH 5.5 (5.0-9.0) Ur Specific [place] 1.040 H (1.001-1.035) Urine Protein 1+ H (Negative) mg/dL Urine Glucose (UA) 2+ H (Negative) mg/dL Urine Ketones Trace H (Negative) mg/dL Ur Blood (Man) Negative (Negative) Urine Nitrate Negative (Negative) Urine Bilirubin Negative (Negative) Urine Urobilinogen 1.0 (<2.0) mg/dL Add Ur Microanalysis Reviewed Leukocyte Esterase Rfl Negative (Negative) SUSAN/UL Urine RBC 3-5 H (0-2) /hpf Urine WBC 21-50 H (0-3) /hpf Ur Squamous Epith Cells Few (Few) /hpf Calcium Oxalate Crystal Present (None) /hpf Urine Bacteria 4+ H /hpf Urine Casts 0-2 Discharge Plan Discharge Clinical Impression: Acute on chronic low back pain Patient Disposition: Elopement After Seen by Prov Condition: Stable Prescriptions: No Action duloxetine [Cymbalta] 60 mg capsule,delayed release(DR/EC) 60 mg PO DAILY Qty: 180 0RF dapagliflozin propanediol [Farxiga] 5 mg tablet 5 mg PO DAILY Qty: 90 1RF tirzepatide 5 mg/0.5 mL pen injector 5 mg SUBCUT WEEKLY Qty: 2 2RF Rx Instructions: for 4 weeks atorvastatin 20 mg tablet 20 mg PO DAILY Qty: 30 6RF bupropion HCl 300 mg tablet extended release 24 hr 300 mg PO QAM Qty: 30 3RF nystatin 100,000 unit/gram powder 1 applic topical TID PRN (Reason: Itching) Qty: 30 1RF ropinirole 1 mg tablet 1 mg PO BID cholecalciferol (vitamin D3) 1,250 mcg (50,000 unit) capsule 1,250 mcg PO WEEKLY Qty: 8 0RF Systane Complete 0.6 % drops 1 drp EACH EYE TID PRN (Reason: dry eye(s)) Qty: 5 0RF (DME) blood-glucose meter [Accu-Chek Guide Glucose Meter] Misc See Rx Instructions .Route Qty: 1 0RF Rx Instructions: As directed for diabetes clobetasol 0.05 % cream 1 applic TOPICAL DAILY PRN (Reason: irritation) Rx Instructions: vaginal area triamcinolone acetonide 0.1 % cream 1 applic topical BID PRN (Reason: Skin Irritation) insulin glargine [Lantus U-100 Insulin] 100 unit/mL solution 15 unit SUBCUT HS valacyclovir 1 gram Tablet 1,000 mg PO TID PRN (Reason: Cold Sores) glimepiride 4 mg Tablet 4 mg PO QAM Rx Instructions: administer with breakfast bismuth subsalicylate 262 mg Tablet,Chewable 2 tablet PO QID PRN (Reason: Acid Reflux) alprazolam 1 mg tablet 1 mg PO Q12H PRN (Reason: anxiety) atenolol 50 mg tablet 75 mg PO HS Rx Instructions: Takes med before bed potassium chloride 20 mEq Packet 40 meq PO DAILY Qty: 30 0RF hydrocodone-acetaminophen 5-325 mg tablet 1 tablet PO Q12H PRN (Reason: pain) Qty: 14 0RF Restasis MultiDose 0.05 % drops 1 drp EACH EYE Q12H PRN (Reason: Dry Eyes) Rx Instructions: Uses PRN albuterol sulfate 90 mcg/actuation HFA aerosol inhaler 2 puff inhalation Q4H PRN (Reason: Shortness Of Breath) Qty: 8.5 5RF Rx Instructions: INHALE 2 PUFFS EVERY 4 HOURS NEEDED FOR SHORTNESS OF BREATH OR WHEEZING (DME) Accu-Chek Guide test strips Strip See Rx Instructions .ROUTE .MEDSUPPLY Qty: 100 0RF Rx Instructions: Check glucose bid for diabetes levothyroxine 88 mcg tablet 88 mcg PO DAILY Qty: 90 0RF albuterol sulfate 2.5 mg /3 mL (0.083 %) solution for nebulization 2.5 mg INHALATION Q4-6H PRN (Reason: shortness of breath or wheezing) Qty: 75 2RF insulin aspart U-100 [Novolog U-100 Insulin aspart] 100 unit/mL solution 1 sliding scale dose subcut USEASDIRECTD Qty: 10 1RF omeprazole 40 mg capsule,delayed release(DR/EC) 40 mg PO DAILY Qty: 30 2RF ondansetron HCl 4 mg tablet 4 mg PO Q8H PRN (Reason: nausea and vomiting) Qty: 30 2RF cyclobenzaprine 5 mg tablet 5 mg PO DAILY PRN (Reason: muscle spasm) Qty: 20 0RF Follow-up/Referrals: Sam Delgado MD [Primary Care Provider] -
[2024-07-18 16:41] LABS: Basophils Absolute Auto 0.1 K/mm3 (0.0-0.1); Basophils Percent Auto 0.4 % (0.2-1.2); Eosinophils Absolute Auto 0.3 K/mm3 (0-0.3); Eosinophils Percent Auto 2.2 % (0-4.4); Hematocrit 47.7 % (37.0-47.0); Hemoglobin 15.6 g/dL (12.0-15.0); Immature Granulocyte Absolute 0.06 K/mm3 (0.00-0.031); Immature Granulocyte Percent A 0.5 % (0-0.5); Lymphocytes Absolute Auto 3.88 K/mm3 (0.9-3.2); Lymphocytes Percent Auto 30.2 % (18.3-44.2); Mean Corpuscular HGB Conc 32.7 g/dl (32-36); Mean Corpuscular Hemoglobin 27.4 pg (26-34); Mean Corpuscular Volume 83.8 fl (80-100); Mean Platelet Volume 11.7 fl (7.4-10.4); Monocytes Absolute Auto 0.6 K/mm3 (0.1-0.6); Neutrophils Absolute Auto 7.9 K/mm3 (1.3-6.7); Neutrophils Percent Auto 61.7 % (45.5-73.1); Platelet Count Result 244 k/mm3 (150-375); Red Blood Count 5.69 M/mm3 (4.2-5.4); Red Cell Distribution Width 15.4 % (11.5-14.5); White Blood Count 12.8 K/mm3 (4.5-10.0)
[2024-07-18 16:58] LABS: Alanine Aminotransferase 14 U/L (6-35); Albumin Level 4.4 g/dL (3.5-5.1); Alkaline Phosphatase 131 U/L (38-126); Anion Gap 10 mmol/L (4-12); Aspartate Amino Transferase 19 U/L (14-36); Bilirubin,Total 0.3 mg/dL (0.2-1.3); Blood Urea Nitrogen 15 mg/dL (7-17); Calcium 9.9 mg/dL (8.4-10.2); Carbon Dioxide 26 mmol/L (22-30); Chloride 102 mmol/L (98-107); Estimated CRCL calculation 66 ml/min; Estimated Glomerular Filt Rate > 60; Glucose 245 mg/dL (65-110); Lipase 62 U/L (23-300); Potassium 3.8 mmol/L (3.4-5.0); Sodium 138 mmol/L (137-145)
[2024-07-18 17:07] LABS: Add Urine Microscopic? YES; Appearance Urine Cloudy (Clear); Bacteria Urine 4+ /hpf; Bilirubin Urine Negative (Negative); Blood Urine Negative (Negative); Calcium Oxalate Crystals Urine Present /hpf; Color Urine Yellow (Yellow); Glucose Urine UA 2+ mg/dL (Negative); Ketones Urine Trace mg/dL (Negative); Leukocyte Esterase Ur Negative LEU/UL (Negative); Need Manual Microscopic Reviewed; Nitrate Urine Negative (Negative); Non Pathogenic Casts 0-2; Protein Urine 1+ mg/dL (Negative); Squamous Epithelial Cell Urine Few /hpf (Few); WBC Urine 21-50 /hpf (0-3); pH Urine 5.5 (5.0-9.0)
--- NOTE | 2024-07-18 17:33 | PC.NURSE ---
Pt declined to be seen due to wait times. This RN discussed results are back and to stay for imaging and lab results. Pt states No, I am leaving. I will check my patient portal or my doctor can call me. Pt ambulated out w/out distress.
== END 2024-07-18 18:37 | disposition left against medical advice (07) ==
PROVIDERS: Emergency Provider Physician Assistant; PCP Family Medicine
DX: M54.50 Low back pain, unspecified (principal); G89.4 Chronic pain syndrome; I10 Essential (primary) hypertension; E11.40 Type 2 diabetes mellitus with diabetic neuropathy, unspecified; E03.9 Hypothyroidism, unspecified; E78.5 Hyperlipidemia, unspecified; E66.01 Morbid (severe) obesity due to excess calories; Z68.38 Body mass index [BMI] 38.0-38.9, adult; G47.33 Obstructive sleep apnea (adult) (pediatric); G25.81 Restless legs syndrome; K21.9 Gastro-esophageal reflux disease without esophagitis; M79.7 Fibromyalgia; M51.369 Other intervertebral disc degeneration, lumbar region without mention of lumbar back pain or lower extremity pain; M50.30 Other cervical disc degeneration, unspecified cervical region; K58.0 Irritable bowel syndrome with diarrhea; Z85.828 Personal history of other malignant neoplasm of skin; Z87.442 Personal history of urinary calculi; Z90.49 Acquired absence of other specified parts of digestive tract; Z90.710 Acquired absence of both cervix and uterus; Z90.79 Acquired absence of other genital organ(s); Z90.722 Acquired absence of ovaries, bilateral; Z79.899 Other long term (current) drug therapy; Z79.4 Long term (current) use of insulin; Z79.84 Long term (current) use of oral hypoglycemic drugs
CPT/HCPCS: 36415; 74176; 80053; 81001; 83690; 85025; 87086; 99284

== ENCOUNTER 2024-11-20 14:53 | Outpatient (CLI) | payer MEDICARE, SELFPAY ==
--- NOTE | ~2024-11-20 | CT_ITS ---
CLINICAL INDICATION: DVT COMPARISON: 07/18/2024. TECHNIQUE: Multiple contiguous axial images of the abdomen and pelvis were performed without the admi nistration of intravenous contrast The dose-length product (DLP) was 796.00 mGy-cm. Automated exposure control and iterative reconstruction technique were employed. FINDINGS/OBSERVATIONS: Visualized lower thorax: The bilateral lung bases are clear. The heart is of normal size, without pericardial effusion. Small hiatal hernia is present. Liver: The liver demonstrates homogeneous attenuation and is not enlarged measuring 18 cm in longitudinal di mension. Gallbladder and biliary system: The gallbladder is surgically absent. Pancreas: Limited evaluation of the pancreas secondary to the lack of intravenous contrast. Spleen: The spleen demonstrates homogeneous attenuation and is not enlarged measuring 6 cm in longitudinal di mension. Kidneys: Scattered 2 and 3 mm nonobstructing calculi within the right kidney. No stones detected within the left kidney. The remainder of the bilateral kidneys are otherwise unremarkable, without hydronephrosis or addition al renal calculi. Adrenal glands: Unremarkable. Gastrointestinal tract: Colonic diverticulosis without surrounding inflammatory change. Fecal stasis within the colon. Appendix: The appendix is not definitively visualized. However, no pericecal inflammatory change is identified suggest the presence of acute appendicitis. Vasculature: Unremarkable. Lymph nodes: No pathologically enlarged or morphologically suspicious lymph nodes within the retroperitoneum or at the root of the mesentery. Pelvic structures: The bladder is only minimally distended, and otherwise unremarkable. The uterus is either atrophic or surgically absent. Body wall and musculoskeletal: Small fat-containing umbilical hernia. Trace degenerative disease within the lumbosacral spine with vacuum phenomena and disc space narrowin g at the level of L4/L5 and L1/L2. IMPRESSION: Scattered 2 and 3 mm nonobstructing stones within the right kidney. Remainder of the examination is otherwise unremarkable. Reviewed, dictated and finalized at location A.
--- OUTSIDE RECORDS SUMMARY | 2024-11-20 16:30 | XMS_ITS | Clinical Summary ---
Author Organization [facility] Address [address] [place] [address] Phone Care Team Providers Care Tiler'S Assistant Name Role Phone Unavailable Primary Care Provider Unavailabl e Allergies Active Allergy Reactions Criticality Noted Date Comments Oseltamivir Nausea and Vomiting Low 12/06/2022 Penicillins Nausea and Vomiting Low 12/06/2022 Medications albuterol (PROVENTIL,VENTOL IN) 2.5 mg /3 mL (0.083 %) Solution for Nebulization INHALE 3ML (1 VIAL) VIA NEBULIZER EVERY 4 TO 6 HOURS NEEDED FOR SHORTNESS OF BREATH 3 Active ALPRAZolam (XANAX) 0.5 mg tablet Take 0.5 mg by mouth 2 times daily as needed. 3 Active atenoloL (TENORMIN) 50 mg tablet 50 mg. 3 Active benzonatate (TESSALON) 100 mg capsule TAKE 1 CAPSULE BY MOUTH THREE TIMES A DAY NEEDED FOR COUGH X10 DAYS 3 Active DULoxetine (CYMBALTA) 60 mg Capsule, Delayed Release(E.C.) Take 60 mg by mouth daily. 3 Active levothyroxine 75 mcg tablet Take 75 mcg by mouth daily. 3 Active pregabalin (LYRICA) 75 mg Capsule 3 Active rOPINIRole (REQUIP) 1 mg tablet TAKE 1 TABLET BY MOUTH 3 TIMES A DAY 3 Active nystatin (MYCOSTATIN) 100,000 unit/gram Ointment Apply to affected area 2 times daily. Active omeprazole (PriLOSEC) 20 mg Capsule, Delayed Release(E.C.) Take 20 mg by mouth daily. Active ondansetron (ZOFRAN) 4 mg Tablet Take 4 mg by mouth every 8 hours as needed for Nausea/Emesis. Active SITagliptin phosphate (JANUVIA) 25 mg Tablet Take 25 mg by mouth daily with breakfast. Active glimepiride (AMARYL) 4 mg tablet Take 4 mg by mouth daily with breakfast. 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 [employer] Gender Identity Not on file Sexual Orientation Not on file Last Filed Vital Signs Vital Sign Reading Time Taken Comments Blood Pressure 148/68 12/06/2022 2:02 PM CDT Pulse - - Temperature - - Respiratory Rate - - Oxygen Saturation - - Inhaled Oxygen Concentration - - Weight 101.2 kg (223 lb) 12/06/2022 2:02 PM CDT Height 152.4 cm (5') 12/06/2022 2:02 PM CDT Body Mass Index 43.55 12/06/2022 2:02 PM CDT Plan of Treatment Health Maintenance Due Date Last Done Comments DTAP/TDAP/TD VACCINES (1 - Tdap) 1974 BREAST CANCER SCREENING 1995 COLORECTAL SCREENING 2000 Colorectal Cancer Screening 2000 FIT-DNA Q 3 years 2000 FIT/FOBT Q 1 year 2000 Flex Sig/CT Colonography Q 5 years 2000 PNEUMOCOCCAL VACCINE 50+ YEARS (1 of 1 - PCV) 08/16/20 05 ZOSTER VACCINE (1 of 2) 2005 OSTEOPOROSIS SCREENING 2020 INFLUENZA VACCINE (#1) 2024 RSV VACCINE (60+ or ) (1 - 1-dose 75+ series) 2030 Insurance
--- OUTSIDE RECORDS SUMMARY | 2024-11-20 16:30 | XMS_ITS | Continuity of Care Document ---
Author Organization [facility] Address [address] [place] [address] Phone Care Team Providers Care Certified Home Health Aide Name Role Phone Franco OD, Roman Unavailable Unavailable Advance Directives Directive Yes / No Effective Date File Name No Information Encounters Encounter Description Practice Location Reason(s) For Visit Diagnoses Date Provider Providers Copied on Encounter [facility], [address], [place], [place], [id number], [place] tel:[phone] [address] [facility] [address] No Information 8-200 [address] Franco OD Roman. [address] , [address], [place], [address], [place]. tel:[phone] Family History Family Member Type Diagnosis Age At Onset No Information Payers Payer name Insurance type Covered green party ID Authoriza tion(s) No Information Social History Type Description Quantity Date Captured Comments Sex Female Smoking Status No Information Chief Complaint And Reason For Visit No Information Reason For Referral Reason For Referral No Information History Of Present Illness Encounter Date Complaint History Of Prese nt Illness No Information Functional Status Date Functional Assessmen t No Information Instructions Date Instruction Additional Infor mation No Information Assessments Type Assessment Date No Information Patient Care Teams Name Effective Dates (start - stop) Status Members No Information
--- OUTSIDE RECORDS SUMMARY | 2024-11-20 16:30 | XMS_ITS | Clinical Summary ---
Author Organization [facility] Address [address] [place] [address] Care Team Providers Care Manager Shift Name Role Phone Sam Delgado MD Primary Care Provider [phone] Source Comments [facility],non-[facility] Affiliates and Associated Physician Practices is amultiple site organization consisting of ambulatory clinics and hospital sitesin [place], [place], [place] and [place]. This disclosure is being madepursuant to the Care Everywhere program and may not contain all information available regarding this patient. Last updated 18.[facility] [employer] Social History Tobacco Use Types Packs/Day Years Used Date Smoking Tobacco: Never Assessed Sex and Gender Information Value Date Recorded Sex Assigned at Not on file Gender Identity Not on file Sexual Orientation Not on file Plan of Treatment Health Maintenance Due Date Last Done Comments BONE DENSITY TESTING 1955 COLOGUARD (AGES 45-75) - COL ON CA SCREENING 1955 COLON MONITORING 1955 COLONOSCOPY - COLON CA SCREENING 1955 CT COLONOGRAPHY - COLON CA SCREENING 1955 Colorectal Cancer Screening 1955 FIT - COLON CA SCREENING 1955 FLEX SIG - COLON CA SCREENING 1955 LIPID TESTING 1955 MAMMOGRAM 1955 HEPATITIS C SCREENING 08/11/1973 DTAP/TDAP/TD VACCINES (1 - Tdap) 1974 PNEUMOCOCCAL VACCINE 50+ (1 of 1 - PCV) 2005 ZOSTER VACCINE (1 of 2) 2005 COVID-19 VACCINE (2023-2 5 season) 2024 INFLUENZA VACCINE (#1) 2024 DEPRESSION SCREENING 09/04/2024 MEDICARE AWV CALENDAR YEAR 2024 Respiratory Syncytial Virus (RSV) Vaccine Pt: or over 60 yrs (1 - 1-dose 75+ series) 2030 HEPATITIS B VACCINE Aged Out No longe r eligible based on patient's age to complete this topic HIB VACCINE Aged Out No longer eligi ble based on patient's age to complete this topic HPV VACCINE Aged Out No longer eligi ble based on patient's age to complete this topic MENINGOCOCCAL (Group B) VACC INE SHARED DECISION-MAKING Aged Out No longer eligibl e based on patient's age to complete this topic MENINGOCOCCAL GROUPS A/C/Y/W VACCINE Aged Out No longer eligible b ased on patient's age to complete this topic Care Teams Manager Shift Relationship Specialty Start Date End Date Sam Delgado MD [address] [place] [address] [facility] - General 07/04/22
--- OUTSIDE RECORDS SUMMARY | 2024-11-20 16:30 | XMS_ITS | CONTINUITY OF CARE DOCUMENT ---
Author Name hanna ferreira Address Unknown Organization [facility] Address [address] [place] [address] Phone [phone] Care Team Providers Care Provisioning Analyst Name Role Phone Zak Butt MD Unavailable [phone] Zak Butt MD Unavailable [phone] INSURANCE PROVIDERS Payer name Policy type / Coverage type [place] [employer] party ID AARP MEDICARE ADVANTAGE HMO-POS HMO [id number]
--- OUTSIDE RECORDS SUMMARY | 2024-11-20 16:30 | XMS_ITS | Referral Summary ---
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 Name Role Phone Sam Delgado MD Primary Care Provider Encounters Date Type Department Care Team Description 10/29/2024 1:00 PM DRUM SANDER SETTER - 10/29/2024 7:55 PM [facility] Emergency [facility] Emergency Department [address] [place] [address] Fran Swan MD Acute diverticulitis (Primary Dx); Hyperglycemia; Nausea and vomiting, unspecified vomiting type; Abdominal pain Discharge Disposition: Discharge to home or self care 08/28/2024 5:34 AM DRUM SANDER SETTER - 09/02/2024 2:00 PM DRUM SANDER SETTER Hospital Encounter [facility] 5 Med [address] [place] [address] Olivier Bhagat MD Telemaque, Juno Sequeira MD Sepsis due to anaerobic bacteria (HCC) (Primary Dx); Abdominal pain; Acute serous otitis media, recurrence not specified, unspecified laterality Discharge Disposition: Discharge to home or self care 08/27/2024 - 08/27/2024 11:59 PM DRUM SANDER SETTER Hospital Encounter [facility] Outside Images [address] [place], [place] [id number] Discharge Disposition: Discharge to home or self care 08/27/2024 - 08/27/2024 11:59 PM DRUM SANDER SETTER Hospital Encounter [facility] Outside Images [address] [place] [id number] Discharge Disposition: Discharge to home or self care from Last 3 Months Allergies Active Allergy Reactions Criticality Noted Date Comments Adhesive Tape-Silicones Rash Medium Penicillins Nausea & Vomiting Low Lmopqhg-Ths-Vhn Reductase Inhibitors Hives Medium Medications buPROPion XL (WELLBUTRIN XL) 300 mg 24 hr tablet Take 1 tablet (300 mg total) by mouth every morning 05/22/20 24 Active levothyroxine (SYNTHROID) 75 mcg tablet Take 1 tablet (75 mcg total) by mouth daily 09/27/19 23 Active atenoloL (TENORMIN) 50 mg tablet Take 1 tablet (50 mg total) by mouth daily Active clobetasoL (TEMOVATE) 0.05 % cream Apply 1 Application topically 2 (two) times a day as needed (skin irritation) Active ALPRAZolam (XANAX) 1 mg tablet Take 1 tablet (1 mg total) by mouth 2 (two) times a day Active Mounjaro 2.5 mg/0.5 mL pen injector 0.5 mL (2.5 mg total) by abdominal subcutaneous route once a week 05/12/20 24 Active SITagliptin phosphate (JANUVIA) 25 mg tablet Take 1 tablet (25 mg total) by mouth daily Active glimepiride (AMARYL) 4 mg tablet Take 1 tablet (4 mg total) by mouth daily Active Jardiance 25 mg tablet Take 1 tablet (25 mg total) by mouth daily 05/22/20 24 Active atorvastatin (LIPITOR) 20 mg tablet Take 1 tablet (20 mg total) by mouth daily 05/22/20 24 Active rOPINIRole (REQUIP) 1 mg tablet Take 1 tablet (1 mg total) by mouth 2 (two) times a day Active LANTUS 100 unit/mL vial for injection Inject 15 Units under the skin nightly 07/15/20 24 Active albuterol 2.5 mg /3 mL (0.083 %) nebulizer solution Take 3 mL (2.5 mg total) by nebulization every 6 (six) hours as needed for wheezing or shortness of breath 11/05/19 23 Active HYDROcodone-aceta minophen (NORCO) 5-325 mg per tablet Take 1 tablet by mouth every 12 (twelve) hours as needed for pain 07/16/20 24 Active omeprazole (PriLOSEC) 40 mg capsule Take 1 capsule (40 mg total) by mouth daily Active DULoxetine DR (CYMBALTA) 60 mg capsule Take 1 capsule (60 mg total) by mouth daily 11/06/19 23 Active cyclobenzaprine (FLEXERIL) 5 mg tablet Take 1 tablet (5 mg total) by mouth daily as needed for muscle spasms 07/15/20 24 Active amLODIPine (NORVASC) 5 mg tablet Take 1 tablet (5 mg total) by mouth daily 30 tablet 1 07/26/20 24 025 Active meclizine (ANTIVERT) 25 mg tabletIndications :Vertigo Take 1 tablet (25 mg total) by mouth 3 (three) times a day as needed for dizziness 30 tablet 09/02/20 24 Active ondansetron ODT (ZOFRAN-ODT) 4 mg disintegrating tablet Take 1 tablet (4 mg total) by mouth every 8 (eight) hours as needed for nausea or vomiting 20 tablet 10/29/19 25 Active ondansetron (ZOFRAN) 4 mg tablet Take 1 tablet (4 mg total) by mouth every 8 (eight) hours as needed for nausea or vomiting 025 Discontinu ed(Therapy completed) ciprofloxacin (CIPRO) 750 mg tablet Take 1 tablet (750 mg total) by mouth 2 (two) times a day for 10 days 20 tablet 10/29/19 25 025 metroNIDAZOLE (FLAGYL) 500 mg tablet Take 1 tablet (500 mg total) by mouth 4 (four) times a day for 10 days 40 tablet 10/29/19 25 025 Active Problems Problem Noted Date Diagnosed Date Sepsis due to anaerobic bacteria 08/28/2024 Abdominal pain 07/22/2024 Hypothyroidism 01/18/2014 Overview (12/09/2016): HYPOTHYROIDISM NOS Social History Tobacco Use Types Packs/Day Years Used Date Smoking Tobacco: Never Tobacco Cessation:Counseling Given: Not Answered Alcohol Use Standard Drinks/Week Comments No 0 (1 standard drink = 0.6 oz pur e alcohol) [facility] Utilities Answer Date Recorded In the past 12 months has e [employer], gas, oil, or water [facility] threatened to shut off services in your home? No 08/29/2024 Social Connection and Isolat ion Panel [NHANES] Answer Date Recorded In a typical week, how many times do you talk on the phone with family, friends, or neighbors? More than three times a week 08/29/2024 How often do you get togethe r with friends or relatives? More than three times a week 08/29/2024 How often do you attend chur ch or rastafari services? Never 08/29/2024 Do you belong to any clubs o r organizations such as pentecostal groups, unions, fraternal or athletic groups, or school groups? No 08/29/2024 How often do you attend meet ings of the clubs or organizations you belong to? Never 08/29/2024 Are you , , di vorced, , never , or living with a partner? 08/29/2024 AUDIT-C Answer Date Recorded Q1: How often do you have a drink containing alcohol? Never 07/22/2024 Q2: How many drinks containi ng alcohol do you have on a typical day when you are drinking? Patient does not drink Q3: How often do you have si x or more drinks on one occasion? Never 07/22/2024 Overall Financial Resource Strain (CARDIA) Answe r Date Recorded How hard is it for you to pa y for the very basics like food, housing, medical care, and heating? Not hard at all 08/29/2024 Hunger Vital Sign Answer Date Recorded Within the past 12 months, y ou worried that your food would run out before you got the money to buy more. Never true 08/29/20 24 Within the past 12 months, t he food you bought just didn't last and you didn't have money to get more. Never true 08/29/2024 PRAPARE - Transportation Answer Date Re corded In the past 12 months, has l ack of transportation kept you from medical appointments or from getting medications? No 08/05 In the past 12 months, has l ack of transportation kept you from meetings, work, or from getting things needed for daily living? No 08/29/2024 Housing Stability Vital Sign Answer Gus e Recorded In the last 12 months, was t here a time when you were not able to pay the mortgage or rent on time? No 08/29/2024 In the past 12 months, how m any times have you moved where you were living? 0 08/29/2024 At any time in the past 12 m [facility], were you homeless or living in a alf (including now)? No 08/29/2024 Personal Safety Answer Date Recorded Have you ever been in or are you currently in a harmful physical or emotional relationship or is someone making you feel afraid or unsafe? Denies 10/29/2024 Comments No Sex and Gender Information Value Date Recorded Sex Assigned at Not on file Legal Sex Female 12:42 AM DRUM SANDER SETTER Gender Identity Not on file Sexual Orientation Not on file Last Filed Vital Signs Vital Sign Reading Time Taken Comments Blood Pressure 141/83 10/29/2024 6:15 PM DRUM SANDER SETTER Pulse 98 10/29/2024 6:15 PM DRUM SANDER SETTER Temperature 36.4 C (97.6 F) 10/29/2024 12:12 PM DRUM SANDER SETTER Respiratory Rate 17 10/29/2024 6:15 PM DRUM SANDER SETTER Oxygen Saturation 99% 10/29/2024 6:15 PM DRUM SANDER SETTER Inhaled Oxygen Concentration - - Weight 90.6 kg (199 lb 11.2 oz) 08/28/2024 6:04 AM DRUM SANDER SETTER Height 152.4 cm (5') 08/28/2024 6:04 AM DRUM SANDER SETTER Body Mass Index 39 08/28/2024 6:04 AM DRUM SANDER SETTER Plan of Treatment Not on file Procedures Procedure Name Priority Date/Time Associated Diagnosis Comments POCT GLUCOSE DEVICE Routine 10/29/2024 7 :07 PM DRUM SANDER SETTER POCT GLUCOSE DEVICE Routine 10/29/2024 5 :[address] ABDOMEN PELVIS W CONTRAST ED 10/29/2024 4:42 PM DRUM SANDER SETTER EGFR STAT 10/29/2024 4:31 PM DRUM SANDER SETTER BETA-HYDROXYBUTYRATE Routine 10/29/2024 4:31 PM DRUM SANDER SETTER BLOOD GAS, VENOUS Routine 10/29/2024 4:3 1 PM DRUM SANDER SETTER COMPREHENSIVE METABOLIC PANEL STAT 10/29/2024 4:31 PM DRUM SANDER SETTER SEPSIS LACTATE WITH REFLEX Timed 10/29/2024 4:31 PM DRUM SANDER SETTER POCT GLUCOSE DEVICE Routine 10/29/2024 4 :27 PM DRUM SANDER SETTER AL CRITICAL CARE ILL/INJURED PATIENT INIT 30-74 MIN Routine 10/29/2024 3:59 PM DRUM SANDER SETTER TROPONIN T HIGH-SENSITIVITY STAT 10/29/2024 3:29 PM DRUM SANDER SETTER TROPONIN T HIGH-SENSITIVITY 2-HOUR Timed 10/29/2024 3:29 PM DRUM SANDER SETTER LIPASE STAT 10/29/2024 3:29 PM DRUM SANDER SETTER POCT GLUCOSE DEVICE Routine 10/29/2024 3 :28 PM DRUM SANDER SETTER EGFR STAT 10/29/2024 1:31 PM DRUM SANDER SETTER DIFFERENTIAL AUTO STAT 10/29/2024 1:3 1 PM DRUM SANDER SETTER SEPSIS LACTATE WITH REFLEX STAT 10/29/2024 1:31 PM DRUM SANDER SETTER COMPREHENSIVE METABOLIC PANEL STAT 10/29/2024 1:31 PM DRUM SANDER SETTER CBC WITH AUTO DIFFERENTIAL STAT 10/29/2024 1:31 PM DRUM SANDER SETTER RESPIRATORY PATHOGEN PANEL STAT 10/29/2024 1:31 PM DRUM SANDER SETTER XR CHEST 1 VIEW ED 10/29/2024 1:29 PM DRUM SANDER SETTER ECG 12-LEAD Routine 10/29/2024 12:18 PM DRUM SANDER SETTER POCT GLUCOSE DEVICE Routine 10/29/2024 1 2:13 PM DRUM SANDER SETTER POCT GLUCOSE DEVICE Routine 09/02/2024 1 1:26 AM DRUM SANDER SETTER POCT GLUCOSE DEVICE Routine 09/02/2024 7 :49 AM DRUM SANDER SETTER EGFR Routine 09/02/2024 5:08 AM DRUM SANDER SETTER BASIC METABOLIC PANEL Routine 09/02/2024 5:08 AM DRUM SANDER SETTER POCT GLUCOSE DEVICE Routine 09/01/2024 8 :17 PM DRUM SANDER SETTER POCT GLUCOSE DEVICE Routine 09/01/2024 4 :28 PM DRUM SANDER SETTER POCT GLUCOSE DEVICE Routine 09/01/2024 1 2:25 PM DRUM SANDER SETTER POCT GLUCOSE DEVICE Routine 09/01/2024 7 :37 AM DRUM SANDER SETTER EGFR Routine 09/01/2024 4:44 AM DRUM SANDER SETTER BASIC METABOLIC PANEL Routine 09/01/2024 4:44 AM DRUM SANDER SETTER POCT GLUCOSE DEVICE Routine 08/31/2024 9 :55 PM DRUM SANDER SETTER POCT GLUCOSE DEVICE Routine 08/31/2024 5 :24 PM DRUM SANDER SETTER VANCOMYCIN LEVEL TROUGH Timed 08/31/2024 5:18 PM DRUM SANDER SETTER POCT GLUCOSE DEVICE Routine 08/31/2024 1 2:41 PM DRUM SANDER SETTER XR CHEST 1 VIEW IP Routine 08/31/2024 11:01 AM DRUM SANDER SETTER POCT GLUCOSE DEVICE Routine 08/31/2024 7 :46 AM DRUM SANDER SETTER EGFR Routine 08/31/2024 4:09 AM DRUM SANDER SETTER BASIC METABOLIC PANEL Routine 08/31/2024 4:09 AM DRUM SANDER SETTER POCT GLUCOSE DEVICE Routine 08/30/2024 8 :28 PM DRUM SANDER SETTER POCT GLUCOSE DEVICE Routine 08/30/2024 3 :58 PM DRUM SANDER SETTER POCT GLUCOSE DEVICE Routine 08/30/2024 1 1:51 AM DRUM SANDER SETTER POCT GLUCOSE DEVICE Routine 08/30/2024 7 :34 AM DRUM SANDER SETTER EGFR Routine 08/30/2024 4:19 AM DRUM SANDER SETTER BASIC METABOLIC PANEL Routine 08/30/2024 4:19 AM DRUM SANDER SETTER THYROID FUNCTION CASCADE Routine 08/29/2024 11:30 PM DRUM SANDER SETTER TRICHOMONAS VAGINALIS PCR Routine 08/29/2024 10:09 PM DRUM SANDER SETTER N. GONORRHOEAE/C. TRACHOMATIS AMPLIFICATION Routine 08/29/2024 10:09 PM DRUM SANDER SETTER POCT GLUCOSE DEVICE Routine 08/29/2024 8 :50 PM DRUM SANDER SETTER POCT GLUCOSE DEVICE Routine 08/29/2024 6 :15 PM DRUM SANDER SETTER VAGINITIS PANEL Routine 08/29/2024 5:16 PM DRUM SANDER SETTER POCT GLUCOSE DEVICE Routine 08/29/2024 1 2:47 PM DRUM SANDER SETTER POCT GLUCOSE DEVICE Routine 08/29/2024 8 :29 AM DRUM SANDER SETTER ECG 12-LEAD Routine 08/29/2024 8:13 AM DRUM SANDER SETTER EGFR Routine 08/29/2024 1:21 AM DRUM SANDER SETTER COMPREHENSIVE METABOLIC PANEL Routine 08/29/2024 1:21 AM DRUM SANDER SETTER POCT GLUCOSE DEVICE Routine 08/28/2024 8 :30 PM DRUM SANDER SETTER POCT GLUCOSE DEVICE Routine 08/28/2024 5 :12 PM DRUM SANDER SETTER POCT GLUCOSE DEVICE Routine 08/28/2024 1 1:[address] ABDOMEN PELVIS W CONTRAST IP Routine 08/28/2024 11:27 AM DRUM SANDER SETTER POCT GLUCOSE DEVICE Routine 08/28/2024 8 :17 AM DRUM SANDER SETTER EGFR Routine 08/28/2024 7:12 AM DRUM SANDER SETTER BASIC METABOLIC PANEL Routine 08/28/2024 7:12 AM DRUM SANDER SETTER DIFFERENTIAL AUTO Routine 08/28/2024 7:1 2 AM DRUM SANDER SETTER LACTATE STAT 08/28/2024 7:12 AM DRUM SANDER SETTER CBC WITH AUTO DIFFERENTIAL Routine 08/28/2024 7:12 AM DRUM SANDER SETTER CREATINE KINASE (CK), TOTAL Routine 08/28/2024 7:12 AM DRUM SANDER SETTER POCT GLUCOSE DEVICE Routine 08/28/2024 6 :[address] BODY OUTSIDE REFERENCE Routine 08/27/2024 12:00 AM DRUM SANDER SETTER XR TRANSFER OF OUTSIDE FILMS Routine 08/27/2024 12:00 AM DRUM SANDER SETTER HEMOGLOBIN A1C Routine 07/23/2024 9:07 AM DRUM SANDER SETTER from Last 3 Months or Most Recently Relevant to Health Maintenance Results * POCT glucose (10/29/2024 7:07 PM DRUM SANDER SETTER) Glucose, POC 168 70 - 199 mg/dL Blood 10/29/2024 7:07 PM DRUM SANDER SETTER 10/29/2024 7:07 PM DRUM SANDER SETTER us Fran Swan MD LAB POCT ORDERABLES - DEANDRE CE Final Result [facility] JOIN[facility] [id number] Department [place] [address] * (ABNORMAL) POCT glucose (10/29/2024 5:53 PM DRUM SANDER SETTER) Glucose, POC 257(H) 70 - 199 mg/dL Blood 10/29/2024 5:53 PM DRUM SANDER SETTER 10/29/2024 5:53 PM DRUM SANDER SETTER us Fran Swan MD LAB POCT ORDERABLES - DEANDRE CE Final Result [facility] [id number] Department [place] [address] * CT Abdomen Pelvis W Contrast (10/29/2024 4:42 PM DRUM SANDER SETTER) Anatomical Region Laterality Modality Body N/A Computed Tomogra phy 10/29/2024 5:25 PM DRUM SANDER SETTER Impressions 10/29/2024 5:25 PM DRUM SANDER SETTER MILD ACUTE SIGMOID DIVERTICULITIS Electronically signed by: Richard Alexis M.D. Narrative 10/29/2024 5:25 PM DRUM SANDER SETTER EXAMINATION: CT ABDOMEN PELVIS W CONTRAST DATE: 10/29/2024 4:40 PM CLINICAL HISTORY: Abdominal pain, acute, nonlocalized TECHNIQUE: Axial CT imaging of the abdomen and pelvis performed with 91mL of Optiray 350 intravenous contrast. 2-D Reformatted images are obtained. COMPARISON: None FINDINGS: LOWER THORAX: The lung bases are clear. LIVER: Normal in appearance as visualized. BILIARY: Previous cholecystectomy with no biliary ductal dilatation. as visualized. SPLEEN: Normal in appearance as visualized. PANCREAS: Normal in appearance ADRENALS: Normal in appearance KIDNEYS: Normal renal outlines. No sign of hydronephrosis. There are several small nonobstructing intrarenal calculi in the mid right kidney. GI TRACT: There is nonspecific gastric antral mucosal and/or wall thickening. The small bowel is normal in caliber with minimal fluid retention. The colon demonstrates scattered diverticulosis. Moderate bowel wall thickening in the sigmoid region is associated with very early adjacent mesenteric edema suggesting mild acute diverticulitis... No free intraperitoneal air is present. APPENDIX: Normal in appearance ABDOMINAL WALL: Unremarkable RETROPERITONEUM/LYMPH/MESENTERIC NODES: No retroperitoneal or mesenteric lymphadenopathy identified. VESSELS: The great vessels of the abdomen are unremarkable. PELVIC ORGANS: There is a decompressed under distended urinary bladder, unable to evaluate the significance of the wall thickening. BONES: Disc degenerative change and narrowing at L1-L2 and L4-L5.. No suspicious osteolytic or osteoblastic lesions. . Procedure Note Richard Alexis MD - 10/29/2024 EXAMINATION: CT ABDOMEN PELVIS W CONTRAST DATE: 10/29/2024 4:40 PM CLINICAL HISTORY: Abdominal pain, acute, nonlocalized TECHNIQUE: Axial CT imaging of the abdomen and pelvis performed with 91mL of Optiray 350 intravenous contrast. 2-D Reformatted images are obtained. COMPARISON: None FINDINGS: LOWER THORAX: The lung bases are clear. LIVER: Normal in appearance as visualized. BILIARY: Previous cholecystectomy with no biliary ductal dilatation. as visualized. SPLEEN: Normal in appearance as visualized. PANCREAS: Normal in appearance ADRENALS: Normal in appearance KIDNEYS: Normal renal outlines. No sign of hydronephrosis. There are several small nonobstructing intrarenal calculi in the mid right kidney. GI TRACT: There is nonspecific gastric antral mucosal and/or wall thickening. The small bowel is normal in caliber with minimal fluid retention. The colon demonstrates scattered diverticulosis. Moderate bowel wall thickening in the sigmoid region is associated with very early adjacent mesenteric edema suggesting mild acute diverticulitis... No free intraperitoneal air is present. APPENDIX: Normal in appearance ABDOMINAL WALL: Unremarkable RETROPERITONEUM/LYMPH/MESENTERIC NODES: No retroperitoneal or mesenteric lymphadenopathy identified. VESSELS: The great vessels of the abdomen are unremarkable. PELVIC ORGANS: There is a decompressed under distended urinary bladder, unable to evaluate the significance of the wall thickening. BONES: Disc degenerative change and narrowing at L1-L2 and L4-L5.. No suspicious osteolytic or osteoblastic lesions. . IMPRESSION: MILD ACUTE SIGMOID DIVERTICULITIS Electronically signed by: Richard Alexis M.D. Fran Swan MD IMG CT PROCEDURES Final Re sult * Sepsis Lactate w/ Reflex (10/29/2024 4:31 PM DRUM SANDER SETTER) Sepsis Lactate 1.7 0.7 - 2.0 mmol/L Blood 10/29/2024 4:31 PM DRUM SANDER SETTER 10/29/2024 4:35 PM DRUM SANDER SETTER Fran Swan MD LAB BLOOD ORDERABLES Final Result [facility] [id number] [facility] [place] [address] * eGFR (10/29/2024 4:31 PM DRUM SANDER SETTER) eGFR 74 >=60 mL/min/1. 73 m2 Comment: Interpretive Data Reference Interval Normal >/= 90 mL/min/1.73m2 Mildly decreased* 60 - 89 mL/min/1.73m2 Mildly to moderately decreased 45 - 59 mL/min/1.73m2 Moderately to severely decreased 30 - 44 mL/min/1.73m2 Severely decreased 15 - 29 mL/min/1.73m2 Kidney Failure < 15 mL/min/1.73m2 *Relative to young adult level Estimated glomerular filtration rate is determined by the 2020 CKD-EPI equation recommended by the National Kidney Foundation (A Unifying Approach to GFR Estimation: Recommendations of the NKF-ASK Task Force on Reassessing the Inclusion of Race in Diagnosing Kidney Disease, JASN 2020). The CKD-EPI equation should not be used for patients with unstable renal function and has not been validated in children and those over 70. Current interpretive data was last reviewed 2021. Blood 10/29/2024 4:31 PM DRUM SANDER SETTER 10/29/2024 4:35 PM DRUM SANDER SETTER Fran Swan MD LAB BLOOD ORDERABLES Final Result [facility] [id number] [place] [address] * (ABNORMAL) Beta-hydroxybutyrate (10/29/2024 4:31 PM DRUM SANDER SETTER) Beta-Hydroxybut yrate 1.2(H) <=0.5 mmol/L Blood 10/29/2024 4:31 PM DRUM SANDER SETTER 10/29/2024 4:35 PM DRUM SANDER SETTER Fran Swan MD LAB BLOOD ORDERABLES Final Result Performing Organization Address [facility] Co de Phone Number FREDERICK JOINER [id number] Department [place] [address] * (ABNORMAL) Blood gas, venous (10/29/2024 4:31 PM DRUM SANDER SETTER) pH, Venous 7.42 7.32 - 7.43 PCO2, Venous 37(L) 40 - 50 mmHg C[facility]ER [facility] PO2, Venous 43 mmHg [facility] Comment: Interpretive Data No Reference Range Established Current Interpretive Data was last revised on 2017. HCO3 Venous, Calculated 24 20 - 30 mmol/L C[facility] CH BE, venous -1 mmol/L [facility] Comment: Interpretive Data No Reference Range Established Current Interpretive Data was last revised on 2017. Blood 10/29/2024 4:31 PM DRUM SANDER SETTER 10/29/2024 4:35 PM DRUM SANDER SETTER Fran Swan MD LAB BLOOD ORDERABLES Final Result Performing Organization Address [facility] de Phone Number FREDERICK JOINER [id number] Department [place] [address] * (ABNORMAL) Comprehensive metabolic panel (10/29/2024 4:31 PM DRUM SANDER SETTER) Pathologist [facility] Sodium 135 135 - 145 mmol/L Potassium, pl 4.0 3.3 - 4.9 mmol/L CERNER Chloride 100 97 - 110 mmol/L CERNER CO2 21(L) 22 - 32 mmol/L CERNER Anion gap 14 2 - 15 mmol/L [facility] BUN 19 6 - 25 mg/dL [facility] Creatinine 0.85 0.60 - 1.10 mg/dL [facility] Glucose 248(H) 70 - 199 mg/dL [facility] Comment: Interpretive Data Fasting glucose >/= 126 mg/dl is diagnostic for diabetes. Fasting is defined as no caloric intake for at least 8 hours. Fasting glucose between 100 mg/dl to 125 mg/dl is diagnostic of prediabetes. In a patient with classic symptoms of hyperglycemia or hyperglycemic crisis, a random glucose >/= 200 mg/dl is diagnostic for diabetes. In the absence of unequivocal hyperglycemia, results should be confirmed by repeat testing. The classification and Diagnosis of Diabetes Diabetes Care 2021; 46: S19-S40. Current interpretive data was last revised 2022. Calcium 8.0(L) 8.5 - 10.3 mg/dL [facility] Bilirubin, total 0.3 0.1 - 1.2 mg/dL [facility] Protein, pl 6.0(L) 6.5 - 8.5 g/dL [facility] Albumin 3.4(L) 3.5 - 5.0 g/dL [facility] Alk phos 106 40 - 130 Units/L [facility] ALT 9 7 - 45 Units/L [facility] AST 11 10 - 45 Units/L [facility] Blood 10/29/2024 4:31 PM DRUM SANDER SETTER 10/29/2024 4:35 PM DRUM SANDER SETTER us Fran Swan MD LAB BLOOD ORDERABLES Final Result Performing Organization Address City/[facility]/ZIP Co de Phone Number JULIANJENIFER [id number] Department [place] [address] * (ABNORMAL) POCT glucose (10/29/2024 4:27 PM DRUM SANDER SETTER) Glucose, POC 227(H) 70 - 199 mg/dL Blood 10/29/2024 4:27 PM DRUM SANDER SETTER 10/29/2024 4:27 PM DRUM SANDER SETTER Fran Swan MD LAB POCT ORDERABLES - DEANDRE CE Final Result JULIANJENIFER [id number] Department [place] [address] * AL CRITICAL CARE ILL/INJURED PATIENT INIT 30-74 MIN (10/29/2024 3:59 PM DRUM SANDER SETTER) Narrative Fran Swan MD - 10/29/2024 3:59 PM DRUM SANDER SETTER Fran Swan MD 11/04/2024 4:49 AM Critical Care Performed by: Fran Swan MD Authorized by: Fran Swan MD Critical care provider statement: As reflected in the history, physical exam, orders, notes, and/or MDM, I was personally present while the patient was critically ill and provided critical care services for 35 minutes, excluding time involved in separately billable procedures. Critical care was necessary to treat or prevent imminent or life-threatening deterioration of the following condition(s): hypo/hyper glycemic control intra-abdominal infection Critical care was time spent by me providing the following: continuous telemetry, continuous pulse oximetry, interpretation of bedside monitors, imaging, and arterial/venous lab draws, serial bedside patient exams, serial laboratory checks and resuscitation with fluids glycemic control empiric broad coverage antibiotics I provided emergent necessary critical care medicine services to this patient. I ordered and reviewed test results and/or imaging studies. I spent time discussing the management of this critically ill patient with consultants and the medical staff. I spent time discussing the management and therapeutic options for this critically ill patient with the patient themselves or with the appropriate designated surrogate decision-maker. I spent time documenting in the medical record. us Fran Swan MD IN CLINIC/BEDSIDE ORDERABL ES Final Result * Troponin T high-sensitivity 2-hour (10/29/2024 3:29 PM DRUM SANDER SETTER) Trop T hs See Comment <=14 Comment: Interpretive Data For further hscTnT resources including the diagnostic algorithm and an aid in interpretation, copy and paste this link: [email or web address]://nrl.testcatalog.org/show/[email or web address] Current Interpretive Data last revised 2020. Trop T hs interp See Comment FREDERICK JOINER Blood 10/29/2024 3:29 PM DRUM SANDER SETTER 10/29/2024 3:31 PM DRUM SANDER SETTER us Fran Swan MD LAB BLOOD ORDERABLES Final Result FREDERICK JOINER [address] Department [place] [address] * Troponin T high-sensitivity (10/29/2024 3:29 PM DRUM SANDER SETTER) Trop T hs 13 <=14 ng/L Comment: Interpretive Data For further hscTnT resources including the diagnostic algorithm and an aid in interpretation, copy and paste this link: [email or web address].testcatalog.org/[email or web address] Current Interpretive Data last revised 2020. Blood 10/29/2024 3:29 PM DRUM SANDER SETTER 10/29/2024 4:56 PM DRUM SANDER SETTER Fran Swan MD LAB BLOOD ORDERABLES Final Result FREDERICK JOINER [address] [place] [address] * Lipase (10/29/2024 3:29 PM DRUM SANDER SETTER) Lipase 20 10 - 99 Units/L Blood Venous blood specimen / Unknown 10/29/2024 3:29 PM DRUM SANDER SETTER 10/29/2024 4:55 PM DRUM SANDER SETTER Fran Swan MD LAB BLOOD ORDERABLES Final Result Performing Organization Address [facility] de Phone Number JULIANJENIFER JOINER [address] [place] [address] * (ABNORMAL) POCT glucose (10/29/2024 3:28 PM DRUM SANDER SETTER) Glucose, POC 288(H) 70 - 199 mg/dL Blood 10/29/2024 3:28 PM DRUM SANDER SETTER 10/29/2024 3:28 PM DRUM SANDER SETTER Fran Swan MD LAB POCT ORDERABLES - DEANDRE CE Final Result Performing Organization Address [facility] Co de Phone Number FREDERICK JOINER [address] [facility] [employer] [place], [place] [id number] * (ABNORMAL) Sepsis Lactate w/ Reflex (10/29/2024 1:31 PM DRUM SANDER SETTER) Sepsis Lactate 2.9(H) 0.7 - 2.0 mmol/L Blood 10/29/2024 1:31 PM DRUM SANDER SETTER 10/29/2024 1:41 PM DRUM SANDER SETTER Fran Swan MD LAB BLOOD ORDERABLES Final Result Performing Organization Address [facility]/ZIP Co de Phone Number FREDERICK JOINER [address] Department [place] [address] * eGFR (10/29/2024 1:31 PM DRUM SANDER SETTER) eGFR 67 >=60 mL/min/1. 73 m2 Comment: Interpretive Data Reference Interval Normal >/= 90 mL/min/1.73m2 Mildly decreased* 60 - 89 mL/min/1.73m2 Mildly to moderately decreased 45 - 59 mL/min/1.73m2 Moderately to severely decreased 30 - 44 mL/min/1.73m2 Severely decreased 15 - 29 mL/min/1.73m2 Kidney Failure < 15 mL/min/1.73m2 *Relative to young adult level Estimated glomerular filtration rate is determined by the 2020 CKD-EPI equation recommended by the National Kidney Foundation (A Unifying Approach to GFR Estimation: Recommendations of the NKF-ASK Task Force on Reassessing the Inclusion of Race in Diagnosing Kidney Disease, JASN 2020). The CKD-EPI equation should not be used for patients with unstable renal function and has not been validated in children and those over 70. Current interpretive data was last reviewed 2021. Blood 10/29/2024 1:31 PM DRUM SANDER SETTER 10/29/2024 1:43 PM DRUM SANDER SETTER Fran Swan MD LAB BLOOD ORDERABLES Final Result JULIANJENIFER JOINER [address] Department [place] [address] * (ABNORMAL) Differential, auto (10/29/2024 1:31 PM DRUM SANDER SETTER) Neutrophil abs 5.7 1.5 - 6.5 K/cumm Imm gran abs 0.2(H) 0.0 - 0.1 K/cumm [facility] Lymphocyte abs 3.4(H) 0.8 - 3.3 K/cumm [facility] Monocyte abs 1.0(H) 0.2 - 0.8 K/cumm [facility] Eosinophil abs 0.1 0.0 - 0.5 K/cumm [facility] Basophil abs 0.1 0.0 - 0.1 K/cumm [facility] Neutrophil pct 54.8 % [facility] Comment: Interpretive Data Percent cell count reference ranges are not reported, since discordance with absolute values may lead to misinterpretation of CBC data. Current Interpretive Data was last revised on 2017. Imm gran pct 1.5 % [facility] Comment: Interpretive Data Percent cell count reference ranges are not reported, since discordance with absolute values may lead to misinterpretation of CBC data. Current Interpretive Data was last revised on 2017. Lymphocyte pct 32.5 % [facility] Comment: Interpretive Data Percent cell count reference ranges are not reported, since discordance with absolute values may lead to misinterpretation of CBC data. Current Interpretive Data was last revised on 2017. Monocyte pct 9.8 % [facility] Comment: Interpretive Data Percent cell count reference ranges are not reported, since discordance with absolute values may lead to misinterpretation of CBC data. Current Interpretive Data was last revised on 2017. Eosinophil pct 0.7 % [facility] Comment: Interpretive Data Percent cell count reference ranges are not reported, since discordance with absolute values may lead to misinterpretation of CBC data. Current Interpretive Data was last revised on 2017. Basophil pct 0.7 % [facility] Comment: Interpretive Data Percent cell count reference ranges are not reported, since discordance with absolute values may lead to misinterpretation of CBC data. Current Interpretive Data was last revised on 2017. Blood 10/29/2024 1:31 PM DRUM SANDER SETTER 10/29/2024 1:42 PM DRUM SANDER SETTER us Fran Swan MD LAB BLOOD ORDERABLES Final Result FREDERICK [address] Department [place] [address] * Respiratory pathogen panel Nasopharyngeal (10/29/2024 1:31 PM DRUM SANDER SETTER) Pathologist [facility] Influenza A RNA Not Detected Not Detected Influenza B RNA Not Detected Not Detected [facility] RSV RNA Not Detected Not Detected [facility] COVID-19 RNA Not Detected Not Detected [facility] Coronavirus 229E RNA Not Detected Not Detected [facility] Coronavirus HKU1 RNA Not Detected Not Detected [facility] Coronavirus NL63 RNA Not Detected Not Detected [facility] Coronavirus OC43 RNA Not Detected Not Detected [facility] Adenovirus DNA Not Detected Not Detected [facility] Metapneumovirus RNA Not Detected Not Detected [facility] Rhinovirus/Enterov irus RNA Not Detected Not Detected [facility] Parainfluenza 1 RNA Not Detected Not Detected [facility] Parainfluenza 2 RNA Not Detected Not Detected [facility] Parainfluenza 3 RNA Not Detected Not Detected [facility] Parainfluenza 4 RNA Not Detected Not Detected [facility] B. pertussis DNA Not Detected Not Detected [facility] B. parapertussis DNA Not Detected Not Detected [facility] C. pneumoniae DNA Not Detected Not Detected [facility] M. pneumoniae DNA Not Detected Not Detected [facility] Comment: Interpretive Data The [employer] FilmArray Respiratory Panel (RP2.1) assay is a multiplexed real-time PCR based nucleic acid test capable of simultaneous qualitative detection and identification of multiple respiratory viral and bacterial nucleic acids, including SARS Coronavirus 2 (the causative agent of COVID-19). The following bacteria, viruses and virus subtypes can be identified using the FilmArray RP2.1 assay: Bordetella pertussis, Bordetella parapertussis, Chlamydia pneumoniae, Mycoplasma pneumoniae, Adenovirus, SARS Coronavirus 2, seasonal coronaviruses (Coronavirus HKU1, Coronavirus NL63, Coronavirus 229E, and Coronavirus OC43), Influenza A, Influenza A subtype H1, Influenza A subtype H3, Influenza A subtype 2009 H1, Influenza B, Metapneumovirus, Parainfluenza 1, Parainfluenza 2, Parainfluenza 3, Parainfluenza 4, RSV, Rhinovirus/Enterovirus. Due to the genetic similarity between human Rhinovirus and Enterovirus, the FilmArray RP2.1 assay cannot reliably differentiate them. Coronavirus OC43 may cross-react with some isolates of Coronavirus HKU1. A dual positive result may be due to cross-reactivity or may indicate a co- infection. The detection and identification of specific viral and bacterial nucleic acids from individuals exhibiting signs and symptoms of a respiratory infection aids in the diagnosis of respiratory infection if used in conjunction with other clinical and epidemiological information. The results of this test should not be used as the sole basis for diagnosis, treatment, or other management decisions. Negative results in the setting of a respiratory illness may be due to infection with pathogens that are not detected by this test. Positive results do not rule out infection/co-infection with other organisms. The agent(s) detected by the FilmArray RP2.1 may not be the definite cause of disease. Additional testing (lab, imaging, etc.) may be necessary when evaluating a patient with possible respiratory tract infection. The FilmArray RP2.1 assay has FDA clearance for testing of WHITESMITH swabs. The performance characteristics of this assay have been determined by [facility]. Current interpretive data was last revised on 2021. Nasopharyngeal 10/29/2024 1: 31 PM DRUM SANDER SETTER 10/29/2024 1:42 PM DRUM SANDER SETTER Narrative [facility] - 10/29/2024 2:37 PM DRUM SANDER SETTER Is the Patient experiencing symptoms consistent with COVID?->Yes Surveillance testing for transplant patient?->No Fran Swan MD LAB MICROBIOLOGY - GENERAL ORDERABLES Final Result [facility] [address] Department [place] [address] CH * (ABNORMAL) CBC with auto differential (10/29/2024 1:31 PM DRUM SANDER SETTER) [facility] WBC 10.5(H) 3.8 - 9.9 K/cumm Hgb 16.0(H) 11.9 - 15.5 g/dL [facility] Hct 50.4(H) 35.6 - 45.5 % [facility] Plt 305 150 - 400 K/cumm [facility] MPV 12.0 9.1 - 12.3 fL [facility] RBC 5.99(H) 3.90 - 5.20 M/cumm [facility] MCV 84.1 81.3 - 96.4 fL [facility] MCH 26.7(L) 27.1 - 33.3 pg [facility] MCHC 31.7(L) 32.3 - 35.7 g/dL [facility] RDW CV 14.5 11.1 - 14.9 % [facility] RDW SD 44.1 35.7 - 48.1 fL [facility] NRBC abs 0.00 0.00 - 0.01 K/cumm [facility] Blood 10/29/2024 1:31 PM DRUM SANDER SETTER 10/29/2024 1:42 PM DRUM SANDER SETTER us Fran Swan MD LAB BLOOD [place] [address] [address] Department [place] [address] * (ABNORMAL) Comprehensive metabolic panel (10/29/2024 1:31 PM DRUM SANDER SETTER) Sodium 129(L) 135 - 145 mmol/L Potassium, pl 4.8 3.3 - 4.9 mmol/L [facility] Chloride 94(L) 97 - 110 mmol/L [facility] CO2 14(L) 22 - 32 mmol/L [facility] Anion gap 21(H) 2 - 15 mmol/L [facility] BUN 20 6 - 25 mg/dL [facility] Creatinine 0.93 0.60 - 1.10 mg/dL [facility] Glucose 359(H) 70 - 199 mg/dL [facility] Comment: Interpretive Data Fasting glucose >/= 126 mg/dl is diagnostic for diabetes. Fasting is defined as no caloric intake for at least 8 hours. Fasting glucose between 100 mg/dl to 125 mg/dl is diagnostic of prediabetes. In a patient with classic symptoms of hyperglycemia or hyperglycemic crisis, a random glucose >/= 200 mg/dl is diagnostic for diabetes. In the absence of unequivocal hyperglycemia, results should be confirmed by repeat testing. The classification and Diagnosis of Diabetes Diabetes Care 2021; 46: S19-S40. Current interpretive data was last revised 2022. Calcium 9.2 8.5 - 10.3 mg/dL [facility] Bilirubin, total 0.4 0.1 - 1.2 mg/dL [facility] Protein, pl 7.4 6.5 - 8.5 g/dL [facility] Albumin 3.7 3.5 - 5.0 g/dL [facility] Alk phos 131(H) 40 - 130 Units/L [facility] ALT 12 7 - 45 Units/L [facility] AST 25 10 - 45 Units/L [facility] Blood 10/29/2024 1:31 PM DRUM SANDER SETTER 10/29/2024 1:43 PM DRUM SANDER SETTER us Fran Swan MD LAB BLOOD ORDERABLES Final Result FREDERICK JOINER [address] Department [place] [address] * XR Chest 1 Vw Portable (if patient condition/safety warrant portable) (10/29/2024 1:29 PM DRUM SANDER SETTER) Anatomical Region Laterality Modality Body, Chest N/A Computed Radiogr aphy 10/29/2024 2:03 PM DRUM SANDER SETTER Impressions 10/29/2024 2:03 PM DRUM SANDER SETTER No active disease. Electronically signed by: Stu Mejia M.D. Narrative 10/29/2024 2:03 PM DRUM SANDER SETTER EXAMINATION: XR CHEST 1 VIEW DATE: 10/29/2024 1:20 PM HISTORY: elevated heart rate, cough, vomiting FINDINGS: No infiltrate, effusion or pneumothorax is present. Heart size, mediastinum and pulmonary vascularity are normal. Procedure Note Stu Mejia MD - 10/29/2024 EXAMINATION: XR CHEST 1 VIEW DATE: 10/29/2024 1:20 PM HISTORY: elevated heart rate, cough, vomiting FINDINGS: No infiltrate, effusion or pneumothorax is present. Heart size, mediastinum and pulmonary vascularity are normal. IMPRESSION: No active disease. Electronically signed by: Stu Mejia M.D. Fran Swan MD IMG XR PROCEDURES Final Re sult * ECG 12 lead (10/29/2024 12:18 PM DRUM SANDER SETTER) 10/29/2024 12:1 8 PM DRUM SANDER SETTER Narrative [facility] - 10/29/2024 12:58 PM DRUM SANDER SETTER Vent Rate: 118 bpm RR Interval: 507 msec AL Interval: 131 msec QRS Duration: 85 msec QT Interval: 313 msec QTC Interval: 383 msec P-R-T [place]: 35 - -47 - 69 degrees IMPRESSION: SINUS TACHYCARDIA LEFT AXIS DEVIATION [QRS AXIS < -30] POSSIBLE ANTERIOR MYOCARDIAL INFARCTION , OF INDETERMINATE AGE [30 ms Q WAVE IN V3/V4, OR R < 0.2 mV IN V4] ABNORMAL ECG Electronically Signed By: Rashaad Massey MD us Fran Swan MD ECG ORDERABLES Final Resu lt [facility] * (ABNORMAL) POCT glucose (10/29/2024 12:13 PM DRUM SANDER SETTER) Glucose, POC 313(H) 70 - 199 mg/dL Blood 10/29/2024 12:1 3 PM DRUM SANDER SETTER 10/29/2024 12:13 PM DRUM SANDER SETTER us Notinfile Unknown LAB POCT ORDERABLES - DEVICE F inal Result Performing Organization Address [facility] Co de Phone Number FREDERICK [address] [facility] Department [place] [address] * (ABNORMAL) POCT glucose (09/02/2024 11:26 AM DRUM SANDER SETTER) Glucose, POC 291(H) 70 - 199 mg/dL Comment:Testing performed by : [facility], [address] [place] [address]., [address] Blood 09/02/2024 11:2 6 AM DRUM SANDER SETTER 09/02/2024 11:26 AM DRUM SANDER SETTER us Juno Hernandez MD LAB POCT ORDERABLES - DEVICE Final Result Performing Organization Address City/[facility]/ZIP Co de Phone Number FREDERICK [address] [facility] Department of [place] [address] * POCT glucose (09/02/2024 7:49 AM DRUM SANDER SETTER) Glucose, POC 147 70 - 199 mg/dL Comment:Testing performed by : [address] [address] Blood 09/02/2024 7:49 AM DRUM SANDER SETTER 09/02/2024 7:49 AM DRUM SANDER SETTER Juno Hernandez MD LAB POCT ORDERABLES - DEVICE Final Result Performing Organization Address City/[facility] Co de Phone Number FREDERICK [address] [facility] Department [place] [address] * eGFR (09/02/2024 5:08 AM DRUM SANDER SETTER) Pathologist [facility] eGFR >90 >=60 mL/min/1. 73 m2 Comment: Interpretive Data Reference Interval Normal >/= 90 mL/min/1.73m2 Mildly decreased* 60 - 89 mL/min/1.73m2 Mildly to moderately decreased 45 - 59 mL/min/1.73m2 Moderately to severely decreased 30 - 44 mL/min/1.73m2 Severely decreased 15 - 29 mL/min/1.73m2 Kidney Failure < 15 mL/min/1.73m2 *Relative to young adult level Estimated glomerular filtration rate is determined by the 2020 CKD-EPI equation recommended by the National Kidney Foundation (A Unifying Approach to GFR Estimation: Recommendations of the NKF-ASK Task Force on Reassessing the Inclusion of Race in Diagnosing Kidney Disease, JASN 2020). The CKD-EPI equation should not be used for patients with unstable renal function and has not been validated in children and those over 70. Current interpretive data was last reviewed 2021. Testing performed by: [address] [address] Blood 09/02/2024 5:08 AM DRUM SANDER SETTER 09/02/2024 6:15 AM DRUM SANDER SETTER us Juno Hernandez MD LAB BLOOD ORDERABLES Final Result FREDERICK [address] [facility] Department of [place] [address] * Basic metabolic panel (09/02/2024 5:08 AM DRUM SANDER SETTER) Sodium 139 135 - 145 mmol/L Comment:Testing performed by : [facility], [address] [place] [address]., [address] Potassium, pl 3.5 3.3 - 4.9 mmol/L FREDERICK Comment:Testing performed by : [address], [place]., [address] Chloride 106 97 - 110 mmol/L FREDERICK Comment:Testing performed by : [address], [place]., [address] CO2 26 22 - 32 mmol/L FREDERICK Comment:Testing performed by : [address], [place]., [address] Anion gap 7 2 - 15 mmol/L FREDERICK Comment:Testing performed by : [address] [address] BUN 13 6 - 25 mg/dL FREDERICK Comment:Testing performed by : [address] [address] Creatinine 0.70 0.60 - 1.10 mg/dL FREDERICK Comment:Testing performed by : [address] [address] Glucose 154 70 - 199 mg/dL FREDERICK Comment: Interpretive Data Fasting glucose >/= 126 mg/dl is diagnostic for diabetes. Fasting is defined as no caloric intake for at least 8 hours. Fasting glucose between 100 mg/dl to 125 mg/dl is diagnostic of prediabetes. In a patient with classic symptoms of hyperglycemia or hyperglycemic crisis, a random glucose >/= 200 mg/dl is diagnostic for diabetes. In the absence of unequivocal hyperglycemia, results should be confirmed by repeat testing. The classification and Diagnosis of Diabetes Diabetes Care 202; 46: S19-S40. Current interpretive data was last revised 2022. Testing performed by: [address] [address] Calcium 8.9 8.5 - 10.3 mg/dL FREDERICK VALENCIA Comment:Testing performed by : [address] [address] Blood 09/02/2024 5:08 AM DRUM SANDER SETTER 09/02/2024 6:15 AM DRUM SANDER SETTER Juno Hernandez MD LAB BLOOD ORDERABLES Final Result Performing Organization Address [facility] de Phone Number JULIANJENIFER [address] [address] * POCT glucose (09/01/2024 8:17 PM DRUM SANDER SETTER) Glucose, POC 174 70 - 199 mg/dL Comment:Testing performed by : [address] [address] Glucose comment 1 Use This Result RFEDERICK Comment:Testing performed by : [address] [address] Glucose comment 2 RN/MD Notified FREDERICK Comment:Testing performed by : [address] [address] Blood 09/01/2024 8:17 PM DRUM SANDER SETTER 09/01/2024 8:17 PM DRUM SANDER SETTER Juno Hernandez MD LAB POCT ORDERABLES - DEVICE Final Result Performing Organization Address [facility] de Phone Number [address] [address] * (ABNORMAL) POCT glucose (09/01/2024 4:28 PM DRUM SANDER SETTER) Glucose, POC 206(H) 70 - 199 mg/dL Comment:Testing performed by : [address] [address] Glucose comment 1 Use This Result FREDERICK Comment:Testing performed by : [address] [address] Blood 09/01/2024 4:28 PM DRUM SANDER SETTER 09/01/2024 4:28 PM DRUM SANDER SETTER Juno Hernandez MD LAB POCT ORDERABLES - DEVICE Final Result Performing Organization Address City/[facility] Co de Phone Number FREDERICK [facility] [place] [address] * (ABNORMAL) POCT glucose (09/01/2024 12:25 PM DRUM SANDER SETTER) Glucose, POC 323(H) 70 - 199 mg/dL Comment:Testing performed by : [facility], [address] [place] [address]., [address] Glucose comment 1 RN/MD Notified FREDERICK VALENCIA Comment:Testing performed by : [address] [address] Blood 09/01/2024 12:2 5 PM DRUM SANDER SETTER 09/01/2024 12:25 PM DRUM SANDER SETTER Juno Hernandez MD LAB POCT ORDERABLES - DEVICE Final Result Performing Organization Address [facility] Co de Phone Number FREDERICK [address] [address] * POCT glucose (09/01/2024 7:37 AM DRUM SANDER SETTER) Glucose, POC 121 70 - 199 mg/dL Comment:Testing performed by : [address] [address] Glucose comment 1 Use This Result FREDERICK VALENCIA Comment:Testing performed by : [address] [address] Blood 09/01/2024 7:37 AM DRUM SANDER SETTER 09/01/2024 7:37 AM DRUM SANDER SETTER Juno Hernandez MD LAB POCT ORDERABLES - DEVICE Final Result Performing Organization Address City/[facility]/ZIP Co de Phone Number FREDERICK [facility] [employer] [place] [address] * eGFR (09/01/2024 4:44 AM DRUM SANDER SETTER) eGFR >90 >=60 mL/min/1. 73 m2 Comment: Interpretive Data Reference Interval Normal >/= 90 mL/min/1.73m2 Mildly decreased* 60 - 89 mL/min/1.73m2 Mildly to moderately decreased 45 - 59 mL/min/1.73m2 Moderately to severely decreased 30 - 44 mL/min/1.73m2 Severely decreased 15 - 29 mL/min/1.73m2 Kidney Failure < 15 mL/min/1.73m2 *Relative to young adult level Estimated glomerular filtration rate is determined by the 2020 CKD-EPI equation recommended by the National Kidney Foundation (A Unifying Approach to GFR Estimation: Recommendations of the NKF-ASK Task Force on Reassessing the Inclusion of Race in Diagnosing Kidney Disease, JASN 2020). The CKD-EPI equation should not be used for patients with unstable renal function and has not been validated in children and those over 70. Current interpretive data was last reviewed 2021. Testing performed by: [address] [address] Blood 09/01/2024 4:44 AM DRUM SANDER SETTER 09/01/2024 5:18 AM DRUM SANDER SETTER Juno Hernandez MD LAB BLOOD ORDERABLES Final Result FREDERICK [address] [facility] Department of Laboratories [employer] [id number] * Basic metabolic panel (09/01/2024 4:44 AM DRUM SANDER SETTER) Pathologist [facility] Sodium 140 135 - 145 mmol/L Comment:Testing performed by : [address] [address] Potassium, pl 3.7 3.3 - 4.9 mmol/L FREDERICK VALENCIA Comment:Testing performed by : [address] [address] Chloride 104 97 - 110 mmol/L FREDERICK VALENCIA Comment:Testing performed by : [address] [address] CO2 26 22 - 32 mmol/L FREDERICK VALENCIA Comment:Testing performed by : [address] [address] Anion gap 10 2 - 15 mmol/L FREDERICK Comment:Testing performed by : [address] [address] BUN 11 6 - 25 mg/dL FREDERICK Comment:Testing performed by : [address] [address] Creatinine 0.70 0.60 - 1.10 mg/dL FREDERICK Comment:Testing performed by : [address] [address] Glucose 126 70 - 199 mg/dL FREDERICK Comment: Interpretive Data Fasting glucose >/= 126 mg/dl is diagnostic for diabetes. Fasting is defined as no caloric intake for at least 8 hours. Fasting glucose between 100 mg/dl to 125 mg/dl is diagnostic of prediabetes. In a patient with classic symptoms of hyperglycemia or hyperglycemic crisis, a random glucose >/= 200 mg/dl is diagnostic for diabetes. In the absence of unequivocal hyperglycemia, results should be confirmed by repeat testing. The classification and Diagnosis of Diabetes Diabetes Care 202; 46: S19-S40. Current interpretive data was last revised 2022. Testing performed by: [address] [address] Calcium 9.2 8.5 - 10.3 mg/dL FREDERICK Comment:Testing performed by : [address] [address] Blood 09/01/2024 4:44 AM DRUM SANDER SETTER 09/01/2024 5:18 AM DRUM SANDER SETTER us Juno Hernandez MD LAB BLOOD ORDERABLES Final Result JULIANJENIFER [address] [facility] Department of [place] [address] * POCT glucose (08/31/2024 9:55 PM DRUM SANDER SETTER) [facility] Signature Glucose, POC 194 70 - 199 mg/dL Comment:Testing performed by : [address] [address] Glucose comment 1 Use This Result FREDERICK VALENCIA Comment:Testing performed by : [address] [address] Glucose comment 2 RN/MD Notified FREDERICK VALENCIA Comment:Testing performed by : [address] [address] Blood 08/31/2024 9:55 PM DRUM SANDER SETTER 08/31/2024 9:55 PM DRUM SANDER SETTER Juno Hernandez MD LAB POCT ORDERABLES - DEVICE Final Result Performing Organization Address [facility] [place] [facility] de Phone Number JUL[address] [employer] [place] [address] * (ABNORMAL) POCT glucose (08/31/2024 5:24 PM DRUM SANDER SETTER) [facility] Glucose, POC 221(H) 70 - 199 mg/dL Comment:Testing performed by : [address] [address] Blood 08/31/2024 5:24 PM DRUM SANDER SETTER 08/31/2024 5:24 PM DRUM SANDER SETTER Juno Hernandez MD LAB POCT ORDERABLES - DEVICE Final Result Performing Organization Address [facility] de Phone Number [address] [employer] [place] [address] * Vancomycin level trough (08/31/2024 5:18 PM DRUM SANDER SETTER) [facility] Vancomycin trough 10.2 10.0 - 20.0 mcg/mL Comment:Testing performed by : [address] [address] Blood 08/31/2024 5:18 PM DRUM SANDER SETTER 08/31/2024 5:44 PM DRUM SANDER SETTER Olivier Bhagat MD LAB BLOOD ORDERABLES Final Re sult Performing Organization Address City/[facility] Co de Phone Number [address] [employer] [place] [address] * (ABNORMAL) POCT glucose (08/31/2024 12:41 PM DRUM SANDER SETTER) Glucose, POC 280(H) 70 - 199 mg/dL Comment:Testing performed by : [facility], [address] [place] [address]., [address] Blood 08/31/2024 12:4 1 PM DRUM SANDER SETTER 08/31/2024 12:41 PM DRUM SANDER SETTER us Juno Hernandez MD LAB POCT ORDERABLES - DEVICE Final Result [facility] [place] [address] * XR Chest 1 View (08/31/2024 11:01 AM DRUM SANDER SETTER) Anatomical Region Laterality Modality Body, Chest N/A Computed Radiogr aphy 08/31/2024 1:04 PM DRUM SANDER SETTER Narrative 08/31/2024 1:07 PM DRUM SANDER SETTER EXAM DESCRIPTION: XR CHEST 1 VIEW REASON FOR STUDY: SOB TECHNIQUE: Single radiographic view(s) of the chest. COMPARISON: Chest radiograph 07/21/2024 FINDINGS: LUNGS: Mild bilateral emphysematous changes. Right lower lobe opacity may represent consolidation or atelectasis. Small right pleural effusion. No pneumothorax. HEART/MEDIASTINUM: Cardiac silhouette normal in size. Mediastinal and hilar contours appear normal. LINES/TUBES: None. BONES: No acute osseous abnormality. IMPRESSION: Right lower lobe opacity may represent consolidation or atelectasis. Small right pleural effusion. THIS IS AN ELECTRONICALLY VERIFIED FINAL REPORT 08/31/2024 1:07 PM - Electronically signed by Joyce Jackson M.D. FT: FT Report ID: [id number] Reading Location: [id number] Procedure Note Joyce Tang MD - 08/31/2024 EXAM DESCRIPTION: XR CHEST 1 VIEW REASON FOR STUDY: SOB TECHNIQUE: Single radiographic view(s) of the chest. COMPARISON: Chest radiograph 07/21/2024 FINDINGS: LUNGS: Mild bilateral emphysematous changes. Right lower lobe opacity may represent consolidation or atelectasis. Small right pleural effusion. No pneumothorax. HEART/MEDIASTINUM: Cardiac silhouette normal in size. Mediastinal andhilar contours appear normal. LINES/TUBES: None. BONES: No acute osseous abnormality. IMPRESSION: Right lower lobe opacity may represent consolidation or atelectasis. Small right pleural effusion. THIS IS AN ELECTRONICALLY VERIFIED FINAL REPORT 08/31/2024 1:07 PM - Electronically signed by Joyce Jackson M.D. FT: FT Report ID: [id number] Reading Location: [place] [address] Juno Hernandez MD IMG XR PROCEDURES Fi nal Result * POCT glucose (08/31/2024 7:46 AM DRUM SANDER SETTER) Pathologist [facility] Glucose, POC 147 70 - 199 mg/dL Comment:Testing performed by : [facility], [address] [place] [address]., [address] Blood 08/31/2024 7:46 AM DRUM SANDER SETTER 08/31/2024 7:46 AM DRUM SANDER SETTER Juno Hernandez MD LAB POCT ORDERABLES - DEVICE Final Result [facility] [address] [facility] Department of [place] [address] * eGFR (08/31/2024 4:09 AM DRUM SANDER SETTER) Pathologist [facility] eGFR 69 >=60 mL/min/1. 73 m2 Comment: Interpretive Data Reference Interval Normal >/= 90 mL/min/1.73m2 Mildly decreased* 60 - 89 mL/min/1.73m2 Mildly to moderately decreased 45 - 59 mL/min/1.73m2 Moderately to severely decreased 30 - 44 mL/min/1.73m2 Severely decreased 15 - 29 mL/min/1.73m2 Kidney Failure < 15 mL/min/1.73m2 *Relative to young adult level Estimated glomerular filtration rate is determined by the 2020 CKD-EPI equation recommended by the National Kidney Foundation (A Unifying Approach to GFR Estimation: Recommendations of the NKF-ASK Task Force on Reassessing the Inclusion of Race in Diagnosing Kidney Disease, JASN 2020). The CKD-EPI equation should not be used for patients with unstable renal function and has not been validated in children and those over 70. Current interpretive data was last reviewed 2021. Testing performed by: [address] [address] Blood 08/31/2024 4:09 AM DRUM SANDER SETTER 08/31/2024 4:18 AM DRUM SANDER SETTER Juno Hernandez MD LAB BLOOD ORDERABLES Final Result [facility] Department [place] [address] * Basic metabolic panel (08/31/2024 4:09 AM DRUM SANDER SETTER) Sodium 141 135 - 145 mmol/L Comment:Testing performed by : [address] [address] Potassium, pl 3.6 3.3 - 4.9 mmol/L [facility] Comment:Testing performed by : [address] [address] Chloride 106 97 - 110 mmol/L [facility] Comment:Testing performed by : [address] [address] CO2 27 22 - 32 mmol/L [facility] Comment:Testing performed by : [address] [address] Anion gap 8 2 - 15 mmol/L [facility] Comment:Testing performed by : [address] [address] BUN 9 6 - 25 mg/dL [facility] VALENCIA Comment:Testing performed by : [address] [address] Creatinine 0.90 0.60 - 1.10 mg/dL [facility] Comment:Testing performed by : [address] [address] Glucose 177 70 - 199 mg/dL [facility] Comment: Interpretive Data Fasting glucose >/= 126 mg/dl is diagnostic for diabetes. Fasting is defined as no caloric intake for at least 8 hours. Fasting glucose between 100 mg/dl to 125 mg/dl is diagnostic of prediabetes. In a patient with classic symptoms of hyperglycemia or hyperglycemic crisis, a random glucose >/= 200 mg/dl is diagnostic for diabetes. In the absence of unequivocal hyperglycemia, results should be confirmed by repeat testing. The classification and Diagnosis of Diabetes Diabetes Care 202; 46: S19-S40. Current interpretive data was last revised 2022. Testing performed by: [address] [address] Calcium 9.3 8.5 - 10.3 mg/dL [facility] Comment:Testing performed by : [address] [address] Blood 08/31/2024 4:09 AM DRUM SANDER SETTER 08/31/2024 4:18 AM DRUM SANDER SETTER us Juno Hernandez MD LAB BLOOD ORDERABLES Final Result [facility] [address] [facility] Department of [employer] [id number] * (ABNORMAL) POCT glucose (08/30/2024 8:28 PM DRUM SANDER SETTER) [facility] Glucose, POC 279(H) 70 - 199 mg/dL Comment:Testing performed by : [address] [address] Glucose comment 1 Use This Result [facility] Comment:Testing performed by : [address] [address] Glucose comment 2 RN/MD Notified [facility] VAL[facility] Comment:Testing performed by : [address] [address] Blood 08/30/2024 8:28 PM DRUM SANDER SETTER 08/30/2024 8:28 PM DRUM SANDER SETTER us Juno Hernanedz MD LAB POCT ORDERABLES - DEVICE Final Result Performing Organization Address City/[facility]/ZIP Co de Phone Number [facility] [address] [address] * (ABNORMAL) POCT glucose (08/30/2024 3:58 PM DRUM SANDER SETTER) Glucose, POC 209(H) 70 - 199 mg/dL Comment:Testing performed by : [address] [address] Blood 08/30/2024 3:58 PM DRUM SANDER SETTER 08/30/2024 3:58 PM DRUM SANDER SETTER us Juno Hernandez MD LAB POCT ORDERABLES - DEVICE Final Result Performing Organization Address [facility] Co de Phone Number [facility] [address] [address] * (ABNORMAL) POCT glucose (08/30/2024 11:51 AM DRUM SANDER SETTER) Glucose, POC 304(H) 70 - 199 mg/dL Comment:Testing performed by : [address] [address] Blood 08/30/2024 11:5 1 AM DRUM SANDER SETTER 08/30/2024 11:51 AM DRUM SANDER SETTER us Juno Hernandez MD LAB POCT ORDERABLES - DEVICE Final Result Performing Organization Address City/[facility] Co de Phone Number [facility] [address] [address] * POCT glucose (08/30/2024 7:34 AM DRUM SANDER SETTER) Glucose, POC 141 70 - 199 mg/dL Comment:Testing performed by : [address] [address] Blood 08/30/2024 7:34 AM DRUM SANDER SETTER 08/30/2024 7:34 AM DRUM SANDER SETTER us Juno Hernandez MD LAB POCT ORDERABLES - DEVICE Final Result Performing Organization Address City/[facility]/ZIP Co de Phone Number [facility] [address] [employer] [place] [address] * eGFR (08/30/2024 4:19 AM DRUM SANDER SETTER) eGFR 69 >=60 mL/min/1. 73 m2 Comment: Interpretive Data Reference Interval Normal >/= 90 mL/min/1.73m2 Mildly decreased* 60 - 89 mL/min/1.73m2 Mildly to moderately decreased 45 - 59 mL/min/1.73m2 Moderately to severely decreased 30 - 44 mL/min/1.73m2 Severely decreased 15 - 29 mL/min/1.73m2 Kidney Failure < 15 mL/min/1.73m2 *Relative to young adult level Estimated glomerular filtration rate is determined by the 2020 CKD-EPI equation recommended by the National Kidney Foundation (A Unifying Approach to GFR Estimation: Recommendations of the NKF-ASK Task Force on Reassessing the Inclusion of Race in Diagnosing Kidney Disease, JASN 2020). The CKD-EPI equation should not be used for patients with unstable renal function and has not been validated in children and those over 70. Current interpretive data was last reviewed 2021. Testing performed by: [facility], [address] [place] [address]., [address] Blood 08/30/2024 4:19 AM DRUM SANDER SETTER 08/30/2024 4:28 AM DRUM SANDER SETTER us Juno Hernandez MD LAB BLOOD ORDERABLES Final Result [facility]0 [facility] [place] [address] * Basic metabolic panel (08/30/2024 4:19 AM DRUM SANDER SETTER) Sodium 142 135 - 145 mmol/L Comment:Testing performed by : [facility], [address] [place] [address], [place]., [address] Potassium, pl 3.6 3.3 - 4.9 mmol/L [facility] Comment:Testing performed by : [address], [place]., [address] Chloride 106 97 - 110 mmol/L [facility] Comment:Testing performed by : [address], [place]., [address] CO2 26 22 - 32 mmol/L [facility] Comment:Testing performed by : [address], [place]., [address] Anion gap 10 2 - 15 mmol/L [facility] Comment:Testing performed by : [address], [place]., [address] BUN 8 6 - 25 mg/dL [facility] Comment:Testing performed by : [address], [place]., [address] Creatinine 0.90 0.60 - 1.10 mg/dL [facility] Comment:Testing performed by : [address], [place]., [address] Glucose 164 70 - 199 mg/dL [facility] Comment: Interpretive Data Fasting glucose >/= 126 mg/dl is diagnostic for diabetes. Fasting is defined as no caloric intake for at least 8 hours. Fasting glucose between 100 mg/dl to 125 mg/dl is diagnostic of prediabetes. In a patient with classic symptoms of hyperglycemia or hyperglycemic crisis, a random glucose >/= 200 mg/dl is diagnostic for diabetes. In the absence of unequivocal hyperglycemia, results should be confirmed by repeat testing. The classification and Diagnosis of Diabetes Diabetes Care 202; 46: S19-S40. Current interpretive data was last revised 2022. Testing performed by: [address], [place]., [address] Calcium 9.3 8.5 - 10.3 mg/dL [facility] Comment:Testing performed by : [address], [place]., [address] Blood 08/30/2024 4:19 AM DRUM SANDER SETTER 08/30/2024 4:28 AM DRUM SANDER SETTER us Juno Hernandez MD LAB BLOOD ORDERABLES Final Result Performing Organization Address City/[facility]/ZIP Co de Phone Number [facility] [place] [address] * Thyroid Function Merrick (08/29/2024 11:30 PM DRUM SANDER SETTER) Pathologist [facility] TSH 3.73 0.30 - 4.20 mcIUnit/mL Comment:Testing performed by : [address] [address] Blood 08/29/2024 11:3 0 PM DRUM SANDER SETTER 08/29/2024 11:39 PM DRUM SANDER SETTER us Juno Hernandez MD LAB BLOOD ORDERABLES Final Result Performing Organization Address [facility] Co de Phone Number [facility]ER[facility] [address] [address] * N. gonorrhoeae/C. trachomatis Amplification Vaginal (08/29/2024 10:09 PM DRUM SANDER SETTER) Pathologist [facility] C. trachomatis Not Detected Not Detected Comment:Testing performed by : [address] [address] N. gonorrhoeae Not Detected Not Detected [facility] Comment: Interpretive Data This assay detects Chlamydia trachomatis and Neisseria gonorrhoeae by nucleic acid amplification testing (NAAT). This assay has been cleared by the [place] Food and Drug administration. The performance characteristics of this test have been verified by the [facility]. The performance characteristics of this test have not been evaluated in individuals less than 14 years of age. Current Interpretive Data last revised 2023. Testing performed by: [address] [address] Vaginal (None) 08/29/2024 10 :09 PM DRUM SANDER SETTER 08/29/2024 10:31 PM DRUM SANDER SETTER us Juno Hernandez MD LAB MICROBIOLOGY - G ENERAL ORDERABLES Final Result Performing Organization Address [facility] Co de Phone Number [facility] [address] [place] [address] * Trichomonas vaginalis PCR Vaginal (08/29/2024 10:09 PM DRUM SANDER SETTER) [facility] Trichomonas DNA Not Detected Not Detected [facility] Comment: Interpretive Data This assay detects Trichomonas vaginalis by nucleic acid amplification testing (NAAT). This assay has been cleared by the [place] Food and Drug administration. The performance characteristics of this test have been verified by the [facility] Molecular Infectious Disease laboratory. Excess blood in specimens may be inhibitory and result in false negative results. The performance of this test has not been evaluated in women or individuals less than 18 years of age. Current Interpretive Data last revised 2023. Testing performed by: [facility], [address] [place] [address]., [address] Vaginal 08/29/2024 10:0 9 PM DRUM SANDER SETTER 08/29/2024 10:31 PM DRUM SANDER SETTER Juno Hernandez MD LAB MICROBIOLOGY - G ENERAL ORDERABLES Final Result Performing Organization Address [facility] de Phone Number [facility] [address] [place] [address] [facility] * (ABNORMAL) POCT glucose (08/29/2024 8:50 PM DRUM SANDER SETTER) [facility] Glucose, POC 203(H) 70 - 199 mg/dL Comment:Testing performed by : [address] [address] Glucose comment 1 Use This Result [facility] Comment:Testing performed by : [address] [address] Blood 08/29/2024 8:50 PM DRUM SANDER SETTER 08/29/2024 8:50 PM DRUM SANDER SETTER us Juno Hernandez MD LAB POCT ORDERABLES - DEVICE Final Result Performing Organization Address [facility] Co de Phone Number [facility] [address] [place] [address] * POCT glucose (08/29/2024 6:15 PM DRUM SANDER SETTER) [facility] Glucose, POC 181 70 - 199 mg/dL Comment:Testing performed by : [address] [address] Blood 08/29/2024 6:15 PM DRUM SANDER SETTER 08/29/2024 6:15 PM DRUM SANDER SETTER us Juno Hernandez MD LAB POCT ORDERABLES - DEVICE Final Result Performing Organization Address [facility] Co de Phone Number [facility] [address] [place] [address] * Vaginitis panel Vaginal (08/29/2024 5:16 PM DRUM SANDER SETTER) [facility] Cristina DNA probe Not Detected Not Detected Comment:Testing performed by : [address] [address] Gardnerella DNA probe Not Detected Not Detected [facility] Comment:Testing performed by : [address] [address] Trichomonas DNA probe Not Detected Not Detected [facility] Comment: Interpretive Data Testing performed by [facility] via [employer] VPIII Microbial Identification Test, a DNA probe test for use in the detection and identification of Cristina species, Gardnerella vaginalis and Trichomonas vaginalis nucleic acid in vaginal fluid specimens from patients with symptoms of vaginitis/vaginosis. Negative results for these tests suggest the patient does not have candidiasis, bacterial vaginosis and/or trichomoniasis when consistent with clinical signs and symptoms. Current interpretive data was last revised on 2020. Testing performed by: [address] [address] Vaginal 08/29/2024 5:16 PM DRUM SANDER SETTER 08/29/2024 5:51 PM DRUM SANDER SETTER us Juno Hernandez MD LAB MICROBIOLOGY - G ENERAL ORDERABLES Final Result Performing Organization Address [facility] de Phone Number [facility] [address] [address] * (ABNORMAL) POCT glucose (08/29/2024 12:47 PM DRUM SANDER SETTER) Glucose, POC 271(H) 70 - 199 mg/dL Comment:Testing performed by : [address] [address] Blood 08/29/2024 12:4 7 PM DRUM SANDER SETTER 08/29/2024 12:47 PM DRUM SANDER SETTER Juno Hernandez MD LAB POCT ORDERABLES - DEVICE Final Result Performing Organization Address [facility] de Phone Number [facility] [address] [address] * POCT glucose (08/29/2024 8:29 AM DRUM SANDER SETTER) [facility] Glucose, POC 134 70 - 199 mg/dL Comment:Testing performed by : [address] [address] Blood 08/29/2024 8:29 AM DRUM SANDER SETTER 08/29/2024 8:29 AM DRUM SANDER SETTER us Juno Hernandez MD LAB POCT ORDERABLES - DEVICE Final Result Performing Organization Address [facility] Co de Phone Number [facility] [address] [employer] [place] [address] * ECG 12 lead (08/29/2024 8:13 AM DRUM SANDER SETTER) [facility] Ventricular Rate EKG/Min 66 BPM [facility] Atrial Rate 66 BPM [facility] AL-Interval (MSEC) 140 ms [facility] QRS-Interval (MSEC) 88 ms [facility] QT-Interval (MSEC) 420 ms [facility] QTc 440 ms [facility] P [place] 54 degrees [facility] R [place] -1 degrees [facility] T [place] 35 degrees [facility] Diagnosis Normal sinus rhythm Possible Inferior infarct , age undetermined Abnormal ECG No previous ECGs available Confirmed by JYOTSNA DOS SANTOS M.D. ([id number]) on 08/29/2024 10:44:27 AM [facility] 08/29/2024 8:13 AM DRUM SANDER SETTER 08/29/2024 10:44 AM DRUM SANDER SETTER Olivier Bhagat MD ECG ORDERABLES Final Result Performing Organization Address City/[facility]/ZIP Co de Phone Number [facility] * eGFR (08/29/2024 1:21 AM DRUM SANDER SETTER) eGFR 80 >=60 mL/min/1. 73 m2 Comment: Interpretive Data Reference Interval Normal >/= 90 mL/min/1.73m2 Mildly decreased* 60 - 89 mL/min/1.73m2 Mildly to moderately decreased 45 - 59 mL/min/1.73m2 Moderately to severely decreased 30 - 44 mL/min/1.73m2 Severely decreased 15 - 29 mL/min/1.73m2 Kidney Failure < 15 mL/min/1.73m2 *Relative to young adult level Estimated glomerular filtration rate is determined by the 2020 CKD-EPI equation recommended by the National Kidney Foundation (A Unifying Approach to GFR Estimation: Recommendations of the NKF-ASK Task Force on Reassessing the Inclusion of Race in Diagnosing Kidney Disease, JASN 2020). The CKD-EPI equation should not be used for patients with unstable renal function and has not been validated in children and those over 70. Current interpretive data was last reviewed 2021. Testing performed by: [facility], [address] [place] [address]., [address] Blood 08/29/2024 1:21 AM DRUM SANDER SETTER 08/29/2024 1:37 AM DRUM SANDER SETTER Olivier Bhagat MD LAB BLOOD ORDERABLES Final Re sult [facility] [address] [facility] Department [place] [address] * (ABNORMAL) Comprehensive metabolic panel (08/29/2024 1:21 AM DRUM SANDER SETTER) Sodium 141 135 - 145 mmol/L Comment:Testing performed by : [address] [address] Potassium, pl 3.6 3.3 - 4.9 mmol/L [facility] Comment:Testing performed by : [address], [place]., [address] Chloride 107 97 - 110 mmol/L [facility] Comment:Testing performed by : [address], [place]., [address] CO2 24 22 - 32 mmol/L [facility] Comment:Testing performed by : [address] [address] Anion gap 10 2 - 15 mmol/L [facility] Comment:Testing performed by : [address], [place]., [address] BUN 4(L) 6 - 25 mg/dL [facility] Comment:Testing performed by : [address], [place]., [address] Creatinine 0.80 0.60 - 1.10 mg/dL [facility] Comment:Testing performed by : [address] [address] Glucose 166 70 - 199 mg/dL [facility] Comment: Interpretive Data Fasting glucose >/= 126 mg/dl is diagnostic for diabetes. Fasting is defined as no caloric intake for at least 8 hours. Fasting glucose between 100 mg/dl to 125 mg/dl is diagnostic of prediabetes. In a patient with classic symptoms of hyperglycemia or hyperglycemic crisis, a random glucose >/= 200 mg/dl is diagnostic for diabetes. In the absence of unequivocal hyperglycemia, results should be confirmed by repeat testing. The classification and Diagnosis of Diabetes Diabetes Care 202; 46: S19-S40. Current interpretive data was last revised 2022. Testing performed by: [address] [address] Calcium 9.1 8.5 - 10.3 mg/dL [facility] Comment:Testing performed by : [address] [address] Bilirubin, total 0.3 0.1 - 1.2 mg/dL [facility] Comment:Testing performed by : [address] [address] Protein, pl 5.3(L) 6.5 - 8.5 g/dL [facility] Comment:Testing performed by : [address] [address] Albumin 3.3(L) 3.5 - 5.0 g/dL [facility] Comment:Testing performed by : [address] [address] Alk phos 83 40 - 130 Units/L [facility] Comment:Testing performed by : [address] [address] ALT 8 7 - 45 Units/L [facility] Comment:Testing performed by : [address] [address] AST 9(L) 10 - 45 Units/L [facility] Comment:Testing performed by : [address] [address] Blood 08/29/2024 1:21 AM DRUM SANDER SETTER 08/29/2024 1:37 AM DRUM SANDER SETTER us Olivier Bhagat MD LAB BLOOD ORDERABLES Final Re sult [facility] [address] [facility] Department of [place] [address] * (ABNORMAL) POCT glucose (08/28/2024 8:30 PM DRUM SANDER SETTER) [facility] Glucose, POC 245(H) 70 - 199 mg/dL Comment:Testing performed by : [address] [address] Glucose comment 1 Use This Result [facility] Comment:Testing performed by : [address] [address] Blood 08/28/2024 8:30 PM DRUM SANDER SETTER 08/28/2024 8:30 PM DRUM SANDER SETTER us Juno Hernandez MD LAB POCT ORDERABLES - DEVICE Final Result Performing Organization Address [facility] Co de Phone Number [facility] [address] [address] * (ABNORMAL) POCT glucose (08/28/2024 5:12 PM DRUM SANDER SETTER) Glucose, POC 242(H) 70 - 199 mg/dL Comment:Testing performed by : [facility], [address] [place] [address]., [address] Glucose comment 1 Use This Result [facility] Comment:Testing performed by : [address] [id number] Blood 08/28/2024 5:12 PM DRUM SANDER SETTER 08/28/2024 5:12 PM DRUM SANDER SETTER Juno Hernandez MD LAB POCT ORDERABLES - DEVICE Final Result Performing Organization Address [facility] de Phone Number FREDERICK [address] [address] * POCT glucose (08/28/2024 11:57 AM DRUM SANDER SETTER) Glucose, POC 166 70 - 199 mg/dL Comment:Testing performed by : [facility], [address] [place] [address]., [id number] Glucose comment 1 Use This Result FREDERICK Comment:Testing performed by : [address] [address] Blood 08/28/2024 11:5 7 AM DRUM SANDER SETTER 08/28/2024 11:57 AM DRUM SANDER SETTER Juno Hernandez MD LAB POCT ORDERABLES - DEVICE Final Result Performing Organization Address [facility] Co de Phone Number FREDERICK [address] [address] * CT Abdomen Pelvis W Contrast (08/28/2024 11:27 AM DRUM SANDER SETTER) Anatomical Region Laterality Modality Body N/A Computed Tomogra phy 08/28/2024 12:0 3 PM DRUM SANDER SETTER Narrative 08/28/2024 12:22 PM DRUM SANDER SETTER EXAM DESCRIPTION: CT ABDOMEN PELVIS W CONTRAST REASON FOR STUDY: LLQ abdominal pain LLQ abdominal pain Sepsis due to anaerobic bacteria TECHNIQUE: CT scan of the abdomen and pelvis performed with intravenous and without oral contrast using helical scanning technique with dynamic intravenous contrast injection. Reconstructed coronal and sagittal MPR images reviewed. All images stored on PACS. Automated exposure control was used as a dose optimization technique for this examination. CONTRAST TYPE/DOSE: 100mL of IOVERSOL 350 MG IODINE/ML INTRAVENOUS SYRINGE injected via intravenous COMPARISON: 07/21/2024 REFERENCE: Per ACR white paper recommendations, unless otherwise specified no follow-up imaging is recommended for incidental renal and adrenal lesions per consensus recommendations based on imaging criteria. Further lab evaluation could be pursued based on clinical findings. FINDINGS: LOWER CHEST: No significant pulmonary abnormalities. No effusion. LIVER: No concerning lesions. GALLBLADDER/BILE DUCTS: Mild prominence of the biliary ducts similar to prior and likely physiologic in the setting of cholecystectomy. SPLEEN: Small splenule, otherwise unremarkable. PANCREAS: Diffuse parenchymal atrophy without ductal dilatation or discrete lesion. ADRENALS: No measurable nodule. KIDNEYS/URETERS: Nonobstructing small and punctate right-sided nephrolithiasis. No hydronephrosis. BLADDER/URINARY: No significant wall thickening. Apparent partial tethering of the left posterolateral bladder wall to the sigmoid colon may reflect chronic scarring (such as series 5, image 73). REPRODUCTIVE: Status post hysterectomy. Bilateral ovaries are not definitively visualized and are poorly evaluated by CT. Mild asymmetric soft tissue fullness of the perineum likely secondary to pelvic floor laxity (such as series 2 image 146-150). GASTROINTESTINAL: Scattered colonic diverticulosis. Mild short-segment wall thickening of the sigmoid colon at site of previously characterized diverticulitis which may be accentuated by decompression and chronic scarring in the setting of diverticulosis. Thickening of the peritoneum in the left lower quadrant with short-segment tethering of the adjacent sigmoid colonic wall compatible with scarring (such as series 4 image 55). LYMPH NODES: No pathologically enlarged abdominal or pelvic lymphadenopathy. PERITONEUM/RETROPERITONEUM: Peritoneal thickening and scarring in the left lower quadrant as detailed above. No significant free fluid. No free air. No organized drainable fluid collection. VASCULATURE: Multifocal atherosclerotic changes of the abdominal aorta and its major branches. No abdominal aortic aneurysm. Grossly patent portal vein. MUSCULOSKELETAL: Multilevel degenerative changes of the visualized spine. No aggressive appearing osseous lesions. No acute osseous abnormality. OTHER: No significant abnormality. IMPRESSION: No definite acute abnormality with the abdomen or pelvis. Mild short-segment wall thickening of the sigmoid colon which is likely accentuated by decompression and chronic scarring as detailed above. Mild nonspecific colitis could give a similar appearance. Recommend follow-up colonoscopy to exclude underlying mass if not recently performed. Nonobstructing right nephrolithiasis. THIS IS AN ELECTRONICALLY VERIFIED FINAL REPORT 08/28/2024 12:22 PM - Electronically signed by Alexandr Goodson M.D. NS: NS Report ID: [id number] Reading Location: [id number] Procedure Note Alexandr Goodson MD - 08/28/2024 EXAM DESCRIPTION: CT ABDOMEN PELVIS W CONTRAST REASON FOR STUDY: LLQ abdominal pain LLQ abdominal pain Sepsis due to anaerobic bacteria TECHNIQUE: CT scan of the abdomen and pelvis performed with intravenousand without oral contrast using helical scanning technique with dynamic intravenous contrast injection. Reconstructed coronal and sagittal MPRimages reviewed. All images stored on PACS. Automated exposure control was usedas a dose optimization technique for this examination. CONTRAST TYPE/DOSE: 100mL of IOVERSOL 350 MG IODINE/ML INTRAVENOUSSYRINGE injected via intravenous COMPARISON: 07/21/2024 REFERENCE: Per ACR white paper recommendations, unless otherwise specifiedno follow-up imaging is recommended for incidental renal and adrenal lesionsper consensus recommendations based on imaging criteria. Further labevaluation could be pursued based on clinical findings. FINDINGS: LOWER CHEST: No significant pulmonary abnormalities. Noeffusion. LIVER: No concerning lesions. GALLBLADDER/BILE DUCTS: Mild prominence of the biliary ducts similar toprior and likely physiologic in the setting of cholecystectomy. SPLEEN: Small splenule, otherwise unremarkable. PANCREAS: Diffuse parenchymal atrophy without ductal dilatation ordiscrete lesion. ADRENALS: No measurable nodule. KIDNEYS/URETERS: Nonobstructing small and punctate right-sided nephrolithiasis. No hydronephrosis. BLADDER/URINARY: No significant wall thickening. Apparent partialtethering of the left posterolateral bladder wall to the sigmoid colon may reflect chronic scarring (such as series 5, image 73). REPRODUCTIVE: Status post hysterectomy. Bilateral ovaries are not definitively visualized and are poorly evaluated by CT. Mild asymmetricsoft tissue fullness of the perineum likely secondary to pelvic floor laxity(such as series 2 image 146-150). GASTROINTESTINAL: Scattered colonic diverticulosis. Mild short-segmentwall thickening of the sigmoid colon at site of previously characterized diverticulitis which may be accentuated by decompression and chronicscarring in the setting of diverticulosis. Thickening of the peritoneum in theleft lower quadrant with short-segment tethering of the adjacent sigmoidcolonic wall compatible with scarring (such as series 4 image 55). LYMPH NODES: No pathologically enlarged abdominal or pelviclymphadenopathy. PERITONEUM/RETROPERITONEUM: Peritoneal thickening and scarring in theleft lower quadrant as detailed above. No significant free fluid. No freeair. No organized drainable fluid collection. VASCULATURE: Multifocal atherosclerotic changes of the abdominal aortaand its major branches. No abdominal aortic aneurysm. Grossly patent portalvein. MUSCULOSKELETAL: Multilevel degenerative changes of the visualized spine.No aggressive appearing osseous lesions. No acute osseous abnormality. OTHER: No significant abnormality. IMPRESSION: No definite acute abnormality with the abdomen or pelvis. Mild short-segment wall thickening of the sigmoid colon which is likely accentuated by decompression and chronic scarring as detailed above. Mild nonspecific colitis could give a similar appearance. Recommend follow-up colonoscopy to exclude underlying mass if not recently performed. Nonobstructing right nephrolithiasis. THIS IS AN ELECTRONICALLY VERIFIED FINAL REPORT 08/28/2024 12:22 PM - Electronically signed by Alexandr Goodson M.D. NS: NS Report ID: [id number] Reading Location: [place] [address] us Olivier Bhagat MD IM CT PROCEDURES Final Resul t * POCT glucose (08/28/2024 8:17 AM DRUM SANDER SETTER) Glucose, POC 153 70 - 199 mg/dL Comment:Testing performed by : [facility], [address] [place] [address]., [id number] Glucose comment 1 Use This Result FREDERICK VALENCIA Comment:Testing performed by : [address] [address] Blood 08/28/2024 8:17 AM DRUM SANDER SETTER 08/28/2024 8:17 AM DRUM SANDER SETTER us Juno Hernandez MD LAB POCT ORDERABLES - DEVICE Final Result Performing Organization Address City/[facility]/ZIP Co de Phone Number JULIAN[address] [address] * Lactate (08/28/2024 7:12 AM DRUM SANDER SETTER) Pathologist [facility] Lactate 1.6 0.7 - 2.0 mmol/L Comment:Testing performed by : [address] [address] Blood 08/28/2024 7:12 AM DRUM SANDER SETTER 08/28/2024 7:16 AM DRUM SANDER SETTER us Olivier Bhagat MD LAB BLOOD ORDERABLES Final Re sult Performing Organization Address City/[facility]/ZIP Co de Phone Number JULIAN[address] [address] * eGFR (08/28/2024 7:12 AM DRUM SANDER SETTER) eGFR 80 >=60 mL/min/1. 73 m2 Comment: Interpretive Data Reference Interval Normal >/= 90 mL/min/1.73m2 Mildly decreased* 60 - 89 mL/min/1.73m2 Mildly to moderately decreased 45 - 59 mL/min/1.73m2 Moderately to severely decreased 30 - 44 mL/min/1.73m2 Severely decreased 15 - 29 mL/min/1.73m2 Kidney Failure < 15 mL/min/1.73m2 *Relative to young adult level Estimated glomerular filtration rate is determined by the 2020 CKD-EPI equation recommended by the National Kidney Foundation (A Unifying Approach to GFR Estimation: Recommendations of the NKF-ASK Task Force on Reassessing the Inclusion of Race in Diagnosing Kidney Disease, JASN 2020). The CKD-EPI equation should not be used for patients with unstable renal function and has not been validated in children and those over 70. Current interpretive data was last reviewed 2021. Testing performed by: [address] [address] Blood 08/28/2024 7:12 AM DRUM SANDER SETTER 08/28/2024 7:25 AM DRUM SANDER SETTER us Juno Hernandez MD LAB BLOOD ORDERABLES Final Result [facility] [address] [facility] Department of [place] [address] * (ABNORMAL) Differential, auto (08/28/2024 7:12 AM DRUM SANDER SETTER) Neutrophil abs 5.8 1.5 - 6.5 K/cumm Comment:Testing performed by : [address] [address] Imm gran abs 0.1 0.0 - 0.1 K/cumm FREDERICK Comment:Testing performed by : [address] [address] Lymphocyte abs 3.6(H) 0.8 - 3.3 K/cumm FREDERICK Comment:Testing performed by : [address] [address] Monocyte abs 0.7 0.2 - 0.8 K/cumm FREDERICK Comment:Testing performed by : [address] [address] Eosinophil abs 0.1 0.0 - 0.5 K/cumm FREDERICK Comment:Testing performed by : [address] [address] Basophil abs 0.1 0.0 - 0.1 K/cumm FREDERICK Comment:Testing performed by : [address] [address] Neutrophil pct 56.3 % FREDERICK Comment: Interpretive Data Percent cell count reference ranges are not reported, since discordance with absolute values may lead to misinterpretation of CBC data. Current Interpretive Data was last revised on 2017. Testing performed by: [address] [address] Imm gran pct 0.7 % [facility] Comment: Interpretive Data Percent cell count reference ranges are not reported, since discordance with absolute values may lead to misinterpretation of CBC data. Current Interpretive Data was last revised on 2017. Testing performed by: [address] [address] Lymphocyte pct 34.6 % [facility] Comment: Interpretive Data Percent cell count reference ranges are not reported, since discordance with absolute values may lead to misinterpretation of CBC data. Current Interpretive Data was last revised on 2017. Testing performed by: [address] [address] Monocyte pct 6.6 % [facility] Comment: Interpretive Data Percent cell count reference ranges are not reported, since discordance with absolute values may lead to misinterpretation of CBC data. Current Interpretive Data was last revised on 2017. Testing performed by: [address] [address] Eosinophil pct 1.3 % [facility] Comment: Interpretive Data Percent cell count reference ranges are not reported, since discordance with absolute values may lead to misinterpretation of CBC data. Current Interpretive Data was last revised on 2017. Testing performed by: [address] [address] Basophil pct 0.5 % [facility] Comment: Interpretive Data Percent cell count reference ranges are not reported, since discordance with absolute values may lead to misinterpretation of CBC data. Current Interpretive Data was last revised on 2017. Testing performed by: [address] [address] Blood 08/28/2024 7:12 AM DRUM SANDER SETTER 08/28/2024 7:25 AM DRUM SANDER SETTER us Olivier Bhagat MD LAB BLOOD ORDERABLES Final Re sult FREDERICK [address] [facility] Department of Laboratories [employer], [place] [id number] * (ABNORMAL) CBC with auto differential (08/28/2024 7:12 AM DRUM SANDER SETTER) [facility] WBC 10.4(H) 3.8 - 9.9 K/cumm Comment:Testing performed by : [address], [address] Hgb 12.3 11.9 - 15.5 g/dL FREDERICK Comment:Testing performed by : [address], [address] Hct 38.0 35.6 - 45.5 % FREDERICK Comment:Testing performed by : [address], [address] Plt 216 150 - 400 K/cumm FREDERICK Comment:Testing performed by : [address], [address] MPV 10.9 9.1 - 12.3 fL FREDERICK Comment:Testing performed by : [address], [address] RBC 4.56 3.90 - 5.20 M/cumm FREDERICK Comment:Testing performed by : [address], [address] MCV 83.3 81.3 - 96.4 fL FREDERICK Comment:Testing performed by : [address] [address] MCH 27.0(L) 27.1 - 33.3 pg FREDERICK Comment:Testing performed by : [address], [address] MCHC 32.4 32.3 - 35.7 g/dL FREDERICK Comment:Testing performed by : [address], [address] RDW CV 15.3(H) 11.1 - 14.9 % FREDERICK Comment:Testing performed by : [address], [address] RDW SD 46.2 35.7 - 48.1 fL FREDERICK Comment:Testing performed by : [address], [address] NRBC abs 0.00 0.00 - 0.01 K/cumm FREDERICK Comment:Testing performed by : [address] [address] Blood 08/28/2024 7:12 AM DRUM SANDER SETTER 08/28/2024 7:25 AM DRUM SANDER SETTER Olivier Bhagat MD LAB BLOOD ORDERABLES Final Re sult Performing Organization Address [facility] Co de Phone Number [address] [place] [address] * Creatine kinase (CK), total (08/28/2024 7:12 AM DRUM SANDER SETTER) Pathologist [facility] CK 56 30 - 200 Units/L Comment:Testing performed by : [address] [address] Blood 08/28/2024 7:12 AM DRUM SANDER SETTER 08/28/2024 7:25 AM DRUM SANDER SETTER Olivier Bhagat MD LAB BLOOD ORDERABLES Final Re sult Performing Organization Address [facility] Co de Phone Number [address] [address] * (ABNORMAL) Basic metabolic panel (08/28/2024 7:12 AM DRUM SANDER SETTER) Pathologist [facility] Sodium 138 135 - 145 mmol/L Comment:Testing performed by : [address] [address] Potassium, pl 3.0(L) 3.3 - 4.9 mmol/L FREDERICK Comment:Testing performed by : [address] [address] Chloride 103 97 - 110 mmol/L FREDERICK Comment:Testing performed by : [address] [address] CO2 21(L) 22 - 32 mmol/L FREDERICK VALENCIA Comment:Testing performed by : [address] [address] Anion gap 14 2 - 15 mmol/L FREDERICK VALENCIA Comment:Testing performed by : [address] [address] BUN 7 6 - 25 mg/dL FREDERICK VALENCIA Comment:Testing performed by : [address] [address] Creatinine 0.80 0.60 - 1.10 mg/dL FREDERICK VALENCIA Comment:Testing performed by : [address] [address] Glucose 202(H) 70 - 199 mg/dL FREDERICK VALENCIA Comment: Interpretive Data Fasting glucose >/= 126 mg/dl is diagnostic for diabetes. Fasting is defined as no caloric intake for at least 8 hours. Fasting glucose between 100 mg/dl to 125 mg/dl is diagnostic of prediabetes. In a patient with classic symptoms of hyperglycemia or hyperglycemic crisis, a random glucose >/= 200 mg/dl is diagnostic for diabetes. In the absence of unequivocal hyperglycemia, results should be confirmed by repeat testing. The classification and Diagnosis of Diabetes Diabetes Care 2021; 46: S19-S40. Current interpretive data was last revised 2022. Testing performed by: [address] [address] Calcium 9.4 8.5 - 10.3 mg/dL FREDERICK Comment:Testing performed by : [address] [address] Blood 08/28/2024 7:12 AM DRUM SANDER SETTER 08/28/2024 7:25 AM DRUM SANDER SETTER Juno Hernandez MD LAB BLOOD ORDERABLES Final Result FREDERICK VALENCIA [address] [facility] Department of [place] [address] * (ABNORMAL) POCT glucose (08/28/2024 6:08 AM DRUM SANDER SETTER) [facility] Glucose, POC 216(H) 70 - 199 mg/dL Comment:Testing performed by : [address] [address] Glucose comment 1 Use This Result FREDERICK VALENCIA Comment:Testing performed by : [address] [address] Glucose comment 2 RN/MD Notified FREDERICK VALENCIA Comment:Testing performed by : [facility], [address] [place] [address]., [address] Blood 08/28/2024 6:08 AM DRUM SANDER SETTER 08/28/2024 6:08 AM DRUM SANDER SETTER Olivier Bhagat MD LAB POCT ORDERABLES - DEVICE Final Result Performing Organization Address [facility] de Phone Number FREDERICK [address] [facility] Department of [place] [address] * CT Body Outside Reference (08/27/2024 12:00 AM DRUM SANDER SETTER) Narrative [id number] - 10/01/2024 8:35 AM DRUM SANDER SETTER This order has been auto-finalized and does not contain a result. us Provider Transcribed Order IMG CT PROCEDURES Fin al Result Performing Organization Address [facility] de Phone Number [email or web address] * XR Outside Reference (08/27/2024 12:00 AM DRUM SANDER SETTER) Narrative [id number] - 10/01/2024 8:33 AM DRUM SANDER SETTER This order has been auto-finalized and does not contain a result. us Provider Transcribed Order IMG XR PROCEDURES Fin al Result Performing Organization Address [facility] de Phone Number [email or web address] * (ABNORMAL) Hemoglobin A1c (07/23/2024 9:07 AM DRUM SANDER SETTER) Hgb A1C 9.8(H) 4.0 - 5.6 % Comment:Testing performed by : [facility], [address] [place] [address]., [address] Estimated Average Glucose 235 mg/dL FREDERICK VALENCIA Comment: The ADA recommends reporting an estimated Average Glucose (eAG) with all Hemoglobin A1c results using the equation derived from a study of 507 normal and diabetic adults. Minority populations were underrepresented and children were not included. (Diabetes Care 31:5780-2246, 2008). The eAG is not equivalent to a fasting glucose. Testing performed by: [facility], [address] [place] [address]., [address] Blood 07/23/2024 9:07 AM DRUM SANDER SETTER 07/23/2024 9:50 AM DRUM SANDER SETTER us Juliano Chavarria MD LAB BLOOD ORDERABLES Final Result FREDERICK [address] [facility] Department of [place] [address] from Last 3 Months or Most Recently Relevant to Health Maintenance Insurance [employer] MED[employer]ARE [employer]UTIONS Advance Directives For more information, please contact: [phone] * Full Code (Latest Code Status on File) Date Activated Date Inactivated Comments 08/28/2024 7:07 AM 09/02/2024 6:00 PM * Full Code Date Activated Date Inactivated Comments 07/22/2024 3:20 AM 07/25/2024 3:36 PM Care Teams Shear Grinder Operator Helper Relationship Specialty Start Date End Date Sam Delgado MD PCP - General 05/15/08
--- OUTSIDE RECORDS SUMMARY | 2024-11-20 16:30 | XMS_ITS | Clinical Summary ---
Author Organization [facility] Address [address] [place] [address] Care Team Providers Care Byproducts Operator Name Role Phone Sam Delgado MD Primary Care Provider + [phone] Allergies Active Allergy Reactions Criticality Noted Date Comments Adhesive Tape-Silicones Rash Medium Penicillins Nausea & Vomiting Low Gbtzvfp-Tyv-Cce Reductase Inhibitors Hives Medium Medications buPROPion XL [...] 07/22/2024 Hypothyroidism 01/18/2014 Overview (12/09/2016): HYPOTHYROIDISM NOS Encounters Date Type Department Care Team Description 10/29/2024 1:00 PM TRAFFIC COORDINATOR - 10/29/2024 7:55 PM [facility] Emergency [facility] Emergency Department [address] [place] [address] Fran Swan MD Acute diverticulitis (Primary Dx); Hyperglycemia; Nausea and vomiting, unspecified vomiting type; Abdominal pain Discharge Disposition: Discharge to home or self care 08/28/2024 5:34 AM TRAFFIC COORDINATOR - 09/02/2024 2:00 PM TRAFFIC COORDINATOR Hospital Encounter [place] [id number] Med [address] [place] [address] Olivier Bhagat MD Telemaque, Juno Sequeira MD Sepsis due to anaerobic bacteria (HCC) (Primary Dx); Abdominal pain; Acute serous otitis media, recurrence not specified, unspecified laterality Discharge Disposition: Discharge to home or self care 08/27/2024 - 08/27/2024 11:59 PM TRAFFIC COORDINATOR Hospital Encounter [facility] Outside Images [address] [place] [address] Discharge Disposition: Discharge to home or self care 08/27/2024 - 08/27/2024 11:59 PM TRAFFIC COORDINATOR Hospital Encounter [facility] Outside Images [address] [place] [address] Discharge Disposition: Discharge to home or self care from Last 3 Months Surgical History Surgery Date Site/Laterality Comments CARPAL TUNNEL RELEASE 1998 Carpal tunnel release TOTAL ABDOMINAL HYSTERECTOMY W/ BILATERAL SALPINGOOPHORECTOMY 1980 Hysterectomy, total abdominal, BSO Medical History Medical History Date Comments Calculus of kidney kidney stones Hx Other Medical 2004 neck surgery Hx Other Medical diverticulitis Disorder of thyroid Thyroid dise ase Gastroesophageal reflux disease GERD Hyperlipidemia Hyperlipidemia Diabetes mellitus (HCC) Family History Medical History Relation Name Comments Diabetes type II Other Family hist ory of Diabetes -Type II; Hypertension Other Family history of Hypertension; Relation Name Status Comments Other Social History Tobacco Use Types Packs/Day Years Used Date Smoking Tobacco: Never Tobacco Cessation:Counseling Given: Not Answered Alcohol Use Standard Drinks/Week Comments No 0 (1 standard drink = 0.6 oz pur e alcohol) [facility] Utilities Answer Date Recorded In the past 12 months has th e electric, gas, oil, or water company threatened to shut off services in your [...] often do you attend chur ch or jew services? Never 08/29/2024 Do you belong to any clubs o r organizations such as buddhism groups, unions, fraternal or athletic groups, or [...] any time in the past 12 m [facility], were you homeless or living in a custodial (including now)? No 08/29/2024 Personal Safety Answer Date Recorded Have you ever been in or are you currently in a harmful physical or emotional relationship or is someone making you feel afraid or unsafe? Denies 10/29/2024 Comments No Sex and Gender Information Value Date Recorded Sex Assigned at Not on file Legal Sex Female 12:42 AM TRAFFIC COORDINATOR Gender Identity Not on file Sexual Orientation Not on file Obstetrics History Last Filed Vital Signs Vital Sign Reading Time Taken Comments Blood Pressure 141/83 10/29/2024 6:15 PM TRAFFIC COORDINATOR Pulse 98 10/29/2024 6:15 PM TRAFFIC COORDINATOR Temperature 36.4 C (97.6 F) 10/29/2024 12:12 PM TRAFFIC COORDINATOR Respiratory Rate 17 10/29/2024 6:15 PM TRAFFIC COORDINATOR Oxygen Saturation 99% 10/29/2024 6:15 PM TRAFFIC COORDINATOR Inhaled Oxygen Concentration - - Weight 90.6 kg (199 lb 11.2 oz) 08/28/2024 6:04 AM TRAFFIC COORDINATOR Height 152.4 cm (5') 08/28/2024 6:04 AM TRAFFIC COORDINATOR Body Mass Index 39 08/28/2024 6:04 AM TRAFFIC COORDINATOR Plan of Treatment Health Maintenance Due Date Last Done Comments Albumin Creatinine Ratio, Urine 1955 Breast Cancer Screening-Mammogram 1955 Colon Cancer Screening-Colonoscopy 1955 Depression Screening 1955 Hepatitis C Screening 1955 Osteoporosis Screening-Bone Density Scan 1955 Dilated Eye Exam 1955 Foot Exam 1955 Lipid Panel 1955 DTaP/Tdap/Td Vaccine (1 - Tdap) 1966 Hepatitis B Screening 1973 Pneumococcal vaccine 65+ (1 of 2 - PCV) 1974 Zoster Vaccine (1 of 2) 2005 Well Visit 65+ 2020 Covid-19 Vaccine (5 - 2023-2 5 season) 2024 09/14/2022, 09/14/2021, 04/27/2021, Additional history exists Influenza Vaccine (#1) 2024 09/14/2021 Hemoglobin A1C 01/20/2025 07/23/2024 Fall Risk Assessment 09/02/2025 09/02/2024 eGFR 10/29/2025 10/29/2024, 022 01/2025, 09/02/2024, Additional history exists Procedures Procedure Name Priority Date/Time Associated Diagnosis Comments POCT GLUCOSE DEVICE Routine 10/29/2024 7 :07 PM TRAFFIC COORDINATOR POCT GLUCOSE DEVICE Routine 10/29/2024 5 :[address] ABDOMEN PELVIS W CONTRAST ED 10/29/2024 4:42 PM TRAFFIC COORDINATOR EGFR STAT 10/29/2024 4:31 PM TRAFFIC COORDINATOR BETA-HYDROXYBUTYRATE Routine 10/29/2024 4:31 PM TRAFFIC COORDINATOR BLOOD GAS, VENOUS Routine 10/29/2024 4:3 1 PM TRAFFIC COORDINATOR COMPREHENSIVE METABOLIC PANEL STAT 10/29/2024 4:31 PM TRAFFIC COORDINATOR SEPSIS LACTATE WITH REFLEX Timed 10/29/2024 4:31 PM TRAFFIC COORDINATOR POCT GLUCOSE DEVICE Routine 10/29/2024 4 :27 PM TRAFFIC COORDINATOR HI CRITICAL CARE ILL/INJURED PATIENT INIT 30-74 MIN Routine 10/29/2024 3:59 PM TRAFFIC COORDINATOR TROPONIN T HIGH-SENSITIVITY STAT 10/29/2024 3:29 PM TRAFFIC COORDINATOR TROPONIN T HIGH-SENSITIVITY 2-HOUR Timed 10/29/2024 3:29 PM TRAFFIC COORDINATOR LIPASE STAT 10/29/2024 3:29 PM TRAFFIC COORDINATOR POCT GLUCOSE DEVICE Routine 10/29/2024 3 :28 PM TRAFFIC COORDINATOR EGFR STAT 10/29/2024 1:31 PM TRAFFIC COORDINATOR DIFFERENTIAL AUTO STAT 10/29/2024 1:3 1 PM TRAFFIC COORDINATOR SEPSIS LACTATE WITH REFLEX STAT 10/29/2024 1:31 PM TRAFFIC COORDINATOR COMPREHENSIVE METABOLIC PANEL STAT 10/29/2024 1:31 PM TRAFFIC COORDINATOR CBC WITH AUTO DIFFERENTIAL STAT 10/29/2024 1:31 PM TRAFFIC COORDINATOR RESPIRATORY PATHOGEN PANEL STAT 10/29/2024 1:31 PM TRAFFIC COORDINATOR XR CHEST 1 VIEW ED 10/29/2024 1:29 PM TRAFFIC COORDINATOR ECG 12-LEAD Routine 10/29/2024 12:18 PM TRAFFIC COORDINATOR POCT GLUCOSE DEVICE Routine 10/29/2024 1 2:13 PM TRAFFIC COORDINATOR POCT GLUCOSE DEVICE Routine 09/02/2024 1 1:26 AM TRAFFIC COORDINATOR POCT GLUCOSE DEVICE Routine 09/02/2024 7 :49 AM TRAFFIC COORDINATOR EGFR Routine 09/02/2024 5:08 AM TRAFFIC COORDINATOR BASIC METABOLIC PANEL Routine 09/02/2024 5:08 AM TRAFFIC COORDINATOR POCT GLUCOSE DEVICE Routine 09/01/2024 8 :17 PM TRAFFIC COORDINATOR POCT GLUCOSE DEVICE Routine 09/01/2024 4 :28 PM TRAFFIC COORDINATOR POCT GLUCOSE DEVICE Routine 09/01/2024 1 2:25 PM TRAFFIC COORDINATOR POCT GLUCOSE DEVICE Routine 09/01/2024 7 :37 AM TRAFFIC COORDINATOR EGFR Routine 09/01/2024 4:44 AM TRAFFIC COORDINATOR BASIC METABOLIC PANEL Routine 09/01/2024 4:44 AM TRAFFIC COORDINATOR POCT GLUCOSE DEVICE Routine 08/31/2024 9 :55 PM TRAFFIC COORDINATOR POCT GLUCOSE DEVICE Routine 08/31/2024 5 :24 PM TRAFFIC COORDINATOR VANCOMYCIN LEVEL TROUGH Timed 08/31/2024 5:18 PM TRAFFIC COORDINATOR POCT GLUCOSE DEVICE Routine 08/31/2024 1 2:41 PM TRAFFIC COORDINATOR XR CHEST 1 VIEW IP Routine 08/31/2024 11:01 AM TRAFFIC COORDINATOR POCT GLUCOSE DEVICE Routine 08/31/2024 7 :46 AM TRAFFIC COORDINATOR EGFR Routine 08/31/2024 4:09 AM TRAFFIC COORDINATOR BASIC METABOLIC PANEL Routine 08/31/2024 4:09 AM TRAFFIC COORDINATOR POCT GLUCOSE DEVICE Routine 08/30/2024 8 :28 PM TRAFFIC COORDINATOR POCT GLUCOSE DEVICE Routine 08/30/2024 3 :58 PM TRAFFIC COORDINATOR POCT GLUCOSE DEVICE Routine 08/30/2024 1 1:51 AM TRAFFIC COORDINATOR POCT GLUCOSE DEVICE Routine 08/30/2024 7 :34 AM TRAFFIC COORDINATOR EGFR Routine 08/30/2024 4:19 AM TRAFFIC COORDINATOR BASIC METABOLIC PANEL Routine 08/30/2024 4:19 AM TRAFFIC COORDINATOR THYROID FUNCTION CASCADE Routine 08/29/2024 11:30 PM TRAFFIC COORDINATOR TRICHOMONAS VAGINALIS PCR Routine 08/29/2024 10:09 PM TRAFFIC COORDINATOR N. GONORRHOEAE/C. TRACHOMATIS AMPLIFICATION Routine 08/29/2024 10:09 PM TRAFFIC COORDINATOR POCT GLUCOSE DEVICE Routine 08/29/2024 8 :50 PM TRAFFIC COORDINATOR POCT GLUCOSE DEVICE Routine 08/29/2024 6 :15 PM TRAFFIC COORDINATOR VAGINITIS PANEL Routine 08/29/2024 5:16 PM TRAFFIC COORDINATOR POCT GLUCOSE DEVICE Routine 08/29/2024 1 2:47 PM TRAFFIC COORDINATOR POCT GLUCOSE DEVICE Routine 08/29/2024 8 :29 AM TRAFFIC COORDINATOR ECG 12-LEAD Routine 08/29/2024 8:13 AM TRAFFIC COORDINATOR EGFR Routine 08/29/2024 1:21 AM TRAFFIC COORDINATOR COMPREHENSIVE METABOLIC PANEL Routine 08/29/2024 1:21 AM TRAFFIC COORDINATOR POCT GLUCOSE DEVICE Routine 08/28/2024 8 :30 PM TRAFFIC COORDINATOR POCT GLUCOSE DEVICE Routine 08/28/2024 5 :12 PM TRAFFIC COORDINATOR POCT GLUCOSE DEVICE Routine 08/28/2024 1 1:[address] ABDOMEN PELVIS W CONTRAST IP Routine 08/28/2024 11:27 AM TRAFFIC COORDINATOR POCT GLUCOSE DEVICE Routine 08/28/2024 8 :17 AM TRAFFIC COORDINATOR EGFR Routine 08/28/2024 7:12 AM TRAFFIC COORDINATOR BASIC METABOLIC PANEL Routine 08/28/2024 7:12 AM TRAFFIC COORDINATOR DIFFERENTIAL AUTO Routine 08/28/2024 7:1 2 AM TRAFFIC COORDINATOR LACTATE STAT 08/28/2024 7:12 AM TRAFFIC COORDINATOR CBC WITH AUTO DIFFERENTIAL Routine 08/28/2024 7:12 AM TRAFFIC COORDINATOR CREATINE KINASE (CK), TOTAL Routine 08/28/2024 7:12 AM TRAFFIC COORDINATOR POCT GLUCOSE DEVICE Routine 08/28/2024 6 :[address] BODY OUTSIDE REFERENCE Routine 08/27/2024 12:00 AM TRAFFIC COORDINATOR XR TRANSFER OF OUTSIDE FILMS Routine 08/27/2024 12:00 AM TRAFFIC COORDINATOR HEMOGLOBIN A1C Routine 07/23/2024 9:07 AM TRAFFIC COORDINATOR from Last 3 Months or Most Recently Relevant to Health Maintenance Results * POCT glucose (10/29/2024 7:07 PM TRAFFIC COORDINATOR) Glucose, POC 168 70 - 199 mg/dL Blood 10/29/2024 7:07 PM TRAFFIC COORDINATOR 10/29/2024 7:07 PM TRAFFIC COORDINATOR Fran Swan MD LAB POCT ORDERABLES - DEANDRE CE Final Result Performing Organization Address [facility] Co de Phone Number FR[place] [phone] [address] [facility] [employer] [place] [address] * (ABNORMAL) POCT glucose (10/29/2024 5:53 PM TRAFFIC COORDINATOR) Glucose, POC 257(H) 70 - 199 mg/dL Blood 10/29/2024 5:53 PM TRAFFIC COORDINATOR 10/29/2024 5:53 PM TRAFFIC COORDINATOR Fran Swan MD LAB POCT ORDERABLES - DEANDRE CE Final Result Performing Organization Address [facility] Co de Phone Number FREDERICK JOINER [phone] [address] [facility] [address] [place] [address] * CT Abdomen Pelvis W Contrast (10/29/2024 4:42 PM TRAFFIC COORDINATOR) Anatomical Region Laterality Modality Body N/A Computed Tomogra phy 10/29/2024 5:25 PM TRAFFIC COORDINATOR Impressions 10/29/2024 5:25 PM TRAFFIC COORDINATOR MILD ACUTE SIGMOID DIVERTICULITIS Electronically signed by: Richard Alexis M.D. Narrative 10/29/2024 5:25 PM TRAFFIC COORDINATOR EXAMINATION: CT ABDOMEN PELVIS W CONTRAST DATE: [...] Sepsis Lactate w/ Reflex (10/29/2024 4:31 PM TRAFFIC COORDINATOR) Sepsis Lactate 1.7 0.7 - 2.0 mmol/L Blood 10/29/2024 4:31 PM TRAFFIC COORDINATOR 10/29/2024 4:35 PM TRAFFIC COORDINATOR Fran Swan MD LAB BLOOD ORDERABLES Final Result [facility] [id number] [address] [facility] [place] [address] * eGFR (10/29/2024 4:31 PM TRAFFIC COORDINATOR) eGFR 74 >=60 mL/min/1. 73 m2 Comment: [...] last reviewed 2021. Blood 10/29/2024 4:31 PM TRAFFIC COORDINATOR 10/29/2024 4:35 PM TRAFFIC COORDINATOR Fran Swan MD LAB BLOOD ORDERABLES Final Result FR[place]ICK JOINER [address] [address] [employer] [place], [place] [id number] * (ABNORMAL) Beta-hydroxybutyrate (10/29/2024 4:31 PM TRAFFIC COORDINATOR) Beta-Hydroxybut yrate 1.2(H) <=0.5 mmol/L Blood 10/29/2024 4:31 PM TRAFFIC COORDINATOR 10/29/2024 4:35 PM TRAFFIC COORDINATOR Fran Swan MD LAB BLOOD ORDERABLES Final Result FR[place]ICK JOINER [id number] [address] Department [employer] [place], [place] [id number] * (ABNORMAL) Blood gas, venous (10/29/2024 4:31 PM TRAFFIC COORDINATOR) pH, Venous 7.42 7.32 - 7.43 PCO2, Venous 37(L) 40 - 50 mmHg FREDERICK JOINER PO2, Venous 43 mmHg C[facility]ER CH Comment: Interpretive Data No Reference Range Established Current Interpretive Data was last revised on 2017. HCO3 Venous, Calculated 24 20 - 30 mmol/L CERNER CH BE, venous -1 mmol/L [facility] CH Comment: Interpretive Data No Reference Range Established Current Interpretive Data was last revised on 2017. Blood 10/29/2024 4:31 PM TRAFFIC COORDINATOR 10/29/2024 4:35 PM TRAFFIC COORDINATOR us Fran Swan MD LAB [place] [address] [address] Department [place] [address] * (ABNORMAL) Comprehensive metabolic panel (10/29/2024 4:31 PM TRAFFIC COORDINATOR) Sodium 135 135 - 145 mmol/L Potassium, pl 4.0 3.3 - 4.9 mmol/L CERNER CH Chloride 100 97 - 110 mmol/L [facility] CH CO2 21(L) 22 - 32 mmol/L [facility] CH Anion gap 14 2 - 15 mmol/L [facility] CH BUN 19 6 - 25 mg/dL [facility] CH Creatinine 0.85 0.60 - 1.10 mg/dL [facility] CH Glucose 248(H) 70 - 199 mg/dL CERNER [...] Units/L [facility]ERNER CH Blood 10/29/2024 4:31 PM TRAFFIC COORDINATOR 10/29/2024 4:35 PM TRAFFIC COORDINATOR Fran Swan MD LAB BLOOD ORDERABLES Final Result Performing Organization Address [facility] Co de Phone Number FREDERICK JOINER [phone] [address] [place] [address] * (ABNORMAL) POCT glucose (10/29/2024 4:27 PM TRAFFIC COORDINATOR) Glucose, POC 227(H) 70 - 199 mg/dL Blood 10/29/2024 4:27 PM TRAFFIC COORDINATOR 10/29/2024 4:27 PM TRAFFIC COORDINATOR Fran Swan MD LAB POCT ORDERABLES - DEANDRE CE Final Result Performing Organization Address [facility] Co de Phone Number [facility] [phone] [address] [facility] [address] [place] [address] * HI CRITICAL CARE ILL/INJURED PATIENT INIT 30-74 MIN (10/29/2024 3:59 PM TRAFFIC COORDINATOR) Narrative Fran Swan MD - 10/29/2024 3:59 PM TRAFFIC COORDINATOR Fran Swan MD 11/04/2024 4:49 AM Critical [...] spent time documenting in the medical record. Fran Swan MD IN CLINIC/BEDSIDE ORDERABL ES Final Result * Troponin T high-sensitivity 2-hour (10/29/2024 3:29 PM TRAFFIC COORDINATOR) Trop T hs See Comment <=14 Comment: Interpretive Data For further hscTnT resources including the diagnostic algorithm and an aid in interpretation, copy and paste this link: https://nrl.[employer].org/show/hsTrop Current Interpretive Data last revised 2020. Trop T hs interp See Comment FREDERICK JOINER Blood 10/29/2024 3:29 PM TRAFFIC COORDINATOR 10/29/2024 3:31 PM TRAFFIC COORDINATOR Result [facility] Fran Swan MD LAB BLOOD ORDERABLES Final Result FR[place] [address] [facility] Department [place] [address] * Troponin T high-sensitivity (10/29/2024 3:29 PM TRAFFIC COORDINATOR) Trop T hs 13 <=14 ng/L Comment: Interpretive Data For further hscTnT resources including the diagnostic algorithm and an aid in interpretation, copy and paste this link: https://nrl.[employer].org/show/hsTrop Current Interpretive Data last revised 2020. Blood 10/29/2024 3:29 PM TRAFFIC COORDINATOR 10/29/2024 4:56 PM TRAFFIC COORDINATOR Fran Swan MD LAB BLOOD ORDERABLES Final Result FREDERICK JOINER [address] [address] [facility] [address] [place] [address] * Lipase (10/29/2024 3:29 PM TRAFFIC COORDINATOR) [facility] Lipase 20 10 - 99 Units/L Blood Venous blood specimen / Unknown 10/29/2024 3:29 PM TRAFFIC COORDINATOR 10/29/2024 4:55 PM TRAFFIC COORDINATOR Fran Swan MD LAB BLOOD ORDERABLES Final Result Performing Organization Address [facility] Co de Phone Number FREDERICK JOINER [phone] [address] [facility] [address] [place] [address] * (ABNORMAL) POCT glucose (10/29/2024 3:28 PM TRAFFIC COORDINATOR) [facility] Glucose, POC 288(H) 70 - 199 mg/dL Blood 10/29/2024 3:28 PM TRAFFIC COORDINATOR 10/29/2024 3:28 PM TRAFFIC COORDINATOR Fran Swna MD LAB POCT ORDERABLES - DEANDRE CE Final Result Performing Organization Address [facility] Co de Phone Number FREDERICK JOINER [phone] [address] [facility] [address] [place] [address] * (ABNORMAL) Sepsis Lactate w/ Reflex (10/29/2024 1:31 PM TRAFFIC COORDINATOR) [facility] Sepsis Lactate 2.9(H) 0.7 - 2.0 mmol/L Blood 10/29/2024 1:31 PM TRAFFIC COORDINATOR 10/29/2024 1:41 PM TRAFFIC COORDINATOR Fran Swan MD LAB BLOOD ORDERABLES Final Result Performing Organization Address City/[facility]/ZIP Co de Phone Number FR[place]ERICK [phone] [address] [facility] [address] [place] [address] * eGFR (10/29/2024 1:31 PM TRAFFIC COORDINATOR) eGFR 67 >=60 mL/min/1. 73 m2 Comment: [...] last reviewed 2021. Blood 10/29/2024 1:31 PM TRAFFIC COORDINATOR 10/29/2024 1:43 PM TRAFFIC COORDINATOR us Fran Swan MD LAB BLOOD ORDERABLES Final Result [facility] [address] [address] Department [place] [address] * (ABNORMAL) Differential, auto (10/29/2024 1:31 PM TRAFFIC COORDINATOR) Pathologist [facility] Neutrophil abs 5.7 1.5 - 6.5 K/cumm Imm gran abs 0.2(H) 0.0 - 0.1 K/cumm [facility] Lymphocyte abs 3.4(H) 0.8 - 3.3 K/cumm [facility] Monocyte abs 1.0(H) 0.2 - 0.8 K/cumm [facility] Eosinophil abs 0.1 0.0 - 0.5 K/cumm [facility] Basophil abs 0.1 0.0 - 0.1 K/cumm [facility] Neutrophil pct 54.8 % [facility] Comment: Interpretive Data Percent cell count reference ranges are not reported, since discordance with absolute values may lead to misinterpretation of CBC data. Current Interpretive Data was last revised on 2017. Imm gran pct 1.5 % CERNER Comment: Interpretive Data Percent cell count reference ranges are not reported, since discordance with absolute values may lead to misinterpretation of CBC data. Current Interpretive Data was last revised on 2017. Lymphocyte pct 32.5 % [facility] Comment: Interpretive Data Percent cell count reference ranges are not reported, since discordance with absolute values may lead to misinterpretation of CBC data. Current Interpretive Data was last revised on 2017. Monocyte pct 9.8 % [facility] Comment: Interpretive Data Percent cell count reference ranges are not reported, since discordance with absolute values may lead to misinterpretation of CBC data. Current Interpretive Data was last revised on 2017. Eosinophil pct 0.7 % [facility] Comment: Interpretive Data Percent cell count reference ranges are not reported, since discordance with absolute values may lead to misinterpretation of CBC data. Current Interpretive Data was last revised on 2017. Basophil pct 0.7 % [facility]ER Comment: Interpretive Data Percent cell count reference ranges are not reported, since discordance with absolute values may lead to misinterpretation of CBC data. Current Interpretive Data was last revised on 2017. Blood 10/29/2024 1:31 PM TRAFFIC COORDINATOR 10/29/2024 1:42 PM TRAFFIC COORDINATOR Fran Swan MD LAB BLOOD ORDERABLES Final Result Performing Organization Address City/State/[facility] Co de Phone Number [facility] [phone] [address] Department [place] [address] * Respiratory pathogen panel Nasopharyngeal (10/29/2024 1:31 PM TRAFFIC COORDINATOR) Pathologist [facility] Influenza A RNA Not Detected Not Detected Influenza B RNA Not Detected Not Detected [facility] RSV RNA Not Detected Not Detected [facility] COVID-19 RNA Not Detected Not Detected [facility] Coronavirus 229E RNA Not Detected Not Detected [facility] Coronavirus HKU1 RNA Not Detected Not Detected [facility] Coronavirus NL63 RNA Not Detected Not Detected [facility] Coronavirus OC43 RNA Not Detected Not Detected [facility] Adenovirus DNA Not Detected Not Detected [facility] Metapneumovirus RNA Not Detected Not Detected [facility] Rhinovirus/Enterov irus RNA Not Detected Not Detected [facility] Parainfluenza 1 RNA Not Detected Not Detected [facility] Parainfluenza 2 RNA Not Detected Not Detected [facility] Parainfluenza 3 RNA Not Detected Not Detected [facility] Parainfluenza 4 RNA Not Detected Not Detected [facility] B. pertussis DNA Not Detected Not Detected [facility] B. parapertussis DNA Not Detected Not Detected [facility] C. pneumoniae DNA Not Detected Not Detected [facility] M. pneumoniae DNA Not Detected Not Detected [facility] Comment: Interpretive Data [employer] FilmArray Respiratory Panel (RP2.1) assay is a [...] assay has FDA clearance for testing of RETAIL SALES VITAMIN CONSULTANT swabs. The performance characteristics of this assay have been determined by [facility]. Current interpretive data was last revised on 2021. Nasopharyngeal 10/29/2024 1: 31 PM TRAFFIC COORDINATOR 10/29/2024 1:42 PM TRAFFIC COORDINATOR Narrative [facility] - 10/29/2024 2:37 PM TRAFFIC COORDINATOR Is the Patient experiencing symptoms consistent with COVID?->Yes Surveillance testing for transplant patient?->No Fran Swan MD LAB MICROBIOLOGY - GENERAL ORDERABLES Final Result [facility] [id number] [address] Department [place] [address] * (ABNORMAL) CBC with auto differential (10/29/2024 1:31 PM TRAFFIC COORDINATOR) WBC 10.5(H) 3.8 - 9.9 K/cumm Hgb 16.0(H) 11.9 - 15.5 g/dL [facility]ERNER Hct 50.4(H) 35.6 - 45.5 % [facility] Plt 305 150 - 400 K/cumm [facility] MPV 12.0 9.1 - 12.3 fL [facility] RBC 5.99(H) 3.90 - 5.20 M/cumm [facility] MCV 84.1 81.3 - 96.4 fL [facility] MCH 26.7(L) 27.1 - 33.3 pg CERNER MCHC 31.7(L) 32.3 - 35.7 g/dL CERNER RDW CV 14.5 11.1 - 14.9 % [facility] CH RDW SD 44.1 35.7 - 48.1 fL [facility] NRBC abs 0.00 0.00 - 0.01 K/cumm [facility] Blood 10/29/2024 1:31 PM TRAFFIC COORDINATOR 10/29/2024 1:42 PM TRAFFIC COORDINATOR Fran Swan MD LAB [place] [address] [address] Department [place] [address] * (ABNORMAL) Comprehensive metabolic panel (10/29/2024 1:31 PM TRAFFIC COORDINATOR) Sodium 129(L) 135 - 145 mmol/L Potassium, [...] Units/L [facility] Blood 10/29/2024 1:31 PM TRAFFIC COORDINATOR 10/29/2024 1:43 PM TRAFFIC COORDINATOR us Fran Swan MD LAB BLOOD ORDERABLES Final Result FR[place]ERICK JOINER [address] [address] Department [place] [address] * XR Chest 1 Vw Portable (if patient condition/safety warrant portable) (10/29/2024 1:29 PM TRAFFIC COORDINATOR) Anatomical Region Laterality Modality Body, Chest N/A Computed Radiogr aphy 10/29/2024 2:03 PM TRAFFIC COORDINATOR Impressions 10/29/2024 2:03 PM TRAFFIC COORDINATOR No active disease. Electronically signed by: Stu Mejia M.D. Narrative 10/29/2024 2:03 PM TRAFFIC COORDINATOR EXAMINATION: XR CHEST 1 VIEW DATE: 10/29/2024 [...] disease. Electronically signed by: Stu Mejia M.D. us Fran Swan MD IMG XR PROCEDURES Final Re sult * ECG 12 lead (10/29/2024 12:18 PM TRAFFIC COORDINATOR) 10/29/2024 12:1 8 PM TRAFFIC COORDINATOR Narrative [facility] - 10/29/2024 12:58 PM TRAFFIC COORDINATOR Vent Rate: 118 bpm RR Interval: 507 msec HI Interval: 131 msec QRS Duration: 85 msec QT Interval: 313 msec QTC Interval: 383 msec P-R-T [place]: 35 - -47 - 69 degrees IMPRESSION: SINUS TACHYCARDIA LEFT AXIS DEVIATION [QRS AXIS < -30] POSSIBLE ANTERIOR MYOCARDIAL INFARCTION , OF INDETERMINATE AGE [30 ms Q WAVE IN V3/V4, OR R < 0.2 mV IN V4] ABNORMAL ECG Electronically Signed By: Rashaad Massey MD us Fran Swan MD ECG ORDERABLES Final Resu lt [facility] * (ABNORMAL) POCT glucose (10/29/2024 12:13 PM TRAFFIC COORDINATOR) Glucose, POC 313(H) 70 - 199 mg/dL Blood 10/29/2024 12:1 3 PM TRAFFIC COORDINATOR 10/29/2024 12:13 PM TRAFFIC COORDINATOR us Notinfile Unknown LAB POCT ORDERABLES - DEVICE F inal Result Performing Organization Address [facility]/ZIP Co de Phone Number FREDERICK [address] [facility] Department [place] [address] * (ABNORMAL) POCT glucose (09/02/2024 11:26 AM TRAFFIC COORDINATOR) Glucose, POC 291(H) 70 - 199 mg/dL Comment:Testing performed by : [address] [address] Blood 09/02/2024 11:2 6 AM TRAFFIC COORDINATOR 09/02/2024 11:26 AM TRAFFIC COORDINATOR us Juno Hernandez MD LAB POCT ORDERABLES - DEVICE Final Result Performing Organization Address City/[facility]/ZIP Co de Phone Number FREDERICK [address] [facility] Department [place] [address] * POCT glucose (09/02/2024 7:49 AM TRAFFIC COORDINATOR) Glucose, POC 147 70 - 199 mg/dL Comment:Testing performed by : [address] [address] Blood 09/02/2024 7:49 AM TRAFFIC COORDINATOR 09/02/2024 7:49 AM TRAFFIC COORDINATOR Juno Hernandez MD LAB POCT ORDERABLES - DEVICE Final Result Performing Organization Address [facility] Co de Phone Number FREDERICK [address] [place] [address] * eGFR (09/02/2024 5:08 AM TRAFFIC COORDINATOR) eGFR >90 >=60 mL/min/1. 73 m2 Comment: [...] was last reviewed 2021. Testing performed by: [address] [address] Blood 09/02/2024 5:08 AM TRAFFIC COORDINATOR 09/02/2024 6:15 AM TRAFFIC COORDINATOR Juno Hernandez MD LAB BLOOD ORDERABLES Final Result Performing Organization Address City/[facility]/ZIP Co de Phone Number FREDERICK [facility] [place] [address] * Basic metabolic panel (09/02/2024 5:08 AM TRAFFIC COORDINATOR) Sodium 139 135 - 145 mmol/L Comment:Testing performed by : [address] [address] Potassium, pl 3.5 3.3 - 4.9 mmol/L FREDERICK Comment:Testing performed by : [address] [address] Chloride 106 97 - 110 mmol/L FREDERICK Comment:Testing performed by : [address], [place]., [address] CO2 26 22 - 32 mmol/L FREDERICK Comment:Testing performed by : [address] [address] Anion gap 7 2 - 15 mmol/L FREDERICK Comment:Testing performed by : [address] [address] BUN 13 6 - 25 mg/dL FREDERICK Comment:Testing performed by : [address] [address] Creatinine 0.70 0.60 - 1.10 mg/dL FREDERICK Comment:Testing performed by : [address] [address] Glucose 154 70 - 199 mg/dL FREDERICK [...] was last revised 2022. Testing performed by: [address] [address] Calcium 8.9 8.5 - 10.3 mg/dL FREDERICK Comment:Testing performed by : [address] [address] Blood 09/02/2024 5:08 AM TRAFFIC COORDINATOR 09/02/2024 6:15 AM TRAFFIC COORDINATOR us Juno Hernandez MD LAB BLOOD ORDERABLES Final Result [facility] [id number] [place] [address] * POCT glucose (09/01/2024 8:17 PM TRAFFIC COORDINATOR) [facility] Glucose, POC 174 70 - 199 mg/dL Comment:Testing performed by : [address] [address] Glucose comment 1 Use This Result FREDERICK Comment:Testing performed by : [address] [address] Glucose comment 2 RN/MD Notified FREDERICK Comment:Testing performed by : [address] [address] Blood 09/01/2024 8:17 PM TRAFFIC COORDINATOR 09/01/2024 8:17 PM TRAFFIC COORDINATOR Juno Hernandez MD LAB POCT ORDERABLES - DEVICE Final Result Performing Organization Address [facility] de Phone Number [address] [address] * (ABNORMAL) POCT glucose (09/01/2024 4:28 PM TRAFFIC COORDINATOR) [facility] Glucose, POC 206(H) 70 - 199 mg/dL Comment:Testing performed by : [address] [address] Glucose comment 1 Use This Result FREDERICK Comment:Testing performed by : [address] [address] Blood 09/01/2024 4:28 PM TRAFFIC COORDINATOR 09/01/2024 4:28 PM TRAFFIC COORDINATOR us uJno Hernandez MD LAB POCT ORDERABLES - DEVICE Final Result Performing Organization Address City/[facility] Co de Phone Number [address] [address] * (ABNORMAL) POCT glucose (09/01/2024 12:25 PM TRAFFIC COORDINATOR) [facility] Glucose, POC 323(H) 70 - 199 mg/dL Comment:Testing performed by : [facility], [address] [place] [address]., [address] Glucose comment 1 RN/MD Notified FREDERICK VALENCIA Comment:Testing performed by : [address] [address] Blood 09/01/2024 12:2 5 PM TRAFFIC COORDINATOR 09/01/2024 12:25 PM TRAFFIC COORDINATOR Juno Hernandez MD LAB POCT ORDERABLES - DEVICE Final Result Performing Organization Address City/[facility] Co de Phone Number FREDERICK [address] [place] [address] * POCT glucose (09/01/2024 7:37 AM TRAFFIC COORDINATOR) [facility] Glucose, POC 121 70 - 199 mg/dL Comment:Testing performed by : [address] [address] Glucose comment 1 Use This Result FREDERICK VALENCIA Comment:Testing performed by : [address] [address] Blood 09/01/2024 7:37 AM TRAFFIC COORDINATOR 09/01/2024 7:37 AM TRAFFIC COORDINATOR Juno Hernandez MD LAB POCT ORDERABLES - DEVICE Final Result Performing Organization Address City/[facility] Co de Phone Number JULIAN[address] [place] [address] * eGFR (09/01/2024 4:44 AM TRAFFIC COORDINATOR) [facility] eGFR >90 >=60 mL/min/1. 73 m2 Comment: [...] was last reviewed 2021. Testing performed by: [address] [address] Blood 09/01/2024 4:44 AM TRAFFIC COORDINATOR 09/01/2024 5:18 AM TRAFFIC COORDINATOR us Juno Hernandez MD LAB BLOOD ORDERABLES Final Result FREDERICK [facility] Department [place] [address] * Basic metabolic panel (09/01/2024 4:44 AM TRAFFIC COORDINATOR) Sodium 140 135 - 145 mmol/L Comment:Testing performed by : [address] [address] Potassium, pl 3.7 3.3 - 4.9 mmol/L FREDERICK Comment:Testing performed by : [address] [address] Chloride 104 97 - 110 mmol/L FREDERICK Comment:Testing performed by : [address] [address] CO2 26 22 - 32 mmol/L FREDERICK Comment:Testing performed by : [address] [address] Anion gap 10 2 - 15 mmol/L FREDERICK Comment:Testing performed by : [address] [address] BUN 11 6 - 25 mg/dL FREDERICK Comment:Testing performed by : [address] [address] Creatinine 0.70 0.60 - 1.10 mg/dL FREDERICK VALENCIA Comment:Testing performed by : [address] [address] Glucose 126 70 - 199 mg/dL FREDERICK VALENCIA Comment: [...] was last revised 2022. Testing performed by: [address] [address] Calcium 9.2 8.5 - 10.3 mg/dL FREDERICK Comment:Testing performed by : [address] [address] Blood 09/01/2024 4:44 AM TRAFFIC COORDINATOR 09/01/2024 5:18 AM TRAFFIC COORDINATOR us Juno Hernandez MD LAB BLOOD ORDERABLES Final Result Performing Organization Address City/State/[facility] Co de Phone Number FREDERICK [address] [facility] Department of Laboratories [place], [place] [id number] * POCT glucose (08/31/2024 9:55 PM TRAFFIC COORDINATOR) [facility] Signature Glucose, POC 194 70 - 199 mg/dL Comment:Testing performed by : [address] [address] Glucose comment 1 Use This Result FREDERICK VALENCIA Comment:Testing performed by : [address] [address] Glucose comment 2 RN/MD Notified FREDERICK VALENCIA Comment:Testing performed by : [address] [address] Blood 08/31/2024 9:55 PM TRAFFIC COORDINATOR 08/31/2024 9:55 PM TRAFFIC COORDINATOR Juno Hernandez MD LAB POCT ORDERABLES - DEVICE Final Result Performing Organization Address [facility] Co de Phone Number FREDERICK [address] [place] [address] * (ABNORMAL) POCT glucose (08/31/2024 5:24 PM TRAFFIC COORDINATOR) Glucose, POC 221(H) 70 - 199 mg/dL Comment:Testing performed by : [address] [address] Blood 08/31/2024 5:24 PM TRAFFIC COORDINATOR 08/31/2024 5:24 PM TRAFFIC COORDINATOR Juno Hernandez MD LAB POCT ORDERABLES - DEVICE Final Result Performing Organization Address [facility] de Phone Number JULIAN[address] [place] [address] * Vancomycin level trough (08/31/2024 5:18 PM TRAFFIC COORDINATOR) Vancomycin trough 10.2 10.0 - 20.0 mcg/mL Comment:Testing performed by : [address] [address] Blood 08/31/2024 5:18 PM TRAFFIC COORDINATOR 08/31/2024 5:44 PM TRAFFIC COORDINATOR Olivier Bhagat MD LAB BLOOD ORDERABLES Final Re sult Performing Organization Address [facility] Co de Phone Number [address] [place] [address] * (ABNORMAL) POCT glucose (08/31/2024 12:41 PM TRAFFIC COORDINATOR) Glucose, POC 280(H) 70 - 199 mg/dL Comment:Testing performed by : [address] [address] Blood 08/31/2024 12:4 1 PM TRAFFIC COORDINATOR 08/31/2024 12:41 PM TRAFFIC COORDINATOR us Juno Hernandez MD LAB POCT ORDERABLES - DEVICE Final Result JULIANNER MH [address] [facility] Department [place] [address] * XR Chest 1 View (08/31/2024 11:01 AM TRAFFIC COORDINATOR) Anatomical Region Laterality Modality Body, Chest N/A Computed Radiogr aphy 08/31/2024 1:04 PM TRAFFIC COORDINATOR Narrative 08/31/2024 1:07 PM TRAFFIC COORDINATOR EXAM DESCRIPTION: XR CHEST 1 VIEW REASON [...] Joyce Jackson M.D. FT: FT Report ID: [id number] Reading Location: [id number] Procedure Note Joyce Tang MD - 08/31/2024 [...] Joyce Jackson M.D. FT: FT Report ID: [id number] Reading Location: [id number] Juno Hernandez MD IMG XR PROCEDURES Fi nal Result * POCT glucose (08/31/2024 7:46 AM TRAFFIC COORDINATOR) Glucose, POC 147 70 - 199 mg/dL Comment:Testing performed by : [facility], [address] [place] [address]., [address] Blood 08/31/2024 7:46 AM TRAFFIC COORDINATOR 08/31/2024 7:46 AM TRAFFIC COORDINATOR Juno Hernandez MD LAB POCT ORDERABLES - DEVICE Final Result [facility] [address] [facility] Department [place] [address] * eGFR (08/31/2024 4:09 AM TRAFFIC COORDINATOR) eGFR 69 >=60 mL/min/1. 73 m2 Comment: [...] was last reviewed 2021. Testing performed by: [address] [address] Blood 08/31/2024 4:0 9 AM TRAFFIC COORDINATOR 08/31/2024 4:18 AM TRAFFIC COORDINATOR Juno Hernandez MD LAB BLOOD ORDERABLES Final Result [facility] [address] [facility] Department [place] [address] * Basic metabolic panel (08/31/2024 4:09 AM TRAFFIC COORDINATOR) Sodium 141 135 - 145 mmol/L Comment:Testing performed by : [address] [address] Potassium, pl 3.6 3.3 - 4.9 mmol/L FREDERICK Comment:Testing performed by : [address] [address] Chloride 106 97 - 110 mmol/L FREDERICK Comment:Testing performed by : [address] [address] CO2 27 22 - 32 mmol/L FREDERICK Comment:Testing performed by : [address] [address] Anion gap 8 2 - 15 mmol/L FREDERICK Comment:Testing performed by : [address] [address] BUN 9 6 - 25 mg/dL FREDERICK Comment:Testing performed by : [address] [address] Creatinine 0.90 0.60 - 1.10 mg/dL FREDERICK Comment:Testing performed by : [address] [address] Glucose 177 70 - 199 mg/dL FREDERICK Comment: Interpretive [...] was last revised 2022. Testing performed by: [address] [address] Calcium 9.3 8.5 - 10.3 mg/dL FREDERICK VALENCIA Comment:Testing performed by : [address] [address] Blood 08/31/2024 4:09 AM TRAFFIC COORDINATOR 08/31/2024 4:18 AM TRAFFIC COORDINATOR Juno Hernandez MD LAB BLOOD ORDERABLES Final Result Performing Organization Address [facility] de Phone Number FREDERICK [address] [place] [address] * (ABNORMAL) POCT glucose (08/30/2024 8:28 PM TRAFFIC COORDINATOR) [facility] Glucose, POC 279(H) 70 - 199 mg/dL Comment:Testing performed by : [address] [address] Glucose comment 1 Use This Result FREDERICK VALENCIA Comment:Testing performed by : [address] [address] Glucose comment 2 RN/MD Notified FREDERICK Comment:Testing performed by : [address] [address] Blood 08/30/2024 8:28 PM TRAFFIC COORDINATOR 08/30/2024 8:28 PM TRAFFIC COORDINATOR Juno Hernandez MD LAB POCT ORDERABLES - DEVICE Final Result Performing Organization Address [facility] Co de Phone Number FREDERICK [address] [place] [address] * (ABNORMAL) POCT glucose (08/30/2024 3:58 PM TRAFFIC COORDINATOR) Glucose, POC 209(H) 70 - 199 mg/dL Comment:Testing performed by : [address] [address] Blood 08/30/2024 3:58 PM TRAFFIC COORDINATOR 08/30/2024 3:58 PM TRAFFIC COORDINATOR us Juno Hernandez MD LAB POCT ORDERABLES - DEVICE Final Result Performing Organization Address City/[facility] Co de Phone Number [address] [place] [address] * (ABNORMAL) POCT glucose (08/30/2024 11:51 AM TRAFFIC COORDINATOR) Glucose, POC 304(H) 70 - 199 mg/dL Comment:Testing performed by : [address] [address] Blood 08/30/2024 11:5 1 AM TRAFFIC COORDINATOR 08/30/2024 11:51 AM TRAFFIC COORDINATOR us Juno Hernandez MD LAB POCT ORDERABLES - DEVICE Final Result Performing Organization Address [facility] Co de Phone Number [address] [place] [address] * POCT glucose (08/30/2024 7:34 AM TRAFFIC COORDINATOR) Glucose, POC 141 70 - 199 mg/dL Comment:Testing performed by : [address] [address] Blood 08/30/2024 7:34 AM TRAFFIC COORDINATOR 08/30/2024 7:34 AM TRAFFIC COORDINATOR us Juno Hernandez MD LAB POCT ORDERABLES - DEVICE Final Result Performing Organization Address City/[facility]/ZIP Co de Phone Number [address] [place] [address] * eGFR (08/30/2024 4:19 AM TRAFFIC COORDINATOR) eGFR 69 >=60 mL/min/1. 73 m2 Comment: [...] was last reviewed 2021. Testing performed by: [address] [address] Blood 08/30/2024 4:19 AM TRAFFIC COORDINATOR 08/30/2024 4:28 AM TRAFFIC COORDINATOR us Juno Hernandez MD LAB BLOOD ORDERABLES Final Result Performing Organization Address City/State/[facility] Co de Phone Number FREDERICK [address] [facility] Department [place] [address] * Basic metabolic panel (08/30/2024 4:19 AM TRAFFIC COORDINATOR) Sodium 142 135 - 145 mmol/L Comment:Testing performed by : [address] [address] Potassium, pl 3.6 3.3 - 4.9 mmol/L FREDERICK VALENCIA Comment:Testing performed by : [address] [address] Chloride 106 97 - 110 mmol/L FREDERICK VALENCIA Comment:Testing performed by : [address] [address] CO2 26 22 - 32 mmol/L FREDERICK Comment:Testing performed by : [address] [address] Anion gap 10 2 - 15 mmol/L FREDERICK Comment:Testing performed by : [address] [address] BUN 8 6 - 25 mg/dL FREDERICK Comment:Testing performed by : [address] [address] Creatinine 0.90 0.60 - 1.10 mg/dL FREDERICK Comment:Testing performed by : [address] [address] Glucose 164 70 - 199 mg/dL FREDERICK Comment: Interpretive [...] was last revised 2022. Testing performed by: [address] [address] Calcium 9.3 8.5 - 10.3 mg/dL FREDERICK Comment:Testing performed by : [address] [address] Blood 08/30/2024 4:19 AM TRAFFIC COORDINATOR 08/30/2024 4:28 AM TRAFFIC COORDINATOR us Juno Hernandez MD LAB BLOOD ORDERABLES Final Result FREDERICK VALENCIA [address] [facility] Department [place] [address] * Thyroid Function [place] (08/29/2024 11:30 PM TRAFFIC COORDINATOR) TSH 3.73 0.30 - 4.20 mcIUnit/mL Comment:Testing performed by : [facility], [address] [place] [address]., [address] Blood 08/29/2024 11:3 0 PM TRAFFIC COORDINATOR 08/29/2024 11:39 PM TRAFFIC COORDINATOR Juno Hernandez MD LAB BLOOD ORDERABLES Final Result Performing Organization Address City/[facility] Co de Phone Number FREDERICK [facility]7 [facility] [place] [address] * N. gonorrhoeae/C. trachomatis Amplification Vaginal (08/29/2024 10:09 PM TRAFFIC COORDINATOR) [facility] C. trachomatis Not Detected Not Detected Comment:Testing performed by : [facility], [address] [place] [address]., [address] N. gonorrhoeae Not Detected Not Detected [facility] Comment: Interpretive Data This assay detects Chlamydia trachomatis and Neisseria gonorrhoeae by nucleic acid amplification testing (NAAT). This assay has been cleared by the [place] Food and Drug administration. The performance characteristics of this test have been verified by the [facility]. The performance characteristics of this test have not been evaluated in individuals less than 14 years of age. Current Interpretive Data last revised 2023. Testing performed by: [facility], [address] [place] [address]., [address] Vaginal (None) 08/29/2024 10 :09 PM TRAFFIC COORDINATOR 08/29/2024 10:31 PM TRAFFIC COORDINATOR us Juno Hernandez MD LAB MICROBIOLOGY - G ENERAL ORDERABLES Final Result Performing Organization Address City/[facility]/ZIP Co de Phone Number FREDERICK [facility]0 [facility] [employer] [place], [place] [id number] * Trichomonas vaginalis PCR Vaginal (08/29/2024 10:09 PM TRAFFIC COORDINATOR) [facility] Trichomonas DNA Not Detected Not Detected [facility] Comment: Interpretive Data This assay detects Trichomonas vaginalis by nucleic acid amplification testing (NAAT). This assay has been cleared by the [place] Food and Drug administration. The performance characteristics of this test have been verified by the [facility] Molecular Infectious Disease laboratory. Excess blood in specimens may be inhibitory and result in false negative results. The performance of this test has not been evaluated in women or individuals less than 18 years of age. Current Interpretive Data last revised 2023. Testing performed by: [facility], [address] [place]., [address] Vaginal 08/29/2024 10:0 9 PM TRAFFIC COORDINATOR 08/29/2024 10:31 PM TRAFFIC COORDINATOR Juno Hernandez MD LAB MICROBIOLOGY - G ENERAL ORDERABLES Final Result Performing Organization Address City/[facility]/ZIP Co de Phone Number FREDERICK [address] [place] [address] [facility] * (ABNORMAL) POCT glucose (08/29/2024 8:50 PM TRAFFIC COORDINATOR) Glucose, POC 203(H) 70 - 199 mg/dL Comment:Testing performed by : [address] [address] Glucose comment 1 Use This Result FREDERICK Comment:Testing performed by : [address] [address] Blood 08/29/2024 8:50 PM TRAFFIC COORDINATOR 08/29/2024 8:50 PM TRAFFIC COORDINATOR Juno Hernandez MD LAB POCT ORDERABLES - DEVICE Final Result Performing Organization Address City/[facility]/ZIP Co de Phone Number JULIAN[address] [place] [address] * POCT glucose (08/29/2024 6:15 PM TRAFFIC COORDINATOR) Glucose, POC 181 70 - 199 mg/dL Comment:Testing performed by : [address] [address] Blood 08/29/2024 6:15 PM TRAFFIC COORDINATOR 08/29/2024 6:15 PM TRAFFIC COORDINATOR Juno Hernandez MD LAB POCT ORDERABLES - DEVICE Final Result Performing Organization Address [facility] Co de Phone Number FREDERICK VALENCIA [address] [facility] [address] [place] [address] * Vaginitis panel Vaginal (08/29/2024 5:16 PM TRAFFIC COORDINATOR) [facility] Cristina DNA probe Not Detected Not Detected Comment:Testing performed by : [address] [address] Gardnerella DNA probe Not Detected Not Detected FREDERICK Comment:Testing performed by : [address] [address] Trichomonas DNA probe Not Detected Not Detected FREDERICK Comment: Interpretive Data Testing performed by [facility] via [employer] VPIII Microbial Identification Test, [...] last revised on 2020. Testing performed by: [address] [address] Vaginal 08/29/2024 5:16 PM TRAFFIC COORDINATOR 08/29/2024 5:51 PM TRAFFIC COORDINATOR Juno Hernandez MD LAB MICROBIOLOGY - G ENERAL ORDERABLES Final Result Performing Organization Address City/[facility]/ZIP Co de Phone Number FREDERICK [address] [facility] [address] [place] [address] * (ABNORMAL) POCT glucose (08/29/2024 12:47 PM TRAFFIC COORDINATOR) [facility] Glucose, POC 271(H) 70 - 199 mg/dL Comment:Testing performed by : [address] [address] Blood 08/29/2024 12:4 7 PM TRAFFIC COORDINATOR 08/29/2024 12:47 PM TRAFFIC COORDINATOR us Juno Hernandez MD LAB POCT ORDERABLES - DEVICE Final Result Performing Organization Address [facility] de Phone Number FREDERICK [address] [address] * POCT glucose (08/29/2024 8:29 AM TRAFFIC COORDINATOR) Pathologist [facility] Glucose, POC 134 70 - 199 mg/dL Comment:Testing performed by : [address] [address] Blood 08/29/2024 8:29 AM TRAFFIC COORDINATOR 08/29/2024 8:29 AM TRAFFIC COORDINATOR Juno Hernandez MD LAB POCT ORDERABLES - DEVICE Final Result Performing Organization Address [facility] de Phone Number FREDERICK [address] [address] * ECG 12 lead (08/29/2024 8:13 AM TRAFFIC COORDINATOR) [facility] Ventricular Rate EKG/Min 66 BPM [facility] Atrial Rate [address] [facility] HI-Interval (MSEC) [address] [facility] QRS-Interval (MSEC) [address] [facility] QT-Interval (MSEC) [address] [facility] QTc [address] [facility] P [place] [address] [facility] R [place] -[address] [facility] T [place] [address] [facility] Diagnosis Normal sinus rhythm Possible Inferior infarct , age undetermined Abnormal ECG No previous ECGs available Confirmed by JYOTSNA DOS SANTOS M.D. ([id number]) on 08/29/2024 10:44:27 AM [facility] 08/29/2024 8:13 AM TRAFFIC COORDINATOR 08/29/2024 10:44 AM TRAFFIC COORDINATOR us Olivier Bhagat MD ECG ORDERABLES Final Result [facility] * eGFR (08/29/2024 1:21 AM TRAFFIC COORDINATOR) eGFR 80 >=60 mL/min/1. 73 m2 Comment: [...] was last reviewed 2021. Testing performed by: [address] [address] Blood 08/29/2024 1:21 AM TRAFFIC COORDINATOR 08/29/2024 1:37 AM TRAFFIC COORDINATOR Olivier Bhagat MD LAB BLOOD ORDERABLES Final Re sult Performing Organization Address City/[facility]/ZIP Co de Phone Number [facility] [address] [facility] Department [place] [address] * (ABNORMAL) Comprehensive metabolic panel (08/29/2024 1:21 AM TRAFFIC COORDINATOR) Pathologist [facility] Sodium 141 135 - 145 mmol/L Comment:Testing performed by : [address] [address] Potassium, pl 3.6 3.3 - 4.9 mmol/L FREDERICK VALENCIA Comment:Testing performed by : [address] [address] Chloride 107 97 - 110 mmol/L [facility] Comment:Testing performed by : [address] [address] CO2 24 22 - 32 mmol/L FREDERICK Comment:Testing performed by : [address] [address] [address] Anion gap 10 2 - 15 mmol/L [facility] Comment:Testing performed by : [address] [address] BUN 4(L) 6 - 25 mg/dL [facility] Comment:Testing performed by : [address], [place]., [address] Creatinine 0.80 0.60 - 1.10 mg/dL [facility] Comment:Testing performed by : [address] [address] Glucose 166 70 - 199 mg/dL [facility] Comment: Interpretive Data Fasting glucose >/= 126 [...] was last revised 2022. Testing performed by: [address] [address] Calcium 9.1 8.5 - 10.3 mg/dL [facility] Comment:Testing performed by : [address] [address] Bilirubin, total 0.3 0.1 - 1.2 mg/dL [facility] Comment:Testing performed by : [address] [address] Protein, pl 5.3(L) 6.5 - 8.5 g/dL [facility] Comment:Testing performed by : [address] [address] Albumin 3.3(L) 3.5 - 5.0 g/dL [facility] Comment:Testing performed by : [address] [address] Alk phos 83 40 - 130 Units/L [facility] Comment:Testing performed by : [address] [address] ALT 8 7 - 45 Units/L [facility] Comment:Testing performed by : [address] [address] AST 9(L) 10 - 45 Units/L [facility] Comment:Testing performed by : [address] [address] Blood 08/29/2024 1:21 AM TRAFFIC COORDINATOR 08/29/2024 1:37 AM TRAFFIC COORDINATOR us Olivier Bhagat MD LAB BLOOD ORDERABLES Final Re sult Performing Organization Address [facility] Co de Phone Number [address] [place] [address] * (ABNORMAL) POCT glucose (08/28/2024 8:30 PM TRAFFIC COORDINATOR) Glucose, POC 245(H) 70 - 199 mg/dL Comment:Testing performed by : [address], [address] Glucose comment 1 Use This Result [facility] Comment:Testing performed by : [address] [address] Blood 08/28/2024 8:30 PM TRAFFIC COORDINATOR 08/28/2024 8:30 PM TRAFFIC COORDINATOR us Juno Hernandez MD LAB POCT ORDERABLES - DEVICE Final Result Performing Organization Address City/[facility] Co de Phone Number [address] [place] [address] * (ABNORMAL) POCT glucose (08/28/2024 5:12 PM TRAFFIC COORDINATOR) Glucose, POC 242(H) 70 - 199 mg/dL Comment:Testing performed by : [address] [address] Glucose comment 1 Use This Result [facility] Comment:Testing performed by : [address] [address] Blood 08/28/2024 5:12 PM TRAFFIC COORDINATOR 08/28/2024 5:12 PM TRAFFIC COORDINATOR us Juno Hernandez MD LAB POCT ORDERABLES - DEVICE Final Result Performing Organization Address [facility] de Phone Number [facility] [place] [address] * POCT glucose (08/28/2024 11:57 AM TRAFFIC COORDINATOR) [facility] Signature Glucose, POC 166 70 - 199 mg/dL Comment:Testing performed by : [address] [address] Glucose comment 1 Use This Result [facility] Comment:Testing performed by : [address] [address] Blood 08/28/2024 11:5 7 AM TRAFFIC COORDINATOR 08/28/2024 11:57 AM TRAFFIC COORDINATOR us Juno Hernandez MD LAB POCT ORDERABLES - DEVICE Final Result Performing Organization Address [facility] de Phone Number FREDERICK [address] [address] * CT Abdomen Pelvis W Contrast (08/28/2024 11:27 AM TRAFFIC COORDINATOR) Anatomical Region Laterality Modality Body N/A Computed Tomogra phy 08/28/2024 12:0 3 PM TRAFFIC COORDINATOR Narrative 08/28/2024 12:22 PM TRAFFIC COORDINATOR EXAM DESCRIPTION: CT ABDOMEN PELVIS W CONTRAST [...] Alexandr Goodson M.D. NS: NS Report ID: [id number] Reading Location: [place] [address] Procedure Note Alexandr Goodson MD - 08/28/2024 [...] Alexandr Goodson M.D. NS: NS Report ID: [id number] Reading Location: [id number] us Olivier Bhagat MD IMG CT PROCEDURES Final Resul t * POCT glucose (08/28/2024 8:17 AM TRAFFIC COORDINATOR) Glucose, POC 153 70 - 199 mg/dL Comment:Testing performed by : [address] [address] Glucose comment 1 Use This Result [facility] Comment:Testing performed by : [address] [address] Blood 08/28/2024 8:17 AM TRAFFIC COORDINATOR 08/28/2024 8:17 AM TRAFFIC COORDINATOR Juno Hernandez MD LAB POCT ORDERABLES - DEVICE Final Result [facility] [address] [facility] Department [place] [address] * Lactate (08/28/2024 7:12 AM TRAFFIC COORDINATOR) Lactate 1.6 0.7 - 2.0 mmol/L Comment:Testing performed by : [address] [address] Blood 08/28/2024 7:12 AM TRAFFIC COORDINATOR 08/28/2024 7:16 AM TRAFFIC COORDINATOR us Olivier Bhagat MD LAB BLOOD ORDERABLES Final Re sult FR[facility]ER[facility] [address] [place] [address] * eGFR (08/28/2024 7:12 AM TRAFFIC COORDINATOR) eGFR 80 >=60 mL/min/1. 73 m2 Comment: [...] was last reviewed 2021. Testing performed by: [address] [address] Blood 08/28/2024 7:12 AM TRAFFIC COORDINATOR 08/28/2024 7:25 AM TRAFFIC COORDINATOR us Juno Hernandez MD LAB BLOOD ORDERABLES Final Result [facility] [address] [facility] Department [place] [address] * (ABNORMAL) Differential, auto (08/28/2024 7:12 AM TRAFFIC COORDINATOR) Neutrophil abs 5.8 1.5 - 6.5 K/cumm Comment:Testing performed by : [address] [address] Imm gran abs 0.1 0.0 - 0.1 K/cumm [facility] Comment:Testing performed by : [address] [address] Lymphocyte abs 3.6(H) 0.8 - 3.3 K/cumm [facility] Comment:Testing performed by : [address] [address] Monocyte abs 0.7 0.2 - 0.8 K/cumm [facility] Comment:Testing performed by : [address] [address] Eosinophil abs 0.1 0.0 - 0.5 K/cumm [facility] Comment:Testing performed by : [address] [address] Basophil abs 0.1 0.0 - 0.1 K/cumm [facility] Comment:Testing performed by : [address] [address] Neutrophil pct 56.3 % [facility] Comment: Interpretive Data Percent cell count reference ranges are not reported, since discordance with absolute values may lead to misinterpretation of CBC data. Current Interpretive Data was last revised on 2017. Testing performed by: [address] [address] Imm gran pct 0.7 % [facility] Comment: Interpretive Data Percent cell count reference ranges are not reported, since discordance with absolute values may lead to misinterpretation of CBC data. Current Interpretive Data was last revised on 2017. Testing performed by: [address] [address] Lymphocyte pct 34.6 % [facility] Comment: Interpretive Data Percent cell count reference ranges are not reported, since discordance with absolute values may lead to misinterpretation of CBC data. Current Interpretive Data was last revised on 2017. Testing performed by: [address] [address] Monocyte pct 6.6 % [facility] Comment: Interpretive Data Percent cell count reference ranges are not reported, since discordance with absolute values may lead to misinterpretation of CBC data. Current Interpretive Data was last revised on 2017. Testing performed by: [address] [address] Eosinophil pct 1.3 % [facility] Comment: Interpretive Data Percent cell count reference ranges are not reported, since discordance with absolute values may lead to misinterpretation of CBC data. Current Interpretive Data was last revised on 2017. Testing performed by: [address] [address] Basophil pct 0.5 % [facility] Comment: Interpretive Data Percent cell count reference ranges are not reported, since discordance with absolute values may lead to misinterpretation of CBC data. Current Interpretive Data was last revised on 2017. Testing performed by: [address] [address] Blood 08/28/2024 7:12 AM TRAFFIC COORDINATOR 08/28/2024 7:25 AM TRAFFIC COORDINATOR us Olivier Bhagat MD LAB BLOOD ORDERABLES Final Re sult [facility] [address] [facility] Department [place] [address] * (ABNORMAL) CBC with auto differential (08/28/2024 7:12 AM TRAFFIC COORDINATOR) WBC 10.4(H) 3.8 - 9.9 K/cumm Comment:Testing performed by : [address] [address] Hgb 12.3 11.9 - 15.5 g/dL [facility] Comment:Testing performed by : [address] [address] Hct 38.0 35.6 - 45.5 % [facility] Comment:Testing performed by : [address], [address] Plt 216 150 - 400 K/cumm [facility] Comment:Testing performed by : [address], [address] MPV 10.9 9.1 - 12.3 fL [facility] Comment:Testing performed by : [address], [address] RBC 4.56 3.90 - 5.20 M/cumm [facility] Comment:Testing performed by : [address], [address] MCV 83.3 81.3 - 96.4 fL [facility] Comment:Testing performed by : [address], [address] MCH 27.0(L) 27.1 - 33.3 pg [facility] Comment:Testing performed by : [address], [address] MCHC 32.4 32.3 - 35.7 g/dL [facility] Comment:Testing performed by : [address], [address] RDW CV 15.3(H) 11.1 - 14.9 % [facility] Comment:Testing performed by : [address], [address] RDW SD 46.2 35.7 - 48.1 fL [facility] Comment:Testing performed by : [address], [address] NRBC abs 0.00 0.00 - 0.01 K/cumm [facility] Comment:Testing performed by : [address], [address] Blood 08/28/2024 7:12 AM TRAFFIC COORDINATOR 08/28/2024 7:25 AM TRAFFIC COORDINATOR us Olivier Bhagat MD LAB BLOOD ORDERABLES Final Re sult [facility] [address] [facility] Department [place] [address] * Creatine kinase (CK), total (08/28/2024 7:12 AM TRAFFIC COORDINATOR) Pathologist [facility] CK 56 30 - 200 Units/L Comment:Testing performed by : [address] [address] Blood 08/28/2024 7:12 AM TRAFFIC COORDINATOR 08/28/2024 7:25 AM TRAFFIC COORDINATOR us Olivier Bhagat MD LAB BLOOD ORDERABLES Final Re sult [facility] [address] [facility] Department [place] [address] * (ABNORMAL) Basic metabolic panel (08/28/2024 7:12 AM TRAFFIC COORDINATOR) [facility] Sodium 138 135 - 145 mmol/L Comment:Testing performed by : [address] [address] Potassium, pl 3.0(L) 3.3 - 4.9 mmol/L [facility] Comment:Testing performed by : [address] [address] Chloride 103 97 - 110 mmol/L [facility] Comment:Testing performed by : [address] [address] CO2 21(L) 22 - 32 mmol/L [facility] Comment:Testing performed by : [address] [address] Anion gap 14 2 - 15 mmol/L [facility] Comment:Testing performed by : [address] [address] BUN 7 6 - 25 mg/dL [facility] Comment:Testing performed by : [address] [address] Creatinine 0.80 0.60 - 1.10 mg/dL [facility] Comment:Testing performed by : [address] [address] Glucose 202(H) 70 - 199 mg/dL [facility] Comment: Interpretive [...] was last revised 2022. Testing performed by: [address] [address] Calcium 9.4 8.5 - 10.3 mg/dL [facility] Comment:Testing performed by : [address] [address] Blood 08/28/2024 7:12 AM TRAFFIC COORDINATOR 08/28/2024 7:25 AM TRAFFIC COORDINATOR us Juno Hernandez MD LAB BLOOD ORDERABLES Final Result [facility] [address] [facility] Department [place] [address] * (ABNORMAL) POCT glucose (08/28/2024 6:08 AM TRAFFIC COORDINATOR) [facility] Glucose, POC 216(H) 70 - 199 mg/dL Comment:Testing performed by : [address] [address] Glucose comment 1 Use This Result [facility] Comment:Testing performed by : [address] [address] Glucose comment 2 RN/MD Notified [facility] Comment:Testing performed by : [address] [address] Blood 08/28/2024 6:08 AM TRAFFIC COORDINATOR 08/28/2024 6:08 AM TRAFFIC COORDINATOR us Olivier Bhagat MD LAB POCT ORDERABLES - DEVICE Final Result Performing Organization Address City/[facility] Co de Phone Number [facility] [address] [facility] Department [place] [address] * CT Body Outside Reference (08/27/2024 12:00 AM TRAFFIC COORDINATOR) Narrative DENYS_MHE - 10/01/2024 8:35 AM TRAFFIC COORDINATOR This order has been auto-finalized and does not contain a result. us Provider Transcribed Order IMG CT PROCEDURES Fin al Result Performing Organization Address [facility] de Phone Number [email or web address] * XR Outside Reference (08/27/2024 12:00 AM TRAFFIC COORDINATOR) Narrative DENYS_MHE - 10/01/2024 8:33 AM TRAFFIC COORDINATOR This order has been auto-finalized and does not contain a result. us Provider Transcribed Order IMG XR PROCEDURES Fin al Result Performing Organization Address [facility] Co de Phone Number [email or web address] * (ABNORMAL) Hemoglobin A1c (07/23/2024 9:07 AM TRAFFIC COORDINATOR) Hgb A1C 9.8(H) 4.0 - 5.6 % Comment:Testing performed by : [address] [address] Estimated Average Glucose 235 mg/dL [facility] Comment: The ADA recommends reporting an estimated Average Glucose (eAG) with all Hemoglobin A1c results using the equation derived from a study of 507 normal and diabetic adults. Minority populations were underrepresented and children were not included. (Diabetes Care 31:4656-5749, 2008). The eAG is not equivalent to a fasting glucose. Testing performed by: [address] [address] Blood 07/23/2024 9:07 AM TRAFFIC COORDINATOR 07/23/2024 9:50 AM TRAFFIC COORDINATOR Juliano Chavarria MD LAB BLOOD ORDERABLES Final Result [facility] [address] [facility] Department of [address] [place] [address] from Last 3 Months or Most Recently Relevant to Health Maintenance Insurance MEDICARE SOLUTIONS MEDICARE SOLUTIONS Advance Directives For more information, please contact: [phone] * Full Code (Latest Code Status on File) Date Activated Date Inactivated Comments 08/28/2024 7:07 AM 09/02/2024 6:00 PM * Full Code Date Activated Date Inactivated Comments 07/22/2024 3:20 AM 07/25/2024 3:36 PM Care Teams Byproducts Operator Relationship Specialty Start Date End Date Sam Delgado MD PCP - General 05/15/08
== END 2024-11-20 14:54 | disposition home or self-care (01) ==
PROVIDERS: PCP Nurse Practitioner Adult Health; Visit Provider Nurse Practitioner Adult Health
DX: N20.0 Calculus of kidney (principal); K57.92 Diverticulitis of intestine, part unspecified, without perforation or abscess without bleeding; R50.9 Fever, unspecified
CPT/HCPCS: 74176

== ENCOUNTER 2025-01-08 14:59 | Emergency (ER) | payer MEDICARE, SELFPAY ==
--- NOTE | ~2025-01-08 | CT_ITS ---
EXAMINATION: CTA chest abdomen pelvis DATE: 01/08/2025 16:51 CDT INDICATION: Left-sided back pain with difficulty breathing TECHNIQUE: Computed tomographic angiography (CTA) of the chest was performed, along with multiple con tiguous axial images of the abdomen and pelvis with 100 mL Omnipaque-350 intravenous contrast. The do se-length product was 1082.63 mGy-cm. Maximum intensity projection 3D-reconstructions of the aorta an d other arteries were constructed by the technologist on a separate workstation. FINDINGS/OBSERVATIONS: PULMONARY ARTERIES: No filling defect is identified within the main or proximal pulmonary artery. The main pulmonary artery is not enlarged. THORACIC AORTA: No aneurysmal dilatation or dissection is present. The great vessels are intact LUNGS: Trace bibasilar atelectasis. The remainder of the lungs are clear. MEDIASTINUM: No morphologically suspicious or pathologically enlarged lymph nodes are identified with in the mediastinum or bilateral axilla. BONES OF THE CHEST: No acute fracture. No significant degenerative disease. No lytic or blastic lesions. HEART: The heart is of normal size, without pericardial effusion. LIVER: The liver enhances homogeneously and is borderline enlarged measuring 19 cm in longitudinal dimension . GALLBLADDER AND BILIARY SYSTEM: The gallbladder is surgically absent. PANCREAS: Fatty atrophy of the pancreas, without ductal dilatation. SPLEEN: The spleen enhances homogeneously and is not enlarged. KIDNEYS: The bilateral kidneys enhance symmetrically without hydronephrosis or renal calculi. ADRENAL GLANDS: Unremarkable. GASTROINTESTINAL TRACT: Mural thickening and edema is identified within the rectosigmoid colon with diverticulosis and surrou nding inflammatory change, findings suggesting acute/early diverticulitis for which clinical correlat ion is needed. APPENDIX: Surgically absent. VASCULATURE: Calcified atherosclerotic disease. LYMPH NODES: No pathologically enlarged or morphologically suspicious lymph nodes within the retroperitoneum or at the root of the mesentery. PELVIC STRUCTURES: The bladder is only minimally distended, and otherwise unremarkable. The uterus is surgically absent. BODY WALL AND MUSCULOSKELETAL: Small fat-containing umbilical hernia. Age-appropriate degenerative disease. IMPRESSION: Bibasilar atelectasis. No pulmonary embolus. No aortic dissection. Findings within the rectosigmoid colon suggesting acute/early diverticulitis for which clinical corre lation is needed. Reviewed, dictated and finalized at location A. IMPRESSION: Bibasilar atelectasis. No pulmonary embolus. No aortic dissection. Findings within the rectosigmoid colon suggesting acute/early diverticulitis fo r which clinical correlation is needed.
--- NOTE | 2025-01-08 15:02 | ECG_ITS ---
Test Date: 2025-01-08 15:06:30 Measurements Intervals [place] Rate: 114 P: 51 [place]: 132 QRS: -7 QRSD: 81 T: 60 QT: 313 QTc: 432 Interpretive Statements SINUS TACHYCARDIA Compared to ECG 06/08/2024 08:23:17 NO SIGNIFICANT CHANGES Electronically Signed On 01-09-2025 10:01:52 CDT by Mi Carey M.D.
--- OUTSIDE RECORDS SUMMARY | 2025-01-08 15:02 | XMS_ITS | Clinical Summary ---
Author Organization [facility] Address [address] [place] [address] Care Team Providers Care Industrial Designer Name Role Phone Sam Delgado MD Primary Care Provider [phone] Source Comments [facility],non-[facility] Affiliates and Associated Physician Practices is amultiple site organization consisting of ambulatory clinics and hospital sitesin [place], [place], [place] and [place]. This disclosure is being madepursuant to the Care Everywhere program and may not contain all information available regarding this patient. 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 Gender Identity Not on file Sexual Orientation [...] VACCINE (1 of 2) 2005 COVID-19 VACCINE (1 - 2023-2 5 season) 2024 DEPRESSION SCREENING 09/04/2024 MEDICARE AWV CALENDAR YEAR 2024 INFLUENZA VACCINE (Season Ended) 2025 Respiratory Syncytial Virus (RSV) Vaccine Pt: or [...] on patient's age to complete this topic Insurance [employer] MEDICARE [employer] MANAGED MEDICARE ADV [employer] SELF PAY NO INSURANCE Member Subscriber Plan / Payer (Ef fective for All Dates) Name:Keyon Craig Member ID:Not on file Relation to Subscriber:Not on file Name:KEYON CRAIG Subscriber ID:Not on file (Home) Address: [address] [place] [id number] Payer ID:Not on file Group ID:Not on file Type:Self Pay Address: [place], [place] Care Teams Industrial Designer Relationship Specialty Start Date End Date Sam Delgado MD [address] [place] [address] PCP - General 07/04/22
--- OUTSIDE RECORDS SUMMARY | 2025-01-08 15:02 | XMS_ITS | Clinical Summary ---
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
--- OUTSIDE RECORDS SUMMARY | 2025-01-08 15:02 | XMS_ITS | Referral Summary ---
Author Organization [facility] Address [address] [place] [address] Care Team Providers Care Cargo Surveyor Name Role Phone Sam Delgado MD Primary Care Provider [phone] Encounters Date Type Department Care Team Description 10/29/2024 1:00 PM METHODS TIME ANALYST - 10/29/2024 7:55 PM [facility] Emergency [facility] Emergency Department [address] [place] [address] Fran Swan MD Acute diverticulitis (Primary Dx); Hyperglycemia; Nausea and vomiting, unspecified vomiting type; Abdominal pain Discharge Disposition: Discharge to home or self care from Last 3 Months Allergies Active Allergy Reactions Criticality Noted Date Comments Adhesive Tape-Silicones Rash Medium Penicillins Nausea & Vomiting Low Mdrwpyh-Vwq-Hym Reductase Inhibitors Hives Medium Medications buPROPion XL [...] or shortness of breath 11/05/19 23 Active HYDROcodone-acetam inophen (NORCO) 5-325 mg per tablet Take 1 [...] 24 025 Active meclizine (ANTIVERT) 25 mg tabletIndications: Vertigo Take 1 tablet (25 mg total) by mouth 3 (three) times a day as needed for dizziness 30 tablet 09/02/20 24 Active ondansetron ODT (ZOFRAN-ODT) 4 mg disintegrating tablet Take 1 tablet (4 mg total) by mouth every 8 (eight) hours as needed for nausea or vomiting 20 tablet 10/29/19 25 Active Active Problems Problem Noted Date Diagnosed Date Sepsis due to anaerobic bacteria 08/28/2024 Abdominal pain 07/22/2024 Hypothyroidism 01/18/2014 Overview (12/09/2016): HYPOTHYROIDISM NOS Social History Tobacco Use Types Packs/Day Years Used Date Smoking Tobacco: Never Tobacco Cessation:Counseling Given: Not Answered Alcohol Use Standard Drinks/Week Comments No 0 (1 standard drink = 0.6 oz pur e alcohol) [facility] Utilities Answer Date Recorded In the [...] often do you attend chur ch or synagogue services? Never 08/29/2024 Do you belong to any clubs o r organizations such as mandaeism groups, unions, fraternal or athletic groups, or [...] any time in the [facility], were you homeless or living in a care home (including now)? No 08/29/2024 Personal Safety Answer Date Recorded Have you ever been in or are you currently in a harmful physical or emotional relationship or is someone making you feel afraid or unsafe? Denies 10/29/2024 Comments No Sex and Gender Information Value Date Recorded Sex Assigned at Not on file Legal Sex Female 12:42 AM METHODS TIME ANALYST Gender Identity Not on file Sexual Orientation Not on file Last Filed Vital Signs Vital Sign Reading Time Taken Comments Blood Pressure 141/83 10/29/2024 6:15 PM METHODS TIME ANALYST Pulse 98 10/29/2024 6:15 PM METHODS TIME ANALYST Temperature 36.4 C (97.6 F) 10/29/2024 12:12 PM METHODS TIME ANALYST Respiratory Rate 17 10/29/2024 6:15 PM METHODS TIME ANALYST Oxygen Saturation 99% 10/29/2024 6:15 PM METHODS TIME ANALYST Inhaled Oxygen Concentration - - Weight 90.6 kg (199 lb 11.2 oz) 08/28/2024 6:04 AM METHODS TIME ANALYST Height 152.4 cm (5') 08/28/2024 6:04 AM METHODS TIME ANALYST Body Mass Index 39 08/28/2024 6:04 AM METHODS TIME ANALYST Plan of Treatment Not on file Procedures Procedure Name Priority Date/Time Associated Diagnosis Comments POCT GLUCOSE DEVICE Routine 10/29/2024 7 :07 PM METHODS TIME ANALYST POCT GLUCOSE DEVICE Routine 10/29/2024 5 :[address] ABDOMEN PELVIS W CONTRAST ED 10/29/2024 4:42 PM METHODS TIME ANALYST EGFR STAT 10/29/2024 4:31 PM METHODS TIME ANALYST BETA-HYDROXYBUTYRATE Routine 10/29/2024 4:31 PM METHODS TIME ANALYST BLOOD GAS, VENOUS Routine 10/29/2024 4:3 1 PM METHODS TIME ANALYST COMPREHENSIVE METABOLIC PANEL STAT 10/29/2024 4:31 PM METHODS TIME ANALYST SEPSIS LACTATE WITH REFLEX Timed 10/29/2024 4:31 PM METHODS TIME ANALYST POCT GLUCOSE DEVICE Routine 10/29/2024 4 :27 PM METHODS TIME ANALYST WA CRITICAL CARE ILL/INJURED PATIENT INIT 30-74 MIN Routine 10/29/2024 3:59 PM METHODS TIME ANALYST TROPONIN T HIGH-SENSITIVITY STAT 10/29/2024 3:29 PM METHODS TIME ANALYST TROPONIN T HIGH-SENSITIVITY 2-HOUR Timed 10/29/2024 3:29 PM METHODS TIME ANALYST LIPASE STAT 10/29/2024 3:29 PM METHODS TIME ANALYST POCT GLUCOSE DEVICE Routine 10/29/2024 3 :28 PM METHODS TIME ANALYST EGFR STAT 10/29/2024 1:31 PM METHODS TIME ANALYST DIFFERENTIAL AUTO STAT 10/29/2024 1:3 1 PM METHODS TIME ANALYST SEPSIS LACTATE WITH REFLEX STAT 10/29/2024 1:31 PM METHODS TIME ANALYST COMPREHENSIVE METABOLIC PANEL STAT 10/29/2024 1:31 PM METHODS TIME ANALYST CBC WITH AUTO DIFFERENTIAL STAT 10/29/2024 1:31 PM METHODS TIME ANALYST RESPIRATORY PATHOGEN PANEL STAT 10/29/2024 1:31 PM METHODS TIME ANALYST XR CHEST 1 VIEW ED 10/29/2024 1:29 PM METHODS TIME ANALYST ECG 12-LEAD Routine 10/29/2024 12:18 PM METHODS TIME ANALYST POCT GLUCOSE DEVICE Routine 10/29/2024 1 2:13 PM METHODS TIME ANALYST HEMOGLOBIN A1C Routine 07/23/2024 9:07 AM METHODS TIME ANALYST from Last 3 Months or Most Recently Relevant to Health Maintenance Results * POCT glucose (10/29/2024 7:07 PM METHODS TIME ANALYST) Glucose, POC 168 70 - 199 mg/dL Blood 10/29/2024 7:07 PM METHODS TIME ANALYST 10/29/2024 7:07 PM METHODS TIME ANALYST Fran Swan MD LAB POCT ORDERABLES - DEANDRE CE Final Result Performing Organization Address [facility] Co de Phone Number FR[place] [phone] [address] [place] [address] * (ABNORMAL) POCT glucose (10/29/2024 5:53 PM METHODS TIME ANALYST) Glucose, POC 257(H) 70 - 199 mg/dL Blood 10/29/2024 5:53 PM METHODS TIME ANALYST 10/29/2024 5:53 PM METHODS TIME ANALYST Fran Swan MD LAB POCT ORDERABLES - DEANDRE CE Final Result Performing Organization Address [facility] [place] [address] [place] [address] * CT Abdomen Pelvis W Contrast (10/29/2024 4:42 PM METHODS TIME ANALYST) Anatomical Region Laterality Modality Body N/A Computed Tomogra phy 10/29/2024 5:25 PM METHODS TIME ANALYST Impressions 10/29/2024 5:25 PM METHODS TIME ANALYST MILD ACUTE SIGMOID DIVERTICULITIS Electronically signed by: Richard Alexis M.D. Narrative 10/29/2024 5:25 PM METHODS TIME ANALYST EXAMINATION: CT ABDOMEN PELVIS W CONTRAST DATE: [...] Sepsis Lactate w/ Reflex (10/29/2024 4:31 PM METHODS TIME ANALYST) Sepsis Lactate 1.7 0.7 - 2.0 mmol/L Blood 10/29/2024 4:31 PM METHODS TIME ANALYST 10/29/2024 4:35 PM METHODS TIME ANALYST Fran Swan MD LAB BLOOD ORDERABLES Final Result [address] [facility] [place] [address] * eGFR (10/29/2024 4:31 PM METHODS TIME ANALYST) eGFR 74 >=60 mL/min/1. 73 m2 Comment: [...] data was last reviewed 2021. Blood 10/29/2024 4:3 1 PM METHODS TIME ANALYST 10/29/2024 4:35 PM METHODS TIME ANALYST Fran Swan MD LAB BLOOD ORDERABLES Final Result JULIANJENIFER [address] [place] [address] * (ABNORMAL) Beta-hydroxybutyrate (10/29/2024 4:31 PM METHODS TIME ANALYST) Beta-Hydroxybut yrate 1.2(H) <=0.5 mmol/L Blood 10/29/2024 4:31 PM METHODS TIME ANALYST 10/29/2024 4:35 PM METHODS TIME ANALYST Fran Swan MD LAB BLOOD ORDERABLES Final Result Performing Organization Address City/[facility]/ZIP Co de Phone Number FREDERICK JOINER [address] [place] [address] * (ABNORMAL) Blood gas, venous (10/29/2024 4:31 PM METHODS TIME ANALYST) pH, Venous 7.42 7.32 - 7.43 PCO2, Venous 37(L) 40 - 50 mmHg CERNER PO2, Venous 43 mmHg CERNER Comment: Interpretive Data No Reference Range Established Current Interpretive Data was last revised on 2017. HCO3 Venous, Calculated 24 20 - 30 mmol/L CERNER CH BE, venous -1 mmol/L CERNER CH Comment: Interpretive Data No Reference Range Established Current Interpretive Data was last revised on 2017. Blood 10/29/2024 4:31 PM METHODS TIME ANALYST 10/29/2024 4:35 PM METHODS TIME ANALYST Fran Swan MD LAB [place]LOOD [place] [address] [address] [facility] [place] [address] * (ABNORMAL) Comprehensive metabolic panel (10/29/2024 4:31 PM METHODS TIME ANALYST) Sodium 135 135 - 145 mmol/L Potassium, [...] Units/L CERNER CH Blood 10/29/2024 4:31 PM METHODS TIME ANALYST 10/29/2024 4:35 PM METHODS TIME ANALYST Fran Swan MD LAB BLOOD ORDERABLES Final Result FR[place]ICK [address] [place] [place] [address] * (ABNORMAL) POCT glucose (10/29/2024 4:27 PM METHODS TIME ANALYST) Glucose, POC 227(H) 70 - 199 mg/dL Blood 10/29/2024 4:27 PM METHODS TIME ANALYST 10/29/2024 4:27 PM METHODS TIME ANALYST Fran Swan MD LAB POCT ORDERABLES - DEANDRE CE Final Result Performing Organization Address [facility]/ZIP Co de Phone Number FREDERICK JOINER [address] [place] [place] [address] * WA CRITICAL CARE ILL/INJURED PATIENT INIT 30-74 MIN (10/29/2024 3:59 PM METHODS TIME ANALYST) Narrative Fran Swan MD - 10/29/2024 3:59 PM METHODS TIME ANALYST Fran Swan MD 11/04/2024 4:49 AM Critical [...] Troponin T high-sensitivity 2-hour (10/29/2024 3:29 PM METHODS TIME ANALYST) Trop T hs See Comment <=14 Comment: Interpretive Data For further hscTnT resources including the diagnostic algorithm and an aid in interpretation, copy and paste this link: https://nrl.Mind-NRG.org/show/hsTrop Current Interpretive Data last revised 2020. Trop T hs interp See Comment FREDERICK JOINER Blood 10/29/2024 3:29 PM METHODS TIME ANALYST 10/29/2024 3:31 PM METHODS TIME ANALYST Fran Swan MD LAB BLOOD ORDERABLES Final Result JULIANJENIFER MARIS[address] [place] [address] * Troponin T high-sensitivity (10/29/2024 3:29 PM METHODS TIME ANALYST) Pathologist [facility] Trop T hs 13 <=14 ng/L Comment: Interpretive Data For further hscTnT resources including the diagnostic algorithm and an aid in interpretation, copy and paste this link: https://nrl.Mind-NRG.org/show/hsTrop Current Interpretive Data last revised 2020. Blood 10/29/2024 3:29 PM METHODS TIME ANALYST 10/29/2024 4:56 PM METHODS TIME ANALYST Fran Swan MD LAB BLOOD ORDERABLES Final Result JULIANJENIFER [address] [facility] [place] [address] * Lipase (10/29/2024 3:29 PM METHODS TIME ANALYST) Lipase 20 10 - 99 Units/L Blood Venous blood specimen / Unknown 10/29/2024 3:29 PM METHODS TIME ANALYST 10/29/2024 4:55 PM METHODS TIME ANALYST Fran Swan MD LAB BLOOD ORDERABLES Final Result Performing Organization Address [facility] Co de Phone Number FREDERICK JOINER [address] [facility] [place] [address] * (ABNORMAL) POCT glucose (10/29/2024 3:28 PM METHODS TIME ANALYST) Pathologist [facility] Glucose, POC 288(H) 70 - 199 mg/dL Blood 10/29/2024 3:28 PM METHODS TIME ANALYST 10/29/2024 3:28 PM METHODS TIME ANALYST Fran Swan MD LAB POCT ORDERABLES - DEANDRE CE Final Result Performing Organization Address [facility] de Phone Number JULIANJENIFER [address] [place] [address] * (ABNORMAL) Sepsis Lactate w/ Reflex (10/29/2024 1:31 PM METHODS TIME ANALYST) [facility] Sepsis Lactate 2.9(H) 0.7 - 2.0 mmol/L Blood 10/29/2024 1:31 PM METHODS TIME ANALYST 10/29/2024 1:41 PM METHODS TIME ANALYST Fran Swan MD LAB BLOOD ORDERABLES Final Result Performing Organization Address [facility] de Phone Number FREDERICK JOINER [address] [facility] [place] [address] * eGFR (10/29/2024 1:31 PM METHODS TIME ANALYST) [facility] eGFR 67 >=60 mL/min/1. 73 m2 Comment: [...] of Race in Diagnosing Kidney Disease, JASN 202). The CKD-EPI equation should not be used for patients with unstable renal function and has not been validated in children and those over 70. Current interpretive data was last reviewed 2021. Blood 10/29/2024 1:31 PM METHODS TIME ANALYST 10/29/2024 1:43 PM METHODS TIME ANALYST us Fran Swan MD LAB BLOOD ORDERABLES Final Result [facility] [address] [place] [address] * (ABNORMAL) Differential, auto (10/29/2024 1:31 PM METHODS TIME ANALYST) Neutrophil abs 5.7 1.5 - 6.5 K/cumm Imm gran abs 0.2(H) 0.0 - 0.1 K/cumm [facility] Lymphocyte abs 3.4(H) 0.8 - 3.3 K/cumm [facility] Monocyte abs 1.0(H) 0.2 - 0.8 K/cumm [facility] Eosinophil abs 0.1 0.0 - 0.5 K/cumm [facility] Basophil abs 0.1 0.0 - 0.1 K/cumm [facility] Neutrophil pct 54.8 % [facility] Comment: Interpretive Data Percent cell count reference ranges are not reported, since discordance with absolute values may lead to misinterpretation of CBC data. Current Interpretive Data was last revised on 2017. Imm gran pct 1.5 % [facility] Comment: Interpretive Data Percent cell count reference ranges are not reported, since discordance with absolute values may lead to misinterpretation of CBC data. Current Interpretive Data was last revised on 2017. Lymphocyte pct 32.5 % [facility] Comment: Interpretive Data Percent cell count [...] revised on 2017. Blood 10/29/2024 1:31 PM METHODS TIME ANALYST 10/29/2024 1:42 PM METHODS TIME ANALYST Fran Swan MD LAB BLOOD ORDERABLES Final Result [facility] [address] Department of Laboratories [place], [place] [id number] * Respiratory pathogen panel Nasopharyngeal (10/29/2024 1:31 PM METHODS TIME ANALYST) Pathologist [facility] Influenza A RNA Not Detected Not Detected Influenza B RNA Not Detected Not Detected [facility] RSV RNA Not Detected Not Detected [facility] COVID-19 RNA Not Detected Not Detected [facility] Coronavirus 229E RNA Not Detected Not Detected [facility] Coronavirus HKU1 RNA Not Detected Not Detected [facility] Coronavirus NL63 RNA Not Detected Not Detected [facility] Coronavirus OC43 RNA Not Detected Not Detected [facility] Adenovirus DNA Not Detected Not Detected [facility] Metapneumovirus RNA Not Detected Not Detected [facility] Rhinovirus/Enterov irus RNA Not Detected Not Detected [facility] Parainfluenza 1 RNA Not Detected Not Detected [facility] Parainfluenza 2 RNA Not Detected Not Detected [facility] Parainfluenza 3 RNA Not Detected Not Detected [facility] Parainfluenza 4 RNA Not Detected Not Detected [facility] B. pertussis DNA Not Detected Not Detected [facility] B. parapertussis DNA Not Detected Not Detected [facility] C. pneumoniae DNA Not Detected Not Detected [facility] M. pneumoniae DNA Not Detected Not Detected [facility] Comment: Interpretive Data The [employer] FilmArray Respiratory Panel (RP2.1) assay is a [...] assay has FDA clearance for testing of TELECOMMUNICATION ENGINEER swabs. The performance characteristics of this assay have been determined by [facility]. Current interpretive data was last revised on 2021. Nasopharyngeal 10/29/2024 1: 31 PM METHODS TIME ANALYST 10/29/2024 1:42 PM METHODS TIME ANALYST Narrative C[facility]ER CH - 10/29/2024 2:37 PM METHODS TIME ANALYST Is the Patient experiencing symptoms consistent with COVID?->Yes Surveillance testing for transplant patient?->No Fran Swan MD LAB MICROBIOLOGY - GENERAL ORDERABLES Final Result Performing Organization Address City/[facility]/ZIP Co de Phone Number FREDERICK JOINER [address] [place] [address] CH * (ABNORMAL) CBC with auto differential (10/29/2024 1:31 PM METHODS TIME ANALYST) [facility] WBC 10.5(H) 3.8 - 9.9 K/cumm Hgb 16.0(H) 11.9 - 15.5 g/dL CERNER Hct 50.4(H) 35.6 - 45.5 % [facility] CH Plt 305 150 - 400 K/cumm [facility] CH MPV 12.0 9.1 - 12.3 fL CERNER RBC 5.99(H) 3.90 - 5.20 M/cumm [facility] CH MCV 84.1 81.3 - 96.4 fL [facility] CH MCH 26.7(L) 27.1 - 33.3 pg [facility] CH MCHC 31.7(L) 32.3 - 35.7 g/dL [facility] CH RDW CV 14.5 11.1 - 14.9 % [facility] CH RDW SD 44.1 35.7 - 48.1 fL [facility] NRBC abs 0.00 0.00 - 0.01 K/cumm C[facility]ER Blood 10/29/2024 1:31 PM METHODS TIME ANALYST 10/29/2024 1:42 PM METHODS TIME ANALYST Fran Swan MD LAB BLOOD ORDERABLES Final Result Performing Organization Address City/[facility]/ZIP Co de Phone Number FREDERICK JOINER [address] [place] [address] * (ABNORMAL) Comprehensive metabolic panel (10/29/2024 1:31 PM METHODS TIME ANALYST) Sodium 129(L) 135 - 145 mmol/L Potassium, [...] Units/L [facility]ER CH Blood 10/29/2024 1:31 PM METHODS TIME ANALYST 10/29/2024 1:43 PM METHODS TIME ANALYST us Fran Swan MD LAB BLOOD ORDERABLES Final Result FR[facility]ERICK JOINER [address] Department [place] [address] * XR Chest 1 Vw Portable (if patient condition/safety warrant portable) (10/29/2024 1:29 PM METHODS TIME ANALYST) Anatomical Region Laterality Modality Body, Chest N/A Computed Radiogr aphy 10/29/2024 2:03 PM METHODS TIME ANALYST Impressions 10/29/2024 2:03 PM METHODS TIME ANALYST No active disease. Electronically signed by: Stu Mejia M.D. Narrative 10/29/2024 2:03 PM METHODS TIME ANALYST EXAMINATION: XR CHEST 1 VIEW DATE: 10/29/2024 [...] * ECG 12 lead (10/29/2024 12:18 PM METHODS TIME ANALYST) 10/29/2024 12:1 8 PM METHODS TIME ANALYST Narrative [facility] - 10/29/2024 12:58 PM METHODS TIME ANALYST Vent Rate: 118 bpm RR Interval: 507 msec [place] Interval: 131 msec QRS Duration: 85 msec QT Interval: 313 msec QTC Interval: 383 msec P-R-T [place]: 35 - -47 - 69 degrees IMPRESSION: SINUS TACHYCARDIA LEFT AXIS DEVIATION [QRS AXIS < -30] POSSIBLE ANTERIOR MYOCARDIAL INFARCTION , OF INDETERMINATE AGE [30 ms Q WAVE IN V3/V4, OR R < 0.2 mV IN V4] ABNORMAL ECG Electronically Signed By: Rashaad Massey MD us Fran Swan MD ECG ORDERABLES Final Resu lt [facility] * (ABNORMAL) POCT glucose (10/29/2024 12:13 PM METHODS TIME ANALYST) Glucose, POC 313(H) 70 - 199 mg/dL Blood 10/29/2024 12:1 3 PM METHODS TIME ANALYST 10/29/2024 12:13 PM METHODS TIME ANALYST us Notinfile Unknown LAB POCT ORDERABLES - DEVICE F inal Result [place] Department [place] [address] * (ABNORMAL) Hemoglobin A1c (07/23/2024 9:07 AM METHODS TIME ANALYST) Hgb A1C 9.8(H) 4.0 - 5.6 % Comment:Testing performed by : [address] [address] Estimated Average Glucose 235 mg/dL FREDERICK VLAENCIA Comment: The ADA recommends reporting an estimated Average Glucose (eAG) with all Hemoglobin A1c results using the equation derived from a study of 507 normal and diabetic adults. Minority populations were underrepresented and children were not included. (Diabetes Care 31:6107-5358, 2008). The eAG is not equivalent to a fasting glucose. Testing performed by: [facility], [address] [place] [address]., [id number] Blood 07/23/2024 9:07 AM METHODS TIME ANALYST 07/23/2024 9:50 AM METHODS TIME ANALYST Juliano Chavarria MD LAB BLOOD ORDERABLES Final Result FR[facility]ERICK [address] [facility] Department [place] [address] from Last 3 Months or Most Recently Relevant to Health Maintenance Insurance [facility] MEDICARE HMO Advance Directives For more information, please contact: [phone] * Full Code (Latest Code Status on File) Date Activated Date Inactivated Comments 08/28/2024 7:07 AM 09/02/2024 6:00 PM * Full Code Date Activated Date Inactivated Comments 07/22/2024 3:20 AM 07/25/2024 3:36 PM Care Teams Cargo Surveyor Relationship Specialty Start Date End Date Sam Delgado MD PCP - General 05/15/08
--- OUTSIDE RECORDS SUMMARY | 2025-01-08 15:02 | XMS_ITS | Clinical Summary ---
Author Organization [facility] Address [address] [place] [address] Care Team Providers Care Associate Team Physician Name Role Phone Sam Delgado MD Primary Care Provider + [phone] Allergies Active Allergy Reactions Criticality Noted Date Comments Adhesive Tape-Silicones Rash Medium Penicillins Nausea & Vomiting Low Zobktmk-Qmp-Rdd Reductase Inhibitors Hives Medium Medications buPROPion XL [...] Department Care Team Description 10/29/2024 1:00 PM LIQUEFIED PETROLEUM GASFITTER - 10/29/2024 7:55 PM [facility] Emergency [facility] Emergency Department [address] [place] [address] Fran Swan MD Acute diverticulitis (Primary Dx); [...] drink = 0.6 oz pur e alcohol) [facility] [employer] Answer Date Recorded In the past 12 months has NCR, gas, oil, or water [employer] threatened to shut off services in your [...] 08/29/2024 How often do you attend chur or jain services? Never 08/29/2024 Do you belong to any clubs o r organizations such as druze groups, unions, fraternal or athletic groups, or [...] were you homeless or living in a senior living (including now)? No 08/29/2024 Personal Safety Answer Date Recorded Have you ever been in or are you currently in a harmful physical or emotional relationship or is someone making you feel afraid or unsafe? Denies 10/29/2024 Comments No Sex and Gender Information Value Date Recorded Sex Assigned at Not on file Legal Sex Female 12:42 AM LIQUEFIED PETROLEUM GASFITTER Gender Identity Not on file Sexual Orientation Not on file Obstetrics History Last Filed Vital Signs Vital Sign Reading Time Taken Comments Blood Pressure 141/83 10/29/2024 6:15 PM LIQUEFIED PETROLEUM GASFITTER Pulse 98 10/29/2024 6:15 PM LIQUEFIED PETROLEUM GASFITTER Temperature 36.4 C (97.6 F) 10/29/2024 12:12 PM LIQUEFIED PETROLEUM GASFITTER Respiratory Rate 17 10/29/2024 6:15 PM LIQUEFIED PETROLEUM GASFITTER Oxygen Saturation 99% 10/29/2024 6:15 PM LIQUEFIED PETROLEUM GASFITTER Inhaled Oxygen Concentration - - Weight 90.6 kg (199 lb 11.2 oz) 08/28/2024 6:04 AM LIQUEFIED PETROLEUM GASFITTER Height 152.4 cm (5') 08/28/2024 6:04 AM LIQUEFIED PETROLEUM GASFITTER Body Mass Index 39 08/28/2024 6:04 AM LIQUEFIED PETROLEUM GASFITTER Plan of Treatment Health Maintenance Due Date [...] 2024 09/14/2022, 09/14/2021, 04/27/2021, Additional history exists Hemoglobin A1C 01/20/2025 07/23/2024 Influenza Vaccine (Season Ended) 2025 09/14/19 22 Fall Risk Assessment 09/02/2025 09/02/2024 eGFR 10/29/2025 10/29/2024, 10/06, 09/02/2024, Additional history exists Procedures Procedure Name Priority Date/Time Associated Diagnosis Comments POCT GLUCOSE DEVICE Routine 10/29/2024 7 :07 PM LIQUEFIED PETROLEUM GASFITTER POCT GLUCOSE DEVICE Routine 10/29/2024 5 :[address] [facility] [address] ABDOMEN PELVIS W CONTRAST ED 10/29/2024 4:42 PM LIQUEFIED PETROLEUM GASFITTER EGFR STAT 10/29/2024 4:31 PM LIQUEFIED PETROLEUM GASFITTER BETA-HYDROXYBUTYRATE Routine 10/29/2024 4:31 PM LIQUEFIED PETROLEUM GASFITTER BLOOD GAS, VENOUS Routine 10/29/2024 4:3 1 PM LIQUEFIED PETROLEUM GASFITTER COMPREHENSIVE METABOLIC PANEL STAT 10/29/2024 4:31 PM LIQUEFIED PETROLEUM GASFITTER SEPSIS LACTATE WITH REFLEX Timed 10/29/2024 4:31 PM LIQUEFIED PETROLEUM GASFITTER POCT GLUCOSE DEVICE Routine 10/29/2024 4 :27 PM LIQUEFIED PETROLEUM GASFITTER NE CRITICAL CARE ILL/INJURED PATIENT INIT 30-74 MIN Routine 10/29/2024 3:59 PM LIQUEFIED PETROLEUM GASFITTER TROPONIN T HIGH-SENSITIVITY STAT 10/29/2024 3:29 PM LIQUEFIED PETROLEUM GASFITTER TROPONIN T HIGH-SENSITIVITY 2-HOUR Timed 10/29/2024 3:29 PM LIQUEFIED PETROLEUM GASFITTER LIPASE STAT 10/29/2024 3:29 PM LIQUEFIED PETROLEUM GASFITTER POCT GLUCOSE DEVICE Routine 10/29/2024 3 :28 PM LIQUEFIED PETROLEUM GASFITTER EGFR STAT 10/29/2024 1:31 PM LIQUEFIED PETROLEUM GASFITTER DIFFERENTIAL AUTO STAT 10/29/2024 1:3 1 PM LIQUEFIED PETROLEUM GASFITTER SEPSIS LACTATE WITH REFLEX STAT 10/29/2024 1:31 PM LIQUEFIED PETROLEUM GASFITTER COMPREHENSIVE METABOLIC PANEL STAT 10/29/2024 1:31 PM LIQUEFIED PETROLEUM GASFITTER CBC WITH AUTO DIFFERENTIAL STAT 10/29/2024 1:31 PM LIQUEFIED PETROLEUM GASFITTER RESPIRATORY PATHOGEN PANEL STAT 10/29/2024 1:31 PM LIQUEFIED PETROLEUM GASFITTER XR CHEST 1 VIEW ED 10/29/2024 1:29 PM LIQUEFIED PETROLEUM GASFITTER ECG 12-LEAD Routine 10/29/2024 12:18 PM LIQUEFIED PETROLEUM GASFITTER POCT GLUCOSE DEVICE Routine 10/29/2024 1 2:13 PM LIQUEFIED PETROLEUM GASFITTER HEMOGLOBIN A1C Routine 07/23/2024 9:07 AM LIQUEFIED PETROLEUM GASFITTER from Last 3 Months or Most Recently Relevant to Health Maintenance Results * POCT glucose (10/29/2024 7:07 PM LIQUEFIED PETROLEUM GASFITTER) Glucose, POC 168 70 - 199 mg/dL Blood 10/29/2024 7:07 PM LIQUEFIED PETROLEUM GASFITTER 10/29/2024 7:07 PM LIQUEFIED PETROLEUM GASFITTER Fran Swan MD LAB POCT ORDERABLES - DEANDRE CE Final Result Performing Organization Address [facility] Co de Phone Number FREDERICK JOINER [phone] [employer] [place], [place] [id number] * (ABNORMAL) POCT glucose (10/29/2024 5:53 PM LIQUEFIED PETROLEUM GASFITTER) Glucose, POC 257(H) 70 - 199 mg/dL Blood 10/29/2024 5:53 PM LIQUEFIED PETROLEUM GASFITTER 10/29/2024 5:53 PM LIQUEFIED PETROLEUM GASFITTER Fran Swan MD LAB POCT ORDERABLES - DEANDRE CE Final Result Performing Organization Address [facility] de Phone Number FREDERICK JOINER [phone] [place] [address] * CT Abdomen Pelvis W Contrast (10/29/2024 4:42 PM LIQUEFIED PETROLEUM GASFITTER) Anatomical Region Laterality Modality Body N/A Computed Tomogra phy 10/29/2024 5:25 PM LIQUEFIED PETROLEUM GASFITTER Impressions 10/29/2024 5:25 PM LIQUEFIED PETROLEUM GASFITTER MILD ACUTE SIGMOID DIVERTICULITIS Electronically signed by: Richard Alexis M.D. Narrative 10/29/2024 5:25 PM LIQUEFIED PETROLEUM GASFITTER EXAMINATION: CT ABDOMEN PELVIS W CONTRAST DATE: [...] Sepsis Lactate w/ Reflex (10/29/2024 4:31 PM LIQUEFIED PETROLEUM GASFITTER) Sepsis Lactate 1.7 0.7 - 2.0 mmol/L Blood 10/29/2024 4:31 PM LIQUEFIED PETROLEUM GASFITTER 10/29/2024 4:35 PM LIQUEFIED PETROLEUM GASFITTER Fran Swan MD LAB BLOOD ORDERABLES Final Result [facility] [id number] [place] [address] * eGFR (10/29/2024 4:31 PM LIQUEFIED PETROLEUM GASFITTER) eGFR 74 >=60 mL/min/1. 73 m2 Comment: [...] last reviewed 2021. Blood 10/29/2024 4:31 PM LIQUEFIED PETROLEUM GASFITTER 10/29/2024 4:35 PM LIQUEFIED PETROLEUM GASFITTER Fran Swan MD LAB BLOOD ORDERABLES Final Result Performing Organization Address City/[facility]/ZIP Co de Phone Number FREDERICK JOINER [phone] [place] [address] * (ABNORMAL) Beta-hydroxybutyrate (10/29/2024 4:31 PM LIQUEFIED PETROLEUM GASFITTER) Beta-Hydroxybut yrate 1.2(H) <=0.5 mmol/L Blood 10/29/2024 4:31 PM LIQUEFIED PETROLEUM GASFITTER 10/29/2024 4:35 PM LIQUEFIED PETROLEUM GASFITTER Fran Swan MD LAB BLOOD ORDERABLES Final Result Performing Organization Address [facility] de Phone Number FREDERICK JOINER [phone] [place] [address] * (ABNORMAL) Blood gas, venous (10/29/2024 4:31 PM LIQUEFIED PETROLEUM GASFITTER) pH, Venous 7.42 7.32 - 7.43 PCO2, [...] revised on 2017. Blood 10/29/2024 4:31 PM LIQUEFIED PETROLEUM GASFITTER 10/29/2024 4:35 PM LIQUEFIED PETROLEUM GASFITTER Fran Swan MD LAB BLOOD ORDERABLES Final Result Performing Organization Address [facility] Co de Phone Number FREDERICK JOINER [phone] [facility] [place] [address] * (ABNORMAL) Comprehensive metabolic panel (10/29/2024 4:31 PM LIQUEFIED PETROLEUM GASFITTER) Sodium 135 135 - 145 mmol/L Potassium, [...] Units/L [facility]ERNER CH Blood 10/29/2024 4:31 PM LIQUEFIED PETROLEUM GASFITTER 10/29/2024 4:35 PM LIQUEFIED PETROLEUM GASFITTER us Fran Swan MD LAB BLOOD ORDERABLES Final Result FREDERICK JOINER [address] [place] [address] * (ABNORMAL) POCT glucose (10/29/2024 4:27 PM LIQUEFIED PETROLEUM GASFITTER) Glucose, POC 227(H) 70 - 199 mg/dL Blood 10/29/2024 4:27 PM LIQUEFIED PETROLEUM GASFITTER 10/29/2024 4:27 PM LIQUEFIED PETROLEUM GASFITTER Fran Swan MD LAB POCT ORDERABLES - DEANDRE CE Final Result FREDERICK JOINER [address] [place] [address] * NE CRITICAL CARE ILL/INJURED PATIENT INIT 30-74 MIN (10/29/2024 3:59 PM LIQUEFIED PETROLEUM GASFITTER) Narrative Fran Swan MD - 10/29/2024 3:59 PM LIQUEFIED PETROLEUM GASFITTER Fran Swan MD 11/04/2024 4:49 AM Critical Care Performed by: Frna Swan MD Authorized by: Fran Swan MD [...] Troponin T high-sensitivity 2-hour (10/29/2024 3:29 PM LIQUEFIED PETROLEUM GASFITTER) Trop T hs See Comment <=14 Comment: Interpretive Data For further hscTnT resources including the diagnostic algorithm and an aid in interpretation, copy and paste this link: https://nrl.testcatLexdir.org/show/hsTrop Current Interpretive Data last revised 2020. Trop T hs interp See Comment FREDERICK Blood 10/29/2024 3:29 PM LIQUEFIED PETROLEUM GASFITTER 10/29/2024 3:31 PM LIQUEFIED PETROLEUM GASFITTER Fran Swan MD LAB BLOOD ORDERABLES Final Result Performing Organization Address [facility] Co de Phone Number FREDERICK [phone] [place] [address] * Troponin T high-sensitivity (10/29/2024 3:29 PM LIQUEFIED PETROLEUM GASFITTER) Pathologist [facility] [place] Trop T hs 13 <=14 ng/L Comment: Interpretive Data For further hscTnT resources including the diagnostic algorithm and an aid in interpretation, copy and paste this link: https://nrl.testcatLexdir.org/show/hsTrop Current Interpretive Data last revised 2020. Blood 10/29/2024 3:29 PM LIQUEFIED PETROLEUM GASFITTER 10/29/2024 4:56 PM LIQUEFIED PETROLEUM GASFITTER Fran Swan MD LAB BLOOD ORDERABLES Final Result Performing Organization Address [facility] Co de Phone Number [facility] [id number] [employer] [place], [place] [id number] * Lipase (10/29/2024 3:29 PM LIQUEFIED PETROLEUM GASFITTER) Pathologist [facility] [place] Lipase 20 10 - 99 Units/L Blood Venous blood specimen / Unknown 10/29/2024 3:29 PM LIQUEFIED PETROLEUM GASFITTER 10/29/2024 4:55 PM LIQUEFIED PETROLEUM GASFITTER Fran Swan MD LAB BLOOD ORDERABLES Final Result Performing Organization Address [facility] Co de Phone Number [facility] [phone] Department [address] [employer] [place], [place] [id number] * (ABNORMAL) POCT glucose (10/29/2024 3:28 PM LIQUEFIED PETROLEUM GASFITTER) Pathologist [facility] [place] Glucose, POC 288(H) 70 - 199 mg/dL Blood 10/29/2024 3:28 PM LIQUEFIED PETROLEUM GASFITTER 10/29/2024 3:28 PM LIQUEFIED PETROLEUM GASFITTER Fran Sawn MD LAB POCT ORDERABLES - DEANDRE CE Final Result FREDERICK JOINER [address] [place] [address] * (ABNORMAL) Sepsis Lactate w/ Reflex (10/29/2024 1:31 PM LIQUEFIED PETROLEUM GASFITTER) [facility] Sepsis Lactate 2.9(H) 0.7 - 2.0 mmol/L Blood 10/29/2024 1:31 PM LIQUEFIED PETROLEUM GASFITTER 10/29/2024 1:41 PM LIQUEFIED PETROLEUM GASFITTER Fran Swan MD LAB BLOOD ORDERABLES Final Result Performing Organization Address City/[facility]/ZIP Co de Phone Number FREDERICK JOINER [phone] [place] [address] * eGFR (10/29/2024 1:31 PM LIQUEFIED PETROLEUM GASFITTER) [facility] eGFR 67 >=60 mL/min/1. 73 m2 Comment: [...] last reviewed 2021. Blood 10/29/2024 1:31 PM LIQUEFIED PETROLEUM GASFITTER 10/29/2024 1:43 PM LIQUEFIED PETROLEUM GASFITTER us Fran Swan MD LAB BLOOD ORDERABLES Final Result [facility] [address] [place] [address] * (ABNORMAL) Differential, auto (10/29/2024 1:31 PM LIQUEFIED PETROLEUM GASFITTER) Neutrophil abs 5.7 1.5 - 6.5 K/cumm Imm gran abs 0.2(H) 0.0 - 0.1 K/cumm [facility] Lymphocyte abs 3.4(H) 0.8 - 3.3 K/cumm [facility] Monocyte abs 1.0(H) 0.2 - 0.8 K/cumm [facility] Eosinophil abs 0.1 0.0 - 0.5 K/cumm [facility] Basophil abs 0.1 0.0 - 0.1 K/cumm [facility] Neutrophil pct 54.8 % [facility] Comment: Interpretive Data Percent cell count reference ranges are not reported, since discordance with absolute values may lead to misinterpretation of CBC data. Current Interpretive Data was last revised on 2017. Imm gran pct 1.5 % [facility] Comment: Interpretive Data Percent cell count reference ranges are not reported, since discordance with absolute values may lead to misinterpretation of CBC data. Current Interpretive Data was last revised on 2017. Lymphocyte pct 32.5 % [facility] Comment: Interpretive Data Percent cell count reference ranges are not reported, since discordance with absolute values may lead to misinterpretation of CBC data. Current Interpretive Data was last revised on 2017. Monocyte pct 9.8 % [facility] Comment: Interpretive Data Percent cell count reference ranges are not reported, since discordance with absolute values may lead to misinterpretation of CBC data. Current Interpretive Data was last revised on 2017. Eosinophil pct 0.7 % [facility] Comment: Interpretive Data Percent cell count reference ranges are not reported, since discordance with absolute values may lead to misinterpretation of CBC data. Current Interpretive Data was last revised on 2017. Basophil pct 0.7 % [facility] Comment: Interpretive Data Percent cell count reference ranges are not reported, since discordance with absolute values may lead to misinterpretation of CBC data. Current Interpretive Data was last revised on 2017. Blood 10/29/2024 1:31 PM LIQUEFIED PETROLEUM GASFITTER 10/29/2024 1:42 PM LIQUEFIED PETROLEUM GASFITTER Fran Swan MD LAB BLOOD ORDERABLES Final Result [facility] [address] [place] [address] * Respiratory pathogen panel Nasopharyngeal (10/29/2024 1:31 PM LIQUEFIED PETROLEUM GASFITTER) Pathologist [facility] [place] Influenza A RNA Not Detected Not Detected Influenza B RNA Not Detected Not Detected [facility] RSV RNA Not Detected Not Detected [facility] COVID-19 RNA Not Detected Not Detected [facility] Coronavirus 229E RNA Not Detected Not Detected [facility] Coronavirus HKU1 RNA Not Detected Not Detected [facility] Coronavirus NL63 RNA Not Detected Not Detected [facility] Coronavirus OC43 RNA Not Detected Not Detected [facility] Adenovirus DNA Not Detected Not Detected [facility] Metapneumovirus RNA Not Detected Not Detected [facility] Rhinovirus/Enterov irus RNA Not Detected Not Detected [facility] Parainfluenza 1 RNA Not Detected Not Detected [facility] Parainfluenza 2 RNA Not Detected Not Detected [facility] Parainfluenza 3 RNA Not Detected Not Detected [facility] Parainfluenza 4 RNA Not Detected Not Detected [facility] B. pertussis DNA Not Detected Not Detected [facility] B. parapertussis DNA Not Detected Not Detected [facility] C. pneumoniae DNA Not Detected Not Detected [facility] M. pneumoniae DNA Not Detected Not Detected [facility] Comment: Interpretive Data The Fanzy FilmArray Respiratory Panel (RP2.1) assay is a [...] assay has FDA clearance for testing of INFORMATICS DEVELOPER swabs. The performance characteristics of this assay have been determined by [facility]. Current interpretive data was last revised on 2021. Nasopharyngeal 10/29/2024 1: 31 PM LIQUEFIED PETROLEUM GASFITTER 10/29/2024 1:42 PM LIQUEFIED PETROLEUM GASFITTER Jerman MACK [facility] 10/29/2024 2:37 PM LIQUEFIED PETROLEUM GASFITTER Is the Patient experiencing symptoms consistent with COVID?->Yes Surveillance testing for transplant patient?->No Fran Swan MD LAB MICROBIOLOGY - GENERAL ORDERABLES Final Result Performing Organization Address City/State/[facility] Co de Phone Number FREDERICK JOINER [address] [place] [address] CH * (ABNORMAL) CBC with auto differential (10/29/2024 1:31 PM LIQUEFIED PETROLEUM GASFITTER) Pathologist [facility] [place] WBC 10.5(H) 3.8 - 9.9 K/cumm Hgb 16.0(H) 11.9 - 15.5 g/dL [facility] Hct 50.4(H) 35.6 - 45.5 % [facility] Plt 305 150 - 400 K/cumm [facility] MPV 12.0 9.1 - 12.3 fL [facility] RBC 5.99(H) 3.90 - 5.20 M/cumm [facility] MCV 84.1 81.3 - 96.4 fL [facility] MCH 26.7(L) 27.1 - 33.3 pg [facility] MCHC 31.7(L) 32.3 - 35.7 g/dL [facility] RDW CV 14.5 11.1 - 14.9 % [facility] RDW SD 44.1 35.7 - 48.1 fL [facility] NRBC abs 0.00 0.00 - 0.01 K/cumm [facility] Blood 10/29/2024 1:31 PM LIQUEFIED PETROLEUM GASFITTER 10/29/2024 1:42 PM LIQUEFIED PETROLEUM GASFITTER Fran Swan MD LAB BLOOD ORDERABLES Final Result Performing Organization Address [facility]/ZIP Co de Phone Number FREDERICK JOINER [address] [place] [address] * (ABNORMAL) Comprehensive metabolic panel (10/29/2024 1:31 PM LIQUEFIED PETROLEUM GASFITTER) Pathologist [facility] [place] Sodium 129(L) 135 - 145 mmol/L Potassium, pl 4.8 3.3 - 4.9 mmol/L [facility] Chloride 94(L) 97 - 110 mmol/L [facility] CO2 14(L) 22 - 32 mmol/L [facility] Anion gap 21(H) 2 - 15 mmol/L [facility] BUN 20 6 - 25 mg/dL [facility] Creatinine 0.93 0.60 - 1.10 mg/dL [facility] Glucose 359(H) 70 - 199 mg/dL CERNER Comment: Interpretive Data Fasting glucose >/= 126 [...] Units/L [facility] Blood 10/29/2024 1:31 PM LIQUEFIED PETROLEUM GASFITTER 10/29/2024 1:43 PM LIQUEFIED PETROLEUM GASFITTER us Fran Swan MD LAB BLOOD ORDERABLES Final Result [facility] [address] [place] [address] * XR Chest 1 Vw Portable (if patient condition/safety warrant portable) (10/29/2024 1:29 PM LIQUEFIED PETROLEUM GASFITTER) Anatomical Region Laterality Modality Body, Chest N/A Computed Radiogr aphy 10/29/2024 2:03 PM LIQUEFIED PETROLEUM GASFITTER Impressions 10/29/2024 2:03 PM LIQUEFIED PETROLEUM GASFITTER No active disease. Electronically signed by: Stu Mejia M.D. Narrative 10/29/2024 2:03 PM LIQUEFIED PETROLEUM GASFITTER EXAMINATION: XR CHEST 1 VIEW DATE: 10/29/2024 [...] * ECG 12 lead (10/29/2024 12:18 PM LIQUEFIED PETROLEUM GASFITTER) 10/29/2024 12:1 8 PM LIQUEFIED PETROLEUM GASFITTER Narrative [facility] - 10/29/2024 12:58 PM LIQUEFIED PETROLEUM GASFITTER Vent Rate: 118 bpm RR Interval: 507 msec NE Interval: 131 msec QRS Duration: 85 msec QT Interval: 313 msec QTC Interval: 383 msec P-R-T [place]: 35 - -47 - 69 degrees IMPRESSION: SINUS TACHYCARDIA LEFT AXIS DEVIATION [QRS AXIS < -30] POSSIBLE ANTERIOR MYOCARDIAL INFARCTION , OF INDETERMINATE AGE [30 ms Q WAVE IN V3/V4, OR R < 0.2 mV IN V4] ABNORMAL ECG Electronically Signed By: Rashaad Massey MD Fran Swan MD ECG ORDERABLES Final Resu lt [facility] * (ABNORMAL) POCT glucose (10/29/2024 12:13 PM LIQUEFIED PETROLEUM GASFITTER) Glucose, POC 313(H) 70 - 199 mg/dL Blood 10/29/2024 12:1 3 PM LIQUEFIED PETROLEUM GASFITTER 10/29/2024 12:13 PM LIQUEFIED PETROLEUM GASFITTER Notinfile Unknown LAB POCT ORDERABLES - DEVICE F inal Result [facility]ICK [id number] [place] [address] * (ABNORMAL) Hemoglobin A1c (07/23/2024 9:07 AM LIQUEFIED PETROLEUM GASFITTER) Hgb A1C 9.8(H) 4.0 - 5.6 % Comment:Testing performed by : [facility], [address] [place] [address]., [id number] Estimated Average Glucose 235 mg/dL FREDERICK Comment: The ADA recommends reporting an estimated Average Glucose (eAG) with all Hemoglobin A1c results using the equation derived from a study of 507 normal and diabetic adults. Minority populations were underrepresented and children were not included. (Diabetes Care 31:5541-0379, 2008). The eAG is not equivalent to a fasting glucose. Testing performed by: [facility], [address] [place] [address]., [id number] Blood 07/23/2024 9:07 AM LIQUEFIED PETROLEUM GASFITTER 07/23/2024 9:50 AM LIQUEFIED PETROLEUM GASFITTER Juliano Chavarria MD LAB BLOOD ORDERABLES Final Result [facility]ICK [address] [facility] Department [place] [address] from Last 3 Months or Most Recently Relevant to Health Maintenance Insurance [facility] MEDICARE HMO Advance Directives For more information, please contact: [phone] * Full Code (Latest Code Status on File) Date Activated Date Inactivated Comments 08/28/2024 7:07 AM 09/02/2024 6:00 PM * Full Code Date Activated Date Inactivated Comments 07/22/2024 3:20 AM 07/25/2024 3:36 PM Care Teams Associate Team Physician Relationship Specialty Start Date End Date Sam Delgaod MD PCP - General 05/15/08
--- OUTSIDE RECORDS SUMMARY | 2025-01-08 15:02 | XMS_ITS | CONTINUITY OF CARE DOCUMENT ---
Author Name hanna ferreira Address Unknown Organization [facility] Address [address] [place] [address] Phone [phone] Care Team Providers Care Technical Staff Assistant Name Role Phone Zak Butt MD Unavailable [phone] Zak Butt MD Unavailable [phone] INSURANCE PROVIDERS Payer name Policy type / Coverage type [place] [employer] ID [employer] MEDICARE ADVANTAGE HMO-POS HMO [id number]
--- NOTE | 2025-01-08 15:05 | ED.SOB ---
HPI - SOB/Dyspnea General Chief Complaint: Shortness of Breath/Dyspnea <Addis Hernandez PA-C - Last Filed: 01/10/25 09:30> Stated Complaint: Severe left back pain, diff breathing <Addis Hernandez PA-C - Last Filed: 01/10/25 09:30> Time Seen by Provider: 01/08/25 15:05 <Addis Hernandez PA-C - Last Filed: 01/10/25 09:30> Focused HPI: This is a 69 year old female that presents to the ER for shortness of breath. Started today. Reports feeling lightheaded. Reports associated discomfort in the center of her back and chest. Reports a cough. Denies fevers. GENERAL: Uncomfortable, well-nourished, and in no acute distress. HEAD: Normocephalic, atraumatic. CHEST: Clear to auscultation. ?No respiratory distress. HEART: Regular rate and rhythm.? NEURO: ?Alert and oriented x3. Patient screened in triage and initial orders placed.? ?Additional care and disposition to be based upon?diagnostic testing and treatment. <Addis Hernandez PA-C - Last Filed: 01/10/25 09:30> History of Present Illness HPI Narrative: Agree with HPI. Reports back pain ongoing for 3 days. Worse with twisting physical movements. Said some abdominal fullness. She also reports that she has some shortness of breath associated with chest pressure. She thinks that may be related to an anxiety attack due to her persistent back pain. <Joe Mccollum MD - Last Filed: 01/08/25 18:49> Related Data Home Medications: Home Medications ?Medication ?Instructions ?Recorded ?Confirmed ?Last Taken ?Type clobetasol 0.05 % topical cream 1 applic topical DAILY PRN 06/27/22 12/23/24 04/29/24 20:00 History irritation <Addis Hernandez PA-C - Last Filed: 01/10/25 09:30> Allergies/Adverse Reactions: Allergies Allergy/AdvReac Type Severity Reaction Status Date / Time latex Allergy Mild Rash Verified 12/23/24 09:05 adhesive Allergy Unknown Unknown Verified 12/23/24 09:05 clarithromycin Allergy Unknown Unknown Verified 12/23/24 09:05 gabapentin Allergy Unknown Unknown Verified 12/23/24 09:05 metformin Allergy Unknown diarrhea Verified 12/23/24 09:05 neomycin Allergy Unknown Itching Verified 12/23/24 09:05 oseltamivir Allergy Unknown Unknown Verified 12/23/24 09:05 Penicillins Allergy Unknown Unknown Verified 12/23/24 09:05 Sulfa (Sulfonamide Allergy Unknown Unknown Verified 12/23/24 09:05 Antibiotics) <Addis Hernandez PA-C - Last Filed: 01/10/25 09:30> Review of Systems Review of Systems: All systems reviewed & are unremarkable except as noted in HPI and below <Joe Mccollum MD - Last Filed: 01/08/25 18:49> Constitutional: Constitutional: Reports no additional constitutional complaints <Joe Mccollum MD - Last Filed: 01/08/25 18:49> Cardiovascular: Cardiovascular: Reports no additional cardiovascular complaints <Joe Mccollum MD - Last Filed: 01/08/25 18:49> Respiratory: Respiratory: Reports no additional respiratory complaints <Joe Mccollum MD - Last Filed: 01/08/25 18:49> Gastrointestinal: Gastrointestinal: Reports no additional gastrointestinal complaints <Joe Mccollum MD - Last Filed: 01/08/25 18:49> Musculoskeletal: Musculoskeletal: Reports no additional musculoskeletal complaints <Joe Mccollum MD - Last Filed: 01/08/25 18:49> [facility] Past Medical History Medical History: Medical History (Updated 01/10/25 @ 09:30 by Addis Hernandez PA-C) Nasal pain Left ear impacted cerumen Nasal vestibulitis Fever Diverticulitis Frequent epistaxis Bleeding from both ears Anogenital lichen sclerosus Cellulitis and abscess of buttock Frequent falls Glucosuria Cristina infection Abscess Helicobacter positive gastritis Screening for osteoporosis Nasal lesion Skin exam for malignant neoplasm Degenerative disc disease, cervical Degenerative disc disease, lumbar Diverticulitis of sigmoid colon Lichen sclerosus Postmenopausal History of abnormal mammogram Ulnar neuropathy at elbow Pain aggravated by physical activity Forgetfulness Panic attacks Restless leg syndrome History of kidney stones Renal cyst, left Hypothyroidism Chronic diarrhea Allergic dermatitis Chronic pain disorder Essential (primary) hypertension Generalized anxiety disorder Irritable bowel syndrome with diarrhea Obstructive sleep apnea (adult) (pediatric) Likely obstructive sleep apnea however patient has not have polysomnogram Urinary incontinence in female Morbid (severe) obesity due to excess calories GERD without esophagitis Asthma Hepatic steatosis Hyperlipemia, mixed Type 2 diabetes mellitus with diabetic neuropathy Depression Fibromyalgia Basal cell carcinoma <Addis Hernandez PA-C - Last Filed: 01/10/25 09:30> Surgical History Surgical History: Surgical History History of sinus surgery History of tonsillectomy History of cervical discectomy History of colonoscopy with polypectomy History of dental surgery History of carpal tunnel surgery History of appendectomy (~1980) History of total hysterectomy with bilateral salpingo-oophorectomy (BSO) (~1980) History of cholecystectomy (~1995) History of lithotripsy (~2001) <Addis Hernandez PA-C - Last Filed: 01/10/25 09:30> Family History Family History: Family History Father Hypertension Cerebrovascular accident Family history of suicide, Onset Age: 72 Mother Family history of malignant neoplasm Family history of primary malignant neoplasm of liver, Onset Age: 50 Liver cancer Grandparent Cerebrovascular accident Sibling Patient's brother is in good health Patient's sister is Daughter Abscess Other Diabetes mellitus <Addis Hernandez PA-C - Last Filed: 01/10/25 09:30> Social History Social History: Social History (Updated 12/23/24 @ 09:10 by Rody Urena) Social History: Surrogate medical decision maker: Estefanía Gutierrez and Dalila Oconnor (daughters). Code status: Full code. Caffeine-daily Smoking status: Never smoker Second hand tobacco smoke exposure: Yes Alcohol intake: current Drinks per week: 1 Alcohol use details: Occasional Substance use: never Substance use type: does not use Other substance usage details: CBD Last use: cbd gummies Do You Feel Safe in your Home?: Yes Lack of Transportation: No Lack of Food: Never True Current Housing: I Have Housing Concerned About Future Housing: No Difficulty Paying Gas/Electric Bills: No Difficulty Paying for Meds: No Currently Unemployed: No Education: Associate Degree Difficulty w/ Childcare or Family Care: No Living arrangements: alone Additional living arrangements comments: fall 2022. 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 HEAD: Normocephalic, atraumatic. ENT: Mucous membranes moist. CHEST: Clear to auscultation. No respiratory distress. HEART: Regular rate and rhythm. Normal peripheral pulses. ABDOMEN: Soft, mild discomfort left lower quadrant, nondistended. EXTREMITIES: Normal range of motion. No edema. SKIN: Warm, dry, no rash. NEURO: Alert and oriented x3. PSYCH: Normal mood and affect. <Joe Mccollum MD - Last Filed: 01/08/25 18:49> Course Course Emergency Course: Patient resting comfortably. Informed of results. Discharge home. <Joe Mccollum MD - Last Filed: 01/08/25 18:49> Vital Signs Vital signs: Vital Signs Temperature 97.8 F 01/08/25 15:06 Pulse Rate 115 H 01/08/25 15:06 Respiratory Rate 18 01/08/25 15:06 Blood Pressure 175/92 H 01/08/25 15:06 Pulse Oximetry 97 01/08/25 15:06 Oxygen Delivery Room Air 01/08/25 15:06 Temperature 97.8 F 01/08/25 15:06 Pulse Rate 93 01/08/25 18:29 Respiratory Rate 18 01/08/25 18:29 Blood Pressure 168/95 H 01/08/25 18:29 Pulse Oximetry 96 01/08/25 18:29 Oxygen Delivery Room Air 01/08/25 15:46 <Addis Hernandez PA-C - Last Filed: 01/10/25 09:30> Vital Signs Temperature 97.8 F 01/08/25 15:06 Pulse Rate 115 H 01/08/25 15:06 Respiratory Rate 18 01/08/25 15:06 Blood Pressure 175/92 H 01/08/25 15:06 Pulse Oximetry 97 01/08/25 15:06 Oxygen Delivery Room Air 01/08/25 15:06 Temperature 97.8 F 01/08/25 15:06 Pulse Rate 93 01/08/25 18:29 Respiratory Rate 18 01/08/25 18:29 Blood Pressure 168/95 H 01/08/25 18:29 Pulse Oximetry 96 01/08/25 18:29 Oxygen Delivery Room Air 01/08/25 15:46 <Joe Mccollum MD - Last Filed: 01/08/25 18:49> MDM - SOB/Dyspnea Lab Data Result diagrams: 01/08/25 15:12 01/08/25 15:12 <Addis Hernandez PA-C - Last Filed: 01/10/25 09:30> Labs: Lab Results 01/08/25 01/08/25 Range/Units 15:11 15:12 WBC 10.3 H (4.5-10.0) K/mm3 RBC 5.18 (4.2-5.4) M/mm3 Hgb 13.4 (12.0-15.0) g/dL Hct 43.7 (37.0-47.0) % MCV 84.4 (80-100) fl MCH 25.9 L (26-34) pg MCHC 30.7 L (32-36) g/dl RDW 14.7 H (11.5-14.5) % Plt Count 225 (150-375) k/mm3 MPV 11.5 H (7.4-10.4) fl Immature Gran % (Auto) 0.8 H (0-0.5) % Neut % (Auto) 54.7 (45.5-73.1) % Lymph % (Auto) 35.0 (18.3-44.2) % Dolores % (Auto) 6.6 (2.6-8.5) % Eos % (Auto) 2.4 (0-4.4) % Baso % (Auto) 0.5 (0.2-1.2) % Lymph # (Auto) 3.61 H (0.9-3.2) K/mm3 Dolores # (Auto) 0.7 H (0.1-0.6) K/mm3 Eos # (Auto) 0.3 (0-0.3) K/mm3 Baso # (Auto) 0.1 (0.0-0.1) K/mm3 Abs Immat Gran (auto) 0.08 H (0.00-0.031) K/mm3 Absolute Neuts (auto) 5.7 (1.3-6.7) K/mm3 Absolute Nucleated RBC 0.000 (0.0-0.012) K/mm3 Nucleated RBC % 0.0 (0.0-0.2) % PT 12.4 (11.1-14.7) Seconds INR 0.9 APTT 23.7 (22.3-36.8) Seconds Sodium 139 (137-145) mmol/L Potassium 4.2 (3.4-5.0) mmol/L Chloride 106 (98-107) mmol/L Carbon Dioxide 25 (22-30) mmol/L Anion Gap 8 (4-12) mmol/L BUN 21 H (7-17) mg/dL Creatinine 0.74 (0.7-1.0) mg/dL Estim Creat Clear Calc 61 ml/min Estimated GFR > 60 (59 - ) Glucose 110 (65-110) mg/dL Calcium 9.8 (8.4-10.2) mg/dL Total Bilirubin 0.3 (0.2-1.3) mg/dL AST 16 (14-36) U/L ALT 15 (6-35) U/L Alkaline Phosphatase 93 (38-126) U/L Troponin I < 0.012 (0.000-0.034) ng/mL Total Protein 7.0 (6.3-8.2) g/dL Albumin 4.1 (3.5-5.1) g/dL Lipase 48 (23-300) U/L <Addis Hernandez PA-C - Last Filed: 01/10/25 09:30> Lab Results 01/08/25 01/08/25 Range/Units 15:11 15:12 WBC 10.3 H (4.5-10.0) K/mm3 RBC 5.18 (4.2-5.4) M/mm3 Hgb 13.4 (12.0-15.0) g/dL Hct 43.7 (37.0-47.0) % MCV 84.4 (80-100) fl MCH 25.9 L (26-34) pg MCHC 30.7 L (32-36) g/dl RDW 14.7 H (11.5-14.5) % Plt Count 225 (150-375) k/mm3 MPV 11.5 H (7.4-10.4) fl Immature Gran % (Auto) 0.8 H (0-0.5) % Neut % (Auto) 54.7 (45.5-73.1) % Lymph % (Auto) 35.0 (18.3-44.2) % Dolores % (Auto) 6.6 (2.6-8.5) % Eos % (Auto) 2.4 (0-4.4) % Baso % (Auto) 0.5 (0.2-1.2) % Lymph # (Auto) 3.61 H (0.9-3.2) K/mm3 Dolores # (Auto) 0.7 H (0.1-0.6) K/mm3 Eos # (Auto) 0.3 (0-0.3) K/mm3 Baso # (Auto) 0.1 (0.0-0.1) K/mm3 Abs Immat Gran (auto) 0.08 H (0.00-0.031) K/mm3 Absolute Neuts (auto) 5.7 (1.3-6.7) K/mm3 Absolute Nucleated RBC 0.000 (0.0-0.012) K/mm3 Nucleated RBC % 0.0 (0.0-0.2) % PT 12.4 (11.1-14.7) Seconds INR 0.9 APTT 23.7 (22.3-36.8) Seconds Sodium 139 (137-145) mmol/L Potassium 4.2 (3.4-5.0) mmol/L Chloride 106 (98-107) mmol/L Carbon Dioxide 25 (22-30) mmol/L Anion Gap 8 (4-12) mmol/L BUN 21 H (7-17) mg/dL Creatinine 0.74 (0.7-1.0) mg/dL Estim Creat Clear Calc 61 ml/min Estimated GFR > 60 (59 - ) Glucose 110 (65-110) mg/dL Calcium 9.8 (8.4-10.2) mg/dL Total Bilirubin 0.3 (0.2-1.3) mg/dL AST 16 (14-36) U/L ALT 15 (6-35) U/L Alkaline Phosphatase 93 (38-126) U/L Troponin I < 0.012 (0.000-0.034) ng/mL Total Protein 7.0 (6.3-8.2) g/dL Albumin 4.1 (3.5-5.1) g/dL Lipase 48 (23-300) U/L <Joe Mccollum MD - Last Filed: 01/08/25 18:49> Imaging Data Radiologist's impression: ITS Impressions Chest/Abdomen/Pelvis CTA 01/08/25 16:45 IMPRESSION: Bibasilar atelectasis. No pulmonary embolus. No aortic dissection. Findings within the rectosigmoid colon suggesting acute/early diverticulitis for which clinical correlation is needed. <Joe Mccollum MD - Last Filed: 01/08/25 18:49> ECG Data EKG #1: ECG completion date: 01/08/25 <Joe Mccollum MD - Last Filed: 01/08/25 18:49> ECG completion time: 15:06 <Joe Mccollum MD - Last Filed: 01/08/25 18:49> EKG Interpretation: tachycardia (114), sinus rhythm, normal QRS, normal QT and NL axis <Joe Mccollum MD - Last Filed: 01/08/25 18:49> Critical Care Time Critical Care Time Critical Care Time: No <Addis Hernandez PA-C - Last Filed: 01/10/25 09:30> Discharge Plan Discharge Clinical Impression: Diverticulitis, Anxiety Low back pain Qualifiers: Chronicity: acute Back pain laterality: midline Sciatica presence: without sciatica Qualified Code(s): M54.50 - Low back pain, unspecified <Addis Hernandez PA-C - Last Filed: 01/10/25 09:30> Patient Disposition: Home <CONRADO Wilson Last Filed: 01/10/25 09:30> Condition: Stable <CONRADO Wilson Last Filed: 01/10/25 09:30> Instructions: Antibiotic Form, Diverticulitis (ED), Low Back Strain (ED) <CONRADO Wilson Last Filed: 01/10/25 09:30> Additional Instructions: Return to the emergency department if you develop severe abdominal pain, severe nausea and vomiting to the point where you are unable to keep down fluids, if you develop chest pain or difficulty breathing, blood in your stool, dizziness or fainting, or if you develop any other new or concerning symptoms as these could be signs of more serious medical illness. Try to stay well hydrated. <Addis Hernandez PA-C - Last Filed: 01/10/25 09:30> Patient Language: Belarusian <Addis Hernandez PA-C - Last Filed: 01/10/25 09:30> Prescriptions: New ciprofloxacin HCl 500 mg tablet 500 mg PO Q12H Qty: 14 0RF metronidazole 500 mg tablet 500 mg PO Q8H Qty: 21 0RF hydrocodone-acetaminophen 5-325 mg tablet 1 tablet PO Q6H PRN (Reason: pain) Qty: 10 0RF No Action duloxetine [Cymbalta] 60 mg capsule,delayed release(DR/EC) 60 mg PO DAILY Qty: 180 0RF nystatin 100,000 unit/gram powder 1 applic topical TID PRN (Reason: Itching) Qty: 30 1RF glimepiride 4 mg tablet 4 mg PO QAM Qty: 30 3RF Rx Instructions: administer with breakfast (DME) blood-glucose meter [Accu-Chek Guide Glucose Meter] Misc See Rx Instructions .Route Qty: 1 0RF Rx Instructions: As directed for diabetes insulin glargine [Lantus U-100 Insulin] 100 unit/mL solution 15 unit SUBCUT HS Qty: 10 0RF mupirocin [Centany] 2 % ointment 1 applic topical BID 30 Days Qty: 15 0RF fluticasone propionate [Allergy Relief (fluticasone)] 50 mcg/actuation spray,suspension 2 spray intranasal DAILY 30 Days Qty: 16 2RF Rx Instructions: administer into each nostril clobetasol 0.05 % cream 1 applic TOPICAL DAILY PRN (Reason: irritation) Rx Instructions: vaginal area albuterol sulfate 90 mcg/actuation HFA aerosol inhaler 2 puff inhalation Q4H PRN (Reason: Shortness Of Breath) Qty: 8.5 5RF Rx Instructions: INHALE 2 PUFFS EVERY 4 HOURS NEEDED FOR SHORTNESS OF BREATH OR WHEEZING (DME) Accu-Chek Guide test strips Strip See Rx Instructions .ROUTE .MEDSUPPLY Qty: 100 0RF Rx Instructions: Check glucose bid for diabetes levothyroxine 88 mcg tablet 88 mcg PO DAILY Qty: 90 0RF albuterol sulfate 2.5 mg /3 mL (0.083 %) solution for nebulization 2.5 mg INHALATION Q4-6H PRN (Reason: shortness of breath or wheezing) Qty: 75 2RF insulin aspart U-100 [Novolog U-100 Insulin aspart] 100 unit/mL solution 1 sliding scale dose subcut USEASDIRECTD Qty: 10 1RF ondansetron HCl 4 mg tablet 4 mg PO Q8H PRN (Reason: nausea and vomiting) Qty: 30 2RF bupropion HCl 300 mg tablet extended release 24 hr See Rx Instructions .ROUTE .COMPLEX Qty: 90 1RF Dose Instruction: TAKE 1 TABLET BY MOUTH EVERY MORNING Rx Instructions: TAKE 1 TABLET BY MOUTH EVERY MORNING atenolol 50 mg tablet 75 mg PO HS Qty: 45 6RF Rx Instructions: Takes med before bed omeprazole 40 mg capsule,delayed release(DR/EC) 40 mg PO DAILY Qty: 30 2RF alprazolam 1 mg tablet 1 mg PO DAILY Qty: 30 0RF ropinirole 1 mg tablet See Rx Instructions .ROUTE .COMPLEX Qty: 270 0RF Dose Instruction: TAKE 1 TABLET BY MOUTH THREE TIMES A DAY Rx Instructions: TAKE 1 TABLET BY MOUTH THREE TIMES A DAY atorvastatin 40 mg tablet 40 mg PO DAILY Qty: 90 2RF cyclobenzaprine 10 mg tablet 10 mg PO TID PRN (Reason: muscle spasm) Qty: 30 0RF <Addis Hernandez PA-C - Last Filed: 01/10/25 09:30> Follow-up/Referrals: Mere Harris APRN [Primary Care Provider] - 1 Week <Addis Hernandez PA-C - Last Filed: 01/10/25 09:30>
[2025-01-08 15:06] VITALS: BP 175/92; PULSE 115; RESP 18; TEMP 36.6; O2SAT 97
[2025-01-08 15:27] LABS: Basophils Absolute Auto 0.1 K/mm3 (0.0-0.1); Basophils Percent Auto 0.5 % (0.2-1.2); Eosinophils Absolute Auto 0.3 K/mm3 (0-0.3); Eosinophils Percent Auto 2.4 % (0-4.4); Hematocrit 43.7 % (37.0-47.0); Hemoglobin 13.4 g/dL (12.0-15.0); Immature Granulocyte Absolute 0.08 K/mm3 (0.00-0.031); Immature Granulocyte Percent A 0.8 % (0-0.5); Lymphocytes Absolute Auto 3.61 K/mm3 (0.9-3.2); Mean Corpuscular HGB Conc 30.7 g/dl (32-36); Mean Corpuscular Hemoglobin 25.9 pg (26-34); Mean Corpuscular Volume 84.4 fl (80-100); Mean Platelet Volume 11.5 fl (7.4-10.4); Monocytes Absolute Auto 0.7 K/mm3 (0.1-0.6); Monocytes Percent Auto 6.6 % (2.6-8.5); Neutrophils Absolute Auto 5.7 K/mm3 (1.3-6.7); Neutrophils Percent Auto 54.7 % (45.5-73.1); Platelet Count Result 225 k/mm3 (150-375); Red Blood Count 5.18 M/mm3 (4.2-5.4); Red Cell Distribution Width 14.7 % (11.5-14.5); White Blood Count 10.3 K/mm3 (4.5-10.0)
[2025-01-08 15:35] LABS: INR 0.9; Prothrombin Time 12.4 Seconds (11.1-14.7)
[2025-01-08 15:36] LABS: Partial Thromboplastin Time 23.7 Seconds (22.3-36.8)
[2025-01-08 15:36] LABS: Alanine Aminotransferase 15 U/L (6-35); Albumin Level 4.1 g/dL (3.5-5.1); Alkaline Phosphatase 93 U/L (38-126); Anion Gap 8 mmol/L (4-12); Aspartate Amino Transferase 16 U/L (14-36); Bilirubin,Total 0.3 mg/dL (0.2-1.3); Blood Urea Nitrogen 21 mg/dL (7-17); Calcium 9.8 mg/dL (8.4-10.2); Carbon Dioxide 25 mmol/L (22-30); Chloride 106 mmol/L (98-107); Estimated CRCL calculation 61 ml/min; Estimated Glomerular Filt Rate > 60; Glucose 110 mg/dL (65-110); Lipase 48 U/L (23-300); Potassium 4.2 mmol/L (3.4-5.0); Sodium 139 mmol/L (137-145)
[2025-01-08 15:46] VITALS: O2SAT 97
[2025-01-08 15:48] LABS: Troponin I < 0.012 ng/mL (0.000-0.034)
--- OUTSIDE RECORDS SUMMARY | 2025-01-08 16:01 | XMS_ITS | Continuity of Care Document ---
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 [address] [place] , [address], [place], [address], [place]. tel:[phone] Family History Family Member Type Diagnosis Age At Onset No Information Payers Payer name Insurance type Covered democrat ID Authoriza tion(s) No Information Social History [...]
--- OUTSIDE RECORDS SUMMARY | 2025-01-08 16:01 | XMS_ITS | Referral Summary ---
Author Organization [facility] Address [address] [place] [address] Care Team Providers Care Front Office Developer Name Role Phone Sam Delgado MD Primary Care Provider [phone] Encounters Date Type Department Care Team Description 10/29/2024 1:00 PM HEADLIGHT ADJUSTER - 10/29/2024 7:55 PM [facility] Emergency [facility] Emergency Department [address] [place] [address] Fran Swan MD Acute diverticulitis (Primary Dx); Hyperglycemia; Nausea and vomiting, unspecified vomiting type; Abdominal pain Discharge Disposition: Discharge to home or self care from Last 3 Months Allergies Active Allergy Reactions Criticality Noted Date Comments Adhesive Tape-Silicones Rash Medium Penicillins Nausea & Vomiting Low Duhzfji-Cal-Npv Reductase Inhibitors Hives Medium Medications buPROPion XL [...] drink = 0.6 oz pur e alcohol) [facility] Utilities Answer Date Recorded In the [...] often do you attend chur ch or jewish services? Never 08/29/2024 Do you belong to any clubs o r organizations such as restorationist groups, unions, fraternal or athletic groups, or [...] any time in the past 12 m [facility], were you homeless or living in a snf (including now)? No 08/29/2024 Personal Safety Answer Date Recorded Have you ever been in or are you currently in a harmful physical or emotional relationship or is someone making you feel afraid or unsafe? Denies 10/29/2024 Comments No Sex and Gender Information Value Date Recorded Sex Assigned at Not on file Legal Sex Female 12:42 AM HEADLIGHT ADJUSTER Gender Identity Not on file Sexual Orientation Not on file Last Filed Vital Signs Vital Sign Reading Time Taken Comments Blood Pressure 141/83 10/29/2024 6:15 PM HEADLIGHT ADJUSTER Pulse 98 10/29/2024 6:15 PM HEADLIGHT ADJUSTER Temperature 36.4 C (97.6 F) 10/29/2024 12:12 PM HEADLIGHT ADJUSTER Respiratory Rate 17 10/29/2024 6:15 PM HEADLIGHT ADJUSTER Oxygen Saturation 99% 10/29/2024 6:15 PM HEADLIGHT ADJUSTER Inhaled Oxygen Concentration - - Weight 90.6 kg (199 lb 11.2 oz) 08/28/2024 6:04 AM HEADLIGHT ADJUSTER Height 152.4 cm (5') 08/28/2024 6:04 AM HEADLIGHT ADJUSTER Body Mass Index 39 08/28/2024 6:04 AM HEADLIGHT ADJUSTER Plan of Treatment Not on file Procedures Procedure Name Priority Date/Time Associated Diagnosis Comments POCT GLUCOSE DEVICE Routine 10/29/2024 7 :07 PM HEADLIGHT ADJUSTER POCT GLUCOSE DEVICE Routine 10/29/2024 5 :[address] ABDOMEN PELVIS W CONTRAST ED 10/29/2024 4:42 PM HEADLIGHT ADJUSTER EGFR STAT 10/29/2024 4:31 PM HEADLIGHT ADJUSTER BETA-HYDROXYBUTYRATE Routine 10/29/2024 4:31 PM HEADLIGHT ADJUSTER BLOOD GAS, VENOUS Routine 10/29/2024 4:3 1 PM HEADLIGHT ADJUSTER COMPREHENSIVE METABOLIC PANEL STAT 10/29/2024 4:31 PM HEADLIGHT ADJUSTER SEPSIS LACTATE WITH REFLEX Timed 10/29/2024 4:31 PM HEADLIGHT ADJUSTER POCT GLUCOSE DEVICE Routine 10/29/2024 4 :27 PM HEADLIGHT ADJUSTER LA CRITICAL CARE ILL/INJURED PATIENT INIT 30-74 MIN Routine 10/29/2024 3:59 PM HEADLIGHT ADJUSTER TROPONIN T HIGH-SENSITIVITY STAT 10/29/2024 3:29 PM HEADLIGHT ADJUSTER TROPONIN T HIGH-SENSITIVITY 2-HOUR Timed 10/29/2024 3:29 PM HEADLIGHT ADJUSTER LIPASE STAT 10/29/2024 3:29 PM HEADLIGHT ADJUSTER POCT GLUCOSE DEVICE Routine 10/29/2024 3 :28 PM HEADLIGHT ADJUSTER EGFR STAT 10/29/2024 1:31 PM HEADLIGHT ADJUSTER DIFFERENTIAL AUTO STAT 10/29/2024 1:3 1 PM HEADLIGHT ADJUSTER SEPSIS LACTATE WITH REFLEX STAT 10/29/2024 1:31 PM HEADLIGHT ADJUSTER COMPREHENSIVE METABOLIC PANEL STAT 10/29/2024 1:31 PM HEADLIGHT ADJUSTER CBC WITH AUTO DIFFERENTIAL STAT 10/29/2024 1:31 PM HEADLIGHT ADJUSTER RESPIRATORY PATHOGEN PANEL STAT 10/29/2024 1:31 PM HEADLIGHT ADJUSTER XR CHEST 1 VIEW ED 10/29/2024 1:29 PM HEADLIGHT ADJUSTER ECG 12-LEAD Routine 10/29/2024 12:18 PM HEADLIGHT ADJUSTER POCT GLUCOSE DEVICE Routine 10/29/2024 1 2:13 PM HEADLIGHT ADJUSTER HEMOGLOBIN A1C Routine 07/23/2024 9:07 AM HEADLIGHT ADJUSTER from Last 3 Months or Most Recently Relevant to Health Maintenance Results * POCT glucose (10/29/2024 7:07 PM HEADLIGHT ADJUSTER) Glucose, POC 168 70 - 199 mg/dL Blood 10/29/2024 7:07 PM HEADLIGHT ADJUSTER 10/29/2024 7:07 PM HEADLIGHT ADJUSTER Fran Swan MD LAB POCT ORDERABLES - DEANDRE CE Final Result Performing Organization Address [facility] Co de Phone Number FR[place] [phone] [place] [address] * (ABNORMAL) POCT glucose (10/29/2024 5:53 PM HEADLIGHT ADJUSTER) Glucose, POC 257(H) 70 - 199 mg/dL Blood 10/29/2024 5:53 PM HEADLIGHT ADJUSTER 10/29/2024 5:53 PM HEADLIGHT ADJUSTER Fran Swan MD LAB POCT ORDERABLES - DEANDRE CE Final Result Performing Organization Address [facility] [place] [address] [place] [address] * CT Abdomen Pelvis W Contrast (10/29/2024 4:42 PM HEADLIGHT ADJUSTER) Anatomical Region Laterality Modality Body N/A Computed Tomogra phy 10/29/2024 5:25 PM HEADLIGHT ADJUSTER Impressions 10/29/2024 5:25 PM HEADLIGHT ADJUSTER MILD ACUTE SIGMOID DIVERTICULITIS Electronically signed by: Richard Alexis M.D. Narrative 10/29/2024 5:25 PM HEADLIGHT ADJUSTER EXAMINATION: CT ABDOMEN PELVIS W CONTRAST DATE: [...] Sepsis Lactate w/ Reflex (10/29/2024 4:31 PM HEADLIGHT ADJUSTER) Sepsis Lactate 1.7 0.7 - 2.0 mmol/L Blood 10/29/2024 4:31 PM HEADLIGHT ADJUSTER 10/29/2024 4:35 PM HEADLIGHT ADJUSTER Fran Swan MD LAB BLOOD ORDERABLES Final Result [facility] [address] [facility] [place] [address] * eGFR (10/29/2024 4:31 PM HEADLIGHT ADJUSTER) eGFR 74 >=60 mL/min/1. 73 m2 Comment: [...] reviewed 2021. Blood 10/29/2024 4:3 1 PM HEADLIGHT ADJUSTER 10/29/2024 4:35 PM HEADLIGHT ADJUSTER Fran Swan MD LAB BLOOD ORDERABLES Final Result JULIANJENIFER [address] [place] [place] [address] * (ABNORMAL) Beta-hydroxybutyrate (10/29/2024 4:31 PM HEADLIGHT ADJUSTER) Beta-Hydroxybut yrate 1.2(H) <=0.5 mmol/L Blood 10/29/2024 4:31 PM HEADLIGHT ADJUSTER 10/29/2024 4:35 PM HEADLIGHT ADJUSTER Fran Swan MD LAB BLOOD ORDERABLES Final Result Performing Organization Address City/[facility]/ZIP Co de Phone Number FREDERICK JOINER [address] [place] [address] * (ABNORMAL) Blood gas, venous (10/29/2024 4:31 PM HEADLIGHT ADJUSTER) pH, Venous 7.42 7.32 - 7.43 PCO2, [...] revised on 2017. Blood 10/29/2024 4:31 PM HEADLIGHT ADJUSTER 10/29/2024 4:35 PM HEADLIGHT ADJUSTER Fran Swan MD LAB [place]LOOD [place] [address] [address] [facility] [place] [address] * (ABNORMAL) Comprehensive metabolic panel (10/29/2024 4:31 PM HEADLIGHT ADJUSTER) Sodium 135 135 - 145 mmol/L Potassium, [...] Units/L CERNER [facility] Blood 10/29/2024 4:31 PM HEADLIGHT ADJUSTER 10/29/2024 4:35 PM HEADLIGHT ADJUSTER Fran Swan MD LAB BLOOD ORDERABLES Final Result [facility] [id number] [place] [place] [address] * (ABNORMAL) POCT glucose (10/29/2024 4:27 PM HEADLIGHT ADJUSTER) Glucose, POC 227(H) 70 - 199 mg/dL Blood 10/29/2024 4:27 PM HEADLIGHT ADJUSTER 10/29/2024 4:27 PM HEADLIGHT ADJUSTER Fran Swan MD LAB POCT ORDERABLES - DEANDRE CE Final Result Performing Organization Address [facility]/ZIP Co de Phone Number FR[facility]ERICK [id number] [place] [address] * [place] CRITICAL CARE ILL/INJURED PATIENT INIT 30-74 MIN (10/29/2024 3:59 PM HEADLIGHT ADJUSTER) Narrative Fran Swan MD - 10/29/2024 3:59 PM HEADLIGHT ADJUSTER Fran Swan MD 11/04/2024 4:49 AM Critical [...] Troponin T high-sensitivity 2-hour (10/29/2024 3:29 PM HEADLIGHT ADJUSTER) Trop T hs See Comment <=14 Comment: Interpretive Data For further hscTnT resources including the diagnostic algorithm and an aid in interpretation, copy and paste this link: [email or web address] [email or web address]/show/[email or web address] Current Interpretive Data last revised 2020. Trop T hs interp See Comment FREDERICK JOINER Blood 10/29/2024 3:29 PM HEADLIGHT ADJUSTER 10/29/2024 3:31 PM HEADLIGHT ADJUSTER Fran Swan MD LAB BLOOD ORDERABLES Final Result JULIANJENIFER MARISEL [address] [place] [address] * Troponin T high-sensitivity (10/29/2024 3:29 PM HEADLIGHT ADJUSTER) Pathologist [facility] Trop T hs 13 <=14 ng/L Comment: Interpretive Data For further hscTnT resources including the diagnostic algorithm and an aid in interpretation, copy and paste this link: [email or web address] [email or web address]/show/[email or web address] Current Interpretive Data last revised 2020. Blood 10/29/2024 3:29 PM HEADLIGHT ADJUSTER 10/29/2024 4:56 PM HEADLIGHT ADJUSTER Fran Swan MD LAB BLOOD ORDERABLES Final Result JULIANJENIFER [address] [facility] [place] [address] * Lipase (10/29/2024 3:29 PM HEADLIGHT ADJUSTER) Lipase 20 10 - 99 Units/L Blood Venous blood specimen / Unknown 10/29/2024 3:29 PM HEADLIGHT ADJUSTER 10/29/2024 4:55 PM HEADLIGHT ADJUSTER Fran Swan MD LAB BLOOD ORDERABLES Final Result Performing Organization Address [facility] Co de Phone Number FREDERICK JOINER [id number] [facility] [place] [address] * (ABNORMAL) POCT glucose (10/29/2024 3:28 PM HEADLIGHT ADJUSTER) Pathologist [facility] Glucose, POC 288(H) 70 - 199 mg/dL Blood 10/29/2024 3:28 PM HEADLIGHT ADJUSTER 10/29/2024 3:28 PM HEADLIGHT ADJUSTER Fran Swan MD LAB POCT ORDERABLES - DEANDRE CE Final Result Performing Organization Address [facility] de Phone Number JULIANJENIFER [address] [place] [address] * (ABNORMAL) Sepsis Lactate w/ Reflex (10/29/2024 1:31 PM HEADLIGHT ADJUSTER) [facility] Sepsis Lactate 2.9(H) 0.7 - 2.0 mmol/L Blood 10/29/2024 1:31 PM HEADLIGHT ADJUSTER 10/29/2024 1:41 PM HEADLIGHT ADJUSTER Fran Swan MD LAB BLOOD ORDERABLES Final Result Performing Organization Address [facility] de Phone Number FR[facility]ERICK JOIN[address] [facility] [place] [address] * eGFR (10/29/2024 1:31 PM HEADLIGHT ADJUSTER) [facility] eGFR 67 >=60 mL/min/1. 73 m2 Comment: [...] last reviewed 2021. Blood 10/29/2024 1:31 PM HEADLIGHT ADJUSTER 10/29/2024 1:43 PM HEADLIGHT ADJUSTER us Fran Swan MD LAB BLOOD ORDERABLES Final Result [facility] [address] Department [place] [address] * (ABNORMAL) Differential, auto (10/29/2024 1:31 PM HEADLIGHT ADJUSTER) Neutrophil abs 5.7 1.5 - 6.5 K/cumm Imm gran abs 0.2(H) 0.0 - 0.1 K/cumm [facility] Lymphocyte abs 3.4(H) 0.8 - 3.3 K/cumm [facility] Monocyte abs 1.0(H) 0.2 - 0.8 K/cumm [facility] Eosinophil abs 0.1 0.0 - 0.5 K/cumm [facility] Basophil abs 0.1 0.0 - 0.1 K/cumm [facility] Neutrophil pct 54.8 % [facility] Comment: Interpretive Data Percent cell count reference ranges are not reported, since discordance with absolute values may lead to misinterpretation of CBC data. Current Interpretive Data was last revised on 2017. Imm gran pct 1.5 % [facility] Comment: Interpretive Data Percent cell count reference ranges are not reported, since discordance with absolute values may lead to misinterpretation of CBC data. Current Interpretive Data was last revised on 2017. Lymphocyte pct 32.5 % [facility] Comment: Interpretive Data Percent cell count [...] revised on 2017. Blood 10/29/2024 1:31 PM HEADLIGHT ADJUSTER 10/29/2024 1:42 PM HEADLIGHT ADJUSTER Fran Swan MD LAB BLOOD ORDERABLES Final Result [facility] [address] Department [facility] [place], [place] [id number] * Respiratory pathogen panel Nasopharyngeal (10/29/2024 1:31 PM HEADLIGHT ADJUSTER) Pathologist [facility] Influenza A RNA Not Detected Not Detected Influenza B RNA Not Detected Not Detected [facility] RSV RNA Not Detected Not Detected [facility] COVID-19 RNA Not Detected Not Detected [facility] Coronavirus 229E RNA Not Detected Not Detected [facility] Coronavirus HKU1 RNA Not Detected Not Detected [facility] Coronavirus NL63 RNA Not Detected Not Detected [facility] Coronavirus OC43 RNA Not Detected Not Detected [facility] Adenovirus DNA Not Detected Not Detected [facility] Metapneumovirus RNA Not Detected Not Detected [facility] Rhinovirus/Enterov irus RNA Not Detected Not Detected [facility] Parainfluenza 1 RNA Not Detected Not Detected [facility] Parainfluenza 2 RNA Not Detected Not Detected [facility] Parainfluenza 3 RNA Not Detected Not Detected [facility] Parainfluenza 4 RNA Not Detected Not Detected [facility] B. pertussis DNA Not Detected Not Detected [facility] B. parapertussis DNA Not Detected Not Detected [facility] C. pneumoniae DNA Not Detected Not Detected [facility] M. pneumoniae DNA Not Detected Not Detected [facility] Comment: Interpretive Data The PivotLink FilmArray Respiratory Panel (RP2.1) assay is a [...] assay has FDA clearance for testing of VELV[employer]ER swabs. The performance characteristics of this assay have been determined by [facility]. Current interpretive data was last revised on 2021. Nasopharyngeal 10/29/2024 1: 31 PM HEADLIGHT ADJUSTER 10/29/2024 1:42 PM HEADLIGHT ADJUSTER Narrative C[facility]ER [facility] - 10/29/2024 2:37 PM HEADLIGHT ADJUSTER Is the Patient experiencing symptoms consistent with COVID?->Yes Surveillance testing for transplant patient?->No Fran Swan MD LAB MICROBIOLOGY - GENERAL ORDERABLES Final Result Performing Organization Address City/[facility]/ZIP Co de Phone Number FR[facility]ERICK JOIN[address] [place] [address] CH * (ABNORMAL) CBC with auto differential (10/29/2024 1:31 PM HEADLIGHT ADJUSTER) [facility] WBC 10.5(H) 3.8 - 9.9 K/cumm Hgb [...] RDW SD 44.1 35.7 - 48.1 fL [facility] NRBC abs 0.00 0.00 - 0.01 K/cumm CERNER Blood 10/29/2024 1:31 PM HEADLIGHT ADJUSTER 10/29/2024 1:42 PM HEADLIGHT ADJUSTER Fran Swan MD LAB BLOOD ORDERABLES Final Result Performing Organization Address City/[facility]/ZIP Co de Phone Number FREDERICK JOINER [address] [place] [place] [address] * (ABNORMAL) Comprehensive metabolic panel (10/29/2024 1:31 PM HEADLIGHT ADJUSTER) Sodium 129(L) 135 - 145 mmol/L Potassium, [...] Units/L CERNER [facility] Blood 10/29/2024 1:31 PM HEADLIGHT ADJUSTER 10/29/2024 1:43 PM HEADLIGHT ADJUSTER us Fran Swan MD LAB BLOOD ORDERABLES Final Result [facility] JOINER [address] Department [place] [address] * XR Chest 1 Vw Portable (if patient condition/safety warrant portable) (10/29/2024 1:29 PM HEADLIGHT ADJUSTER) Anatomical Region Laterality Modality Body, Chest N/A Computed Radiogr aphy 10/29/2024 2:03 PM HEADLIGHT ADJUSTER Impressions 10/29/2024 2:03 PM HEADLIGHT ADJUSTER No active disease. Electronically signed by: Stu Mejia M.D. Narrative 10/29/2024 2:03 PM HEADLIGHT ADJUSTER EXAMINATION: XR CHEST 1 VIEW DATE: 10/29/2024 [...] * ECG 12 lead (10/29/2024 12:18 PM HEADLIGHT ADJUSTER) 10/29/2024 12:1 8 PM HEADLIGHT ADJUSTER Narrative [facility] - 10/29/2024 12:58 PM HEADLIGHT ADJUSTER Vent Rate: 118 bpm RR Interval: 507 msec LA Interval: 131 msec QRS Duration: 85 msec QT Interval: 313 msec QTC Interval: 383 msec P-R-T [place]: 35 - -47 - 69 degrees IMPRESSION: [...] * (ABNORMAL) POCT glucose (10/29/2024 12:13 PM HEADLIGHT ADJUSTER) Glucose, POC 313(H) 70 - 199 mg/dL Blood 10/29/2024 12:1 3 PM HEADLIGHT ADJUSTER 10/29/2024 12:13 PM HEADLIGHT ADJUSTER us Notinfile Unknown LAB POCT ORDERABLES - DEVICE F inal Result [facility] [address] [address] Department [place] [address] * (ABNORMAL) Hemoglobin A1c (07/23/2024 9:07 AM HEADLIGHT ADJUSTER) Hgb A1C 9.8(H) 4.0 - 5.6 % Comment:Testing performed by : [address] [address] Estimated Average Glucose 235 mg/dL FR[facility]ERICK VALENCIA Comment: The ADA recommends reporting an estimated Average Glucose (eAG) with all Hemoglobin A1c results using the equation derived from a study of 507 normal and diabetic adults. Minority populations were underrepresented and children were not included. (Diabetes Care 31:3027-1590, 2008). The eAG is not equivalent to a fasting glucose. Testing performed by: [facility], [address] [place] [address]., [address] Blood 07/23/2024 9:07 AM HEADLIGHT ADJUSTER 07/23/2024 9:50 AM HEADLIGHT ADJUSTER Juliano Chavarria MD LAB BLOOD ORDERABLES Final Result [facility] [address] [facility] Department [place] [address] from Last 3 Months or Most Recently Relevant to Health Maintenance Insurance [facility] MEDICARE HMO Advance Directives For more information, please contact: [phone] * Full Code (Latest Code Status on File) Date Activated Date Inactivated Comments 08/28/2024 7:07 AM 09/02/2024 6:00 PM * Full Code Date Activated Date Inactivated Comments 07/22/2024 3:20 AM 07/25/2024 3:36 PM Care Teams Front Office Developer Relationship Specialty Start Date End Date Sam Delgado MD PCP - General 05/15/08
--- OUTSIDE RECORDS SUMMARY | 2025-01-08 16:01 | XMS_ITS | Clinical Summary ---
Author Organization [facility] Address [address] [place] [address] Care Team Providers Care Construction Safety Manager Name Role Phone Sam Delgado MD Primary Care Provider + [phone] Allergies Active Allergy Reactions Criticality Noted Date Comments Adhesive Tape-Silicones Rash Medium Penicillins Nausea & Vomiting Low Njismtn-Fca-Akl Reductase Inhibitors Hives Medium Medications buPROPion XL [...] Department Care Team Description 10/29/2024 1:00 PM SHAKE SAWYER - 10/29/2024 7:55 PM [facility] Emergency [facility] [address] [place] [address] Fran Swan MD Acute diverticulitis (Primary Dx); [...] drink = 0.6 oz pur e alcohol) [facility] [email or web address] Answer Date Recorded In the past 12 months has [email or web address], gas, oil, or water [employer] threatened to shut off services in your [...] How often do you attend chur or taoism services? Never 08/29/2024 Do you belong to any clubs o r organizations such as pentecostalism groups, unions, fraternal or athletic groups, or [...] any time in the past 12 m [facility], were you homeless or living in a [place] health care facility (including now)? No 08/29/2024 Personal Safety Answer Date Recorded Have you ever been in or are you currently in a harmful physical or emotional relationship or is someone making you feel afraid or unsafe? Denies 10/29/2024 Comments No Sex and Gender Information Value Date Recorded Sex Assigned at Not on file Legal Sex Female 12:42 AM SHAKE SAWYER Gender Identity Not on file Sexual Orientation Not on file Obstetrics History Last Filed Vital Signs Vital Sign Reading Time Taken Comments Blood Pressure 141/83 10/29/2024 6:15 PM SHAKE SAWYER Pulse 98 10/29/2024 6:15 PM SHAKE SAWYER Temperature 36.4 C (97.6 F) 10/29/2024 12:12 PM SHAKE SAWYER Respiratory Rate 17 10/29/2024 6:15 PM SHAKE SAWYER Oxygen Saturation 99% 10/29/2024 6:15 PM SHAKE SAWYER Inhaled Oxygen Concentration - - Weight 90.6 kg (199 lb 11.2 oz) 08/28/2024 6:04 AM SHAKE SAWYER Height 152.4 cm (5') 08/28/2024 6:04 AM SHAKE SAWYER Body Mass Index 39 08/28/2024 6:04 AM SHAKE SAWYER Plan of Treatment Health Maintenance Due Date [...] GLUCOSE DEVICE Routine 10/29/2024 7 :07 PM SHAKE SAWYER POCT GLUCOSE DEVICE Routine 10/29/2024 5 :[address] ABDOMEN PELVIS W CONTRAST ED 10/29/2024 4:42 PM SHAKE SAWYER EGFR STAT 10/29/2024 4:31 PM SHAKE SAWYER BETA-HYDROXYBUTYRATE Routine 10/29/2024 4:31 PM SHAKE SAWYER BLOOD GAS, VENOUS Routine 10/29/2024 4:3 1 PM SHAKE SAWYER COMPREHENSIVE METABOLIC PANEL STAT 10/29/2024 4:31 PM SHAKE SAWYER SEPSIS LACTATE WITH REFLEX Timed 10/29/2024 4:31 PM SHAKE SAWYER POCT GLUCOSE DEVICE Routine 10/29/2024 4 :27 PM SHAKE SAWYER PA CRITICAL CARE ILL/INJURED PATIENT INIT 30-74 MIN Routine 10/29/2024 3:59 PM SHAKE SAWYER TROPONIN T HIGH-SENSITIVITY STAT 10/29/2024 3:29 PM SHAKE SAWYER TROPONIN T HIGH-SENSITIVITY 2-HOUR Timed 10/29/2024 3:29 PM SHAKE SAWYER LIPASE STAT 10/29/2024 3:29 PM SHAKE SAWYER POCT GLUCOSE DEVICE Routine 10/29/2024 3 :28 PM SHAKE SAWYER EGFR STAT 10/29/2024 1:31 PM SHAKE SAWYER DIFFERENTIAL AUTO STAT 10/29/2024 1:3 1 PM SHAKE SAWYER SEPSIS LACTATE WITH REFLEX STAT 10/29/2024 1:31 PM SHAKE SAWYER COMPREHENSIVE METABOLIC PANEL STAT 10/29/2024 1:31 PM SHAKE SAWYER CBC WITH AUTO DIFFERENTIAL STAT 10/29/2024 1:31 PM SHAKE SAWYER RESPIRATORY PATHOGEN PANEL STAT 10/29/2024 1:31 PM SHAKE SAWYER XR CHEST 1 VIEW ED 10/29/2024 1:29 PM SHAKE SAWYER ECG 12-LEAD Routine 10/29/2024 12:18 PM SHAKE SAWYER POCT GLUCOSE DEVICE Routine 10/29/2024 1 2:13 PM SHAKE SAWYER HEMOGLOBIN A1C Routine 07/23/2024 9:07 AM SHAKE SAWYER from Last 3 Months or Most Recently Relevant to Health Maintenance Results * POCT glucose (10/29/2024 7:07 PM SHAKE SAWYER) Glucose, POC 168 70 - 199 mg/dL Blood 10/29/2024 7:07 PM SHAKE SAWYER 10/29/2024 7:07 PM SHAKE SAWYER Fran Swan MD LAB POCT ORDERABLES - DEANDRE CE Final Result Performing Organization Address [facility] Co de Phone Number FREDERICK JOINER [address] [employer] [place], [place] [id number] * (ABNORMAL) POCT glucose (10/29/2024 5:53 PM SHAKE SAWYER) Glucose, POC 257(H) 70 - 199 mg/dL Blood 10/29/2024 5:53 PM SHAKE SAWYER 10/29/2024 5:53 PM SHAKE SAWYER Fran Swan MD LAB POCT ORDERABLES - DEANDRE CE Final Result Performing Organization Address [facility] de Phone Number FREDERICK JOINER [address] [place] [address] * CT Abdomen Pelvis W Contrast (10/29/2024 4:42 PM SHAKE SAWYER) Anatomical Region Laterality Modality Body N/A Computed Tomogra phy 10/29/2024 5:25 PM SHAKE SAWYER Impressions 10/29/2024 5:25 PM SHAKE SAWYER MILD ACUTE SIGMOID DIVERTICULITIS Electronically signed by: Richard Alexis M.D. Narrative 10/29/2024 5:25 PM SHAKE SAWYER EXAMINATION: CT ABDOMEN PELVIS W CONTRAST DATE: [...] Sepsis Lactate w/ Reflex (10/29/2024 4:31 PM SHAKE SAWYER) Sepsis Lactate 1.7 0.7 - 2.0 mmol/L Blood 10/29/2024 4:31 PM SHAKE SAWYER 10/29/2024 4:35 PM SHAKE SAWYER Fran Swan MD LAB BLOOD ORDERABLES Final Result [facility] [address] [place] [address] * eGFR (10/29/2024 4:31 PM SHAKE SAWYER) eGFR 74 >=60 mL/min/1. 73 m2 Comment: [...] last reviewed 2021. Blood 10/29/2024 4:31 PM SHAKE SAWYER 10/29/2024 4:35 PM SHAKE SAWYER Fran Swan MD LAB BLOOD ORDERABLES Final Result Performing Organization Address City/[facility]/ZIP Co de Phone Number FREDERICK JOINER [address] [place] [address] * (ABNORMAL) Beta-hydroxybutyrate (10/29/2024 4:31 PM SHAKE SAWYER) Beta-Hydroxybut yrate 1.2(H) <=0.5 mmol/L Blood 10/29/2024 4:31 PM SHAKE SAWYER 10/29/2024 4:35 PM SHAKE SAWYER Fran Swan MD LAB BLOOD ORDERABLES Final Result Performing Organization Address [facility] de Phone Number FREDERICK JOINER [address] [place] [address] * (ABNORMAL) Blood gas, venous (10/29/2024 4:31 PM SHAKE SAWYER) pH, Venous 7.42 7.32 - 7.43 PCO2, [...] revised on 2017. Blood 10/29/2024 4:31 PM SHAKE SAWYER 10/29/2024 4:35 PM SHAKE SAWYER Fran Swan MD LAB BLOOD ORDERABLES Final Result Performing Organization Address [facility] Co de Phone Number FREDERICK JOINER [address] [facility] [place] [address] * (ABNORMAL) Comprehensive metabolic panel (10/29/2024 4:31 PM SHAKE SAWYER) Sodium 135 135 - 145 mmol/L Potassium, [...] Units/L CERNER CH Blood 10/29/2024 4:31 PM SHAKE SAWYER 10/29/2024 4:35 PM SHAKE SAWYER us Fran Swan MD LAB BLOOD ORDERABLES Final Result FREDERICK JOINER [address] [place] [address] * (ABNORMAL) POCT glucose (10/29/2024 4:27 PM SHAKE SAWYER) Glucose, POC 227(H) 70 - 199 mg/dL Blood 10/29/2024 4:27 PM SHAKE SAWYER 10/29/2024 4:27 PM SHAKE SAWYER Fran Swan MD LAB POCT ORDERABLES - DEANDRE CE Final Result FREDERICK JOINER [address] [place] [address] * PA CRITICAL CARE ILL/INJURED PATIENT INIT 30-74 MIN (10/29/2024 3:59 PM SHAKE SAWYER) Narrative Fran Swan MD - 10/29/2024 3:59 PM SHAKE SAWYER Fran Swan MD 11/04/2024 4:49 AM Critical [...] Troponin T high-sensitivity 2-hour (10/29/2024 3:29 PM SHAKE SAWYER) Trop T hs See Comment <=14 Comment: Interpretive Data For further hscTnT resources including the diagnostic algorithm and an aid in interpretation, copy and paste this link: https://nrl.testcatTriviala.org/show/hsTrop Current Interpretive Data last revised 2020. Trop T hs interp See Comment FREDERICK Blood 10/29/2024 3:29 PM SHAKE SAWYER 10/29/2024 3:31 PM SHAKE SAWYER Fran Swan MD LAB BLOOD ORDERABLES Final Result Performing Organization Address [facility] Co de Phone Number FREDERICK [address] [place] [address] * Troponin T high-sensitivity (10/29/2024 3:29 PM SHAKE SAWYER) Pathologist [facility] Trop T hs 13 <=14 ng/L Comment: Interpretive Data For further hscTnT resources including the diagnostic algorithm and an aid in interpretation, copy and paste this link: https://nrl.testcatTriviala.org/show/[email or web address] Current Interpretive Data last revised 2020. Blood 10/29/2024 3:29 PM SHAKE SAWYER 10/29/2024 4:56 PM SHAKE SAWYER Fran Swan MD LAB BLOOD ORDERABLES Final Result Performing Organization Address [facility] Co de Phone Number [facility] [address] [employer] [place], [place] [id number] * Lipase (10/29/2024 3:29 PM SHAKE SAWYER) Pathologist [facility] Lipase 20 10 - 99 Units/L Blood Venous blood specimen / Unknown 10/29/2024 3:29 PM SHAKE SAWYER 10/29/2024 4:55 PM SHAKE SAWYER Fran Swan MD LAB BLOOD ORDERABLES Final Result Performing Organization Address [facility] Co de Phone Number [facility] [address] [employer] [place], [place] [id number] * (ABNORMAL) POCT glucose (10/29/2024 3:28 PM SHAKE SAWYER) Pathologist [facility] Glucose, POC 288(H) 70 - 199 mg/dL Blood 10/29/2024 3:28 PM SHAKE SAWYER 10/29/2024 3:28 PM SHAKE SAWYER Fran Swan MD LAB POCT ORDERABLES - DEANDRE CE Final Result FREDERICK JOINER [address] [place] [address] * (ABNORMAL) Sepsis Lactate w/ Reflex (10/29/2024 1:31 PM SHAKE SAWYER) [facility] Sepsis Lactate 2.9(H) 0.7 - 2.0 mmol/L Blood 10/29/2024 1:31 PM SHAKE SAWYER 10/29/2024 1:41 PM SHAKE SAWYER Fran Swan MD LAB BLOOD ORDERABLES Final Result Performing Organization Address City/[facility]/ZIP Co de Phone Number FREDERICK JOINER [address] [place] [address] * eGFR (10/29/2024 1:31 PM SHAKE SAWYER) [facility] eGFR 67 >=60 mL/min/1. 73 m2 Comment: [...] last reviewed 2021. Blood 10/29/2024 1:31 PM SHAKE SAWYER 10/29/2024 1:43 PM SHAKE SAWYER us Fran Swan MD LAB BLOOD ORDERABLES Final Result [facility] [address] [place] [address] * (ABNORMAL) Differential, auto (10/29/2024 1:31 PM SHAKE SAWYER) Neutrophil abs 5.7 1.5 - 6.5 K/cumm Imm gran abs 0.2(H) 0.0 - 0.1 K/cumm [facility] Lymphocyte abs 3.4(H) 0.8 - 3.3 K/cumm [facility] Monocyte abs 1.0(H) 0.2 - 0.8 K/cumm [facility] Eosinophil abs 0.1 0.0 - 0.5 K/cumm [facility] Basophil abs 0.1 0.0 - 0.1 K/cumm [facility] Neutrophil pct 54.8 % [facility] Comment: Interpretive Data Percent cell count reference ranges are not reported, since discordance with absolute values may lead to misinterpretation of CBC data. Current Interpretive Data was last revised on 2017. Imm gran pct 1.5 % [facility] Comment: Interpretive Data Percent cell count reference ranges are not reported, since discordance with absolute values may lead to misinterpretation of CBC data. Current Interpretive Data was last revised on 2017. Lymphocyte pct 32.5 % [facility] Comment: Interpretive Data Percent cell count reference ranges are not reported, since discordance with absolute values may lead to misinterpretation of CBC data. Current Interpretive Data was last revised on 2017. Monocyte pct 9.8 % [facility] Comment: Interpretive Data Percent cell count reference ranges are not reported, since discordance with absolute values may lead to misinterpretation of CBC data. Current Interpretive Data was last revised on 2017. Eosinophil pct 0.7 % [facility] Comment: Interpretive Data Percent cell count reference ranges are not reported, since discordance with absolute values may lead to misinterpretation of CBC data. Current Interpretive Data was last revised on 2017. Basophil pct 0.7 % [facility] Comment: Interpretive Data Percent cell count reference ranges are not reported, since discordance with absolute values may lead to misinterpretation of CBC data. Current Interpretive Data was last revised on 2017. Blood 10/29/2024 1:31 PM SHAKE SAWYER 10/29/2024 1:42 PM SHAKE SAWYER Fran Swan MD LAB BLOOD ORDERABLES Final Result [facility] [address] [place] [address] * Respiratory pathogen panel Nasopharyngeal (10/29/2024 1:31 PM SHAKE SAWYER) Pathologist [facility] Influenza A RNA Not Detected Not Detected Influenza B RNA Not Detected Not Detected [facility] RSV RNA Not Detected Not Detected [facility] COVID-19 RNA Not Detected Not Detected [facility] Coronavirus 229E RNA Not Detected Not Detected [facility] Coronavirus HKU1 RNA Not Detected Not Detected [facility] Coronavirus NL63 RNA Not Detected Not Detected [facility] Coronavirus OC43 RNA Not Detected Not Detected [facility] Adenovirus DNA Not Detected Not Detected [facility] Metapneumovirus RNA Not Detected Not Detected [facility] Rhinovirus/Enterov irus RNA Not Detected Not Detected [facility] Parainfluenza 1 RNA Not Detected Not Detected [facility] Parainfluenza 2 RNA Not Detected Not Detected [facility] Parainfluenza 3 RNA Not Detected Not Detected [facility] Parainfluenza 4 RNA Not Detected Not Detected [facility] B. pertussis DNA Not Detected Not Detected [facility] B. parapertussis DNA Not Detected Not Detected [facility] C. pneumoniae DNA Not Detected Not Detected [facility] M. pneumoniae DNA Not Detected Not Detected [facility] Comment: Interpretive Data The [employer] Film[employer] Respiratory Panel (RP2.1) assay is a [...] assay has FDA clearance for testing of CLAY PUDDLER swabs. The performance characteristics of this assay have been determined by [facility]. Current interpretive data was last revised on 2021. Nasopharyngeal 10/29/2024 1: 31 PM SHAKE SAWYER 10/29/2024 1:42 PM SHAKE SAWYER Jerman [facility] 10/29/2024 2:37 PM SHAKE SAWYER Is the Patient experiencing symptoms consistent with COVID?->Yes Surveillance testing for transplant patient?->No Fran Swan MD LAB MICROBIOLOGY - GENERAL ORDERABLES Final Result Performing Organization Address City/State/[facility] Co de Phone Number FREDERICK JOINER [address] [place] [address] CH * (ABNORMAL) CBC with auto differential (10/29/2024 1:31 PM SHAKE SAWYER) Pathologist [facility] WBC 10.5(H) 3.8 - 9.9 K/cumm Hgb [...] K/cumm [facility] Blood 10/29/2024 1:31 PM SHAKE SAWYER 10/29/2024 1:42 PM SHAKE SAWYER Fran Swan MD LAB BLOOD ORDERABLES Final Result Performing Organization Address [facility]/ZIP Co de Phone Number FREDERICK JOINER [address] [place] [address] * (ABNORMAL) Comprehensive metabolic panel (10/29/2024 1:31 PM SHAKE SAWYER) Pathologist [facility] Sodium 129(L) 135 - 145 mmol/L Potassium, [...] Units/L CERNER CH Blood 10/29/2024 1:31 PM SHAKE SAWYER 10/29/2024 1:43 PM SHAKE SAWYER us Fran Swan MD LAB BLOOD ORDERABLES Final Result [facility] [address] [place] [address] * XR Chest 1 Vw Portable (if patient condition/safety warrant portable) (10/29/2024 1:29 PM SHAKE SAWYER) Anatomical Region Laterality Modality Body, Chest N/A Computed Radiogr aphy 10/29/2024 2:03 PM SHAKE SAWYER Impressions 10/29/2024 2:03 PM SHAKE SAWYER No active disease. Electronically signed by: Stu Mejia M.D. Narrative 10/29/2024 2:03 PM SHAKE SAWYER EXAMINATION: XR CHEST 1 VIEW DATE: 10/29/2024 [...] * ECG 12 lead (10/29/2024 12:18 PM SHAKE SAWYER) 10/29/2024 12:1 8 PM SHAKE SAWYER Narrative [facility] - 10/29/2024 12:58 PM SHAKE SAWYER Vent Rate: 118 bpm RR Interval: 507 msec PA Interval: 131 msec QRS Duration: 85 msec QT Interval: 313 msec QTC Interval: 383 msec P-R-T [place]: 35 - -47 - 69 degrees IMPRESSION: SINUS TACHYCARDIA LEFT AXIS DEVIATION [QRS AXIS < -30] POSSIBLE ANTERIOR MYOCARDIAL INFARCTION , OF INDETERMINATE AGE [30 ms Q WAVE IN V3/V4, OR R < 0.2 mV IN V4] ABNORMAL ECG Electronically Signed By: Rashaad Massey MD Fran Swan MD ECG ORDERABLES Final Resu lt [facility] [place] [facility] * (ABNORMAL) POCT glucose (10/29/2024 12:13 PM SHAKE SAWYER) Glucose, POC 313(H) 70 - 199 mg/dL Blood 10/29/2024 12:1 3 PM SHAKE SAWYER 10/29/2024 12:13 PM SHAKE SAWYER Notinfile Unknown LAB POCT ORDERABLES - DEVICE F inal Result FREDERICK [address] [place] [address] * (ABNORMAL) Hemoglobin A1c (07/23/2024 9:07 AM SHAKE SAWYER) Hgb A1C 9.8(H) 4.0 - 5.6 % Comment:Testing performed by : [facility], [address] [place] [address]., [id number] Estimated Average Glucose 235 mg/dL FREDERICK Comment: The ADA recommends reporting an estimated Average Glucose (eAG) with all Hemoglobin A1c results using the equation derived from a study of 507 normal and diabetic adults. Minority populations were underrepresented and children were not included. (Diabetes Care 31:5452-3943, 2008). The eAG is not equivalent to a fasting glucose. Testing performed by: [facility], [address] [place] [address]., [id number] Blood 07/23/2024 9:07 AM SHAKE SAWYER 07/23/2024 9:50 AM SHAKE SAWYER Juliano Chavarria MD LAB BLOOD ORDERABLES Final Result FREDERICK [address] [facility] [place] [address] from Last 3 Months or Most Recently Relevant to Health Maintenance Insurance [facility] MEDICARE HMO Advance Directives For more information, please contact: [phone] * Full Code (Latest Code Status on File) Date Activated Date Inactivated Comments 08/28/2024 7:07 AM 09/02/2024 6:00 PM * Full Code Date Activated Date Inactivated Comments 07/22/2024 3:20 AM 07/25/2024 3:36 PM Care Teams Construction Safety Manager Relationship Specialty Start Date End Date Sam Delgado MD PCP - General 05/15/08
--- OUTSIDE RECORDS SUMMARY | 2025-01-08 16:01 | XMS_ITS | Clinical Summary ---
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
--- OUTSIDE RECORDS SUMMARY | 2025-01-08 16:01 | XMS_ITS | Clinical Summary ---
Author Organization [facility] Address [address] [place] [address] Care Team Providers Care Income Tax Consultant Name Role Phone Sam Delgado MD Primary Care Provider [phone] Source Comments [facility],non-[facility] Affiliates and Associated Physician Practices is amultiple site organization consisting of ambulatory clinics and hospital sitesin [place], [place], [place] and [place]. This disclosure is being madepursuant to the Care Everywhere program and may not contain all information available regarding this patient. Last updated 18.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
[2025-01-08 17:34] VITALS: BP 160/96; PULSE 98; RESP 23; O2SAT 98
[2025-01-08 18:29] VITALS: BP 168/95; PULSE 93; RESP 18; O2SAT 96
== END 2025-01-08 19:00 | disposition home or self-care (01) ==
PROVIDERS: Physician Assistant; Emergency Provider Emergency Medicine; PCP Nurse Practitioner Adult Health
DX: K57.32 Diverticulitis of large intestine without perforation or abscess without bleeding (principal); M54.50 Low back pain, unspecified; F41.1 Generalized anxiety disorder; I10 Essential (primary) hypertension; J45.909 Unspecified asthma, uncomplicated; E03.9 Hypothyroidism, unspecified; E78.2 Mixed hyperlipidemia; E11.40 Type 2 diabetes mellitus with diabetic neuropathy, unspecified; K58.0 Irritable bowel syndrome with diarrhea; K21.9 Gastro-esophageal reflux disease without esophagitis; M51.369 Other intervertebral disc degeneration, lumbar region without mention of lumbar back pain or lower extremity pain; M50.30 Other cervical disc degeneration, unspecified cervical region; M79.7 Fibromyalgia; G47.33 Obstructive sleep apnea (adult) (pediatric); G25.81 Restless legs syndrome; F32.A Depression, unspecified; Z85.828 Personal history of other malignant neoplasm of skin; Z87.442 Personal history of urinary calculi; Z86.0100 Personal history of colon polyps, unspecified; Z90.710 Acquired absence of both cervix and uterus; Z90.79 Acquired absence of other genital organ(s); Z90.722 Acquired absence of ovaries, bilateral; Z90.49 Acquired absence of other specified parts of digestive tract; Z79.899 Other long term (current) drug therapy; Z79.84 Long term (current) use of oral hypoglycemic drugs; Z79.4 Long term (current) use of insulin; Z77.22 Contact with and (suspected) exposure to environmental tobacco smoke (acute) (chronic)
CPT/HCPCS: 36415; 71275; 74174; 80053; 83690; 84484; 85025; 85610; 85730; 93005; 99284; Q9967

== ENCOUNTER 2025-02-11 11:15 | Emergency (ER) | payer MEDICARE, SELFPAY ==
--- NOTE | ~2025-02-11 | XR_ITS ---
EXAMINATION: XR chest 2V DATE: 02/11/2025 12:55 INDICATION: Cough and shortness of breath TECHNIQUE: PA and lateral views of the chest were obtained. COMPARISON: Chest radiograph dated 06/08/[address] dated 01/08/2025 FINDINGS: Unchanged mild atelectasis/scarring in the lingula along side a small left pericardial fat pad. No ot her airspace opacities, pulmonary edema, pleural effusion or pneumothorax. Size is normal. Lower cerv ical anterior spinal fusion with anterior plate and screw fixation at C5-C7. IMPRESSION: 1. Mild lingular atelectasis/scarring. No other acute cardiopulmonary disease. Reviewed, dictated and finalized at location A.
--- NOTE | ~2025-02-11 | CT_ITS ---
Clinical Indication: Shortness of breath CT Scan of the Chest with Contrast: Technique: Contiguous sections were acquired throughout the chest after intravenous administration of 100 cc of Omnipaque 350. Dose reduction technique was used on this scan by utilizing automated expos ure control and iterative reconstruction technique. The dose-length product (DLP) was 490.46 mGy-cm. COMPARISON: 01/08/2025 Findings: There is no evidence of any significant mediastinal, hilar or axillary lymphadenopathy. There is no f illing defect in the pulmonary arterial tree to suggest pulmonary embolus. There is no evidence of ao rtic dissection or aneurysm. There is no evidence of pleural or pericardial effusion. Stable 6 mild posterior right upper lobe pulmonary nodule. Images through the upper abdomen reveal no abnormalities. Impression: No evidence of pulmonary embolus, aortic dissection, or aortic aneurysm. Stable right upper lobe pulmonary nodule. Reviewed, dictated and finalized at [facility]. Impression: No evidence of pulmonary embolus, aortic dissection, or aortic aneurysm. Stable right upper lobe pulmonary nodule.
[2025-02-11 11:17] VITALS: BP 176/84; PULSE 103; RESP 20; TEMP 36.6; O2SAT 96
--- NOTE | 2025-02-11 11:17 | ECG_ITS ---
Test Date: 2025-02-11 11:20:50 Measurements Intervals [place] Rate: 103 P: 72 W[place]: 138 QRS: -12 QRSD: 78 T: 35 QT: 341 QTc: 446 Interpretive Statements SINUS TACHYCARDIA CONSIDER ANTERIOR INFARCT, AGE INDETERMINATE INFERIOR INFARCT, AGE INDETERMINATE BASELINE ARTIFACT- I, II, III, AVR, AVL, AVF, V1-V6 ABNORMAL ECG Compared to ECG 01/08/2025 15:06:30 HEART RATE HAS DECREASED Electronically Signed On 02-11-2025 11:46:44 CDT by Alvarez Nunes D.O.
[2025-02-11 11:24] VITALS: O2SAT 97
[2025-02-11 11:33] LABS: Basophils Absolute Auto 0.1 K/mm3 (0.0-0.1); Basophils Percent Auto 0.6 % (0.2-1.2); Eosinophils Absolute Auto 0.1 K/mm3 (0-0.3); Eosinophils Percent Auto 1.5 % (0-4.4); Hematocrit 43.5 % (37.0-47.0); Immature Granulocyte Absolute 0.04 K/mm3 (0.00-0.031); Immature Granulocyte Percent A 0.4 % (0-0.5); Lymphocytes Absolute Auto 4.32 K/mm3 (0.9-3.2); Lymphocytes Percent Auto 45.4 % (18.3-44.2); Mean Corpuscular HGB Conc 32.2 g/dl (32-36); Mean Corpuscular Hemoglobin 26.8 pg (26-34); Mean Corpuscular Volume 83.2 fl (80-100); Mean Platelet Volume 12.3 fl (7.4-10.4); Monocytes Absolute Auto 0.8 K/mm3 (0.1-0.6); Neutrophils Absolute Auto 4.2 K/mm3 (1.3-6.7); Neutrophils Percent Auto 44.1 % (45.5-73.1); Platelet Count Result 183 k/mm3 (150-375); Red Blood Count 5.23 M/mm3 (4.2-5.4); Red Cell Distribution Width 14.6 % (11.5-14.5); White Blood Count 9.5 K/mm3 (4.5-10.0)
[2025-02-11 11:44] VITALS: PULSE 99; RESP 18
[2025-02-11] MEDS: IPRATROPIUM 0.5 MG/ALBUTEROL SULFATE 2.5 MG AMPUL.NEB 3 ML INHALATION (11:44)
[2025-02-11 11:51] VITALS: PULSE 98; RESP 18
--- NOTE | 2025-02-11 12:03 | ED_ITS ---
HPI - SOB/Dyspnea General Chief Complaint: Shortness of Breath/Dyspnea Stated Complaint: coughing & SOB Time Seen by Provider: 02/11/25 11:22 History of Present Illness HPI Narrative: Pt presents with SOB this morning. Pt has had a dry cough for days but denies fever or CP or chills. Pt denies leg swelling. Pt says she has seasonal asthma but denies copd or chf hx. Related Data Home Medications ?Medication ?Instructions ?Recorded ?Confirmed ?Last Taken ?Type clobetasol 0.05 % topical cream 1 applic topical DAILY PRN 06/27/22 12/23/24 04/29/24 20:00 History irritation Allergies Allergy/AdvReac Type Severity Reaction Status Date / Time latex Allergy Mild Rash Verified 02/11/25 11:21 adhesive Allergy Unknown Unknown Verified 02/11/25 11:21 clarithromycin Allergy Unknown Unknown Verified 02/11/25 11:21 gabapentin Allergy Unknown Unknown Verified 02/11/25 11:21 metformin Allergy Unknown diarrhea Verified 02/11/25 11:21 neomycin Allergy Unknown Itching Verified 02/11/25 11:21 oseltamivir Allergy Unknown Unknown Verified 02/11/25 11:21 Penicillins Allergy Unknown Unknown Verified 02/11/25 11:21 Sulfa (Sulfonamide Allergy Unknown Unknown Verified 02/11/25 11:21 Antibiotics) Review of Systems 2 Review of Systems: All systems reviewed & are unremarkable except as noted in HPI and below PMFSH Past Medical History Medical History (Updated 02/11/25 @ 14:17 by Gordo Melchor III, DO) Nasal pain Left ear impacted cerumen Nasal vestibulitis Fever Diverticulitis Frequent epistaxis Bleeding from both ears Anogenital lichen sclerosus Cellulitis and abscess of buttock Frequent falls Glucosuria Cristina infection Abscess Helicobacter positive gastritis Screening for osteoporosis Nasal lesion Skin exam for malignant neoplasm Degenerative disc disease, cervical Degenerative disc disease, lumbar Diverticulitis of sigmoid colon Lichen sclerosus Postmenopausal History of abnormal mammogram Ulnar neuropathy at elbow Pain aggravated by physical activity Forgetfulness Panic attacks Restless leg syndrome History of kidney stones Renal cyst, left Hypothyroidism Chronic diarrhea Allergic dermatitis Chronic pain disorder Essential (primary) hypertension Generalized anxiety disorder Irritable bowel syndrome with diarrhea Obstructive sleep apnea (adult) (pediatric) Likely obstructive sleep apnea however patient has not have polysomnogram Urinary incontinence in female Morbid (severe) obesity due to excess calories GERD without esophagitis Asthma Hepatic steatosis Hyperlipemia, mixed Type 2 diabetes mellitus with diabetic neuropathy Depression Fibromyalgia Basal cell carcinoma Surgical History Surgical History History of sinus surgery History of tonsillectomy History of cervical discectomy History of colonoscopy with polypectomy History of dental surgery History of carpal tunnel surgery History of appendectomy (~1980) History of total hysterectomy with bilateral salpingo-oophorectomy (BSO) (~1980) History of cholecystectomy (~1995) History of lithotripsy (~2001) Family History Family History Father Hypertension Cerebrovascular accident Family history of suicide, Onset Age: 72 Mother Family history of malignant neoplasm Family history of primary malignant neoplasm of liver, Onset Age: 50 Liver cancer Grandparent Cerebrovascular accident Sibling Patient's brother is in good health Patient's sister is Daughter Abscess Other Diabetes mellitus Social History Social History (Updated 12/23/24 @ 09:10 by Rody Urena) Social History: Surrogate medical decision maker: Estefanía Gutierrez and Dalila Oconnor (daughters). Code status: Full code. Caffeine-daily Smoking status: Never smoker Second hand tobacco smoke exposure: Yes Alcohol intake: current Drinks per week: 1 Alcohol use details: Occasional Substance use: never Substance use type: does not use Other substance usage details: CBD Last use: cbd gummies Do You Feel Safe in your Home?: Yes Lack of Transportation: No Lack of Food: Never True Current Housing: I Have Housing Concerned About Future Housing: No Difficulty Paying Gas/Electric Bills: No Difficulty Paying for Meds: No Currently Unemployed: No Education: Associate Degree Difficulty w/ Childcare or Family Care: No Living arrangements: alone Additional living arrangements comments: fall 2022. 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 Spiritual care concerns: No Exam 2 Const: General: healthy appearing and no acute distress Nutritional Appearance: well nourished Orientation/consciousness: patient oriented x3 Limitations: no limitations Resp: Effort & Inspection: labored, retractions, tachypneic and uses accessory muscles Auscultation: wheezes Cardio: Rate: regular rate Rhythm: regular rhythm GI: GI Palp: Yes Soft to palpation and No Tenderness to palpation present (GI) Skin: General skin exam: normal color Rashes: no rashes Wounds: no wounds Neuro: General: patient oriented x3, moves all extremities and no focal motor deficits Speech: normal speech Extrem: General: normal to inspection and no clubbing, cyanosis or edema Psych: Mental Status: mental status grossly normal Affect: normal affect Attitude: cooperative Course Vital Signs Vital signs: Vital Signs Temperature 97.8 F 02/11/25 11:17 Pulse Rate 103 H 02/11/25 11:17 Respiratory Rate 20 02/11/25 11:17 Blood Pressure 176/84 H 02/11/25 11:17 Pulse Oximetry 96 02/11/25 11:17 Oxygen Delivery Room Air 02/11/25 11:17 Temperature 97.8 F 02/11/25 11:17 Pulse Rate 104 H 02/11/25 14:07 Respiratory Rate 18 02/11/25 14:07 Blood Pressure 151/86 H 02/11/25 14:07 Pulse Oximetry 100 02/11/25 14:07 Oxygen Delivery Room Air 02/11/25 11:24 MDM - SOB/Dyspnea MDM Narrative Medical decision making narrative: seems more like copd/asthma but could be chf. will do labs and cxr and ekg and give neb. will hold on CT to rule out PE pending other tests. testing unremarkable CTA ordered to rule out PE also neg. Pt does feel better. will send home on neb z pack and prednisone. Differential Diagnosis Differential diagnosis: Likely acute exacerbation of chronic obstructive airways disease, congestive heart failure, community acquired pneumonia, asthma with exacerbation and pulmonary embolism Lab Data 02/11/25 11:23 02/11/25 11:53 Labs: Lab Results 02/11/25 02/11/25 Range/Units 11:23 11:53 WBC 9.5 (4.5-10.0) K/mm3 RBC 5.23 (4.2-5.4) M/mm3 Hgb 14.0 (12.0-15.0) g/dL Hct 43.5 (37.0-47.0) % MCV 83.2 (80-100) fl MCH 26.8 (26-34) pg MCHC 32.2 (32-36) g/dl RDW 14.6 H (11.5-14.5) % Plt Count 183 (150-375) k/mm3 MPV 12.3 H (7.4-10.4) fl Immature Gran % (Auto) 0.4 (0-0.5) % Neut % (Auto) 44.1 L (45.5-73.1) % Lymph % (Auto) 45.4 H (18.3-44.2) % [place] % (Auto) 8.0 (2.6-8.5) % Eos % (Auto) 1.5 (0-4.4) % Baso % (Auto) 0.6 (0.2-1.2) % Lymph # (Auto) 4.32 H (0.9-3.2) K/mm3 [place] # (Auto) 0.8 H (0.1-0.6) K/mm3 Eos # (Auto) 0.1 (0-0.3) K/mm3 Baso # (Auto) 0.1 (0.0-0.1) K/mm3 Abs Immat Gran (auto) 0.04 H (0.00-0.031) K/mm3 Absolute Neuts (auto) 4.2 (1.3-6.7) K/mm3 Absolute Nucleated RBC 0.000 (0.0-0.012) K/mm3 Nucleated RBC % 0.0 (0.0-0.2) % D-Dimer 0.39 (<0.48) ug/mL Sodium 136 L (137-145) mmol/L Potassium 3.8 (3.4-5.0) mmol/L Chloride 103 (98-107) mmol/L Carbon Dioxide 22 (22-30) mmol/L Anion Gap 11 (4-12) mmol/L BUN 10 D (7-17) mg/dL Creatinine 0.82 (0.7-1.0) mg/dL Estim Creat Clear Calc 57 ml/min Estimated GFR > 60 (59 - ) Glucose 250 H (65-110) mg/dL Calcium 9.2 (8.4-10.2) mg/dL Total Bilirubin 0.4 (0.2-1.3) mg/dL AST 30 (14-36) U/L ALT 20 (6-35) U/L Alkaline Phosphatase 106 (38-126) U/L Troponin I < 0.012 (0.000-0.034) ng/mL NT-Pro-B Natriuret Pep 106 H (19.9-100) pg/mL Total Protein 7.0 (6.3-8.2) g/dL Albumin 4.2 (3.5-5.1) g/dL Influenza A (RT-PCR) Negative (Negative) Influenza B (RT-PCR) Negative (Negative) RSV (RT-PCR) Negative (Negative) SARS-CoV-2 RNA (RT-PCR) Negative (Negative) Discharge Plan Discharge Clinical Impression: Bronchitis Patient Disposition: Home Condition: Improved Instructions: Antibiotic Form, Asthma (ED), Acute Bronchitis (ED) Patient Language: Latvian Prescriptions: New azithromycin [Zithromax Z-Joe] 250 mg tablet See Rx Instructions .ROUTE .COMPLEX Qty: 6 0RF Rx Instructions: For 250 mg dose pack: take 500 mg today (day 1), then 250 mg for 4 days (days 2-5) prednisone 50 mg tablet 50 mg PO DAILY Qty: 5 0RF No Action duloxetine [Cymbalta] 60 mg capsule,delayed release(DR/EC) 60 mg PO DAILY Qty: 180 0RF nystatin 100,000 unit/gram powder 1 applic topical TID PRN (Reason: Itching) Qty: 30 1RF glimepiride 4 mg tablet 4 mg PO QAM Qty: 30 3RF Rx Instructions: administer with breakfast (DME) blood-glucose meter [Accu-Chek Guide Glucose Meter] Misc See Rx Instructions .Route Qty: 1 0RF Rx Instructions: As directed for diabetes insulin glargine [Lantus U-100 Insulin] 100 unit/mL solution 15 unit SUBCUT HS Qty: 10 0RF fluticasone propionate [Allergy Relief (fluticasone)] 50 mcg/actuation spray,suspension 2 spray intranasal DAILY 30 Days Qty: 16 2RF Rx Instructions: administer into each nostril clobetasol 0.05 % cream 1 applic TOPICAL DAILY PRN (Reason: irritation) Rx Instructions: vaginal area ciprofloxacin HCl 500 mg tablet 500 mg PO Q12H Qty: 14 0RF metronidazole 500 mg tablet 500 mg PO Q8H Qty: 21 0RF hydrocodone-acetaminophen 5-325 mg tablet 1 tablet PO Q6H PRN (Reason: pain) Qty: 10 0RF albuterol sulfate 90 mcg/actuation HFA aerosol inhaler 2 puff inhalation Q4H PRN (Reason: Shortness Of Breath) Qty: 8.5 5RF Rx Instructions: INHALE 2 PUFFS EVERY 4 HOURS NEEDED FOR SHORTNESS OF BREATH OR WHEEZING (DME) Accu-Chek Guide test strips Strip See Rx Instructions .ROUTE .MEDSUPPLY Qty: 100 0RF Rx Instructions: Check glucose bid for diabetes levothyroxine 88 mcg tablet 88 mcg PO DAILY Qty: 90 0RF albuterol sulfate 2.5 mg /3 mL (0.083 %) solution for nebulization 2.5 mg INHALATION Q4-6H PRN (Reason: shortness of breath or wheezing) Qty: 75 2RF insulin aspart U-100 [Novolog U-100 Insulin aspart] 100 unit/mL solution 1 sliding scale dose subcut USEASDIRECTD Qty: 10 1RF ondansetron HCl 4 mg tablet 4 mg PO Q8H PRN (Reason: nausea and vomiting) Qty: 30 2RF atenolol 50 mg tablet 75 mg PO HS Qty: 45 6RF Rx Instructions: Takes med before bed omeprazole 40 mg capsule,delayed release(DR/EC) 40 mg PO DAILY Qty: 30 2RF alprazolam 1 mg tablet 1 mg PO DAILY Qty: 30 0RF ropinirole 1 mg tablet See Rx Instructions .ROUTE .COMPLEX Qty: 270 0RF Dose Instruction: TAKE 1 TABLET BY MOUTH THREE TIMES A DAY Rx Instructions: TAKE 1 TABLET BY MOUTH THREE TIMES A DAY atorvastatin 40 mg tablet 40 mg PO DAILY Qty: 90 2RF cyclobenzaprine 10 mg tablet 10 mg PO TID PRN (Reason: muscle spasm) Qty: 30 0RF bupropion HCl 300 mg tablet extended release 24 hr See Rx Instructions .ROUTE .COMPLEX Qty: 90 1RF Dose Instruction: TAKE 1 TABLET BY MOUTH EVERY MORNING Rx Instructions: TAKE 1 TABLET BY MOUTH EVERY MORNING Follow-up/Referrals: Mere Harris, CRYPTOGRAPHIC VULNERABILITY ANALYST [Primary Care Provider] -
[2025-02-11 12:10] LABS: Influenza A QL RT-PCR Negative (Negative); Influenza B QL RT-PCR Negative (Negative); RSV RNA, RT-PCR Negative (Negative); SARS-CoV-2 RNA PCR Negative (Negative)
[2025-02-11 12:21] LABS: NT Pro B Type Natriuretic Pept 106 pg/mL (19.9-100)
[2025-02-11 12:23] LABS: Troponin I < 0.012 ng/mL (0.000-0.034)
--- OUTSIDE RECORDS SUMMARY | 2025-02-11 12:55 | XMS_ITS | Referral Summary ---
Author Organization [facility] Address [address] [place] [address] Care Team Providers Care Genetics Teacher Name Role Phone Sam Delgado MD Primary Care Provider [phone] Encounters Date Type Department Care Team Description 02/04/2025 [facility] Post Discharge Follow up phone call [address] [address] Anabelle Soliman RN 02/01/2025 11:26 PM CDT - 02/03/2025 7:02 PM CDT Hospital Encounter [address] [address] Cecil Rudd MD [place], MD Moose Ellis, MD Alem Holloway, MD Elda Humphries Swaroop, MD Urinary tract infection without hematuria, site unspecified (Primary Dx); Weakness; Dizziness; Type 2 diabetes mellitus without complication, with long-term current use of insulin (HCC); Chest pressure Discharge Disposition: Discharge to home or self care from Last 3 Months Allergies Active Allergy Reactions Criticality Noted Date Comments Adhesive Tape-Silicones Rash Medium Ciprofloxacin Nausea & Vomiting Low 02/01/2025 Penicillins Nausea & Vomiting Low Ibmkfzn-Tbl-Lws Reductase Inhibitors Hives Medium Sulfa Nausea & Vomiting Low 02/01/2025 Oseltamivir Nausea & Vomiting Low 02/01/2025 Medications buPROPion XL (WELLBUTRIN XL) 300 mg 24 hr tablet Take 1 tablet (300 mg total) by mouth every morning 05/22/20 24 Active levothyroxine (SYNTHROID) 75 mcg tablet Take 88 mcg by mouth daily 09/27/19 23 Active atenoloL (TENORMIN) 50 mg tablet Take 1.5 tablets (75 mg total) by mouth daily Active clobetasoL (TEMOVATE) 0.05 % cream Apply 1 Application topically 2 (two) times a day as needed (skin irritation) Active ALPRAZolam (XANAX) 1 mg tablet Take 1 tablet (1 mg total) by mouth daily Active SITagliptin phosphate (JANUVIA) 25 mg tablet Take 1 tablet (25 mg total) by mouth daily Active glimepiride (AMARYL) 4 mg tablet Take 1 tablet (4 mg total) by mouth daily Active atorvastatin (LIPITOR) 20 mg tablet Take 1 tablet (20 mg total) by mouth daily 05/22/20 24 Active rOPINIRole (REQUIP) 1 mg tablet Take 1 tablet (1 mg total) by mouth 3 (three) times a day Active LANTUS 100 unit/mL [...] needed for muscle spasms 07/15/20 24 Active meclizine (ANTIVERT) 25 mg tabletIndications: Vertigo Take 1 tablet (25 mg total) by mouth 3 (three) times a day as needed for dizziness 30 tablet 09/02/20 24 Active ondansetron ODT (ZOFRAN-ODT) 4 mg disintegrating tablet Take 1 tablet (4 mg total) by mouth every 8 (eight) hours as needed for nausea or vomiting 20 tablet 10/29/19 25 Active albuterol HFA (PROVENTIL HFA,VENTOLIN HFA,PROAIR HFA) 90 mcg/actuation inhaler Inhale 2 puffs every 4 (four) hours as needed for wheezing or shortness of breath Active cholecalciferol (VITAMIN D-3) 50,000 unit capsule Take 1 capsule (50,000 Units total) by mouth once a week Active nystatin powder Apply 100,000 Applications topically 3 (three) times a day as needed (Needed for iching) Active ondansetron (ZOFRAN) 4 mg tablet Take 1 tablet (4 mg total) by mouth every 8 (eight) hours as needed for nausea or vomiting Active valACYclovir (VALTREX) 1 gram tablet Take 1 tablet (1,000 mg total) by mouth 3 (three) times a day as needed (as needed for cold sores) Active bismuth subsalicylate (PEPTO-BISMOL) 262 mg tablet,chewable 2 tablets (524 mg total) Active fluconazole (DIFLUCAN) 150 mg tablet Take 1 tablet (150 mg total) by mouth once PRN for yeast infections Active neomycin-polymyxin -HC (CORTISPORIN) otic solution Administer 3 drops into each ear 3 (three) times a day Active potassium chloride (KLOR-CON) 20 mEq packet Take 1 packet (20 mEq total) by mouth daily Dissolve each packet in at least 4 ounces (120 mL) of cold water or other beverage prior to administration. Active insulin aspart (NovoLOG) 100 unit/mL (3 mL) pen for injection Inject under the skin SSI Active Mounjaro 2.5 mg/0.5 mL pen injector 0.5 mL (2.5 mg total) by abdominal subcutaneous route once a week 05/12/20 24 025 Discontin ued(Thera py completed ) Jardiance 25 mg tablet Take 1 tablet (25 mg total) by mouth daily 05/22/20 24 025 Discontin ued(Thera py completed ) amLODIPine (NORVASC) 5 mg tablet Take 1 tablet (5 mg total) by mouth daily 30 tablet 1 07/26/20 24 025 Discontin ued(Thera py completed ) Active Problems Problem Noted Date Diagnosed Date Fatigue 02/02/2025 Disorientation 02/02/2025 Cough 02/02/2025 SOB (shortness of breath) 02/02/2025 Chest pressure 02/02/2025 Vomiting and diarrhea 02/02/2025 Pyuria 02/02/2025 Hypothyroid 02/02/2025 Ear pain, bilateral 02/02/2025 Type 2 diabetes mellitus, wi th long-term current use of insulin 02/02/2025 CARMEN (obstructive sleep apnea) 02/02/2025 Dehydration 02/02/2025 Dizziness 02/02/2025 Urinary tract infection without hematuria, site unspecified 02/01/2025 Sepsis due to anaerobic bacteria 08/28/2024 Abdominal pain 07/22/2024 Hypothyroidism 01/18/2014 Overview (12/09/2016): HYPOTHYROIDISM NOS Social History Tobacco Use Types Packs/Day Years Used Date Smoking Tobacco: Never Smokeless Tobacco: Never Tobacco Cessation:Counseling Given: Not Answered Alcohol Use Standard Drinks/Week Comments No 0 (1 standard drink = 0.6 oz pur e alcohol) [facility] Utilities Answer Date Recorded In the past 12 months has e electric, gas, oil, or water [employer] threatened to shut off services in your home? No 02/03/2025 Social Connection and Isolat ion Panel [NHANES] Answer Date Recorded In a typical week, how many times do you talk on the phone with family, friends, or neighbors? More than three times a week 02/03/2025 How often do you get togethe r with friends or relatives? More than three times a week 02/03/2025 How often do you attend chur ch or rastafarian services? Never 02/03/2025 Do you belong to any clubs o r organizations such as latter day groups, unions, fraternal or athletic groups, or school groups? No 02/03/2025 How often do you attend meet ings of the clubs or organizations you belong to? Never 02/03/2025 Are you , , di vorced, , never , or living with a partner? 02/03/2025 AUDIT-C Answer Date Recorded Q1: How often do you have a drink containing alcohol? Monthly or less 02/02/2025 Q2: How many drinks containi ng alcohol do you have on a typical day when you are drinking? Patient does not drink Q3: How often do you have si x or more drinks on one occasion? Never 02/02/2025 Overall Financial Resource Strain (CARDIA) Answe r Date Recorded How hard is it for you to pa y for the very basics like food, housing, medical care, and heating? Not hard at all 02/03/2025 Hunger Vital Sign Answer Date Recorded Within the past 12 months, y ou worried that your food would run out before you got the money to buy more. Never true 02/04/20 25 Within the past 12 months, t he food you bought just didn't last and you didn't have money to get more. Never true 02/03/2025 PRAPARE - Transportation Answer Date Re corded In the past 12 months, has l ack of transportation kept you from medical appointments or from getting medications? No 10/2024 In the past 12 months, has l ack of transportation kept you from meetings, work, or from getting things needed for daily living? No 02/03/2025 Housing Stability Vital Sign Answer Gus e Recorded In the last 12 months, was t here a time when you were not able to pay the mortgage or rent on time? No 02/03/2025 In the past 12 months, how m any times have you moved where you were living? 0 02/03/2025 At any time in the past 12 m [facility], were you homeless or living in a chcf (including now)? No 02/03/2025 Personal Safety Answer Date Recorded Have you ever been in or are you currently in a harmful physical or emotional relationship or is someone making you feel afraid or unsafe? Denies 02/01/2025 Education Answer Date Recorded What is the highest level of school you have completed or the highest degree you have received? 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 Gender Identity Not on file Sexual Orientation Not on file Last Filed Vital Signs Vital Sign Reading Time Taken Comments Blood Pressure 147/81 02/03/2025 3:56 PM CDT Pulse 65 02/03/2025 3:56 PM CDT Temperature 37.2 C (99 F) 02/03/2025 3:56 PM CDT Respiratory Rate 18 02/03/2025 3:56 PM CDT Oxygen Saturation 97% 02/03/2025 3:56 PM CDT Inhaled Oxygen Concentration - - Weight 90.1 kg (198 lb 10.2 oz) 025 12:43 PM CDT Height 152.4 cm (5') 02/03/2025 12:43 PM CDT Body Mass Index 38.79 02/03/2025 12:43 PM CDT Plan of Treatment Not on file Procedures Procedure Name Priority Date/Time Associated Diagnosis Comments POCT GLUCOSE DEVICE Routine 02/03/2025 5 :00 PM CDT TRANSTHORACIC ECHO (TTE) COMPLETE W DOPPLER/CF WO CONTRAST Pending Discharge 02/03/2025 2:48 PM CDT MRI BRAIN WO CONTRAST Pending Discharge 02/03/2025 1:43 PM CDT POCT GLUCOSE DEVICE Routine 02/03/2025 1 1:21 AM CDT POCT GLUCOSE DEVICE Routine 02/03/2025 6 :36 AM CDT EGFR Routine 02/03/2025 4:35 AM CDT DIFFERENTIAL AUTO Routine 02/03/2025 4:3 5 AM CDT BASIC METABOLIC PANEL Routine 02/03/2025 4:35 AM CDT CBC WITH AUTO DIFFERENTIAL Routine 02/03/2025 4:35 AM CDT POCT GLUCOSE DEVICE Routine 02/02/2025 8 :12 PM CDT POCT GLUCOSE DEVICE Routine 02/02/2025 4 :40 PM CDT POCT GLUCOSE DEVICE Routine 02/02/2025 1 1:25 AM CDT VITAMIN B12 STAT 02/02/2025 9:37 AM CDT AMMONIA STAT 02/02/2025 9:[address] CHEST PE W CONTRAST ED Urgent/IP Urgent 02/02/2025 9:26 AM CDT DIFFERENTIAL AUTO Routine 02/02/2025 7:3 1 AM CDT CBC WITH AUTO DIFFERENTIAL Routine 02/02/2025 7:31 AM CDT POCT GLUCOSE DEVICE Routine 02/02/2025 7 :01 AM CDT EGFR Routine 02/02/2025 5:17 AM CDT BASIC METABOLIC PANEL Routine 02/02/2025 5:17 AM CDT TSH Routine 02/02/2025 5:17 AM CDT TROPONIN T HIGH-SENSITIVITY STAT 02/02/2025 5:17 AM CDT TROPONIN T HIGH-SENSITIVITY 6-HOUR Timed 02/02/2025 4:17 AM CDT POCT GLUCOSE DEVICE Routine 02/02/2025 2 :20 AM CDT TROPONIN T HIGH-SENSITIVITY 2-HOUR Timed 02/02/2025 1:06 AM CDT EGFR STAT 02/01/2025 9:52 PM CDT URINALYSIS, MICROSCOPIC ONLY STAT 02/01/2025 9:52 PM CDT DIFFERENTIAL AUTO STAT 02/01/2025 9:5 2 PM CDT TROPONIN T HIGH-SENSITIVITY SERIES (BASELINE, 2HR, 4HR, 6HR) STAT 02/01/2025 9:52 PM CDT COMPREHENSIVE METABOLIC PANEL STAT 02/01/2025 9:52 PM CDT CBC WITH AUTO DIFFERENTIAL STAT 02/01/2025 9:52 PM CDT URINALYSIS AND REFLEX TO MICROSCOPIC AND CULTURE STAT 02/01/2025 9:52 PM CDT XR CHEST 1 VIEW ED 02/01/2025 7:[address] HEAD WO CONTRAST ED 02/01/2025 7 :06 PM CDT ECG 12-LEAD Routine 02/01/2025 5:55 PM CDT HEMOGLOBIN A1C Routine 07/23/2024 9:07 AM PEDIATRIC NEUROLOGIST from Last 3 Months or Most Recently Relevant to Health Maintenance Results * POCT glucose (02/03/2025 5:00 PM CDT) [facility] Glucose, POC 199 70 - 199 mg/dL POC Performer [id number] FREDERICK Blood 02/03/2025 5:00 PM CDT 02/03/2025 5:00 PM CDT Tiffanie Schroeder MD LAB POCT ORDERABLES - DEVICE [facility] [address] Department [place] [address] * TRANSTHORACIC ECHO (TTE) COMPLETE W DOPPLER/CF WO CONTRAST (02/03/2025 2:48 PM CDT) [facility] EF Mod BP 77 % CONS SCIMAGE Anatomical Region Laterality Modality Ultrasound 02/03/2025 2:16 PM CDT Narrative 02/03/2025 3:48 PM CDT [address] [address] Echocardiogram Report Patient Name: INNA CRAIG C : 1955 Study Date: 02/03/2025 2:16:52 PM Gender: F Tech: Location: [id number] Ref Provider: TIFFANIE SCHROEDER Height(Cm): 152 BSA: 1.95 Weight(Kg): 90 Heart Rate: 68 BP: 117 / 77 Quality: Good Order Provider: TIFFANIE SCHROEDER PROCEDURES: Echocardiographic Report: Transthoracic echocardiogram with complete 2D, M-Mode, and color Doppler examination. INDICATIONS: Chest Pain, Fatigue, and Shortness of breath. MEASUREMENTS: 2D/MM Value Range Doppler Value Range EF Teich 2D 76.6 percent [ 54.0 - 74.0 ] ANAMARIA Vmax 2.27 cm2 EF Mod BP 77 % [ 54 - 74 ] AV Mean PG 4 mmHg LVIDd 2D 3.35 cm [ 3.80 - 5.20 ] AV Peak Robi 1.39 m/s [ 1.00 - 1.70 ] LVIDs 2D 1.87 cm [ 2.20 - 3.50 ] AV VTI 33.55 cm LVPWd 2D 1.10 cm [ 0.60 - 0.90 ] LVOT Diam 1.97 cm IVSd 2D 1.22 cm [ 0.60 - 0.90 ] LVOT Peak Robi 1.04 m/s [ 0.70 - 1.10 ] LA Dimension 2D 4.01 cm [ 2.70 - 3.80 ] LVOT VTI 23.33 cm LA Dimension MM 3.99 cm [ 2.70 - 3.80 ] SI LVOT 38.1 ml/m2 [ >= 35.0 ] AoR Diam 2D 2.89 cm [ 2.70 - 3.70 ] MV E Peak Robi 0.91 m/s [ 0.60 - 1.30 ] AoR Diam MM 2.82 cm [ 2.70 - 3.70 ] MV A Peak Robi 0.89 m/s [ 1.00 - 1.20 ] LA Volume Index 47.30 cc/m2 [ 16.00 - 34.00 ] MV Mean PG 2 mmHg ACS MM 2.01 cm MV PHT 76 msec [ 20 - 100 ] MVA PHT 2.89 cm2 MV Decel Time 228 msec [ 104 - 258 ] PV Peak Robi 0.93 m/s [ 0.40 - 0.80 ] TR Peak Robi 2.73 m/s [ 1.00 - 2.80 ] TR Peak PG 30 mmHg E` 0.08 m/s E/E` 11.92 2D/MM Value Range Doppler Value Range - FINDINGS: Atrial Septum: Normal atrial septum. Left Ventricle: Reduced left ventricular cavity size. Mild concentric left ventricular hypertrophy. Hyperdynamic left ventricular function. No focal wall motion abnormalities. Normal left ventricular diastolic function. Ejection fraction is measured at 77 %. Left Atrium: There is mild enlargement of left atrium. Right Ventricle: Normal right ventricular size. Normal right ventricular systolic function. Right Atrium: The right atrium is normal in size. Aortic Valve: Trileaflet aortic valve. Aortic cusps appear mildly sclerotic. No evidence of hemodynamically significant aortic stenosis by Doppler. Mitral Valve: Mitral valve leaflets appear mildly thickened. Trivial regurgitation of the mitral valve. Pulmonic Valve: Normal structure of the pulmonic valve. No evidence of pulmonic regurgitation. Tricuspid Valve: Normal structure of the tricuspid valve. Normal right ventricular systolic pressure. Trivial regurgitation in the tricuspid valve. Pericardium: Normal pericardium with no significant pericardial effusion. Aorta: Ascending aorta is normal. Descending aorta is normal. There is mild atherosclerosis in the aortic root. IVC: Normal size and normal respiratory collapse consistent with normal right atrial pressure (<5 mmHg). Pulmonary Artery: Pulmonary artery not well visualized. CONCLUSIONS: Reduced left ventricular cavity size. Mild concentric left ventricular hypertrophy. Hyperdynamic left ventricular function. No focal wall motion abnormalities. Normal left ventricular diastolic function. Ejection fraction is measured at 77 %. Normal right ventricular size. Normal right ventricular systolic function. There is mild enlargement of left atrium. Mitral valve leaflets appear mildly thickened. Trivial regurgitation of the mitral valve. Trileaflet aortic valve. Aortic cusps appear mildly sclerotic. No evidence of hemodynamically significant aortic stenosis by Doppler. Normal structure of the tricuspid valve. Normal right ventricular systolic pressure. Trivial regurgitation in the tricuspid valve. Normal pericardium with no significant pericardial effusion. Electronically Signed By: Brooke Monae MD 02/03/2025 3:47:39 PM CDT Procedure Note Brooke Monae MD - 02/03/2025 [place] [address] Echocardiogram Report Patient Name: INNA CRAIG C : 1955 Study Date: 02/03/2025 2:16:52 PM Gender: F Tech: Location: [id number] Ref Provider: TIFFANIE SCHROEDER Height(Cm): 152 BSA: 1.95 Weight(Kg): 90 Heart Rate: 68 BP: 117 / 77 Quality: Good Order Provider: TIFFANIE SCHROEDER PROCEDURES: Echocardiographic Report: Transthoracic echocardiogram with complete 2D, M-Mode, and color Dopplerexamination. INDICATIONS: Chest Pain, Fatigue, and Shortness of breath. MEASUREMENTS: 2D/MM Value Range DopplerValue Range EF Teich 2D 76.6 percent [ 54.0 - 74.0 ] ANAMARIA Vmax2.27 cm2 EF Mod BP 77 % [ 54 - 74 ] AV Mean PG 4mmHg LVIDd 2D 3.35 cm [ 3.80 - 5.20 ] AV Peak Vel1.39 m/s [ 1.00 - 1.70 ] LVIDs 2D 1.87 cm [ 2.20 - 3.50 ] AV VTI33.55 cm LVPWd 2D 1.10 cm [ 0.60 - 0.90 ] LVOT Diam1.97 cm IVSd 2D 1.22 cm [ 0.60 - 0.90 ] LVOT Peak Vel1.04 m/s [ 0.70 - 1.10 ] LA Dimension 2D 4.01 cm [ 2.70 - 3.80 ] LVOT VTI23.33 cm LA Dimension MM 3.99 cm [ 2.70 - 3.80 ] SI LVOT38.1 ml/m2 [ >= 35.0 ] AoR Diam 2D 2.89 cm [ 2.70 - 3.70 ] MV E Peak Vel0.91 m/s [ 0.60 - 1.30 ] AoR Diam MM 2.82 cm [ 2.70 - 3.70 ] MV A Peak Vel0.89 m/s [ 1.00 - 1.20 ] LA Volume Index 47.30 cc/m2 [ 16.00 - 34.00 ] MV Mean PG 2mmHg ACS MM 2.01 cm MV PHT76 msec [ 20 - 100 ] MVA PHT 2.89 cm2 MV Decel Time 228 msec [ 104 - 258 ] PV Peak Robi 0.93 m/s [ 0.40 - 0.80 ] TR Peak Robi 2.73 m/s [ 1.00 - 2.80 ] TR Peak PG 30 mmHg E` 0.08 m/s E/E` 11.92 2D/MM Value Range DopplerValue Range - FINDINGS: Atrial Septum: Normal atrial septum. Left Ventricle: Reduced left ventricular cavity size. Mild concentric left ventricularhypertrophy. Hyperdynamic left ventricular function. No focal wall motionabnormalities. Normal left ventricular diastolic function. Ejection fraction is measured at 77 %. Left Atrium: There is mild enlargement of left atrium. Right Ventricle: Normal right ventricular size. Normal right ventricular systolicfunction. Right Atrium: The right atrium is normal in size. Aortic Valve: Trileaflet aortic valve. Aortic cusps appear mildly sclerotic. No evidenceof hemodynamically significant aortic stenosis by Doppler. Mitral Valve: Mitral valve leaflets appear mildly thickened. Trivial regurgitation ofthe mitral valve. Pulmonic Valve: Normal structure of the pulmonic valve. No evidence of pulmonicregurgitation. Tricuspid Valve: Normal structure of the tricuspid valve. Normal right ventricular systolicpressure. Trivial regurgitation in the tricuspid valve. Pericardium: Normal pericardium with no significant pericardial effusion. Aorta: Ascending aorta is normal. Descending aorta is normal. There is mildatherosclerosis in the aortic root. IVC: Normal size and normal respiratory collapse consistent with normal rightatrial pressure (<5 mmHg). Pulmonary Artery: Pulmonary artery not well visualized. CONCLUSIONS: Reduced left ventricular cavity size. Mild concentric left ventricularhypertrophy. Hyperdynamic left ventricular function. No focal wall motionabnormalities. Normal left ventricular diastolic function. Ejection fraction is measured at 77 %. Normal right ventricular size. Normal right ventricular systolicfunction. There is mild enlargement of left atrium. Mitral valve leaflets appear mildly thickened. Trivial regurgitation ofthe mitral valve. Trileaflet aortic valve. Aortic cusps appear mildly sclerotic. No evidenceof hemodynamically significant aortic stenosis by Doppler. Normal structure of the tricuspid valve. Normal right ventricular systolicpressure. Trivial regurgitation in the tricuspid valve. Normal pericardium with no significant pericardial effusion. Electronically Signed By: Brooke Monae MD 02/03/2025 3:47:39 PM CDT [facility] ECHO PROCED[facility] Final Resu lt * MRI Brain WO Contrast (02/03/2025 1:43 PM CDT) Anatomical Region Laterality Modality Head and Neck N/A Magnetic Resonan ce 02/03/2025 4:41 PM CDT Impressions 02/03/2025 4:41 PM CDT No acute intracranial pathology. Electronically signed by: Dahlia Mary M.D. Narrative 02/03/2025 4:41 PM CDT Exam: MRI BRAIN WO CONTRAST Date:02/03/2025 1:05 PM History: Mental status change, unknown cause TECHNIQUE: Noncontrast MRI brain obtained using multiplanar multisequence images. COMPARISON: CT head 02/01/2025. FINDINGS: The ventricles sulci and cisterns are within normal limits for age.The mccabe-white matter signal is unremarkable and there is no parenchymal lesion..No midline shift mass effect or extra-axial collection is seen. No diffusion restriction noted to suggest acute infarct..No acute or chronic hemorrhage is seen on the susceptibility sequences..Flow voids are seen in the basilar, cavernous internal carotid arteries, and superior sagittal sinus. The pituitary is not enlarged. Midline structures are developmentally normal. The cerebellar tonsils are normally positioned. The orbits are unremarkable with lens replacement..The visualized sinuses and mastoids are clear..Calvarial marrow signal is unremarkable.. Procedure Note Dahlia Mary MD - 02/03/2025 Exam: MRI BRAIN WO CONTRAST Date:02/03/2025 1:05 PM History: Mental status change, unknown cause TECHNIQUE: Noncontrast MRI brain obtained using multiplanar multisequence images. COMPARISON: CT head 02/01/2025. FINDINGS: The ventricles sulci and cisterns are within normal limits for age.The mccabe-white matter signal is unremarkable and there is no parenchymal lesion..No midline shift mass effect or extra-axial collection is seen. No diffusion restriction noted to suggest acute infarct..No acute or chronic hemorrhage is seen on the susceptibility sequences..Flow voids are seen in the basilar, cavernous internal carotid arteries, and superior sagittal sinus. The pituitary is not enlarged. Midline structures are developmentally normal. The cerebellar tonsils are normally positioned. The orbits are unremarkable with lens replacement..The visualized sinuses and mastoids are clear..Calvarial marrow signal is unremarkable.. IMPRESSION: No acute intracranial pathology. Electronically signed by: Dahlia Mary M.D. us Tiffanie Schroeder MD IMG MRI PROCEDURES Final Resu lt * POCT glucose (02/03/2025 11:21 AM CDT) Glucose, POC 196 70 - 199 mg/dL POC Performer [id number] FREDERICK JOINER Blood 02/03/2025 11:2 1 AM CDT 02/03/2025 11:21 AM CDT us Tiffanie Schroeder MD LAB POCT ORDERABLES - DEVICE Final Result [facility] [id number] Department [place] [address] * POCT glucose (02/03/2025 6:36 AM CDT) Glucose, POC 196 70 - 199 mg/dL POC Performer [id number] FREDERICK Blood 02/03/2025 6:36 AM CDT 02/03/2025 6:36 AM CDT Josh Ferrara MD LAB POCT ORDERABLES - DE VICE Final Result [facility] [id number] [place] [place] [address] * eGFR (02/03/2025 4:35 AM CDT) eGFR 74 >=60 mL/min/1. 73 m2 Comment: [...] interpretive data was last reviewed 2021. Blood 02/03/2025 4:35 AM CDT 02/03/2025 4:45 AM CDT us Herberth Broussard MD LAB BLOOD ORDERABLES F inal Result Performing Organization Address [facility]/ZIP Co de Phone Number [facility] JOINER [id number] [place] [employer] [place] [address] * (ABNORMAL) Differential, auto (02/03/2025 4:35 AM CDT) Neutrophil abs 3.80 1.50 - 6.50 K/cumm Imm gran abs 0.06 0.00 - 0.10 K/cumm [facility] Lymphocyte abs 4.68(H) 0.80 - 3.30 K/cumm [facility] Monocyte abs 0.66 0.20 - 0.80 K/cumm [facility] Eosinophil abs 0.34 0.00 - 0.50 K/cumm [facility] Basophil abs 0.08 0.00 - 0.10 K/cumm [facility] Neutrophil pct 39.6 % [facility] Comment: Interpretive Data Percent cell count reference ranges are not reported, since discordance with absolute values may lead to misinterpretation of CBC data. Current Interpretive Data was last revised on 2017. Imm gran pct 0.6 % [facility] Comment: Interpretive Data Percent cell count reference ranges are not reported, since discordance with absolute values may lead to misinterpretation of CBC data. Current Interpretive Data was last revised on 2017. Lymphocyte pct 48.6 % [facility] Comment: Interpretive Data Percent cell count reference ranges are not reported, since discordance with absolute values may lead to misinterpretation of CBC data. Current Interpretive Data was last revised on 2017. Monocyte pct 6.9 % [facility] Comment: Interpretive Data Percent cell count reference ranges are not reported, since discordance with absolute values may lead to misinterpretation of CBC data. Current Interpretive Data was last revised on 2017. Eosinophil pct 3.5 % [facility] Comment: Interpretive Data Percent cell count reference ranges are not reported, since discordance with absolute values may lead to misinterpretation of CBC data. Current Interpretive Data was last revised on 2017. Basophil pct 0.8 % [facility] Comment: Interpretive Data Percent cell count reference ranges are not reported, since discordance with absolute values may lead to misinterpretation of CBC data. Current Interpretive Data was last revised on 2017. Blood 02/03/2025 4:35 AM CDT 02/03/2025 4:46 AM CDT us Herberth Broussard MD LAB BLOOD ORDERABLES F inal Result [facility] [address] Department [place] [address] * (ABNORMAL) CBC with auto differential (02/03/2025 4:35 AM CDT) [facility] WBC 9.62 3.80 - 9.90 K/cumm Hgb 12.9 11.9 - 15.5 g/dL [facility] Hct 42.0 35.6 - 45.5 % [facility] Plt 218 150 - 400 K/cumm [facility] MPV 11.9 9.1 - 12.3 fL [facility] RBC 4.94 3.90 - 5.20 M/cumm [facility] CH MCV 85.0 81.3 - 96.4 fL [facility] CH MCH 26.1(L) 27.1 - 33.3 pg [facility] MCHC 30.7(L) 32.3 - 35.7 g/dL [facility] CH RDW CV 14.6 11.1 - 14.9 % [facility] RDW SD 45.4 35.7 - 48.1 fL [facility] NRBC abs 0.00 0.00 - 0.01 K/cumm [facility] Blood 02/03/2025 4:35 AM CDT 02/03/2025 4:46 AM CDT Herberth Broussard MD LAB BLOOD ORDERABLES F inal Result [facility] [address] Department [place] [address] * Basic metabolic panel (02/03/2025 4:35 AM CDT) [facility] Sodium 140 135 - 145 mmol/L Potassium, pl 4.2 3.3 - 4.9 mmol/L [facility] Chloride 103 97 - 110 mmol/L [facility] CH CO2 23 22 - 32 mmol/L [facility] Anion gap 14 2 - 15 mmol/L [facility] BUN 13 6 - 25 mg/dL [facility] Creatinine 0.85 0.60 - 1.10 mg/dL [facility] Glucose 192 70 - 199 mg/dL [facility] Comment: Interpretive Data Fasting glucose >/= 126 [...] Calcium 9.2 8.5 - 10.3 mg/dL [facility] Blood 02/03/2025 4:35 AM CDT 02/03/2025 4:45 AM CDT Herberth Broussard MD LAB BLOOD ORDERABLES F inal Result Performing Organization Address [facility] Co de Phone Number [facility] [address] [address] [facility] [place] [address] * (ABNORMAL) POCT glucose (02/02/2025 8:12 PM CDT) Glucose, POC 243(H) 70 - 199 mg/dL POC Performer [id number] [facility] Blood 02/02/2025 8:12 PM CDT 02/02/2025 8:12 PM CDT Josh Ferrara MD LAB POCT ORDERABLES - DE VICE Final Result Performing Organization Address [facility] Co de Phone Number [facility] [address] [employer] [place] [address] * POCT glucose (02/02/2025 4:40 PM CDT) Glucose, POC 128 70 - 199 mg/dL POC Performer [phone] [facility] Blood 02/02/2025 4:40 PM CDT 02/02/2025 4:40 PM CDT Josh Ferrara MD LAB POCT ORDERABLES - DE VICE Final Result Performing Organization Address [facility] Co de Phone Number [place] [address] [address] [facility] [place] [place] [address] * POCT glucose (02/02/2025 11:25 AM CDT) Glucose, POC 187 70 - 199 mg/dL POC Performer [phone] [facility] Blood 02/02/2025 11:2 5 AM CDT 02/02/2025 11:25 AM CDT us Josh Ferrara MD LAB POCT ORDERABLES - DE VICE Final Result Performing Organization Address [facility] Co de Phone Number [facility] [address] [address] [place] [place] [address] * Vitamin B12 (02/02/2025 9:37 AM CDT) Vitamin B12 321 230 - 1,250 pg/mL Blood 02/02/2025 9:37 AM CDT 02/02/2025 9:43 AM CDT us Josh Ferrara MD LAB BLOOD ORDERABLES Fin al Result Performing Organization Address [facility] Co de Phone Number [facility] [address] [place] [place] [address] * Ammonia (02/02/2025 9:37 AM CDT) Ammonia 22 <=50 mcmol/L Blood 02/02/2025 9:37 AM CDT 02/02/2025 9:42 AM CDT Josh Ferrara MD LAB BLOOD ORDERABLES Fin al Result Performing Organization Address [facility] Co de Phone Number [facility] [address] [address] [place] [place] [address] * CT Chest PE (CTA) W Contrast (02/02/2025 9:26 AM CDT) Anatomical Region Laterality Modality Body N/A Computed Tomogra phy 02/02/2025 9:49 AM CDT Impressions 02/02/2025 9:49 AM CDT No evidence of acute pulmonary embolism. Right upper lobe nodules largest 7 x 3 mm. Recommend a 12 month follow-up by Fleischner criteria. Electronically signed by: Dahlia Mary M.D. Narrative 02/02/2025 9:49 AM CDT Examination: CT CHEST PE (CTA) W CONTRAST Date: 02/02/2025 8:55 AM Clinical History: SOB. chest pressure Technique: Computed tomographic images were acquired a CT angiographic protocol optimized for pulmonary embolism. Contrast-enhanced transaxial images were obtained following the intravenous administration of 92 mL intravenous Optiray 350, nonionic contrast. Multiplanar reformatted images and 3-dimensional images were obtained on the 3-D workstation and sent to the PACS archival system. Comparison: None. Findings: No acute pulmonary embolism is seen in the main, 1st, 2nd, and 3rd order pulmonary arterial (PA) branches within limitation of motion. Atherosclerotic nonaneurysmal aorta is seen. Normal heart size noted without pericardial effusion. There is no CT evidence for right ventricular strain. There are no pathologically enlarged mediastinal or hilar lymph nodes. The visualized thyroid is not remarkable. A 4 mm right upper lobe nodular opacity image 50 series 6 and a 7 x 3 mm right apical perifissural nodule with mean diameter 5 mm is seen on image 44 are present. No suspicious osseous lesion is seen. Partial imaged anterior cervical discectomy and instrumented fusion is present. Colonic diverticulosis noted. Atherosclerotic proximal abdominal aorta with extensive calcified and soft plaque is seen. Procedure Note Dahlia Mary MD - 02/02/2025 Examination: CT CHEST PE (CTA) W CONTRAST Date: 02/02/2025 8:55 AM Clinical History: SOB. chest pressure Technique: Computed tomographic images were acquired a CT angiographic protocol optimized for pulmonary embolism. Contrast-enhanced transaxial images were obtained following the intravenous administration of 92 mL intravenous Optiray 350, nonionic contrast. Multiplanar reformatted images and 3-dimensional images were obtained on the 3-D workstation and sent to the PACS archival system. Comparison: None. Findings: No acute pulmonary embolism is seen in the main, 1st, 2nd, and 3rd order pulmonary arterial (PA) branches within limitation of motion. Atherosclerotic nonaneurysmal aorta is seen. Normal heart size noted without pericardial effusion. There is no CT evidence for right ventricular strain. There are no pathologically enlarged mediastinal or hilar lymph nodes. The visualized thyroid is not remarkable. A 4 mm right upper lobe nodular opacity image 50 series 6 and a 7 x 3 mm right apical perifissural nodule with mean diameter 5 mm is seen on image 44 are present. No suspicious osseous lesion is seen. Partial imaged anterior cervical discectomy and instrumented fusion is present. Colonic diverticulosis noted. Atherosclerotic proximal abdominal aorta with extensive calcified and soft plaque is seen. IMPRESSION: No evidence of acute pulmonary embolism. Right upper lobe nodules largest 7 x 3 mm. Recommend a 12 month follow-up by Fleischner criteria. Electronically signed by: Dahlia Mary M.D. Josh Ferrara MD IM CT PROCEDURES Final Result * (ABNORMAL) Differential, auto (02/02/2025 7:31 AM CDT) Neutrophil abs 5.11 1.50 - 6.50 K/cumm Imm gran abs 0.05 0.00 - 0.10 K/cumm [facility] Lymphocyte abs 4.78(H) 0.80 - 3.30 K/cumm [facility] Monocyte abs 0.72 0.20 - 0.80 K/cumm [facility] Eosinophil abs 0.27 0.00 - 0.50 K/cumm [facility] Basophil abs 0.06 0.00 - 0.10 K/cumm [facility] Neutrophil pct 46.4 % [facility] Comment: Interpretive Data Percent cell count reference ranges are not reported, since discordance with absolute values may lead to misinterpretation of CBC data. Current Interpretive Data was last revised on 2017. Imm gran pct 0.5 % [facility] Comment: Interpretive Data Percent cell count reference ranges are not reported, since discordance with absolute values may lead to misinterpretation of CBC data. Current Interpretive Data was last revised on 2017. Lymphocyte pct 43.5 % [facility] Comment: Interpretive Data Percent cell count reference ranges are not reported, since discordance with absolute values may lead to misinterpretation of CBC data. Current Interpretive Data was last revised on 2017. Monocyte pct 6.6 % [facility] Comment: Interpretive Data Percent cell count reference ranges are not reported, since discordance with absolute values may lead to misinterpretation of CBC data. Current Interpretive Data was last revised on 2017. Eosinophil pct 2.5 % [facility] Comment: Interpretive Data Percent cell count reference ranges are not reported, since discordance with absolute values may lead to misinterpretation of CBC data. Current Interpretive Data was last revised on 2017. Basophil pct 0.5 % [facility] Comment: Interpretive Data Percent cell count reference ranges are not reported, since discordance with absolute values may lead to misinterpretation of CBC data. Current Interpretive Data was last revised on 2017. Blood 02/02/2025 7:31 AM CDT 02/02/2025 7:43 AM CDT us Herberth Broussard MD LAB BLOOD ORDERABLES F inal Result [facility] [address] [place] [address] * (ABNORMAL) CBC with auto differential (02/02/2025 7:31 AM CDT) WBC 10.99(H) 3.80 - 9.90 K/cumm Hgb 13.0 11.9 - 15.5 g/dL [facility] Hct 41.1 35.6 - 45.5 % [facility] Plt 233 150 - 400 K/cumm [facility] MPV 11.2 9.1 - 12.3 fL [facility] RBC 4.94 3.90 - 5.20 M/cumm [facility] MCV 83.2 81.3 - 96.4 fL [facility] MCH 26.3(L) 27.1 - 33.3 pg [facility] MCHC 31.6(L) 32.3 - 35.7 g/dL [facility] RDW CV 14.7 11.1 - 14.9 % [facility] RDW SD 44.2 35.7 - 48.1 fL [facility] NRBC abs 0.00 0.00 - 0.01 K/cumm [facility] Blood 02/02/2025 7:31 AM CDT 02/02/2025 7:43 AM CDT Herberth Broussard MD LAB BLOOD ORDERABLES F inal Result Performing Organization Address [facility]/ZIP Co de Phone Number [place] [phone] [address] [facility] [place] [place] [address] * POCT glucose (02/02/2025 7:01 AM CDT) Glucose, POC 128 70 - 199 mg/dL POC Performer [id number] [facility] Blood 02/02/2025 7:01 AM CDT 02/02/2025 7:01 AM CDT Josh Ferrara MD LAB POCT ORDERABLES - DE VICE Final Result Performing Organization Address [facility] Phone Number [facility] [address] [address] [facility] [place] [place] [address] * Troponin T high-sensitivity (02/02/2025 5:17 AM CDT) Pathologist [facility] Trop T hs 14 <=14 ng/L Comment: Interpretive Data For further hscTnT resources including the diagnostic algorithm and an aid in interpretation, copy and paste this link: https://nrl.testcatalog.org/show/hsTrop Current Interpretive Data last revised 2020. Blood 02/02/2025 5:17 AM CDT 02/02/2025 5:51 AM CDT Herberth Broussard MD LAB BLOOD ORDERABLES F inal Result Performing Organization Address [facility] Co de Phone Number [place] [address] [address] [facility] [place] [place] [address] * eGFR (02/02/2025 5:17 AM CDT) eGFR 89 >=60 mL/min/1. 73 m2 Comment: Interpretive Data [...] interpretive data was last reviewed 2021. Blood 02/02/2025 5:17 AM CDT 02/02/2025 5:52 AM CDT Herberth Broussard MD LAB BLOOD ORDERABLES F inal Result Performing Organization Address [facility]/ZIP Co de Phone Number [facility] [address] [address] [facility] [place] [place] [address] * TSH (02/02/2025 5:17 AM CDT) Thyroid Stimulating Hormone 2.55 0.30 - 4.20 mcIUnit/mL Blood 02/02/2025 5:17 AM CDT 02/02/2025 5:52 AM CDT Herberth Broussard MD LAB BLOOD ORDERABLES F inal Result [facility] [address] [address] [facility] [place] [place] [address] * Basic metabolic panel (02/02/2025 5:17 AM CDT) Sodium 140 135 - 145 mmol/L Potassium, pl 3.5 3.3 - 4.9 mmol/L [facility] Chloride 103 97 - 110 mmol/L [facility] CO2 22 22 - 32 mmol/L [facility] Anion gap 15 2 - 15 mmol/L [facility] BUN 11 6 - 25 mg/dL [facility] Creatinine 0.73 0.60 - 1.10 mg/dL [facility] Glucose 124 70 - 199 mg/dL [facility] Comment: Interpretive Data Fasting glucose >/= 126 [...] interpretive data was last revised 2022. Calcium 9.1 8.5 - 10.3 mg/dL [facility] Blood 02/02/2025 5:17 AM CDT 02/02/2025 5:52 AM CDT Herberth Broussard MD LAB BLOOD ORDERABLES F inal Result [facility] [address] [address] Department [place] [address] * Troponin T high-sensitivity 6-hour (02/02/2025 4:17 AM CDT) Trop T hs 13 <=14 ng/L Comment: Interpretive Data For further hscTnT resources including the diagnostic algorithm and an aid in interpretation, copy and paste this link: https://nrl.testcatalog.org/show/hsTrop Current Interpretive Data last revised 2020. Trop T hs delta 2 ng/L [facility] Trop T hs interp Insignificant [facility] Blood 02/02/2025 4:17 AM CDT 02/02/2025 5:50 AM CDT Alan Olivas NP LAB BLOOD ORDERABLES Final Resul t Performing Organization Address [facility] Co de Phone Number [place] AMRISEL [address] [address] [place] [place] [address] * POCT glucose (02/02/2025 2:20 AM CDT) Glucose, POC 149 70 - 199 mg/dL POC Performer [phone] [facility] JOINER Blood 02/02/2025 2:20 AM CDT 02/02/2025 2:20 AM CDT Herberth Broussard MD LAB POCT ORDERABLES - DEVICE Final Result Performing Organization Address [facility] de Phone Number [place] [phone] [address] [place] [place] [address] * Troponin T high-sensitivity 2-hour (02/02/2025 1:06 AM CDT) Trop T hs 13 <=14 ng/L Comment: Interpretive Data For further hscTnT resources including the diagnostic algorithm and an aid in interpretation, copy and paste this link: https://nrl.testcatalog.org/show/hsTrop Current Interpretive Data last revised 2020. Trop T hs delta See Comment ng/L [place] JOINER Comment:Inappropriate collec tion time to report a delta. Trop T hs pct delta See Comment % [facility] JOINER Comment:Inappropriate collec tion time to report a delta. Trop T hs interp See Comment [facility] JOINER Comment:Inappropriate collec tion time to report a delta. Blood 02/02/2025 1:06 AM CDT 02/02/2025 1:06 AM CDT Alan Olivas NP LAB BLOOD ORDERABLES Final Resul t Performing Organization Address [facility] Co de Phone Number [place] [address] [address] [place] [address] * Troponin T high-sensitivity series (baseline, 2hr, 4hr, 6hr) (02/01/2025 9:52 PM CDT) Trop T hs 11 <=14 ng/L Comment: Interpretive Data For further hscTnT resources including the diagnostic algorithm and an aid in interpretation, copy and paste this link: https://nrl.testcatalog.org/show/hsTrop Current Interpretive Data last revised 2020. Blood 02/01/2025 9:52 PM CDT 02/01/2025 10:10 PM CDT Alan Olivas NP LAB BLOOD ORDERABLES [place] [address] [address] [place] [address] * eGFR (02/01/2025 9:52 PM CDT) eGFR 82 >=60 mL/min/1. 73 m2 Comment: Interpretive Data [...] interpretive data was last reviewed 2021. Blood 02/01/2025 9:52 PM CDT 02/01/2025 10:10 PM CDT us Alan Olivas [employer] LAB BLOOD ORDERABLES Final Resul t [place] [address] [address] [place] [address] * (ABNORMAL) Differential, auto (02/01/2025 9:52 PM CDT) Neutrophil abs 5.51 1.50 - 6.50 K/cumm Imm gran abs 0.05 0.00 - 0.10 K/cumm [facility] Lymphocyte abs 4.91(H) 0.80 - 3.30 K/cumm [facility] Monocyte abs 0.83(H) 0.20 - 0.80 K/cumm [facility] Eosinophil abs 0.22 0.00 - 0.50 K/cumm [facility] Basophil abs 0.10 0.00 - 0.10 K/cumm [facility] Neutrophil pct 47.4 % [facility] Comment: Interpretive Data Percent cell count reference ranges are not reported, since discordance with absolute values may lead to misinterpretation of CBC data. Current Interpretive Data was last revised on 2017. Imm gran pct 0.4 % [facility] Comment: Interpretive Data Percent cell count reference ranges are not reported, since discordance with absolute values may lead to misinterpretation of CBC data. Current Interpretive Data was last revised on 2017. Lymphocyte pct 42.3 % [facility] Comment: Interpretive Data Percent cell count reference ranges are not reported, since discordance with absolute values may lead to misinterpretation of CBC data. Current Interpretive Data was last revised on 2017. Monocyte pct 7.1 % [facility] Comment: Interpretive Data Percent cell count reference ranges are not reported, since discordance with absolute values may lead to misinterpretation of CBC data. Current Interpretive Data was last revised on 2017. Eosinophil pct 1.9 % [facility] Comment: Interpretive Data Percent cell count reference ranges are not reported, since discordance with absolute values may lead to misinterpretation of CBC data. Current Interpretive Data was last revised on 2017. Basophil pct 0.9 % [facility] Comment: Interpretive Data Percent cell count reference ranges are not reported, since discordance with absolute values may lead to misinterpretation of CBC data. Current Interpretive Data was last revised on 2017. Blood 02/01/2025 9:52 PM CDT 02/01/2025 10:10 PM CDT Alan Olivas NP LAB BLOOD ORDERABLES Final Resul t Performing Organization Address [facility] Co de Phone Number [facility] [address] [address] [place] [address] * (ABNORMAL) Urinalysis reflex to microscopic and culture Urine (02/01/2025 9:52 PM CDT) Color, ur Yellow Yellow Clarity, ur Clear Clear [facility] Specific gravity, ur 1.032(H) 1.003 - 1.030 [facility] pH, urine 6.0 [facility] Comment: Interpretive Data U rine pH is affected by diet, medications, systemic acid-base disturbances, and renal tubular function. pH may affect urinary stone formation. For example, urine pH below 6.0 may help reduce the tendency for calcium phosphate stones and pH greater than 6.0 may reduce the tendency for uric acid stone formation. Source: [facility] Current Interpretive Data was last revised on 2017 Protein, ur ql Negative Negative [facility] Glucose, ur ql Trace(A) Negative [facility] Ketones, ur Trace Negative [facility] Bilirubin, ur Negative Negative [facility] Blood, ur Negative Negative [facility] Urobilinogen, ur <2.0 <2.0 mg/dL [facility] Nitrite, ur Negative Negative [facility] Leukocyte esterase, ur 1+(A) Negative [facility] UA reflex comment Reflex to microscopic UA will be performed. [facility] Urine 02/01/2025 9:52 PM CDT 02/01/2025 10:13 PM CDT Alan Olivas NP LAB MICROBIOLOGY - GENERAL ORDER TACOS Final Result Performing Organization Address [facility] Co de Phone Number [place] [phone] [address] Department [place] [address] * (ABNORMAL) CBC with auto differential (02/01/2025 9:52 PM CDT) WBC 11.62(H) 3.80 - 9.90 K/cumm Hgb 14.3 11.9 - 15.5 g/dL [facility] Hct 45.2 35.6 - 45.5 % [facility] Plt 271 150 - 400 K/cumm [facility] CH MPV 11.9 9.1 - 12.3 fL [facility] RBC 5.37(H) 3.90 - 5.20 M/cumm [facility] MCV 84.2 81.3 - 96.4 fL [facility] MCH 26.6(L) 27.1 - 33.3 pg [facility] MCHC 31.6(L) 32.3 - 35.7 g/dL [facility] RDW CV 14.7 11.1 - 14.9 % [facility] RDW SD 44.5 35.7 - 48.1 fL [facility] NRBC abs 0.00 0.00 - 0.01 K/cumm [facility] Blood 02/01/2025 9:52 PM CDT 02/01/2025 10:10 PM CDT Alan Olivas NP LAB BLOOD ORDERABLES Final Resul t [place] [address] [address] [place] [address] * (ABNORMAL) Urinalysis, microscopic only (02/01/2025 9:52 PM CDT) WBC, ur 6-10(A) 0 - 5 /HPF RBC, ur 3-5(A) 0 - 2 /HPF [facility] Epithelial cells, squamous, ur 1-5 0 - 5 /HPF [facility] Mucous, ur Present(A) [facility] Culture Reflex Comment Reflex conditions for urine culture (WBC >10) not met. [facility] Urine 02/01/2025 9:52 PM CDT 02/01/2025 10:13 PM CDT us Alan Olivas [employer] MA[employer]GER LAB URINE ORDERABLES Final Resul t Performing Organization Address [facility]/ZIP Co de Phone Number [facility] [address] [place] [address] * (ABNORMAL) Comprehensive metabolic panel (02/01/2025 9:52 PM CDT) Sodium 139 135 - 145 mmol/L Potassium, pl 4.1 3.3 - 4.9 mmol/L [facility] Chloride 102 97 - 110 mmol/L [facility] CO2 24 22 - 32 mmol/L [facility] Anion gap 13 2 - 15 mmol/L [facility] BUN 14 6 - 25 mg/dL [facility] Creatinine 0.78 0.60 - 1.10 mg/dL [facility] Glucose 204(H) 70 - 199 mg/dL [facility] Comment: [...] interpretive data was last revised 2022. Calcium 10.4(H) 8.5 - 10.3 mg/dL [facility] Bilirubin, total 0.2 0.1 - 1.2 mg/dL [facility] Protein, pl 6.8 6.5 - 8.5 g/dL [facility] Albumin 4.1 3.5 - 5.0 g/dL [facility] Alk phos 111 40 - 130 Units/L [facility] ALT 8 7 - 45 Units/L [facility] AST 16 10 - 45 Units/L [facility] Blood 02/01/2025 9:52 PM CDT 02/01/2025 10:10 PM CDT Alan Olivas [employer] MANAGER LAB [place]LOOD [place] [id number] [facility] [place] [address] * XR Chest 1 Vw Portable (02/01/2025 7:31 PM CDT) Anatomical Region Laterality Modality Body, Chest N/A Computed Radiogr aphy 02/01/2025 9:11 PM CDT Impressions 02/01/2025 9:11 PM CDT No active disease. Electronically signed by: Giovanny Saravia M.D. Narrative 02/01/2025 9:11 PM CDT EXAMINATION: XR CHEST 1 VIEW HISTORY: The patient is a 69-year-old female who presents with dizziness. Comparison is made with the previous study dated 10/29/2024. TECHNIQUE: AP portable view of the chest. FINDINGS: Lungs clear. Cardiovascular structures unremarkable. Procedure Note Giovanny Saravia MD - 02/01/2025 EXAMINATION: XR CHEST 1 VIEW HISTORY: The patient is a 69-year-old female who presents with dizziness. Comparison is made with the previous study dated 10/29/2024. TECHNIQUE: AP portable view of the chest. FINDINGS: Lungs clear. Cardiovascular structures unremarkable. IMPRESSION: No active disease. Electronically signed by: Giovanny Saravia M.D. Alan Olivas NP IMG XR PROCEDURES Final Result * CT Head WO Contrast (02/01/2025 7:06 PM CDT) Anatomical Region Laterality Modality Head and Neck N/A Computed Tomogra phy 02/01/2025 7:04 PM CDT Impressions 02/01/2025 9:41 PM CDT Mild involutional changes and small vessel disease. No bleed or mass. Results transmitted to the ER by [facility]. Electronically signed by: Giovanny Saravia M.D. Narrative 02/01/2025 9:41 PM CDT EXAMINATION: CT HEAD WO CONTRAST HISTORY: The patient is a 69-year-old female who presents with dizziness. TECHNIQUE: Axial images were obtained through the brain with thin sections and viewed both in soft tissue and bone window settings. Following this, coronal and sagittal reconstructions were performed. FINDINGS: Axial images through the brain reveals the 4th, 3rd and lateral ventricles to be midline in position. There is mild prominence of the lateral ventricles and cerebral sulci. Periventricular hypodensities are noted in the centrum semiovale, consistent with small vessel deep white matter atherosclerotic disease. No intracerebral hemorrhage or extra-axial fluid collection is noted. Images obtained in the coronal and sagittal planes adds no further information. Axial images obtained at bone window settings reveal the cranial vault to be intact. Mastoid air cells and paranasal sinuses are normally aerated. Procedure Note Giovanny Saravia MD - 02/01/2025 EXAMINATION: CT HEAD WO CONTRAST HISTORY: The patient is a 69-year-old female who presents with dizziness. TECHNIQUE: Axial images were obtained through the brain with thin sections and viewed both in soft tissue and bone window settings. Following this, coronal and sagittal reconstructions were performed. FINDINGS: Axial images through the brain reveals the 4th, 3rd and lateral ventricles to be midline in position. There is mild prominence of the lateral ventricles and cerebral sulci. Periventricular hypodensities are noted in the centrum semiovale, consistent with small vessel deep white matter atherosclerotic disease. No intracerebral hemorrhage or extra-axial fluid collection is noted. Images obtained in the coronal and sagittal planes adds no further information. Axial images obtained at bone window settings reveal the cranial vault to be intact. Mastoid air cells and paranasal sinuses are normally aerated. IMPRESSION: Mild involutional changes and small vessel disease. No bleed or mass. Results transmitted to the ER by [facility]. Electronically signed by: Giovanny Saravia M.D. Alan Olivas NP IM CT PROCEDURES Final Result * ECG 12 lead (02/01/2025 5:55 PM CDT) 02/01/2025 5:55 PM CDT Narrative [facility] - 02/01/2025 11:39 PM CDT Vent Rate: 103 bpm RR Interval: 578 msec [place] Interval: 135 msec QRS Duration: 82 msec QT Interval: 325 msec QTC Interval: 385 msec P-R-T [place]: 45 - -9 - 35 degrees IMPRESSION: SINUS TACHYCARDIA ABNORMAL RHYTHM ECG NO CHANGE FROM PREVIOUS TRACING NOTED Electronically Signed By: Rashaad Massey MD us Cecil Rudd MD ECG ORDERABLES Final Resul t [facility] * (ABNORMAL) Hemoglobin A1c (07/23/2024 9:07 AM PEDIATRIC NEUROLOGIST) Hgb A1C 9.8(H) 4.0 - 5.6 % Comment:Testing performed by : [facility], [address] [place] [address]., [id number] Estimated Average Glucose 235 mg/dL [place] Comment: The ADA recommends reporting an estimated Average Glucose (eAG) with all Hemoglobin A1c results using the equation derived from a study of 507 normal and diabetic adults. Minority populations were underrepresented and children were not included. (Diabetes Care 31:6312-8359, 2008). The eAG is not equivalent to a fasting glucose. Testing performed by: [facility], [address] [place] [address]., [id number] Blood 07/23/2024 9:07 AM PEDIATRIC NEUROLOGIST 07/23/2024 9:50 AM PEDIATRIC NEUROLOGIST Juliano Chavarria MD LAB BLOOD ORDERABLES Final Result [facility] [address] Department [place] [address] from Last 3 Months or Most Recently Relevant to Health Maintenance Insurance [facility] MEDICARE HMO Advance Directives For more information, please contact: [phone] * Full Code (Latest Code Status on File) Date Activated Date Inactivated Comments 02/02/2025 4:37 AM 02/03/2025 11:02 PM * Full Code Date Activated Date Inactivated Comments 08/28/2024 7:07 AM 09/02/2024 6:00 PM * Full Code Date Activated Date Inactivated Comments 07/22/2024 3:20 AM 07/25/2024 3:36 PM Care Teams Genetics Teacher Relationship Specialty Start Date End Date Sam Delgado MD PCP - General 05/15/08
--- OUTSIDE RECORDS SUMMARY | 2025-02-11 12:55 | XMS_ITS | Continuity of Care Document ---
Author Organization [facility] Address [address] [place] [address] Phone Care Team Providers Care Silverware Supervisor Name Role Phone Franco OD, Roman Unavailable Unavailable Advance Directives Directive Yes / No Effective Date File Name No Information Encounters Encounter Description Practice Location Reason(s) For Visit Diagnoses Date Provider Providers Copied on Encounter [facility], [address], [place], [place], [id number], [place] tel:[phone] [address] [facility] [place] No Information 8-200 5 Franco OD Roman. [address] , [address], [place], [address], [place]. tel:[phone] Family History Family Member Type Diagnosis Age At Onset No Information Payers Payer name Insurance type Covered alliance party ID Authoriza tion(s) No Information Social [...]
--- OUTSIDE RECORDS SUMMARY | 2025-02-11 12:55 | XMS_ITS | CONTINUITY OF CARE DOCUMENT ---
Author Name hanna ferreira Address Unknown Organization [facility] Address [address] [place] [address] Phone [phone] Care Team Providers Care Crime Scene Investigator Name Role Phone Zak Butt MD Unavailable [phone] Zak Butt MD Unavailable [phone] INSURANCE PROVIDERS Payer name Policy type / Coverage type [place] [employer] party ID A[employer] MEDICARE ADVANTAGE HMO-POS HMO [id number]
--- OUTSIDE RECORDS SUMMARY | 2025-02-11 12:55 | XMS_ITS | Clinical Summary ---
Author Organization [facility] Address [address] [place] [address] Care Team Providers Care Wine And Spirits Clerk Name Role Phone Sam Delgado MD Primary Care Provider [phone] Allergies Active Allergy Reactions Criticality Noted Date Comments Adhesive Tape-Silicones Rash Medium Ciprofloxacin Nausea & Vomiting Low 02/01/2025 Penicillins Nausea & Vomiting Low Tdkdpyq-Tsh-Had Reductase Inhibitors Hives Medium Sulfa Nausea & [...] Date Type Department Care Team Description 02/04/2025 [facility] Post Discharge Follow up phone call [address] [address] Anabelle Soliman RN 02/01/2025 11:26 PM CDT - 02/03/2025 7:02 PM CDT Hospital Encounter [address] [address] Cecil Rudd MD [place], MD Moose Ellis, [...] disease GERD Hyperlipidemia Hyperlipidemia Diabetes mellitus (HCC) Sleep apnea Family History Medical History Relation Name Comments [...] drink = 0.6 oz pur e alcohol) [facility] Utilities Answer Date Recorded In the past 12 months has [employer], [employer], oil, or water [employer] threatened to shut off services in your [...] week 02/03/2025 How often do you attend [facility] or lutheran services? Never 02/03/2025 Do you belong to any clubs o r organizations such as cheondoism groups, unions, fraternal or athletic groups, or [...] any time in the past 12 [facility], were you homeless or living in a senior living (including now)? No 02/03/2025 Personal Safety Answer [...] on file Legal Sex Female 12:42 AM LABEL PINKER Gender Identity Not on file Sexual Orientation [...] 02/03/2025 12:43 PM CDT Plan of Treatment Health Maintenance [...] Ended) 2025 09/14/19 22 Fall Risk Assessment 02/03/2026 02/03/2025 eGFR 02/03/2026 02/03/2025, 06/0 09/2024, 02/01/2025, Additional history exists Procedures Procedure Name Priority [...] CDT HEMOGLOBIN A1C Routine 07/23/2024 9:07 AM LABEL PINKER from Last 3 Months or Most Recently Relevant to Health Maintenance Results * POCT glucose (02/03/2025 5:00 PM CDT) Pathologist [facility] Glucose, POC 199 70 - 199 mg/dL POC Performer [id number] [facility] Blood 02/03/2025 5:00 PM CDT 02/03/2025 5:00 PM CDT Tiffanie Schroeder MD LAB POCT ORDERABLES - DEVICE Final Result Performing Organization Address City/State/[facility] Co de Phone Number [address] Department [place] [address] * TRANSTHORACIC ECHO (TTE) COMPLETE W DOPPLER/CF WO CONTRAST (02/03/2025 2:48 PM CDT) [facility] EF Mod BP 77 % CONS SCIMAGE Anatomical Region Laterality Modality Ultrasound 02/03/2025 2:16 PM CDT Narrative 02/03/2025 3:48 [place] [address] Echocardiogram Report Patient Name: INNA CRAIG C : 1955 Study Date: 02/03/2025 2:16:52 PM Gender: F Tech: Location: [id number] Ref Provider: TIFFANIE SCHROEDER Height(Cm): 152 BSA: [...] Procedure Note Brooke Monae MD - 02/03/2025 [place] [address] Echocardiogram Report Patient Name: INNA CRAIG C : 1955 Study Date: 02/03/2025 2:16:52 PM Gender: F Tech: Location: [address] Provider: TIFFANIE SCHROEDER Height(Cm): 152 BSA: 1.95 [...] Brooke Monae MD 02/03/2025 3:47:39 PM CDT Tiffanie Schroeder MD CV ECHO PROCEDURES Final Resu lt * [...] pathology. Electronically signed by: Dahlia Mary M.D. Tiffanie Schroeder MD IMG MRI PROCEDURES Final Resu lt * POCT glucose (02/03/2025 11:21 AM CDT) Glucose, POC 196 70 - 199 mg/dL POC Performer [id number] [facility] Blood 02/03/2025 11:2 1 AM CDT 02/03/2025 11:21 AM CDT Tiffanie Schroeder MD LAB POCT ORDERABLES - DEVICE Final Result Performing Organization Address [facility] Co de Phone Number FR[place] JOINER [address] [address] [facility] [place] [address] * POCT glucose (02/03/2025 6:36 AM CDT) Glucose, POC 196 70 - 199 mg/dL POC Performer [id number] [facility] Blood 02/03/2025 6:36 AM CDT 02/03/2025 6:36 AM CDT Josh Ferrara MD LAB POCT ORDERABLES - DE VICE Final Result Performing Organization Address City/[facility] Co de Phone Number FR[place]ERICK JOINER [address] Department [place] [address] * eGFR (02/03/2025 4:35 AM CDT) eGFR [...] MD LAB BLOOD ORDERABLES F inal Result [facility] [address] Department [place] [address] * (ABNORMAL) Differential, auto (02/03/2025 4:35 AM CDT) Neutrophil abs 3.80 1.50 - 6.50 K/cumm Imm gran abs 0.06 0.00 - 0.10 K/cumm [facility] Lymphocyte abs 4.68(H) 0.80 - 3.30 K/cumm [facility] Monocyte abs 0.66 0.20 - 0.80 K/cumm [facility] Eosinophil abs 0.34 0.00 - 0.50 K/cumm [facility] Basophil abs 0.08 0.00 - 0.10 K/cumm [facility] Neutrophil pct 39.6 % [facility] Comment: Interpretive Data Percent cell count reference ranges are not reported, since discordance with absolute values may lead to misinterpretation of CBC data. Current Interpretive Data was last revised on 2017. Imm gran pct 0.6 % [facility] Comment: Interpretive Data Percent cell count reference ranges are not reported, since discordance with absolute values may lead to misinterpretation of CBC data. Current Interpretive Data was last revised on 2017. Lymphocyte pct 48.6 % [facility] Comment: Interpretive Data Percent cell count reference ranges are not reported, since discordance with absolute values may lead to misinterpretation of CBC data. Current Interpretive Data was last revised on 2017. Monocyte pct 6.9 % [facility] Comment: Interpretive Data Percent cell count reference ranges are not reported, since discordance with absolute values may lead to misinterpretation of CBC data. Current Interpretive Data was last revised on 2017. Eosinophil pct 3.5 % [facility] Comment: Interpretive Data Percent cell count reference ranges are not reported, since discordance with absolute values may lead to misinterpretation of CBC data. Current Interpretive Data was last revised on 2017. Basophil pct 0.8 % [facility] Comment: Interpretive Data Percent cell count reference ranges are not reported, since discordance with absolute values may lead to misinterpretation of CBC data. Current Interpretive Data was last revised on 2017. Blood 02/03/2025 4:35 AM CDT 02/03/2025 4:46 AM CDT us Herberth Broussard MD LAB BLOOD ORDERABLES F inal Result [facility] [address] [address] Department [place] [address] * (ABNORMAL) CBC with auto differential (02/03/2025 4:35 AM CDT) WBC 9.62 3.80 - 9.90 K/cumm Hgb 12.9 11.9 - 15.5 g/dL [facility] Hct 42.0 35.6 - 45.5 % [facility] Plt 218 150 - 400 K/cumm [facility] MPV 11.9 9.1 - 12.3 fL [facility] RBC 4.94 3.90 - 5.20 M/cumm [facility] MCV 85.0 81.3 - 96.4 fL [facility] MCH 26.1(L) 27.1 - 33.3 pg [facility] MCHC 30.7(L) 32.3 - 35.7 g/dL [facility] RDW CV 14.6 11.1 - 14.9 % [facility] RDW SD 45.4 35.7 - 48.1 fL [facility] NRBC abs 0.00 0.00 - 0.01 K/cumm [facility] Blood 02/03/2025 4:35 AM CDT 02/03/2025 4:46 AM CDT Herberth Broussard MD LAB BLOOD ORDERABLES F inal Result [facility] [address] [address] Department [place] [address] * Basic metabolic panel (02/03/2025 4:35 AM CDT) Sodium 140 135 - 145 mmol/L Potassium, pl 4.2 3.3 - 4.9 mmol/L [facility] Chloride 103 97 - 110 mmol/L [facility] CO2 23 22 - 32 mmol/L [facility] Anion gap 14 2 - 15 mmol/L [facility] BUN 13 6 - 25 mg/dL [facility] Creatinine 0.85 0.60 - 1.10 mg/dL [facility] Glucose 192 70 - 199 mg/dL [facility] Comment: Interpretive Data Fasting glucose >/= 126 [...] 9.2 8.5 - 10.3 mg/dL [facility] Blood 02/03/2025 4:35 AM CDT 02/03/2025 4:45 AM CDT Herberth Broussard MD LAB BLOOD ORDERABLES F inal Result Performing Organization Address [facility] Co de Phone Number FR[place]ER[place] JOINER [address] Department [place] [address] * (ABNORMAL) POCT glucose (02/02/2025 8:12 PM CDT) Glucose, POC 243(H) 70 - 199 mg/dL POC Performer [id number] [facility] Blood 02/02/2025 8:12 PM CDT 02/02/2025 8:12 PM CDT Josh Ferrara MD LAB POCT ORDERABLES - DE VICE Final Result Performing Organization Address [facility] Co de Phone Number FR[place]ERICK JOINER [address] [address] [facility] [place] [address] * POCT glucose (02/02/2025 4:40 PM CDT) Glucose, POC 128 70 - 199 mg/dL POC Performer [id number] [facility] Blood 02/02/2025 4:40 PM CDT 02/02/2025 4:40 PM CDT Josh Ferrara MD LAB POCT ORDERABLES - DE VICE Final Result Performing Organization Address [facility] Co de Phone Number FREDERICK JOINER [address] [address] [facility] [place] [address] * POCT glucose (02/02/2025 11:25 AM CDT) Glucose, POC 187 70 - 199 mg/dL POC Performer [id number] [facility] Blood 02/02/2025 11:2 5 AM CDT 02/02/2025 11:25 AM CDT Josh Ferrara MD LAB POCT ORDERABLES - DE VICE Final Result Performing Organization Address [facility] de Phone Number FR[place]ERICK [phone] [address] [facility] [place] [address] * Vitamin B12 (02/02/2025 9:37 AM CDT) Vitamin B12 321 230 - 1,250 pg/mL Blood 02/02/2025 9:37 AM CDT 02/02/2025 9:43 AM CDT Josh Ferrara MD LAB BLOOD ORDERABLES Fin al Result Performing Organization Address [facility] Phone Number JULIANJENIFER [address] [address] [facility] [place] [address] * Ammonia (02/02/2025 9:37 AM CDT) Ammonia 22 <=50 mcmol/L Blood 02/02/2025 9:37 AM CDT 02/02/2025 9:42 AM CDT Josh Ferrara MD LAB BLOOD ORDERABLES Fin al Result Performing Organization Address [facility] Phone Number [facility] [address] [address] [facility] [place] [address] * CT Chest PE (CTA) W Contrast [...] by: Dahlia Mary M.D. Josh Ferrara MD IMG CT PROCEDURES Final Result * (ABNORMAL) Differential, [...] 2017. Imm gran pct 0.5 % [facility] Comment: Interpretive Data [...] revised on 2017. Eosinophil pct 2.5 % [facility] Comment: Interpretive Data Percent cell count reference [...] MD LAB BLOOD ORDERABLES F inal Result [facility] [address] [address] Department [place] [address] * (ABNORMAL) CBC with auto differential (02/02/2025 7:31 AM CDT) WBC 10.99(H) 3.80 - 9.90 K/cumm Hgb 13.0 11.9 - 15.5 g/dL [facility] Hct 41.1 35.6 - 45.5 % [facility] Plt 233 150 - 400 K/cumm [facility] MPV 11.2 9.1 - 12.3 fL [facility] RBC 4.94 3.90 - 5.20 M/cumm [facility] MCV 83.2 81.3 - 96.4 fL [facility] MCH 26.3(L) 27.1 - 33.3 pg [facility] MCHC 31.6(L) 32.3 - 35.7 g/dL [facility] RDW CV 14.7 11.1 - 14.9 % [facility] RDW SD 44.2 35.7 - 48.1 fL [facility] NRBC abs 0.00 0.00 - 0.01 K/cumm [facility] Blood 02/02/2025 7:31 AM CDT 02/02/2025 7:43 AM CDT us Herberth Broussard MD LAB BLOOD ORDERABLES F inal Result Performing Organization Address [facility]/ZIP Co de Phone Number [place] [address] [address] Department [place] [address] * POCT glucose (02/02/2025 7:01 AM CDT) Pathologist [facility] Glucose, POC 128 70 - 199 mg/dL POC Performer [id number] [facility] Blood 02/02/2025 7:01 AM CDT 02/02/2025 7:01 AM CDT Josh Ferrara MD LAB POCT ORDERABLES - DE VICE Final Result Performing Organization Address [facility] Co de Phone Number FR[place] [address] [address] [place] [address] * Troponin T high-sensitivity (02/02/2025 5:17 AM CDT) [facility] Trop T hs 14 <=14 ng/L Comment: Interpretive Data For further hscTnT resources including the diagnostic algorithm and an aid in interpretation, copy and paste this link: https://nrl.testcatalog.org/show/hsTrop Current Interpretive Data last revised 2020. Blood 02/02/2025 5:17 AM CDT 02/02/2025 5:51 AM CDT Herberth Broussard MD LAB BLOOD ORDERABLES F inal Result Performing Organization Address [facility]/ZIP Co de Phone Number [place] [address] [address] [place] [address] * eGFR (02/02/2025 5:17 AM CDT) [facility] eGFR 89 >=60 mL/min/1. 73 m2 Comment: [...] ORDERABLES F inal Result Performing Organization Address [facility] Co de Phone Number [facility] [address] [address] [place] [address] * TSH (02/02/2025 5:17 AM CDT) Thyroid Stimulating Hormone 2.55 0.30 - 4.20 mcIUnit/mL Blood 02/02/2025 5:17 AM CDT 02/02/2025 5:52 AM CDT Herberth Broussard MD LAB BLOOD ORDERABLES F inal Result Performing Organization Address [facility] Co de Phone Number [facility] [address] [address] Department [place] [address] * Basic metabolic panel (02/02/2025 5:17 AM CDT) Sodium 140 135 - 145 mmol/L Potassium, pl 3.5 3.3 - 4.9 mmol/L [facility] Chloride 103 97 - 110 mmol/L [facility] CO2 22 22 - 32 mmol/L [facility] Anion gap 15 2 - 15 mmol/L [facility] BUN 11 6 - 25 mg/dL [facility] Creatinine 0.73 0.60 - 1.10 mg/dL [facility] Glucose 124 70 - 199 mg/dL [facility] Comment: Interpretive Data Fasting glucose >/= 126 [...] 2022. Calcium 9.1 8.5 - 10.3 mg/dL [facility] Blood 02/02/2025 5:17 AM CDT 02/02/2025 5:52 AM CDT Herberth Broussard MD LAB BLOOD ORDERABLES F inal Result Performing Organization Address City/[facility] Co de Phone Number [place] [address] [address] Department [place] [address] * Troponin T high-sensitivity 6-hour (02/02/2025 4:17 AM CDT) Trop T hs 13 <=14 ng/L Comment: Interpretive Data For further hscTnT resources including the diagnostic algorithm and an aid in interpretation, copy and paste this link: https://nrl.testcatalog.org/show/hsTrop Current Interpretive Data last revised 2020. Trop T hs delta 2 ng/L [facility] Trop T hs interp Insignificant [facility] Blood 02/02/2025 4:17 AM CDT 02/02/2025 5:50 AM CDT Alan Olivas NP LAB BLOOD ORDERABLES Final Resul t Performing Organization Address City/[facility] Co de Phone Number [facility] [address] [address] Department [place] [address] * POCT glucose (02/02/2025 2:20 AM CDT) Pathologist [facility] Glucose, POC 149 70 - 199 mg/dL POC Performer [id number] [facility] Blood 02/02/2025 2:20 AM CDT 02/02/2025 2:20 AM CDT Herberth Broussard MD LAB POCT ORDERABLES - DEVICE Final Result Performing Organization Address City/[facility] Co de Phone Number FR[facility]ERICK JOINER [address] [address] [employer] [place], [place] [address] * Troponin T high-sensitivity 2-hour (02/02/2025 1:06 AM CDT) [facility] Trop T hs 13 <=14 ng/L Comment: Interpretive Data For further hscTnT resources including the diagnostic algorithm and an aid in interpretation, copy and paste this link: https://nrl.testcatalog.org/show/hsTrop Current Interpretive Data last revised 2020. Trop T hs delta See Comment ng/L [facility] Comment:Inappropriate collec tion time to report a delta. Trop T hs pct delta See Comment % [facility]K Comment:Inappropriate collec tion time to report a delta. Trop T hs interp See Comment [facility] Comment:Inappropriate collec tion time to report a delta. Blood 02/02/2025 1:06 AM CDT 02/02/2025 1:06 AM CDT Alan Olivas NP LAB BLOOD ORDERABLES Final Resul t Performing Organization Address City/[facility] Co de Phone Number [place] JOINER [address] [address] [place] [address] * Troponin T high-sensitivity series (baseline, 2hr, 4hr, 6hr) (02/01/2025 9:52 PM CDT) [facility] Trop T hs 11 <=14 ng/L Comment: Interpretive Data For further hscTnT resources including the diagnostic algorithm and an aid in interpretation, copy and paste this link: https://nrl.testcatalog.org/show/hsTrop Current Interpretive Data last revised 2020. Blood 02/01/2025 9:52 PM CDT 02/01/2025 10:10 PM CDT Alan Olivas NP LAB BLOOD ORDERABLES Edited Resu lt - Final Performing Organization Address City/[facility]/ZIP Co de Phone Number FR[place]ER[place] JOINER [address] [address] Department [place] [address] * eGFR (02/01/2025 9:52 PM CDT) eGFR [...] ORDERABLES Final Resul t Performing Organization Address City/[facility]/ZIP Co de Phone Number FREDERICK JOINER [address] [address] Department of [employer] [place], [place] [address] * (ABNORMAL) Differential, auto (02/01/2025 9:52 PM CDT) Neutrophil abs 5.51 1.50 - 6.50 K/cumm Imm gran abs 0.05 0.00 - 0.10 K/cumm [facility] Lymphocyte abs 4.91(H) 0.80 - 3.30 K/cumm [facility] Monocyte abs 0.83(H) 0.20 - 0.80 K/cumm [facility] Eosinophil abs 0.22 0.00 - 0.50 K/cumm [facility] Basophil abs 0.10 0.00 - 0.10 K/cumm [facility] Neutrophil pct 47.4 % [facility] Comment: Interpretive Data Percent cell count reference ranges are not reported, since discordance with absolute values may lead to misinterpretation of CBC data. Current Interpretive Data was last revised on 2017. Imm gran pct 0.4 % [facility] Comment: Interpretive Data Percent cell count reference ranges are not reported, since discordance with absolute values may lead to misinterpretation of CBC data. Current Interpretive Data was last revised on 2017. Lymphocyte pct 42.3 % [facility] Comment: Interpretive Data Percent cell count reference ranges are not reported, since discordance with absolute values may lead to misinterpretation of CBC data. Current Interpretive Data was last revised on 2017. Monocyte pct 7.1 % [facility] Comment: Interpretive Data Percent cell count reference ranges are not reported, since discordance with absolute values may lead to misinterpretation of CBC data. Current Interpretive Data was last revised on 2017. Eosinophil pct 1.9 % [facility] Comment: Interpretive Data Percent cell count reference ranges are not reported, since discordance with absolute values may lead to misinterpretation of CBC data. Current Interpretive Data was last revised on 2017. Basophil pct 0.9 % [facility] Comment: Interpretive Data Percent cell count reference ranges are not reported, since discordance with absolute values may lead to misinterpretation of CBC data. Current Interpretive Data was last revised on 2017. Blood 02/01/2025 9:52 PM CDT 02/01/2025 10:10 PM CDT us Alan Olivas NP LAB BLOOD ORDERABLES Final Resul t [facility] JOINER [address] [address] Department [place] [address] * (ABNORMAL) Urinalysis reflex to microscopic and [...] tendency for uric acid stone formation. Source: [facility] [employer] Current Interpretive Data was last revised on [...] to microscopic UA will be performed. [facility] Urine 02/01/2025 9:52 PM CDT 02/01/2025 10:13 PM CDT Alan Olivas NP LAB MICROBIOLOGY - GENERAL ORDER TACOS Final Result FR[facility]ER[facility] JOINER [address] [address] Department [place] [address] * (ABNORMAL) CBC with auto differential (02/01/2025 9:52 PM CDT) WBC 11.62(H) 3.80 - 9.90 K/cumm Hgb 14.3 11.9 - 15.5 g/dL [facility] Hct 45.2 35.6 - 45.5 % [facility] Plt 271 150 - 400 K/cumm [facility] MPV 11.9 9.1 - 12.3 fL [facility] RBC 5.37(H) 3.90 - 5.20 M/cumm [facility] MCV 84.2 81.3 - 96.4 fL [facility] MCH 26.6(L) 27.1 - 33.3 pg [facility] MCHC 31.6(L) 32.3 - 35.7 g/dL [facility] CH RDW CV 14.7 11.1 - 14.9 % [facility] RDW SD 44.5 35.7 - 48.1 fL [facility] NRBC abs 0.00 0.00 - 0.01 K/cumm [facility] Blood 02/01/2025 9:52 PM CDT 02/01/2025 10:10 PM CDT Alan Olivas NP LAB BLOOD ORDERABLES Final Resul t Performing Organization Address City/[facility] Co de Phone Number FREDERICK JOINER [address] [address] [place] [address] * (ABNORMAL) Urinalysis, microscopic only (02/01/2025 9:52 PM CDT) WBC, ur 6-10(A) 0 - 5 /HPF RBC, ur 3-5(A) 0 - 2 /HPF [facility] Epithelial cells, squamous, ur 1-5 0 - 5 /HPF [facility] Mucous, ur Present(A) [facility] Culture Reflex Comment Reflex conditions for urine culture (WBC >10) not met. [facility] Urine 02/01/2025 9:52 PM CDT 02/01/2025 10:13 PM CDT Alan Olivas NP LAB URINE ORDERABLES Final Resul t Performing Organization Address City/[facility] Co de Phone Number FREDERICK MARISEL [address] [address] [place] [address] * (ABNORMAL) Comprehensive metabolic panel (02/01/2025 9:52 [...] 02/01/2025 10:10 PM CDT us Alan Olivas NP LAB BLOOD ORDERABLES Final Resul t [facility] [address] [address] Department [place] [address] * XR Chest 1 Vw Portable (02/01/2025 [...] mass. Results transmitted to the ER by [facility]. Electronically signed by: Giovanny Saravia M.D. Narrative [...] mass. Results transmitted to the ER by [facility]. Electronically signed by: Giovanny Saravia M.D. Alan Olivas NP IMG CT PROCEDURES Final Result * ECG 12 lead (02/01/2025 5:55 PM CDT) 02/01/2025 5:55 PM CDT Narrative [facility] - 02/01/2025 11:39 PM CDT Vent Rate: 103 bpm RR Interval: 578 msec AL Interval: 135 msec QRS Duration: 82 msec QT Interval: 325 msec QTC Interval: 385 msec P-R-T [place]: 45 - -9 - 35 degrees IMPRESSION: SINUS TACHYCARDIA ABNORMAL RHYTHM ECG NO CHANGE FROM PREVIOUS TRACING NOTED Electronically Signed By: Rashaad Massey MD us Cecil Rudd MD ECG ORDERABLES Final Resul t [facility] * (ABNORMAL) Hemoglobin A1c (07/23/2024 9:07 AM LABEL PINKER) Hgb A1C 9.8(H) 4.0 - 5.6 % Comment:Testing performed by : [facility], [address] [place] [address]., [id number] Estimated Average Glucose 235 mg/dL [facility] VALENCIA Comment: The ADA recommends reporting an estimated Average Glucose (eAG) with all Hemoglobin A1c results using the equation derived from a study of 507 normal and diabetic adults. Minority populations were underrepresented and children were not included. (Diabetes Care 31:4689-2729, 2008). The eAG is not equivalent to a fasting glucose. Testing performed by: [facility], [address] [place] [address]., [id number] Blood 07/23/2024 9:07 AM LABEL PINKER 07/23/2024 9:50 AM LABEL PINKER Juliano Chavarria MD LAB BLOOD ORDERABLES Final Result [facility] VALENCIA [address] [facility] [place] [address] from Last 3 Months or Most Recently Relevant to Health Maintenance Insurance [employer] MEDICARE HMO [facility] MEDICARE ADVANTAGE Advance Directives For more information, please contact: [phone] * Full Code (Latest Code Status on File) Date Activated Date Inactivated Comments 02/02/2025 4:37 AM 02/03/2025 11:02 PM * Full Code Date Activated Date Inactivated Comments 08/28/2024 7:07 AM 09/02/2024 6:00 PM * Full Code Date Activated Date Inactivated Comments 07/22/2024 3:20 AM 07/25/2024 3:36 PM Care Teams Wine And Spirits Clerk Relationship Specialty Start Date End Date Sam Delgado MD PCP - General 05/15/08
--- OUTSIDE RECORDS SUMMARY | 2025-02-11 12:55 | XMS_ITS | Clinical Summary ---
Author Organization [facility] Address [address] [facility], [place] [address] Phone Care Team Providers Care Aerobics Teacher Name Role Phone Unavailable Primary Care Provider [...] on file Legal Sex Female 10:44 AM EMERGENCY RESPONSE COORDINATOR Gender Identity Not on file Sexual [...]
--- OUTSIDE RECORDS SUMMARY | 2025-02-11 12:55 | XMS_ITS | Clinical Summary ---
Author Organization [facility] Address [address] [place] [address] Care Team Providers Care Court Crier Name Role Phone Sam Delgado MD Primary Care Provider [phone] Source Comments [facility] Affiliates and Associated Physician Practices is amultiple site organization consisting of ambulatory clinics and hospital sitesin [place], [place], [place] and [place]. This disclosure is being madepursuant to the Care Everywhere program and may not contain all information available regarding this patient. 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
[2025-02-11 12:57] LABS: Alanine Aminotransferase 20 U/L (6-35); Albumin Level 4.2 g/dL (3.5-5.1); Alkaline Phosphatase 106 U/L (38-126); Anion Gap 11 mmol/L (4-12); Aspartate Amino Transferase 30 U/L (14-36); Bilirubin,Total 0.4 mg/dL (0.2-1.3); Blood Urea Nitrogen 10 mg/dL (7-17); Calcium 9.2 mg/dL (8.4-10.2); Carbon Dioxide 22 mmol/L (22-30); Chloride 103 mmol/L (98-107); Estimated CRCL calculation 57 ml/min; Estimated Glomerular Filt Rate > 60; Glucose 250 mg/dL (65-110); Potassium 3.8 mmol/L (3.4-5.0); Sodium 136 mmol/L (137-145)
[2025-02-11 13:03] VITALS: BP 180/96; PULSE 102; RESP 20; O2SAT 98
--- NOTE | 2025-02-11 13:07 | PC.NURSE ---
called lab to add on D Dimer
[2025-02-11 13:37] LABS: D Dimer 0.39 ug/mL (<0.48)
[2025-02-11 14:07] VITALS: BP 151/86; PULSE 104; RESP 18; O2SAT 100
== END 2025-02-11 14:51 | disposition home or self-care (01) ==
PROVIDERS: Emergency Provider Emergency Medicine; PCP Nurse Practitioner Adult Health
DX: J40 Bronchitis, not specified as acute or chronic (principal); I10 Essential (primary) hypertension; E11.9 Type 2 diabetes mellitus without complications; E03.9 Hypothyroidism, unspecified; Z20.822 Contact with and (suspected) exposure to COVID-19
CPT/HCPCS: 36415; 71046; 71275; 80053; 83880; 84484; 85025; 85380; 87040; 87637; 93005; 94640; 99284; Q9967

== ENCOUNTER 2025-05-18 14:58 | Emergency (ER) | payer MEDICARE, SELFPAY ==
--- NOTE | ~2025-05-18 | XR_ITS ---
EXAMINATION: XR chest 2V, 05/18/2025 15:40 CDT HISTORY: sob x yesterday COMPARISON: No comparisons available. Technique: 2 views obtained. Findings: The lungs are clear, no effusion. No pneumothorax. Heart is normal size. Mediastinal and hilar contours are within normal limits. Bony thorax no acute abnormality. Impression: No acute cardiopulmonary abnormality. Reviewed, dictated and finalized at location A. Impression: No acute cardiopulmonary abnormality.
[2025-05-18 15:01] VITALS: BP 174/78; PULSE 112; RESP 22; TEMP 36.7; O2SAT 97
--- OUTSIDE RECORDS SUMMARY | 2025-05-18 15:01 | XMS_ITS | Clinical Summary ---
Author Organization [facility] Address [address] [facility] [place] [address] Care Team Providers Care Deportation Examiner Name Role Phone Sam Delgado MD Primary Care Provider [phone] [facility] Affiliates and Associated Physician Practices is amultiple site organization consisting of ambulatory clinics and hospital sitesin [place], [place], [place] and [place]. This disclosure is being madepursuant to the Care Everywhere program and may not contain all information available regarding this patient. 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 Gender Identity Not on file Sexual Orientation [...] 2005 ZOSTER VACCINE (1 of 2) 2005 DEPRESSION SCREENING 09/04/2024 MEDICARE AWV CALENDAR YEAR 2024 COVID-19 VACCINE (1 - 2023-2 5 season) 2025 INFLUENZA VACCINE (#1) 2025 Respiratory Syncytial Virus (RSV) Vaccine Pt: [...] CRAIG Subscriber ID:Not on file (Home) Address: [address] [place] [phone] Payer ID:Not on file Group ID:Not on file Type:Self Pay Address: [place], [place] Care Teams Deportation Examiner Relationship Specialty Start Date End Date Sam Delgado MD [address] [place] [address] PCP - General 07/04/22
--- OUTSIDE RECORDS SUMMARY | 2025-05-18 15:01 | XMS_ITS | Clinical Summary ---
Author Organization [facility] Address [address] [place] [address] Care Team Providers Care Mother Helper Name Role Phone Mere Harris NP Primary Care Provider Allergies Active Allergy Reactions Criticality Noted Date Comments Adhesive Tape-Silicones Rash Medium Ciprofloxacin Nausea & Vomiting Low 02/01/2025 Penicillins Nausea & Vomiting Low Mwzfjrm-Bmj-Egf Reductase Inhibitors Hives Medium Sulfa Nausea & [...] injection Inject under the skin SSI Active Active Problems Problem Noted Date Diagnosed Date Fatigue 02/02/2025 Disorientation 02/02/2025 Cough 02/02/2025 SOB (shortness of breath) 02/02/2025 Chest pressure 02/02/2025 Vomiting and diarrhea 02/02/2025 Pyuria 02/02/2025 Hypothyroid 02/02/2025 Ear pain, bilateral 02/02/2025 Type 2 diabetes mellitus, wi long-term current use of insulin 02/02/2025 CARMEN (obstructive sleep apnea) 02/02/2025 Dehydration 02/02/2025 Dizziness 02/02/2025 Urinary tract infection without hematuria, site unspecified 02/01/2025 Sepsis due to anaerobic bacteria 08/28/2024 Abdominal pain 07/22/2024 Hypothyroidism 01/18/2014 Overview (12/09/2016): HYPOTHYROIDISM NOS Encounters Date Type Department Care Team Description 03/21/2025 1:52 PM CDT - 03/21/2025 7:27 PM CDT Emergency [facility] Emergency Department [address] [place] [address] Shortness of breath; Lumbar back pain Discharge Disposition: Discharge to home or [...] drink = 0.6 oz pur e alcohol) [facility] Utilities Answer Date Recorded In the past 12 months has e electric, gas, oil, or water [employer] threatened to shut off services in your home? No 02/03/2025 Social Connection and Isolation Panel Answer Date Recorded In a typical week, how many times do you talk on the phone with family, friends, or neighbors? More than three times a week 02/03/2025 How often do you get togethe r with friends or relatives? More than three times a week 02/03/2025 How often do you attend chur ch or quaker services? Never 02/03/2025 Do you belong to any clubs o r organizations such as sikh groups, unions, fraternal or athletic groups, or [...] any time in the past 12 m [facility], were you homeless or living in a intermediate (including now)? No 02/03/2025 Personal Safety Answer Date Recorded Have you ever been in or are you currently in a harmful physical or emotional relationship or is someone making you feel afraid or unsafe? Denies 03/21/2025 Education Answer Date Recorded What is the highest level of school you have completed or the highest degree you have received? Some college, no degree 02/03/2025 Comments No Sex and Gender Information Value Date Recorded Sex Assigned at Not on file Legal Sex Female 12:42 AM ROLL COVERER Gender Identity Not on file Sexual Orientation Not on file Obstetrics History Last Filed Vital Signs Vital Sign Reading Time Taken Comments Blood Pressure 134/63 03/21/2025 6:00 PM CDT Pulse 87 03/21/2025 6:00 PM CDT Temperature 36.6 C (97.9 F) 03/21/2025 1:29 PM CDT Respiratory Rate 18 03/21/2025 5:30 PM CDT Oxygen Saturation 99% 03/21/2025 6:00 PM CDT Inhaled Oxygen Concentration - - Weight 88 kg (194 lb) 03/21/2025 1:29 PM CDT Height 152.4 cm (5') 03/21/2025 1:29 PM CDT Body Mass Index 37.89 03/21/2025 1:29 PM CDT Plan of Treatment Health Maintenance [...] of 2) 2005 Well Visit 65+ 2020 Hemoglobin A1C 01/20/2025 07/23/2024 Covid-19 Vaccine (5 - 2024-2 6 season) 2025 09/14/2022, 09/14/2021, 04/27/2021, Additional history exists Influenza Vaccine (#1) 2025 09/14/2021 Fall Risk Assessment 02/03/2026 02/03/2025 eGFR 03/21/2026 03/21/2025, 06/10/2024, 02/02/2025, Additional history exists Procedures Procedure Name Priority Date/Time Associated Diagnosis Comments TROPONIN T HIGH-SENSITIVITY 4-HR Timed 03/21/2025 6:07 PM CDT SEPSIS LACTATE WITH REFLEX Timed 03/21/2025 6:02 PM CDT THYROID FUNCTION CASCADE Routine 03/21/2025 3:20 PM CDT PRO B-TYPE NATRIURETIC PEPTIDE STAT 03/21/2025 3:20 PM CDT TROPONIN T HIGH-SENSITIVITY 2-HOUR Timed 03/21/2025 3:20 PM CDT SEPSIS LACTATE WITH REFLEX STAT 03/21/2025 3:20 PM CDT RESPIRATORY PATHOGEN PANEL STAT 03/21/2025 3:20 PM CDT URINALYSIS AND REFLEX TO MICROSCOPIC AND CULTURE STAT 03/21/2025 3:20 PM CDT ECG 12-LEAD Routine 03/21/2025 3:03 PM CDT XR CHEST 1 VIEW ED 03/21/2025 2:01 PM CDT EGFR STAT 03/21/2025 1:38 PM CDT DIFFERENTIAL AUTO STAT 03/21/2025 1:3 8 PM CDT TROPONIN T HIGH-SENSITIVITY SERIES (BASELINE, 2HR, 4HR, 6HR) STAT 03/21/2025 1:38 PM CDT CBC WITH AUTO DIFFERENTIAL STAT 03/21/2025 1:38 PM CDT COMPREHENSIVE METABOLIC PANEL STAT 03/21/2025 1:38 PM CDT ECG 12-LEAD STAT 03/21/2025 1:32 PM CDT HEMOGLOBIN A1C Routine 07/23/2024 9:07 AM ROLL COVERER from Last 3 Months or Most Recently Relevant to Health Maintenance Results * Troponin T high-sensitivity 4-hour (03/21/2025 6:07 PM CDT) Trop T hs 9 <=14 ng/L Comment: Interpretive Data For further hscTnT resources including the diagnostic algorithm and an aid in interpretation, copy and paste this link: https://nrl.testcatalog.org/show/hsTrop Current Interpretive Data last revised 2020. Trop T hs delta -1 ng/L [facility] Trop T hs interp Insignificant [facility] Blood 03/21/2025 6:07 PM CDT 03/21/2025 6:07 PM CDT us Jhon Pride MD LAB BLOOD ORDERABLES Fin al Result [facility] [address] Department [place] [address] * (ABNORMAL) Sepsis Lactate w/ Reflex (03/21/2025 6:02 PM CDT) Sepsis Lactate 2.2(H) 0.7 - 2.0 mmol/L Blood 03/21/2025 6:02 PM CDT 03/21/2025 6:06 PM CDT Justice NOGUEIRA LAB BLOOD ORDERABLES Final Result Performing Organization Address [facility] Co de Phone Number JULIANJENIFER JOINER [address] [facility] [place] [address] * Troponin T high-sensitivity 2-hour (03/21/2025 3:20 PM CDT) Pathologist [facility] Trop T hs 11 <=14 ng/L Comment: Interpretive Data For further hscTnT resources including the diagnostic algorithm and an aid in interpretation, copy and paste this link: https://nrl.testcatalog.org/show/hsTrop Current Interpretive Data last revised 2020. Trop T hs delta 1 ng/L [facility] Trop T hs interp Insignificant [facility] Blood 03/21/2025 3:20 PM CDT 03/21/2025 3:33 PM CDT Jhon Pride MD LAB BLOOD ORDERABLES Fin al Result Performing Organization Address [facility] Co de Phone Number FREDERICK JOINER [address] [place] [address] * (ABNORMAL) Sepsis Lactate w/ Reflex (03/21/2025 3:20 PM CDT) Sepsis Lactate 2.1(H) 0.7 - 2.0 mmol/L Blood 03/21/2025 3:20 PM CDT 03/21/2025 3:24 PM CDT Justice NOGUEIRA LAB BLOOD ORDERABLES Final Result Performing Organization Address [facility] Co de Phone Number [facility] [address] [place] [address] * Pro B-type natriuretic peptide (03/21/2025 3:20 PM CDT) NT-proBNP 112 <=300 pg/mL Comment: Interpretive Comments: A. Dyspnea in Acute Care Setting All Ages: < 300 pg/ml, acute heart failure unlikely. < 50 yrs: 300 - 450 pg/ml, further investigation warranted. > 450 pg/ml, acute heart failure likely. 50 - 74 yrs: 300 - 900 pg/ml, further investigation warranted. > 900 pg/ml, acute heart failure likely . > or = 75 yrs: 450 - 1800 pg/ml, further investigation warranted. > 1800 pg/ml, acute heart failure likely. B. Non-acute Setting < 75 yrs < 125 pg/ml, rules out heart failure. > or = 125 pg/ml, further investigation warranted. > or = 75 yrs < 450 pg/ml, rules out heart failure. > or = 450 pg/ml, further investigation warranted. - Knowledge of each individual patient's NT-proBNP range may be more useful than using similar cut-points for every patient. Please note that marked elevations in NT-proBNP levels may be observed in state other than Left Ventricular Congestive Failure, including: acute coronary syndromes, right heart strain/failure (including pulmonary embolism and cor pulmonale), critical illness, renal failure, as well as advanced age. - References: 1. Tracy SARMIENTO et.al. Eur Heart J. 2006:27:330-337. 2. Lucie RW, Rosetta AM. J. AM Kylah Cardiol: Cardiovasc Imag. 2009;2: 216- 225. Interpretive Data Last Revised Date: 2018. Blood 03/21/2025 3:20 PM CDT 03/21/2025 3:33 PM CDT us Justice NOGUEIRA LAB BLOOD ORDERABLES Final Result FREDERICK JOINER [address] [place] [address] * Thyroid Function [place] (03/21/2025 3:20 PM CDT) TSH 2.64 0.30 - 4.20 mcIUnit/mL Blood 03/21/2025 3:20 PM CDT 03/21/2025 3:33 PM CDT Justice NOGUEIRA LAB BLOOD ORDERABLES Final Result Performing Organization Address [facility] Co de Phone Number FREDERICK JOINER [address] [place] [place] [address] * (ABNORMAL) Urinalysis reflex to microscopic and culture Urine (03/21/2025 3:20 PM CDT) Pathologist [facility] Color, ur Straw Yellow Clarity, ur Clear Clear CERN[facility] CH Specific gravity, ur 1.005 1.003 - 1.030 CERNER CH pH, urine 5.5 CERNER CH Comment: Interpretive Data U rine pH is affected by diet, medications, systemic acid-base disturbances, and renal tubular function. pH may affect urinary stone formation. For example, urine pH below 6.0 may help reduce the tendency for calcium phosphate stones and pH greater than 6.0 may reduce the tendency for uric acid stone formation. Source: [facility] Current Interpretive Data was last revised on 2017 Protein, ur ql Negative Negative CERNER CH Glucose, ur ql 4+(A) Negative [facility] Ketones, ur Negative Negative [facility] Bilirubin, ur Negative Negative [facility] Blood, ur Negative Negative [facility] Urobilinogen, ur <2.0 <2.0 mg/dL [facility] Nitrite, ur Negative Negative [facility] Leukocyte esterase, ur Negative Negative CERN[facility] CH UA reflex comment Reflex conditions for microscopic UA and culture not met. CERNER CH Urine 03/21/2025 3:20 PM CDT 03/21/2025 3:25 PM CDT Justice NOGUEIRA LAB MICROBIOLOGY - GE NERAL ORDERABLES Final Result Performing Organization Address City/[facility]/ZIP Co de Phone Number FREDERICK JOINER [address] [place] [address] * Respiratory pathogen panel Nasopharyngeal (03/21/2025 3:20 PM CDT) Pathologist [facility] Influenza A RNA Not Detected Not Detected Influenza B RNA Not Detected Not Detected CERNER CH RSV RNA Not Detected Not Detected CERNER CH COVID-19 RNA Not Detected Not Detected CERNER CH Coronavirus 229E RNA Not Detected Not Detected CERNER Coronavirus HKU1 RNA Not Detected Not Detected CERNER Coronavirus NL63 RNA Not Detected Not Detected CERNER Coronavirus OC43 RNA Not Detected Not Detected CERNER Adenovirus DNA Not Detected Not Detected CERNER Metapneumovirus RNA Not Detected Not Detected CERNER Rhinovirus/Enterov irus RNA Not Detected Not Detected CERNER Parainfluenza 1 RNA Not Detected Not Detected CERNER Parainfluenza 2 RNA Not Detected Not Detected CERNER Parainfluenza 3 RNA Not Detected Not Detected CERNER Parainfluenza 4 RNA Not Detected Not Detected CERN[facility] B. pertussis DNA Not Detected Not Detected [facility] B. parapertussis DNA Not Detected Not Detected [facility] C. pneumoniae DNA Not Detected Not Detected [facility] M. pneumoniae DNA Not Detected Not Detected [facility] Comment: Interpretive Data The [employer] FilmArray Respiratory Panel (RP2.1) assay is a [...] assay has FDA clearance for testing of SANDBLASTING SUPERVISOR swabs. The performance characteristics of this assay have been determined by [facility]. Current interpretive data was last revised on 2021. Nasopharyngeal 03/21/2025 3: 20 PM CDT 03/21/2025 3:24 PM CDT Narrative [facility] - 03/21/2025 4:22 PM CDT Is the Patient experiencing symptoms consistent with COVID?->Yes Surveillance testing for transplant patient?->No Justice NOGUEIRA LAB MICROBIOLOGY - [facility] ORDERABLES Final Result Performing Organization Address City/State/[facility] Co in Phone Number FREDERICK [address] [facility] Department [place] [address] * ECG 12 lead (03/21/2025 3:03 PM CDT) 03/21/2025 3:03 PM CDT Narrative [facility] - 03/22/2025 8:32 AM CDT Vent Rate: 89 bpm RR Interval: 673 msec TN Interval: 129 msec QRS Duration: 90 msec QT Interval: 353 msec QTC Interval: 399 msec P-R-T [place]: 11 - 69 - 14 degrees IMPRESSION: SINUS RHYTHM NORMAL ECG Electronically Signed By: Alexei Alberts MD, [facility] Klever Bell MD ECG ORDERABLES Final Resul t Performing Organization Address City/State/[facility] Co de Phone Number [facility] * XR Chest 1 Vw Portable (If patient hemodynamically UNstable or UNable to ambulate) (03/21/2025 2:01PM CDT) Anatomical Region Laterality Modality Body, Chest N/A Computed Radiogr aphy 03/21/2025 2:16 PM CDT Impressions 03/21/2025 2:16 PM CDT No active disease. Electronically signed by: Stu Mejia M.D. Narrative 03/21/2025 2:16 PM CDT EXAMINATION: XR CHEST 1 VIEW DATE: 03/21/2025 1:40 PM HISTORY: Shortness of breath FINDINGS: The lungs are clear. Heart size and pulmonary vascularity are normal. Procedure Note Stu Mejia MD - 03/21/2025 EXAMINATION: XR CHEST 1 VIEW DATE: 03/21/2025 1:40 PM HISTORY: Shortness of breath FINDINGS: The lungs are clear. Heart size and pulmonary vascularity are normal. IMPRESSION: No active disease. Electronically signed by: Stu Mejia M.D. us Jhon Pride MD IMG XR PROCEDURES Final Result * Troponin T high-sensitivity series (baseline, 2hr, 4hr, 6hr) (03/21/2025 1:38 PM CDT) Trop T hs 10 <=14 ng/L Comment: Interpretive Data For further hscTnT resources including the diagnostic algorithm and an aid in interpretation, copy and paste this link: https://nrl.testcatalog.org/show/hsTrop Current Interpretive Data last revised 2020. Blood 03/21/2025 1:38 PM CDT 03/21/2025 1:51 PM CDT us Jhon Pride MD LAB BLOOD ORDERABLES Andrez evelin Result - Final Performing Organization Address City/[facility]/ZIP Co de Phone Number FR[facility]ERICK [address] Department [place] [address] * eGFR (03/21/2025 1:38 PM CDT) eGFR >90 >=60 mL/min/1. 73 m2 Comment: [...] interpretive data was last reviewed 2021. Blood 03/21/2025 1:38 PM CDT 03/21/2025 1:53 PM CDT us Jhon Pride MD LAB BLOOD ORDERABLES Fin al Result [facility] [address] [place] [address] * (ABNORMAL) Differential, auto (03/21/2025 1:38 PM CDT) Neutrophil abs 6.68(H) 1.50 - 6.50 K/cumm Imm gran abs 0.09 0.00 - 0.10 K/cumm [facility] Lymphocyte abs 3.84(H) 0.80 - 3.30 K/cumm [facility] Monocyte abs 0.71 0.20 - 0.80 K/cumm [facility] Eosinophil abs 0.22 0.00 - 0.50 K/cumm [facility] Basophil abs 0.05 0.00 - 0.10 K/cumm [facility] Neutrophil pct 57.7 % [facility] Comment: Interpretive Data Percent cell count reference ranges are not reported, since discordance with absolute values may lead to misinterpretation of CBC data. Current Interpretive Data was last revised on 2017. Imm gran pct 0.8 % [facility] Comment: Interpretive Data Percent cell count reference ranges are not reported, since discordance with absolute values may lead to misinterpretation of CBC data. Current Interpretive Data was last revised on 2017. Lymphocyte pct 33.1 % [facility] Comment: Interpretive Data Percent cell count reference ranges are not reported, since discordance with absolute values may lead to misinterpretation of CBC data. Current Interpretive Data was last revised on 2017. Monocyte pct 6.1 % [facility] Comment: Interpretive Data Percent cell count reference ranges are not reported, since discordance with absolute values may lead to misinterpretation of CBC data. Current Interpretive Data was last revised on 2017. Eosinophil pct 1.9 % [facility] Comment: Interpretive Data Percent cell count reference ranges are not reported, since discordance with absolute values may lead to misinterpretation of CBC data. Current Interpretive Data was last revised on 2017. Basophil pct 0.4 % [facility] Comment: Interpretive Data Percent cell count reference ranges are not reported, since discordance with absolute values may lead to misinterpretation of CBC data. Current Interpretive Data was last revised on 2017. Blood 03/21/2025 1:38 PM CDT 03/21/2025 1:51 PM CDT us Jhon Pride MD LAB BLOOD ORDERABLES Fin al Result [facility] [address] Department [place] [address] * (ABNORMAL) CBC with auto differential (03/21/2025 1:38 PM CDT) WBC 11.59(H) 3.80 - 9.90 K/cumm Hgb 13.4 11.9 - 15.5 g/dL [facility] Hct 42.8 35.6 - 45.5 % [facility] Plt 289 150 - 400 K/cumm [facility] MPV 10.4 9.1 - 12.3 fL CERNER RBC 5.05 3.90 - 5.20 M/cumm [facility] MCV 84.8 81.3 - 96.4 fL [facility] CH MCH 26.5(L) 27.1 - 33.3 pg CERNER MCHC 31.3(L) 32.3 - 35.7 g/dL [facility] CH RDW CV 14.9 11.1 - 14.9 % [facility] RDW SD 46.3 35.7 - 48.1 fL CERNER NRBC abs 0.00 0.00 - 0.01 K/cumm [facility] Blood 03/21/2025 1:38 PM CDT 03/21/2025 1:51 PM CDT us Jhon Pride MD LAB BLOOD ORDERABLES Fin al Result [facility] [address] [address] Department [place] [address] * (ABNORMAL) Comprehensive metabolic panel (03/21/2025 1:38 PM CDT) Sodium 135 135 - 145 mmol/L Potassium, pl 4.5 3.3 - 4.9 mmol/L [facility] Chloride 101 97 - 110 mmol/L [facility] CO2 20(L) 22 - 32 mmol/L [facility] Anion gap 14 2 - 15 mmol/L [facility] BUN 13 6 - 25 mg/dL [facility] Creatinine 0.67 0.60 - 1.10 mg/dL [facility] Glucose 325(H) 70 - 199 mg/dL [facility] Comment: Interpretive Data Fasting glucose >/= [...] interpretive data was last revised 2022. Calcium 9.5 8.5 - 10.3 mg/dL [facility] Bilirubin, total 0.2 0.1 - 1.2 mg/dL [facility] Protein, pl 6.6 6.5 - 8.5 g/dL [facility] Albumin 3.8 3.5 - 5.0 g/dL [facility] Alk phos 134(H) 40 - 130 Units/L [facility] ALT 9 7 - 45 Units/L [facility] AST 14 10 - 45 Units/L [facility] Blood 03/21/2025 1:38 PM CDT 03/21/2025 1:51 PM CDT Jhon Pride MD LAB BLOOD ORDERABLES Fin al Result Performing Organization Address [facility] Co de Phone Number [facility] [address] [place] [address] * ECG 12 lead (03/21/2025 1:32 PM CDT) 03/21/2025 1:32 PM CDT Narrative [facility] - 03/21/2025 3:08 PM CDT Vent Rate: 94 bpm RR Interval: 632 msec TN Interval: 138 msec QRS Duration: 89 msec QT Interval: 349 msec QTC Interval: 401 msec P-R-T [place]: 44 - -7 - 57 degrees IMPRESSION: SINUS RHYTHM POSSIBLE ANTERIOR MYOCARDIAL INFARCTION , OF INDETERMINATE AGE INFERIOR MYOCARDIAL INFARCTION , PROBABLY OLD Electronically Signed By: Alexei Alberts MD, [facility] Jhon Pride MD ECG ORDERABLES Final Re sult Performing Organization Address [facility] Co de Phone Number [employer] [facility] * (ABNORMAL) Hemoglobin A1c (07/23/2024 9:07 AM ROLL COVERER) Hgb A1C 9.8(H) 4.0 - 5.6 % Comment:Testing performed by : [facility], [address] [place] [address]., [id number] Estimated Average Glucose 235 mg/dL [facility] Comment: The ADA recommends reporting an estimated Average Glucose (eAG) with all Hemoglobin A1c results using the equation derived from a study of 507 normal and diabetic adults. Minority populations were underrepresented and children were not included. (Diabetes Care 31:2988-7555, 2008). The eAG is not equivalent to a fasting glucose. Testing performed by: [facility], [address] [place] [address]., [address] Blood 07/23/2024 9:07 AM ROLL COVERER 07/23/2024 9:50 AM ROLL COVERER Juliano Chavarria MD LAB BLOOD ORDERABLES Final Result [facility] [address] [facility] Department [place] [address] from Last 3 Months or Most Recently Relevant to Health Maintenance Insurance [facility] MEDICARE [facility] Address: [facility] [address] [place] [address] [facility] MEDICARE [facility]VANTAGE [facility] MEDIC[facility] Address: [facility] [address] [place] [address] Advance Directives For more information, please contact: [phone] * Full Code (Latest Code Status on File) Date Activated Date Inactivated Comments 02/02/2025 4:37 AM 02/03/2025 11:02 PM * Full Code Date Activated Date Inactivated Comments 08/28/2024 7:07 AM 09/02/2024 6:00 PM * Full Code Date Activated Date Inactivated Comments 07/22/2024 3:20 AM 07/25/2024 3:36 PM Care Teams Mother Helper Relationship Specialty Start Date End Date Mere Harris NP [address] [facility] [address] [place] [id number] PCP - General Urology 03/21/25
--- OUTSIDE RECORDS SUMMARY | 2025-05-18 15:01 | XMS_ITS | Clinical Summary ---
Author Organization [facility] Address [address] [facility], [place] [address] Phone Care Team Providers Care Barrel Drainer Name Role Phone Unavailable Primary Care Provider [...] on file Legal Sex Female 10:44 AM ART CRITIC Gender Identity Not on file Sexual Orientation [...] 2005 OSTEOPOROSIS SCREENING 2020 INFLUENZA VACCINE (#1) 2025 RSV VACCINE (60+ or ) (1 - 1-dose 75+ series) 2030 Insurance
--- NOTE | 2025-05-18 15:06 | ECG_ITS ---
Test Date: 2025-05-18 15:09:01 Measurements Intervals [place] Rate: 110 P: 48 TX: 126 QRS: -15 QRSD: 86 T: 50 QT: 328 QTc: 444 Interpretive Statements SINUS TACHYCARDIA POOR R-WAVE PROGRESSION NONSPECIFIC ST ABNORMALITY ABNORMAL ECG Compared to ECG 02/11/2025 11:20:50 Myocardial infarct finding no longer present Electronically Signed On 05-19-2025 07:47:05 CDT by Jacob Garcia M.D.
[2025-05-18 15:26] LABS: Hematocrit 42.2 % (37.0-47.0); Hemoglobin 13.7 g/dL (12.0-15.0); Immature Granulocyte Percent A 0.7 % (0-0.5); Lymphocytes Absolute Auto 3.26 K/mm3 (0.9-3.2); Mean Corpuscular HGB Conc 32.5 g/dl (32-36); Mean Corpuscular Hemoglobin 26.8 pg (26-34); Mean Corpuscular Volume 82.4 fl (80-100); Nucleated Red Blood Cells Absolute Auto 0.000 K/mm3 (0.0-0.012); Nucleated Red Blood Cells Perc 0.0 % (0.0-0.2); Platelet Count Result 238 k/mm3 (150-375); Red Blood Count 5.12 M/mm3 (4.2-5.4); White Blood Count 10.7 K/mm3 (4.5-10.0)
[2025-05-18 15:39] LABS: Alanine Aminotransferase 19 U/L (6-35); Albumin Level 4.1 g/dL (3.5-5.1); Alkaline Phosphatase 127 U/L (38-126); Anion Gap 10 mmol/L (4-12); Aspartate Amino Transferase 25 U/L (14-36); Bilirubin,Total 0.3 mg/dL (0.2-1.3); Blood Urea Nitrogen 11 mg/dL (7-17); Calcium 9.4 mg/dL (8.4-10.2); Carbon Dioxide 23 mmol/L (22-30); Chloride 104 mmol/L (98-107); Estimated CRCL calculation 63 ml/min; Estimated Glomerular Filt Rate > 60; Glucose 340 mg/dL (65-110); Potassium 3.6 mmol/L (3.4-5.0); Sodium 137 mmol/L (137-145); Total Protein 6.9 g/dL (6.3-8.2)
--- OUTSIDE RECORDS SUMMARY | 2025-05-18 17:33 | XMS_ITS | Clinical Summary ---
Author Organization [facility] Address [address] [place] [address] Care Team Providers Care Hot Pipe Gauger Name Role Phone Mere Harris NP Primary Care Provider Allergies Active Allergy Reactions Criticality Noted Date Comments Adhesive Tape-Silicones Rash Medium Ciprofloxacin Nausea & Vomiting Low 02/01/2025 Penicillins Nausea & Vomiting Low Cccyrsz-Shb-Kgn Reductase Inhibitors Hives Medium Sulfa Nausea & [...] CDT - 03/21/2025 7:27 PM CDT Emergency [facility] Emergency Department [address] [place] [address] Shortness of breath; Lumbar back pain Discharge [...] = 0.6 oz pur e alcohol) [facility] Utilities Answer Date Recorded In the past 12 months has e electric, gas, oil, or water [employer] threatened to shut off services in your [...] often do you attend chur ch or mu-ism services? Never 02/03/2025 Do you belong to any clubs o r organizations such as hoahaoism groups, unions, fraternal or athletic groups, or [...] any time in the past 12 m [facility], were you homeless or living in a half-way (including now)? 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 Gender Identity Not on file Sexual Orientation [...] CDT HEMOGLOBIN A1C Routine 07/23/2024 9:07 AM STORAGE SPECIALIST from Last 3 Months or Most Recently [...] LAB BLOOD ORDERABLES Fin al Result [facility] [address] Department [place] [address] * (ABNORMAL) Sepsis Lactate w/ Reflex (03/21/2025 6:02 PM CDT) Sepsis Lactate 2.2(H) 0.7 - 2.0 mmol/L Blood 03/21/2025 6:02 PM CDT 03/21/2025 6:06 PM CDT Justice NOGUEIRA LAB BLOOD ORDERABLES Final Result Performing Organization Address [facility] Co de Phone Number JULIANJENIFER JOINER [address] [facility] [place] [address] * Troponin T high-sensitivity 2-hour (03/21/2025 3:20 PM CDT) Pathologist [facility] [place] Trop T hs 11 <=14 ng/L Comment: Interpretive Data For further hscTnT resources including the diagnostic algorithm and an aid in interpretation, copy and paste this link: https://nrl.testcatalog.org/show/hsTrop Current Interpretive Data last revised 2020. Trop T hs delta 1 ng/L [facility] Trop T hs interp Insignificant [facility] Blood 03/21/2025 3:20 PM CDT 03/21/2025 3:33 PM CDT Jhon Pride MD LAB BLOOD ORDERABLES Fin al Result Performing Organization Address [facility] Co de Phone Number FREDERICK JOINER [address] [place] [address] * (ABNORMAL) Sepsis Lactate w/ Reflex (03/21/2025 3:20 PM CDT) Sepsis Lactate 2.1(H) 0.7 - 2.0 mmol/L Blood 03/21/2025 3:20 PM CDT 03/21/2025 3:24 PM CDT Justice NOGUEIRA LAB BLOOD ORDERABLES Final Result Performing Organization Address [facility] Co de Phone Number [place] [address] [place] [address] * Pro B-type natriuretic peptide (03/21/2025 3:20 [...] LAB BLOOD ORDERABLES Final Result FR[place]ERICK JOINER [address] [place] [address] * Thyroid Function [place] (03/21/2025 3:20 PM CDT) TSH 2.64 0.30 - 4.20 mcIUnit/mL Blood 03/21/2025 3:20 PM CDT 03/21/2025 3:33 PM CDT Justice NOGUEIRA LAB BLOOD ORDERABLES Final Result Performing Organization Address [facility] Co de Phone Number FREDERICK JOINER [address] [place] [place] [address] * (ABNORMAL) Urinalysis reflex to microscopic and culture Urine (03/21/2025 3:20 PM CDT) Pathologist [facility] [place] Color, ur Straw Yellow Clarity, ur Clear [...] tendency for uric acid stone formation. Source: [facility] Current Interpretive Data was last revised on [...] NERAL ORDERABLES Final Result Performing Organization Address City/[facility]/ZIP Co de Phone Number FR[place]ERICK JOINER [address] [place] [address] * Respiratory pathogen panel Nasopharyngeal (03/21/2025 3:20 PM CDT) Pathologist [facility] [place] Influenza A [...] B. pertussis DNA Not Detected Not Detected [facility] B. parapertussis DNA Not Detected Not Detected [facility] C. pneumoniae DNA Not Detected Not Detected [facility] M. pneumoniae DNA Not Detected Not Detected [facility] Comment: Interpretive Data The [employer] FilmArray Respiratory Panel (RP2.1) assay is a [...] assay has FDA clearance for testing of REEL HOOKER swabs. The performance characteristics of this assay have been determined by [facility]. Current interpretive data was last revised on 2021. Nasopharyngeal 03/21/2025 3: 20 PM CDT 03/21/2025 3:24 PM CDT Narrative [facility] - 03/21/2025 4:22 PM CDT Is the Patient experiencing symptoms consistent with COVID?->Yes Surveillance testing for transplant patient?->No Justice NOGUEIRA LAB MICROBIOLOGY - [facility] ORDERABLES Final Result Performing Organization Address City/State/[facility] Co or Phone Number [place] [address] [facility] Department [place] [address] * ECG 12 lead (03/21/2025 3:03 PM CDT) 03/21/2025 3:03 PM CDT Narrative [facility] - 03/22/2025 8:32 AM CDT Vent Rate: 89 bpm RR Interval: 673 msec ND Interval: 129 msec QRS Duration: 90 msec QT Interval: 353 msec QTC Interval: 399 msec P-R-T Hathaway: 11 - 69 - 14 degrees IMPRESSION: SINUS RHYTHM NORMAL ECG Electronically Signed By: Alexei Alberts MD, [facility] Klever Bell MD ECG ORDERABLES Final Resul t Performing Organization Address City/State/[facility] Co de Phone Number [facility] * XR Chest 1 Vw Portable (If [...] evelin Result - Final Performing Organization Address City/[facility]/ZIP Co de Phone Number [place] [place] [address] * eGFR (03/21/2025 1:38 PM CDT) eGFR [...] LAB BLOOD ORDERABLES Fin al Result [place] [address] [place] [address] * (ABNORMAL) Differential, auto (03/21/2025 1:38 PM CDT) Neutrophil abs 6.68(H) 1.50 - 6.50 K/cumm Imm gran abs 0.09 0.00 - 0.10 K/cumm [facility] Lymphocyte abs 3.84(H) 0.80 - 3.30 K/cumm [facility] Monocyte abs 0.71 0.20 - 0.80 K/cumm [facility] Eosinophil abs 0.22 0.00 - 0.50 K/cumm [facility] Basophil abs 0.05 0.00 - 0.10 K/cumm [facility] Neutrophil pct 57.7 % [facility] Comment: Interpretive Data Percent cell count reference ranges are not reported, since discordance with absolute values may lead to misinterpretation of CBC data. Current Interpretive Data was last revised on 2017. Imm gran pct 0.8 % [facility] Comment: Interpretive Data Percent cell count reference ranges are not reported, since discordance with absolute values may lead to misinterpretation of CBC data. Current Interpretive Data was last revised on 2017. Lymphocyte pct 33.1 % [facility] Comment: Interpretive Data Percent cell count reference ranges are not reported, since discordance with absolute values may lead to misinterpretation of CBC data. Current Interpretive Data was last revised on 2017. Monocyte pct 6.1 % [facility] Comment: Interpretive Data Percent cell count reference ranges are not reported, since discordance with absolute values may lead to misinterpretation of CBC data. Current Interpretive Data was last revised on 2017. Eosinophil pct 1.9 % [facility] Comment: Interpretive Data Percent cell count reference ranges are not reported, since discordance with absolute values may lead to misinterpretation of CBC data. Current Interpretive Data was last revised on 2017. Basophil pct 0.4 % [facility] Comment: Interpretive Data Percent cell count reference ranges are not reported, since discordance with absolute values may lead to misinterpretation of CBC data. Current Interpretive Data was last revised on 2017. Blood 03/21/2025 1:38 PM CDT 03/21/2025 1:51 PM CDT us Jhon Pride MD LAB BLOOD ORDERABLES Fin al Result [facility] [address] Department [place] [address] * (ABNORMAL) CBC with auto differential (03/21/2025 1:38 PM CDT) WBC 11.59(H) 3.80 - 9.90 K/cumm Hgb 13.4 11.9 - 15.5 g/dL [facility] Hct 42.8 35.6 - 45.5 % [facility] Plt 289 150 - 400 K/cumm CERNER [...] NRBC abs 0.00 0.00 - 0.01 K/cumm [facility] Blood 03/21/2025 1:38 PM CDT 03/21/2025 1:51 PM CDT us Jhon Pride MD LAB BLOOD ORDERABLES Fin al Result [facility] [address] Department [place] [address] * (ABNORMAL) Comprehensive metabolic panel (03/21/2025 1:38 PM CDT) Sodium 135 135 - 145 mmol/L Potassium, pl 4.5 3.3 - 4.9 mmol/L [facility] Chloride 101 97 - 110 mmol/L [facility] CO2 20(L) 22 - 32 mmol/L [facility] Anion gap 14 2 - 15 mmol/L [facility] BUN 13 6 - 25 mg/dL [facility] Creatinine 0.67 0.60 - 1.10 mg/dL [facility] Glucose 325(H) 70 - 199 mg/dL [facility] Comment: Interpretive Data Fasting [...] ORDERABLES Fin al Result Performing Organization Address [facility] Co de Phone Number [facility] [address] Department [place] [address] * ECG 12 lead (03/21/2025 1:32 PM CDT) 03/21/2025 1:32 PM CDT Narrative [facility] - 03/21/2025 3:08 PM CDT Vent Rate: 94 bpm RR Interval: 632 msec ND Interval: 138 msec QRS Duration: 89 msec QT Interval: 349 msec QTC Interval: 401 msec P-R-T Hathaway: 44 - -7 - 57 degrees IMPRESSION: SINUS RHYTHM POSSIBLE ANTERIOR MYOCARDIAL INFARCTION , OF INDETERMINATE AGE INFERIOR MYOCARDIAL INFARCTION , PROBABLY OLD Electronically Signed By: Alexei Alberts MD, [facility] Jhon Pride MD ECG ORDERABLES Final Re sult Performing Organization Address [facility] Co de Phone Number [employer] [facility] * (ABNORMAL) Hemoglobin A1c (07/23/2024 9:07 AM STORAGE SPECIALIST) Hgb A1C 9.8(H) 4.0 - 5.6 % Comment:Testing performed by : [facility], [address] [place] [address]., [id number] Estimated Average Glucose 235 mg/dL FR[facility]ERICK VALENCIA Comment: The ADA recommends reporting an estimated Average Glucose (eAG) with all Hemoglobin A1c results using the equation derived from a study of 507 normal and diabetic adults. Minority populations were underrepresented and children were not included. (Diabetes Care 31:4406-0997, 2008). The eAG is not equivalent to a fasting glucose. Testing performed by: [facility], [address] [place] [address]., [id number] Blood 07/23/2024 9:07 AM STORAGE SPECIALIST 07/23/2024 9:50 AM STORAGE SPECIALIST Juliano Chavarria MD LAB BLOOD ORDERABLES Final Result FREDERICK VALENCIA [address] [facility] Department [place] [address] from Last 3 Months or Most Recently Relevant to Health Maintenance Insurance [facility] MEDICARE ADVANTAGE [facility] MEDICARE ADVANTAGE Advance Directives For more information, please contact: [phone] * Full Code (Latest Code Status on File) Date Activated Date Inactivated Comments 02/02/2025 4:37 AM 02/03/2025 11:02 PM * Full Code Date Activated Date Inactivated Comments 08/28/2024 7:07 AM 09/02/2024 6:00 PM * Full Code Date Activated Date Inactivated Comments 07/22/2024 3:20 AM 07/25/2024 3:36 PM Care Teams Hot Pipe Gauger Relationship Specialty Start Date End Date Mere Harris NP [address] [place] [id number] PCP - General Urology 03/21/25
--- OUTSIDE RECORDS SUMMARY | 2025-05-18 17:33 | XMS_ITS | Clinical Summary ---
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
--- OUTSIDE RECORDS SUMMARY | 2025-05-18 17:33 | XMS_ITS | Clinical Summary ---
Author Organization [facility] Address [address] [facility] [place] [address] Care Team Providers Care Ware Dresser Name Role Phone Sam Delgado MD Primary Care Provider [phone] Source Comments [facility],non-[facility] Affiliates and Associated Physician Practices is amultiple site organization consisting of ambulatory clinics and hospital sitesin [place], [place], [place] and [place]. This disclosure is being madepursuant to the Care Everywhere program and may not contain all information available regarding this patient. 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
[2025-05-18] MEDS: SODIUM CHLORIDE 0.9% IV 1,000 ML 999 ML IV CONT (17:45)
[2025-05-18] MEDS: MORPHINE SULFATE (*CRX) 4 MG/ML INJ IV PUSH (17:47)
[2025-05-18 17:49] VITALS: BP 158/90; PULSE 100; RESP 20; O2SAT 97
[2025-05-18 18:37] LABS: Troponin I < 0.012 ng/mL (0.000-0.034)
--- NOTE | 2025-05-18 19:24 | ED_ITS ---
HPI - General Adult General Chief complaint: Shortness of Breath/Dyspnea Stated complaint: Shortness of breath, back pain, dizzy Time Seen by Provider: 05/18/25 17:21 History of Present Illness HPI narrative: Patient is a 69-year-old female who presents ER with low back pain. Started yesterday but got better and then reoccurred this morning. Aching in nature. No fall. No numbness or tingling to legs or groin. No issues with urination/defecation. She has not taken any pain medication to try to treat it. Patient also complained that she has some dry eyes. She also reports that she has occasional shortness of breath when she exerts herself. No chest pain. She is without nausea or vomiting. No pain with deep breath. No cough. Related Data Home Medications ?Medication ?Instructions ?Recorded ?Confirmed ?Last Taken ?Type clobetasol 0.05 % topical cream 1 applic topical DAILY PRN 06/27/22 05/13/25 04/29/24 20:00 History irritation Allergies Allergy/AdvReac Type Severity Reaction Status Date / Time latex Allergy Mild Rash Verified 05/13/25 14:37 adhesive Allergy Unknown Unknown Verified 05/13/25 14:37 clarithromycin Allergy Unknown Unknown Verified 05/13/25 14:37 gabapentin Allergy Unknown Unknown Verified 05/13/25 14:37 metformin Allergy Unknown diarrhea Verified 05/13/25 14:37 oseltamivir Allergy Unknown Unknown Verified 05/13/25 14:37 Penicillins Allergy Unknown Unknown Verified 05/13/25 14:37 Sulfa (Sulfonamide Allergy Unknown Unknown Verified 05/13/25 14:37 Antibiotics) Review of Systems 2 Review of Systems: All systems reviewed & are unremarkable except as noted in HPI and below Constitutional: Constitutional: Reports no additional constitutional complaints Cardiovascular: Cardiovascular: Reports no additional cardiovascular complaints Respiratory: Respiratory: Reports no additional respiratory complaints Gastrointestinal: Gastrointestinal: Reports no additional gastrointestinal complaints Genitourinary: Genitourinary: Reports no additional female genitourinary complaints Musculoskeletal: Musculoskeletal: Reports no additional musculoskeletal complaints [facility] Past Medical History Medical History Nasal pain Left ear impacted cerumen Nasal vestibulitis Fever Diverticulitis Frequent epistaxis Bleeding from both ears Anogenital lichen sclerosus Cellulitis and abscess of buttock Frequent falls Glucosuria Cristina infection Abscess Helicobacter positive gastritis Screening for osteoporosis Nasal lesion Skin exam for malignant neoplasm Degenerative disc disease, cervical Degenerative disc disease, lumbar Diverticulitis of sigmoid colon Lichen sclerosus Postmenopausal History of abnormal mammogram Ulnar neuropathy at elbow Pain aggravated by physical activity Forgetfulness Panic attacks Restless leg syndrome History of kidney stones Renal cyst, left Hypothyroidism Chronic diarrhea Allergic dermatitis Chronic pain disorder Essential (primary) hypertension Generalized anxiety disorder Irritable bowel syndrome with diarrhea Obstructive sleep apnea (adult) (pediatric) Likely obstructive sleep apnea however patient has not have polysomnogram Urinary incontinence in female Morbid (severe) obesity due to excess calories GERD without esophagitis Asthma Hepatic steatosis Hyperlipemia, mixed Type 2 diabetes mellitus with diabetic neuropathy Depression Fibromyalgia Basal cell carcinoma Surgical History Surgical History History of sinus surgery History of tonsillectomy History of cervical discectomy History of colonoscopy with polypectomy History of dental surgery History of carpal tunnel surgery History of appendectomy (~1980) History of total hysterectomy with bilateral salpingo-oophorectomy (BSO) (~1980) History of cholecystectomy (~1995) History of lithotripsy (~2001) Family History Family History Father Hypertension Cerebrovascular accident Family history of suicide, Onset Age: 72 Mother Family history of malignant neoplasm Family history of primary malignant neoplasm of liver, Onset Age: 50 Liver cancer Grandparent Cerebrovascular accident Sibling Patient's brother is in good health Patient's sister is Daughter Abscess Other Diabetes mellitus Social History Social History Social History: Surrogate medical decision maker: Estefanía Gutierrez and Dalila Oconnor (daughters). Code status: Full code. Caffeine-daily Smoking status: Never smoker Second hand tobacco smoke exposure: Yes Alcohol intake: current Drinks per week: 1 Alcohol use details: Occasional Substance use: never Substance use type: does not use Other substance usage details: CBD Last use: cbd gummies Do You Feel Safe in your Home?: Yes Lack of Transportation: No Lack of Food: Never True Current Housing: I Have Housing Concerned About Future Housing: No Difficulty Paying Gas/Electric Bills: No Difficulty Paying for Meds: No Currently Unemployed: No Education: Associate Degree Difficulty w/ Childcare or Family Care: No Living arrangements: alone Additional living arrangements comments: fall 2022. Occupation/Education: retired Additional occupation/education comments: [employer] Spiritual care concerns: No Exam 2 Narrative: GENERAL: Well-appearing, well-nourished, and in no acute distress. HEAD: Normocephalic, atraumatic. Eyes: PERRLA, EOMI, mild injection of the conjunctiva. ENT: Mucous membranes moist. CHEST: Clear to auscultation. No respiratory distress. HEART: Tachycardic irregular. Normal peripheral pulses. ABDOMEN: Soft, nontender, nondistended. Back: No reproducible midline tenderness the T/L-spine. No significant paraspinal tenderness. No CVA tenderness. EXTREMITIES: Normal range of motion. No edema. SKIN: Warm, dry, no rash. NEURO: Alert and oriented x3. PSYCH: Normal mood and affect. Course Course Emergency Course: Patient resting comfortably. Feels improved after receiving 1 dose of morphine. She is also being provided artificial tears. Feels comfortable discharge home. Troponin negative. Cbc and CMP otherwise unremarkable with exception of glucose of 340 which she has not given herself any insulin. Chest x-ray normal. EKG with sinus tachycardia. Vital Signs Vital signs: Vital Signs Temperature 98.1 F 05/18/25 15:01 Pulse Rate 112 H 05/18/25 15:01 Respiratory Rate 22 H 05/18/25 15:01 Blood Pressure 174/78 H 05/18/25 15:01 Pulse Oximetry 97 05/18/25 15:01 Oxygen Delivery Room Air 05/18/25 15:01 Temperature 98.1 F 05/18/25 15:01 Pulse Rate 100 05/18/25 17:49 Respiratory Rate 20 05/18/25 17:49 Blood Pressure 158/90 H 05/18/25 17:49 Pulse Oximetry 97 05/18/25 17:49 Oxygen Delivery Room Air 05/18/25 17:51 Medical Decision Making Vital Signs Vital Signs: Vital Signs Temperature 98.1 F 05/18/25 15:01 Pulse Rate 112 H 05/18/25 15:01 Respiratory Rate 22 H 05/18/25 15:01 Blood Pressure 174/78 H 05/18/25 15:01 Pulse Oximetry 97 05/18/25 15:01 Oxygen Delivery Room Air 05/18/25 15:01 Temperature 98.1 F 05/18/25 15:01 Pulse Rate 100 05/18/25 17:49 Respiratory Rate 20 05/18/25 17:49 Blood Pressure 158/90 H 05/18/25 17:49 Pulse Oximetry 97 05/18/25 17:49 Oxygen Delivery Room Air 05/18/25 17:51 Lab Data 05/18/25 15:20 05/18/25 15:20 Labs: Lab Results 05/18/25 Range/Units 15:20 WBC 10.7 H (4.5-10.0) K/mm3 RBC 5.12 (4.2-5.4) M/mm3 Hgb 13.7 (12.0-15.0) g/dL Hct 42.2 (37.0-47.0) % MCV 82.4 (80-100) fl MCH 26.8 (26-34) pg MCHC 32.5 (32-36) g/dl RDW 14.7 H (11.5-14.5) % Plt Count 238 (150-375) k/mm3 MPV 10.8 H (7.4-10.4) fl Immature Gran % (Auto) 0.7 H (0-0.5) % Neut % (Auto) 60.5 (45.5-73.1) % Lymph % (Auto) 30.6 (18.3-44.2) % [place] % (Auto) 5.7 (2.6-8.5) % Eos % (Auto) 1.9 (0-4.4) % Baso % (Auto) 0.6 (0.2-1.2) % Lymph # (Auto) 3.26 H (0.9-3.2) K/mm3 [place] # (Auto) 0.6 (0.1-0.6) K/mm3 Eos # (Auto) 0.2 (0-0.3) K/mm3 Baso # (Auto) 0.1 (0.0-0.1) K/mm3 Abs Immat Gran (auto) 0.07 H (0.00-0.031) K/mm3 Absolute Neuts (auto) 6.5 (1.3-6.7) K/mm3 Absolute Nucleated RBC 0.000 (0.0-0.012) K/mm3 Nucleated RBC % 0.0 (0.0-0.2) % Sodium 137 (137-145) mmol/L Potassium 3.6 (3.4-5.0) mmol/L Chloride 104 (98-107) mmol/L Carbon Dioxide 23 (22-30) mmol/L Anion Gap 10 (4-12) mmol/L BUN 11 (7-17) mg/dL Creatinine 0.73 (0.7-1.0) mg/dL Estim Creat Clear Calc 63 ml/min Estimated GFR > 60 (59 - ) Glucose 340 H (65-110) mg/dL Calcium 9.4 (8.4-10.2) mg/dL Total Bilirubin 0.3 (0.2-1.3) mg/dL AST 25 (14-36) U/L ALT 19 (6-35) U/L Alkaline Phosphatase 127 H (38-126) U/L Troponin I < 0.012 (0.000-0.034) ng/mL Total Protein 6.9 (6.3-8.2) g/dL Albumin 4.1 (3.5-5.1) g/dL Imaging Data Radiologist's impression: ITS Impressions Chest X-Ray 05/18/25 15:52 Impression: No acute cardiopulmonary abnormality. ECG Data EKG #1: ECG completion date: 05/18/25 ECG completion time: 15:09 EKG Interpretation: tachycardia (110), sinus rhythm, no ST changes, normal QRS and normal QT Discharge Plan Discharge Clinical Impression: Low back pain, Dry eye Patient Disposition: Home Condition: Stable Instructions: Eye Lubricant (Into the eye), Back Pain (ED) Additional Instructions: Please return to the emergency department if you develop severe pain that is not controlled by pain medications or if you are unable to walk because of pain or weakness. Return to the emergency department immediately if you develop fevers, loss of bowel or bladder control (dribbling of urine or having accidents you wouldn't normally have), inability to urinate, numbness of your genital or anal area, or weakness/numbness of your legs or arms as these could all be signs of a serious medical emergency. Patient Language: Bengali Prescriptions: New acetaminophen 500 mg capsule 500 mg PO QID PRN (Reason: pain) Qty: 20 0RF No Action nystatin 100,000 unit/gram powder 1 applic topical TID PRN (Reason: Itching) Qty: 30 1RF (DME) blood-glucose meter [Accu-Chek Guide Glucose Meter] Misc See Rx Instructions .Route Qty: 1 0RF Rx Instructions: As directed for diabetes duloxetine 60 mg capsule,delayed release(DR/EC) 60 mg PO DAILY Qty: 90 1RF glimepiride 4 mg tablet 8 mg PO .hs Qty: 60 3RF Rx Instructions: administer with breakfast alprazolam 1 mg tablet 1 mg PO DAILY Qty: 30 0RF cyclobenzaprine 10 mg tablet 10 mg PO TID PRN (Reason: muscle spasm) Qty: 30 1RF ropinirole 1 mg tablet 4 mg PO QHS Qty: 120 6RF hydrocodone-acetaminophen 5-325 mg tablet 1 tablet PO Q6H PRN (Reason: pain) Qty: 10 0RF clobetasol 0.05 % cream 1 applic TOPICAL DAILY PRN (Reason: irritation) Rx Instructions: vaginal area albuterol sulfate 90 mcg/actuation HFA aerosol inhaler 2 puff inhalation Q4H PRN (Reason: Shortness Of Breath) Qty: 8.5 5RF Rx Instructions: INHALE 2 PUFFS EVERY 4 HOURS NEEDED FOR SHORTNESS OF BREATH OR WHEEZING (DME) Accu-Chek Guide test strips Strip See Rx Instructions .ROUTE .MEDSUPPLY Qty: 100 0RF Rx Instructions: Check glucose bid for diabetes albuterol sulfate 2.5 mg /3 mL (0.083 %) solution for nebulization 2.5 mg INHALATION Q4-6H PRN (Reason: shortness of breath or wheezing) Qty: 75 2RF omeprazole 40 mg capsule,delayed release(DR/EC) 40 mg PO DAILY Qty: 30 2RF bupropion HCl 300 mg tablet extended release 24 hr See Rx Instructions .ROUTE .COMPLEX Qty: 90 1RF Dose Instruction: TAKE 1 TABLET BY MOUTH EVERY MORNING Rx Instructions: TAKE 1 TABLET BY MOUTH EVERY MORNING insulin glargine [Lantus U-100 Insulin] 100 unit/mL solution 15 unit SUBCUT HS Qty: 10 0RF insulin lispro [Humalog KwikPen Insulin] 100 unit/mL insulin pen 1 sliding scale dose subcut USEASDIRECTD Qty: 15 2RF Rx Instructions: Use with sliding scale tid with meals. Max dose 80units daily ondansetron HCl 4 mg tablet 4 mg PO Q8H PRN (Reason: nausea and vomiting) Qty: 30 2RF Follow-up/Referrals: Sam Delgado MD [Primary Care Provider, Family Practice] - 1 Week
[2025-05-18] MEDS: ARTIFICIAL TEARS OPHTH SOLN 15 ML BOTTLE 1 DROP EACH EYE (19:30)
[2025-05-18 19:55] VITALS: BP 178/80; PULSE 68; RESP 18; O2SAT 99
== END 2025-05-18 20:00 | disposition home or self-care (01) ==
PROVIDERS: Emergency Provider Emergency Medicine; PCP Family Medicine
DX: M54.50 Low back pain, unspecified (principal); H04.129 Dry eye syndrome of unspecified lacrimal gland; R00.0 Tachycardia, unspecified; G25.81 Restless legs syndrome; Z87.442 Personal history of urinary calculi; E03.9 Hypothyroidism, unspecified; I10 Essential (primary) hypertension; F41.9 Anxiety disorder, unspecified; G47.30 Sleep apnea, unspecified; K21.9 Gastro-esophageal reflux disease without esophagitis; J45.909 Unspecified asthma, uncomplicated; K76.0 Fatty (change of) liver, not elsewhere classified; E11.40 Type 2 diabetes mellitus with diabetic neuropathy, unspecified; F32.A Depression, unspecified; M79.7 Fibromyalgia
CPT/HCPCS: 36415; 71046; 80053; 84484; 85025; 93005; 96374; 99284; A9270; J2270; J7030

== ENCOUNTER 2025-06-06 12:38 | Outpatient (CLI) | payer MEDICARE, SELFPAY ==
--- NOTE | ~2025-06-06 | CT_ITS ---
EXAMINATION: CT abdomen pelvis wo con DATE: 06/06/2025 13:07 INDICATION: Unspecified abdominal pain. TECHNIQUE: Computed tomography (CT) of the abdomen and pelvis was performed without intravenous contrast. Automated exposure control and iterative reconstruction technique were employed. The dose-length product was 1046.04 mGy-cm. COMPARISON: CT abdomen and pelvis 01/08/25 FINDINGS: The visualized portions of the lung bases demonstrate mild atelectasis. No pleural effusion. The heart size is normal. There are coronary artery calcifications. No pericardial effusion. The liver is normal. There are changes of cholecystectomy. The common duct is dilated to 16 mm and measured 13 mm on 01/08/2025. The spleen, pancreas, adrenal glands are normal. There is cortical thinning of the kidneys. There are 2 stones in right kidney measuring up to 3 mm. There is a 2 mm stone in left kidney. There is diverticulosis of the colon without evidence of diverticulitis. There are no dilated loops of bowel. The appendix is not visualized. There are no pathologically enlarged lymph nodes. There is no free intraperitoneal fluid. There is severe thoracic and lumbar spondylosis. IMPRESSION: 1. Extrahepatic biliary duct dilatation status post cholecystectomy. Correlate with liver function tests to determine if this finding is clinically significant. Reviewed, dictated and finalized at location E. IMPRESSION: 1. Extrahepatic biliary duct dilatation status post cholecystectomy. Correlate with liver function tests to determine if this finding is clinically significan angella
--- OUTSIDE RECORDS SUMMARY | 2025-06-06 12:42 | XMS_ITS | Clinical Summary ---
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
--- OUTSIDE RECORDS SUMMARY | 2025-06-06 12:42 | XMS_ITS | Clinical Summary ---
Author Organization [facility] Address [address] [place] [address] Care Team Providers Care Supervisor Blood Name Role Phone Mere Harris NP Primary Care Provider Allergies Active Allergy Reactions Criticality Noted Date Comments Adhesive Tape-Silicones Rash Medium Ciprofloxacin Nausea & Vomiting Low 02/01/2025 Penicillins Nausea & Vomiting Low Jslbgrk-Kof-Vlo Reductase Inhibitors Hives Medium Sulfa Nausea & [...] CDT - 03/21/2025 7:27 PM CDT Emergency [facility] Emergency Department [address] [place] [address] Shortness of breath; Lumbar back pain Discharge [...] reflux disease GERD Hyperlipidemia Hyperlipidemia Diabetes mellitus Sleep apnea Family History Medical History Relation [...] drink = 0.6 oz pur e alcohol) [facility] Utilities Answer Date Recorded In the past 12 months has e electric, gas, oil, or water company [...] often do you attend chur ch or mandaen services? Never 02/03/2025 Do you belong to [...] living in a snf (including now)? 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 Gender Identity Not on file Sexual Orientation [...] Risk Assessment 02/03/2026 02/03/2025 eGFR 03/21/2026 03/21/2025, 06/0 10/2024, 02/02/2025, Additional history exists Procedures Procedure Name [...] CDT HEMOGLOBIN A1C Routine 07/23/2024 9:07 AM PLATFORM MATERIAL HANDLING SUPERVISOR from Last 3 Months or Most Recently [...] LAB BLOOD ORDERABLES Fin al Result [facility] [id number] Department [place] [address] * (ABNORMAL) Sepsis Lactate w/ Reflex (03/21/2025 6:02 PM CDT) Sepsis Lactate 2.2(H) 0.7 - 2.0 mmol/L Blood 03/21/2025 6:02 PM CDT 03/21/2025 6:06 PM CDT Justice NOGUEIRA LAB BLOOD ORDERABLES Final Result Performing Organization Address [facility] Co de Phone Number FREDERICK JOINER [phone] [facility] [email or web address] [place] [address] * Troponin T high-sensitivity 2-hour (03/21/2025 3:20 PM CDT) Pathologist [facility] Trop T hs 11 <=14 ng/L Comment: Interpretive Data For further hscTnT resources including the diagnostic algorithm and an aid in interpretation, copy and paste this link: https://nrl.testcatalog.org/show/hsTrop Current Interpretive Data last revised 2020. Trop T hs delta 1 ng/L [facility] Trop T hs interp Insignificant [facility] Blood 03/21/2025 3:20 PM CDT 03/21/2025 3:33 PM CDT Jhon Pride MD LAB BLOOD ORDERABLES Fin al Result Performing Organization Address [facility] Co de Phone Number FR[facility]ERICK MARISEL [id number] [facility] [email or web address] [place] [address] * (ABNORMAL) Sepsis Lactate w/ Reflex (03/21/2025 3:20 PM CDT) Pathologist [facility] Sepsis Lactate 2.1(H) 0.7 - 2.0 mmol/L Blood 03/21/2025 3:20 PM CDT 03/21/2025 3:24 PM CDT Justice NOGUEIRA LAB BLOOD ORDERABLES Final Result Performing Organization Address [facility] Co de Phone Number JULIANJENIFER [id number] Department [place] [address] * Pro B-type natriuretic peptide (03/21/2025 3:20 [...] NOGUEIRA LAB BLOOD ORDERABLES Final Result [place] [address] Department [email or web address] [place] [address] * Thyroid Function [place] (03/21/2025 3:20 PM CDT) TSH 2.64 0.30 - 4.20 mcIUnit/mL Blood 03/21/2025 3:20 PM CDT 03/21/2025 3:33 PM CDT Justice NOGUEIRA LAB BLOOD ORDERABLES Final Result Performing Organization Address [facility] Co de Phone Number FREDERICK JOINER [id number] [email or web address] [address] * (ABNORMAL) Urinalysis reflex to microscopic and culture Urine (03/21/2025 3:20 PM CDT) Color, ur Straw Yellow Clarity, ur Clear [...] tendency for uric acid stone formation. Source: [facility] Current Interpretive Data was last revised [...] NERAL ORDERABLES Final Result Performing Organization Address [facility]/ZIP Co de Phone Number FREDERICK JOINER [phone] Department [place] [address] * Respiratory pathogen panel Nasopharyngeal (03/21/2025 3:20 PM CDT) Influenza A RNA Not Detected Not Detected Influenza B RNA Not Detected Not Detected CERNER CH RSV RNA Not Detected Not Detected CERNER CH COVID-19 RNA Not Detected Not Detected CERNER CH Coronavirus 229E RNA Not Detected Not Detected CERNER CH Coronavirus HKU1 RNA Not Detected Not Detected CERNER Coronavirus NL63 RNA Not Detected Not Detected CERNER Coronavirus OC43 RNA Not Detected Not Detected CERNER Adenovirus DNA Not Detected Not Detected CERNER CH Metapneumovirus RNA Not Detected Not Detected CERNER Rhinovirus/Enterov irus RNA Not Detected Not Detected CERNER Parainfluenza 1 RNA Not Detected Not Detected CERNER Parainfluenza 2 RNA Not Detected Not Detected CERNER Parainfluenza 3 RNA Not Detected Not Detected CERNER Parainfluenza 4 RNA Not Detected Not Detected [facility] B. pertussis DNA Not Detected Not Detected [facility] B. parapertussis DNA Not Detected Not Detected [facility] C. pneumoniae DNA Not Detected Not Detected CERNER M. pneumoniae DNA Not Detected Not Detected [facility] Comment: Interpretive Data The KOTURA FilmArray Respiratory Panel (RP2.1) assay is a [...] assay has FDA clearance for testing of WARPER FIXER swabs. The performance characteristics of this assay have been determined by [facility]. Current interpretive data was last revised on 2021. Nasopharyngeal 03/21/2025 3: 20 PM CDT 03/21/2025 3:24 PM CDT Narrative [facility] - 03/21/2025 4:22 PM CDT Is the Patient experiencing symptoms consistent with COVID?->Yes Surveillance testing for transplant patient?->No Justice NOGUEIRA LAB MICROBIOLOGY - [facility] ORDERABLES Final Result Performing Organization Address [facility] Co de Phone Number FR[place]ERICK [address] Department [place] [address] CH * ECG 12 lead (03/21/2025 3:03 PM CDT) 03/21/2025 3:03 PM CDT Narrative [facility] - 03/22/2025 8:32 AM CDT Vent Rate: 89 bpm RR Interval: 673 msec HI Interval: 129 msec QRS Duration: 90 msec QT Interval: 353 msec QTC Interval: 399 msec P-R-T Fulda: 11 - 69 - 14 degrees IMPRESSION: SINUS RHYTHM NORMAL ECG Electronically Signed By: Alexei Alberts MD, [facility] Klever Bell MD ECG ORDERABLES Final Resul t [facility] * XR Chest 1 Vw Portable (If [...] BLOOD ORDERABLES Andrez evelin Result - Final [place] [address] [address] Department [email or web address] [place] [address] * eGFR (03/21/2025 1:38 PM CDT) Pathologist [facility] eGFR >90 >=60 mL/min/1. 73 m2 Comment: [...] MD LAB BLOOD ORDERABLES Fin al Result [facility] [address] Department [place] [address] * (ABNORMAL) Differential, auto (03/21/2025 1:38 PM CDT) Neutrophil abs 6.68(H) 1.50 - 6.50 K/cumm Imm gran abs 0.09 0.00 - 0.10 K/cumm [facility] Lymphocyte abs 3.84(H) 0.80 - 3.30 K/cumm [facility] Monocyte abs 0.71 0.20 - 0.80 K/cumm [facility] Eosinophil abs 0.22 0.00 - 0.50 K/cumm [facility] Basophil abs 0.05 0.00 - 0.10 K/cumm [facility] Neutrophil pct 57.7 % [facility] Comment: Interpretive Data Percent cell count reference ranges are not reported, since discordance with absolute values may lead to misinterpretation of CBC data. Current Interpretive Data was last revised on 2017. Imm gran pct 0.8 % [facility] Comment: Interpretive Data Percent cell count reference ranges are not reported, since discordance with absolute values may lead to misinterpretation of CBC data. Current Interpretive Data was last revised on 2017. Lymphocyte pct 33.1 % [facility] Comment: Interpretive Data Percent cell count reference ranges are not reported, since discordance with absolute values may lead to misinterpretation of CBC data. Current Interpretive Data was last revised on 2017. Monocyte pct 6.1 % [facility] Comment: Interpretive Data Percent cell count reference ranges are not reported, since discordance with absolute values may lead to misinterpretation of CBC data. Current Interpretive Data was last revised on 2017. Eosinophil pct 1.9 % [facility]ICK Comment: Interpretive Data Percent cell count reference ranges are not reported, since discordance with absolute values may lead to misinterpretation of CBC data. Current Interpretive Data was last revised on 2017. Basophil pct 0.4 % [facility] Comment: Interpretive Data Percent cell count reference ranges are not reported, since discordance with absolute values may lead to misinterpretation of CBC data. Current Interpretive Data was last revised on 2017. Blood 03/21/2025 1:38 PM CDT 03/21/2025 1:51 PM CDT us Jhon Pride MD LAB BLOOD ORDERABLES Fin al Result [facility] [address] [address] Department [place] [address] * (ABNORMAL) CBC with auto differential (03/21/2025 1:38 PM CDT) WBC 11.59(H) 3.80 - 9.90 K/cumm Hgb 13.4 11.9 - 15.5 g/dL [facility] Hct 42.8 35.6 - 45.5 % [facility] Plt 289 150 - 400 K/cumm CERNER CH MPV 10.4 9.1 - 12.3 fL CERNER RBC 5.05 3.90 - 5.20 M/cumm CERNER CH MCV 84.8 81.3 - 96.4 fL CERNER CH MCH 26.5(L) 27.1 - 33.3 pg CERNER MCHC 31.3(L) 32.3 - 35.7 g/dL CERNER CH RDW CV 14.9 11.1 - 14.9 % CERNER CH RDW SD 46.3 35.7 - 48.1 fL CERNER CH NRBC abs 0.00 0.00 - 0.01 K/cumm CERNER Blood 03/21/2025 1:38 PM CDT 03/21/2025 1:51 PM CDT us Jhon Pride MD LAB BLOOD ORDERABLES Fin al Result [facility] [address] [address] Department [place] [address] * (ABNORMAL) Comprehensive metabolic panel (03/21/2025 1:38 PM CDT) Sodium 135 135 - 145 mmol/L Potassium, pl 4.5 3.3 - 4.9 mmol/L [facility] Chloride 101 97 - 110 mmol/L [facility] CO2 20(L) 22 - 32 mmol/L [facility] Anion gap 14 2 - 15 mmol/L [facility] BUN 13 6 - 25 mg/dL [facility] Creatinine 0.67 0.60 - 1.10 mg/dL [facility] Glucose 325(H) 70 - 199 mg/dL [facility] Comment: Interpretive Data Fasting glucose [...] ORDERABLES Fin al Result Performing Organization Address [facility] Co de Phone Number [facility] [address] Department [place] [address] * ECG 12 lead (03/21/2025 1:32 PM CDT) 03/21/2025 1:32 PM CDT Narrative [facility] - 03/21/2025 3:08 PM CDT Vent Rate: 94 bpm RR Interval: 632 msec HI Interval: 138 msec QRS Duration: 89 msec QT Interval: 349 msec QTC Interval: 401 msec P-R-T Fulda: 44 - -7 - 57 degrees IMPRESSION: SINUS RHYTHM POSSIBLE ANTERIOR MYOCARDIAL INFARCTION , OF INDETERMINATE AGE INFERIOR MYOCARDIAL INFARCTION , PROBABLY OLD Electronically Signed By: Alexei Alberts MD, [facility] Jhon Pride MD ECG ORDERABLES Final Re sult Performing Organization Address [facility] Co de Phone Number [facility] [employer] [facility] * (ABNORMAL) Hemoglobin A1c (07/23/2024 9:07 AM PLATFORM MATERIAL HANDLING SUPERVISOR) Hgb A1C 9.8(H) 4.0 - 5.6 % Comment:Testing performed by : [facility], [address] [place] [address]., [id number] Estimated Average Glucose 235 mg/dL FR[facility]ERICK VALENCIA Comment: The ADA recommends reporting an estimated Average Glucose (eAG) with all Hemoglobin A1c results using the equation derived from a study of 507 normal and diabetic adults. Minority populations were underrepresented and children were not included. (Diabetes Care 31:7576-5742, 2008). The eAG is not equivalent to a fasting glucose. Testing performed by: [facility], [address] [place] [address]., [id number] Blood 07/23/2024 9:07 AM PLATFORM MATERIAL HANDLING SUPERVISOR 07/23/2024 9:50 AM PLATFORM MATERIAL HANDLING SUPERVISOR us Juliano Chavarria MD LAB BLOOD ORDERABLES Final Result FREDERICK VALENCIA [address] [facility] Department [place] [address] from Last 3 Months or Most Recently Relevant to Health Maintenance Insurance [facility] MEDIC[facility] ADVANTAGE [facility] Address: [facility] [address] [place] [address] [facility] MEDIC[facility] ADVANTAGE [facility] Address: [facility] [address] [place] [address] Advance Directives For more information, please contact: [phone] * Full Code (Latest Code Status on File) Date Activated Date Inactivated Comments 02/02/2025 4:37 AM 02/03/2025 11:02 PM * Full Code Date Activated Date Inactivated Comments 08/28/2024 7:07 AM 09/02/2024 6:00 PM * Full Code Date Activated Date Inactivated Comments 07/22/2024 3:20 AM 07/25/2024 3:36 PM Care Teams Supervisor Blood Relationship Specialty Start Date End Date Mere Harris NP [address] [address] PCP - General Urology 03/21/25
--- OUTSIDE RECORDS SUMMARY | 2025-06-06 12:42 | XMS_ITS | Clinical Summary ---
Author Organization [facility] Address [address] [facility] [place] [address] Care Team Providers Care Press Worker Helper Name Role Phone Sam Delgado MD Primary Care Provider [phone] Source Comments [facility],non-[facility] Affiliates and Associated Physician Practices is amultiple site organization consisting of ambulatory clinics and hospital sitesin [place], [place] and [place]. This disclosure is being madepursuant to the Care Everywhere program and may not contain all information available regarding this patient. 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
== END 2025-06-06 12:39 | disposition home or self-care (01) ==
PROVIDERS: PCP Family Medicine; Visit Provider Nurse Practitioner Family
DX: R10.9 Unspecified abdominal pain (principal); Z87.442 Personal history of urinary calculi; Z90.49 Acquired absence of other specified parts of digestive tract
CPT/HCPCS: 74176